=== PATIENT | female | born 1970 | race Caucasian/White ===

== ENCOUNTER 2024-03-19 20:49 | Inpatient (IN) | payer OTHER, SELFPAY ==
[2024-03-19 20:49] VITALS: BP 165/97; PULSE 117; RESP 16; TEMP 36.2; O2SAT 95; BMI 35.9
--- NOTE | 2024-03-19 22:22 | CT_ITS ---
STUDY: CT ABDOMEN AND PELVIS WITH CONTRAST REASON FOR EXAM: Female, 54 years old patient with vomiting, mid-abdominal pain and history of small bowel obstruction. RADIATION DOSAGE (If Supplied By Facility): CTDIvol = ( 17.84 ) mGy, DLP = ( 1245.22 ) mGycm TECHNIQUE: Transaxial images were obtained from the dome of the diaphragm to the symphysis pubis without oral contrast. 100 mL of IV Isovue-370 was administered. Sagittal and coronal images were reconstructed. Individualized dose optimization techniques were used for this CT. COMPARISON: None. FINDINGS: The visualized lung bases are unremarkable. The visualized portions of the heart are within normal limits. There is decreased attenuation of the liver consistent with steatosis. Normal gallbladder and extrahepatic biliary system. Normal spleen. Normal pancreas. Normal bilateral adrenal glands. Normal right kidney. Normal left kidney. Normal visualized stomach. There appears to be dilated proximal small bowel located primarily in the left side of the abdomen with maximum transverse dimension of the abnormal small bowel measuring approximately 3.3 cm. There appears to be some fecalization of small bowel contents in this area consistent with fecal stasis. The small bowel proximal and distal to this are not dilated suggesting closed-loop obstruction possibly secondary to internal hernia or adhesion. The colon is not dilated. There is stool and/or gas scattered throughout the colon with scattered diverticula. The appendix is visualized and appears normal. There is multifocal atherosclerotic calcification of the abdominal aorta and iliac arteries, without a demonstrated aneurysm. Normal inferior vena cava. Normal retroperitoneum. Normal urinary bladder. Normal visualized uterus. Normal abdominal wall. Normal osseous structures. CT/Abdomen/Pelvis W IV Cont ONLY IMPRESSION: Findings are consistent with a proximal small bowel obstruction located primarily within the left side of the abdomen suggesting closed-loop obstruction secondary either to adhesions or internal hernia. Electronically Signed: Grace Mitchell MD at 0:40 EDT ,
--- NOTE | 2024-03-19 22:31 | EDS_ITS ---
HPI HPI - GI History of Present Illness Chief Complaint: Nausea/Vomiting Informant: patient Narrative Narrative: 54-year-old female with abdominal pain and nausea/vomiting. Symptoms started about 2 days ago with upper supraumbilical abdominal pain, moved down to the periumbilical area where it has been, followed by vomiting that has been bilious at times-blackish green according to patient, no blood or coffee-ground emesis. She been having little in the way of bowel movements, her last 1 was small and it was this morning no blood or melena. No diarrhea. She had some subjective fevers and chills earlier but did not check her temperature. No known contacts that have been sick with any of the symptoms. She is concerned that this may be a bowel obstruction some of the symptoms are similar to one that she had in the past. 16 years ago she had colorectal cancer and had a resection with anastomosis. No other abdominal surgeries. [facility] Medical History (Updated 03/20/24 @ 01:[address] Shira Hernandez MD) Obesity Diabetes mellitus, type 2 HLD (hyperlipidemia) Hypertension Colorectal cancer Home Medications ?Medication ?Instructions ?Recorded ?Last Taken ?Type lisinopril 10 mg tablet 10 mg PO DAILY #30 tabs 04/29/17 Unknown Rx atorvastatin 40 mg tablet 40 mg PO QHS cholesterol 03/19/24 Unknown History semaglutide 0.25 mg or 0.5 mg (2 0.5 mg subcut QWEEK 03/19/24 Unknown History mg/3 mL) subcutaneous pen injector (Ozempic) Allergy/AdvReac Type Severity Reaction Status Date / Time oxaliplatin Allergy Anaphylaxis Verified 03/19/24 20:49 Surgical History History of colon resection Social History (Updated 03/20/24 @ 01:[address] Shira Hernandez MD) household members: spouse Smoking Status: Never smoker alcohol intake: never substance use type: does not use ROS ROS ED Constitutional Constitutional ED: Reports chills, fever(s) and subjective Eyes Eyes: Denies change in vision or diplopia ENT ENT ED: Denies rhinorrhea or sore throat Cardiovascular Cardiovascular: Denies chest pain or palpitations Respiratory/Chest Respiratory/Chest: Denies cough or dyspnea Gastrointestinal Gastrointestinal: Reports abdominal pain, nausea and vomiting; Denies diarrhea Genitourinary Genitourinary ED: Denies dysuria or hematuria Musculoskeletal Musculoskeletal: Denies back pain or neck pain Integumentary Denies abscess or rash Neurologic Neurologic: Denies headache(s), paresthesias or weakness Psychiatric Psychiatric: Denies anxiety or suicidal thoughts EXAM Physical Exam Const Vital Signs: 03/19/24 20:49 03/19/24 22:49 03/20/24 00:00 Temperature 97.2 F L Temperature Source Temporal Pulse Rate 117 H 98 90 Respiratory Rate 16 16 18 Blood Pressure 165/97 H 151/89 H 168/77 H Blood Pressure Mean 119 109 107 Pulse Ox 95 92 96 Oxygen Delivery Method Room Air Room Air Room Air Positive well nourished and well developed Constitutional Narrative: Well-appearing General Appearance ED: well developed and NAD HEENT Reports moist mucous membranes normocephalic and atraumatic Eyes PERRL and EOMs intact bilaterally Neck full ROM and supple Resp normal respiratory effort and clear to auscultation bilaterally Cardio regular rate, regular rhythm and no murmurs Rate: tachycardic GI non-distended GI Narrative: Tender epigastric/supraumbilical/periumbilical, mild-moderate, no palpable hernia, good bowel sounds no guarding or rebound no other areas of tenderness. Auscultation: normoactive bowel sounds Palpation: soft Back/Spine no CVA tenderness General Back: other FROM Extremity normal to inspection General Extremety ED: Negative for edema, pulses abnormal or tenderness General Extremity: Negative for edema or pulses abnormal Neuro oriented x3, CN's II-XII intact bilaterally and no sensory deficits noted Sensorium / Orientation: awake and alert Motor Exam: strength 5/5 throughout Psych mental status grossly normal and thought process normal Skin no rashes or lesions noted and no wounds MDM MDM MDM Narrative Medical decision making narrative: Certainly considering small bowel obstruction in addition to large bowel obstruction, in addition to gastroenteritis since she was experiencing subjective fevers. She has a high white blood count, and a CT was obtained. I reviewed the images and the result which I agree with, it is consistent with a proximal small bowel obstruction possible internal hernia versus adhesions. Clinically after IV fluids, Zofran, morphine patient is doing very well with no more vomiting, definitely feeling better, but should be admitted for this. Discussed with surgery Dr. Hendrix who agrees with holding off on NG for right now but advises placing it if the patient continues to vomit, given that this appears to be a closed-loop obstruction and she may end up needing a laparos copy; requests that I speak with hospitalist regarding admission. Lab Data Attestation: I reviewed the patient's lab results. Labs: Laboratory Results - last 24 hr 03/19/24 03/20/24 23:05 00:10 WBC 19.0 H RBC 5.27 Hgb 14.9 Hct 43.9 MCV 83.3 MCH 28.3 MCHC 33.9 RDW Std Deviation 37.2 RDW Coeff of Prema 12.3 Plt Count 376 MPV 10.7 Immature Gran % (Auto) 0.900 Neut % (Auto) 84.6 H Lymph % (Auto) 9.5 L [place] % (Auto) 4.7 Eos % (Auto) 0.0 Baso % (Auto) 0.3 Absolute Neuts (auto) 16.1 H Absolute Lymphs (auto) 1.80 Nucleated RBC % 0 Sodium 136 Potassium 4.1 Chloride 99 Carbon Dioxide 28.0 Anion Gap 9 BUN 16 Creatinine 0.94 Estim Creat Clear Calc 64.02 Est GFR (MDRD) Af Amer 79 Est GFR (MDRD) Non-Af 66 BUN/Creatinine Ratio 17.1 Glucose 276 H Calcium 10.0 Total Bilirubin 0.80 AST 17 ALT 28 Alkaline Phosphatase 85 Total Protein 7.7 Albumin 3.9 Globulin 3.8 Albumin/Globulin Ratio 1.0 Lipase 30 Urine Color Yellow Urine Clarity Clear Urine pH 6.5 Ur Specific Center [place] 1.010 Urine Protein 15 H Urine Glucose (UA) Normal Urine Ketones Negative Urine Occult Blood Negative Urine Nitrite Negative Urine Bilirubin Negative Urine Urobilinogen Normal Ur Leukocyte Esterase 100 H Urine RBC 0 SEEN Urine WBC 0-5 SEEN Ur Squamous Epith Cells 0 SEEN Urine Bacteria 0 SEEN Urine Mucus 0 SEEN Radiography Diagnostic Testing: Clinical Impression(s) from Imaging Studies Abdomen/Pelvis CT 03/19/24 22:22 IMPRESSION: Findings are consistent with a proximal small bowel obstruction located primarily within the left side of the abdomen suggesting closed-loop obstruction secondary either to adhesions or internal hernia. Electronically Signed: Grace Mitchell MD at 0:40 EDT Reading Location ID and State: [facility] / [place] , Service support , Management Discussion w/another healthcare provider: Hospitalist and [employer] (Surgery) Discharge Plan Dx/Rx/DC Orders Clinical Impression: Complete small bowel obstruction Disposition Disposition: Acute Care Hospital [facility]
[2024-03-19 22:49] VITALS: BP 151/89; PULSE 98; RESP 16; O2SAT 92
[2024-03-19] MEDS: Ondansetron 4 MG/2 ML Vial IV (23:01)
[2024-03-19] MEDS: Morphine 4 MG/ML Syringe IV (23:01)
[2024-03-19] MEDS: 0.9% Normal Saline (1000mL) 1,000 ML 999 ML IV (23:03)
[2024-03-19 23:13] LABS: Absolute Neutrophil Count 16.1 X10^3/uL (2.0-7.7); Basophil# 0.05 X10^3/uL; Basophil% 0.3 % (0-1); Hematocrit 43.9 % (37-47); Hemoglobin 14.9 g/dL (12.0-15.0); Lymphocyte % 9.5 % (19-41); Mean Corp Hgb Conc 33.9 g/dL (32-36); Mean Corpuscular Hgb 28.3 pg (27.0-32.0); Mean Corpuscular Volume 83.3 fL (81-99); Mean Platelet Vol. 10.7 fl (6.2-12.0); Monocyte% 4.7 % (0-10); NRBC Flagged by Analyzer 0 % (0-5); Neutrophil # 16.09 X10^3/uL (2.7-7.7); Neutrophil % 84.6 % (47-70); Platelet Count 376 K/mm3 (150-450); RBC Distribution Width CV 12.3 % (11.6-14.6); RBC Distribution Width SD 37.2 fl (35.1-43.9); Red Blood Count 5.27 M/mm3 (4.2-5.4)
[2024-03-19 23:29] LABS: AST(SGOT) 17 U/L (15-37); Alanine Aminotransfer ALT/SGPT 28 U/L (13-56); Albumin, Serum 3.9 g/dL (3.2-5.0); Alkaline Phosphatase 85 U/L (45-117); Anion Gap 9 (5-15); BUN 16 mg/dL (7-18); BUN/Creat Ratio 17.1 RATIO (10-20); Chloride 99 mmol/L (98-107); Creatinine, Serum 0.94 mg/dL (0.55-1.02); EST Glomerular Filtration Rate 66 mL/min (>60); Est Glom Filt Rate - Afr Amer 79 mL/min (>60); Estimated Creatinine Clearance 64.02 ml/min; Globulin 3.8 g/dL (2.2-4.2); Glucose 276 mg/dL (74-106); Lipase 30 U/L (13-75); Potassium 4.1 mmol/L (3.5-5.1); Protein, Total 7.7 g/dL (6.4-8.2); Sodium Level 136 mmol/L (136-145)
--- OUTSIDE RECORDS SUMMARY | 2024-03-19 23:46 | XMS RPT_ITS | CCD ---
Author Organization [facility] Care Team Providers Care Machine Packer Name Role Phone Luis Staely MD Primary Care Provider [phone] LUIS STALEY Primary Care Unavailable CLAIRE, RACHEL Attending Unavailable LUIS STALEY Primary Care Unavailable REBEKA, LUIS Maya Referring Unavailable REBEKA, LUIS Maya Primary Care Unavailable BULOW, RACHEL Referring Unavailable JESUS ORTIZ Attending Unavailable REBEKA, LUIS Maya Primary Care Unavailable BULOW, RACHEL Referring Unavailable REBEKA, LUIS Maya Primary Care Unavailable REBEKA, LUIS Maya Referring Unavailable REBEKA, LUIS Maya Primary Care Unavailable LUIS STALEY Attending Unavailable REBEKA, LUIS Maya Primary Care Unavailable ROLF PATINO Attending Unavailable REBEKA, LUIS Maya Primary Care Unavailable RACHEL ESCALANTE R Attending Unavailable LUIS STALEY Primary Care Unavailable HIGINIO CAMPUZANO Attending Unavailable BRODERICK ANSARI Referring Unavailable REBEKA, LUIS Maya Primary Care Unavailable BULOW, RACHEL Referring Unavailable BULOW, RACHEL Referring Unavailable REBEKA, LUIS Maya Primary Care Unavailable REBEKA, LUIS Maya Primary Care Unavailable BULOW, RACHEL Referring Unavailable REBEKA, LUIS Maya Primary Care Unavailable LUIS STALEY Attending Unavailable REBEKA, LUIS Maya Primary Care Unavailable BULOW, RACHEL Referring Unavailable REBEKA, LUIS Maya Primary Care Unavailable RACHEL ESCALANTE Attending Unavailable LUIS STALEY Primary Care Unavailable REBEKA, LUIS Maya Referring Unavailable REBEKA, LUIS Maya Primary Care Unavailable BULOW, RACHEL Referring Unavailable BRODERICK ANSARI Attending Unavailable REBEKA, LUIS Maya Primary Care Unavailable BULOW, RACHEL Referring Unavailable REBEKA, LUIS Maya Primary Care Unavailable LUIS STALEY Primary Care Unavailable ROLF PATINO Attending Unavailable LUIS STALEY Primary Care Unavailable LUIS STALEY Referring Unavailable Rebeka Luis CHANDLER Primary Care Provider [phone] Allergies Allergy Classification Reported Allergen(s) Allergy Type Date of Onset Reaction(s) Facility oxaliplatin (2 sources) oxaliplatin Drug Allergy 02-22-2008 Anaphylaxis [facility] (20 sources) oxaliplatin; Translations: [OXALIPLATIN] Drug Allergy 02-22-2008 Anaphylaxis [facility] Medications Current Medications Medication Drug Class(es) Dates Sig (Normalized) Sig (Original) acetaminophen 500 mg oral tablet (2 sources) Start: 09-09-2007 End: 12-19-2021 take 1 tablet rectal route once as needed for pain acetaminophen(TYLENO L EXTRA STRENGTH 500 MG TAB) Indications: Malignant neoplasm of rectum (HCC) Take two(2) tablets every six(6) hours as needed for pain. 0 09/09/2007 12/19/2021 Discontinued Comment on above: Take two(2) tablets every six(6) hours as needed for pain. atorvastatin 40 mg oral tablet (20 sources) HMG-CoA Reductase Inhibitor Start: 06-20-2021 End: 01-29-2025 take 1 tablet by mouth once daily at bedtime for hyperlipidemia atorvastatin (LIPITOR) 40 mg tablet Indications: Mixed hyperlipidemia Take 1 tablet by mouth daily at bedtime. For cholesterol. 90 tablet 3 12/13/2022 12/08/2023 Active Comment on above: Take 1 tablet by olu th daily at bedtime. For cholesterol. Blood Glucose Control, Normal soln (20 sources) Start: 03-06-2020 Blood Glucose Control, Normal soln Indications: Diabetes mellitus without complication (HCC) Use as directed 1 Each 1 03/06/2020 Active Comment on above: Use as directed Blood-Glucose Meter (20 sources) Start: 03-06-2020 Blood-Glucose Meter Indications: Diabetes mellitus without complication (HCC) Test One time a day. 1 Each 03/06/2020 Active Start: 03-06-2020 Blood-Glucose Meter Indications: Diabetes mellitus without complication (HCC) Test One time a day. 1 Each 0 03/06/2020 Active Comment on above: Test One time a day. CPAP/BIPAP/OTHER (4 sources) Start: 12-08-2023 End: 04-24-2051 CPAP/BIPAP/OTHER Type .CPAPSettings into a note to see current settings/supplies/DME information. 1 Each 12/08/2023 04/24/2051 Active Start: 12-08-2023 End: 04-24-2051 CPAP/BIPAP/OTHER Type .CPAPS ettings into a note to see current settings/supplies/DME information. 1 Each 0 12/08/2023 04/24/2051 Active lisinopril 20 mg oral tablet (20 sources) Angiotensin Converting Enzyme Inhibitor Start: 06-20-2021 End: 08-02-2024 take 1 tablet by mouth once daily lisinopril (ZESTRIL) 20 mg tablet Indications: Essential hypertension Take 1 tablet by mouth once daily. 90 tablet 1 08/13/2023 02/09/2024 Active Comment on above: Take 1 tablet by olu th once daily. semaglutide (OZEMPIC) 0.25 mg or 0.5 mg (2 mg/3 mL) pen (5 sources) Start: 12-05-2023 End: 12-04-2024 inject 0.5 mg by subcutaneous injection every week semaglutide (OZEMPIC) 0.25 mg or 0.5 mg (2 mg/3 mL) pen Indications: Diabetes mellitus without complication (HCC) Inject 0.5 mg subcutaneously one time a week. 3 mL 11 12/05/2023 12/04/2024 Active Vitamin B Complex (5 sources) vitamin B comple x (B COMPLEX ORAL) Take by mouth once daily. Active vitamin B comple x (B COMPLEX ORAL) Take by mouth once daily. 0 Active Completed/Discontinued Medications Medication Drug Class(es) Dates Sig (Normalized) Sig (Original) Benzocaine (1 source) Standardized Chemical Allergen Start: 11-13-2023 End: 11-13-2023 benzocaine 20% 1 [place] (TOPEX) calcium chloride 0.0014 meq/ml / potassium chloride 0.004 meq/ml / sodium chloride 0.103 meq/ml / sodium lactate 0.028 meq/ml injectable solution (1 source) Start: 11-13-2023 End: 11-13-2023 lactated ringers iv infusion diphenhydrAMINE (1 source) Histamine-1 Receptor Antagonist Start: 11-13-2023 End: 11-13-2023 diphenhydrAMINE 12.5-50 mg injection (BENADRYL) 0.5 ml dulaglutide 3 mg/ml auto-injector (6 sources) GLP-1 Receptor Agonist Start: 12-18-2020 End: 12-19-2022 inject 1 dose by subcutaneous injection every week dulaglutide (TRULICITY) 1.5 mg/0.5 mL pen injector Indications: Diabetes mellitus without complication (HCC) Inject 1.5 mg subcutaneously one time a week. Inject once per week. Discard Pen After, while higher dose of trulicity is unavailable. 2 mL 0 06/17/2022 12/13/2022 Discontinued Comment on above: Inject 1.5 mg subcut aneously one time a week. Inject once per week. Discard Pen After Inject 1.5 mg subcut aneously one time a week. Inject once per week. Discard Pen After, while higher dose of trulicity is unavailable. dulaglutide (TRULICITY) 3 mg/0.5 mL pen injector (4 sources) Start: 12-20-2021 End: 12-13-2022 inject 3 mg by subcutaneous injection every week dulaglutide (TRULICITY) 3 mg/0.5 mL pen injector Inject 3 mg subcutaneously one time a week. 2 mL 12/20/2021 12/13/2022 Discontinued Start: 12-20-2021 End: 12-20-2022 inject 3 mg by subcutaneous injection every week dulaglutide (TRULICITY) 3 mg/0.5 mL pen injector Inject 3 mg subcutaneously one time a week. 2 mL 12/20/2021 12/20/2022 Active Comment on above: Inject 3 mg subcutan eously one time a week. dulaglutide (TRULICITY) 4.5 mg/0.5 mL pen injector (18 sources) Start: End: inject 4.5 mg by subcutaneous injection every week dulaglutide (TRULICITY) 4.5 mg/0.5 mL pen injector Indications: Diabetes mellitus without complication (HCC) Inject 4.5 mg subcutaneously one time a week. 2 mL 12/13/2022 12/05/2023 Discontinued Start: 12-13-2022 End: 12-13-2023 inject 4.5 mg by subcutaneous injection every week dulaglutide (TRULICITY) 4.5 mg/0.5 mL pen injector Indications: Diabetes mellitus without complication (HCC) Inject 4.5 mg subcutaneously one time a week. 2 mL 11 12/13/2022 12/13/2023 Active Comment on above: Inject 4.5 mg subcut aneously one time a week. 1 ml fentaNYL 0.05 mg/ml injection (1 source) Opioid Agonist Start: 11-13-2023 End: 11-13-2023 fentaNYL 50 mcg/mL 25-100 mcg injection (SUBLIMAZE) 5 ml midazolam 1 mg/ml injection (1 source) Benzodiazepine Start: 11-13-2023 End: 11-13-2023 midazolam 1-5 mg injection (VERSED) Problems Active Problems Problem Classification Problem Date Documented Da te Episodic/Chronic Diabetes mellitus without complication (20 sources) Diabetes mellitus without complication; Translations: [Type 2 diabetes mellitus without complications] Onset: 09-06-2013 10-24-2015 Chronic Disorders of lipid metabolism (20 sources) Mixed hyperlipidemia; Translations: [Mixed hyperlipidemia] Onset: 02-28-2006 02-28-2006 Chronic Essential hypertension (20 sources) Essential hypertension; Translations: [Essential (primary) hypertension] Onset: 02-28-2006 08-08-2017 Chronic Nutritional deficiencies (20 sources) Vitamin D deficiency; Translations: [Vitamin D deficiency, unspecified] Onset: 07-09-2010 Resolved: 12-18-2020 09-06-2013 Chronic Other liver diseases (1 source) Alkaline phosphatase raised; Translations: [Abnormal levels of other serum enzymes] 12-02-2023 Episodic Other liver diseases (1 source) Abnormal levels of other serum enzymes; Translations: [Elevated alkaline phosphatase level] Onset: 12-05-2023 Episodic Other nutritional; endocrine; and metabolic disorders (20 sources) Obese class II; Translations: [Obesity, unspecified] Onset: 12-13-2022 12-13-2022 Chronic Other nutritional; endocrine; and metabolic disorders (17 sources) Severe obesity; Translations: [Morbid (severe) obesity due to excess calories] Onset: 11-05-2010 10-02-2023 Chronic Other nutritional; endocrine; and metabolic disorders (1 source) Morbid (severe) obesity due to excess calories; Translations: [Class 2 severe obesity with serious comorbidity and body mass index (BMI) of 35.0 to 35.9 in adult, unspecified obesity type (HCC)] Onset: 11-13-2023 Chronic Other nutritional; endocrine; and metabolic disorders (1 source) Body mass index (BMI) 35.0-35.9, adult; Translations: [Class 2 severe obesity with serious comorbidity and body mass index (BMI) of 35.0 to 35.9 in adult, unspecified obesity type (HCC)] Onset: 11-13-2023 Chronic Other nutritional; endocrine; and metabolic disorders (1 source) Obesity, unspecified; Translations: [Obesity, Class II, BMI 35-39.9] Onset: 12-13-2022 Chronic Residual codes; unclassified (1 source) Obstructive sleep apnea syndrome; Translations: [Obstructive sleep apnea (adult) (pediatric)] 12-08-2023 Chronic Past or Other Problems Problem Classification Problem Date Documented Da te Episodic/Chronic Cancer of colon (20 sources) Malignant tumor of colon; Translations: [Malignant neoplasm of colon, unspecified] Onset: 09-02-2007 Resolved: 12-13-2022 06-20-2021 Chronic Cancer of rectum and anus (20 sources) Malignant tumor of rectum; Translations: [Malignant neoplasm of rectum] Onset: 09-10-2007 Resolved: 12-13-2022 09-10-2007 Chronic Cancer of rectum and anus (20 sources) History of malignant neoplasm of digestive organ; Translations: [Personal history of other malignant neoplasm of rectum, rectosigmoid junction, and anus] Onset: 08-15-2008 Resolved: 12-18-2020 06-28-2014 Episodic Deficiency and other anemia (20 sources) Anemia in neoplastic disease; Translations: [Anemia in neoplastic disease] Onset: 03-28-2008 Resolved: 12-13-2022 03-28-2008 Chronic Esophageal disorders (20 sources) Esophagitis; Translations: [Esophagitis, unspecified] Onset: 09-02-2007 09-02-2007 Episodic Gastritis and duodenitis (20 sources) Acute gastritis; Translations: [Acute gastritis without bleeding] Onset: 09-02-2007 09-02-2007 Episodic Gastrointestinal hemorrhage (17 sources) Hematochezia; Translations: [Melena] Onset: 08-10-2007 Resolved: 12-18-2020 12-18-2020 Episodic Mood disorders (20 sources) Depressive disorder; Translations: [Depression] Onset: 12-21-2010 Resolved: 12-13-2022 12-21-2010 Chronic Other nutritional; endocrine; and metabolic disorders (12 sources) Obesity; Translations: [Obesity, unspecified] Onset: 11-05-2010 Resolved: 12-13-2022 11-05-2010 Chronic Other nutritional; endocrine; and metabolic disorders (17 sources) Metabolic syndrome X; Translations: [Dysmetabolic syndrome] Onset: 10-03-2010 Resolved: 11-03-2013 11-03-2013 Chronic Other screening for suspected conditions (not mental disorders or infectious disease) (6 sources) Patient encounter status; Translations: [Encounter for screening mammogram for malignant neoplasm of breast] Onset: 09-05-2023 Episodic Other skin disorders (17 sources) Sebaceous cyst of skin; Translations: [Sebaceous cyst] Onset: 03-13-2007 Resolved: 12-18-2020 12-18-2020 Episodic Ovarian cyst (20 sources) Cyst of ovary; Translations: [Unspecified ovarian cyst, unspecified side] Onset: 09-29-2008 Resolved: 12-13-2022 09-29-2008 Episodic Secondary malignancies (20 sources) Secondary malignant neoplasm of intrapelvic lymph nodes; Translations: [Secondary and unspecified malignant neoplasm of intrapelvic lymph nodes] Onset: 12-14-2007 Resolved: 12-13-2022 12-14-2007 Chronic Viral infection (20 sources) Herpes simplex; Translations: [Herpesviral infection, unspecified] Onset: 10-03-2010 10-03-2010 Episodic Results Test Name Value Interpretation Reference Range [facility] 01-09-2024 CNCO Letter Text Normal [facility] 01-02-2024 CNCO Letter Text Normal [facility] CNOVon 12-08-2023 CNOV Office Visit ([facility] ) ANGELIQUE WYNNE ([id number]) 1970 F Date Time Provider Department 12/08/23 10:00 AM JESUS ORTIZ During your visit today, we recorded the following information about you: Pulse Blood pressure Weight Height 79/minute 123/79 81.6 kg 1.499 m Jesus Ortiz, MD 12/08/2023 10:05 AM Signed [facility] New Patient Evaluation PATIENT NAME: Angelique Wynne DATE OF SERVICE: December 08, 2023 CONSULTING PROVIDER: Rachel Mcmillan [address] [facility] [id number] REASON FOR CONSULT: Rachel Mcmillan sends the patient for an opinion about Home Sleep Study results. My findings and recommendations will be transmitted electronically via shared medical record to the consulting provider. HPI: Angelique Wynne is a 53 year old female. Sleep-related history: Mrs. Wynne has been snoring for 5 years, but she feels mostly refreshed during the day. She does not wake up frequently during the night, and she gets about 7 hours of sleep per night. SLEEP-WAKE SCHEDULE She is a self-described morning person. Bedtime: 10 PM. She does not have a hard time falling asleep. Wake time: 5 AM, with an alarm. After falling asleep: she wakes up 1 time(s) per night, because of the need to urinate. On weekends, she maintains the same sleep schedule. Average total sleep time (in a 24 hour period): 7 hours. SLEEP-RELATED DETAILS Preferred sleep position: side Breathing disturbances and other behaviors during sleep: snoring. Bruxism: No GERD or aspiration: No Waking up with heart pounding or racing: No Anxiety or rumination: No She does not report having an urge to move the legs in the evening (when resting) that is accompanied or caused by uncomfortable and/or unpleasant sensations in the legs. She has not been told that she has leg kicking during sleep. She denies any history of parasomnias. Daytime sleepiness is not a problem. She does not report sleep paralysis or sleep-related hallucinations or cataplexy. WAKE-RELATED DETAILS She works but is not a shift worker. She does not have difficulty with memory or concentration. She denies falling asleep or dozing off when driving. She does not take naps. She does not drink caffeinated beverages. There has not been a recent change in weight. Patient Questionnaires Sleep Scores 12/01/2023 Sleep Questions Reason for visit: Sleep apnea On average, hours of sleep in 24 hours: 7 Accidents or near accidents due to drowsy drivin 12/01/2023 PROMIS CAT Sleep Disturbance PROMIS Sleep Disturbance T-Score 44 (within normal limits) PROMIS Sleep Disturbance Percentile 73 12/01/2023 PHQ-9 Score 0 09/30/2023 PROMIS Global Health - (T-Scores - the mean of general population = 50. Five points is a clinically meaningful difference.) Physical T-Score 50.8 Mental T-Score 53.3 [place] Sleepiness Scale Sitting and Reading? no chance of dozing (0) Watching TV? no chance of dozing (0) Sitting inactive in a public place (e.g a theater or a meeting) no chance of dozing (0) As a passenger in a car for an hour without a break? no chance of dozing (0) Lying down to rest in the afternoon when circumstances permit? no chance of dozing (0) Sitting and talking to someone? no chance of dozing (0) Sitting quietly after lunch without alcohol? no chance of dozing (0) In a car, while stopped for a few minutes in traffic? no chance of dozing (0) Total Score NORMAL (0) PAST TREATMENTS: None PRIOR SLEEP STUDIES: A Home Sleep Test (HST) performed on 11/06/2023 revealed an AHI of 16.3; supine index of 12.4; and a minimum oxygen saturation of 81%. 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 Other and unspecified hyperlipidemia Personal history of malignant neoplasm of rectum, rectosigmoid junction, and anus PAST SURGICAL HISTORY Procedure Laterality Date COLECTOMY PARTIAL W/ANASTOMOSIS low anterior resection 31ceea anastamosis COLON SURGERY HX COLONOSCOPY FLX DX W/COLLJ SPEC WHEN PFRMD clean anastamosis COLONOSCOPY FLX DX W/COLLJ SPEC WHEN PFRMD 10/23/09, 11/05/11 clean anastamosis - recommend 3 year follow up COLONOSCOPY FLX DX W/COLLJ SPEC WHEN PFRMD 01/03/15 clean anastamosis - recommend 5 year follow up COLONOSCOPY FLX DX W/COLLJ SPEC WHEN PFRMD 01/06/2020 Colonoscopy COLONOSCOPY W/BIOPSY SINGLE/MULTIPLE 09/02/07 EGD TRANSORAL BIOPSY SINGLE/MULTIPLE 09/02/07 EGD TRANSORAL BIOPSY SINGLE/MULTIPLE INSJ TUNNELED CTR VAD W/SUBQ PORT AGE 5 YR/> 11/20/2007 Left Subclavian REMOVED PAST SURGICAL HISTORY OF (more content not included)... Normal [facility] ALKALINE PHOSPHATASE ISOENZY MES (P)on 12-05-2023 ALK PHOS BONE % 45.3 % Normal 10.7-68.3 [facility] Comment on above: Order Comment: Speci men Type: BLOOD SPECIMENOrdering Facility: [facility] Address: [address] [place] [address] Performed By: #### A LKISOP ####[facility] LABIA [id number] [place] [address] [place] ALK PHOS LIVER % 54.7 % Normal 26.0-86.2 [facility] Comment on above: Order Comment: Speci men Type: BLOOD SPECIMENOrdering Facility: [facility] Address: [address] [place] [address] Performed By: #### A LKISOP ####[facility] LABCLIA [id number] [place] [address] [place] BONE FRACTION 39.4 U/L Normal 12.9-52.6 [facility] Comment on above: Order Comment: Speci men Type: BLOOD SPECIMENOrdering Facility: [facility] Address: [address] [place] [address] Performed By: #### A LKISOP ####[facility] LABCLIA [id number] [place] [address] [place] INTESTINE FRACTION 0.0 U/L Normal 0.0-16.3 [facility] Comment on above: Order Comment: Speci men Type: BLOOD SPECIMENOrdering Facility: [facility] Address: [address] [place] [address] Performed By: #### A LKISOP ####[facility] LABCLIA [id number] [place] [address] [place] LIVER FRACTION 47.6 U/L Normal 16.0-69.3 [facility] Comment on above: Order Comment: Speci dar Type: BLOOD SPECIMENOrdering Facility: [facility] Address: [address] [place] [address] Performed By: #### A LKISOP ####[facility] LABIA [id number] [place] [address] [place] Neutrophils/100 WBC (Bld) 0.0 % Normal 0.0-24.2 [facility] Comment on above: Order Comment: Speci men Type: BLOOD SPECIMENOrdering Facility: [facility] Address: [address] [place] [address] Performed By: #### A LKISOP ####[facility] LABCLIA [id number] [place] [address] [place] ALP SerPl-cCncon 12-05-2023 ALP [Catalytic activity/Vol] 87 U/L Normal 34-123 [facility] Comment on above: Order Comment: Speci men Type: BLOOD SPECIMENOrdering Facility: [facility] Address: [address] [place] [address] Performed By: #### [id number] ####[facility] [id number] [place] [address] [place] CNOVon 12-05-2023 [facility] ANGELIQUE WYNNE ([id number]) 1970 F Date Time Provider Department 12/05/23 10:00 AM [facility] During your visit today, we recorded the following information about you: Pulse Blood pressure Weight 81/minute 118/75 83.5 kg Luis Staley MD 12/05/2023 10:28 AM Signed Patient presents with: 6 Month Exam HPI: Patient presents today for office visit for follow up. Diabetes: Taking Trulicity 4.5 mg weekly for her diabetes. Has had some trouble getting it. Not checking glucose at home. HYPERLIPIDEMIA: Patient is taking medications: Yes. Patient is watching diet: Yes. Patient denies myalgias: Yes. Patient denies gi upset: Yes HTN: Patient is compliant with meds Yes Monitors bp at home: Yes. Denies side effects: Yes. Chest pain: No. Dyspnea: No. Edema: No. Palpitations: No. Syncope: No. Headache: No. Dizziness: No. Getting bypass surgery at some point. Latest Ref Rng 12/01/2023 WBC 3.70 - 11.00 k/uL 8.63 RBC 3.90 - 5.20 m/uL 4.86 Hemoglobin 11.5 - 15.5 g/dL 13.6 Hematocrit 36.0 - 46.0 % 42.1 MCV 80.0 - 100.0 fL 86.6 MCH 26.0 - 34.0 pg 28.0 MCHC 30.5 - 36.0 g/dL 32.3 RDW-CV 11.5 - 15.0 % 12.4 Platelet Count 150 - 400 k/uL 273 MPV 9.0 - 12.7 fL 11.6 Neut% % 61.8 Abs Neut (ANC) 1.45 - 7.50 k/uL 5.33 Lymph% % 29.1 Abs Lymph 1.00 - 4.00 k/uL 2.51 Broome% % 5.2 Abs Broome <0.87 k/uL 0.45 Eosin% % 2.9 Abs Eosin <0.46 k/uL 0.25 Baso% % 0.7 Abs Baso <0.11 k/uL 0.06 Immature Gran % % 0.3 IMMATURE GRANS (ABS) <0.10 k/uL 0.03 NRBC /100 WBC 0.0 Absolute nRBC <0.01 k/uL <0.01 DTYPE Auto Protein, Total 6.3 - 8.0 g/dL 6.8 Albumin 3.9 - 4.9 g/dL 4.3 Calcium 8.5 - 10.2 mg/dL 10.2 Bilirubin, Total 0.2 - 1.3 mg/dL 0.3 Alkaline Phosphatase 34 - 123 U/L 146 (H) AST 13 - 35 U/L 25 ALT 7 - 38 U/L 25 Glucose 74 - 99 mg/dL 91 BUN 7 - 21 mg/dL 14 Creatinine 0.58 - 0.96 mg/dL 0.73 Sodium 136 - 144 mmol/L 141 Potassium 3.7 - 5.1 mmol/L 4.2 Chloride 98 - 107 mmol/L 106 CO2 22 - 30 mmol/L 22 Anion Gap 8 - 15 mmol/L 13 eGFR >=60 mL/min/1.73m? 97 Cholesterol, Total <200 mg/dL 111 Triglyceride <150 mg/dL 145 HDL Cholesterol >39 mg/dL 55 Non HDL Cholesterol <130 mg/dL 56 Fasting Time hrs 12 VLDL Cholesterol <30 mg/dL 29 TC:HDL Ratio <5.10 2.02 LDL Cholesterol <100 mg/dL 27 LDL:HDL Ratio <2.54 0.49 Creatinine, Ur Random (UCRR) 20.0 - 300.0 mg/dL 121.4 Albumin, Urine Random mg/L <12.0 Albumin/Creat Ratio <30 mg/g <10 Hemoglobin A1C 4.3 - 5.6 % 5.9 (H) Estimated Average Glucose mg/dL 123 CEA <=2.9 ng/mL 0.6 Legend: (H) High MEDICATIONS: Current Outpatient Medications Medication Sig vitamin B complex (B COMPLEX ORAL) Take by mouth once daily. lisinopril (ZESTRIL) 20 mg tablet Take 1 tablet by mouth once daily. dulaglutide (TRULICITY) 4.5 mg/0.5 mL pen injector Inject 4.5 mg subcutaneously one time a week. atorvastatin (LIPITOR) 40 mg tablet Take 1 tablet by mouth daily at bedtime. For cholesterol. Lancets lancets Use with blood glucose test once daily. Insulin Dep? Yes blood sugar diagnostic test strip Use with blood glucose test once daily, Insulin Dep? No Blood-Glucose Meter Test One time a day. Blood Glucose Control, Normal soln Use as directed No current facility-administered medications for this visit. 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 Other and unspecified hyperlipidemia Personal history of malignant neoplasm of rectum, rectosigmoid junction, and anus PAST SURGICAL HISTORY Procedure Laterality Date COLECTOMY PARTIAL W/ANASTOMOSIS low anterior resection 31ceea anastamosis COLON SURGERY HX COLONOSCOPY FLX DX W/COLLJ SPEC WHEN PFRMD clean anastamosis COLONOSCOPY FLX DX W/COLLJ SPEC WHEN PFRMD 10/23/09, 11/05/11 clean anastamosis - recommend 3 year follow up COLONOSCOPY FLX DX W/COLLJ SPEC WHEN PFRMD 01/03/15 clean anastamosis - recommend 5 year follow up COLONOSCOPY FLX DX W/COLLJ SPEC WHEN PFRMD 01/06/2020 Colonoscopy COLONOSCOPY W/BIOPSY SINGLE/MULTIPLE 09/02/07 EGD TRANSORAL BIOPSY SINGLE/MULTIPLE 09/02/07 EGD TRANSORAL BIOPSY SINGLE/MULTIPLE INSJ TUNNELED CTR VAD W/SUBQ PORT AGE 3 YR/> 11/20/2007 Left Subclavian REMOVED PAST SURGICAL HISTORY OF 2004 needle biopsy of the left breast FAMILY HISTORY Adopted: Yes Problem Relation Age of Onset Diabetes Father Heart Father 62 from mi Hypertension Father Heart Sister cancer--possible heart attack with chemo other (Crohn's Disease) Daughter Soci (more content not included)... [facility] [employer] ANGELIQUE WYNNE ([id number]) 1970 F Date Time Provider Department 12/02/23 LUIS STALEY [facility] During your visit today, we recorded the following information about you: Luis Staley MD 12/02/2023 11:38 AM Signed Labs are all ok. Only thing slightly abnormal is a mildly increased alk phos. A blood enzyme that can occur from a number of sources and may be a benign finding in many people. I would simply repeat it in a few weeks and break it down. Luz Marina Leung MA 12/02/2023 12:38 PM Signed Patient informed and verbalized understanding. Luz Marina Leung MA Allergies As of Date: 12/02/2023 Noted Allergy Reaction OXALIPLATIN 02/22/2008 10 - Anaphylaxis Comments: Went to [facility] ER 02/08/08 Date Reviewed: 11/28/2023 Reviewed by: Rolf Patino RD - Fully Assessed Reason for Visit: Results [95] Primary Visit Diagnosis:Elevated alkaline phosphatase level [R74.8] Order(s):ALK PHOS ISOENZYM BL [SQALKISO] Order #: [id number] FUTURE Prescriptions as of 12/02/2023 - lisinopril (ZESTRIL) 20 mg tablet Take 1 tablet by mouth once daily. - Lancets lancets Use with blood glucose test once daily. Insulin Dep? Yes - blood sugar diagnostic test strip Use with blood glucose test once daily, Insulin Dep? No - dulaglutide (TRULICITY) 4.5 mg/0.5 mL pen injector Inject 4.5 mg subcutaneously one time a week. - atorvastatin (LIPITOR) 40 mg tablet Take 1 tablet by mouth daily at bedtime. For cholesterol. - Blood-Glucose Meter Test One time a day. 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] 03/28/2008 12/13/2022 Personal history of malignant neoplasm of rectu*08/15/2008 12/18/2020 Other and unspecified ovarian cyst [N83.209] 09/29/2008 12/13/2022 Unspecified vitamin D deficiency [E55.9] 07/09/2010 12/18/2020 Dysmetabolic syndrome [E88.810] 10/03/2010 11/03/2013 Herpes simplex [B00.9] 10/03/2010 Class 2 severe obesity with serious comorbidity*11/05/2010 Depression [F32.A] 12/21/2010 12/13/2022 Diabetes mellitus without complication (HCC) [E*09/06/2013 Vitamin D deficiency [E55.9] 09/06/2013 Personal history of rectal cancer [Z85.048] 06/28/2014 Obesity, Class II, BMI 35-39.9 [E66.9] 12/13/2022 Encounter Status:Closed by LUZ MARINA LEUNG on 12/02/23 Normal [facility] ALBUMIN/CREATININE RATIO, UR INEon 12-01-2023 Albumin DL <= 20 mg/L (U) [Mass/Vol] mg/dL Normal [facility] Comment on above: Order Comment: Speci men Type: URINE SPECIMENOrdering Facility: [facility] Address: [address] [place] [address] Performed By: #### U ACR ####[facility] LABCLIA [id number] [place] [address] [place] Albumin/Creatinine (U) [Mass ratio] <10 Normal <30 [facility] Comment on above: Order Comment: Speci men Type: URINE SPECIMENOrdering Facility: [facility] Address: [address] [place] [address] Result Comment: Adul t Male and Female Nephrotic Criteria: <30 mg/g is considered normal to mildly increased 30-300 mg/g is considered moderately increased >300 mg/g is considered severely increased KDIGO. (2013). KDIGO 2012 Clinical Practice Guideline for the Evaluation and Management of Chronic Kidney Disease. Official Journal of the International Society of Nephrology, 3(1), 1-150. Performed By: #### U ACR ####[facility] LABCLIA [id number] [place] [address] [place] Creatinine (U) [Mass/Vol] 121.4 mg/dL Normal 20.0-300.0 [facility] Comment on above: Order Comment: Speci men Type: URINE SPECIMENOrdering Facility: [facility] Address: [address] [place] [address] Performed By: #### U ACR ####[facility] LABIA [id number] [place] [address] [place] CBC W Auto Differential pane l (Bld)on 12-01-2023 Basophils (Bld) [#/Vol] 0.06 10*3/uL Normal <0.11 [facility] Comment on above: Order Comment: Speci men Type: BLOOD SPECIMENOrdering Facility: [facility] Address: [address] [place] [address] Performed By: #### 5 7021-8 ####[facility] LABIA [id number] [place] [address] [place] Basophils/100 WBC (Bld) 0.7 % Normal [facility] Comment on above: Order Comment: Speci men Type: BLOOD SPECIMENOrdering Facility: [facility] Address: [address] [place] [address] Performed By: #### 5 7021-8 ####[facility] LABIA [id number] [place] [address] [place] Differential cell count method Nom (Bld) Auto Normal [facility] Comment on above: Order Comment: Speci men Type: BLOOD SPECIMENOrdering Facility: [facility] Address: [address] [place] [address] Performed By: #### 5 7021-8 ####[facility] LABCLIA [id number] [place] [address] [place] Eosinophils (Bld) [#/Vol] 0.25 10*3/uL Normal <0.46 [facility] Comment on above: Order Comment: Speci men Type: BLOOD SPECIMENOrdering Facility: [facility] Address: [address] [place] [address] Performed By: #### 5 7021-8 ####[facility] LABIA [id number] [place] [address] [place] Eosinophils/100 WBC (Bld) 2.9 % Normal [facility] Comment on above: Order Comment: Speci men Type: BLOOD SPECIMENOrdering Facility: [facility] Address: [address] [place] [address] Performed By: #### 5 7021-8 ####[facility] LABIA [id number] [place] [address] [place] Erythrocyte distribution width (RBC) [Ratio] 12.4 % Normal 11.5-15.0 [facility] Comment on above: Order Comment: Speci men Type: BLOOD SPECIMENOrdering Facility: [facility] Address: [address] [place] [address] Performed By: #### 5 7021-8 ####[facility] LABIA [id number] [place] [address] [place] Hematocrit (Bld) [Volume fraction] 42.1 % Normal 36.0-46.0 [facility] Comment on above: Order Comment: Speci men Type: BLOOD SPECIMENOrdering Facility: [facility] Address: [address] [place] [address] Performed By: #### 5 7021-8 ####[facility] LABIA [id number] [place] [address] [place] Hemoglobin (Bld) [Mass/Vol] 13.6 g/dL Normal 11.5-15.5 [facility] Comment on above: Order Comment: Speci men Type: BLOOD SPECIMENOrdering Facility: [facility] Address: [address] [place] [address] Performed By: #### 5 7021-8 ####[facility] LABCLIA [id number] [place] [address] [place] Immature granulocytes (Bld) [#/Vol] 0.03 10*3/uL Normal <0.10 [facility] Comment on above: Order Comment: Speci men Type: BLOOD SPECIMENOrdering Facility: [facility] Address: [address] [place] [address] Performed By: #### 5 7021-8 ####[facility] LABCLIA [id number] [place] [address] [place] Immature granulocytes/100 WBC (Bld) 0.3 % Normal [facility] Comment on above: Order Comment: Speci men Type: BLOOD SPECIMENOrdering Facility: [facility] Address: [address] [place] [address] Performed By: #### 5 7021-8 ####[facility] LABCLIA [id number] [place] [address] [place] Lymphocytes (Bld) [#/Vol] 2.51 10*3/uL Normal 1.00-4.00 [facility] Comment on above: Order Comment: Speci men Type: BLOOD SPECIMENOrdering Facility: [facility] Address: [address] [place] [address] Performed By: #### 5 7021-8 ####[facility] LABCLIA [id number] [place] [address] [place] Lymphocytes/100 WBC (Bld) 29.1 % Normal [facility] Comment on above: Order Comment: Speci men Type: BLOOD SPECIMENOrdering Facility: [facility] Address: [address] [place] [address] Performed By: #### 5 7021-8 ####[facility] LABCLIA [id number] [place] [address] [place] MCH (RBC) [Entitic mass] 28.0 pg Normal 26.0-34.0 [facility] Comment on above: Order Comment: Speci men Type: BLOOD SPECIMENOrdering Facility: [facility] Address: [address] [place] [address] Performed By: #### 5 7021-8 ####[facility] LABCLIA [id number] [place] [address] [place] MCHC (RBC) [Mass/Vol] 32.3 g/dL Normal 30.5-36.0 [facility] Comment on above: Order Comment: Speci men Type: BLOOD SPECIMENOrdering Facility: [facility] Address: [address] [place] [address] Performed By: #### 5 7021-8 ####[facility] LABIA [id number] [place] [address] [place] MCV (RBC) [Entitic vol] 86.6 fL Normal 80.0-100.0 [facility] Comment on above: Order Comment: Speci men Type: BLOOD SPECIMENOrdering Facility: [facility] Address: [address] [place] [address] Performed By: #### 5 7021-8 ####[facility] LABIA [id number] [place] [address] [place] Monocytes (Bld) [#/Vol] 0.45 10*3/uL Normal <0.87 [facility] Comment on above: Order Comment: Speci men Type: BLOOD SPECIMENOrdering Facility: [facility] Address: [address] [place] [address] Performed By: #### 5 7021-8 ####[facility] LABIA [id number] [place] [address] [place] Monocytes/100 WBC (Bld) 5.2 % Normal [facility] Comment on above: Order Comment: Speci men Type: BLOOD SPECIMENOrdering Facility: [facility] Address: [address] [place] [address] Performed By: #### 5 7021-8 ####[facility] LABCLIA [id number] [place] [address] [place] Neutrophils (Bld) [#/Vol] 5.33 10*3/uL Normal 1.45-7.50 [facility] Comment on above: Order Comment: Speci men Type: BLOOD SPECIMENOrdering Facility: [facility] Address: [address] [place] [address] Performed By: #### 5 7021-8 ####[facility] LABCLIA [id number] [place] [address] [place] Neutrophils/100 WBC (Bld) 61.8 % Normal [facility] Comment on above: Order Comment: Speci men Type: BLOOD SPECIMENOrdering Facility: [facility] Address: [address] [place] [address] Performed By: #### 5 7021-8 ####[facility] LABCLIA [id number] [place] [address] [place] Nucleated RBC (Bld) [#/Vol] 10*3/uL Normal <0.01 [facility] Comment on above: Order Comment: Speci men Type: BLOOD SPECIMENOrdering Facility: [facility] Address: [address] [place] [address] Performed By: #### 5 7021-8 ####[facility] LABCLIA [id number] [place] [address] [place] Nucleated RBC/100 WBC (Bld) [Ratio] 0.0 /100 WBC Normal [facility] Comment on above: Order Comment: Speci men Type: BLOOD SPECIMENOrdering Facility: [facility] Address: [address] [place] [address] Performed By: #### 5 7021-8 ####[facility] LABCLIA [id number] [place] [address] [place] Platelet mean volume (Bld) [Entitic vol] 11.6 fL Normal 9.0-12.7 [facility] Comment on above: Order Comment: Speci men Type: BLOOD SPECIMENOrdering Facility: [facility] Address: [address] [place] [address] Performed By: #### 5 7021-8 ####[facility] LABCLIA [id number] [place] [address] [place] Platelets (Bld) [#/Vol] 273 10*3/uL Normal 150-400 [facility] Comment on above: Order Comment: Speci men Type: BLOOD SPECIMENOrdering Facility: [facility] Address: [address] [place] [address] Performed By: #### 5 7021-8 ####[facility] LABCLIA [id number] [place] [address] [place] RBC (Bld) [#/Vol] 4.86 10*6/uL Normal 3.90-5.20 [facility] Comment on above: Order Comment: Speci men Type: BLOOD SPECIMENOrdering Facility: [facility] Address: [address] [place] [address] Performed By: #### 5 7021-8 ####[facility] LABCLIA [id number] [place] [address] [place] WBC (Bld) [#/Vol] 8.63 10*3/uL Normal 3.70-11.00 [facility] Comment on above: Order Comment: Speci men Type: BLOOD SPECIMENOrdering Facility: [facility] Address: [address] [place] [address] Performed By: #### 5 7021-8 ####[facility] LABCLIA [id number] [place] [id number] [place] CEA SerPl-mCncon 12-01-2023 Carcinoembryonic Ag [Mass/Vol] 0.6 ng/mL Normal <=2.9 [facility] Comment on above: Order Comment: Speci men Type: BLOOD SPECIMENOrdering Facility: [facility] Address: [address] [place] [address] Result Comment: Carc inoembryonic antigen test is used as an aid in monitoring response to treatment or recurrence in patients with established colorectal, breast, lung, prostatic, pancreatic, and ovarian carcinomas. Clinical correlation is required. The Carcinoembryonic antigen test was performed using the [employer] DXI paramagnetic particle chemiluminescent immunoassay method. Results obtained with different assay methods or kits cannot be used interchangeably. Performed By: #### 2 039-6 ####[facility] LABCLIA [id number] [place] [address] [place] Comprehensive metabolic 2000 panelon 12-01-2023 Albumin [Mass/Vol] 4.3 g/dL Normal 3.9-4.9 [facility] Comment on above: Order Comment: Speci men Type: BLOOD SPECIMENOrdering Facility: [facility] Address: [address] [place] [address] Performed By: #### 2 4323-8, 69928-9 ####[facility] LABCLIA [id number] [place] [address] [place] ALP [Catalytic activity/Vol] 146 U/L High 34-123 [facility] Comment on above: Order Comment: Speci men Type: BLOOD SPECIMENOrdering Facility: [facility] Address: [address] [place] [address] Performed By: #### 2 4323-8, 03928-5 ####[facility] LABCLIA [id number] [place] [id number] [place] ALT [Catalytic activity/Vol] 25 U/L Normal 7-38 [facility] Comment on above: Order Comment: Speci men Type: BLOOD SPECIMENOrdering Facility: [facility] Address: [address] [place] [address] Performed By: #### 2 4323-8, 22087-6 ####[facility] LABCLIA [id number] [place] [address] [place] Anion gap [Moles/Vol] 13 mmol/L Normal 8-15 [facility] Comment on above: Order Comment: Speci men Type: BLOOD SPECIMENOrdering Facility: [facility] Address: [address] [place] [address] Performed By: #### 2 4323-8, 43736-4 ####[facility] LABCLIA [id number] [place] [address] [place] AST [Catalytic activity/Vol] 25 U/L Normal 13-35 [facility] Comment on above: Order Comment: Speci men Type: BLOOD SPECIMENOrdering Facility: [facility] Address: [address] [place] [address] Performed By: #### 2 4323-8, 78035-2 ####[facility] LABCLIA [id number] [place] [address] [place] Bilirubin [Mass/Vol] 0.3 mg/dL Normal 0.2-1.3 [facility] Comment on above: Order Comment: Speci men Type: BLOOD SPECIMENOrdering Facility: [facility] Address: [address] [place] [address] Performed By: #### 2 4323-8, 28406-5 ####[facility] LABCLIA [id number] [place] [address] [place] Calcium [Mass/Vol] 10.2 mg/dL Normal 8.5-10.2 [facility] Comment on above: Order Comment: Speci men Type: BLOOD SPECIMENOrdering Facility: [facility] Address: [address] [place] [address] Performed By: #### 2 4323-8, 79778-9 ####[facility] LABCLIA [id number] [place] [address] [place] Chloride [Moles/Vol] 106 mmol/L Normal 98-107 [facility] Comment on above: Order Comment: Speci men Type: BLOOD SPECIMENOrdering Facility: [facility] Address: [address] [place] [address] Performed By: #### 2 4323-8, 43529-9 ####[facility] LABCLIA [id number] [place] [address] [place] CO2 [Moles/Vol] 22 mmol/L Normal 22-30 [facility] Comment on above: Order Comment: Speci men Type: BLOOD SPECIMENOrdering Facility: [facility] Address: [address] [place] [address] Performed By: #### 2 4323-8, 34768-7 ####[facility] LABIA [id number] [place] [address] [place] Creatinine [Mass/Vol] 0.73 mg/dL Normal 0.58-0.96 [facility] Comment on above: Order Comment: Speci men Type: BLOOD SPECIMENOrdering Facility: [facility] Address: [address] [place] [address] Performed By: #### 2 4323-8, 38923-5 ####[facility] LABIA [id number] [address] [place] Creatinine and Glomerular filtration rate.predicted panel (S/P/Bld) 97 mL/min/1.73m??? Normal >=60 [facility] Comment on above: Order Comment: Speci men Type: BLOOD SPECIMENOrdering Facility: [facility] Address: [address] [place] [address] Result Comment: Patricia mated Glomerular Filtration Rate (eGFR) is calculated using the 2020 CKD-EPI creatinine equation. This equation utilizes serum creatinine, sex, and age as parameters. The creatinine assay has traceable calibration to isotope dilution-mass spectrometry. Refer to KDIGO guidelines for clinical interpretation. In patients with unstable renal function, e.g. those with acute kidney injury, the eGFR may not accurately reflect actual GFR. Performed By: #### 2 4323-8, 58914-1 ####[facility] LABCLIA [id number] [place] [address] [place] Glucose [Mass/Vol] 91 mg/dL Normal 74-99 [facility] Comment on above: Order Comment: Speci men Type: BLOOD SPECIMENOrdering Facility: [facility] Address: [address] [place] [address] Result Comment: The [place] Diabetes Association (ADA) provides guidance for cutoff values for fasting glucose and random glucose. The ADA defines fasting as no caloric intake for at least 8 hours. Fasting plasma glucose results between 100 to 125 mg/dL indicate increased risk for diabetes (prediabetes). Fasting plasma glucose results greater than or equal to 126 mg/dL meet the criteria for diagnosis of diabetes. In the absence of unequivocal hyperglycemia, results should be confirmed by repeat testing. In a patient with classic symptoms of hyperglycemia or hyperglycemic crisis, random plasma glucose results greater than or equal to 200 mg/dL meet the criteria for diagnosis of diabetes. Reference: Standards of Medical Care in Diabetes 2016, [place] Diabetes Association. Diabetes Care. 2016.39(Suppl 1). Performed By: #### 2 4323-8, 50188-2 ####[facility] LABIA [id number] [place] [address] [place] Potassium [Moles/Vol] 4.2 mmol/L Normal 3.7-5.1 [facility] Comment on above: Order Comment: Speci men Type: BLOOD SPECIMENOrdering Facility: [facility] Address: [address] [place] [address] Performed By: #### 2 4323-8, 25278-1 ####[facility] LABIA [id number] [place] [address] [place] Protein [Mass/Vol] 6.8 g/dL Normal 6.3-8.0 [facility] Comment on above: Order Comment: Speci men Type: BLOOD SPECIMENOrdering Facility: [facility] Address: [address] [place] [address] Performed By: #### 2 4323-8, 05479-9 ####[facility] LABCLIA [id number] [address] [address] [place] Sodium [Moles/Vol] 141 mmol/L Normal 136-144 [facility] Comment on above: Order Comment: Speci men Type: BLOOD SPECIMENOrdering Facility: [facility] Address: [address] [place] [address] Performed By: #### 2 4323-8, 20129-7 ####[facility] LABIA [id number] [place] [address] [place] Urea nitrogen [Mass/Vol] 14 mg/dL Normal 7-21 [facility] Comment on above: Order Comment: Speci men Type: BLOOD SPECIMENOrdering Facility: [facility] Address: [address] [place] [address] Performed By: #### 2 4323-8, 32843-3 ####[facility] LABIA [id number] [place] [address] [place] HbA1c (Bld)on 12-01-2023 Average glucose Estimated from glycated hemoglobin (Bld) [Mass/Vol] 123 mg/dL Normal [facility] Comment on above: Order Comment: Speci men Type: BLOOD SPECIMENOrdering Facility: [facility] Address: [address] [place] [address] Result Comment: eAG: (Estimated average glucose) is a calculated value from HgbA1c and is player services representative of the average blood glucose level in the last 2-3 month period. Performed By: #### 5 5454-3 ####[facility] [id number] [place] [address] [place] HbA1c (Bld) [Mass fraction] 5.9 % High 4.3-5.6 [facility] Comment on above: Order Comment: Speci men Type: BLOOD SPECIMENOrdering Facility: [facility] Address: [address] [place] [address] Result Comment: [place] Diabetes Association guidelines indicate that patients with HgbA1c in the range 5.7-6.4% are at increased risk for development of diabetes, and intervention by lifestyle modification may be beneficial. HgbA1c greater or equal to 6.5% is considered diagnostic of diabetes. Performed By: #### 5 5454-3 ####[facility] LABCLIA [id number] [place] [address] [place] Lipid 1996 panelon 4 Cholesterol [Mass/Vol] 111 mg/dL Normal <200 [facility] Comment on above: Order Comment: Hectori men Type: BLOOD SPECIMENOrdering Facility: [facility] Address: [address] [place] [address] Result Comment: <200 mg/dL, Desirable 200-239 mg/dL, Borderline high >239 mg/dL, High Performed By: #### 2 4323-8, 35562-4 ####[facility] LABCLIA [id number] [address] [place] Cholesterol in HDL [Mass/Vol] 55 mg/dL Normal >39 [facility] Comment on above: Order Comment: Yolande dodge Type: BLOOD SPECIMENOrdering Facility: [facility] Address: [address] [place] [address] Result Comment: 40-5 9 mg/dL, Acceptable >59 mg/dL, High: Negative risk factor for coronary heart disease <40 mg/dL, Low: Positive risk factor for coronary heart disease Performed By: #### 2 4323-8, 34927-3 ####[facility] LABCLIA [id number] [address] [place] Cholesterol in LDL [Mass/Vol] 27 mg/dL Normal <100 [facility] Comment on above: Order Comment: Yolande dodge Type: BLOOD SPECIMENOrdering Facility: [facility] Address: [address] [place] [address] Result Comment: <100 mg/dL, Optimal 100-129 mg/dL, Near optimal/above optimal 130-159 mg/dL, Borderline high 160-189 mg/dL, High >189 mg/dL, Very high Secondary prevention optimal LDL Cholesterol levels are recommended to be < 70 mg/dL Performed By: #### 2 4323-8, 17886-9 ####[facility] LABCLIA [id number] [place] [address] [place] Cholesterol in LDL/Cholesterol in HDL [Mass ratio] 0.49 {ratio} Normal <2.54 [facility] Comment on above: Order Comment: Speci men Type: BLOOD SPECIMENOrdering Facility: [facility] Address: [address] [place] [address] Result Comment: Refe rence: 1. National Cholesterol Education Program ATP III Guideline At-A-Glance Quick Desk Reference: National Heart, Lung, and Blood Mcleod. National Institutes of Health. 2001: NIH Publication No. 01-3305. 2. An International Atherosclerosis Society position paper: global recommendations for the management of dyslipidemia: executive summary, Atherosclerosis. 2014: 232(2):410-413. Performed By: #### 2 4323-8, 61188-4 ####[facility] LABIA [id number] [place] [address] [place] Cholesterol in VLDL [Mass/Vol] 29 mg/dL Normal <30 [facility] Comment on above: Order Comment: Yolande dodge Type: BLOOD SPECIMENOrdering Facility: [facility] Address: [address] [place] [address] Performed By: #### 2 4323-8, 17270-1 ####[facility] LABIA [id number] [place] [address] [place] Cholesterol non HDL [Mass/Vol] 56 mg/dL Normal <130 [facility] Comment on above: Order Comment: Yolande men Type: BLOOD SPECIMENOrdering Facility: [facility] Address: [address] [place] [address] Result Comment: <130 mg/dL, Optimal 130-159 mg/dL, Near optimal/above optimal 160-189 mg/dL, Borderline high 190-219 mg/dL, High >219 mg/dL, Very high Secondary prevention optimal non HDL Cholesterol levels are recommended to be <100 mg/dL Performed By: #### 2 4323-8, 88840-0 ####[facility] LABCLIA [id number] [place] [address] [place] Cholesterol.total/Cho lesterol in HDL [Mass ratio] 2.02 {ratio} Normal <5.10 [facility] Comment on above: Order Comment: Speci men Type: BLOOD SPECIMENOrdering Facility: [facility] Address: [address] [place] [address] Performed By: #### 2 4323-8, 54955-8 ####[facility] LABCLIA [id number] [address] OF [facility] FASTING TIME 12 hrs Normal [facility] Comment on above: Order Comment: Speci men Type: BLOOD SPECIMENOrdering Facility: [facility] Address: [address] [place] [address] Performed By: #### 2 4323-8, 92064-8 ####[facility] LABCLIA [id number] [place] [address] [place] Triglyceride [Mass/Vol] 145 mg/dL Normal <150 [facility] Comment on above: Order Comment: Speci men Type: BLOOD SPECIMENOrdering Facility: [facility] Address: [address] [place] [address] Result Comment: <150 mg/dL, Normal 150-199 mg/dL, Borderline high 200-499 mg/dL, High >499 mg/dL, Very high Performed By: #### 2 4323-8, 28034-8 ####[facility] LABCLIA [id number] [place] [address] [place] [id number] 11-13-2023 [id number] HNO ID: [id number] Author: NAILA NAVARRO RN Service: ? Author Type: Registered Nurse Type: [id number] Filed: 11/13/2023 09:41 Note Text: The patient received a copy of EGD discharge instructions that contain information for how to contact the physician who performed the procedure and when to seek medical care. Normal [facility] EGD Study observation Ailin beard 11-13-2023 Jelani [facility] Gastrointestinal Endoscopy Patient Name: Angelique Wynne Procedure Date: 11/13/2023 9:13 AM Date of : 1970 Admit Type: Outpatient Age: 53 Gender: Female Note Status: Finalized Procedure: Upper GI endoscopy Indications: Preoperative assessment for bariatric surgery to treat morbid obesity Providers: Higinio Campuzano MD Patient Profile: This is a 53 year old female. Refer to note in patient chart for documentation of history and physical. Referring Physician: Broderick Ansari MD (Referring MD) Medicines: Fentanyl 100 micrograms IV, Midazolam 4 mg IV, Diphenhydramine 50 mg IV, Benzocaine spray Complications: No immediate complications. Estimated blood loss: Minimal. Requesting Provider: Procedure: Pre-Anesthesia Assessment: - Prior to the procedure, a History and Physical was performed, and patient medications and allergies were reviewed. The patient's tolerance of previous anesthesia was also reviewed. The risks and benefits of the procedure and the sedation options and risks were discussed with the patient. All questions were answered, and informed consent was obtained. Prior Anticoagulants: The patient has taken no anticoagulant or antiplatelet agents. ASA Grade Assessment: III - A patient with severe systemic disease. After reviewing the risks and benefits, the patient was deemed in satisfactory condition to undergo the procedure. After obtaining informed consent, the endoscope was passed under direct vision. Throughout the procedure, the patient's blood pressure, pulse, and oxygen saturations were monitored continuously. The Endoscope was introduced through the mouth, and advanced to the second part of duodenum. The upper GI endoscopy was accomplished without difficulty. The patient tolerated the procedure well. Moderate Sedation: The administration of moderate sedation was initiated at 09:21 AM. Moderate (conscious) sedation was personally administered by the endoscopist. The following parameters were monitored: oxygen saturation, heart rate, blood pressure, respiratory rate, EKG, adequacy of pulmonary ventilation, and response to care. Total physician intraservice time was 7 minutes. Findings: The Z-line was variable and was found 34 cm from the incisors. Biopsies were taken with a cold forceps for histology. The entire examined stomach was normal. Biopsies were taken with a cold forceps for Helicobacter pylori testing. The examined duodenum was normal. Biopsies for histology were taken with a cold forceps for evaluation of celiac disease. Impression: - No specimens collected. Recommendation: - Patient has a contact number available for emergencies. The signs and symptoms of potential delayed complications were discussed with the patient. Return to normal activities tomorrow. Written discharge instructions were provided to the patient. - Resume previous diet. - Continue present medications. - Await pathology results. - Repeat upper endoscopy PRN for surveillance. - Return to referring physician at appointment to be scheduled. Procedure Code(s): --- Professional --- 83478, Esophagogastroduodenos copy, flexible, transoral; with biopsy, single or multiple Diagnosis Code(s): --- Professional --- Z01.818, Encounter for other preprocedural examination E66.01, Morbid (severe) obesity due to excess calories CPT copyright 2020 [employer]. All rights reserved. The codes documented in this report are preliminary and upon semiconductor packages leak tester review may be revised to meet current compliance requirements. Attending Participation: I personally performed the entire procedure. Scope In: 9:24:15 AM Scope Out: 9:28:13 AM MD Higinio Bailey MD 11/13/2023 9:34:13 AM This report has been signed electronically by Iván (more content not included)... [employer] Radiology Study observation (narrative) [facility] HISTORY PHYSICALon HISTORY PHYSICAL HNO ID: [id number] Author: HIGINIO CAMPUZANO MD Service: General Surgery Author Type: Physician Type: H&P Filed: 11/13/2023 08:43 Note Text: PATIENT NAME: Angelique Wynne REASON FOR CONSULT: Morbid Obesity REQUESTING PHYSICIAN: Self DATE of SERVICE: 10/20/2023 TIME of SERVICE: 2:10 PM PCP: Luis Staley MD CC: Morbid Obesity HPI: Ms. Wynne is a 53 year old female who is referred for evaluation for Bariatric surgery. Patient does not have any specific complaints today. Anterior proctosigmoidectomy, low colorectal anastomosis. (2007) Patient presents to clinic today for work up for Bariatric surgery. She has been considering surgery for some time as she is set to retire from her job soon. She has been in [facility] for her DM for few years and hopes bariatric surgery will help her get off the Trulicity. Patient has been obese since young adulthood. She has tried multiple diets, OTC medications to with only 10 pound weight loss each time over he span of 6-8 months. Her goal weight is 120 pounds. Currently on a regular diet. Patient's obesity related chronic medical conditions include: Diabetes: Yes Hypertension: Yes Hyperlipedemia:Yes OA:No JANA: No DVT/PE:No Gastroesophageal reflux: Yes EGD: Yes Patient is inclined towards: bypass Patient's goal weight is 120 pounds. 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 Other and unspecified hyperlipidemia Personal history of malignant neoplasm of rectum, rectosigmoid junction, and anus PAST SURGICAL HISTORY: PAST SURGICAL HISTORY PAST SURGICAL HISTORY Procedure Laterality Date COLECTOMY PARTIAL W/ANASTOMOSIS low anterior resection 31ceea anastamosis COLON SURGERY HX COLONOSCOPY FLX DX W/COLLJ SPEC WHEN PFRMD clean anastamosis COLONOSCOPY FLX DX W/COLLJ SPEC WHEN PFRMD 10/23/09, 11/05/11 clean anastamosis - recommend 3 year follow up COLONOSCOPY FLX DX W/COLLJ SPEC WHEN PFRMD 01/03/15 clean anastamosis - recommend 5 year follow up COLONOSCOPY FLX DX W/COLLJ SPEC WHEN PFRMD 01/06/2020 Colonoscopy COLONOSCOPY W/BIOPSY SINGLE/MULTIPLE 09/02/07 EGD TRANSORAL BIOPSY SINGLE/MULTIPLE 09/02/07 EGD TRANSORAL BIOPSY SINGLE/MULTIPLE INSJ TUNNELED CTR VAD W/SUBQ PORT AGE 5 YR/> 11/20/2007 Left Subclavian REMOVED PAST SURGICAL HISTORY OF 2005 needle biopsy of the left breast SOCIAL HISTORY: SOCIAL HISTORY Social History Tobacco Use Smoking status: Never Smokeless tobacco: Never Vaping Use Vaping Use: Never used Substance Use Topics Alcohol use: Yes Comment: Rarely Drug use: No ALLERGIES: ALLERGIES ALLERGIES Allergen Reactions Oxaliplatin Anaphylaxis Went to [facility] ER 02/08/08 FAMILY HISTORY: FAMILY HISTORY FAMILY HISTORY Adopted: Yes Problem Relation Age of Onset Diabetes Father Heart Father 62 from [place] Hypertension Father Heart Sister cancer--possible heart attack with chemo other (Crohn's Disease) Daughter MEDICATIONS: Prior to Admission Medications: CURRENT MEDICATIONS lisinopril (ZESTRIL) 20 mg tablet Take 1 tablet by mouth once daily. Lancets lancets Use with blood glucose test once daily. Insulin Dep? Yes blood sugar diagnostic test strip Use with blood glucose test once daily, Insulin Dep? No dulaglutide (TRULICITY) 4.5 mg/0.5 mL pen injector Inject 4.5 mg subcutaneously one time a week. atorvastatin (LIPITOR) 40 mg tablet Take 1 tablet by mouth daily at bedtime. For cholesterol. Blood-Glucose Meter Test One time a day. Blood Glucose Control, Normal soln Use as directed No current facility-administered medications for this visit. FAMILY HISTORY: FAMILY HISTORY FAMILY HISTORY Adopted: Yes Problem Relation Age of Onset Diabetes Father Heart Father 62 from [place] Hypertension Father Heart Sister cancer--possible heart attack with chemo other (Crohn's Disease) Daughter Review of Systems: PAIN ASSESSMENT: Negative for pain, history of chronic pain, or current treatment for a chronic pain condition. GENERAL: No weight loss, malaise or fevers. RESPIRATORY: Negative for cough, hemoptysis, wheezing, COPD, dyspnea or shortness of breath CARDIOVASCULAR: Negative for chest pain, leg swelling, hypertension, CHF or palpitations The remainder of the review of systems is negative. PHYSICAL EXAMINATION: BP 149/74 Pulse 76 Temp 36.7 ?C (98 ?F) (Temporal) Ht 149.9 cm (4' 11.02 ) Wt 81.6 kg (180 lb) LMP 09/19/2017 SpO2 95% BMI 36.34 kg/m? General appearance: Morbidly obese Skin: Skin color, texture, turgor normal, no suspicious rashes or lesions He (more content not included)... Normal [facility] NURSING PROGon 11-13-2023 NURSING PROG HNO ID: [id number] Author: NAILA NAVARRO, RN Service: ? Author Type: Registered Nurse Type: Nursing Progress Note Filed: 11/13/2023 09:44 Note Text: Pt. arrived to phase 2 resting on left side. SR up x 2, call light in reach. Naila Navarro RN Normal [facility] SURGICAL PATHOLOGYon 024 CASE REPORT Normal [facility] Comment on above: Order Comment: Speci men Type: TISSUE SPECIMEN [facility] Address: [address] [place] [address] Result Comment: Surg ical Pathology Report Case: [id number] Authorizing Provider: Higinio Campuzano MD Collected: 11/13/2023 09:24 AM Ordering Location: Ambulatory Surgery Received: 11/13/2023 03:33 PM Pathologist: Jose Alberto Martinez MD Specimens: A) - Small Bowel, Duodenum, Biopsy B) - Stomach, Antrum, Biopsy, Antral bx for H/H C) - Esophagus, Distal, Biopsy D) - Esophagus, Mid, Biopsy Performed By: #### S #### [facility] LAB CLIA [id number] [address] [place] [address] [place] CLINICAL HISTORY Normal [facility] Comment on above: Order Comment: Speci men Type: TISSUE SPECIMEN [facility] Address: [address] [place] [address] Performed By: #### S #### [facility] LAB CLIA [id number] [address] [place] [address] OF [facility] FINAL DIAGNOSIS Normal [facility] Comment on above: Order Comment: Speci men Type: TISSUE SPECIMEN [facility]: [facility] Address: [address] [place] [address] Result Comment: A. S mall bowel, duodenum, biopsy: - Duodenal mucosa within normal limits. B. Stomach, antrum, biopsy: - Corpus mucosa within normal limits. - No morphologic evidence of Helicobacter. C. Esophagus, distal, biopsy: - Squamocolumnar junctional mucosa (cardia and corpus - type) with mild chronic inflammation. - No intestinal metaplasia identified. D. Esophagus, mid, biopsy: - Squamous mucosa within normal limits. PB/dkm 11/17/2023 Performed By: #### S #### [facility] CLIA [id number] [address] [place] [address] [place] FINAL PERFORMING LAB [facility] Comment on above: Order Comment: Speci men Type: TISSUE SPECIMEN [facility] Facility: [facility] Address: [address] [place] [address] Result Comment: Diag nostic interpretation performed at [facility], [address] [place] [address] CLIA# [id number] [employer] Intern: Robbin Asher M.D. Performed By: #### S #### [facility] CLIA [id number] [address] [place] [address] [place] GROSS DESCRIPTION Normal [facility] Comment on above: Order Comment: Speci men Type: TISSUE SPECIMEN [facility]ing Facility: [facility] Address: [address] [place] [address] Result Comment: A. S mall Bowel, Duodenum, Biopsy Received in formalin is one piece of chacon, soft tissue measuring 0.5 x 0.3 x 0.2 cm. Totally submitted in one cassette. B. Stomach, Antrum, Biopsy Received in formalin is one piece of chacon, soft tissue measuring 0.4 x 0.2 x 0.2 cm. Totally submitted in one cassette. C. Esophagus, Distal, Biopsy Received in formalin are two pieces of chacon-white to brown, soft tissue aggregating to 1.0 x 0.3 x 0.2 cm. Totally submitted in one cassette. D. Esophagus, Mid, Biopsy Received in formalin is one piece of chacon-white, soft tissue measuring 0.2 x 0.2 x 0.2 cm. Totally submitted in one cassette. Gross examination performed at [facility], [address] [place] [address] KK November 13, 2023 10:51 PM Performed By: #### S #### [facility] CLIA [id number] [address] [place] [address] [place] Upper GI endoscopyon 024 Upper GI endoscopy [facility] Gastrointestinal Endoscopy Patient Name: Angelique Quaker Procedure Date: 11/13/2023 9:13 AM Date of : 1970 Admit Type: Outpatient Age: 53 Gender: Female Note Status: Finalized Procedure: Upper GI endoscopy Indications: Preoperative assessment for bariatric surgery to treat morbid obesity Providers: Higinio Campuzano MD Patient Profile: This is a 53 year old female. Refer to note in patient chart for documentation of history and physical. Referring Physician: Broderick Ansari MD (Referring MD) Medicines: Fentanyl 100 micrograms IV, Midazolam 4 mg IV, Diphenhydramine 50 mg IV, Benzocaine spray Complications: No immediate complications. Estimated blood loss: Minimal. Requesting Provider: Procedure: Pre-Anesthesia Assessment: - Prior to the procedure, a History and Physical was performed, and patient medications and allergies were reviewed. The patient's tolerance of previous anesthesia was also reviewed. The risks and benefits of the procedure and the sedation options and risks were discussed with the patient. All questions were answered, and informed consent was obtained. Prior Anticoagulants: The patient has taken no anticoagulant or antiplatelet agents. ASA Grade Assessment: III - A patient with severe systemic disease. After reviewing the risks and benefits, the patient was deemed in satisfactory condition to undergo the procedure. After obtaining informed consent, the endoscope was passed under direct vision. Throughout the procedure, the patient's blood pressure, pulse, and oxygen saturations were monitored continuously. The Endoscope was introduced through the mouth, and advanced to the second part of duodenum. The upper GI endoscopy was accomplished without difficulty. The patient tolerated the procedure well. Moderate Sedation: The administration of moderate sedation was initiated at 09:21 AM. Moderate (conscious) sedation was personally administered by the endoscopist. The following parameters were monitored: oxygen saturation, heart rate, blood pressure, respiratory rate, EKG, adequacy of pulmonary ventilation, and response to care. Total physician intraservice time was 7 minutes. Findings: The Z-line was variable and was found 34 cm from the incisors. Biopsies were taken with a cold forceps for histology. The entire examined stomach was normal. Biopsies were taken with a cold forceps for Helicobacter pylori testing. The examined duodenum was normal. Biopsies for histology were taken with a cold forceps for evaluation of celiac disease. Impression: - No specimens collected. Recommendation: - Patient has a contact number available for emergencies. The signs and symptoms of potential delayed complications were discussed with the patient. Return to normal activities tomorrow. Written discharge instructions were provided to the patient. - Resume previous diet. - Continue present medications. - Await pathology results. - Repeat upper endoscopy PRN for surveillance. - Return to referring physician at appointment to be scheduled. Procedure Code(s): --- Professional --- 72903, Esophagogastroduodenos copy, flexible, transoral; with biopsy, single or multiple Diagnosis Code(s): --- Professional --- Z01.818, Encounter for other preprocedural examination E66.01, Morbid (severe) obesity due to excess calories CPT copyright 2020 [employer]. All rights reserved. The codes documented in this report are preliminary and upon semiconductor packages leak tester review may be revised to meet current compliance requirements. Attending Participation: I personally performed the entire procedure. Scope In: 9:24:15 AM Scope Out: 9:28:13 AM MD Higinio Bailey MD 11/13/2023 9:34:13 AM This report has been signed electronically by Higinio Campuzano MD Number of Addenda: 0 Note Initiated On: 11/13/2023 9:13 AM Estimated Blood Loss: Estimated blood loss was minimal. Estimated blood loss was minimal. Normal [facility] CNOVon 10-21-2023 CNOV Office Visit ([id number] ) ANGELIQUE WYNNE ([id number]) 1970 F Date Time Provider Department 10/21/23 8:30 AM BRODERICK ANSARI [id number] During your visit today, we recorded the following information about you: Temperature Pulse Blood pressure Weight 98 degrees 76/minute 149/74 81.6 kg Height 1.499 m Alanis Avitia RN 10/21/2023 9:[address] Ansari has requested a pre operative upper endoscopy (EGD) for your bariatric surgery. This procedure is to examine your stomach and small intestines. To schedule an Upper Endoscopy (EGD): Call [phone] -Select Option to schedule an appointment -Request to schedule an upper endoscopy -There are multiple [facility] locations to choose from and the manufacturing scheduler will assist with appointment for procedure. What is upper endoscopy? Upper endoscopy is a routine, outpatient procedure in which the inside of the upper digestive system is examined. The procedure is commonly used to help identify the causes of: Abdominal or chest pain Nausea and vomiting Heartburn Bleeding Swallowing disorders Endoscopy can also help identify inflammation, ulcers and tumors. Upper endoscopy is more accurate than x-rays for detecting abnormal growths and for examining the inside of the upper digestive system. The improved accuracy is especially important if you have had [id number]-dgwsn surgery in the past. How is an upper endoscopy done? During the procedure, a physician uses an endoscope (a long, thin, flexible instrument about 1/2 inch in diameter) to examine the inside of the upper digestive system. Abnormalities can be treated through the endoscope. Polyps (usually benign growths) can be identified and removed, and tissue samples (biopsies) can be taken for analysis. Procedures such as stretching narrowed areas, removing swallowed objects or treating bleeding from the upper digestive system can also be performed as part of upper endoscopy. What do I need to do before the procedure? Special conditions Tell your physician if you are , have a lung or heart condition, or if you are allergic to any medications. If you are taking blood-thinning medications -- such as Coumadin? or Plavix? -- these medications may have to be stopped for a period of time before the endoscopy. Please discuss this with your physician prior to the procedure. If you have diabetes and use insulin, you must adjust the dosage of insulin the day of the test. Your primary physician will help you with this adjustment. Bring your diabetes medication with you so you can take it after the procedure. Eating and drinking An endoscopy requires that you have an empty stomach before the procedure. Do not eat any solid food for 8 hours before the procedure. You may drink clear liquids up until 4 hours before the procedure. Clear liquids include clear broth, hard candy, plain Jell-O?, black coffee, black tea, apple juice, jarrett saul, 7UP?, sam, John-Aid?, Gatorade?, Hi-C? and popsicles. Transportation You will need to bring a responsible adult with you to accompany you home after the procedure. You should not drive or operate machinery for at least 8 hours after the procedure. The sedation given during the procedure causes drowsiness, dizziness and impairs your judgment, making it unsafe for you to drive or operate machinery. On the day of the procedure A physician will explain the procedure in detail, including possible complications and side effects. The physician will also answer any questions you may have. What happens during the procedure? The procedure is performed by an experienced endoscopy physician. You are asked to wear a hospital gown and remove your eyeglasses and dentures. A local anesthetic (pain-relieving medication) may be applied at the back of your throat. You are given a pain reliever and a sedative intravenously (in your vein). You will feel relaxed and drowsy. A mouthpiece is placed in your mouth. It does not interfere with your breathing. You will lie on your left side during the procedure. The physician inserts an endoscope into your mouth, through your esophagus (the food pipe leading from your mouth into your stomach) and into your stomach. The endoscope does not interfere with your breathing. The procedure lasts from 15 to 20 minutes. What happens after the procedure? You will stay in a recovery room for about 30 minutes for observation. You may feel a temporary soreness in your throat. Lozenges may help. The physician who performs the endoscopy will send the test results to your primary or referring physician. Your physician will discuss the results with you after the procedure. If the results indicate that prompt medical attention is needed, the necessary arrangements will be made and your referring physician will be notified. (more content not included)... Normal [facility] 25(OH)D3 [facility] 2023 25-hydroxyvitamin D3 [Mass/Vol] 32.9 ng/mL Normal 31.0-80.0 [facility] Comment on above: Order Comment: Speci men Type: BLOOD SPECIMENOrdering Facility: [facility] Address: [address] [place] [address] Result Comment: Clas sification of 25 [place] Vitamin D status: Deficiency/Insufficiency: < or = 30 ng/ml. Sufficiency/Optimal Levels: 31-80 ng/mL Toxicity: > 100 ng/mL. Test performed by chemiluminescent immunoassay. Performed By: #### 1 989-3 ####[facility] LABCLIA [id number] [facility] [place] [address] [place] CBC W Auto Differential pane l (Bld)on 10-17-2023 Basophils (Bld) [#/Vol] 0.07 10*3/uL Normal <0.11 [facility] Comment on above: Order Comment: Speci men Type: BLOOD SPECIMENOrdering Facility: [facility] Address: [address] [place] [address] Performed By: #### 5 7021-8 ####[facility] CENTERLIA [id number] [place] [address] [place] Basophils/100 WBC (Bld) 1.0 % Normal [facility] Comment on above: Order Comment: Speci men Type: BLOOD SPECIMENOrdering Facility: [facility] Address: [address] [place] [address] Performed By: #### 5 7021-8 ####[facility] [id number] [place] [address] [place] Differential cell count method Nom (Bld) Auto Normal [facility] Comment on above: Order Comment: Speci men Type: BLOOD SPECIMENOrdering Facility: [facility] Address: [address] [place] [address] Performed By: #### 5 7021-8 ####[facility]ENTERA [id number] [place] [address] [place] Eosinophils (Bld) [#/Vol] 0.17 10*3/uL Normal <0.46 [facility] Comment on above: Order Comment: Speci men Type: BLOOD SPECIMENOrdering Facility: [facility] Address: [address] [place] [address] Performed By: #### 5 7021-8 ####[facility] CENTERLIA [id number] [place] [address] [place] Eosinophils/100 WBC (Bld) 2.3 % Normal [facility] Comment on above: Order Comment: Speci men Type: BLOOD SPECIMENOrdering Facility: [facility] Address: [address] [place] [address] Performed By: #### 5 7021-8 ####[facility]ILLSNCLIA [id number] [place] [address] [place] Erythrocyte distribution width (RBC) [Ratio] 12.4 % Normal 11.5-15.0 [facility] Comment on above: Order Comment: Speci men Type: BLOOD SPECIMENOrdering Facility: [facility] Address: [address] [place] [address] Performed By: #### 5 7021-8 ####[facility]YRHILLSNCA [id number] [place] [address] [place] Hematocrit (Bld) [Volume fraction] 43.6 % Normal 36.0-46.0 [facility] Comment on above: Order Comment: Speci men Type: BLOOD SPECIMENOrdering Facility: [facility] Address: [address] [place] [address] Performed By: #### 5 7021-8 ####[facility] CENTERLIA [id number] [place] [address] [place] Hemoglobin (Bld) [Mass/Vol] 14.5 g/dL Normal 11.5-15.5 [facility] Comment on above: Order Comment: Speci men Type: BLOOD SPECIMENOrdering Facility: [facility] Address: [address] [place] [address] Performed By: #### 5 7021-8 ####[facility]SNCLIA [id number] [place] [address] [place] Immature granulocytes (Bld) [#/Vol] 10*3/uL Normal <0.10 [facility] Comment on above: Order Comment: Speci men Type: BLOOD SPECIMENOrdering Facility: [facility] Address: [address] [place] [address] Performed By: #### 5 7021-8 ####[facility] JUANRAUL [id number] [place] [address] [place] Immature granulocytes/100 WBC (Bld) 0.3 % Normal [facility] Comment on above: Order Comment: Speci men Type: BLOOD SPECIMENOrdering Facility: [facility] Address: [address] [place] [address] Performed By: #### 5 7021-8 ####[facility]SNCBRIGHAM [facility] [id number] [place] [address] [place] Lymphocytes (Bld) [#/Vol] 2.19 10*3/uL Normal 1.00-4.00 [facility] Comment on above: Order Comment: Speci men Type: BLOOD SPECIMENOrdering Facility: [facility] Address: [address] [place] [address] Performed By: #### 5 7021-8 ####[facility] [id number] [place] [address] [place] Lymphocytes/100 WBC (Bld) 29.9 % Normal [facility] Comment on above: Order Comment: Speci men Type: BLOOD SPECIMENOrdering Facility: [facility] Address: [address] [place] [address] Performed By: #### 5 7021-8 ####[facility]SNCL[facility] [id number] [place] [address] [place] MCH (RBC) [Entitic mass] 28.2 pg Normal 26.0-34.0 [facility] Comment on above: Order Comment: Speci men Type: BLOOD SPECIMENOrdering Facility: [facility] Address: [address] [place] [address] Performed By: #### 5 7021-8 ####[facility]CL[facility] [id number] [place] [address] [place] MCHC (RBC) [Mass/Vol] 33.3 g/dL Normal 30.5-36.0 [facility] Comment on above: Order Comment: Speci men Type: BLOOD SPECIMENOrdering Facility: [facility] Address: [address] [place] [address] Performed By: #### 5 7021-8 ####[facility] [id number] [place] [address] [place] MCV (RBC) [Entitic vol] 84.7 fL Normal 80.0-100.0 [facility] Comment on above: Order Comment: Speci men Type: BLOOD SPECIMENOrdering Facility: [facility] Address: [address] [place] [address] Performed By: #### 5 7021-8 ####[facility] [id number] [place] [address] [place] Monocytes (Bld) [#/Vol] 0.38 10*3/uL Normal <0.87 [facility] Comment on above: Order Comment: Speci men Type: BLOOD SPECIMENOrdering Facility: [facility] Address: [address] [place] [address] Performed By: #### 5 7021-8 ####[facility] [id number] [place] [address] [place] Monocytes/100 WBC (Bld) 5.2 % Normal [facility] Comment on above: Order Comment: Speci men Type: BLOOD SPECIMENOrdering Facility: [facility] Address: [address] [place] [address] Performed By: #### 5 7021-8 ####[facility]SNCLIA [id number] [place] [address] [place] Neutrophils (Bld) [#/Vol] 4.50 10*3/uL Normal 1.45-7.50 [facility] Comment on above: Order Comment: Speci men Type: BLOOD SPECIMENOrdering Facility: [facility] Address: [address] [place] [address] Performed By: #### 5 7021-8 ####[facility] CENTERLIA [id number] [place] [address] [place] Neutrophils/100 WBC (Bld) 61.3 % Normal [facility] Comment on above: Order Comment: Speci men Type: BLOOD SPECIMENOrdering Facility: [facility] Address: [address] [place] [address] Performed By: #### 5 7021-8 ####[facility]SNCBRIGH[facility] [id number] [place] [address] [place] Nucleated RBC (Bld) [#/Vol] 10*3/uL Normal <0.01 [facility] Comment on above: Order Comment: Speci men Type: BLOOD SPECIMENOrdering Facility: [facility] Address: [address] [place] [address] Performed By: #### 5 7021-8 ####[facility] [id number] [place] [address] [place] Nucleated RBC/100 WBC (Bld) [Ratio] 0.0 /100 WBC Normal [facility] Comment on above: Order Comment: Speci men Type: BLOOD SPECIMENOrdering Facility: [facility] Address: [address] [place] [address] Performed By: #### 5 7021-8 ####[facility]ILLSNCLI [id number] [place] [address] [place] Platelet mean volume (Bld) [Entitic vol] 10.3 fL Normal 9.0-12.7 [facility] Comment on above: Order Comment: Speci men Type: BLOOD SPECIMENOrdering Facility: [facility] Address: [address] [place] [address] Performed By: #### 5 7021-8 ####[facility] TRAVISNCJOSEA [id number] [place] [address] [place] Platelets (Bld) [#/Vol] 303 10*3/uL Normal 150-400 [facility] Comment on above: Order Comment: Speci men Type: BLOOD SPECIMENOrdering Facility: [facility] Address: [address] [place] [address] Performed By: #### 5 7021-8 ####[facility] JUANDarianNCLIA [id number] [place] [address] [place] RBC (Bld) [#/Vol] 5.15 10*6/uL Normal 3.90-5.20 [facility] Comment on above: Order Comment: Speci men Type: BLOOD SPECIMENOrdering Facility: [facility] Address: [address] [place] [address] Performed By: #### 5 7021-8 ####[facility] [id number] [place] [address] [place] WBC (Bld) [#/Vol] 7.33 10*3/uL Normal 3.70-11.00 [facility] Comment on above: Order Comment: Speci men Type: BLOOD SPECIMENOrdering Facility: [facility] Address: [address] [place] [address] Performed By: #### 5 7021-8 ####[facility]SNCL[facility] [id number] [place] [address] [place] CNNURSEon 10-17-2023 [facility] Nurse Visit (FAMPWS) ANGELIQUE WYNNE ([id number]) 1970 F Date Time Provider Department 10/17/23 11:30 AM AL NURSE PIPE During your visit today, we recorded the following information about you: Earline Zabala LPN 10/17/2023 11:30 AM Signed Patient presents for EKG per Rachel Mcmillan CNP. Denies any problems at this time. Tolerated procedure well. Earline Zabala LPN Referring Provider: RACHEL MCMILLAN [[id number]] Allergies As of Date: 10/17/2023 Noted Allergy Reaction OXALIPLATIN 02/22/2008 10 - Anaphylaxis Comments: Went to [facility] ER 02/08/08 Date Reviewed: 10/07/2023 Reviewed by: Rachel Escalante PSYD - Fully Assessed Reason for Visit: EKG [793] Visit Diagnosis:Class 2 severe obesity with serious comorbidity and body mass index (BMI) of 35.0 to 35.9 in adult, unspecified obesity type (HCC) [E66.01, Z68.35] Order(s):ECG COMPLETE [ECG01] Order #: [id number] Prescriptions as of 10/17/2023 - lisinopril (ZESTRIL) 20 mg tablet Take 1 tablet by mouth once daily. - Lancets lancets Use with blood glucose test once daily. Insulin Dep? Yes - blood sugar diagnostic test strip Use with blood glucose test once daily, Insulin Dep? No - dulaglutide (TRULICITY) 4.5 mg/0.5 mL pen injector Inject 4.5 mg subcutaneously one time a week. - atorvastatin (LIPITOR) 40 mg tablet Take 1 tablet by mouth daily at bedtime. For cholesterol. - Blood-Glucose Meter Test One time a day. 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] 03/28/2008 12/13/2022 Personal history of malignant neoplasm of rectu*08/15/2008 12/18/2020 Other and unspecified ovarian cyst [N83.209] 09/29/2008 12/13/2022 Unspecified vitamin D deficiency [E55.9] 07/09/2010 12/18/2020 Dysmetabolic syndrome [E88.810] 10/03/2010 11/03/2013 Herpes simplex [B00.9] 10/03/2010 Obesity [E66.9] 11/05/2010 12/13/2022 Depression [F32.A] 12/21/2010 12/13/2022 Diabetes mellitus without complication (HCC) [E*09/06/2013 Vitamin D deficiency [E55.9] 09/06/2013 Personal history of rectal cancer [Z85.048] 06/28/2014 Obesity, Class II, BMI 35-39.9 [E66.9] 12/13/2022 Encounter Status:Closed by EARLINE ZABALA on 10/17/23 Normal [facility] Comprehensive metabolic 2000 panelon 10-17-2023 Albumin [Mass/Vol] 4.4 g/dL Normal 3.9-4.9 [facility] Comment on above: Order Comment: Speci men Type: BLOOD SPECIMEN [facility] Address: [address] [place] [address] Performed By: #### 2 4323-8 #### [facility] CLIA [id number] [address] [place] [address] [place] ALP [Catalytic activity/Vol] 80 U/L Normal 34-123 [facility] Comment on above: Order Comment: Speci men Type: BLOOD SPECIMEN [facility] Address: [address] [place] [address] Performed By: #### 2 4323-8 #### [facility] CLIA [id number] [address] [place] [address] [place] ALT [Catalytic activity/Vol] 18 U/L Normal 7-38 [facility] Comment on above: Order Comment: Speci men Type: BLOOD SPECIMEN [facility] Address: [address] [place] [address] Performed By: #### 2 4323-8 #### [facility] CLIA [id number] [address] [place] [address] [place] Anion gap [Moles/Vol] 4 mmol/L Low 9-18 [facility] Comment on above: Order Comment: Speci men Type: BLOOD SPECIMEN [facility] Address: [address] [place] [address] Performed By: #### 2 4323-8 #### [facility] CLIA [id number] [address] [place] [address] [place] AST [Catalytic activity/Vol] 15 U/L Normal 13-35 [facility] Comment on above: Order Comment: Speci men Type: BLOOD SPECIMEN [facility] Address: [address] [place] [address] Performed By: #### 2 4323-8 #### [facility] CLIA [id number] [address] [place] [address] [place] Bilirubin [Mass/Vol] 0.6 mg/dL Normal 0.2-1.3 [facility] Comment on above: Order Comment: Speci men Type: BLOOD SPECIMEN [facility] Address: [address] [place] [address] Performed By: #### 2 4323-8 #### [facility] CLIA [id number] [address] [place] [address] [place] Calcium [Mass/Vol] 10.1 mg/dL Normal 8.5-10.2 [facility] Comment on above: Order Comment: Speci men Type: BLOOD SPECIMEN [facility] Address: [address] [place] [address] Performed By: #### 2 4323-8 #### [facility] CLIA [id number] [address] [place] [address] [place] Chloride [Moles/Vol] 103 mmol/L Normal 97-105 [facility] Comment on above: Order Comment: Speci men Type: BLOOD SPECIMEN [facility] Address: [address] [place] [address] Performed By: #### 2 4323-8 #### [facility] CLIA [id number] [address] [place] [address] [place] CO2 [Moles/Vol] 32 mmol/L High 22-30 [facility] Comment on above: Order Comment: Speci men Type: BLOOD SPECIMEN [facility] Address: [address] [place] [address] Performed By: #### 2 4323-8 #### [facility] CLIA [id number] [address] [place] [address] [place] Creatinine [Mass/Vol] 0.86 mg/dL Normal 0.58-0.96 [facility] Comment on above: Order Comment: Speci men Type: BLOOD SPECIMEN [facility] Address: [address] [place] [address] Performed By: #### 2 4323-8 #### [facility] CLIA [id number] [address] [place] [address] [place] Creatinine and Glomerular filtration rate.predicted panel (S/P/Bld) 80 mL/min/1.73m??? Normal >=60 [facility] Comment on above: Order Comment: Yolande dodge Type: BLOOD SPECIMEN [facility] Address: [address] [place] [address] Result Comment: Patricia mated Glomerular Filtration Rate (eGFR) is calculated using the 2020 CKD-EPI creatinine equation. This equation utilizes serum creatinine, sex, and age as parameters. The creatinine assay has traceable calibration to isotope dilution-mass spectrometry. Refer to KDIGO guidelines for clinical interpretation. In patients with unstable renal function, e.g. those with acute kidney injury, the eGFR may not accurately reflect actual GFR. Performed By: #### 2 4323-8 #### [facility] [id number] [address] [place] [address] [place] Glucose [Mass/Vol] 152 mg/dL High 74-99 [facility] Comment on above: Order Comment: Yolande dodge Type: BLOOD SPECIMEN [facility] Address: [address] [place] [address] Result Comment: The [place] [employer] (ADA) provides guidance for cutoff values for fasting glucose and random glucose. The ADA defines fasting as no caloric intake for at least 8 hours. Fasting plasma glucose results between 100 to 125 mg/dL indicate increased risk for diabetes (prediabetes). Fasting plasma glucose results greater than or equal to 126 mg/dL meet the criteria for diagnosis of diabetes. In the absence of unequivocal hyperglycemia, results should be confirmed by repeat testing. In a patient with classic symptoms of hyperglycemia or hyperglycemic crisis, random plasma glucose results greater than or equal to 200 mg/dL meet the criteria for diagnosis of diabetes. Reference: Standards of Medical Care in Diabetes 2016, [place] [employer] Association. Diabetes Care. 2016.39(Suppl 1). Performed By: #### 2 4323-8 #### [facility] [id number] [address] [place] [address] [place] Potassium [Moles/Vol] 4.4 mmol/L Normal 3.7-5.1 [facility] Comment on above: Order Comment: Yolande dodge Type: BLOOD SPECIMEN [facility] Address: [address] [place] [address] Performed By: #### 2 4323-8 #### [facility] CLIA [id number] [address] [place] [address] [place] Protein [Mass/Vol] 7.5 g/dL Normal 6.3-8.0 [facility] Comment on above: Order Comment: Speci men Type: BLOOD SPECIMEN [facility] Address: [address] [place] [id number] Performed By: #### 2 4323-8 #### [facility] CLIA [id number] [address] [place] [address] [place] Sodium [Moles/Vol] 139 mmol/L Normal 136-144 [facility] Comment on above: Order Comment: Speci men Type: BLOOD SPECIMEN [facility] Address: [facility] [address] [place] [id number] Performed By: #### 2 4323-8 #### [facility] [id number] [address] [place] [address] [place] Urea nitrogen [Mass/Vol] 13 mg/dL Normal 7-21 [facility] Comment on above: Order Comment: Speci men Type: BLOOD SPECIMEN [facility] Address: [facility] [address] [place] [id number] Performed By: #### 2 4323-8 #### [facility] [id number] [address] [place] [address] [place] WOC74oc 10-17-2023 ECG01 Ventricular Rate : 7 7 BPM Atrial Rate : 77 BPM P-R Interval : 132 ms QRS Duration : 68 ms Q-T Interval : 374 ms QTC Calculation(Bazett) : 423 ms Calculated P Higginson : 17 degrees Calculated R Higginson : 75 degrees Calculated T Higginson : 40 degrees NORMAL SINUS RHYTHM NORMAL ECG Confirmed by MD BONILLA GREGORY () on 10/20/2023 8:30:23 AM NAME : ANGELIQUE WYNNE PID : [id number] : 1970 Gender : Female Race : ORD : Procedure Date : Oct 17 2023 11:40:18 Edit Date : Oct 20 2023 08:30:25 Diagnosis: NORMAL SINUS RHYTHM NORMAL ECG Confirmed by MD BONILLA GREGORY () on 10/20/2023 8:30:23 AM Test Reason : Location : 185 : [facility] Overread By : MD BONILLA GREGORY Edited By : MD BONILLA GREGORY Referred By : RACHEL MCMILLAN Acquired by : EARLINE ZABALA Normal [facility] Ferritin SerPl-mCncon 2023 Ferritin [Mass/Vol] 126.0 ng/mL Normal 14.7-205.1 [facility] Comment on above: Order Comment: Speci men Type: BLOOD SPECIMENOrdering Facility: [facility] Address: [address] [place] [address] Performed By: #### 2 284-8, 2132-9, 2276-4 ####[facility] [id number] [place] [address] [place] Folate SerPl-mCncon 10-17-19 Folate [Mass/Vol] 12.7 ng/mL Normal >4.7 [facility] Comment on above: Order Comment: Yolande dodge Type: BLOOD SPECIMENOrdering Facility: [facility] Address: [address] [place] [address] Performed By: #### 2 284-8, 2132-9, 2276-4 ####[facility] [id number] [place] [address] [place] HbA1c (Bld)on 10-17-2023 Average glucose Estimated from glycated hemoglobin (Bld) [Mass/Vol] 151 mg/dL Normal [facility] Comment on above: Order Comment: Yolande men Type: BLOOD SPECIMENOrdering Facility: [facility] Address: [address] [place] [address] Result Comment: eAG: (Estimated average glucose) is a calculated value from HgbA1c and is player services representative of the average blood glucose level in the last 2-3 month period. Performed By: #### 5 5454-3 ####[facility] LABCLIA [id number] [place] [address] [place] HbA1c (Bld) [Mass fraction] 6.9 % High 4.3-5.6 [facility] Comment on above: Order Comment: Speci men Type: BLOOD SPECIMENOrdering Facility: [facility] Address: [address] [place] [address] Result Comment: Amer ican Diabetes Association guidelines indicate that patients with HgbA1c in the range 5.7-6.4% are at increased risk for development of diabetes, and intervention by lifestyle modification may be beneficial. HgbA1c greater or equal to 6.5% is considered diagnostic of diabetes. Performed By: #### 5 5454-3 ####[facility] LABIA [id number] [place] [address] [place] Iron and Iron binding capaci ty panelon 10-17-2023 Iron [Mass/Vol] 83 ug/dL Normal 41-186 [facility] Comment on above: Order Comment: Speci men Type: BLOOD SPECIMENOrdering Facility: [facility] Address: [address] [place] [address] Performed By: #### 3 016-3, 19290-5, 74846-3 ####[facility] LABCLIA [id number] [address] [place]#### 68198-4 ####[facility] LABCLIA [id number] [place] [address] [place] [facility] [id number] [place] [address] [place] Iron binding capacity [Mass/Vol] 279 ug/dL Normal 232-386 [facility] Comment on above: Order Comment: Speci men Type: BLOOD SPECIMENOrdering Facility: [facility] Address: [address] [place], [place] [address] Performed By: #### 3 016-3, 23773-5, 14028-0 ####[facility] LABCLIA [id number] [place] [address] [place]#### 93211-9 ####[facility] LABCLIA [id number] [place] [id number] [facility] [id number] [place] [address] [place] Iron/TIBC [Molar ratio] 29.7 % Normal 15.0-57.0 [facility] Comment on above: Order Comment: Speci men Type: BLOOD SPECIMENOrdering Facility: [facility] Address: [address] [place] [address] Performed By: #### 3 016-3, 87251-0, ####[facility] LABCLIA [id number] [place] [address] [place]#### 83956-6 ####[facility] LABCLIA [id number] [address] [id number] [place] [address] [place] Lipid 1996 panelon 4 Cholesterol [Mass/Vol] 189 mg/dL Normal <200 [facility] Comment on above: Order Comment: Speci men Type: BLOOD SPECIMENOrdering Facility: [facility] Address: [address] [place] [id number] Result Comment: <200 mg/dL, Desirable 200-239 mg/dL, Borderline high >239 mg/dL, High Performed By: #### 3 016-3, 38683-7, 42271-9 ####[facility] LABCLIA [id number] [place] [address] [place]#### 52869-3 ####[facility] LABCLIA [id number] [address] [id number] [address] [place] Cholesterol in HDL [Mass/Vol] 55 mg/dL Normal >39 [facility] Comment on above: Order Comment: Speci men Type: BLOOD SPECIMENOrdering Facility: [facility] Address: [address] [place] [address] Result Comment: 40-5 9 mg/dL, Acceptable >59 mg/dL, High: Negative risk factor for coronary heart disease <40 mg/dL, Low: Positive risk factor for coronary heart disease Performed By: #### 3 016-3, 92794-1, 73795-0 ####[facility] LABCLIA [id number] [address] [place]#### 89917-9 ####[facility] LABCLIA [id number] [address] [id number] [address] [place] Cholesterol in LDL [Mass/Vol] 115 mg/dL High <100 [facility] Comment on above: Order Comment: Speci men Type: BLOOD SPECIMENOrdering Facility: [facility] Address: [address] [place] [address] Result Comment: <100 mg/dL, Optimal 100-129 mg/dL, Near optimal/above optimal 130-159 mg/dL, Borderline high 160-189 mg/dL, High >189 mg/dL, Very high Secondary prevention optimal LDL Cholesterol levels are recommended to be < 70 mg/dL Performed By: #### 3 016-3, 44922-8, 07885-6 ####[facility] LABCLIA [id number] [address] [place]#### 01528-9 ####[facility] LABCLIA [id number] [address] [id number] [address] STATES [facility] Cholesterol in LDL/Cholesterol in HDL [Mass ratio] 2.09 {ratio} Normal <2.54 [facility] Comment on above: Order Comment: Speci men Type: BLOOD SPECIMENOrdering Facility: [facility] Address: [address] [place] [address] Result Comment: Refklarissa russ: 1. National Cholesterol Education Program ATP III Guideline At-A-Glance Quick Desk Reference: National Heart, Lung, and Blood [facility]od. National Institutes of Health. 2001: NIH Publication No. 01-3305. 2. An International Atherosclerosis Society position paper: global recommendations for the management of dyslipidemia: executive summary, Atherosclerosis. 2014: 232(2):410-413. Performed By: #### 3 016-3, 41850-9, 64984-5 ####[facility] LABCLIA [id number] [place] [address] [place]#### 79695-2 ####[facility] LABCLIA [id number] [address] [id number] [place] [address] [place] Cholesterol in VLDL [Mass/Vol] 19 mg/dL Normal <30 [facility] Comment on above: Order Comment: Speci men Type: BLOOD SPECIMENOrdering Facility: [facility] Address: [address] [place] [address] Performed By: #### 3 016-3, 10548-8, 17390-8 ####[facility] LABCLIA [id number] [place] [address] [place]#### 34079-4 ####[facility] LABCLIA [id number] [address] [id number] [address] [place] Cholesterol non HDL [Mass/Vol] 134 mg/dL High <130 [facility] Comment on above: Order Comment: Speci men Type: BLOOD SPECIMENOrdering Facility: [facility] Address: [address] [place] [address] Result Comment: <130 mg/dL, Optimal 130-159 mg/dL, Near optimal/above optimal 160-189 mg/dL, Borderline high 190-219 mg/dL, High >219 mg/dL, Very high Secondary prevention optimal non HDL Cholesterol levels are recommended to be <100 mg/dL Performed By: #### 3 016-3, 55606-8, 94983-1 ####[facility] LABCLIA [id number] [place] [address] [place]#### 03926-5 ####[facility] LABCLIA [id number] [address] [id number] [place] [address] [place] Cholesterol.total/Cho lesterol in HDL [Mass ratio] 3.44 {ratio} Normal <5.10 [facility] Comment on above: Order Comment: Speci men Type: BLOOD SPECIMENOrdering Facility: [facility] Address: [address] [place] [address] Performed By: #### 3 016-3, 90545-4, 73784-2 ####[facility] LABCLIA [id number] [place] [address] [place]#### 65638-3 ####[facility] LABCLIA [id number] [address] [id number] [place] [address] [place] FASTING TIME 12 hrs Normal [facility] Comment on above: Order Comment: Speci men Type: BLOOD SPECIMENOrdering Facility: [facility] Address: [address] [place] [address] Performed By: #### 3 016-3, 41969-2, 06380-7 ####[facility] LABCLIA [id number] [place] [address] [place]#### 77712-7 ####[facility] LABCLIA [id number] [place] [address] [place] [facility] [id number] [place] [address] [place] Triglyceride [Mass/Vol] 97 mg/dL Normal <150 [facility] Comment on above: Order Comment: Speci men Type: BLOOD SPECIMENOrdering Facility: [facility] Address: [address] [place] [address] Result Comment: <150 mg/dL, Normal 150-199 mg/dL, Borderline high 200-499 mg/dL, High >499 mg/dL, Very high Performed By: #### 3 016-3, 51438-8, 89037-2 ####[facility] LABCLIA [id number] [place] [address] [place]#### 63411-3 ####[facility] LABCLIA [id number] [place] [address] [place] [facility] [id number] [place] [address] [place] NT-proBNP [facility] 10-16 Natriuretic peptide.B prohormone N-Terminal [Mass/Vol] <36 Normal <125 [facility] Comment on above: Order Comment: Speci men Type: BLOOD SPECIMENOrdering Facility: [facility] Address: [address] [place] [address] [place] [address] Performed By: #### 3 016-3, 63942-7, 96500-1 ####[facility] LABCLIA [id number] [address] [place]#### 71504-6 ####[facility] LABCLIA [id number] [address] [id number] [place] [address] [place] TSH SerPl-aCncon 10-17-2023 TSH Qn 1.370 m[IU]/L Normal 0.270-4.200 [facility] Comment on above: Order Comment: Speci men Type: BLOOD SPECIMENOrdering Facility: [facility] Address: [address] [place] [address] Performed By: #### 3 016-3, 75229-1, 68457-1 ####[facility] LABCLIA [id number] [address] [place]#### 64347-2 ####[facility] LABCLIA [id number] [address] [id number] [place] [address] [place] US ABD RIGHT UPPER QUADRANTo n 10-17-2023 US ABD RIGHT UPPER QUADRANT * * *Final Report* * * DATE OF EXAM: Oct 17 2023 10:50AM U 1032 - US ABD RIGHT UPPER QUADRANT / PROCEDURE REASON: multiple diagnoses * * * * Physician Interpretation * * * * EXAMINATION: RIGHT UPPER QUADRANT ULTRASOUND CLINICAL HISTORY: 53 years old Female with Class 2 severe obesity with serious comorbidity and body mass index (BMI) of 35.0 to 35.9 in adult, unspecified obesity type. TECHNIQUE: Sonography of the right upper quadrant was performed. Images were obtained and stored in a permanent archive. MQ: URUQ_2 COMPARISON: CT abdomen pelvis 11/10/1999 and RESULT: Pancreas: Suboptimal visualization. No sonographic abnormality in the visualized portion. Liver: Echotexture: Coarse Echogenicity: Increased Surface contour: Smooth Lesions: None apparent within limitations of the exam. Biliary: No intrahepatic biliary duct dilation. CBD: 0.5 cm at the hilum. Gallbladder: Normal caliber -Contents: No cholelithiasis -Wall: Normal -Other: No pericholecystic fluid. Right Kidney: No hydronephrosis. Ascites: None. IMPRESSION: Hepatic steatosis. [employer]: PSCEdenilson Transcribe Date/Time: Oct 18 2023 6:43P Dictated by : SHAE MAZARIEGOS DO This examination was interpreted and the report reviewed and electronically signed by: SHAE MAZARIEGOS DO on Oct 18 2023 6:45PM EST [id number] Normal [facility] VITAMIN B1 (THIAMINE), WHOLE BLOODon 10-17-2023 Thiamine (Bld) [Moles/Vol] 136.8 nmol/L Normal 84.3-213.3 [facility] Comment on above: Order Comment: Speci men Type: BLOOD SPECIMENOrdering Facility: [facility] Address: [address] [place] [address] Result Comment: This assay measures the concentration of thiamine diphosphate (TDP), the primary active form of vitamin B1. Approximately 90 percent of vitamin B1 present in whole blood is TDP. Thiamine and thiamine monophosphate, which comprise the remaining 10 percent, are not measured. This test was developed and its performance characteristics determined by [facility]'s Gregorio Devlin [facility] Pathology and Laboratory Medicine [facility] (RT-PLMI). It has not been cleared or approved by the FDA. -[facility] is regulated under CLIA as qualified to perform high-complexity testing. This test is used for clinical purposes. It should not be regarded as investigational or for research. Performed By: #### B 1WB ####[facility] LABCLIA [id number] [place] [address] [place] Vit B12 [facility] Cobalamin (Vitamin B12) [Mass/Vol] 257 pg/mL Normal 232-1245 [facility] Comment on above: Order Comment: Speci men Type: BLOOD SPECIMENOrdering Facility: [facility] Address: [address] [facility] [address] [place] [id number] Performed By: #### 2 284-8, 2132-9, 2276-4 ####[facility] LABCLIA [id number] [id number] [id number] [place] XR CHEST 2V FRONTAL/LATon XR CHEST 2V FRONTAL/LAT * * *Final Report* * * DATE OF EXAM: Oct 17 2023 10:46AM [id number] - XR CHEST 2V FRONTAL/LAT / PROCEDURE REASON: multiple diagnoses * * * * Physician Interpretation * * * * EXAMINATION: CHEST RADIOGRAPH (2 VIEW FRONTAL and LATERAL) CLINICAL HISTORY: Class 2 severe obesity with serious comorbidity and body mass index (BMI) of 35.0 to 35.9 in adult, unspecified obesity type (HCC) Class 2 severe obesity with serious comorbidity and body mass index (BMI) of 35.0 to 35.9 in adult, unspecified obesity type (HCC) MQ: XC2_6 EXAM DATE/TIME: 10/17/2023 10:46 AM COMPARISON: Chest x-ray on 09/04/2007 RESULT: Lines, tubes, and devices: None. Lungs and pleura: No consolidation. No lung mass. No pleural effusion. No pneumothorax. Cardiomediastinal silhouette: Normal cardiomediastinal silhouette. Bones and soft tissues: There are mild degenerative changes in the spine. IMPRESSION: No acute radiographic abnormality. [employer]: ROYA Transcribe Date/Time: Oct 17 2023 3:07P Dictated by : AMELIA SR MD This examination was interpreted and the report reviewed and electronically signed by: AMELIA SR MD on Oct 17 2023 3:08PM EST [id number] Normal [facility] XR Chest PA and Lateralon IMPRESSION: No acute radiographic abnormality. [employer]: PSCB Transcribe Date/Time: Oct 17 2023 3:07P Dictated by : AMELIA SR MD This examination was interpreted and the report reviewed and electronically signed by: AMELIA SR MD on Oct 17 2023 3:08PM [facility] DIVISION OF RADIOLOGY * * *Final Report* * * DATE OF EXAM: Oct 17 2023 10:46AM [id number] - XR CHEST 2V FRONTAL/LAT / PROCEDURE REASON: multiple diagnoses * * * * Physician Interpretation * * * * EXAMINATION: CHEST RADIOGRAPH (2 VIEW FRONTAL & LATERAL) CLINICAL HISTORY: Class 2 severe obesity with serious comorbidity and body mass index (BMI) of 35.0 to 35.9 in adult, unspecified obesity type (HCC) Class 2 severe obesity with serious comorbidity and body mass index (BMI) of 35.0 to 35.9 in adult, unspecified obesity type (HCC) MQ: XC2_6 EXAM DATE/TIME: 10/17/2023 10:46 AM COMPARISON: Chest x-ray on 09/04/2007 RESULT: Lines, tubes, and devices: None. Lungs and pleura: No consolidation. No lung mass. No pleural effusion. No pneumothorax. Cardiomediastinal silhouette: Normal cardiomediastinal silhouette. Bones and soft tissues: There are mild degenerative changes in the spine. DIVISION OF RADIOLOGY Provider, [facility] - 10/17/2023 * * *Final Report* * * DATE OF EXAM: Oct 17 2023 10:46AM [id number] - XR CHEST 2V FRONTAL/LAT / PROCEDURE REASON: multiple diagnoses * * * * Physician Interpretation * * * * EXAMINATION: CHEST RADIOGRAPH (2 VIEW FRONTAL & LATERAL) CLINICAL HISTORY: Class 2 severe obesity with serious comorbidity and body mass index (BMI) of 35.0 to 35.9 in adult, unspecified obesity type (HCC) Class 2 severe obesity with serious comorbidity and body mass index (BMI) of 35.0 to 35.9 in adult, unspecified obesity type (HCC) MQ: XC2_6 EXAM DATE/TIME: 10/17/2023 10:46 AM COMPARISON: Chest x-ray on 09/04/2007 RESULT: Lines, tubes, and devices: None. Lungs and pleura: No consolidation. No lung mass. No pleural effusion. No pneumothorax. Cardiomediastinal silhouette: Normal cardiomediastinal silhouette. Bones and soft tissues: There are mild degenerative changes in the spine. IMPRESSION IMPRESSION: No acute radiographic abnormality. [employer]: ROYA Transcribe Date/Time: Oct 17 2023 3:07P Dictated by : AMELIA SR MD This examination was interpreted and the report reviewed and electronically signed by: AMELIA SR MD on Oct 17 2023 3:08PM EST [facility] Radiology Study observation (narrative) [facility] XR Chest PA and LateralOrder ed By: [facility] Provider on 10-17-2023 [facility] CNCOon 09-08-2023 CNCO HNO ID: [id number] Author: COORDINATOR, MAMMOGRAPHY, ? Service: ? Author Type: Physician Type: Letter Filed: 09/08/2023 20:00 Note Text: September 09, 2023 PID: [id number] Angelique Wynne [address] [place] [address] Dear Ms. Wynne, We are pleased to inform you that the results of your recent breast imaging exam on 09/05/2023 are normal. Early detection of cancer is very important. We also understand recommendations regarding breast cancer screening are controversial. Please discuss with your primary care provider which strategy is best for you and whether a mammogram is right for you. Your imaging studies and report will be kept on file at [facility] as part of your permanent medical record and are available for your continuing care. Thank you for allowing us to help in meeting your health care needs. Sincerely, Dr. Patterson Interpreting Radiologist [facility] (Normal over 40) Normal [facility] SCREENINGon 09-05-2023 [facility] SCREENING * * *Final Report* * * DATE OF EXAM: Sep 05 2023 9:33AM [facility] [address] [facility] SCREENING / PROCEDURE REASON: Screening breast examination * * * * Physician Interpretation * * * * RESULT: #[id number] - [facility] SCREENING BILATERAL DIGITAL SCREENING MAMMOGRAM WITH CAD: 09/05/2023 HISTORY: Screening Breast Examination / Screening Mammogram-Patient reports NO symptoms. RESULT: TECHNIQUE: The study was acquired using full field digital technology and interpreted from soft copy. Current study was also evaluated with a Computer Aided Detection (CAD). Comparison is made to exams dated: 06/17/2022 mammogram, 03/06/2020 mammogram - [facility], 11/19/2017 mammogram - [facility], and 11/01/2016 mammogram - [facility]. There are scattered areas of fibroglandular density. There are stable benign lymph nodes in both breasts. No significant masses, calcifications, or other findings are seen in either breast. There has been no significant interval change. IMPRESSION: BENIGN FINDING There is no mammographic evidence of malignancy. A 1 year screening mammogram is recommended. Yesica phillips/arlene:09/08/2023 20:00:39 Group Home Supervisor(s): RT Cliff(R)(M), [facility] letter sent: Normal over 40 Mammogram BI-RADS: 2 Benign finding Multiple national specialty organizations have released breast cancer screening guidelines for women at average risk for developing breast cancer - guidelines that are based on both evidence and opinion, yet differ on when to start and how often to screen for breast cancer. With representation from Breast Imaging, Internal Medicine, Women's Health, Family Medicine, and Medical/Surgical Oncology, the [facility] has carefully reviewed the data and reached the following consensus: 1) All women should engage in shared decision-making with their providers to decide when to start and how often to screen; 2) All women should have the opportunity to start screening mammography at age 40; 3) For women ages 45-55, we recommend annual screening mammograms; 4) For women ages 55 and over, we support both the transition from an annual to a biennial interval if this aligns more with patient's values and preferences, or continuation with annual screening; 5) All women should discuss with their providers when to stop screening mammograms. Evp Marketing: Arlene Transcribe Date/Time: Sep 05 2023 9:25A Dictated by: YESICA PATTERSON MD This examination was interpreted and the report reviewed and electronically signed by: YESICA PATTERSON MD on Sep 08 2023 8:00PM EST [id number] Normal [facility] CNOVon 06-13-2023 CNOV Office Visit (FAMPWS ) ANGELIQUE WYNNE ([id number]) 1970 F Date Time Provider Department 06/13/23 10:20 AM LUIS STALEY During your visit today, we recorded the following information about you: Pulse Blood pressure Weight Height 95/minute 122/70 81.2 kg 1.524 m Luis Staley MD 06/13/2023 5:03 PM Signed Patient presents with: 6 Month Exam HPI: Patient presents today for office visit for follow up. No concerns today. Overall feeling well. HTN: Continues on Lisinopril 20 mg daily Does not monitor BP Denies chest pain and shortness of breath Denies headaches and dizziness Denies palpitations No syncopal episodes Denies edema HLD: Continues on Atorvastatin 40 mg daily No myalgias DM: Doesn't check BS often. Maybe once or twice a month. Continues on Trulicity weekly No unexpected weight loss No bowel issues. We follow cea. Component Latest Ref Rng AND Units 06/06/2023 Hemoglobin A1C 4.3 - 5.6 % 6.8 (H) Estimated Average Glucose mg/dL 148 MEDICATIONS: Current Outpatient Medications Medication Sig lisinopril (ZESTRIL) 20 mg tablet Take 1 tablet by mouth once daily. Lancets lancets Use with blood glucose test once daily. Insulin Dep? Yes blood sugar diagnostic test strip Use with blood glucose test once daily, Insulin Dep? No dulaglutide (TRULICITY) 4.5 mg/0.5 mL pen injector Inject 4.5 mg subcutaneously one time a week. atorvastatin (LIPITOR) 40 mg tablet Take 1 tablet by mouth daily at bedtime. For cholesterol. Blood-Glucose Meter Test One time a day. Blood Glucose Control, Normal soln Use as directed No current facility-administered medications for this visit. 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 Other and unspecified hyperlipidemia Personal history of malignant neoplasm of rectum, rectosigmoid junction, and anus PAST SURGICAL HISTORY Procedure Laterality Date COLECTOMY PARTIAL W/ANASTOMOSIS low anterior resection 31ceea anastamosis COLON SURGERY HX COLONOSCOPY FLX DX W/COLLJ SPEC WHEN PFRMD clean anastamosis COLONOSCOPY FLX DX W/COLLJ SPEC WHEN PFRMD 10/23/09, 11/05/11 clean anastamosis - recommend 3 year follow up COLONOSCOPY FLX DX W/COLLJ SPEC WHEN PFRMD 01/03/15 clean anastamosis - recommend 5 year follow up COLONOSCOPY FLX DX W/COLLJ SPEC WHEN PFRMD 01/06/2020 Colonoscopy COLONOSCOPY W/BIOPSY SINGLE/MULTIPLE 09/02/07 EGD TRANSORAL BIOPSY SINGLE/MULTIPLE 09/02/07 EGD TRANSORAL BIOPSY SINGLE/MULTIPLE INSJ TUNNELED CTR VAD W/SUBQ PORT AGE 5 YR/> 11/20/2007 Left Subclavian REMOVED PAST SURGICAL HISTORY OF 2004 needle biopsy of the left breast FAMILY HISTORY Adopted: Yes Problem Relation Age of Onset Diabetes Father Heart Father 62 from [place] Hypertension Father Heart Sister cancer--possible heart attack with chemo other (Crohn's Disease) Daughter Social History Tobacco Use Smoking status: Never Smokeless tobacco: Never Vaping Use Vaping Use: Never used Substance Use Topics Alcohol use: Yes Comment: Rarely Drug use: No Reviewed current medications, allergies, past medical history, surgical history, family history and social history today. REVIEW OF SYSTEMS All other reviewed and negative other than HPI. HEALTH MAINTENANCE: Reviewed health maintenance issues today and recommended the following in detail. BP Controlled (<130/80) Never done Dilated Retinal Exam-see yearly. Pap Testing due on 11/19/2022 HPV Testing due on 11/19/2022 Influenza Vaccine(1) due on 01/31/2023 Covid-19 Vaccine(2022- season) due on 01/31/2023 Depression Assessment Never done Mammogram Screening due on 06/17/2023 Diabetic Foot Exam due on 06/17/2023 VITALS: BP 122/70 Pulse 95 Ht 152.4 cm (5') Wt 81.2 kg (179 lb) LMP 09/19/2017 SpO2 97% BMI 34.96 kg/m? Last 4 Encounter Wt Readings: Date: Wt: 06/13/2023 81.2 kg (179 lb) 12/13/2022 82.6 kg (182 lb) 06/17/2022 81.5 kg (179 lb 9.6 oz) 12/19/2021 83 kg (183 lb) PHYSICAL EXAMINATION: General appearance: Well appearing, alert, in no acute distress, well-hydrated, well nourished. Skin: Skin color, texture, turgor normal, no suspicious rashes or lesions Head: Normocephalic, no masses, lesions, tenderness or abnormalities Neck: Supple, no adenopathy; thyroid symmetric, normal size, no bruits Lungs: Lungs clear to auscultation. No wheezing, rhonchi, rales Heart: RRR without murmur, gallop, or rubs. No ectopy Abdomen: Normal abdominal exam, Abdomen soft, non-tender. Bowel s (more content not included)... Normal [facility] HbA1c (Bld)on 06-06-2023 Average glucose Estimated from glycated hemoglobin (Bld) [Mass/Vol] 148 mg/dL Normal [facility] Comment on above: Order Comment: Yolande dodge Type: BLOOD SPECIMENOrdering Facility: [facility] Address: [address] [place] [address] Result Comment: eAG: (Estimated average glucose) is a calculated value from HgbA1c and is player services representative of the average blood glucose level in the last 2-3 month period. Performed By: #### 5 5454-3 ####[facility] LABCLIA [id number] [facility] [id number] [place] [address] [place] HbA1c (Bld) [Mass fraction] 6.8 % High 4.3-5.6 [facility] Comment on above: Order Comment: Yolande dodge Type: BLOOD SPECIMENOrdering Facility: [facility] Address: [address] [place] [address] Result Comment: Amer ican Diabetes Association guidelines indicate that patients with HgbA1c in the range 5.7-6.4% are at increased risk for development of diabetes, and intervention by lifestyle modification may be beneficial. HgbA1c greater or equal to 6.5% is considered diagnostic of diabetes. Performed By: #### 5 5454-3 ####[facility] LABCLIA [id number] [place] [address] [place] GUICHO SCREENINGon 06-17-2022 [facility] Vital Signs Date Time Vital Sign Value Performing Clinician Facility 12-08-2023 09:35-0400 Body height 149.9 cm Jesus Ortiz MD Work Phone: [facility] 12-08-2023 09:35-0400 Body mass index (BMI) [Ratio] 36.36 kg/m2 Jesus Ortiz MD Work Phone: [facility] 12-08-2023 09:35-0400 Body weight 81.65 kg Jesus Ortiz MD Work Phone: [facility] 12-08-2023 09:35-0400 Diastolic blood pressure 79 mm[Hg] Jesus Ortiz MD Work Phone: [facility] 12-08-2023 09:35-0400 Heart rate 79 /min Jesus Ortiz MD Work Phone: [facility] 12-08-2023 09:35-0400 SaO2% (BldA) [Mass fraction] 97 % Jesus Ortiz MD Work Phone: [facility] 12-08-2023 09:35-0400 Systolic blood pressure 123 mm[Hg] Jesus Ortiz MD Work Phone: [facility] 12-05-2023 09:58-0400 Body mass index (BMI) [Ratio] 37.14 kg/m2 Luis Staley MD Work Phone: [facility] 12-05-2023 09:58-0400 Body weight 83.46 kg Luis Staley MD Work Phone: [facility] 12-05-2023 09:58-0400 Diastolic blood pressure 75 mm[Hg] Luis Staley MD Work Phone: [facility] 12-05-2023 09:58-0400 Heart rate 81 /min Luis Staley MD Work Phone: [facility] 12-05-2023 09:58-0400 SaO2% (BldA) [Mass fraction] 98 % Luis Staley MD Work Phone: [facility] 12-05-2023 09:58-0400 Systolic blood pressure 118 mm[Hg] Luis Staley MD Work Phone: [facility] 11-28-2023 09:05-0400 Body height 149.[address] Work Phone: [facility] 11-28-2023 09:05-0400 Body mass index (BMI) [Ratio] 36.37 kg/m2 Rolf Patino RD Work Phone: [facility] 11-28-2023 09:05-0400 Body weight 81.[address] Work Phone: [facility] Comment on above: verbal, per patient 11-13-2023 10:05-0400 Diastolic blood pressure 80 mm[Hg] Higinio Campuzano MD Work Phone: [facility] 11-13-2023 10:05-0400 Heart rate 86 /min Higinio Campuzano MD Work Phone: [facility] 11-13-2023 10:05-0400 Respiratory rate 16 /min Higinio Campuzano MD Work Phone: [facility] 11-13-2023 10:05-0400 SaO2% (BldA) [Mass fraction] 97 % Higinio Campuzano MD Work Phone: [facility] 11-13-2023 10:05-0400 Systolic blood pressure 129 mm[Hg] Higinio Campuzano MD Work Phone: [facility] 11-13-2023 08:30-0400 Body temperature 97.11 [degF] Higinio Campuzano MD Work Phone: [facility] 11-06-2023 07:50-0400 Body height 149.[address] Work Phone: [facility] 11-06-2023 07:50-0400 Body mass index (BMI) [Ratio] 36.33 kg/m2 Rolf Patino RD Work Phone: [facility] 11-06-2023 07:50-0400 Body weight 81.65 kg Rolf Carey SHAH Work Phone: [facility] Comment on above: verbal, per patient 10-21-2023 08:27-0400 Body height 149.9 cm Broderick Ansari MD Work Phone: [facility] 10-21-2023 08:27-0400 Body mass index (BMI) [Ratio] 36.34 kg/m2 Broderick Ansari MD Work Phone: [facility] 10-21-2023 08:27-0400 Body temperature 98.01 [degF] Broderick Ansari MD Work Phone: [facility] 10-21-2023 08:27-0400 Body weight 81.65 kg Broderick Ansari MD Work Phone: [facility] 10-21-2023 08:27-0400 Diastolic blood pressure 74 mm[Hg] Broderick Ansari MD Work Phone: [facility] 10-21-2023 08:27-0400 Heart rate 76 /min Broderick Ansari MD Work Phone: [facility] 10-21-2023 08:27-0400 SaO2% (BldA) [Mass fraction] 95 % Broderick Ansari MD Work Phone: [facility] 10-21-2023 08:27-0400 Systolic blood pressure 149 mm[Hg] Broderick Ansari MD Work Phone: [facility] 10-02-2023 08:54-0400 Body height 149.9 cm Rachel Bulow CABLE INSTALLER REPAIRER HELPER.ASTROPHYSICS TEACHER Work Phone: [facility] 10-02-2023 08:54-0400 Body mass index (BMI) [Ratio] 35.95 kg/m2 Rachel Bulow CABLE INSTALLER REPAIRER HELPER.ASTROPHYSICS TEACHER Work Phone: [facility] 10-02-2023 08:54-0400 Body weight 80.74 kg Rachel Bulow CABLE INSTALLER REPAIRER HELPER.ASTROPHYSICS TEACHER Work Phone: [facility] 12-13-2022 10:46-0400 Body height 152.4 cm Luis Staley MD Work Phone: [facility] 12-13-2022 10:46-0400 Body weight 82.56 kg Luis Staley MD Work Phone: [facility] 12-13-2022 10:46-0400 Diastolic blood pressure 76 mm[Hg] Luis Staley MD Work Phone: [facility] 12-13-2022 10:46-0400 Heart rate 84 /min Luis Staley MD Work Phone: [facility] 12-13-2022 10:46-0400 SaO2% (BldA) [Mass fraction] 97 % Luis Staley MD Work Phone: [facility] 12-13-2022 10:46-0400 Systolic blood pressure 130 mm[Hg] Luis Staley MD Work Phone: [facility] 12-19-2021 09:36-0400 Body weight 83.01 kg Luis Staley MD Work Phone: [facility] 12-19-2021 09:36-0400 Diastolic blood pressure 80 mm[Hg] Luis Staley MD Work Phone: [facility] 12-19-2021 09:36-0400 Heart rate 80 /min Luis Staley MD Work Phone: [facility] 12-19-2021 09:36-0400 Respiratory rate 16 /min Luis Staley MD Work Phone: [facility] 12-19-2021 09:36-0400 Systolic blood pressure 118 mm[Hg] Luis Staley MD Work Phone: [facility] Encounters Encounter Date Encounter Type Care Provider Facility Start: 02-04-2024 End: 02-04-2024 Refill Luis Staley MD Work Phone: [facility] Comment on above: Refill Request Start: 01-19-2024 End: 02-04-2024 Admission to same day surgery center Broderick Ansari MD Work Phone: General Surgery Comment on above: Insurance denial Start: 01-19-2024 End: 02-04-2024 ambulatory Broderick Ansari MD Work Phone: General Surgery Start: 01-08-2024 Admission to [facility] Broderick Ansari MD Work Phone: General Surgery Comment on above: Insurance Authorizat ion Start: 01-08-2024 ambulatory Broderick Ansari MD Work Phone: General Surgery Start: 12-08-2023 End: 02-12-2024 ambulatory LUIS Maya REBEKA Facility:[facility] Start: 12-08-2023 End: 12-08-2023 Patient encounter procedure Jesus Ortiz MD Work Phone: Neurology Comment on above: JANA (obstructive sle ep apnea) (Primary Dx); Class 2 severe obesity with serious comorbidity and body mass index (BMI) of 35.0 to 35.9 in adult, unspecified obesity type (HCC) Start: 12-05-2023 End: 12-05-2023 ambulatory LUIS REBEKA Facility:[facility] Start: 12-05-2023 End: 12-05-2023 Patient encounter procedure Luis Staley MD Work Phone: [facility] [place] Comment on above: Mixed hyperlipidemia (Primary Dx); Essential hypertension; Diabetes mellitus without complication (HCC); Class 2 severe obesity with serious comorbidity and body mass index (BMI) of 35.0 to 35.9 in adult, unspecified obesity type (HCC); Personal history of rectal cancer Start: 12-02-2023 Telephone encounter Luis Staley MD Work Phone: [facility] [place] Comment on above: Results Start: 12-01-2023 End: 12-01-2023 ambulatory [facility] Facility:[facility] Start: 11-28-2023 End: 11-28-2023 ambulatory [facility] Facility:[facility] Start: 11-28-2023 End: 11-28-2023 Patient encounter procedure Rolf Patino RD Work Phone: BMI [facility] Comment on above: Obesity, Class II, B AL 35-39.9 (Primary Dx); Dietary counseling and surveillance Start: 11-28-2023 End: 11-28-2023 Telemedicine consultation with patient Rolf Carey SHAH Work Phone: [facility] Start: 11-18-2023 ambulatory Luis Staley MD Work Phone: [facility] Comment on above: Blood work Start: 11-13-2023 End: 11-13-2023 ambulatory LUIS STALEY Facility:[facility] Start: 11-13-2023 End: 11-13-2023 Subsequent hospital visit by physician Higinio Campuzano MD Work Phone: Ambulatory Surgery Comment on above: Class 2 severe obesi ty with serious comorbidity and body mass index (BMI) of 35.0 to 35.9 in adult, unspecified obesity type (HCC) [E66.01, Z68.35] Start: 11-07-2023 End: 11-07-2023 ambulatory LUIS STALEY Facility:[facility] Start: 11-06-2023 End: 11-06-2023 ambulatory LUIS STALEY Facility:[facility] Start: 11-06-2023 End: 11-06-2023 Patient encounter procedure Rolf Patino RD Work Phone: [facility] Comment on above: Diabetes mellitus wi thout complication (HCC) (Primary Dx); Obesity, Class II, BMI 35-39.9; Dietary counseling and surveillance Start: 11-06-2023 End: 11-06-2023 Telemedicine consultation with patient Rolf Yashamir SHAH Work Phone: [facility] Start: 11-05-2023 End: 11-06-2023 ambulatory RACHEL SUSANHEBERT Facility:[facility] Start: 10-24-2023 Admission to [facility] Broderick Ansari MD Work Phone: General Surgery Comment on above: Endoscope medication Start: 10-24-2023 ambulatory Broderick Ansari MD Work Phone: General Surgery Start: 10-21-2023 End: 10-21-2023 ambulatory BRODERICK ANSARI Facility:[facility] Start: 10-21-2023 End: 10-21-2023 Patient encounter procedure Broderick Ansari MD Work Phone: General Surgery Comment on above: Class 2 severe obesi ty with serious comorbidity and body mass index (BMI) of 35.0 to 35.9 in adult, unspecified obesity type (HCC) (Primary Dx) Start: 10-17-2023 End: 10-17-2023 Nursing evaluation of patient and report Mi Nurse Work Phone: [facility] [place] Comment on above: Class 2 severe obesi ty with serious comorbidity and body mass index (BMI) of 35.0 to 35.9 in adult, unspecified obesity type (HCC) Start: 10-17-2023 End: 10-17-2023 ambulatory RACHEL MCMILLAN Facility:[facility] Start: 10-17-2023 End: 10-17-2023 ambulatory [facility] Facility:[facility] Start: 10-17-2023 End: 10-17-2023 Subsequent hospital visit by physician [facility] [place] Mob Work Phone: Radiology Comment on above: Class 2 severe obesi ty with serious comorbidity and body mass index (BMI) of 35.0 to 35.9 in adult, unspecified obesity type (HCC) [E66.01, Z68.35] Start: 10-17-2023 End: 10-17-2023 Subsequent hospital visit by physician [facility] Mob 2 Work Phone: Radiology Comment on above: Class 2 severe obesi ty with serious comorbidity and body mass index (BMI) of 35.0 to 35.9 in adult, unspecified obesity type (HCC) [E66.01, Z68.35] Start: 10-17-2023 End: 10-17-2023 ambulatory [facility] Facility:[facility] Start: 10-15-2023 End: 10-16-2023 ambulatory [facility] Facility:[facility] Start: 10-14-2023 Chart abstracting [facility] Work Phone: Neurology Start: 10-07-2023 End: 10-07-2023 ambulatory [facility] Facility:[facility] Start: 10-02-2023 End: 10-02-2023 Admission to same day surgery center Rachel Mcmillan APRN.ASTROPHYSICS TEACHER Work Phone: General Surgery BMI Comment on above: Class 2 severe obesi ty with serious comorbidity and body mass index (BMI) of 35.0 to 35.9 in adult, unspecified obesity type (HCC) (Primary Dx) Start: 10-02-2023 End: 10-02-2023 ambulatory [facility] Facility:[facility] Start: 10-02-2023 End: 10-02-2023 Telemedicine consultation with patient Rachel Mcmillan APRN.ASTROPHYSICS TEACHER Work Phone: General Surgery BMI Start: 09-08-2023 Documentation procedure Mammog anjali Coordinator [facility] Start: 09-08-2023 Letter encounter Mammography Coordinator [facility] Department Start: 09-05-2023 End: 09-05-2023 ambulatory [facility] Facility:[facility] Start: 09-05-2023 End: 09-05-2023 Subsequent hospital visit by physician Screen Mammo [facility] Comment on above: Screening breast exa mination [Z12.39] Start: 08-13-2023 Refill Oscar argueta PA-C Work Phone: Family Medicine [place] Comment on above: Refill Request Start: 06-13-2023 End: 06-13-2023 ambulatory [facility] Facility:[facility] Start: 06-06-2023 End: 06-06-2023 [facility] Facility:[facility] Start: 02-07-2023 Refill Luis Staley MD Work Phone: Family Medicine [place] Comment on above: Refill Request Start: 12-13-2022 End: 12-13-2022 Patient encounter procedure Luis Staley MD Work Phone: Family Medicine [place] Comment on above: Essential hypertensi on (Primary Dx); Mixed hyperlipidemia; Personal history of rectal cancer; Diabetes mellitus without complication (HCC); Vitamin D deficiency; Obesity, Class II, BMI 35-39.9 Start: 08-08-2022 Refill Luis tSaley MD Work Phone: [facility] [place] Comment on above: Refill Request Start: 06-17-2022 End: 06-17-2022 Subsequent hospital visit by physician Screen Mammo [facility] Comment on above: Encounter for screen ing mammogram for breast cancer [Z12.31] Start: 12-19-2021 ambulatory Luis Staley MD Work Phone: [facility] [place] Comment on above: Trulicty - A1C Start: 12-19-2021 End: 12-19-2021 Patient encounter procedure Luis Staley MD Work Phone: [facility] [place] Comment on above: Essential hypertensi on (Primary Dx); Diabetes mellitus without complication (HCC); Mixed hyperlipidemia; Malignant neoplasm of colon, unspecified part of colon (HCC) Start: 11-28-2021 ambulatory Luis Staley MD Work Phone: Internal Medicine Main [place] Procedures Date Procedure Procedure Detail Performing Clinician Start: 11-13-2023 Esophagogastroduodenoscopy transoral diagnostic Broderick Ansari MD Work Phone: Start: 10-17-2023 Radiologic exam chest 2 views Rachel lira APRN.ASTROPHYSICS TEACHER Work Phone: Start: 06-17-2022 End: 06-17-2022 Mammography Bulk Order Provider Start: 03-06-2020 Mammography Luis Staley MD Work Phone: Start: 01-06-2020 Colonoscopy Luis Staley MD Work Phone: Plan of Treatment Date Care Activity Detail Author Start: 01-05-2025 Colonoscopy COLONOSCOPY [facility] Start: 01-05-2025 COLORECTAL CANCER SCREENING COLORECTAL CANCER SCREENING [facility] Start: 01-05-2025 Screening for malignant neoplasm of colon [facility] Start: 12-07-2024 BP Controlled (<130/80) BP Controlled (<130/80) [facility] Start: 12-04-2024 Annual PCP Team Chronic Disease Visit Annual PCP Team Chronic Disease Visit [facility] Start: 12-04-2024 BP Controlled (<130/80) BP Controlled (<130/80) [facility] Start: 11-30-2024 Hepatitis B screening Urine Albumin:Creatinine Ratio [facility] Start: 11-30-2024 Hepatitis B surface antibody level LDL Cholesterol [facility] Start: 10-16-2024 Hepatitis B surface antibody level LDL Cholesterol [facility] Start: 09-04-2024 Screening for malignant neoplasm of breast Mammogram Screening [facility] Start: 06-13-2024 Annual PCP Team Chronic Disease Visit Annual PCP Team Chronic Disease Visit [facility] Start: 06-13-2024 BP Controlled (<130/80) BP Controlled (<130/80) [facility] Start: 06-13-2024 Diabetic foot examination Diabetic Foot Exam [facility] Start: 06-07-2024 End: 06-07-2024 Patient encounter procedure 06/07/2024 10:00 AM EST Office Visit [facility] [place] [address] [place] [address] Luis Staley MD [address] [place], [place] [id number] 6 month follow up [facility] [place] Comment on above: 6 month follow up Start: 06-02-2024 Hemoglobin A1c measurement HbA1C [facility] Start: 05-10-2024 End: 05-10-2024 ambulatory 05/10/2024 8:00 AM EST [facility] Neurology [address] [place] [address] Do Lr APRN.ASTROPHYSICS TEACHER [address] [place] [address] f/u w/PAP [facility] Neurology Comment on above: f/u w/PAP [facility] Start: 04-18-2024 Hemoglobin A1c measurement HbA1C [facility] Start: 03-16-2024 End: 03-16-2024 ambulatory 03/16/2024 4:00 PM EDT [facility] [address] [place] [address] Do Lr APRN.ASTROPHYSICS TEACHER [address] [place] [address] f/u w/PAP [facility] Neurology Comment on above: f/u w/PAP [facility] Start: 02-15-2024 Subsequent hospital visit by physician 02/15/2024 Hospital Encounter [facility] Operating Room [address] [place] [address] [place] [address] [facility] [address] [place] [address] Obesity, Class II, BMI 35-39.9 [E66.9] [facility] Comment on above: Obesity, Class II, BMI 35-39.9 [E66.9] Start: 02-12-2024 End: 02-12-2024 ambulatory 02/12/2024 3:30 PM EDT [facility] [address] [place] [address] Puja Greene APRN.ASTROPHYSICS TEACHER, PhD [address] [place] [address] sleep study group Per [facility] Comment on above: sleep study group Per [place] Start: 02-01-2024 Influenza vaccination Influenza Vaccine (#1) [facility] c Start: 12-14-2023 ANNUAL PCP TEAM CHRONIC DISEASE VISIT ANNUAL PCP TEAM CHRONIC DISEASE VISIT [facility] Start: 12-14-2023 PNEUMOCOCCAL (1 - PCV) PNEUMOCOCCAL (1 - PCV) [facility] Comment on above: Postponed from 1974 (Declined at t his time) Start: 12-14-2023 Pneumococcal vaccination [facility] Comment on above: Postponed from 1974 (Declined at t his time) Start: 12-14-2023 SHINGRIX VACCINE (1 of 2) SHINGRIX VACCINE (1 of 2) [facility] Comment on above: Postponed from 2018 (Declined at t his time) Start: 12-14-2023 Urine microalbumin profile [facility] Comment on above: Postponed from 1987 (Declined at t his time) Start: 12-08-2023 End: 12-08-2023 Patient encounter procedure 12/08/2023 10:00 AM EDT Office Visit Neurology [address] [place] [address] Jesus Ortiz MD [address] [place] [address] [place] [address] Class 2 severe obesity with serious comorbidity and body mass index (BMI) of 35.... Neurology Comment on above: Class 2 severe obesity with serious lili rbidity and body mass index (BMI) of 35.... Start: 12-07-2023 Hepatitis B screening URINE ALBUMIN:CREATININE RATIO [facility] Start: 12-07-2023 Hepatitis B surface antibody level LDL CHOLESTEROL [facility] Start: 12-05-2023 Hemoglobin A1c measurement HbA1C [facility] Start: 12-05-2023 End: 12-05-2023 Patient encounter procedure 12/05/2023 10:00 AM EDT Office Visit [facility] [place] [address] [place], [place] [id number] Luis Staley MD [address] [place], [place] [id number] 6 mth f/u [facility] [place] Comment on above: 6 mth f/u Start: 12-02-2023 End: 03-02-2024 ALK PHOS ISOENZYM BL ALK PHOS ISOENZYM BL Lab Routine Elevated alkaline phosphatase level Expected: 12/02/2023, Expires: 03/02/2024 [facility] Work Phone: Comment on above: Expected: 12/02/2023, Expires: Start: 11-28-2023 End: 11-28-2023 Patient encounter procedure 11/28/2023 8:00 AM EDT [facility] BMI [facility] [address] [place], [place] [id number] Rolf Patino, RD [address] [place] [address] Red/Ansari/0 Diet/MMO BMI [facility] Comment on above: Red/Ansari/0 Diet/MMO Start: 11-18-2023 End: 02-17-2024 Carcinoembryonic Ag [Mass/volume] in Serum or Plasma CARCINOEMBRYONIC ANTIGEN Lab Routine Personal history of rectal cancer Expected: 11/18/2023, Expires: 02/17/2024 [facility] Work Phone: Comment on above: Expected: 11/18/2023, Expires: Start: 11-13-2023 End: 11-13-2023 Patient encounter procedure Ambulatory Surgery Comment on above: Class 2 severe obesity with serious lili rbidity and body mass index (BMI) of 35.... Start: 11-06-2023 End: 11-06-2023 Patient encounter procedure Endocrinology BMI Comment on above: Red/Ansari/0 Diet/MMO [employer] Start: 10-21-2023 End: 10-21-2023 Patient encounter procedure 10/21/2023 8:30 AM EDT Office Visit General Surgery [address] [place] [address] [place] [address] [place] [address] Red/Ansari/0 Diet/MMO General Surgery Comment on above: Red/Ansari/0 Diet/MMO Start: 10-17-2023 End: 10-17-2023 Nursing evaluation of patient and report 10/17/2023 11:30 AM EDT Nurse Visit Family Medicine [address] [place], [place] [id number] Nurse, Ny [address] [place] [address] E66.01,Z68.35 (ICD-10-CM) - Class 2 severe obesity with serious comorbidity and body mass index (BMI) of 35.0 to 35.9 in adult, unspecified obesity type (HCC) Family Medicine [place] Comment on above: E66.01,Z68.35 (ICD-10-CM) - Class 2 lena re obesity with serious comorbidity and body mass index (BMI) of 35.0 to 35.9 in adult, unspecified obesity type (HCC) Start: 10-17-2023 End: 10-17-2023 Patient encounter procedure Radiology Comment on above: E66.01,Z68.35 (ICD-10-CM) - Class 2 lena re obesity with serious comorbidity and body mass index (BMI) of 35.0 to 35.9 in adult, unspecified obesity type (HCC) Start: 10-17-2023 End: 10-17-2023 ambulatory 10/17/2023 9:15 AM EDT Results Only [place]ani Wuwn [facility] [address] [place] [address] [place]ani Vilas [facility] Start: 10-16-2023 End: 10-16-2023 Patient encounter procedure 10/16/2023 10:00 AM EDT Office Visit Neurology [address] [place] [address] [facility] Neurology Comment on above: [facility] Start: 10-02-2023 End: 01-01-2024 25-hydroxyvitamin D3 [Mass/volume] in Serum or Plasma VITAMIN D 25 HYDROXY Lab Routine Class 2 severe obesity with serious comorbidity and body mass index (BMI) of 35.0 to 35.9 in adult, unspecified obesity type (HCC) Expected: 10/02/2023, Expires: 01/01/2024 [facility] Comment on above: Expected: 10/02/2023, Expires: 4 Start: 10-02-2023 End: 01-01-2024 CBC W Auto Differential panel - Blood COMPLETE BLOOD COUNT AND DIFFERENTIAL Lab Routine Class 2 severe obesity with serious comorbidity and body mass index (BMI) of 35.0 to 35.9 in adult, unspecified obesity type (HCC) Expected: 10/02/2023, Expires: 01/01/2024 [facility] Work Phone: Comment on above: Expected: 10/02/2023, Expires: 4 Start: 10-02-2023 End: 01-01-2024 Cobalamin (Vitamin B12) [Mass/volume] in Serum or Plasma VITAMIN B12 Lab Routine Class 2 severe obesity with serious comorbidity and body mass index (BMI) of 35.0 to 35.9 in adult, unspecified obesity type (HCC) Expected: 10/02/2023, Expires: 01/01/2024 [facility] Comment on above: Expected: 10/02/2023, Expires: 4 Start: 10-02-2023 End: 01-01-2024 Comprehensive metabolic 2000 panel - Serum or Plasma COMPREHENSIVE METABOLIC PANEL Lab Routine Class 2 severe obesity with serious comorbidity and body mass index (BMI) of 35.0 to 35.9 in adult, unspecified obesity type (HCC) Expected: 10/02/2023, Expires: 01/01/2024 [facility] Comment on above: Expected: 10/02/2023, Expires: Start: 10-02-2023 End: 01-01-2024 Ferritin [Mass/volume] in Serum or Plasma FERRITIN Lab Routine Class 2 severe obesity with serious comorbidity and body mass index (BMI) of 35.0 to 35.9 in adult, unspecified obesity type (HCC) Expected: 10/02/2023, Expires: 01/01/2024 [facility] Comment on above: Expected: 10/02/2023, Expires: Start: 10-02-2023 End: 01-01-2024 Folate [Mass/volume] in Serum or Plasma FOLATE, SERUM Lab Routine Class 2 severe obesity with serious comorbidity and body mass index (BMI) of 35.0 to 35.9 in adult, unspecified obesity type (HCC) Expected: 10/02/2023, Expires: 01/01/2024 [facility] Comment on above: Expected: 10/02/2023, Expires: Start: 10-02-2023 End: 01-01-2024 Hemoglobin A1c in Blood HEMOGLOBIN A1C Lab Routine Class 2 severe obesity with serious comorbidity and body mass index (BMI) of 35.0 to 35.9 in adult, unspecified obesity type (HCC) Expected: 10/02/2023, Expires: 01/01/2024 [facility] Comment on above: Expected: 10/02/2023, Expires: Start: 10-02-2023 End: 01-01-2024 Iron and Iron binding capacity panel - Serum or Plasma IRON AND TIBC Lab Routine Class 2 severe obesity with serious comorbidity and body mass index (BMI) of 35.0 to 35.9 in adult, unspecified obesity type (HCC) Expected: 10/02/2023, Expires: 01/01/2024 [facility] Comment on above: Expected: 10/02/2023, Expires: Start: 10-02-2023 End: 01-01-2024 Lipid 1996 panel - Serum or Plasma LIPID PANEL BASIC Lab Routine Class 2 severe obesity with serious comorbidity and body mass index (BMI) of 35.0 to 35.9 in adult, unspecified obesity type (HCC) Expected: 10/02/2023, Expires: 01/01/2024 [facility] Comment on above: Expected: 10/02/2023, Expires: Start: 10-02-2023 End: 01-01-2024 Natriuretic peptide.B prohormone N-Terminal [Mass/volume] in Serum or Plasma NT PRO BNP Lab Routine Class 2 severe obesity with serious comorbidity and body mass index (BMI) of 35.0 to 35.9 in adult, unspecified obesity type (HCC) Expected: 10/02/2023, Expires: 01/01/2024 [facility] Comment on above: Expected: 10/02/2023, Expires: Start: 10-02-2023 End: 01-01-2024 Thyrotropin [Units/volume] in Serum or Plasma THYROID STIMULATING HORMONE Lab Routine Class 2 severe obesity with serious comorbidity and body mass index (BMI) of 35.0 to 35.9 in adult, unspecified obesity type (HCC) Expected: 10/02/2023, Expires: 01/01/2024 [facility] Comment on above: Expected: 10/02/2023, Expires: Start: 10-02-2023 End: 01-01-2024 VITAMIN B1 (THIAMINE), WHOLE BLOOD VITAMIN B1 (THIAMINE), WHOLE BLOOD Lab Routine Class 2 severe obesity with serious comorbidity and body mass index (BMI) of 35.0 to 35.9 in adult, unspecified obesity type (HCC) Expected: 10/02/2023, Expires: 01/01/2024 [facility] Comment on above: Expected: 10/02/2023, Expires: Start: 06-17-2023 3 comp foot exam completed DIABETIC FOOT EXAM [facility] Start: 06-17-2023 ANNUAL PCP TEAM CHRONIC DISEASE VISIT ANNUAL PCP TEAM CHRONIC DISEASE VISIT [facility] Start: 06-17-2023 BP CONTROLLED (<130/80) BP CONTROLLED (<130/80) [facility] Start: 06-17-2023 Mammography [facility] Start: 06-17-2023 Screening for malignant neoplasm of breast Mammogram Screening [facility] Start: 06-15-2023 End: 08-15-2023 Hemoglobin A1c in Blood HGB A1C Lab Routine Diabetes mellitus without complication (HCC) Expected: 06/15/2023, Expires: 08/15/2023 [facility] Work Phone: Comment on above: Expected: 06/15/2023, Expires: 4 Start: 06-08-2023 Hemoglobin A1c/Hemoglobin.total in Blood HBA1C [facility] Start: 01-31-2023 Covid-19 Vaccine () Covid-19 Vaccine () [facility] Start: 01-31-2023 Influenza vaccination [facility] Start: 12-19-2022 ANNUAL PCP TEAM CHRONIC DISEASE VISIT ANNUAL PCP TEAM CHRONIC DISEASE VISIT [facility] Start: 12-19-2022 Hepatitis B screening URINE ALBUMIN:CREATININE RATIO [facility] Start: 12-14-2022 Hepatitis B surface antibody level LDL CHOLESTEROL [facility] Start: 12-08-2022 Hemoglobin A1c/Hemoglobin.total in Blood HBA1C [facility] Start: 11-19-2022 HPV TESTING HPV TESTING [facility] Start: 11-19-2022 PAP TESTING PAP TESTING [facility] Start: 11-19-2022 Screening for malignant neoplasm of cervix [facility] Start: 06-21-2022 End: 08-21-2022 Carcinoembryonic Ag [Mass/volume] in Serum or Plasma CEA BLD Lab Routine Malignant neoplasm of colon, unspecified part of colon (HCC) Expected: 06/21/2022, Expires: 08/21/2022 [facility] Work Phone: Comment on above: Expected: 06/21/2022, Expires: 3 Start: 06-21-2022 End: 08-21-2022 Hemoglobin A1c in Blood HGB A1C Lab Routine Diabetes mellitus without complication (HCC) Expected: 06/21/2022, Expires: 08/21/2022 [facility] Work Phone: Comment on above: Expected: 06/21/2022, Expires: 3 Start: 06-21-2022 Hemoglobin A1c/Hemoglobin.total in Blood HBA1C [facility] Start: 06-20-2022 3 comp foot exam completed DIABETIC FOOT EXAM [facility] Start: 06-20-2022 ANNUAL PCP TEAM CHRONIC DISEASE VISIT ANNUAL PCP TEAM CHRONIC DISEASE VISIT [facility] Start: 06-20-2022 BP CONTROLLED (<130/80) BP CONTROLLED (<130/80) [facility] Start: 06-08-2022 Hepatitis B surface antibody level LDL CHOLESTEROL [facility] Start: 06-02-2022 DEPRESSION ASSESSMENT DEPRESSION ASSESSMENT [facility] Start: 02-21-2022 Glaucoma screening Dilated Retinal Exam [facility] Start: 02-21-2022 Hepatitis C antibody, confirmatory test DILATED RETINAL EXAM [facility] Start: 01-31-2022 Influenza vaccination INFLUENZA (#1) [facility] Start: 12-19-2021 End: 02-18-2022 ALBUMIN/CREAT RATIO RND UR [facility] Work Phone: Comment on above: Expected: 12/19/2021, Expires: 2 Start: 12-19-2021 End: 02-18-2022 CBC W Auto Differential panel - Blood [facility] Work Phone: Comment on above: Expected: 12/19/2021, Expires: 2 Start: 12-19-2021 End: 02-18-2022 Comprehensive metabolic 2000 panel - Serum or Plasma [facility] Work Phone: Comment on above: Expected: 12/19/2021, Expires: 2 Start: 12-19-2021 End: 02-18-2022 Hemoglobin A1c in Blood [facility] Work Phone: Comment on above: Expected: 12/19/2021, Expires: 2 Start: 12-09-2021 Hepatitis B screening URINE ALBUMIN:CREATININE RATIO [facility] Start: 12-06-2021 Hemoglobin A1c/Hemoglobin.total in Blood HBA1C [facility] Start: 09-12-2021 COVID-19 VACCINE (4 - Booster for Moderna series) COVID-19 VACCINE (4 - Booster for Moderna series) [facility] Start: 03-06-2021 Mammography MAMMOGRAM [facility] Start: 2018 SHINGRIX VACCINE (1 of 2) SHINGRIX VACCINE (1 of 2) [facility] Start: 2013 COLOGUARD (FIT-DNA) COLOGUARD (FIT-DNA) [facility] Start: [address] COLONOGRAPHY [facility] Start: 2013 FECAL OCCULT BLOOD FECAL OCCULT BLOOD [facility] Start: 2013 Screening for malignant neoplasm of colon [facility] Start: 2013 SIGMOIDOSCOPY SIGMOIDOSCOPY [facility] Start: 1987 HEPATITIS B (1 of 3 - Risk 3-dose series) HEPATITIS B (1 of 3 - Risk 3-dose series) [facility] Start: 1987 Urine microalbumin profile [facility] Start: 1986 Anxiety Screening Anxiety Screening [facility] Start: 1986 BP CONTROLLED (<130/80) BP CONTROLLED (<130/80) [facility] Start: 1986 Depression Screening Depression Screening [facility] Start: 1986 HEPATITIS C SCREENING HEPATITIS C SCREENING [facility] Start: 1986 HIV SCREENING HIV SCREENING [facility] Start: 1974 PNEUMOCOCCAL (1 - PCV) PNEUMOCOCCAL (1 - PCV) [facility] Start: 1974 Pneumococcal vaccination Pneumococcal Vaccine (1 of 2 - PCV) [facility] Start: 1968 HEPATITIS B (1 of 3 - 3-dose series) HEPATITIS B (1 of 3 - 3-dose series) [facility] End: 10-01-2024 ECG COMPLETE ECG COMPLETE ECG Routine Class 2 severe obesity with serious comorbidity and body mass index (BMI) of 35.0 to 35.9 in adult, unspecified obesity type (HCC) 1 Occurrences starting 10/02/2023 until 10/01/2024 [facility] Comment on above: 1 Occurrences starting 10/02/2023 until 10/01/2024 End: 10-19-2024 EGD DIAGNOSTIC EGD DIAGNOSTIC Endoscopy Routine Class 2 severe obesity with serious comorbidity and body mass index (BMI) of 35.0 to 35.9 in adult, unspecified obesity type (HCC) 1 Occurrences starting 10/21/2023 until 10/19/2024 [facility] Work Phone: Comment on above: 1 Occurrences starting 10/21/2023 until 10/19/2024 End: 10-01-2024 HOME SLEEP APNEA TEST (HSAT) HOME SLEEP APNEA TEST (HSAT) Procedures Routine Class 2 severe obesity with serious comorbidity and body mass index (BMI) of 35.0 to 35.9 in adult, unspecified obesity type (HCC) 1 Occurrences starting 10/02/2023 until 10/01/2024 [facility] Comment on above: 1 Occurrences starting 10/02/2023 until 10/01/2024 Laps gstr rstcv px w /byp myrtle-en-y limb <150 cm LAPAROSCOPIC GASTRIC RESTRICTIVE SURG W/ BYPASS & MYRTLE-EN-Y 150CM OR LESS Obesity, Class II, BMI 35-39.9 FV OR MG Breast Screening GUICHO SCREENIN G Radiology Routine Screening breast examination 09/05/2023 9:33 AM EDT [facility] Work Phone: End: 12-28-2022 Screening mammography bi 2-view breast inc cad GUICHO SCREENING Radiology Routine Encounter for screening mammogram for breast cancer 1 Occurrences starting 11/28/2021 until 12/28/2022 [facility] Work Phone: Comment on above: 1 Occurrences starting 11/28/2021 until 12/28/2022 SURGICAL PATHOLOGY [facility] Work Phone: Comment on above: Release Upon Ordering for 1 Occurrences starting 11/13/2023, 1 completed End: 10-31-2024 US Abdomen RUQ US ABD RIGHT UPPER QUADRANT Radiology Routine Class 2 severe obesity with serious comorbidity and body mass index (BMI) of 35.0 to 35.9 in adult, unspecified obesity type (HCC) 1 Occurrences starting 10/02/2023 until 10/31/2024 [facility] Comment on above: 1 Occurrences starting 10/02/2023 until 10/31/2024 US Abdomen RUQ US ABD RIGHT UPP ER QUADRANT Radiology Routine Class 2 severe obesity with serious comorbidity and body mass index (BMI) of 35.0 to 35.9 in adult, unspecified obesity type (HCC) 10/17/2023 10:50 AM EDT [facility] Work Phone: End: 10-31-2024 XR Chest PA and Lateral XR CHEST 2V FRONTAL/LAT Radiology Routine Class 2 severe obesity with serious comorbidity and body mass index (BMI) of 35.0 to 35.9 in adult, unspecified obesity type (HCC) 1 Occurrences starting 10/02/2023 until 10/31/2024 [facility] Comment on above: 1 Occurrences starting 10/02/2023 until 10/31/2024 [facility] Immunizations Immunization Date Immunization Notes Care Provider Bernard huff 06-13-2023 COVID-19 vaccine, ag e 12+ yr, 2022- season (PFIZER-BIONTECH) LORY Monroy PA-C Work Phone: [facility] 06-13-2023 influenza, injectabl e, quadrivalent, contains preservative LORY Monroy PA-C Work Phone: [facility] 06-13-2023 influenza virus vacc ine, unspecified formulation Luis Staley MD Work Phone: [facility] 06-17-2022 COVID-19 booster vaccine, age 12+ yr, bivalent (PFIZER-BIONTECH) Luis Staley MD Work Phone: [facility] 06-17-2022 influenza, injectabl e, quadrivalent, contains preservative Luis Staley MD Work Phone: [facility] 06-17-2022 influenza virus vacc ine, unspecified formulation Screen Wstr [facility] 09-07-2020 COVID-19 vaccine, fu ll dose (MODERNA) Luis Staley MD Work Phone: [facility] 08-11-2020 COVID-19 vaccine, fu ll dose (MODERNA) Luis Staley MD Work Phone: [facility] Payers Date Payer Category Payer Private Health Insurance [facility] [id number] 2022-Present [phone] [address] [address] [place] [address] PPO [id number] 2022 Unknown [id number] 2021 Unknown MMO [employer] [id number] 2021-Present [phone] [address] [place] [address] PPO [id number] 2018 Unknown MMO MMO [employer] [id number] 2018-Present [phone] [address] [place] [address] PPO [id number] 2018 Unknown MMO MMO [employer] [id number] 2018-Present [phone] [address] [place] [address] PPO [id number] 2018 Unknown [id number] Social History Date Type Detail Facility Start: 06-17-2022 Tobacco smoking stat [facility] Never smoked tobacco [facility] Start: 06-20-2021 End: 10-07-2023 Alcohol intake Current drinker of alcohol (finding) [facility] Start: 06-20-2021 End: 06-11-2022 History SDOH Alcohol Frequency 2 [facility] Start: 06-20-2021 End: 06-11-2022 History SDOH Alcohol Std Drinks 1 [facility] Start: 06-20-2021 End: 06-11-2022 History SDOH Social Connections Phone 5 [facility] Start: 12-04-2019 End: 06-11-2022 History SDOH Social Connections Meetings 3 [facility] Start: 12-03-2019 Education 17 [facility] Start: 1970 Sex Assigned At Female C [facility] Start: 12-09-2021 End: 12-19-2021 Exposure to SARS-CoV-2 (event) Not sure [facility] Start: 06-17-2022 Tobacco use and exposure Smoke less tobacco non-user [facility] Start: 06-11-2022 History SDOH Social Connections Rast[employer] 98 [facility] Start: 06-10-2022 End: 12-13-2022 History of Social function [facility] Start: 06-10-2022 End: 12-13-2022 Social connection and isolation panel [facility] How often do you att end latter-day or advent services? Patient refused [facility] Do you belong to any clubs or organizations such as latter-day groups, unions, fraSchedulize or athletic groups, or school groups? Yes [facility] Are you now , , , , never or living with a partner? [facility] How often to you hav e a drink containing alcohol? Monthly or less [facility] How many standard dr inks containing alcohol do you have on a typical day? 1 or 2 [facility] How often do you hav e 6 or more drinks on 1 occasion? Never [facility] Do you feel stress - tense, restless, nervous, or anxious, or unable to sleep at night because your mind is troubled all the time - these days [OSQ] Only a little [facility] (I/We) worried wheth er (my/our) food would run out before (I/we) got money to buy more. Never true [facility] In the past 12 month s, was there a time when you were not able to pay the mortgage or rent on time? No [facility] Start: 12-03-2019 Gender identity Identifies as female gender (finding) [facility] Start: 12-03-2019 Sexual orientation Heterosexual (alin barriga) [facility] Medical Equipment Procedure Code Equipment Code Equipment Origin al Text Equipment Identifier Dates [id number], [id number] Start: 03-06-2020 End: 12-13-2022 Comment on above: Use with blood gluco se test once daily, Insulin Dep? No Use with blood gluco se test once daily. Insulin Dep? Yes Clinical Notes 10-03-2010 to 02-04-2024 Telephone Encounter - Svetlana Nogueira LPN - 02/04/2024 11:09 AM EDTTelephone Encounter - Svetlana Nogueira LPN - 02/04/2024 11:09 AM AVRILAlanis Morrow Francesco - 01/08/2024 3:59 PM EDTPatient Instructions Note Date & Type Note [facility] 02-04-2024 Telephone encounter Note Prescription Refill Information The patient has been identified by name and date of : Yes Caregiver verified no other encounters exist for this prescription request: Yes Caregiver confirmed with patient/requestor that no other refills are due, in the near future, with this provider at this time: Yes 12/05/23 The last office visit in the department: yes Does the patient have a future office visit with this provider/department: Yes Requested Prescriptions Pending Prescriptions Disp Refills atorvastatin (LIPITOR) 40 mg tablet 90 tablet 3 Sig: Take 1 tablet by mouth daily at bedtime. For cholesterol. lisinopril (ZESTRIL) 20 mg tablet 90 tablet 1 Sig: Take 1 tablet by mouth once daily. Svetlana Nogueira LPN February 04, 2024 11:10 AM [facility] 02-04-2024 Miscellaneous Notes Prescription Refill Information The patient has been identified by name and date of : Yes Caregiver verified no other encounters exist for this prescription request: Yes Caregiver confirmed with patient/requestor that no other refills are due, in the near future, with this provider at this time: Yes 12/05/23 The last office visit in the department: yes Does the patient have a future office visit with this provider/department: Yes Requested Prescriptions Pending Prescriptions Disp Refills atorvastatin (LIPITOR) 40 mg tablet 90 tablet 3 Sig: Take 1 tablet by mouth daily at bedtime. For cholesterol. lisinopril (ZESTRIL) 20 mg tablet 90 tablet 1 Sig: Take 1 tablet by mouth once daily. Svetlana Nogueira LPN February 04, 2024 11:10 AM documented in this encounter [facility] 01-08-2024 Note HNO ID: [id number] Author: ?, ?, ? Service: ? Author Type: ? Type: Progress Notes Filed: 01/08/2024 16:00 Note Text: 02/15/2024 is a pseudo date for insurance approval purposes only. This is not an actual procedure date. Alanis Avitia [facility] 01-08-2024 History of Presen t illness Narrative 02/15/2024 is a pseudo date for insurance approval purposes only. This is not an actual procedure date. Alanis Avitia documented in this encounter [facility] 12-08-2023 Note HNO ID: [id number] Author: JESUS ORTIZ MD Service: ? Author Type: Physician Type: Progress Notes Filed: 12/08/2023 10:05 Note Text: [facility] Sleep Disorders Center New Patient Evaluation PATIENT NAME: Angelique Wynne DATE OF SERVICE: December 08, 2023 CONSULTING PROVIDER: Rachel Mcmillan [address] [facility] [address] REASON FOR CONSULT: Rachel Mcmillan sends the patient for an opinion about Home Sleep Study results. My findings and recommendations will be transmitted electronically via shared medical record to the consulting provider. HPI: Angelique Wynne is a 53 year old female. Sleep-related history: Mrs. Wynne has been snoring for 5 years, but she feels mostly refreshed during the day. She does not wake up frequently during the night, and she gets about 7 hours of sleep per night. SLEEP-WAKE SCHEDULE She is a self-described morning person. Bedtime: 10 PM. She does not have a hard time falling asleep. Wake time: 5 AM, with an alarm. After falling asleep: she wakes up 1 time(s) per night, because of the need to urinate. On weekends, she maintains the same sleep schedule. Average total sleep time (in a 24 hour period): 7 hours. SLEEP-RELATED DETAILS Preferred sleep position: side Breathing disturbances and other behaviors during sleep: snoring. Bruxism: No GERD or aspiration: No Waking up with heart pounding or racing: No Anxiety or rumination: No She does not report having an urge to move the legs in the evening (when resting) that is accompanied or caused by uncomfortable and/or unpleasant sensations in the legs. She has not been told that she has leg kicking during sleep. She denies any history of parasomnias. Daytime sleepiness is not a problem. She does not report sleep paralysis or sleep-related hallucinations or cataplexy. WAKE-RELATED DETAILS She works but is not a shift worker. She does not have difficulty with memory or concentration. She denies falling asleep or dozing off when driving. She does not take naps. She does not drink caffeinated beverages. There has not been a recent change in weight. Patient Questionnaires Sleep Scores 12/01/2023 Sleep Questions Reason for visit: Sleep apnea On average, hours of sleep in 24 hours: 7 Accidents or near accidents due to drowsy drivin 12/01/2023 PROMIS CAT Sleep Disturbance PROMIS Sleep Disturbance T-Score 44 (within normal limits) PROMIS Sleep Disturbance Percentile 73 12/01/2023 PHQ-9 Score 0 09/30/2023 PROMIS Global Health - (T-Scores - the mean of general population = 50. Five points is a clinically meaningful difference.) Physical T-Score 50.8 Mental T-Score 53.3 [place] Sleepiness Scale Sitting and Reading? no chance of dozing (0) Watching TV? no chance of dozing (0) Sitting inactive in a public place (e.g a theater or a meeting) no chance of dozing (0) As a passenger in a car for an hour without a break? no chance of dozing (0) Lying down to rest in the afternoon when circumstances permit? no chance of dozing (0) Sitting and talking to someone? no chance of dozing (0) Sitting quietly after lunch without alcohol? no chance of dozing (0) In a car, while stopped for a few minutes in traffic? no chance of dozing (0) Total Score NORMAL (0) PAST TREATMENTS: None PRIOR SLEEP STUDIES: A Home Sleep Test (HST) performed on 11/06/2023 revealed an AHI of 16.3; supine index of 12.4; and a minimum oxygen saturation of 81%. 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 Other and unspecified hyperlipidemia Personal history of malignant neoplasm of rectum, rectosigmoid junction, and anus PAST SURGICAL HISTORY Procedure Laterality Date COLECTOMY PARTIAL W/ANASTOMOSIS low anterior resection 31ceea anastamosis COLON SURGERY HX COLONOSCOPY FLX DX W/COLLJ SPEC WHEN PFRMD clean anastamosis COLONOSCOPY FLX DX W/COLLJ SPEC WHEN PFRMD 10/23/09, 11/05/11 clean anastamosis - recommend 3 year follow up COLONOSCOPY FLX DX W/COLLJ SPEC WHEN PFRMD 01/03/15 clean anastamosis - recommend 5 year follow up COLONOSCOPY FLX DX W/COLLJ SPEC WHEN PFRMD 01/06/2020 Colonoscopy COLONOSCOPY W/BIOPSY SINGLE/MULTIPLE 09/02/07 EGD TRANSORAL BIOPSY SINGLE/MULTIPLE 09/02/07 EGD TRANSORAL BIOPSY SINGLE/MULTIPLE INSJ TUNNELED CTR VAD W/SUBQ PORT AGE 5 YR/> 11/20/2007 Left Subclavian REMOVED PAST SURGICAL HISTORY OF 2004 needle biopsy of the left breast ACTIVE PROBLEM LIST Mixed Hyperlipidemia Essential Hypertension Esophagitis, Unspecified Acute Gastritis Without Mention of Hemorrhage Herpes Simplex Class 2 Severe Obesity With Serious Comorbidity and Body Mass In (more content not included)... [facility] 12-08-2023 History of Presen t illness Narrative Images from the original note were not included. [facility] New Patient Evaluation PATIENT NAME: Angelique Wynne DATE OF SERVICE: December 08, 2023 CONSULTING PROVIDER: Rachel Mcmillan [id number] [facility] [id number] REASON FOR CONSULT: Rachel Mcmillan sends the patient for an opinion about Home Sleep Study results. My findings and recommendations will be transmitted electronically via shared medical record to the consulting provider. HPI: Angelique Wynne is a 53 year old female. Sleep-related history: Mrs. Wynne has been snoring for 5 years, but she feels mostly refreshed during the day. She does not wake up frequently during the night, and she gets about 7 hours of sleep per night. SLEEP-WAKE SCHEDULE She is a self-described morning person. Bedtime: 10 PM. She does not have a hard time falling asleep. Wake time: 5 AM, with an alarm. After falling asleep: she wakes up 1 time(s) per night, because of the need to urinate. On weekends, she maintains the same sleep schedule. Average total sleep time (in a 24 hour period): 7 hours. SLEEP-RELATED DETAILS Preferred sleep position: side Breathing disturbances and other behaviors during sleep: snoring. Bruxism: No GERD or aspiration: No Waking up with heart pounding or racing: No Anxiety or rumination: No She does not report having an urge to move the legs in the evening (when resting) that is accompanied or caused by uncomfortable and/or unpleasant sensations in the legs. She has not been told that she has leg kicking during sleep. She denies any history of parasomnias. Daytime sleepiness is not a problem. She does not report sleep paralysis or sleep-related hallucinations or cataplexy. WAKE-RELATED DETAILS She works but is not a shift worker. She does not have difficulty with memory or concentration. She denies falling asleep or dozing off when driving. She does not take naps. She does not drink caffeinated beverages. There has not been a recent change in weight. Patient Questionnaires Sleep Scores 12/01/2023 Sleep Questions Reason for visit: Sleep apnea On average, hours of sleep in 24 hours: 7 Accidents or near accidents due to drowsy drivin 12/01/2023 PROMIS CAT Sleep Disturbance PROMIS Sleep Disturbance T-Score 44 (within normal limits) PROMIS Sleep Disturbance Percentile 73 12/01/2023 PHQ-9 Score 0 09/30/2023 PROMIS Global Health - (T-Scores - the mean of general population = 50. Five points is a clinically meaningful difference.) Physical T-Score 50.8 Mental T-Score 53.3 [place] Sleepiness Scale Sitting and Reading? no chance of dozing (0) Watching TV? no chance of dozing (0) Sitting inactive in a public place (e.g a theater or a meeting) no chance of dozing (0) As a passenger in a car for an hour without a break? no chance of dozing (0) Lying down to rest in the afternoon when circumstances permit? no chance of dozing (0) Sitting and talking to someone? no chance of dozing (0) Sitting quietly after lunch without alcohol? no chance of dozing (0) In a car, while stopped for a few minutes in traffic? no chance of dozing (0) Total Score NORMAL (0) PAST TREATMENTS: None PRIOR SLEEP STUDIES: A Home Sleep Test (HST) performed on 11/06/2023 revealed an AHI of 16.3; supine index of 12.4; and a minimum oxygen saturation of 81%. 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 Other and unspecified hyperlipidemia Personal history of malignant neoplasm of rectum, rectosigmoid junction, and anus PAST SURGICAL HISTORY Procedure Laterality Date COLECTOMY PARTIAL W/ANASTOMOSIS low anterior resection 31ceea anastamosis COLON SURGERY HX COLONOSCOPY FLX DX W/COLLJ SPEC WHEN PFRMD clean anastamosis COLONOSCOPY FLX DX W/COLLJ SPEC WHEN PFRMD 10/23/09, 11/05/11 clean anastamosis - recommend 3 year follow up COLONOSCOPY FLX DX W/COLLJ SPEC WHEN PFRMD 01/03/15 clean anastamosis - recommend 5 year follow up COLONOSCOPY FLX DX W/COLLJ SPEC WHEN PFRMD 01/06/2020 Colonoscopy COLONOSCOPY W/BIOPSY SINGLE/MULTIPLE 09/02/07 EGD TRANSORAL BIOPSY SINGLE/MULTIPLE 09/02/07 EGD TRANSORAL BIOPSY SINGLE/MULTIPLE INSJ TUNNELED CTR VAD W/SUBQ PORT AGE 5 YR/> 11/20/2007 Left Subclavian REMOVED PAST SURGICAL HISTORY OF 2004 needle biopsy of the left breast ACTIVE PROBLEM LIST Mixed Hyperlipidemia Essential Hypertension Esophagitis, Unspecified Acute Gastritis Without Mention of Hemorrhage Herpes Simplex Class 2 Severe Obesity With Serious Comorbidity and Body Mass Index (Bmi) of 35.0 to 35.9 in Adult (Hcc) Diabetes Mellitus Without Complication (Hcc) Vitamin D Deficiency Personal History of Rectal Cancer Obesity, Class II, Bmi 35-39.9 Allergies As of Date: 12/08/2023 Allergen Noted Reaction OXALIPLATIN 02/22/2008 Anaphylaxis Fully Assessed 12/08/2023 CURRENT MEDICATIONS: vitamin B complex (B COMPLEX ORAL) Take by mouth once daily. semaglutide (OZEMPIC) 0.25 mg or 0.5 mg (2 mg/3 mL) pen Inject 0.5 mg subcutaneously one time a week. lisinopril (ZESTRIL) 20 mg tablet Take 1 tablet by mouth once daily. Lancets lancets Use with blood glucose test once daily. Insulin Dep? Yes blood sugar diagnostic test strip Use with blood glucose test once daily, Insulin Dep? No atorvastatin (LIPITOR) 40 mg tablet Take 1 tablet by mouth daily at bedtime. For cholesterol. Blood-Glucose Meter Test One time a day. Blood Glucose Control, Normal soln Use as directed Prior Hypersomnia/Narcolepsy Medications (20 years) No data to display Prior RLS Medications (last 20 years) 10/05/2007 07:49 RLS Medications morphine sulfate, 0.9 % sodium chloride INTRAVENOUS, CONTINUOUS, Starting on María 10/01/07 at 2000, Until 10/05/07 at 0749 DOSIN. Basal Rate: 0 mg/hour (Continuous Infusion) 2. Demand Bolus Dose: 1 mg (Patient-Activated Dose) 3. Bolus Interval: 6 minutes/ 10 doses/hour Goal pain score is </= 4 or patient in comfortable Call primary pain service if pain score remains > 4 after 30 minutes or patient is uncomfortable. HOLD DOSE IS RESPIRATORY RATE <12 OR SEDATION SCORE >2 Maintain an IV at KVO -Discontinued No sig morphine sulfate 2-4 mg, INTRAVENOUS, EVERY 6 HOURS NEEDED, Starting on María 10/01/07 at 1950, Until 10/05/07 at 0749, pain May give 2-4 mg every 15 minutes for 3 doses. Sequence may be repeated every 6 hours as needed.- Timing of clinician doses should be counted as 6 hours after the 1st dose was given. Goal pain score </= 4 or patient is comfortable. Call primary service if pain score remains > 5 15 minutes after the 3rd bolus or if the patient is uncomfortable. Hold dose if respiratory rate is < 12 or sedation score > 2 and call PMS - Document pain scores q4h -Discontinued No sig Details Hospital medication Prior Insomnia Medications (last 20 years) 11/13/2023 Insomnia Medications midazolam HCl 1-5 mg, INTRAVENOUS, DIRECTED, Starting on María 11/13/23 at 0930, Until María 11/13/23 at 1329 DOSING DIRECTED BY PHYSICIAN FOR PROCEDURAL SEDATION ONLY Intraprocedure -Rx End Details Hospital medication Review of Systems SOCIAL HISTORY: Social History Tobacco Use Smoking status: Never Smokeless tobacco: Never Vaping Use Vaping Use: Never used Substance Use Topics Alcohol use: Yes Comment: Rarely Drug use: No FAMILY HISTORY: FAMILY HISTORY Adopted: Yes Problem Relation Age of Onset Diabetes Father Heart Father 62 from [place] Hypertension Father Heart Sister cancer--possible heart attack with chemo other (Crohn's Disease) Daughter There is no family history of sleep disorders. PHYSICAL EXAMINATION: General appearance: NAD Mental status: awake and alert Constitutional: Well groomed Skin: Dry and intact Neuro: Speech fluent OROPHARYNX: normal O/P opening, normal hard palate, long soft palate, normal tongue, 1+ tonsils, thin uvula, Bite normal IMPRESSION/PLAN: Obstructive Sleep Apnea - Will start Auto CPAP 5-18 cmH2O with a comfortable mask . - I will have a prescription sent to a [employer]) company - [employer] [phone] who will be calling you in the next 1-2 weeks or so. Please call them directly or us if you do not hear from them in this time frame. - You should be eligible for new supplies approximately every 3-6 months, depending on your insurance coverage. - If your mask doesn't fit well, call the [employer] company before 30 days are up to get a new mask without an additional charge. - Insurance requires regular usage and periodic office follow ups for PAP therapy, to continue to cover supplies. - Follow up in 3 months in the office. Recommend scheduling this appointment now to ensure the best time for you. Jesus Ortiz MD I spent a total of 54 minutes on the date of the service, which included preparing to see the patient, [id number] patient care, completing clinical documentation, performing a medically appropriate examination, counseling and educating the patient/family/caregiver, ordering medications, tests, or procedures, communicating results to the patient/family/caregiver, and care coordination (not separately reported). Jesus Ortiz MD documented in this encounter [facility] 12-05-2023 Note HNO ID: [id number] Author: LUIS STALEY MD Service: ? Author Type: Physician Type: Progress Notes Filed: 12/05/2023 10:28 Note Text: Patient presents with: 6 Month Exam HPI: Patient presents today for office visit for follow up. Diabetes: Taking Trulicity 4.5 mg weekly for her diabetes. Has had some trouble getting it. Not checking glucose at home. HYPERLIPIDEMIA: Patient is taking medications: Yes. Patient is watching diet: Yes. Patient denies myalgias: Yes. Patient denies gi upset: Yes HTN: Patient is compliant with meds Yes Monitors bp at home: Yes. Denies side effects: Yes. Chest pain: No. Dyspnea: No. Edema: No. Palpitations: No. Syncope: No. Headache: No. Dizziness: No. Getting bypass surgery at some point. Latest Ref Rn 12/01/2023 WBC 3.70 - 11.00 k/uL 8.63 RBC 3.90 - 5.20 m/uL 4.86 Hemoglobin 11.5 - 15.5 g/dL 13.6 Hematocrit 36.0 - 46.0 % 42.1 MCV 80.0 - 100.0 fL 86.6 MCH 26.0 - 34.0 pg 28.0 MCHC 30.5 - 36.0 g/dL 32.3 RDW-CV 11.5 - 15.0 % 12.4 Platelet Count 150 - 400 k/uL 273 MPV 9.0 - 12.7 fL 11.6 Neut% % 61.8 Abs Neut (ANC) 1.45 - 7.50 k/uL 5.33 Lymph% % 29.1 Abs Lymph 1.00 - 4.00 k/uL 2.51 Broome% % 5.2 Abs Broome <0.87 k/uL 0.45 Eosin% % 2.9 Abs Eosin <0.46 k/uL 0.25 Baso% % 0.7 Abs Baso <0.11 k/uL 0.06 Immature Gran % % 0.3 IMMATURE GRANS (ABS) <0.10 k/uL 0.03 NRBC /100 WBC 0.0 Absolute nRBC <0.01 k/uL <0.01 DTYPE Auto Protein, Total 6.3 - 8.0 g/dL 6.8 Albumin 3.9 - 4.9 g/dL 4.3 Calcium 8.5 - 10.2 mg/dL 10.2 Bilirubin, Total 0.2 - 1.3 mg/dL 0.3 Alkaline Phosphatase 34 - 123 U/L 146 (H) AST 13 - 35 U/L 25 ALT 7 - 38 U/L 25 Glucose 74 - 99 mg/dL 91 BUN 7 - 21 mg/dL 14 Creatinine 0.58 - 0.96 mg/dL 0.73 Sodium 136 - 144 mmol/L 141 Potassium 3.7 - 5.1 mmol/L 4.2 Chloride 98 - 107 mmol/L 106 CO2 22 - 30 mmol/L 22 Anion Gap 8 - 15 mmol/L 13 eGFR >=60 mL/min/1.73m? 97 Cholesterol, Total <200 mg/dL 111 Triglyceride <150 mg/dL 145 HDL Cholesterol >39 mg/dL 55 Non HDL Cholesterol <130 mg/dL 56 Fasting Time hrs 12 VLDL Cholesterol <30 mg/dL 29 TC:HDL Ratio <5.10 2.02 LDL Cholesterol <100 mg/dL 27 LDL:HDL Ratio <2.54 0.49 Creatinine, Ur Random (UCRR) 20.0 - 300.0 mg/dL 121.4 Albumin, Urine Random mg/L <12.0 Albumin/Creat Ratio <30 mg/g <10 Hemoglobin A1C 4.3 - 5.6 % 5.9 (H) Estimated Average Glucose mg/dL 123 CEA <=2.9 ng/mL 0.6 Legend: (H) High MEDICATIONS: Current Outpatient Medications Medication Sig vitamin B complex (B COMPLEX ORAL) Take by mouth once daily. lisinopril (ZESTRIL) 20 mg tablet Take 1 tablet by mouth once daily. dulaglutide (TRULICITY) 4.5 mg/0.5 mL pen injector Inject 4.5 mg subcutaneously one time a week. atorvastatin (LIPITOR) 40 mg tablet Take 1 tablet by mouth daily at bedtime. For cholesterol. Lancets lancets Use with blood glucose test once daily. Insulin Dep? Yes blood sugar diagnostic test strip Use with blood glucose test once daily, Insulin Dep? No Blood-Glucose Meter Test One time a day. Blood Glucose Control, Normal soln Use as directed No current facility-administered medications for this visit. 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 Other and unspecified hyperlipidemia Personal history of malignant neoplasm of rectum, rectosigmoid junction, and anus PAST SURGICAL HISTORY Procedure Laterality Date COLECTOMY PARTIAL W/ANASTOMOSIS 5/1/8 low anterior resection 31ceea anastamosis COLON SURGERY HX COLONOSCOPY FLX DX W/COLLJ SPEC WHEN PFRMD clean anastamosis COLONOSCOPY FLX DX W/COLLJ SPEC WHEN PFRMD 10/23/09, 11/05/11 clean anastamosis - recommend 3 year follow up COLONOSCOPY FLX DX W/COLLJ SPEC WHEN PFRMD 01/03/15 clean anastamosis - recommend 5 year follow up COLONOSCOPY FLX DX W/COLLJ SPEC WHEN PFRMD 01/06/2020 Colonoscopy COLONOSCOPY W/BIOPSY SINGLE/MULTIPLE 09/02/07 EGD TRANSORAL BIOPSY SINGLE/MULTIPLE 09/02/07 EGD TRANSORAL BIOPSY SINGLE/MULTIPLE INSJ TUNNELED CTR VAD W/SUBQ PORT AGE 5 YR/> 11/20/2007 Left Subclavian REMOVED PAST SURGICAL HISTORY OF 2004 needle biopsy of the left breast FAMILY HISTORY Adopted: Yes Problem Relation Age of Onset Diabetes Father Heart Father 62 [place] Hypertension Father Heart Sister cancer--possible heart attack with chemo other (Crohn's Disease) Daughter Social History Tobacco Use Smoking status: Never Smokeless tobacco: Never Vaping Use Vaping Use: Never used Substance Use Topics Alcohol use: Yes Comment: Rarely Drug use: No Reviewed current medications, allergies, past medical history, (more content not included)... [facility] 12-05-2023 History of Presen t illness Narrative Patient presents with: 6 Month Exam HPI: Patient presents today for office visit for follow up. Diabetes: Taking Trulicity 4.5 mg weekly for her diabetes. Has had some trouble getting it. Not checking glucose at home. HYPERLIPIDEMIA: Patient is taking medications: Yes. Patient is watching diet: Yes. Patient denies myalgias: Yes. Patient denies gi upset: Yes HTN: Patient is compliant with meds Yes Monitors bp at home: Yes. Denies side effects: Yes. Chest pain: No. Dyspnea: No. Edema: No. Palpitations: No. Syncope: No. Headache: No. Dizziness: No. Getting bypass surgery at some point. Latest Ref Rng 12/01/2023 WBC 3.70 - 11.00 k/uL 8.63 RBC 3.90 - 5.20 m/uL 4.86 Hemoglobin 11.5 - 15.5 g/dL 13.6 Hematocrit 36.0 - 46.0 % 42.1 MCV 80.0 - 100.0 fL 86.6 MCH 26.0 - 34.0 pg 28.0 MCHC 30.5 - 36.0 g/dL 32.3 RDW-CV 11.5 - 15.0 % 12.4 Platelet Count 150 - 400 k/uL 273 MPV 9.0 - 12.7 fL 11.6 Neut% % 61.8 Abs Neut (ANC) 1.45 - 7.50 k/uL 5.33 Lymph% % 29.1 Abs Lymph 1.00 - 4.00 k/uL 2.51 Broome% % 5.2 Abs [place] <0.87 k/uL 0.45 Eosin% % 2.9 Abs Eosin <0.46 k/uL 0.25 Baso% % 0.7 Abs Baso <0.11 k/uL 0.06 Immature Gran % % 0.3 IMMATURE GRANS (ABS) <0.10 k/uL 0.03 NRBC /100 WBC 0.0 Absolute nRBC <0.01 k/uL <0.01 DTYPE Auto Protein, Total 6.3 - 8.0 g/dL 6.8 Albumin 3.9 - 4.9 g/dL 4.3 Calcium 8.5 - 10.2 mg/dL 10.2 Bilirubin, Total 0.2 - 1.3 mg/dL 0.3 Alkaline Phosphatase 34 - 123 U/L 146 (H) AST 13 - 35 U/L 25 ALT 7 - 38 U/L 25 Glucose 74 - 99 mg/dL 91 BUN 7 - 21 mg/dL 14 Creatinine 0.58 - 0.96 mg/dL 0.73 Sodium 136 - 144 mmol/L 141 Potassium 3.7 - 5.1 mmol/L 4.2 Chloride 98 - 107 mmol/L 106 CO2 22 - 30 mmol/L 22 Anion Gap 8 - 15 mmol/L 13 eGFR >=60 mL/min/1.73m 97 Cholesterol, Total <200 mg/dL 111 Triglyceride <150 mg/dL 145 HDL Cholesterol >39 mg/dL 55 Non HDL Cholesterol <130 mg/dL 56 Fasting Time hrs 12 VLDL Cholesterol <30 mg/dL 29 TC:HDL Ratio <5.10 2.02 LDL Cholesterol <100 mg/dL 27 LDL:HDL Ratio <2.54 0.49 Creatinine, Ur Random (UCRR) 20.0 - 300.0 mg/dL 121.4 Albumin, Urine Random mg/L <12.0 Albumin/Creat Ratio <30 mg/g <10 Hemoglobin A1C 4.3 - 5.6 % 5.9 (H) Estimated Average Glucose mg/dL 123 CEA <=2.9 ng/mL 0.6 Legend: (H) High MEDICATIONS: Current Outpatient Medications Medication Sig vitamin B complex (B COMPLEX ORAL) Take by mouth once daily. lisinopril (ZESTRIL) 20 mg tablet Take 1 tablet by mouth once daily. dulaglutide (TRULICITY) 4.5 mg/0.5 mL pen injector Inject 4.5 mg subcutaneously one time a week. atorvastatin (LIPITOR) 40 mg tablet Take 1 tablet by mouth daily at bedtime. For cholesterol. Lancets lancets Use with blood glucose test once daily. Insulin Dep? Yes blood sugar diagnostic test strip Use with blood glucose test once daily, Insulin Dep? No Blood-Glucose Meter Test One time a day. Blood Glucose Control, Normal soln Use as directed No current facility-administered medications for this visit. 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 Other and unspecified hyperlipidemia Personal history of malignant neoplasm of rectum, rectosigmoid junction, and anus PAST SURGICAL HISTORY Procedure Laterality Date COLECTOMY PARTIAL W/ANASTOMOSIS low anterior resection 31ceea anastamosis COLON SURGERY HX COLONOSCOPY FLX DX W/COLLJ SPEC WHEN PFRMD clean anastamosis COLONOSCOPY FLX DX W/COLLJ SPEC WHEN PFRMD 10/23/09, 11/05/11 clean anastamosis - recommend 3 year follow up COLONOSCOPY FLX DX W/COLLJ SPEC WHEN PFRMD 01/03/15 clean anastamosis - recommend 5 year follow up COLONOSCOPY FLX DX W/COLLJ SPEC WHEN PFRMD 01/06/2020 Colonoscopy COLONOSCOPY W/BIOPSY SINGLE/MULTIPLE 09/02/07 EGD TRANSORAL BIOPSY SINGLE/MULTIPLE 09/02/07 EGD TRANSORAL BIOPSY SINGLE/MULTIPLE INSJ TUNNELED CTR VAD W/SUBQ PORT AGE 5 YR/> 11/20/2007 Left Subclavian REMOVED PAST SURGICAL HISTORY OF 2004 needle biopsy of the left breast FAMILY HISTORY Adopted: Yes Problem Relation Age of Onset Diabetes Father Heart Father 62 [place] Hypertension Father Heart Sister cancer--possible heart attack with chemo other (Crohn's Disease) Daughter Social History Tobacco Use Smoking status: Never Smokeless tobacco: Never Vaping Use Vaping Use: Never used Substance Use Topics Alcohol use: Yes Comment: Rarely Drug use: No Reviewed current medications, allergies, past medical history, surgical history, family history and social history today. REVIEW OF SYSTEMS No gi or gu issues. All other reviewed and negative other than HPI. HEALTH MAINTENANCE: Reviewed health maintenance issues today and recommended the following in detail. BP Controlled (<130/80) Never done Dilated Retinal Exam -get eyes checked regularly Cervical Cancer Screening-reminded. VITALS: BP 118/75 Pulse 81 Wt 83.5 kg (184 lb) LMP 09/19/2017 SpO2 98% BMI 37.14 kg/m Last 4 Encounter Wt Readings: Date: Wt: 11/28/2023 81.7 kg (180 lb 3.2 oz) 11/06/2023 81.6 kg (180 lb) 10/21/2023 81.6 kg (180 lb) 10/02/2023 80.7 kg (178 lb) PHYSICAL EXAMINATION: General appearance: Well appearing, alert, in no acute distress, well-hydrated, well nourished. Skin: Skin color, texture, turgor normal, no suspicious rashes or lesions Head: Normocephalic, no masses, lesions, tenderness or abnormalities Lungs: Lungs clear to auscultation. No wheezing, rhonchi, rales Heart: RRR without murmur, gallop, or rubs. No ectopy Abdomen: Normal abdominal exam, Abdomen soft, non-tender. Bowel sounds normal. No masses, organomegaly Extremities: No deformities, edema, skin discoloration, clubbing or cyanosis. Good capillary refill. Musculoskeletal: No joint swelling, deformity, or tenderness ASSESSMENT/PLAN: 1. Mixed hyperlipidemia - ICD9: 272.2, ICD10: E78.2 (primary diagnosis) - Controlled - Continue current medications 2. Essential hypertension - ICD9: 401.9, ICD10: I10 - Controlled - Continue current medications 3. Diabetes mellitus without complication (HCC) - ICD9: 250.00, ICD10: E11.9 -chanbe forms. - SEMAGLUTIDE 0.25 MG OR 0.5 MG (2 MG/3 ML) SUBCUTANEOUS PEN INJECTOR 4. Class 2 severe obesity with serious comorbidity and body mass index (BMI) of 35.0 to 35.9 in adult, unspecified obesity type (HCC) - ICD9: 278.01, V85.35, ICD10: E66.01, Z68.35 - getting bypass. Luis Staley MD documented in this encounter [facility] 12-02-2023 Telephone encounter Note Patient informed and verbalized understanding. Luz Marina Leung MA [facility] 12-02-2023 Miscellaneous Notes Patient informed and verbalized understanding. Luz Marina Leung MA Labs are all ok. Only thing slightly abnormal is a mildly increased alk phos. A blood enzyme that can occur from a number of sources and may be a benign finding in many people. I would simply repeat it in a few weeks and break it down. documented in this encounter [facility] 12-02-2023 Telephone encounter Note Labs are all ok. Only thing slightly abnormal is a mildly increased alk phos. A blood enzyme that can occur from a number of sources and may be a benign finding in many people. I would simply repeat it in a few weeks and break it down. [facility] 11-28-[address] - 11/28/2023 9:13 AM EDT Please call [phone], option 5. Leave a message for the navigation team when you are finished with all clearances (nutrition, psychology, medical, surgeon) 1.Starting ~3 weeks after surgery take daily bariatric vitamins Some examples of vitamins/mineral companies: - Bariatric Fusion: 4 Complete Multivitamin chewables per day OR 1 Multivitamin capsule and 2802-6366 mg calcium citrate per day OR 2 Multivitamin soft chews per day + 3 calcium citrate soft chews + 1 iron soft chew per day www.[email or web address] - Procare Health: 1 Bariatric Multivitamin w/ iron (capsule or chewable) and 0092-0862 mg calcium citrate per day www.[email or web address].CoreTrace - Bariatric Choice: 1 Once Daily Bariatric Multivitamin capsule and 0698-8144 mg calcium citrate per day OR 4 All-in-One Bariatric Multivitamin chewables per day www.bariatricchoHow do you roll?.CoreTrace - Bariatric Advantage: 1 Ultra Solo multivitamin w/ iron (chewable or capsule) OR 2 chewable Advanced Multi EA w/ iron and 5225-5713 mg calcium citrate per day OR 2 Multi Chewy Bites and 3982-7346 mg calcium citrate and 45-60 mg iron per day www.bariatricadluciernaage.CoreTrace - Bariatric Pal: 1 Multivitamin One (chewable or capsule) and 6587-2467 mg calcium citrate per day OR 4 All-in-One Multivitamin chewables per day www.Wellfountbariatricpal.CoreTrace/colle ctions/bariatric-vitamins - Barilife: 1 Just One Bariatric Multivitamin w/ iron (chewable or capsule) and 8583-5527 mg calcium citrate per day www.Avante Logixx.CoreTrace - Barimelts: 2 Multivitamin w/ iron tablets and 8878-0821 mg calcium citrate per day www.Maui Fun CompanymelReDoc Software.CoreTrace 2. Protein goal: 68 grams protein/day 3. Fluid goal: 64oz per day water. (no calories, no caffeine, no carbonation, no alcohol) 4. Exercise goal: 150-250 minutes combination cardio/strength training/week 5. Practice mindful eating habits-take small portions, eat slowly, chew thoroughly 6. Start the full liquid diet (2) weeks prior to surgery using the approved protein shakes listed below, continue a minimum of 64 oz water per day during this time. No solid food. May have sugar free popsicle and sugar free jello -During the 2 week liquid diet before surgery include a daily Super B-Complex vitamin -Liquid diet protein shake options: 4.5 bottles Slim Fast Advanced Nutrition OR 5.5 packets Light Start Sealevel Breakfast Essentials mixed with 1% or skim milk OR 5 Atkins Protein Shakes (15 gm protein version) OR 4.5 bottles Glucose Controlled Boost OR 4.5 bottles OWYN (20 gm protein version) 7. Advance diet as tolerated after surgery. Use the Your Guide to Surgery for guidance and meal plans Nutrition Monitoring & Evaluation: 1-2 # weight loss per week prior to surgery Criteria: Weight check Need for Follow up: 2 weeks pre-op documented in this encounter [facility] 11-28-2023 History of Presen t illness Narrative AMBULATORY PATIENT EDUCATION NOTE- Shared Virtual Nutrition Group I have communicated my name and active licensure. The patient's identity and physical location were verified at the time of this visit. Either the patient or their legal player services representative has been informed of the risks and benefits of -- and alternatives to -- treatment through a remote evaluation and consents to proceed with the evaluation remotely. Patient reports weight (as measured by home scale) of 180 pounds. TOPIC: LIFE STYLE CHANGES: Pre-op weight loss surgery (RYGB): Diet and Exercise PAIN: Is the patient having any pain that is interfering with oral / enteral intake? No: 0 on a scale of 0 to 10 PROGRESS: Nutrition Intervention (date of last encounter 11/06/23): 1. Read Nutritional Guidelines Section of Your Guide to Surgery by next session [email or web address] la=en 2. Do not skip meals. 3. Use protein shake 1x per day to replace any skipped meals or for breakfast -Start to try the approved pre-op protein shake options: Slim Fast Advanced Nutrition OR Light Start Sealevel Breakfast Essentials mixed with 1% or skim milk OR Atkins Protein Shakes (15 gm protein version) OR Glucose Controlled Boost OR OWYN (180 ana, 20 gm protein version) 4. Use the Healthy Plate Method of portion control for lunch and dinner 4 oz lean meat (fish, chicken, pork tenderloin, turkey, seafood, eggs/cheese) 1/2 plate non starchy vegetables (salad, greens, cabbage, spinach, brussels sprouts, broccoli, carrots, celery, peppers, green beans, cauliflower) 1 cup starch/starchy vegetables (corn, peas, beans, winter squash, sweet potato, brown rice, whole grain pasta, whole grain bread products, quinoa) 5. Physical activity: Aim for 20-30 min exercise most days, can start in smaller segments such as 10 min 3 x per day. Add weight resistance exercise 3 days per week. Aim to be less sedentary during the day, aim for activity every hour. Limit TV to 2 hours per day 6. Drink 64 ounces per day water. Fluids should follow these guidelines: No carbonation, no caffeine, no calories, no alcohol. 7. Start to research the post-op vitamins: Some examples of vitamins/mineral companies: - Bariatric Fusion: 4 Complete Multivitamin chewables per day OR 1 Multivitamin capsule and 6627-8916 mg calcium citrate per day OR 2 Multivitamin soft chews per day + 3 calcium citrate soft chews + 1 iron soft chew per day www.bariatricfusion.CoreTrace - Procare Health: 1 Bariatric Multivitamin w/ iron (capsule or chewable) and 7671-8980 mg calcium citrate per day www.BrandBacker.CoreTrace - Bariatric Choice: 1 Once Daily Bariatric Multivitamin capsule and 9742-9614 mg calcium citrate per day OR 4 All-in-One Bariatric Multivitamin chewables per day www.[email or web address] - Bariatric Advantage: 1 Ultra Solo multivitamin w/ iron (chewable or capsule) OR 2 chewable Advanced Multi EA w/ iron and 3100-2435 mg calcium citrate per day OR 2 Multi Chewy Bites and 8222-7938 mg calcium citrate and 45-60 mg iron per day www.bariatricadvantage.com - Bariatric Pal: 1 Multivitamin One (chewable or capsule) and 5983-4395 mg calcium citrate per day OR 4 All-in-One Multivitamin chewables per day www.Polar.bariatricpal.CoreTrace/colle ctions/bariatric-vitamins - Barilife: 1 Just One Bariatric Multivitamin w/ iron (chewable or capsule) and 0256-3798 mg calcium citrate per day www.Avante Logixx.CoreTrace - Barimelts: 2 Multivitamin w/ iron tablets and 8609-9005 mg calcium citrate per day www.TheCommentor.CoreTrace Pre-op goal weight: maintain current weight Protein needs: 68 gm per day CHANGES IN TREATMENT: Patient met goal(s): Yes Actions to implement interventions: Breakfast - protein shake (OWYN or Fairlife) Snack - fruit Lunch - salad OR wrap Snack - fruit Dinner - protein with potato and vegetables Snack - none Fluids - water (48 oz), coffee (1 cup), occasional tea, Hint Water Exercise - walking 20-30 minutes most days Diagnosis: has not changed. Anthropometrics: Resting Metabolic Rate: 1320 Body mass index is 36.37 kg/m . Malnutrition Screening Significant unintentional weight loss? No Eating less than 75% of usual intake for more than 2 weeks? No Nutritional status: Educational materials provided: none this visit READINESS TO LEARN Cognitive ability: Alert and oriented Motivation to learn: Interested Family support: Unable to assess - Family not present Instruction provided to: Patient Patient learns best by: Multiple Methods Factors affecting learning: None Physical limitations affecting learning: None Likelihood of Adherence: High Patient participated in preop bariatric surgery shared nutrition appointment. Patient participated actively in group. Since last assessment Patient reports weight stability. Diet recall reveals consistent meal pattern with no missed meals. Meals are generally balanced and protein-dense. Appropriate snack choices. Utilizing protein shake as meal replacement routinely. Fluids are increasing to meet needs and patient reports actively reducing caffeine intake. Physical activity remains consistent and meets recommendations. Most recent labs reviewed, Creatinine WNL. After session today, patient able to verbalize protein/fluid/exercise goals, recommendations for vitamin/minerals, use of protein shakes for meal replacement and for 2 week full liquid diet phase. Also able to demonstrate post op diet advancement/portion control using food models. Anticipate post op compliance. The patient meets NIH guidelines for weight loss surgery and has been thoroughly evaluated and educated on good dietary practices. Patient is capable of following these guidelines pre-and post-surgically. From nutrition standpoint, the patient is cleared for weight loss surgery. If the patient desires, she may continue to follow-up with the dietitian on a monthly basis until all surgical requirements are met. Nutrition Diagnosis: Overweight/obesity, related to, food/nutrition - related knowledge deficit, as evidenced by BMI above normative standard for age and gender. Nutrition Intervention: Modify type and amount of intake at meals and snacks Please call [phone], option 5. Leave a message for the navigation team when you are finished with all clearances (nutrition, psychology, medical, surgeon) 1.Starting ~3 weeks after surgery take daily bariatric vitamins Some examples of vitamins/mineral companies: - Bariatric Fusion: 4 Complete Multivitamin chewables per day OR 1 Multivitamin capsule and 6402-3956 mg calcium citrate per day OR 2 Multivitamin soft chews per day + 3 calcium citrate soft chews + 1 iron soft chew per day www.bariatricfusion.com - Procare Health: 1 Bariatric Multivitamin w/ iron (capsule or chewable) and 2918-8968 mg calcium citrate per day www.Phoenix Books - Bariatric Choice: 1 Once Daily Bariatric Multivitamin capsule and 4565-2663 mg calcium citrate per day OR 4 All-in-One Bariatric Multivitamin chewables per day www.bariatricHooked.CoreTrace - Bariatric Advantage: 1 Ultra Solo multivitamin w/ iron (chewable or capsule) OR 2 chewable Advanced Multi EA w/ iron and 8326-0904 mg calcium citrate per day OR 2 Multi Chewy Bites and 1630-2419 mg calcium citrate and 45-60 mg iron per day www.bariatricadVMware.CoreTrace - Bariatric Pal: 1 Multivitamin One (chewable or capsule) and 0505-4703 mg calcium citrate per day OR 4 All-in-One Multivitamin chewables per day www.Wellfountbariatricpal.CoreTrace/colle ctions/bariatric-vitamins - Barilife: 1 Just One Bariatric Multivitamin w/ iron (chewable or capsule) and 6228-0287 mg calcium citrate per day www.Avante Logixx.CoreTrace - Barimelts: 2 Multivitamin w/ iron tablets and 8642-9262 mg calcium citrate per day www.Maui Fun CompanymelReDoc Software.CoreTrace 2. Protein goal: 68 grams protein/day 3. Fluid goal: 64oz per day water. (no calories, no caffeine, no carbonation, no alcohol) 4. Exercise goal: 150-250 minutes combination cardio/strength training/week 5. Practice mindful eating habits-take small portions, eat slowly, chew thoroughly 6. Start the full liquid diet (2) weeks prior to surgery using the approved protein shakes listed below, continue a minimum of 64 oz water per day during this time. No solid food. May have sugar free popsicle and sugar free jello -During the 2 week liquid diet before surgery include a daily Super B-Complex vitamin -Liquid diet protein shake options: 4.5 bottles Slim Fast Advanced Nutrition OR 5.5 packets Light Start Sealevel Breakfast Essentials mixed with 1% or skim milk OR 5 Atkins Protein Shakes (15 gm protein version) OR 4.5 bottles Glucose Controlled Boost OR 4.5 bottles OWYN (20 gm protein version) 7. Advance diet as tolerated after surgery. Use the Your Guide to Surgery for guidance and meal plans Nutrition Monitoring & Evaluation: 1-2 # weight loss per week prior to surgery Criteria: Weight check Need for Follow up: 2 weeks pre-op Group Appointment Start Time: 8:00 AM Group Appointment End Time: 8:52 AM Signed by: Rolf Patino RD documented in this encounter [facility] 11-28-2023 Note HNO ID: [id number] Author: ROLF PATINO RD Service: ? Author Type: Registered Dietitian Type: Progress Notes Filed: 11/28/2023 09:13 Note Text: AMBULATORY PATIENT EDUCATION NOTE- Shared Virtual Nutrition Group I have communicated my name and active licensure. The patient's identity and physical location were verified at the time of this visit. Either the patient or their legal player services representative has been informed of the risks and benefits of -- and alternatives to -- treatment through a remote evaluation and consents to proceed with the evaluation remotely. Patient reports weight (as measured by home scale) of 180 pounds. TOPIC: LIFE STYLE CHANGES: Pre-op weight loss surgery (RYGB): Diet and Exercise PAIN: Is the patient having any pain that is interfering with oral / enteral intake? No: 0 on a scale of 0 to 10 PROGRESS: Nutrition Intervention (date of last encounter 11/06/23): 1. Read Nutritional Guidelines Section of Your Guide to Surgery by next session [email or web address] 2. Do not skip meals. 3. Use protein shake 1x per day to replace any skipped meals or for breakfast -Start to try the approved pre-op protein shake options: Slim Fast Advanced Nutrition OR Light Start Sealevel Breakfast Essentials mixed with 1% or skim milk OR Atkins Protein Shakes (15 gm protein version) OR Glucose Controlled Boost OR OWYN (180 ana, 20 gm protein version) 4. Use the Healthy Plate Method of portion control for lunch and dinner 4 oz lean meat (fish, chicken, pork tenderloin, turkey, seafood, eggs/cheese) 1/2 plate non starchy vegetables (salad, greens, cabbage, spinach, brussels sprouts, broccoli, carrots, celery, peppers, green beans, cauliflower) 1 cup starch/starchy vegetables (corn, peas, beans, winter squash, sweet potato, brown rice, whole grain pasta, whole grain bread products, quinoa) 5. Physical activity: Aim for 20-30 min exercise most days, can start in smaller segments such as 10 min 3 x per day. Add weight resistance exercise 3 days per week. Aim to be less sedentary during the day, aim for activity every hour. Limit TV to 2 hours per day 6. Drink 64 ounces per day water. Fluids should follow these guidelines: No carbonation, no caffeine, no calories, no alcohol. 7. Start to research the post-op vitamins: Some examples of vitamins/mineral companies: - Bariatric Fusion: 4 Complete Multivitamin chewables per day OR 1 Multivitamin capsule and 1039-3481 mg calcium citrate per day OR 2 Multivitamin soft chews per day + 3 calcium citrate soft chews + 1 iron soft chew per day www.bariatricfusion.com - Procare Health: 1 Bariatric Multivitamin w/ iron (capsule or chewable) and 8969-9139 mg calcium citrate per day www.Plum (Former[employer] Ube)areNHC Beauty Enterprises.CoreTrace - Bariatric Choice: 1 Once Daily Bariatric Multivitamin capsule and 2386-7022 mg calcium citrate per day OR 4 All-in-One Bariatric Multivitamin chewables per day www.bariatricchoice.CoreTrace - Bariatric Advantage: 1 Ultra Solo multivitamin w/ iron (chewable or capsule) OR 2 chewable Advanced Multi EA w/ iron and 9153-4859 mg calcium citrate per day OR 2 Multi Chewy Bites and 2370-3111 mg calcium citrate and 45-60 mg iron per day www.bariatricadvantage.CoreTrace - Bariatric Pal: 1 Multivitamin One (chewable or capsule) and 4083-7605 mg calcium citrate per day OR 4 All-in-One Multivitamin chewables per day www.Wellfountbariatricpal.CoreTrace/colle ctions/bariatric-vitamins - Barilife: 1 Just One Bariatric Multivitamin w/ iron (chewable or capsule) and 9125-7430 mg calcium citrate per day www.Whisbi - Barimelts: 2 Multivitamin w/ iron tablets and 6083-0295 mg calcium citrate per day www.barimelts.CoreTrace Pre-op goal weight: maintain current weight Protein needs: 68 gm per day CHANGES IN TREATMENT: Patient met goal(s): Yes Actions to implement interventions: Breakfast - protein shake (OWYN or Fairlife) Snack - fruit Lunch - salad OR wrap Snack - fruit Dinner - protein with potato and vegetables Snack - none Fluids - water (48 oz), coffee (1 cup), occasional tea, Hint Water Exercise - walking 20-30 minutes most days Diagnosis: has not changed. Anthropometrics: Resting Metabolic Rate: 1320 Body mass index is 36.37 kg/m?. Malnutrition Screening Significant unintentional weight loss? No Eating less than 75% of usual intake for more than 2 weeks? No Nutritional status: Educational materials provided: none this visit READINESS TO LEARN Cognitive ability: Alert and oriented Motivation to learn: Interested Family support: Unable to assess - Family not present Instruction provided to: Patient Patient learns best by: Multiple Methods Factors affecting learning: None Physical limitations affecting learning: None Likelihood of Adherence: High Patient participated in preop bariatric surgery shared nutrition appointment. Patient participate (more content not included)... [facility] 11-18-2023 Telephone encounter Note ordered [facility] 11-18-2023 Miscellaneous Notes ordered Please review pt message. Appears that all labs have been completed other than a CEA BLD test. Please advise if needing any other labs. Alyssia Godinez MA documented in this encounter [facility] 11-18-2023 Telephone encounter Note Please review pt message. Appears that all labs have been completed other than a CEA BLD test. Please advise if needing any other labs. Alyssia Godinez MA [facility] 11-13-2023 Nurse Note Pt. arrived to phase 2 resting on left side. SR up x 2, call light in reach. Naila Navarro RN [facility] 11-13-2023 Nurse Note Pt. arrived to phase 2 resting on left side. SR up x 2, call light in reach. Naila Navarro RN documented in this encounter [facility] 11-13-2023 Note Formatting of this n ote might be different from the original. The patient received a copy of EGD discharge instructions that contain information for how to contact the physician who performed the procedure and when to seek medical care. [facility] 11-13-2023 Miscellaneous Notes The patient received a copy of EGD discharge instructions that contain information for how to contact the physician who performed the procedure and when to seek medical care. documented in this encounter [facility] 11-13-2023 History and physical note PATIENT NAME: Angelique Wynne REASON FOR CONSULT: Morbid Obesity REQUESTING PHYSICIAN: Self DATE of SERVICE: 10/20/2023 TIME of SERVICE: 2:10 PM PCP: Luis Staley MD CC: Morbid Obesity HPI: Ms. Wynne is a 53 year old female who is referred for evaluation for Bariatric surgery. Patient does not have any specific complaints today. Anterior proctosigmoidectomy, low colorectal anastomosis. (2007) Patient presents to clinic today for work up for Bariatric surgery. She has been considering surgery for some time as she is set to retire from her job soon. She has been in [facility] for her DM for few years and hopes bariatric surgery will help her get off the Trulicity. Patient has been obese since young adulthood. She has tried multiple diets, OTC medications to with only 10 pound weight loss each time over he span of 6-8 months. Her goal weight is 120 pounds. Currently on a regular diet. Patient's obesity related chronic medical conditions include: Diabetes: Yes Hypertension: Yes Hyperlipedemia:Yes OA:No JANA: No DVT/PE:No Gastroesophageal reflux: Yes EGD: Yes Patient is inclined towards: bypass Patient's goal weight is 120 pounds. 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 Other and unspecified hyperlipidemia Personal history of malignant neoplasm of rectum, rectosigmoid junction, and anus PAST SURGICAL HISTORY: PAST SURGICAL HISTORY PAST SURGICAL HISTORY Procedure Laterality Date COLECTOMY PARTIAL W/ANASTOMOSIS low anterior resection 31ceea anastamosis COLON SURGERY HX COLONOSCOPY FLX DX W/COLLJ SPEC WHEN PFRMD clean anastamosis COLONOSCOPY FLX DX W/COLLJ SPEC WHEN PFRMD 10/23/09, 11/05/11 clean anastamosis - recommend 3 year follow up COLONOSCOPY FLX DX W/COLLJ SPEC WHEN PFRMD 01/03/15 clean anastamosis - recommend 5 year follow up COLONOSCOPY FLX DX W/COLLJ SPEC WHEN PFRMD 01/06/2020 Colonoscopy COLONOSCOPY W/BIOPSY SINGLE/MULTIPLE 09/02/07 EGD TRANSORAL BIOPSY SINGLE/MULTIPLE 09/02/07 EGD TRANSORAL BIOPSY SINGLE/MULTIPLE INSJ TUNNELED CTR VAD W/SUBQ PORT AGE 5 YR/> 11/20/2007 Left Subclavian REMOVED PAST SURGICAL HISTORY OF 2005 needle biopsy of the left breast SOCIAL HISTORY: SOCIAL HISTORY Social History Tobacco Use Smoking status: Never Smokeless tobacco: Never Vaping Use Vaping Use: Never used Substance Use Topics Alcohol use: Yes Comment: Rarely Drug use: No ALLERGIES: ALLERGIES ALLERGIES Allergen Reactions Oxaliplatin Anaphylaxis Went to [facility] ER 02/08/08 FAMILY HISTORY: FAMILY HISTORY FAMILY HISTORY Adopted: Yes Problem Relation Age of Onset Diabetes Father Heart Father 62 from [place] Hypertension Father Heart Sister cancer--possible heart attack with chemo other (Crohn's Disease) Daughter MEDICATIONS: Prior to Admission Medications: CURRENT MEDICATIONS lisinopril (ZESTRIL) 20 mg tablet Take 1 tablet by mouth once daily. Lancets lancets Use with blood glucose test once daily. Insulin Dep? Yes blood sugar diagnostic test strip Use with blood glucose test once daily, Insulin Dep? No dulaglutide (TRULICITY) 4.5 mg/0.5 mL pen injector Inject 4.5 mg subcutaneously one time a week. atorvastatin (LIPITOR) 40 mg tablet Take 1 tablet by mouth daily at bedtime. For cholesterol. Blood-Glucose Meter Test One time a day. Blood Glucose Control, Normal soln Use as directed No current facility-administered medications for this visit. FAMILY HISTORY: FAMILY HISTORY FAMILY HISTORY Adopted: Yes Problem Relation Age of Onset Diabetes Father Heart Father 62 [place] Hypertension Father Heart Sister cancer--possible heart attack with chemo other (Crohn's Disease) Daughter Review of Systems: PAIN ASSESSMENT: Negative for pain, history of chronic pain, or current treatment for a chronic pain condition. GENERAL: No weight loss, malaise or fevers. RESPIRATORY: Negative for cough, hemoptysis, wheezing, COPD, dyspnea or shortness of breath CARDIOVASCULAR: Negative for chest pain, leg swelling, hypertension, CHF or palpitations The remainder of the review of systems is negative. PHYSICAL EXAMINATION: BP 149/74 Pulse 76 Temp 36.7 C (98 F) (Temporal) Ht 149.9 cm (4' 11.02 ) Wt 81.6 kg (180 lb) LMP 09/19/2017 SpO2 95% BMI 36.34 kg/m General appearance: Morbidly obese Skin: Skin color, texture, turgor normal, no suspicious rashes or lesions Head: Normocephalic, no masses, lesions, tenderness or abnormalities Eyes: Anicteric sclera. Pupils are equally round and reactive to light. Extraocular movements are intact. Ears: External ears normal, canals clear Nose/Sinuses: Nares normal, septum midline, mucosa normal, no drainage or sinus tenderness Oropharynx: Lips, mucosa, and tongue normal, teeth and gums normal, oropharynx normal Neck: Supple, no adenopathy; thyroid symmetric, normal size, no bruits Back: Normal exam Lungs: Lungs clear to auscultation. No wheezing, rhonchi, rales. Heart: RRR without murmur, gallop, or rubs. No ectopy Abdomen: Normal abdominal exam, Abdomen soft, non-tender. Bowel sounds normal. No masses, organomegaly. Large midline laparotomy scar from 2008 Extremities: No deformities, edema, skin discoloration, clubbing or cyanosis. Good capillary refill. Musculoskeletal: No joint swelling, deformity, or tenderness Peripheral pulses: Normal Neuro: Gait normal. Reflexes normal and symmetric. Sensation grossly intact. IMPRESSION Morbid Obesity PLAN: Patient is a very pleasant 53 year old with morbid obesity, patient of Luis Staley MD with a Body mass index is 36.34 kg/m ., PMHX of HTN, DM (Trulicity, HbA1C 6.9 10/17/2023), HLD, minimal GERD, s/p Exploratory Laparotomy, LAR for rectal CA in 2007. Patient is here today seeking information regarding weight loss in order to stop trulicity. Her other most significant history is a history of an open low anterior resection for rectal cancer. She is currently in remission and has been for many years. On examination she has a midline laparotomy that extends approximately 6 cm above the umbilicus. I have discussed in detail patients options including sleeve gastrectomy and Myrtle-en-Y gastric bypass. Based on patient's BMI and medical co morbidities patient would be a candidate for either sleeve gastrectomy as she has very minimal GERD symptoms and is not on any medications or Myrtle-en-Y gastric bypass. We have discussed these options in great detail we are currently bleeding tumors laparoscopic possible open Myrtle-en-Y gastric bypass as she prefers to have an operation with best long-term outcomes even if it needs to be done in an open fashion. On examination a lot of her epigastrium was of the midline incision. Patient meets NIH criteria for surgery. I have discussed with patient regarding peoperative goal weight prior to liquid fast: Per manual arts therapist Surgically Cleared with completion of the below: 1) Pre op EGD needed: Yes 2) Consults- No Patient will continue through the program and will come back to me prior to planned surgery for discussion regarding options and pre op teaching. I spent approximately 45 minutes with the patient with most of the time spent in counseling. I have reviewed with this patient probably and potential medical and surgical complications of bariatric surgery, nutritional changes, post-operative recovery, and the potential for excess skin and other cosmetic sequelae following surgery and subsequent weight loss. Risks of nicotine before and after bariatric surgery were also discussed with patient. This office note will be sent to the referring provider via electronic medical record and US mail. Broderick Ansari MD UPDATED HISTORY AND PHYSICAL EXAMINATION SERVICE DATE: 11/13/2023 SERVICE TIME: 8:43 AM PHYSICAL EXAM MUST BE COMPLETED ON ADMISSION The History and Physical (completed in the past 30 days) has been reviewed and the patient has been examined. The contents accurately reflect the patient's condition with the following additions or revisions since the H&P was completed. Examination indicates no changes. This H&P can be found in the attached. SIGNATURE: Higinio Campuzano III, MD PATIENT NAME: Angelique Wynne DATE: November 13, 2023 TIME: 8:43 AM [facility] 11-13-2023 History and physical note PATIENT NAME: Angelique Wynne REASON FOR CONSULT: Morbid Obesity REQUESTING PHYSICIAN: Self DATE of SERVICE: 10/20/2023 TIME of SERVICE: 2:10 PM PCP: Luis Staley MD CC: Morbid Obesity HPI: Ms. Wynne is a 53 year old female who is referred for evaluation for Bariatric surgery. Patient does not have any specific complaints today. Anterior proctosigmoidectomy, low colorectal anastomosis. (2007) Patient presents to clinic today for work up for Bariatric surgery. She has been considering surgery for some time as she is set to retire from her job soon. She has been in Trulicity for her DM for few years and hopes bariatric surgery will help her get off the Trulicity. Patient has been obese since young adulthood. She has tried multiple diets, OTC medications to with only 10 pound weight loss each time over he span of 6-8 months. Her goal weight is 120 pounds. Currently on a regular diet. Patient's obesity related chronic medical conditions include: Diabetes: Yes Hypertension: Yes Hyperlipedemia:Yes OA:No JANA: No DVT/PE:No Gastroesophageal reflux: Yes EGD: Yes Patient is inclined towards: bypass Patient's goal weight is 120 pounds. 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 Other and unspecified hyperlipidemia Personal history of malignant neoplasm of rectum, rectosigmoid junction, and anus PAST SURGICAL HISTORY: PAST SURGICAL HISTORY PAST SURGICAL HISTORY Procedure Laterality Date COLECTOMY PARTIAL W/ANASTOMOSIS low anterior resection 31ceea anastamosis COLON SURGERY HX COLONOSCOPY FLX DX W/COLLJ SPEC WHEN PFRMD clean anastamosis COLONOSCOPY FLX DX W/COLLJ SPEC WHEN PFRMD 10/23/09, 11/05/11 clean anastamosis - recommend 3 year follow up COLONOSCOPY FLX DX W/COLLJ SPEC WHEN PFRMD 01/03/15 clean anastamosis - recommend 5 year follow up COLONOSCOPY FLX DX W/COLLJ SPEC WHEN PFRMD 01/06/2020 Colonoscopy COLONOSCOPY W/BIOPSY SINGLE/MULTIPLE 09/02/07 EGD TRANSORAL BIOPSY SINGLE/MULTIPLE 09/02/07 EGD TRANSORAL BIOPSY SINGLE/MULTIPLE INSJ TUNNELED CTR VAD W/SUBQ PORT AGE 5 YR/> 11/20/2007 Left Subclavian REMOVED PAST SURGICAL HISTORY OF 2005 needle biopsy of the left breast SOCIAL HISTORY: SOCIAL HISTORY Social History Tobacco Use Smoking status: Never Smokeless tobacco: Never Vaping Use Vaping Use: Never used Substance Use Topics Alcohol use: Yes Comment: Rarely Drug use: No ALLERGIES: ALLERGIES ALLERGIES Allergen Reactions Oxaliplatin Anaphylaxis Went to [facility] ER 02/08/08 FAMILY HISTORY: FAMILY HISTORY FAMILY HISTORY Adopted: Yes Problem Relation Age of Onset Diabetes Father Heart Father 62 from [place] Hypertension Father Heart Sister cancer--possible heart attack with chemo other (Crohn's Disease) Daughter MEDICATIONS: Prior to Admission Medications: CURRENT MEDICATIONS lisinopril (ZESTRIL) 20 mg tablet Take 1 tablet by mouth once daily. Lancets lancets Use with blood glucose test once daily. Insulin Dep? Yes blood sugar diagnostic test strip Use with blood glucose test once daily, Insulin Dep? No dulaglutide (TRULICITY) 4.5 mg/0.5 mL pen injector Inject 4.5 mg subcutaneously one time a week. atorvastatin (LIPITOR) 40 mg tablet Take 1 tablet by mouth daily at bedtime. For cholesterol. Blood-Glucose Meter Test One time a day. Blood Glucose Control, Normal soln Use as directed No current facility-administered medications for this visit. FAMILY HISTORY: FAMILY HISTORY FAMILY HISTORY Adopted: Yes Problem Relation Age of Onset Diabetes Father Heart Father 62 [place] Hypertension Father Heart Sister cancer--possible heart attack with chemo other (Crohn's Disease) Daughter Review of Systems: PAIN ASSESSMENT: Negative for pain, history of chronic pain, or current treatment for a chronic pain condition. GENERAL: No weight loss, malaise or fevers. RESPIRATORY: Negative for cough, hemoptysis, wheezing, COPD, dyspnea or shortness of breath CARDIOVASCULAR: Negative for chest pain, leg swelling, hypertension, CHF or palpitations The remainder of the review of systems is negative. PHYSICAL EXAMINATION: BP 149/74 Pulse 76 Temp 36.7 C (98 F) (Temporal) Ht 149.9 cm (4' 11.02 ) Wt 81.6 kg (180 lb) LMP 09/19/2017 SpO2 95% BMI 36.34 kg/m General appearance: Morbidly obese Skin: Skin color, texture, turgor normal, no suspicious rashes or lesions Head: Normocephalic, no masses, lesions, tenderness or abnormalities Eyes: Anicteric sclera. Pupils are equally round and reactive to light. Extraocular movements are intact. Ears: External ears normal, canals clear Nose/Sinuses: Nares normal, septum midline, mucosa normal, no drainage or sinus tenderness Oropharynx: Lips, mucosa, and tongue normal, teeth and gums normal, oropharynx normal Neck: Supple, no adenopathy; thyroid symmetric, normal size, no bruits Back: Normal exam Lungs: Lungs clear to auscultation. No wheezing, rhonchi, rales. Heart: RRR without murmur, gallop, or rubs. No ectopy Abdomen: Normal abdominal exam, Abdomen soft, non-tender. Bowel sounds normal. No masses, organomegaly. Large midline laparotomy scar from 2008 Extremities: No deformities, edema, skin discoloration, clubbing or cyanosis. Good capillary refill. Musculoskeletal: No joint swelling, deformity, or tenderness Peripheral pulses: Normal Neuro: Gait normal. Reflexes normal and symmetric. Sensation grossly intact. IMPRESSION Morbid Obesity PLAN: Patient is a very pleasant 53 year old with morbid obesity, patient of Luis Staley MD with a Body mass index is 36.34 kg/m ., PMHX of HTN, DM (Trulicity, HbA1C 6.9 10/17/2023), HLD, minimal GERD, s/p Exploratory Laparotomy, LAR for rectal CA in 2007. Patient is here today seeking information regarding weight loss in order to stop trulicity. Her other most significant history is a history of an open low anterior resection for rectal cancer. She is currently in remission and has been for many years. On examination she has a midline laparotomy that extends approximately 6 cm above the umbilicus. I have discussed in detail patients options including sleeve gastrectomy and Myrtle-en-Y gastric bypass. Based on patient's BMI and medical co morbidities patient would be a candidate for either sleeve gastrectomy as she has very minimal GERD symptoms and is not on any medications or Myrtle-en-Y gastric bypass. We have discussed these options in great detail we are currently bleeding tumors laparoscopic possible open Myrtle-en-Y gastric bypass as she prefers to have an operation with best long-term outcomes even if it needs to be done in an open fashion. On examination a lot of her epigastrium was of the midline incision. Patient meets NIH criteria for surgery. I have discussed with patient regarding peoperative goal weight prior to liquid fast: Per manual arts therapist Surgically Cleared with completion of the below: 1) Pre op EGD needed: Yes 2) Consults- No Patient will continue through the program and will come back to me prior to planned surgery for discussion regarding options and pre op teaching. I spent approximately 45 minutes with the patient with most of the time spent in counseling. I have reviewed with this patient probably and potential medical and surgical complications of bariatric surgery, nutritional changes, post-operative recovery, and the potential for excess skin and other cosmetic sequelae following surgery and subsequent weight loss. Risks of nicotine before and after bariatric surgery were also discussed with patient. This office note will be sent to the referring provider via electronic medical record and US mail. Broderick Ansari MD UPDATED HISTORY AND PHYSICAL EXAMINATION SERVICE DATE: 11/13/2023 SERVICE TIME: 8:43 AM PHYSICAL EXAM MUST BE COMPLETED ON ADMISSION The History and Physical (completed in the past 30 days) has been reviewed and the patient has been examined. The contents accurately reflect the patient's condition with the following additions or revisions since the H&P was completed. Examination indicates no changes. This H&P can be found in the attached. SIGNATURE: Higinio Campuzano III, MD PATIENT NAME: Angelique Wynne DATE: November 13, 2023 TIME: 8:43 AM documented in this encounter [facility] 11-10-2023 Note HNO ID: [id number] Author: ?, ?, ? Service: ? Author Type: ? Type: Progress Notes Filed: 11/10/2023 12:39 Note Text: Sleep Study Check-In Documentation Date: November 10, 2023 Name: Angelique Bansalple Comments: HST was returned in working order without all sleep questionnaires Patient was contacted and sleep questionnaires were completed telephonically Betsy Diez [facility] 11-10-2023 History of Presen t illness Narrative Sleep Study Check-In Documentation Date: November 10, 2023 Name: Angelique Bansalple Comments: HST was returned in working order without all sleep questionnaires Patient was contacted and sleep questionnaires were completed telephonically Betsy Diez Nomad # [id number] , date shipped out 11-05-23 [employer] only Tracking mailout: [id number] Tracking return: [phone] Rescheduled 11/05. Sleep Study Check-In Documentation Date: October 21, 2023 Name: Angelique Wynne Comments: HST was returned in work order. Study failed due to the belts,Pt sent a MC to leonardo. Romi Clark Nomad# [id number] +gps Date shipped out 10/14 SENT [employer] - [employer] RETURN Tracking Mailout: [id number] Tracking Return: [phone] [id number] October 14, 2023 Standing PSG Orders signed in the last 90 days None Future PSG Orders signed in the last 90 days Ordered Auth. provider HOME SLEEP APNEA TEST (HSAT) [[id number]] 10/02/23 Rachel Mcmillan APRN.ASTROPHYSICS TEACHER Assoc. diagnoses: Class 2 severe obesity with serious comorbidity and body mass index (BMI) of 35.0 to 35.9 in adult, unspecified obesity type (HCC) [E66.01, Z68.35] Q: Indications: A: Obstructive sleep apnea Q: STOP-BANG conditions - Select All That Apply: A: BMI > 35 kg/m2 A2: AGE > 50 A3: high blood PRESSURE A4: SNORING that is loud or disruptive Q: Current use of supplemental oxygen during sleep period?: A: No CONSULT TO SLEEP MEDICINE - ADULT [[id number]] 10/02/23 Rachel Mcmillan, CABLE INSTALLER REPAIRER HELPER.ASTROPHYSICS TEACHER Assoc. diagnoses: Class 2 severe obesity with serious comorbidity and body mass index (BMI) of 35.0 to 35.9 in adult, unspecified obesity type (HCC) [E66.01, Z68.35] Q: Does consulting provider have [facility] Epic access?: A: Yes All Prior Sleep Studies (past 365 days) 10/02/2023 Sleep Studies HOME SLEEP APNEA TEST (HSAT) HOME SLEEP APNEA TEST (HSAT) Order Status: Ordered, Future Expires: 10/01/24 CONSULT TO SLEEP MEDICINE - ADULT CONSULT TO SLEEP MEDICINE - ADULT Order Status: Ordered, Future BMI Readings from Last 2 Encounters: 10/02/23 : 35.95 kg/m 06/13/23 : 34.96 kg/m PAST MEDICAL HISTORY Diagnosis Date Acute gastritis without mention of hemorrhage Diabetes mellitus (HCC) Esophagitis, unspecified Essential hypertension, benign Hyperlipidemia Hypertension Malignant neoplasm of colon, unspecified site 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 Indications for study: JANA suspected without comorbid medical or sleep disorders Sleep study to be performed: Home Sleep Apnea Test (HSAT) Special instructions: None-follow laboratory protocol Katiana Howard - Sleep Medicine Staff Note: I have read the above protocol, edited as needed, and agree to the plan. Vero Segundo III, PhD 8:05 PM, 10/14/2023 October 14, 2023 An order has been received for Home Sleep Apnea Test (HSAT) from Rachel Gracia, LESLIE.ASTROPHYSICS TEACHER , lucien Pyle. [facility] Staff. Visit prep complete. Comments :No The sleep study is scheduled for 10/18. Insurance: Payor: MMO / Plan: MMO SUPERMED PPO / Product Type: PPO / Payer/Plan Subscr Sex Relation Sub. Ins. ID Effective Group Num 1. MMO - MMO SUP* ANGELIQUE WYNNE 1970 Female Self [id number] 11/30/18 [id number] [address] Anali Polanco documented in this encounter [facility] 11-07-2023 Note HNO ID: [id number] Author: RACHEL ESCALANTE PSYD Service: ? Author Type: Psychologist Type: Progress Notes Filed: 11/07/2023 12:38 Note Text: [facility] Bariatric Behavioral Services Progress Note Patient Name: Angelique Wynne 11/07/2023 Cost Center: [facility] Billing codes: Rory BMI Surgical Pathway Visit type: Psychology Visit CPT Code: 08390 Brief Emotional/Behavioral Assessment with scoring/documentation [id number] Virtual Psychotherapy 38-52 minutes 11:00AM to 11:40AM The following visit was completed virtually and informed consent obtained via Instant API (see consent dated 09/30/23); the behavioral health care insurance benefits, fees for service, emergency procedures, and the limits of confidentiality that may pertain with any given case were discussed with the patient at initial evaluation. I have communicated my name and active licensure at initial evaluation. The patient's identity and physical location were verified at the time of this visit. Either the patient or their legal player services representative has been informed of the risks and benefits of -- and alternatives to -- treatment through a remote evaluation/session and consents to proceed remotely. Upon completion of risk/benefit analysis, the patient's presenting problem and apparent condition are considered appropriate for virtual format. The patient does appear to have sufficient knowledge and skills in the use of relevant technology to benefit from virtual format. Platform: Zoom for Healthcare Address of Patient During Time of Virtual Visit: Pt car parked at [address] [address] Emergency Contact: Chuck Wynne (Spouse) at [phone] Of note, Pt briefly lost connection to virtual visit when her phone overheated. Visit resumed once she reconnected. Collateral Parties Present: None Session #: 2 Subjective: The patient has been working on the following steps to prepare for surgery: 1). Elected RYGB 2). Initial visits with Surgery and Nutrition 3). Reading through surgery handbook 4). Talking to supports who have had MBS Patient follows up with this designer writer today to discuss emotional preparation for surgery. Since initial evaluation, Pt has met with her surgeon and Nutrition. She has elected to pursue RYGB with aim of better control over DM2. She demonstrated appropriate understanding of surgery, behavioral changes and risk. Discussed dumping syndrome in more detail and she asked appropriate questions about its management. She has a friend who underwent MBS 2 months ago and has been speaking with them about post-operative challenges. She is more open to taking several weeks off from work post-op after speaking with her surgeon. Mood was reported as unchanged at this visit; she continues to deny clinically significant psychiatric distress. Reviewed emotional preparation for surgery and developing lifelong lifestyle habits to promote weight outcomes. Patient has not yet started eating and drinking and recognizes that this will be a challenge. Briefly discussed strategies to facilitate this behavioral change. She is currently working on increasing hydration, exercise and protein following recommendations from RD on 11/06/23. Briefly discussed monitoring progress post-op: she is hoping take pictures, record measurements. Desired NSV are reports as reduction in medication. Patient continues to deny any disordered eating behaviors, with exception infrequent grazing (trying to limit by keeping snacks out of the house). In discussion of historical behaviors, Pt identified life stressors as prompting unhealthy exercise habits in her 20's (had lost her job, just graduated). Recognizes now that efforts to control weight through exercise reflected a coping strategy. Feels she has a better toolbox now including listening to music, taking quiet time to herself, and walking outside alone. Also has changed expectations for her body/physical activity within the context of her age. Acknowledged former all or nothing thinking tendencies specific to exercise. Reports greater cognitive flexibility such that she modifies exercise goals to meet her physical needs. Red flags indicative of relapse were identified as return of rigid thinking patterns (e.g. I have to exercise even though I'm feeling sick). She was open to contacting BMI Psychology in the event of any changes in mood or disordered eating/exercise post-op. Patient reported that she drank 1 beer since last visit with this designer writer (her first drink in 6 months) and demonstrated appropriate understanding of post-op risks. She continues to deny recent tobacco or illicit drug use. Interventions: 1). Review of behavioral progress 2). Education on RYGB risks and behavioral changes 3). Relapse prevention 4). Discussion of monitoring progress post-op and long-term weight manag (more content not included)... [facility] 11-06-2023 Instructions Rolf Patino, PABLO - 11/06/2023 8:23 AM EDT 1. Read Nutritional Guidelines Section of Your Guide to Surgery by next session [email or web address] [email or web address] 2. Do not skip meals. 3. Use protein shake 1x per day to replace any skipped meals or for breakfast -Start to try the approved pre-op protein shake options: Slim Fast Advanced Nutrition OR Light Start [place] Breakfast Essentials mixed with 1% or skim milk OR Atkins Protein Shakes (15 gm protein version) OR Glucose Controlled Boost OR OWYN (180 ana, 20 gm protein version) 4. Use the Healthy Plate Method of portion control for lunch and dinner 4 oz lean meat (fish, chicken, pork tenderloin, turkey, seafood, eggs/cheese) 1/2 plate non starchy vegetables (salad, greens, cabbage, spinach, brussels sprouts, broccoli, carrots, celery, peppers, green beans, cauliflower) 1 cup starch/starchy vegetables (corn, peas, beans, winter squash, sweet potato, brown rice, whole grain pasta, whole grain bread products, quinoa) 5. Physical activity: Aim for 20-30 min exercise most days, can start in smaller segments such as 10 min 3 x per day. Add weight resistance exercise 3 days per week. Aim to be less sedentary during the day, aim for activity every hour. Limit TV to 2 hours per day 6. Drink 64 ounces per day water. Fluids should follow these guidelines: No carbonation, no caffeine, no calories, no alcohol. 7. Start to research the post-op vitamins: Some examples of vitamins/mineral companies: - Bariatric Fusion: 4 Complete Multivitamin chewables per day OR 1 Multivitamin capsule and 7768-1291 mg calcium citrate per day OR 2 Multivitamin soft chews per day + 3 calcium citrate soft chews + 1 iron soft chew per day [email or web address] - Skimbl Health: 1 Bariatric Multivitamin w/ iron (capsule or chewable) and 5423-9179 mg calcium citrate per day www.[employer] Books - Bariatric Choice: 1 Once Daily Bariatric Multivitamin capsule and 2917-7090 mg calcium citrate per day OR 4 All-in-One Bariatric Multivitamin chewables per day [email or web address] - Bariatric Advantage: 1 Ultra Solo multivitamin w/ iron (chewable or capsule) OR 2 chewable Advanced Multi EA w/ iron and 0797-1424 mg calcium citrate per day OR 2 Multi Chewy Bites and 5293-0897 mg calcium citrate and 45-60 mg iron per day [email or web address] - Bariatric Pal: 1 Multivitamin One (chewable or capsule) and 3831-9611 mg calcium citrate per day OR 4 All-in-One Multivitamin chewables per day [email or web address] [email or web address]/[email or web address]-vitamins - Barilife: 1 Just One Bariatric Multivitamin w/ iron (chewable or capsule) and 0202-3216 mg calcium citrate per day www.[email or web address] - Barimelts: 2 Multivitamin w/ iron tablets and 0343-4939 mg calcium citrate per day [email or web address] Pre-op goal weight: maintain current weight Protein needs: 68 gm per day Nutrition Monitoring & Evaluation: 1-2 pounds weight loss per week Need for Follow up: 3-4 weeks, [phone] documented in this encounter [facility] 11-06-2023 Note HNO ID: [id number] Author: ROLF PATINO RD Service: ? Author Type: Registered Dietitian Type: Progress Notes Filed: 11/06/2023 08:26 Note Text: [facility] Nutrition Therapy: Virtual Consult - Initial Assessment I have communicated my name and active licensure. The patient?s identity and physical location were verified at the time of this visit. Either the patient or their legal player services representative has been informed of the risks and benefits of -- and alternatives to -- treatment through a remote evaluation and consents to proceed with the evaluation remotely. Nutrition Diagnosis: Overweight/obesity, related to, food/nutrition - related knowledge deficit, as evidenced by BMI above normative standard for age and gender. RECOMMENDED MALNUTRITION DIAGNOSIS: NO MALNUTRITION IDENTIFIED NUTRITION CARE PLAN Nutrition Intervention 11/06/2023: Modify type and amount of food and beverage 1. Read Nutritional Guidelines Section of Your Guide to Surgery by next session [email or web address] 2. Do not skip meals. 3. Use protein shake 1x per day to replace any skipped meals or for breakfast -Start to try the approved pre-op protein shake options: Slim Fast Advanced Nutrition OR Light Start Sealevel Breakfast Essentials mixed with 1% or skim milk OR Atkins Protein Shakes (15 gm protein version) OR Glucose Controlled Boost OR OWYN (180 ana, 20 gm protein version) 4. Use the Healthy Plate Method of portion control for lunch and dinner 4 oz lean meat (fish, chicken, pork tenderloin, turkey, seafood, eggs/cheese) 1/2 plate non starchy vegetables (salad, greens, cabbage, spinach, brussels sprouts, broccoli, carrots, celery, peppers, green beans, cauliflower) 1 cup starch/starchy vegetables (corn, peas, beans, winter squash, sweet potato, brown rice, whole grain pasta, whole grain bread products, quinoa) 5. Physical activity: Aim for 20-30 min exercise most days, can start in smaller segments such as 10 min 3 x per day. Add weight resistance exercise 3 days per week. Aim to be less sedentary during the day, aim for activity every hour. Limit TV to 2 hours per day 6. Drink 64 ounces per day water. Fluids should follow these guidelines: No carbonation, no caffeine, no calories, no alcohol. 7. Start to research the post-op vitamins: Some examples of vitamins/mineral companies: - Bariatric Fusion: 4 Complete Multivitamin chewables per day OR 1 Multivitamin capsule and 3629-6600 mg calcium citrate per day OR 2 Multivitamin soft chews per day + 3 calcium citrate soft chews + 1 iron soft chew per day [email or web address] - Procare Health: 1 Bariatric Multivitamin w/ iron (capsule or chewable) and 4929-7077 mg calcium citrate per day www.Plum [employer].CoreTrace - Bariatric Choice: 1 Once Daily Bariatric Multivitamin capsule and 5988-2855 mg calcium citrate per day OR 4 All-in-One Bariatric Multivitamin chewables per day [email or web address].CoreTrace - Bariatric Advantage: 1 Ultra Solo multivitamin w/ iron (chewable or capsule) OR 2 chewable Advanced Multi EA w/ iron and 3781-0700 mg calcium citrate per day OR 2 Multi Chewy Bites and 9532-8126 mg calcium citrate and 45-60 mg iron per day [email or web address] - Bariatric Pal: 1 Multivitamin One (chewable or capsule) and 7106-4611 mg calcium citrate per day OR 4 All-in-One Multivitamin chewables per day www.[employer]olar.[employer].CoreTrace/colle ctions/bariatric-vitamins - Barilife: 1 Just One Bariatric Multivitamin w/ iron (chewable or capsule) and 7497-3182 mg calcium citrate per day www.[email or web address].CoreTrace - Barimelts: 2 Multivitamin w/ iron tablets and 9176-8189 mg calcium citrate per day www.[email or web address].CoreTrace Pre-op goal weight: maintain current weight Protein needs: 68 gm per day Nutrition Monitoring AND Evaluation: 1-2 pounds weight loss per week Need for Follow up: 3-4 weeks, [phone] Patient presents for initial MNT consult in preparation for bariatric surgery. Patient is interested in RYGB with Dr. Ansari. Height and weight discussed today. Presents with class II obesity, Body mass index is 36.33 kg/m?.. Significant medical comorbidities include Hyperlipidemia, DM, and HTN. Most recent HgbA1c is 6.9%. Patient has reasonable weight loss expectations, anticipating weight loss of 55 pounds following surgery(30%TWL), indicating a desired weight of 125 pounds. Patient has good understanding of weight loss surgery and nutritional implications following surgery. Previous diet attempts include WW, Slim Fast, AOM therapy, Noom, and self-directed low carb diets. Weight history significant for weight cycling. Greatest barrier to weight loss in the past has been consistency. Diet recall indicates consistent meal pattern with no missed meals. Some inconsistent and insufficient protein intake. Fluids not meeting recommendations due to SSBs a (more content not included)... [facility] 11-06-2023 History of Presen t illness Narrative [facility] Nutrition Therapy: Virtual Consult - Initial Assessment I have communicated my name and active licensure. The patient s identity and physical location were verified at the time of this visit. Either the patient or their legal player services representative has been informed of the risks and benefits of -- and alternatives to -- treatment through a remote evaluation and consents to proceed with the evaluation remotely. Nutrition Diagnosis: Overweight/obesity, related to, food/nutrition - related knowledge deficit, as evidenced by BMI above normative standard for age and gender. RECOMMENDED MALNUTRITION DIAGNOSIS: NO MALNUTRITION IDENTIFIED NUTRITION CARE PLAN Nutrition Intervention 11/06/2023: Modify type and amount of food and beverage 1. Read Nutritional Guidelines Section of Your Guide to Surgery by next session [email or web address] la=en 2. Do not skip meals. 3. Use protein shake 1x per day to replace any skipped meals or for breakfast -Start to try the approved pre-op protein shake options: Slim Fast Advanced Nutrition OR Light Start Sealevel Breakfast Essentials mixed with 1% or skim milk OR Atkins Protein Shakes (15 gm protein version) OR Glucose Controlled Boost OR OWYN (180 ana, 20 gm protein version) 4. Use the Healthy Plate Method of portion control for lunch and dinner 4 oz lean meat (fish, chicken, pork tenderloin, turkey, seafood, eggs/cheese) 1/2 plate non starchy vegetables (salad, greens, cabbage, spinach, brussels sprouts, broccoli, carrots, celery, peppers, green beans, cauliflower) 1 cup starch/starchy vegetables (corn, peas, beans, winter squash, sweet potato, brown rice, whole grain pasta, whole grain bread products, quinoa) 5. Physical activity: Aim for 20-30 min exercise most days, can start in smaller segments such as 10 min 3 x per day. Add weight resistance exercise 3 days per week. Aim to be less sedentary during the day, aim for activity every hour. Limit TV to 2 hours per day 6. Drink 64 ounces per day water. Fluids should follow these guidelines: No carbonation, no caffeine, no calories, no alcohol. 7. Start to research the post-op vitamins: Some examples of vitamins/mineral companies: - Bariatric Fusion: 4 Complete Multivitamin chewables per day OR 1 Multivitamin capsule and 7240-2225 mg calcium citrate per day OR 2 Multivitamin soft chews per day + 3 calcium citrate soft chews + 1 iron soft chew per day www.bariatricfusion.com - Procare Health: 1 Bariatric Multivitamin w/ iron (capsule or chewable) and 7321-7698 mg calcium citrate per day www.[email or web address].CoreTrace - Bariatric Choice: 1 Once Daily Bariatric Multivitamin capsule and 5541-4690 mg calcium citrate per day OR 4 All-in-One Bariatric Multivitamin chewables per day www.bariatricchoHow do you roll?.CoreTrace - Bariatric Advantage: 1 Ultra Solo multivitamin w/ iron (chewable or capsule) OR 2 chewable Advanced Multi EA w/ iron and 9956-5747 mg calcium citrate per day OR 2 Multi Chewy Bites and 8296-2924 mg calcium citrate and 45-60 mg iron per day www.bariatricadVMware.CoreTrace - Bariatric Pal: 1 Multivitamin One (chewable or capsule) and 7924-8641 mg calcium citrate per day OR 4 All-in-One Multivitamin chewables per day www.OncoGenex/colle ctions/bariatric-vitamins - Barilife: 1 Just One Bariatric Multivitamin w/ iron (chewable or capsule) and 7783-5064 mg calcium citrate per day www.[employer].CoreTrace - Barimelts: 2 Multivitamin w/ iron tablets and 1744-9858 mg calcium citrate per day www.barimelts.CoreTrace Pre-op goal weight: maintain current weight Protein needs: 68 gm per day Nutrition Monitoring & Evaluation: 1-2 pounds weight loss per week Need for Follow up: 3-4 weeks, [phone] Patient presents for initial MNT consult in preparation for bariatric surgery. Patient is interested in RYGB with Dr. Ansari. Height and weight discussed today. Presents with class II obesity, Body mass index is 36.33 kg/m .. Significant medical comorbidities include Hyperlipidemia, DM, and HTN. Most recent HgbA1c is 6.9%. Patient has reasonable weight loss expectations, anticipating weight loss of 55 pounds following surgery(30%TWL), indicating a desired weight of 125 pounds. Patient has good understanding of weight loss surgery and nutritional implications following surgery. Previous diet attempts include WW, Slim Fast, AOM therapy, Noom, and self-directed low carb diets. Weight history significant for weight cycling. Greatest barrier to weight loss in the past has been consistency. Diet recall indicates consistent meal pattern with no missed meals. Some inconsistent and insufficient protein intake. Fluids not meeting recommendations due to SSBs and insufficient daily water intake. Physical activity is consistent, although suspect low in intensity and duration. Hertel body weight: 124 lbs. Excess body weight: 56 lbs.(Based on initial 180# with Dr. Ansari) Goal weight pre-op: 175 lbs. Protein needs estimated: 68 gm (1.2 g protein/kg IBW) Patient meets the National Institutes of Health guidelines for weight loss surgery and has MMO Insurance therefore is required to complete 0 months of Nutrition Intervention for clearance for surgery. Today is visit 1 of 0. Patient does meet National Institutes Health guidelines for weight loss surgery, however needs to demonstrate consistent effort in making dietary changes before being cleared for surgery. It is anticipated that the patient will need at least 1-2 nutritional follow-up visits prior to clearance for surgery. 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 RMR can't be calculated - Weight unrecorded in last 120 days. Malnutrition Screening Significant unintentional weight loss? No Eating less than 75% of usual intake for more than 2 weeks? No Potential Signs of Inflammation: no identifiable sources Education Materials Provided: BMI Nutrition Guidelines:Guide to Surgery READINESS TO LEARN Cognitive ability: Alert and oriented Motivation to learn: Interested Family support: Unable to assess - Family not present Instruction provided to: Patient Patient learns best by: Multiple Methods Factors affecting learning: None Physical limitations affecting learning: None Referred by: Elan URIARTE Billing Type: Initial Assess/15 min 2 units SIGNATURE: Rolf Patino RD PATIENT NAME: Angelique Wynne DATE: 11/06/2023 TIME: 7:50 AM PAGER: N/A documented in this encounter [facility] 11-05-2023 Note HNO ID: [id number] Author: ?, ?, ? Service: ? Author Type: ? Type: Progress Notes Filed: 11/10/2023 12:39 Note Text: Nomad # [id number] , date shipped out 11-05-23 [employer] only Tracking mailout: [id number] Tracking return: [id number] [facility] 10-21-2023 Note HNO ID: [id number] Author: ?, ?, ? Service: ? Author Type: ? Type: Progress Notes Filed: 11/10/2023 12:39 Note Text: Rescheduled 11/05. [facility] 10-21-2023 Note HNO ID: [id number] Author: ?, ?, ? Service: ? Author Type: ? Type: Progress Notes Filed: 11/10/2023 12:39 Note Text: Sleep Study Check-In Documentation Date: October 21, 2023 Name: Angelique Wynne Comments: HST was returned in work order. 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 Romi Clark [facility] 10-21-2023 History of Presen t illness Narrative Assessment NEW BARIATRIC PATIENT PATIENT NAME: Angelique Wynne REASON FOR CONSULT: Morbid Obesity REQUESTING PHYSICIAN: Jewel DATE of SERVICE: 10/20/2023 TIME of SERVICE: 2:10 PM PCP: Luis Staley MD CC: Morbid Obesity HPI: Ms. Wynne is a 53 year old female who is referred for evaluation for Bariatric surgery. Patient does not have any specific complaints today. Anterior proctosigmoidectomy, low colorectal anastomosis. (2007) Patient presents to clinic today for work up for Bariatric surgery. She has been considering surgery for some time as she is set to retire from her job soon. She has been in [facility] for few years and hopes bariatric surgery will help her get off the Trulicity. Patient has been obese since young adulthood. She has tried multiple diets, OTC medications to with only 10 pound weight loss each time over he span of 6-8 months. Her goal weight is 120 pounds. Currently on a regular diet. Patient's obesity related chronic medical conditions include: Diabetes: Yes Hypertension: Yes Hyperlipedemia:Yes OA:No JANA: No DVT/PE:No Gastroesophageal reflux: Yes EGD: Yes Patient is inclined towards: bypass Patient's goal weight is 120 pounds. 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 Other and unspecified hyperlipidemia Personal history of malignant neoplasm of rectum, rectosigmoid junction, and anus PAST SURGICAL HISTORY: PAST SURGICAL HISTORY Procedure Laterality Date COLECTOMY PARTIAL W/ANASTOMOSIS low anterior resection 31ceea anastamosis COLON SURGERY HX COLONOSCOPY FLX DX W/COLLJ SPEC WHEN PFRMD clean anastamosis COLONOSCOPY FLX DX W/COLLJ SPEC WHEN PFRMD 10/23/09, 11/05/11 clean anastamosis - recommend 3 year follow up COLONOSCOPY FLX DX W/COLLJ SPEC WHEN PFRMD 01/03/15 clean anastamosis - recommend 5 year follow up COLONOSCOPY FLX DX W/COLLJ SPEC WHEN PFRMD 01/06/2020 Colonoscopy COLONOSCOPY W/BIOPSY SINGLE/MULTIPLE 09/02/07 EGD TRANSORAL BIOPSY SINGLE/MULTIPLE 09/02/07 EGD TRANSORAL BIOPSY SINGLE/MULTIPLE INSJ TUNNELED CTR VAD W/SUBQ PORT AGE 5 YR/> 11/20/2007 Left Subclavian REMOVED PAST SURGICAL HISTORY OF 2004 needle biopsy of the left breast SOCIAL HISTORY: Social History Tobacco Use Smoking status: Never Smokeless tobacco: Never Vaping Use Vaping Use: Never used Substance Use Topics Alcohol use: Yes Comment: Rarely Drug use: No ALLERGIES: ALLERGIES Allergen Reactions Oxaliplatin Anaphylaxis Went to [facility] ER 02/08/08 FAMILY HISTORY: FAMILY HISTORY Adopted: Yes Problem Relation Age of Onset Diabetes Father Heart Father 62 [place] Hypertension Father Heart Sister cancer--possible heart attack with chemo other (Crohn's Disease) Daughter MEDICATIONS: Prior to Admission Medications: lisinopril (ZESTRIL) 20 mg tablet Take 1 tablet by mouth once daily. Lancets lancets Use with blood glucose test once daily. Insulin Dep? Yes blood sugar diagnostic test strip Use with blood glucose test once daily, Insulin Dep? No dulaglutide (TRULICITY) 4.5 mg/0.5 mL pen injector Inject 4.5 mg subcutaneously one time a week. atorvastatin (LIPITOR) 40 mg tablet Take 1 tablet by mouth daily at bedtime. For cholesterol. Blood-Glucose Meter Test One time a day. Blood Glucose Control, Normal soln Use as directed No current facility-administered medications for this visit. FAMILY HISTORY: FAMILY HISTORY Adopted: Yes Problem Relation Age of Onset Diabetes Father Heart Father 62 [place] Hypertension Father Heart Sister cancer--possible heart attack with chemo other (Crohn's Disease) Daughter Review of Systems: PAIN ASSESSMENT: Negative for pain, history of chronic pain, or current treatment for a chronic pain condition. GENERAL: No weight loss, malaise or fevers. RESPIRATORY: Negative for cough, hemoptysis, wheezing, COPD, dyspnea or shortness of breath CARDIOVASCULAR: Negative for chest pain, leg swelling, hypertension, CHF or palpitations The remainder of the review of systems is negative. PHYSICAL EXAMINATION: BP 149/74 Pulse 76 Temp 36.7 C (98 F) (Temporal) Ht 149.9 cm (4' 11.02 ) Wt 81.6 kg (180 lb) LMP 09/19/2017 SpO2 95% BMI 36.34 kg/m General appearance: Morbidly obese Skin: Skin color, texture, turgor normal, no suspicious rashes or lesions Head: Normocephalic, no masses, lesions, tenderness or abnormalities Eyes: Anicteric sclera. Pupils are equally round and reactive to light. Extraocular movements are intact. Ears: External ears normal, canals clear Nose/Sinuses: Nares normal, septum midline, mucosa normal, no drainage or sinus tenderness Oropharynx: Lips, mucosa, and tongue normal, teeth and gums normal, oropharynx normal Neck: Supple, no adenopathy; thyroid symmetric, normal size, no bruits Back: Normal exam Lungs: Lungs clear to auscultation. No wheezing, rhonchi, rales. Heart: RRR without murmur, gallop, or rubs. No ectopy Abdomen: Normal abdominal exam, Abdomen soft, non-tender. Bowel sounds normal. No masses, organomegaly. Large midline laparotomy scar from 2008 Extremities: No deformities, edema, skin discoloration, clubbing or cyanosis. Good capillary refill. Musculoskeletal: No joint swelling, deformity, or tenderness Peripheral pulses: Normal Neuro: Gait normal. Reflexes normal and symmetric. Sensation grossly intact. IMPRESSION Morbid Obesity PLAN: Patient is a very pleasant 53 year old with morbid obesity, patient of Luis Staley MD with a Body mass index is 36.34 kg/m ., PMHX of HTN, DM (Trulicity, HbA1C 6.9 10/17/2023), HLD, minimal GERD, s/p Exploratory Laparotomy, LAR for rectal CA in 2007. Patient is here today seeking information regarding weight loss in order to stop trulicity. Her other most significant history is a history of an open low anterior resection for rectal cancer. She is currently in remission and has been for many years. On examination she has a midline laparotomy that extends approximately 6 cm above the umbilicus. I have discussed in detail patients options including sleeve gastrectomy and Myrtle-en-Y gastric bypass. Based on patient's BMI and medical co morbidities patient would be a candidate for either sleeve gastrectomy as she has very minimal GERD symptoms and is not on any medications or Myrtle-en-Y gastric bypass. We have discussed these options in great detail we are currently bleeding tumors laparoscopic possible open Myrtle-en-Y gastric bypass as she prefers to have an operation with best long-term outcomes even if it needs to be done in an open fashion. On examination a lot of her epigastrium was of the midline incision. Patient meets NIH criteria for surgery. I have discussed with patient regarding peoperative goal weight prior to liquid fast: Per manual arts therapist Surgically Cleared with completion of the below: 1) Pre op EGD needed: Yes 2) Consults- No Patient will continue through the program and will come back to me prior to planned surgery for discussion regarding options and pre op teaching. I spent approximately 45 minutes with the patient with most of the time spent in counseling. I have reviewed with this patient probably and potential medical and surgical complications of bariatric surgery, nutritional changes, post-operative recovery, and the potential for excess skin and other cosmetic sequelae following surgery and subsequent weight loss. Risks of nicotine before and after bariatric surgery were also discussed with patient. This office note will be sent to the referring provider via electronic medical record and US mail. Broderick Ansari MD documented in this encounter [facility] 10-21-2023 Note HNO ID: [id number] Author: BRODERICK ANSARI MD Service: ? Author Type: Physician Type: Progress Notes Filed: 10/21/2023 10:04 Note Text: Assessment NEW BARIATRIC PATIENT PATIENT NAME: Angelique Wynne REASON FOR CONSULT: Morbid Obesity REQUESTING PHYSICIAN: Self DATE of SERVICE: 10/20/2023 TIME of SERVICE: 2:10 PM PCP: Luis Staley MD CC: Morbid Obesity HPI: Ms. Wynne is a 53 year old female who is referred for evaluation for Bariatric surgery. Patient does not have any specific complaints today. Anterior proctosigmoidectomy, low colorectal anastomosis. (2007) Patient presents to clinic today for work up for Bariatric surgery. She has been considering surgery for some time as she is set to retire from her job soon. [facility] for few years and hopes bariatric surgery will help her get off the [employer]. Patient has been obese since young adulthood. She has tried multiple diets, OTC medications to with only 10 pound weight loss each time over he span of 6-8 months. Her goal weight is 120 pounds. Currently on a regular diet. Patient's obesity related chronic medical conditions include: Diabetes: Yes Hypertension: Yes Hyperlipedemia:Yes OA:No JNAA: No DVT/PE:No Gastroesophageal reflux: Yes EGD: Yes Patient is inclined towards: bypass Patient's goal weight is 120 pounds. 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 Other and unspecified hyperlipidemia Personal history of malignant neoplasm of rectum, rectosigmoid junction, and anus PAST SURGICAL HISTORY: PAST SURGICAL HISTORY Procedure Laterality Date COLECTOMY PARTIAL W/ANASTOMOSIS low anterior resection 31ceea anastamosis COLON SURGERY HX COLONOSCOPY FLX DX W/COLLJ SPEC WHEN PFRMD clean anastamosis COLONOSCOPY FLX DX W/COLLJ SPEC WHEN PFRMD 10/23/09, 11/05/11 clean anastamosis - recommend 3 year follow up COLONOSCOPY FLX DX W/COLLJ SPEC WHEN PFRMD 01/03/15 clean anastamosis - recommend 5 year follow up COLONOSCOPY FLX DX W/COLLJ SPEC WHEN PFRMD 01/06/2020 Colonoscopy COLONOSCOPY W/BIOPSY SINGLE/MULTIPLE 09/02/07 EGD TRANSORAL BIOPSY SINGLE/MULTIPLE 09/02/07 EGD TRANSORAL BIOPSY SINGLE/MULTIPLE INSJ TUNNELED CTR VAD W/SUBQ PORT AGE 5 YR/> 11/20/2007 Left Subclavian REMOVED PAST SURGICAL HISTORY OF 2004 needle biopsy of the left breast SOCIAL HISTORY: Social History Tobacco Use Smoking status: Never Smokeless tobacco: Never Vaping Use Vaping Use: Never used Substance Use Topics Alcohol use: Yes Comment: Rarely Drug use: No ALLERGIES: ALLERGIES Allergen Reactions Oxaliplatin Anaphylaxis Went to [facility] ER 02/08/08 FAMILY HISTORY: FAMILY HISTORY Adopted: Yes Problem Relation Age of Onset Diabetes Father Heart Father 62 [place] Hypertension Father Heart Sister cancer--possible heart attack with chemo other (Crohn's Disease) Daughter MEDICATIONS: Prior to Admission Medications: lisinopril (ZESTRIL) 20 mg tablet Take 1 tablet by mouth once daily. Lancets lancets Use with blood glucose test once daily. Insulin Dep? Yes blood sugar diagnostic test strip Use with blood glucose test once daily, Insulin Dep? No dulaglutide (TRULICITY) 4.5 mg/0.5 mL pen injector Inject 4.5 mg subcutaneously one time a week. atorvastatin (LIPITOR) 40 mg tablet Take 1 tablet by mouth daily at bedtime. For cholesterol. Blood-Glucose Meter Test One time a day. Blood Glucose Control, Normal soln Use as directed No current facility-administered medications for this visit. FAMILY HISTORY: FAMILY HISTORY Adopted: Yes Problem Relation Age of Onset Diabetes Father Heart Father 62 [place] Hypertension Father Heart Sister cancer--possible heart attack with chemo other (Crohn's Disease) Daughter Review of Systems: PAIN ASSESSMENT: Negative for pain, history of chronic pain, or current treatment for a chronic pain condition. GENERAL: No weight loss, malaise or fevers. RESPIRATORY: Negative for cough, hemoptysis, wheezing, COPD, dyspnea or shortness of breath CARDIOVASCULAR: Negative for chest pain, leg swelling, hypertension, CHF or palpitations The remainder of the review of systems is negative. PHYSICAL EXAMINATION: BP 149/74 Pulse 76 Temp 36.7 ?C (98 ?F) (Temporal) Ht 149.9 cm (4' 11.02 ) Wt 81.6 kg (180 lb) LMP 09/19/2017 SpO2 95% BMI 36.34 kg/m? General appearance: Morbidly obese Skin: Skin color, texture, turgor normal, no suspicious rashes or lesions Head: Normocephalic, no masses, lesions, tenderness or abnormalities Eyes: Anicteric sclera. Pupils (more content not included)... [facility] 10-21-2023 Nurse Note What is the reason for your visit today? New BMI Who is your referring physician? Program Are you having poor oral intake? NO Have you had unintentional weight loss of 15 lbs/7 Kg in the last 3-6 months? NO Bowels: vary Wound: Temperature: No Drains: No [facility] 10-21-2023 Nurse Note What is the reason for your visit today? New BMI Who is your referring physician? Program Are you having poor oral intake? NO Have you had unintentional weight loss of 15 lbs/7 Kg in the last 3-6 months? NO Bowels: vary Wound: Temperature: No Drains: No documented in this encounter [facility] 10-20-2023 Instructions Alanis Avitia RN - 10/20/2023 2:[address] Ansari has requested a pre operative upper endoscopy (EGD) for your bariatric surgery. This procedure is to examine your stomach and small intestines. To schedule an Upper Endoscopy (EGD): Call [phone] -Select Option to schedule an appointment -Request to schedule an upper endoscopy -There are multiple [facility] locations to choose from and the manufacturing scheduler will assist with appointment for procedure. What is upper endoscopy? Upper endoscopy is a routine, outpatient procedure in which the inside of the upper digestive system is examined. The procedure is commonly used to help identify the causes of: Abdominal or chest pain Nausea and vomiting Heartburn Bleeding Swallowing disorders Endoscopy can also help identify inflammation, ulcers and tumors. Upper endoscopy is more accurate than x-rays for detecting abnormal growths and for examining the inside of the upper digestive system. The improved accuracy is especially important if you have had lbott-nlydecoaa-wiocn surgery in the past. How is an upper endoscopy done? During the procedure, a physician uses an endoscope (a long, thin, flexible instrument about 1/2 inch in diameter) to examine the inside of the upper digestive system. Abnormalities can be treated through the endoscope. Polyps (usually benign growths) can be identified and removed, and tissue samples (biopsies) can be taken for analysis. Procedures such as stretching narrowed areas, removing swallowed objects or treating bleeding from the upper digestive system can also be performed as part of upper endoscopy. What do I need to do before the procedure? Special conditions Tell your physician if you are , have a lung or heart condition, or if you are allergic to any medications. If you are taking blood-thinning medications -- such as Coumadin or Plavix -- these medications may have to be stopped for a period of time before the endoscopy. Please discuss this with your physician prior to the procedure. If you have diabetes and use insulin, you must adjust the dosage of insulin the day of the test. Your primary physician will help you with this adjustment. Bring your diabetes medication with you so you can take it after the procedure. Eating and drinking An endoscopy requires that you have an empty stomach before the procedure. Do not eat any solid food for 8 hours before the procedure. You may drink clear liquids up until 4 hours before the procedure. Clear liquids include clear broth, hard candy, plain Jell-O , black coffee, black tea, apple juice, jarrett saul, 7UP , sam, John-Aid , Gatorade , Hi-C and popsicles. Transportation You will need to bring a responsible adult with you to accompany you home after the procedure. You should not drive or operate machinery for at least 8 hours after the procedure. The sedation given during the procedure causes drowsiness, dizziness and impairs your judgment, making it unsafe for you to drive or operate machinery. On the day of the procedure A physician will explain the procedure in detail, including possible complications and side effects. The physician will also answer any questions you may have. What happens during the procedure? The procedure is performed by an experienced endoscopy physician. You are asked to wear a hospital gown and remove your eyeglasses and dentures. A local anesthetic (pain-relieving medication) may be applied at the back of your throat. You are given a pain reliever and a sedative intravenously (in your vein). You will feel relaxed and drowsy. A mouthpiece is placed in your mouth. It does not interfere with your breathing. You will lie on your left side during the procedure. The physician inserts an endoscope into your mouth, through your esophagus (the food pipe leading from your mouth into your stomach) and into your stomach. The endoscope does not interfere with your breathing. The procedure lasts from 15 to 20 minutes. What happens after the procedure? You will stay in a recovery room for about 30 minutes for observation. You may feel a temporary soreness in your throat. Lozenges may help. The physician who performs the endoscopy will send the test results to your primary or referring physician. Your physician will discuss the results with you after the procedure. If the results indicate that prompt medical attention is needed, the necessary arrangements will be made and your referring physician will be notified. A responsible adult must accompany you home. Do not drive or operate machinery for at least 8 hours after the procedure. Alanis Gray RN documented in this encounter [facility] 10-17-2023 Note HNO ID: [id number] Author: EARLINE ZABALA LPN Service: ? Author Type: LICENSED NURSE Type: Progress Notes Filed: 10/17/2023 11:30 Note Text: Patient presents for EKG per Rachel Mcmillan CNP. Denies any problems at this time. Tolerated procedure well. Earline Zabala LPN [facility] 10-17-2023 History of Presen t illness Narrative Patient presents for EKG per Rachel Mcmillan CNP. Denies any problems at this time. Tolerated procedure well. Earline Zabala LPN documented in this encounter [facility] 10-17-2023 History of Presen t illness Narrative Radiology Service Progress Note PATIENT NAME: Angelique Wynne DATE OF SERVICE: October 17, 2023 TIME: 10:37 AM PATIENT IDENTITY VERIFICATION COMPLETED USING TWO (2) IDENTIFIERS: Name and Date of confirmed by patient verbally. FALL SCREENING: Has the patient had 2 falls in the last year or 1 fall with injury or currently using an Ambulatory Assistive Device (Walker, Cane, Wheelchair, Crutches, etc.)? No PATIENT GENDER DATA: Female. status: : No status: NO. PATIENT RELEVANT IMPLANT DATA REVIEWED: Yes PATIENT PRESENTS WITH AN IMPLANTABLE OR ATTACHED SUPERVISOR OF INSTRUCTION: No RADIOLOGY DEPARTMENT: General X-ray: Exam(s) Completed: Chest X-Ray PERIPHERAL IV DATA: Not applicable SIGNED BY: RT Jose(Mallika) October 17, 2023 10:37 AM documented in this encounter [facility] 10-17-2023 Note HNO ID: [id number] Author: CHIDI CONNER RT(Mallika) Service: ? Author Type: Wharf Hand Type: Progress Notes Filed: 10/17/2023 10:45 Note Text: Radiology Service Progress Note PATIENT NAME: Angelique Wynne DATE OF SERVICE: October 17, 2023 TIME: 10:37 AM PATIENT IDENTITY VERIFICATION COMPLETED USING TWO (2) IDENTIFIERS: Name and Date of confirmed by patient verbally. FALL SCREENING: Has the patient had 2 falls in the last year or 1 fall with injury or currently using an Ambulatory Assistive Device (Walker, Cane, Wheelchair, Crutches, etc.)? No PATIENT GENDER DATA: Female. status: : No status: NO. PATIENT RELEVANT IMPLANT DATA REVIEWED: Yes PATIENT PRESENTS WITH AN IMPLANTABLE OR ATTACHED SUPERVISOR OF INSTRUCTION: No RADIOLOGY DEPARTMENT: General X-ray: Exam(s) Completed: Chest X-Ray PERIPHERAL IV DATA: Not applicable SIGNED BY: RT Jose(R) October 17, 2023 10:37 AM [facility] 10-17-2023 History of Presen t illness Narrative Radiology Service Progress Note PATIENT NAME: Angelique Wynne DATE OF SERVICE: October 17, 2023 TIME: 2:55 PM PATIENT IDENTITY VERIFICATION COMPLETED USING TWO (2) IDENTIFIERS: Name and Date of confirmed by patient verbally. FALL SCREENING: Has the patient had 2 falls in the last year or 1 fall with injury or currently using an Ambulatory Assistive Device (Walker, Cane, Wheelchair, Crutches, etc.)? No PATIENT GENDER DATA: Female. status: : No status: NO. PATIENT RELEVANT IMPLANT DATA REVIEWED: Not Applicable PATIENT PRESENTS WITH AN IMPLANTABLE OR ATTACHED SUPERVISOR OF INSTRUCTION: No RADIOLOGY DEPARTMENT: Ultrasound PERIPHERAL IV DATA: Not applicable SIGNED BY: Joseline Jaquez RDMS RVT October 17, 2023 2:55 PM documented in this encounter [facility] 10-17-2023 Note HNO ID: [id number] Author: JOSELINE JAQUEZ RDMS Service: ? Author Type: Inside Barrel Lathe Operator Type: Progress Notes Filed: 10/17/2023 14:55 Note Text: Radiology Service Progress Note PATIENT NAME: Angelique Wynne DATE OF SERVICE: October 17, 2023 TIME: 2:55 PM PATIENT IDENTITY VERIFICATION COMPLETED USING TWO (2) IDENTIFIERS: Name and Date of confirmed by patient verbally. FALL SCREENING: Has the patient had 2 falls in the last year or 1 fall with injury or currently using an Ambulatory Assistive Device (Walker, Cane, Wheelchair, Crutches, etc.)? No PATIENT GENDER DATA: Female. status: : No status: NO. PATIENT RELEVANT IMPLANT DATA REVIEWED: Not Applicable PATIENT PRESENTS WITH AN IMPLANTABLE OR ATTACHED SUPERVISOR OF INSTRUCTION: No RADIOLOGY DEPARTMENT: Ultrasound PERIPHERAL IV DATA: Not applicable SIGNED BY: Joseline Jaquez RDMS RVT October 17, 2023 2:55 PM [facility] 10-15-2023 Note HNO ID: [id number] Author: ?, ?, ? Service: ? Author Type: ? Type: Progress Notes Filed: 11/10/2023 12:39 Note Text: Nomad# [id number] +gps Date shipped out 10/14 [employer] - [employer] Tracking Mailout: [id number] Tracking Return: [id number] [facility] 10-14-2023 Note HNO ID: [id number] Author: VERO SEGUNDO III, PhD Service: ? Author Type: Physician Type: Progress Notes Filed: 11/10/2023 12:39 Note Text: October 14, 2023 Standing PSG Orders signed in the last 90 days None Future PSG Orders signed in the last 90 days Ordered Auth. provider HOME SLEEP APNEA TEST (HSAT) [[id number]] 10/02/23 Rachel Mcmillan APRN.ASTROPHYSICS TEACHER Assoc. diagnoses: Class 2 severe obesity with serious comorbidity and body mass index (BMI) of 35.0 to 35.9 in adult, unspecified obesity type (HCC) [E66.01, Z68.35] Q: Indications: A: Obstructive sleep apnea Q: STOP-BANG conditions - Select All That Apply: A: BMI > 35 kg/m2 A2: AGE > 50 A3: high blood PRESSURE A4: SNORING that is loud or disruptive Q: Current use of supplemental oxygen during sleep period?: A: No CONSULT TO SLEEP MEDICINE - ADULT [[id number]] 10/02/23 Rachel Mcmillan APRN.ASTROPHYSICS TEACHER Assoc. diagnoses: Class 2 severe obesity with serious comorbidity and body mass index (BMI) of 35.0 to 35.9 in adult, unspecified obesity type (HCC) [E66.01, Z68.35] Q: Does consulting provider have [facility] access?: A: Yes All Prior Sleep Studies (past 365 days) 10/02/2023 Sleep Studies HOME SLEEP APNEA TEST (HSAT) HOME SLEEP APNEA TEST (HSAT) Order Status: Ordered, Future Expires: 10/01/24 CONSULT TO SLEEP MEDICINE - ADULT CONSULT TO SLEEP MEDICINE - ADULT Order Status: Ordered, Future BMI Readings from Last 2 Encounters: 10/02/23 : 35.95 kg/m? 06/13/23 : 34.96 kg/m? 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 Indications for study: JANA suspected without comorbid medical or sleep disorders Sleep study to be performed: Home Sleep Apnea Test (HSAT) Special instructions: None-follow laboratory protocol Katiana Hodgsonalan [facility] - Sleep Medicine Staff Note: I have read the above protocol, edited as needed, and agree to the plan. Vero Segundo III, PhD 8:05 PM, 10/14/2023 [facility] 10-14-2023 Note HNO ID: [id number] Author: ?, ?, ? Service: ? Author Type: ? Type: Progress Notes Filed: 11/10/2023 12:39 Note Text: October 14, 2023 An order has been received for Home Sleep Apnea Test (HSAT) from Rachel Gracia APRN.lucien LANDEROS. [facility] Staff. Visit prep complete. Comments :No The sleep study is scheduled for 10/18. Insurance: Payor: MMO / Plan: MMO SUPERMED PPO / Product Type: PPO / Payer/Plan Subscr Sex Relation Sub. Ins. ID Effective Group Num 1. MMO - MMO SUP* ANGELIQUE WYNNE 1970 Female Self [id number] 11/30/18 [id number] [address] Anali Polanco [facility] 10-06-2023 Note HNO ID: [id number] Author: RACHEL ESCAALNTE PSYD Service: ? Author Type: Psychologist Type: Progress Notes Filed: 10/08/2023 08:53 Note Text: [facility] EVALUATION DATE OF SERVICE: 10/07/2023 TIME OF SERVICE: 8:30AM to 9:36AM COST CENTER: [facility] CPT CODE: - 63423 Brief Emotional/Behavioral Assessment with scoring/documentation [id number] Virtual Psych Diagnostic Eval BILLING CODE: JAMAL ELIZALDE MAIN Fink BMI Surgical Pathway Visit type: Psychology Visit SESSION #: 1 The patient signed the Informed Consent for Psychological Evaluation AND Care Form via Instant API (see consent dated 09/30/23), and the [facility] health care insurance benefits, fees for service, emergency procedures, and the limits of confidentiality that may pertain with any given case were discussed with the patient. The patient was given a copy of the consent form via Instant API. I have communicated my name and active licensure. The patient's identity and physical location were verified at the time of this visit. Either the patient or their legal player services representative has been informed of the risks and benefits of -- and alternatives to -- treatment through a remote evaluation and consents to proceed with the evaluation remotely. This evaluation is NOT intended for forensic, disability or child custody purposes. Upon completion of risk/benefit analysis, the patient's presenting problem and apparent condition are considered appropriate for virtual format. The patient does appear to have sufficient knowledge and skills in the use of relevant technology to benefit from virtual format. Platform: Zoom for Healthcare Address of Patient During Time of Virtual Visit: Pt work at [address] [place] [address] Emergency Contact: Chuck Wynne (Spouse) at [phone] IDENTIFYING INFORMATION Ms. Angelique Wynne is a 53 year old female. She was referred by Dr. Ansari. Ms. Wynne is seeking unsure surgery (leaning towards gastric bypass) for Class II obesity. COLLATERAL PARTIES PRESENT: none. MOTIVATION FOR SURGERY / UNDERSTANDING OF PROCEDURE / EXPECTATIONS: Ms. Wynne notes she is motivated for surgery by reducing medications and improving quality of life (prior to penitentiary). The patient has a fair to good understanding of the surgery, risks, and benefits. She has talked with other people who have undergone the procedure (several friends, coworker). Specific areas of understanding that should be addressed include nutrition after surgery and risks associated with surgery. The patient has not attended a weight loss surgery support group but is watching patients on [employer]. The patient initially denied any specific weight loss goal in favor of improved health and reducing medications. She later voiced hopes to lose 53 lbs. following surgery over 12 months. Other expectations include maintaining activity and decreased pain. Educated patient regarding expected weight loss after surgical procedure and timeline of weight loss/surgery recovery. CAPACITY TO CONSENT: Ms. Wynne evidences the following concerns regarding capacity to consent: none noted. MEDICAL PROBLEMS ACTIVE PROBLEM LIST Mixed Hyperlipidemia Essential Hypertension Esophagitis, Unspecified Acute Gastritis Without Mention of Hemorrhage Herpes Simplex Diabetes Mellitus Without Complication (Hcc) Vitamin D Deficiency Personal History of Rectal Cancer Obesity, Class II, Bmi 35-39.9 Past surgeries? Yes PAST SURGICAL HISTORY Procedure Laterality Date COLECTOMY PARTIAL W/ANASTOMOSIS low anterior resection 31ceea anastamosis COLON SURGERY HX COLONOSCOPY FLX DX W/COLLJ SPEC WHEN PFRMD clean anastamosis COLONOSCOPY FLX DX W/COLLJ SPEC WHEN PFRMD 10/23/09, 11/05/11 clean anastamosis - recommend 3 year follow up COLONOSCOPY FLX DX W/COLLJ SPEC WHEN PFRMD 01/03/15 clean anastamosis - recommend 5 year follow up COLONOSCOPY FLX DX W/COLLJ SPEC WHEN PFRMD 01/06/2020 Colonoscopy COLONOSCOPY W/BIOPSY SINGLE/MULTIPLE 09/02/07 EGD TRANSORAL BIOPSY SINGLE/MULTIPLE 09/02/07 EGD TRANSORAL BIOPSY SINGLE/MULTIPLE INSJ TUNNELED CTR VAD W/SUBQ PORT AGE 5 YR/> 11/20/2007 Left Subclavian REMOVED PAST SURGICAL HISTORY OF 2004 needle biopsy of the left breast History of psychological complications post-surgery? No MEDICATIONS Current Outpatient Medications Medication Sig lisinopril (ZESTRIL) 20 mg tablet Take 1 tablet by mouth once daily. Lancets lancets Use with blood glucose test once daily. Insulin Dep? Yes blood sugar diagnostic test strip Use with blood glucose test once daily, Insulin Dep? No dulaglutide (TRULICITY) 4.5 mg/0.5 mL pen injector Inject 4.5 mg subcutaneously one time a week. atorvastatin (LIPITOR) 40 mg tablet Take 1 tablet by mouth daily at bedtime. For cholesterol. Blood-Glucose Meter Test One time a day. Blood Glucose Control, Normal soln (more content not included)... [facility] 10-02-2023 History of Presen t illness Narrative BMI Obesity Medicine Initial Bariatric Surgery Consult Virtual visit Virtual Visit (Audio/Visual) I have discussed the nature of this visit with the patient which will occur via [facility] (Phone, Virtual Visit) and she agrees to proceed with this interaction . I have communicated my name and active licensure. The patient's identity and physical location were verified at the time of this visit. Either the patient or their legal player services representative has been informed of the risks and benefits of -- and alternatives to -- treatment through a remote evaluation and consents to proceed with the evaluation remotely. BMI Surgical Pathway Visit type: Obesity Medicine Visit Patient Summary:: Angelique Wynne is a 53 year old female who presents on October 02, 2023 for medical assessment of obesity. The patient is interested in laparoscopic gastric bypass myrtle-en-y and has decided to have the procedure with Broderick Ansari MD Weight History: She reports a family history of obesity and early onset weight gain. She states her weight gain is related to the following factors, including reduced physical activity and consumption of unhealthy foods. Weight Graph: (please see graph scanned in chart) Weight Gain Promoting Medications: NO Diet: B: Banana, coffee (2 cups) L: Sandwhich, apple or salad D: Protein, carb, vegetable Snacks: nuts, fruit Beverages: sweet iced tea, water, coffee Characterization of diet:Unstructured, increased consumption of sugar sweetened beverages, and skip meals. History of eating disorders: denies Previous Obesity Treatments: Self directed exercise and dieting Commercial dieting Weight Watchers Slim Fast shakes Previous AOM Rx: Trulicity, plenity Exercise: Regular exercise: 3x/week walks at work (on lunch and breaks) Barriers to regular exercise? None Stress test: no Functional Status: Do heavy work around the house, such as scrubbing floors, lifting or moving heavy furniture (8.00 METs) Patient denies any chest pain or undue shortness of breath with the above physical activity. 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 Lancets lancets Use with blood glucose test once daily. Insulin Dep? Yes blood sugar diagnostic test strip Use with blood glucose test once daily, Insulin Dep? No dulaglutide (TRULICITY) 4.5 mg/0.5 mL pen injector Inject 4.5 mg subcutaneously one time a week. atorvastatin (LIPITOR) 40 mg tablet Take 1 tablet by mouth daily at bedtime. For cholesterol. Blood-Glucose Meter Test One time a day. Blood Glucose Control, Normal soln Use as directed No current facility-administered medications on file prior to visit. ALLERGIES Allergen Reactions Oxaliplatin Anaphylaxis Went to [facility] ER 02/08/08 PAST SURGICAL HISTORY Procedure Laterality Date COLECTOMY PARTIAL W/ANASTOMOSIS low anterior resection 31ceea anastamosis COLON SURGERY HX COLONOSCOPY FLX DX W/COLLJ SPEC WHEN PFRMD clean anastamosis COLONOSCOPY FLX DX W/COLLJ SPEC WHEN PFRMD 10/23/09, 11/05/11 clean anastamosis - recommend 3 year follow up COLONOSCOPY FLX DX W/COLLJ SPEC WHEN PFRMD 01/03/15 clean anastamosis - recommend 5 year follow up COLONOSCOPY FLX DX W/COLLJ SPEC WHEN PFRMD 01/06/2020 Colonoscopy COLONOSCOPY W/BIOPSY SINGLE/MULTIPLE 09/02/07 EGD TRANSORAL BIOPSY SINGLE/MULTIPLE 09/02/07 EGD TRANSORAL BIOPSY SINGLE/MULTIPLE INSJ TUNNELED CTR VAD W/SUBQ PORT AGE 5 YR/> 11/20/2007 Left Subclavian REMOVED PAST SURGICAL HISTORY OF 2004 needle biopsy of the left breast Any problems with anesthesia with the above surgeries: No Patient Active Problem List Obesity, Class II, BMI 35-39.9 Personal history of rectal cancer Diabetes mellitus without complication (HCC) Vitamin D deficiency Herpes simplex Esophagitis, unspecified Acute gastritis without mention of hemorrhage Mixed hyperlipidemia Essential hypertension Resolved Hospital Problems No resolved problems to display. FAMILY HISTORY Adopted: Yes Problem Relation Age of Onset Diabetes Father Heart Father 62 [place] Hypertension Father Heart Sister cancer--possible heart attack with chemo other (Crohn's Disease) Daughter Social History Tobacco Use Smoking status: Never Smokeless tobacco: Never Vaping Use Vaping Use: Never used Substance Use Topics Alcohol use: Yes Comment: Rarely Drug use: No Review Of Systems Skin: negative Respiratory: No history of cough, hemoptysis, asthma, recent chest infection, wheezing Cardiovascular: +HTN-Rx Gastrointestinal: +GERD, hx Rectal CA (s/p- Low anterior resection) Genitourinary: No burning with urination, blood in urine or incontinence. Hematology/Lymphology Negative for prolonged bleeding, bruising easily or swollen nodes Musculoskeletal: no history of gout, NSAID use, or use of a mobility device Psychiatric: negative Endocrine: +[id number] Neuro: No history of headaches, syncope, paralysis, seizures or tremors Physical Exam:(VIRTUAL) Ht 149.9 cm (4' 11 ) Wt 80.7 kg (178 lb) LMP 09/19/2017 BMI 35.95 kg/m BMI = Body mass index is 35.95 kg/m . GENERAL: NAD Impression Angelique Wynne is a 53 year old female with Class II obesity who presented today for medical evaluation as Angelique Wynne prepares for bariatric surgery. She has the following metabolic complications of obesity type 2 diabetes mellitus and hypertension and other medical conditions as noted above. She is a candidate for bariatric and metabolic surgery. she will be evaluated by our multidisciplinary team in preparation for surgery. : Recommend that she should not become for 18-24 months after surgery due to increased risks of micronutrient deficiency. I counseled her on the perioperative use of estrogen therapy, instructing her not to take oral estrogen (eg OCPs) one month before and one month after surgery due to increased VTE risk. We reviewed alternate forms of contraception and encouraged the patient to speak with her physician/provider to formulate a perioperative plan. If she is considering a Myrtle-en Y gastric bypass, I counseled her that oral methods of control may not be as effective after surgery and that they should consider alternate contraception to reduce the risk of . May proceed with bariatric surgery if the baseline ECG normal. No further noninvasive cardiac testing needed as the patient has no intermediate clinical risk factors, (IDDM, renal failure, CHF, CAD, and CVA) and has a normal functional capacity. Plan Based on the severity and resistance of the obesity to more conservative weight loss approaches, I believe a surgical intervention is the best and most appropriate intervention. -The patient has a 0 month insurance requirement prior to surgery. -Reviewed BMI Nutritional Tips for Bariatric Surgery pamphlet -Encouraged the patient to improve physical activity. We discussed the benefits of both cardiovascular and strength exercises. -Discussed the importance of taking post-operative vitamins and reviewed vitamin levels ordered today. Patient understands that any variations of B vitamins or Vitamin D will be corrected pre-operatively. -Labs ordered today: See Epic -CXR, EKG, RUQ US Order placed today -HSAT ordered today/ Consult to sleep medicine I spent a total of 55 minutes on the date of the service which included preparing to see the patient, [id number] patient care, completing clinical documentation, obtaining and/or reviewing separately obtained history, performing a medically appropriate examination, counseling and educating the patient/family/caregiver, ordering medications, tests, or procedures, and independently interpreting results (not separately reported). Rachel Mcmillan APRN.CNP documented in this encounter [facility] 10-02-2023 Note HNO ID: [id number] Author: RACHEL MCMILLAN APRN.CNP Service: ? Author Type: Nurse Practitioner Type: Progress Notes Filed: 10/02/2023 09:09 Note Text: BMI Obesity Medicine Initial Bariatric Surgery Consult Virtual visit Virtual Visit (Audio/Visual) I have discussed the nature of this visit with the patient which will occur via [facility] (Phone, Virtual Visit) and she agrees to proceed with this interaction . I have communicated my name and active licensure. The patient's identity and physical location were verified at the time of this visit. Either the patient or their legal player services representative has been informed of the risks and benefits of -- and alternatives to -- treatment through a remote evaluation and consents to proceed with the evaluation remotely. BMI Surgical Pathway Visit type: Obesity Medicine Visit Patient Summary:: Angelique Wynne is a 53 year old female who presents on October 02, 2023 for medical assessment of obesity. The patient is interested in laparoscopic gastric bypass myrtle-en-y and has decided to have the procedure with Broderick Ansari MD Weight History: She reports a family history of obesity and early onset weight gain. She states her weight gain is related to the following factors, including reduced physical activity and consumption of unhealthy foods. Weight Graph: (please see graph scanned in chart) Weight Gain Promoting Medications: NO Diet: B: Banana, coffee (2 cups) L: Sandwhich, apple or salad D: Protein, carb, vegetable Snacks: nuts, fruit Beverages: sweet iced tea, water, coffee Characterization of diet:Unstructured, increased consumption of sugar sweetened beverages, and skip meals. History of eating disorders: denies Previous Obesity Treatments: Self directed exercise and dieting Respectance dieting Weight Watchers Slim Fast shakes Previous AOM Rx: Trulicnell, plenity Exercise: Regular exercise: 3x/week walks at work (on lunch and breaks) Barriers to regular exercise? None Stress test: no Functional Status: Do heavy work around the house, such as scrubbing floors, lifting or moving heavy furniture (8.00 METs) Patient denies any chest pain or undue shortness of breath with the above physical activity. 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 Lancets lancets Use with blood glucose test once daily. Insulin Dep? Yes blood sugar diagnostic test strip Use with blood glucose test once daily, Insulin Dep? No dulaglutide (TRULICITY) 4.5 mg/0.5 mL pen injector Inject 4.5 mg subcutaneously one time a week. atorvastatin (LIPITOR) 40 mg tablet Take 1 tablet by mouth daily at bedtime. For cholesterol. Blood-Glucose Meter Test One time a day. Blood Glucose Control, Normal soln Use as directed No current facility-administered medications on file prior to visit. ALLERGIES Allergen Reactions Oxaliplatin Anaphylaxis Went to [facility] ER 02/08/08 PAST SURGICAL HISTORY Procedure Laterality Date COLECTOMY PARTIAL W/ANASTOMOSIS low anterior resection 31ceea anastamosis COLON SURGERY HX COLONOSCOPY FLX DX W/COLLJ SPEC WHEN PFRMD clean anastamosis COLONOSCOPY FLX DX W/COLLJ SPEC WHEN PFRMD 10/23/09, 11/05/11 clean anastamosis - recommend 3 year follow up COLONOSCOPY FLX DX W/COLLJ SPEC WHEN PFRMD 01/03/15 clean anastamosis - recommend 5 year follow up COLONOSCOPY FLX DX W/COLLJ SPEC WHEN PFRMD 01/06/2020 Colonoscopy COLONOSCOPY W/BIOPSY SINGLE/MULTIPLE 09/02/07 EGD TRANSORAL BIOPSY SINGLE/MULTIPLE 09/02/07 EGD TRANSORAL BIOPSY SINGLE/MULTIPLE INSJ TUNNELED CTR VAD W/SUBQ PORT AGE 5 YR/> 11/20/2007 Left Subclavian REMOVED PAST SURGICAL HISTORY OF 2004 needle biopsy of the left breast Any problems with anesthesia with the above surgeries: No Patient Active Problem List Obesity, Class II, BMI 35-39.9 Personal history of rectal cancer Diabetes mellitus without complication (HCC) Vitamin D deficiency Herpes simplex Esophagitis, unspecified Acute gastritis without mention of hemorrhage Mixed hyperlipidemia Essential hypertension Resolved Hospital Problems No resolved problems to display. FAMILY HISTORY Adopted: Yes Problem Relation Age of Onset Diabetes Father Heart Father dec (more content not included)... [facility] 09-08-2023 Miscellaneous Notes September 09, 2023 PID: [id number] Angelique Wynne [address] [place] [address] Dear Ms. Wynne, We are pleased to inform you that the results of your recent breast imaging exam on 09/05/2023 are normal. Early detection of cancer is very important. We also understand recommendations regarding breast cancer screening are controversial. Please discuss with your primary care provider which strategy is best for you and whether a mammogram is right for you. Your imaging studies and report will be kept on file at [facility] as part of your permanent medical record and are available for your continuing care. Thank you for allowing us to help in meeting your health care needs. Sincerely, Dr. Patterson Interpreting Radiologist [facility] (Normal over 40) documented in this encounter [facility] 09-05-2023 History of Presen t illness Narrative Radiology Service Progress Note PATIENT NAME: Angelique Wynne DATE OF SERVICE: September 05, 2023 TIME: 9:32 AM PATIENT IDENTITY VERIFICATION COMPLETED USING TWO (2) IDENTIFIERS: Name and Date of confirmed by patient verbally. FALL SCREENING: Has the patient had 2 falls in the last year or 1 fall with injury or currently using an Ambulatory Assistive Device (Walker, Cane, Wheelchair, Crutches, etc.)? No PATIENT GENDER DATA: Female. status: : No status: NO. PATIENT RELEVANT IMPLANT DATA REVIEWED: Yes PATIENT PRESENTS WITH AN IMPLANTABLE OR ATTACHED SUPERVISOR OF INSTRUCTION: No RADIOLOGY DEPARTMENT: Mammography PERIPHERAL IV DATA: Not applicable SIGNED BY: RT Jazmin(R) September 05, 2023 9:32 AM documented in this encounter [facility] 09-05-2023 Note HNO ID: [id number] Author: PUJA ARCHULETA RT(Mallika) Service: Radiology Author Type: Wharf Hand Type: Progress Notes Filed: 09/05/2023 09:32 Note Text: Radiology Service Progress Note PATIENT NAME: Angelique Wynne DATE OF SERVICE: September 05, 2023 TIME: 9:32 AM PATIENT IDENTITY VERIFICATION COMPLETED USING TWO (2) IDENTIFIERS: Name and Date of confirmed by patient verbally. FALL SCREENING: Has the patient had 2 falls in the last year or 1 fall with injury or currently using an Ambulatory Assistive Device (Walker, Cane, Wheelchair, Crutches, etc.)? No PATIENT GENDER DATA: Female. status: : No status: NO. PATIENT RELEVANT IMPLANT DATA REVIEWED: Yes PATIENT PRESENTS WITH AN IMPLANTABLE OR ATTACHED SUPERVISOR OF INSTRUCTION: No RADIOLOGY DEPARTMENT: Mammography PERIPHERAL IV DATA: Not applicable SIGNED BY: RT Jazmin(R) September 05, 2023 9:32 AM [facility] 08-13-2023 Miscellaneous Notes Patient has been identified by name and date of : Yes Requested Prescriptions Pending Prescriptions Disp Refills lisinopril (ZESTRIL) 20 mg tablet 90 tablet 1 Sig: Take 1 tablet by mouth once daily. RX INSTRUCTIONS: Patient aware RX will be sent to pharmacy. No need to notify patient. PARUL 06/13/23 Scheduled 12/05/23 Taty Walker LPN documented in this encounter [facility] 06-13-2023 Note HNO ID: [id number] Author: LUIS STALEY MD Service: ? Author Type: Physician Type: Progress Notes Filed: 06/13/2023 17:03 Note Text: Patient presents with: 6 Month Exam HPI: Patient presents today for office visit for follow up. No concerns today. Overall feeling well. HTN: Continues on Lisinopril 20 mg daily Does not monitor BP Denies chest pain and shortness of breath Denies headaches and dizziness Denies palpitations No syncopal episodes Denies edema HLD: Continues on Atorvastatin 40 mg daily No myalgias DM: Doesn't check BS often. Maybe once or twice a month. Continues on Trulicity weekly No unexpected weight loss No bowel issues. We follow th cea. Component Latest Ref Rng AND Units 06/06/2023 Hemoglobin A1C 4.3 - 5.6 % 6.8 (H) Estimated Average Glucose mg/dL 148 MEDICATIONS: Current Outpatient Medications Medication Sig lisinopril (ZESTRIL) 20 mg tablet Take 1 tablet by mouth once daily. Lancets lancets Use with blood glucose test once daily. Insulin Dep? Yes blood sugar diagnostic test strip Use with blood glucose test once daily, Insulin Dep? No dulaglutide (TRULICITY) 4.5 mg/0.5 mL pen injector Inject 4.5 mg subcutaneously one time a week. atorvastatin (LIPITOR) 40 mg tablet Take 1 tablet by mouth daily at bedtime. For cholesterol. Blood-Glucose Meter Test One time a day. Blood Glucose Control, Normal soln Use as directed No current facility-administered medications for this visit. 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 Other and unspecified hyperlipidemia Personal history of malignant neoplasm of rectum, rectosigmoid junction, and anus PAST SURGICAL HISTORY Procedure Laterality Date COLECTOMY PARTIAL W/ANASTOMOSIS low anterior resection 31ceea anastamosis COLON SURGERY HX COLONOSCOPY FLX DX W/COLLJ SPEC WHEN PFRMD clean anastamosis COLONOSCOPY FLX DX W/COLLJ SPEC WHEN PFRMD 10/23/09, 11/05/11 clean anastamosis - recommend 3 year follow up COLONOSCOPY FLX DX W/COLLJ SPEC WHEN PFRMD 01/03/15 clean anastamosis - recommend 5 year follow up COLONOSCOPY FLX DX W/COLLJ SPEC WHEN PFRMD 01/06/2020 Colonoscopy COLONOSCOPY W/BIOPSY SINGLE/MULTIPLE 09/02/07 EGD TRANSORAL BIOPSY SINGLE/MULTIPLE 09/02/07 EGD TRANSORAL BIOPSY SINGLE/MULTIPLE INSJ TUNNELED CTR VAD W/SUBQ PORT AGE 5 YR/> 11/20/2007 Left Subclavian REMOVED PAST SURGICAL HISTORY OF 2004 needle biopsy of the left breast FAMILY HISTORY Adopted: Yes Problem Relation Age of Onset Diabetes Father Heart Father 62 from [place] Hypertension Father Heart Sister cancer--possible heart attack with chemo other (Crohn's Disease) Daughter Social History Tobacco Use Smoking status: Never Smokeless tobacco: Never Vaping Use Vaping Use: Never used Substance Use Topics Alcohol use: Yes Comment: Rarely Drug use: No Reviewed current medications, allergies, past medical history, surgical history, family history and social history today. REVIEW OF SYSTEMS All other reviewed and negative other than HPI. HEALTH MAINTENANCE: Reviewed health maintenance issues today and recommended the following in detail. BP Controlled (<130/80) Never done Dilated Retinal Exam-see yearly. Pap Testing due on 11/19/2022 HPV Testing due on 11/19/2022 Influenza Vaccine(1) due on 01/31/2023 Covid-19 Vaccine(2022- season) due on 01/31/2023 Depression Assessment Never done Mammogram Screening due on 06/17/2023 Diabetic Foot Exam due on 06/17/2023 VITALS: BP 122/70 Pulse 95 Ht 152.4 cm (5') Wt 81.2 kg (179 lb) LMP 09/19/2017 SpO2 97% BMI 34.96 kg/m? Last 4 Encounter Wt Readings: Date: Wt: 06/13/2023 81.2 kg (179 lb) 12/13/2022 82.6 kg (182 lb) 06/17/2022 81.5 kg (179 lb 9.6 oz) 12/19/2021 83 kg (183 lb) PHYSICAL EXAMINATION: General appearance: Well appearing, alert, in no acute distress, well-hydrated, well nourished. Skin: Skin color, texture, turgor normal, no suspicious rashes or lesions Head: Normocephalic, no masses, lesions, tenderness or abnormalities Neck: Supple, no adenopathy; thyroid symmetric, normal size, no bruits Lungs: Lungs clear to auscultation. No wheezing, rhonchi, rales Heart: RRR without murmur, gallop, or rubs. No ectopy Abdomen: Normal abdominal exam, Abdomen soft, non-tender. Bowel sounds normal. No masses, organomegaly Extremities: No deformities, edema, skin discoloration, clubbing or cyanosis. Good capillary refill. Musculoskeletal: No joint swelling, deformity, or tenderness Feet:Shoes and socks removed, No deformities, ulcers, callu (more content not included)... [facility] 02-07-2023 Miscellaneous Notes Last office visit: 12/13/22 F/u scheduled: 06/13/23 Merle Fuentes Ma documented in this encounter [facility] 12-13-2022 History of Presen t illness Narrative Patient presents with: 6 Month Exam HPI: Patient presents today for office visit for follow up. HTN: Patient is compliant with meds Yes Denies side effects: Yes. Chest pain: No. Dyspnea: No. Edema: No. Palpitations: No. DM: Reports overall feeling well. Medication side effects: Yes. Home sugar check frequency/results: not recently. Checks maybe once a month. Avg 140 when checked Unexpected weight loss: No. Polyuria, polydipsia: No. HYPERLIPIDEMIA: Patient is taking medications: Yes. Patient denies myalgias: Yes. Patient denies gi upset: Yes ONC:no longer seeing oncology. They have recommended we simply do CEA. No changes in bowels. Component Latest Ref Rng & Units 12/06/2022 WBC 3.70 - 11.00 k/uL 10.16 RBC 3.90 - 5.20 m/uL 5.10 Hemoglobin 11.5 - 15.5 g/dL 14.5 Hematocrit 36.0 - 46.0 % 45.1 MCV 80.0 - 100.0 fL 88.4 MCH 26.0 - 34.0 pg 28.4 MCHC 30.5 - 36.0 g/dL 32.2 RDW-CV 11.5 - 15.0 % 12.4 Platelet Count 150 - 400 k/uL 315 MPV 9.0 - 12.7 fL 11.6 Neut% % 64.3 Abs Neut (ANC) 1.45 - 7.50 k/uL 6.54 Lymph% % 27.0 Abs Lymph 1.00 - 4.00 k/uL 2.74 Broome% % 5.5 Abs Broome <0.87 k/uL 0.56 Eosin% % 1.8 Abs Eosin <0.46 k/uL 0.18 Baso% % 0.8 Abs Baso <0.11 k/uL 0.08 Immature Gran % % 0.6 IMMATURE GRANS (ABS) <0.10 k/uL 0.06 NRBC /100 WBC 0.0 Absolute nRBC <0.01 k/uL <0.01 DTYPE Auto Protein, Total 6.3 - 8.0 g/dL 7.0 Albumin 3.9 - 4.9 g/dL 4.4 Calcium 8.5 - 10.2 mg/dL 9.7 Bilirubin, Total 0.2 - 1.3 mg/dL 0.6 Alkaline Phosphatase 34 - 123 U/L 74 AST 13 - 35 U/L 20 ALT 7 - 38 U/L 23 Glucose 74 - 99 mg/dL 113 (H) BUN 7 - 21 mg/dL 11 Creatinine 0.58 - 0.96 mg/dL 0.79 Sodium 136 - 144 mmol/L 141 Potassium 3.7 - 5.1 mmol/L 4.7 Chloride 97 - 105 mmol/L 101 CO2 22 - 30 mmol/L 27 Anion Gap 9 - 18 mmol/L 13 eGFR >=60 mL/min/1.73m 89 Cholesterol, Total <200 mg/dL 171 Triglyceride <150 mg/dL 116 HDL Cholesterol >39 mg/dL 51 Non HDL Cholesterol <130 mg/dL 120 Fasting Time hrs 14 VLDL Cholesterol <30 mg/dL 23 TC:HDL Ratio <5.10 3.35 LDL Cholesterol <100 mg/dL 97 LDL:HDL Ratio <2.54 1.90 Creatinine, Ur Random (UCRR) 20.0 - 300.0 mg/dL 180.9 Albumin, Urine Random mg/L <12.0 Albumin/Creat Ratio <30 mg/g <7 Hemoglobin A1C 4.3 - 5.6 % 6.8 (H) Estimated Average Glucose mg/dL 148 CEA <=2.9 ng/mL 0.5 MEDICATIONS: Current Outpatient Medications Medication Sig lisinopril (ZESTRIL) 20 mg tablet Take 1 tablet by mouth once daily. atorvastatin (LIPITOR) 40 mg tablet Take 1 tablet by mouth daily at bedtime. For cholesterol. dulaglutide (TRULICITY) 3 mg/0.5 mL pen injector Inject 3 mg subcutaneously one time a week. Blood-Glucose Meter Test One time a day. Blood Glucose Control, Normal soln Use as directed blood sugar diagnostic test strip Use with blood glucose test once daily, Insulin Dep? No Lancets lancets Use with blood glucose test once daily. Insulin Dep? Yes dulaglutide (TRULICITY) 1.5 mg/0.5 mL pen injector Inject 1.5 mg subcutaneously one time a week. Inject once per week. Discard Pen After, while higher dose of trulicity is unavailable. No current facility-administered medications for this visit. 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 Other and unspecified hyperlipidemia Personal history of malignant neoplasm of rectum, rectosigmoid junction, and anus PAST SURGICAL HISTORY Procedure Laterality Date COLECTOMY PARTIAL W/ANASTOMOSIS low anterior resection 31ceea anastamosis COLON SURGERY HX COLONOSCOPY FLX DX W/COLLJ SPEC WHEN PFRMD clean anastamosis COLONOSCOPY FLX DX W/COLLJ SPEC WHEN PFRMD 10/23/09, 11/05/11 clean anastamosis - recommend 3 year follow up COLONOSCOPY FLX DX W/COLLJ SPEC WHEN PFRMD 01/03/15 clean anastamosis - recommend 5 year follow up COLONOSCOPY FLX DX W/COLLJ SPEC WHEN PFRMD 01/06/2020 Colonoscopy COLONOSCOPY W/BIOPSY SINGLE/MULTIPLE 09/02/07 EGD TRANSORAL BIOPSY SINGLE/MULTIPLE 09/02/07 EGD TRANSORAL BIOPSY SINGLE/MULTIPLE INSJ TUNNELED CTR VAD W/SUBQ PORT AGE 5 YR/> 11/20/2007 Left Subclavian REMOVED PAST SURGICAL HISTORY OF 2004 needle biopsy of the left breast FAMILY HISTORY Adopted: Yes Problem Relation Age of Onset Diabetes Father Heart Father 62 from [place] Hypertension Father Heart Sister cancer--possible heart attack with chemo other (Crohn's Disease) Daughter Social History Tobacco Use Smoking status: Never Smokeless tobacco: Never Vaping Use Vaping Use: Never used Substance Use Topics Alcohol use: Yes Comment: Rarely Drug use: No Reviewed current medications, allergies, past medical history, surgical history, family history and social history today. REVIEW OF SYSTEMS All other reviewed and negative other than HPI. HEALTH MAINTENANCE: Reviewed health maintenance issues today and recommended the following in detail. HEPATITIS B(1 of 3 - 3-dose series) Never done PNEUMOCOCCAL(1 - PCV) Never done DTAP,TDAP,TD(1 - Tdap) Never done SHINGRIX VACCINE(1 of 2) Never done DILATED RETINAL EXAM -does annually PAP TESTING due on 11/19/2022 HPV TESTING due on 11/19/2022 VITALS: BP 130/76 Pulse 84 Ht 152.4 cm (5') Wt 82.6 kg (182 lb) LMP 09/19/2017 SpO2 97% BMI 35.54 kg/m Last 4 Encounter Wt Readings: Date: Wt: 06/17/2022 81.5 kg (179 lb 9.6 oz) 12/19/2021 83 kg (183 lb) 06/20/2021 81.2 kg (179 lb) 12/19/2020 81.2 kg (179 lb) PHYSICAL EXAMINATION: General appearance: Well appearing, alert, in no acute distress, well-hydrated, well nourished. Skin: Skin color, texture, turgor normal, no suspicious rashes or lesions Head: Normocephalic, no masses, lesions, tenderness or abnormalities Eyes: Anicteric sclera. Pupils are equally round and reactive to light. Extraocular movements are intact. Lungs: Lungs clear to auscultation. No wheezing, rhonchi, rales Heart: RRR without murmur, gallop, or rubs. No ectopy Abdomen: Normal abdominal exam, Abdomen soft, non-tender. Bowel sounds normal. No masses, organomegaly Extremities: No deformities, edema, skin discoloration, clubbing or cyanosis. Good capillary refill. Peripheral pulses: Normal Neuro: Negative. ASSESSMENT/PLAN: 1. Essential hypertension - ICD9: 401.9, ICD10: I10 (primary diagnosis) - Controlled - Continue current medications 2. Mixed hyperlipidemia - ICD9: 272.2, ICD10: E78.2 - Controlled - Continue current medications 3. Personal history of rectal cancer - ICD9: V10.06, ICD10: Z85.048 -stablel. 4. Diabetes mellitus without complication (HCC) - ICD9: 250.00, ICD10: E11.9 - Controlled - Continue current medications - DULAGLUTIDE 4.5 MG/0.5 ML SUBCUTANEOUS PEN INJECTOR-increase dose. Follow a1c in six months. 5. Vitamin D deficiency - ICD9: 268.9, ICD10: E55.9 - stable. 6. Obesity, Class II, BMI 35-39.9 - ICD9: 278.00, ICD10: E66.9 Luis Staley MD documented in this encounter [facility] 08-08-2022 Miscellaneous Notes Patient has been identified by name and date of : Yes Requested Prescriptions Pending Prescriptions Disp Refills lisinopril (ZESTRIL) 20 mg tablet 90 tablet 1 Sig: Take 1 tablet by mouth once daily. PARUL 06/17/22 RX INSTRUCTIONS: Patient aware RX will be sent to pharmacy. No need to notify patient. Carola Green Ma documented in this encounter [facility] 06-17-2022 History of Presen t illness Narrative Radiology Service Progress Note PATIENT NAME: Angleique Wynne DATE OF SERVICE: June 17, 2022 TIME: 9:27 AM PATIENT IDENTITY VERIFICATION COMPLETED USING TWO (2) IDENTIFIERS: Name and Date of confirmed by patient verbally. FALL SCREENING: Has the patient had 2 falls in the last year or 1 fall with injury or currently using an Ambulatory Assistive Device (Walker, Cane, Wheelchair, Crutches, etc.)? No PATIENT GENDER DATA: Female. status: : No status: NO. PATIENT RELEVANT IMPLANT DATA REVIEWED: Not Applicable RADIOLOGY DEPARTMENT: Mammography PERIPHERAL IV DATA: Not applicable SIGNED BY: RT Janine(R) June 17, 2022 9:27 AM documented in this encounter [facility] 12-19-2021 History of Presen t illness Narrative No chief complaint on file. HPI: Patient presents today for office visit for follow up. HTN: Patient is compliant with meds Yes Denies side effects: Yes. Chest pain: No. Dyspnea: No. Edema: No. Palpitations: No. DM: Reports overall feeling well. Medication side effects: Yes. Home sugar check frequency/results:not recently. Were good when checkd. Unexpected weight loss: No. Polyuria, polydipsia: No. HYPERLIPIDEMIA: Patient is taking medications: Yes. Patient denies myalgias: Yes. Patient denies gi upset: Yes ONC:no longer seeing oncology. They have recommended we simply do CEA. No changes in bowels. MEDICATIONS: Current Outpatient Medications Medication Sig atorvastatin (LIPITOR) 40 mg tablet Take 1 tablet by mouth daily at bedtime. For cholesterol. lisinopril (ZESTRIL, PRINIVIL) 20 mg tablet Take 1 tablet by mouth once daily. dulaglutide (TRULICITY) 1.5 mg/0.5 mL pen injector Inject 1.5 mg subcutaneously one time a week. Inject once per week. Discard Pen After Blood-Glucose Meter Test One time a day. Blood Glucose Control, Normal soln Use as directed blood sugar diagnostic test strip Use with blood glucose test once daily, Insulin Dep? No Lancets lancets Use with blood glucose test once daily. Insulin Dep? Yes acetaminophen(TYLENOL EXTRA STRENGTH 500 MG TAB) Take two(2) tablets every six(6) hours as needed for pain. No current facility-administered medications for this visit. 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 Other and unspecified hyperlipidemia Personal history of malignant neoplasm of rectum, rectosigmoid junction, and anus PAST SURGICAL HISTORY Procedure Laterality Date COLECTOMY PARTIAL W/ANASTOMOSIS low anterior resection 31ceea anastamosis COLON SURGERY HX COLONOSCOPY FLX DX W/COLLJ SPEC WHEN PFRMD clean anastamosis COLONOSCOPY FLX DX W/COLLJ SPEC WHEN PFRMD 10/23/09, 11/05/11 clean anastamosis - recommend 3 year follow up COLONOSCOPY FLX DX W/COLLJ SPEC WHEN PFRMD 01/03/15 clean anastamosis - recommend 5 year follow up COLONOSCOPY FLX DX W/COLLJ SPEC WHEN PFRMD 01/06/2020 Colonoscopy COLONOSCOPY W/BIOPSY SINGLE/MULTIPLE 09/02/07 EGD TRANSORAL BIOPSY SINGLE/MULTIPLE 09/02/07 EGD TRANSORAL BIOPSY SINGLE/MULTIPLE INSJ TUNNELED CTR VAD W/SUBQ PORT AGE 3 YR/> 11/20/2007 Left Subclavian REMOVED PAST SURGICAL HISTORY OF 2004 needle biopsy of the left breast FAMILY HISTORY Adopted: Yes Problem Relation Age of Onset Diabetes Father Heart Father 62 from mi Hypertension Father Heart Sister cancer--possible heart attack with chemo other (Crohn's Disease) Daughter Social History Tobacco Use Smoking status: Never Smoker Smokeless tobacco: Never Used Vaping Use Vaping Use: Never used Substance Use Topics Alcohol use: Yes Comment: Rarely Drug use: No Reviewed current medications, allergies, past medical history, surgical history, family history and social history today. REVIEW OF SYSTEMS All other reviewed and negative other than HPI. HEALTH MAINTENANCE: Reviewed health maintenance issues today and recommended the following in detail. PNEUMOCOCCAL(1 - PCV) Never done DTAP,TDAP,TD(1 - Tdap) Never done SHINGRIX VACCINE(1 of 2) Never done MAMMOGRAM -order is in. COVID-19 VACCINE(4 - Booster for Moderna series) due on 09/12/2021 HBA1C due on 12/06/2021 URINE ALBUMIN:CREATININE RATIO due on 12/09/2021 VITALS: BP 118/80 (BP Site: Left Arm, BP Position: Sitting, BP Cuff Size: Regular Adult) Pulse 80 Resp 16 Wt 83 kg (183 lb) LMP 09/19/2017 BMI 35.74 kg/m Last 4 Encounter Wt Readings: Date: Wt: 06/20/2021 81.2 kg (179 lb) 12/19/2020 81.2 kg (179 lb) 12/18/2020 81.6 kg (180 lb) 06/19/2020 79.4 kg (175 lb) PHYSICAL EXAMINATION: General appearance: Well appearing, alert, in no acute distress, well-hydrated, well nourished. Skin: Skin color, texture, turgor normal, no suspicious rashes or lesions Head: Normocephalic, no masses, lesions, tenderness or abnormalities Neck: Supple, no adenopath Lungs: Lungs clear to auscultation. No wheezing, rhonchi, rales Heart: RRR without murmur, gallop, or rubs. No ectopy Abdomen: Normal abdominal exam, Abdomen soft, non-tender. Bowel sounds normal. No masses, organomegaly Extremities: No deformities, edema, skin discoloration, clubbing or cyanosis. Good capillary refill. Musculoskeletal: No joint swelling, deformity, or tenderness ASSESSMENT/PLAN: 1. Essential hypertension - ICD9: 401.9, ICD10: I10 (primary diagnosis) - good control - Continue current medication(s) - Goal of BP <130/80 2. Diabetes mellitus without complication (HCC) - ICD9: 250.00, ICD10: E11.9 Controlled. - Continue current medications - TRULICITY 1.5 MG/0.5 ML SUBCUTANEOUS PEN INJECTOR - CBC + DIFF - COMP METABOLIC PANEL - HGB A1C - ALBUMIN/CREAT RATIO RND UR - HGB A1C - HGB A1C 3. Mixed hyperlipidemia - ICD9: 272.2, ICD10: E78.2 - good control - Continue current medication. 4. Malignant neoplasm of colon, unspecified part of colon (HCC) - ICD9: 153.9, ICD10: C18.9 - CEA BLD Luis Staley RTO in six months and prn. 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 Vail has released her from oncology. Check cea periodically Blood in stool 08/10/2007 12/18/2020 Sebaceous cyst 03/13/2007 12/18/2020 documented as of this encounter (statuses as of 12/13/2022) [facility] History of Past illness Narrative* Problem Noted Date Diagnosed Date Resolved Date Depression 12/21/2010 12/13/2022 Obesity 11/05/2010 12/13/2022 Dysmetabolic syndrome 10/03/20102013 Unspecified vitamin D deficiency 07/09/2010 12/18/2020 Other and unspecified ovarian cyst 09/29/2008 12/13/2022 Personal history of malignan t neoplasm of rectum, rectosigmoid junction, and anus 08/15/2008 12/18/2020 Anemia in neoplastic disease 03/28/2008 12/13/2022 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 Vail has released her from oncology. Check cea periodically Blood in stool 08/10/2007 12/18/2020 Sebaceous cyst 03/13/2007 12/18/2020 documented as of this encounter (statuses as of 02/08/2023) [facility] History of Past illness Narrative* Problem Noted Date Diagnosed Date Resolved Date Depression 12/21/2010 12/13/2022 Obesity 11/05/2010 12/13/2022 Dysmetabolic syndrome 10/03/20102013 Unspecified vitamin D deficiency 07/09/2010 12/18/2020 Other and unspecified ovarian cyst 09/29/2008 12/13/2022 Personal history of malignan t neoplasm of rectum, rectosigmoid junction, and anus 08/15/2008 12/18/2020 Anemia in neoplastic disease 03/28/2008 12/13/2022 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 Vail has released her from oncology. Check cea periodically Blood in stool 08/10/2007 12/18/2020 Sebaceous cyst 03/13/2007 12/18/2020 documented as of this encounter (statuses as of 04/06/2023) [facility] History of Past illness Narrative* Problem Noted Date Diagnosed Date Resolved Date Depression 12/21/2010 12/13/2022 Obesity 11/05/2010 12/13/2022 Dysmetabolic syndrome 10/03/20102013 Unspecified vitamin D deficiency 07/09/2010 12/18/2020 Other and unspecified ovarian cyst 09/29/2008 12/13/2022 Personal history of malignan t neoplasm of rectum, rectosigmoid junction, and anus 08/15/2008 12/18/2020 Anemia in neoplastic disease 03/28/2008 12/13/2022 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 Vail has released her from oncology. Check cea periodically Blood in stool 08/10/2007 12/18/2020 Sebaceous cyst 03/13/2007 12/18/2020 documented as of this encounter (statuses as of 08/13/2023) [facility] History of Past illness Narrative* Problem Noted Date Diagnosed Date Resolved Date Depression 12/21/2010 12/13/2022 Obesity 11/05/2010 12/13/2022 Dysmetabolic syndrome 10/03/20102013 Unspecified vitamin D deficiency 07/09/2010 12/18/2020 Other and unspecified ovarian cyst 09/29/2008 12/13/2022 Personal history of malignan t neoplasm of rectum, rectosigmoid junction, and anus 08/15/2008 12/18/2020 Anemia in neoplastic disease 03/28/2008 12/13/2022 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 Vail has released her from oncology. Check cea periodically Blood in stool 08/10/2007 12/18/2020 Sebaceous cyst 03/13/2007 12/18/2020 documented as of this encounter (statuses as of 09/06/2023) [facility] History of Past illness Narrative* Problem Noted Date Diagnosed Date Resolved Date Depression 12/21/2010 12/13/2022 Obesity 11/05/2010 12/13/2022 Dysmetabolic syndrome 10/03/20102013 Unspecified vitamin D deficiency 07/09/2010 12/18/2020 Other and unspecified ovarian cyst 09/29/2008 12/13/2022 Personal history of malignan t neoplasm of rectum, rectosigmoid junction, and anus 08/15/2008 12/18/2020 Anemia in neoplastic disease 03/28/2008 12/13/2022 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 Vail has released her from oncology. Check cea periodically Blood in stool 08/10/2007 12/18/2020 Sebaceous cyst 03/13/2007 12/18/2020 documented as of this encounter (statuses as of 09/10/2023) [facility] History of Past illness Narrative* Problem Noted Date Resolved Date Dysmetabolic syndrome 10/03/2010 11/03/2013 Unspecified vitamin D deficiency 07/09/2010 12/18/2020 Personal history of malignan t neoplasm of rectum, rectosigmoid junction, and anus 08/15/2008 12/18/2020 Blood in stool 08/10/2007 12/18/2020 Sebaceous cyst 03/13/2007 12/18/2020 documented as of this encounter (statuses as of 12/03/2021) [facility] History of Past illness Narrative* Problem Noted Date Resolved Date Dysmetabolic syndrome 10/03/2010 11/03/2013 Unspecified vitamin D deficiency 07/09/2010 12/18/2020 Personal history of malignan t neoplasm of rectum, rectosigmoid junction, and anus 08/15/2008 12/18/2020 Blood in stool 08/10/2007 12/18/2020 Sebaceous cyst 03/13/2007 12/18/2020 documented as of this encounter (statuses as of 12/19/2021) [facility] History of Past illness Narrative* Problem Noted Date Resolved Date Dysmetabolic syndrome 10/03/2010 11/03/2013 Unspecified vitamin D deficiency 07/09/2010 12/18/2020 Personal history of malignan t neoplasm of rectum, rectosigmoid junction, and anus 08/15/2008 12/18/2020 Blood in stool 08/10/2007 12/18/2020 Sebaceous cyst 03/13/2007 12/18/2020 documented as of this encounter (statuses as of 12/20/2021) [facility] History of Past illness Narrative* Problem Noted Date Resolved Date Dysmetabolic syndrome 10/03/2010 11/03/2013 Unspecified vitamin D deficiency 07/09/2010 12/18/2020 Personal history of malignan t neoplasm of rectum, rectosigmoid junction, and anus 08/15/2008 12/18/2020 Blood in stool 08/10/2007 12/18/2020 Sebaceous cyst 03/13/2007 12/18/2020 documented as of this encounter (statuses as of 08/08/2022) [facility] note* Diagnosis Encounter for screening mammogram for breast cancer documented in this encounter [facility] note* Diagnosis Essential hypertension- Primary Unspecified essential hypertension Diabetes mellitus without complication (HCC) Type II or unspecified type diabetes mellitus without mention of complication, not stated as uncontrolled Mixed hyperlipidemia Malignant neoplasm of colon, unspecified part of colon (HCC) documented in this encounter [facility] note* Diagnosis Diabetes mellitus without complication (HCC) Type II or unspecified type diabetes mellitus without mention of complication, not stated as uncontrolled documented in this encounter [facility] note* Diagnosis Essential hypertension Unspecified essential hypertension documented in this encounter [facility] note* Diagnosis Essential hypertension- Primary Unspecified essential hypertension Mixed hyperlipidemia Personal history of rectal cancer Personal history of malignant neoplasm of rectum, rectosigmoid junction, and anus Diabetes mellitus without complication (HCC) Type II or unspecified type diabetes mellitus without mention of complication, not stated as uncontrolled Vitamin D deficiency Unspecified vitamin D deficiency Obesity, Class II, BMI 35-39.9 Obesity, unspecified documented in this encounter [facility] note* Diagnosis Essential hypertension Unspecified essential hypertension documented in this encounter [facility] note* Diagnosis Encounter for screening mammogram for breast cancer documented in this encounter [facility] note* Diagnosis Essential hypertension Unspecified essential hypertension documented in this encounter [facility] note* Diagnosis Screening breast examination Breast screening, unspecified documented in this encounter [facility] note* Diagnosis Class 2 severe obesity with serious comorbidity and body mass index (BMI) of 35.0 to 35.9 in adult, unspecified obesity type (HCC)- Primary documented in this encounter [facility] note* Diagnosis Class 2 severe obesity with serious comorbidity and body mass index (BMI) of 35.0 to 35.9 in adult, unspecified obesity type (HCC) documented in this encounter [facility] note* Diagnosis Class 2 severe obesity with serious comorbidity and body mass index (BMI) of 35.0 to 35.9 in adult, unspecified obesity type (HCC) documented in this encounter [facility] note* Diagnosis Class 2 severe obesity with serious comorbidity and body mass index (BMI) of 35.0 to 35.9 in adult, unspecified obesity type (HCC) documented in this encounter [facility] note* Diagnosis Class 2 severe obesity with serious comorbidity and body mass index (BMI) of 35.0 to 35.9 in adult, unspecified obesity type (HCC)- Primary documented in this encounter [facility] note* Diagnosis Diabetes mellitus without complication (HCC)- Primary Type II or unspecified type diabetes mellitus without mention of complication, not stated as uncontrolled Obesity, Class II, BMI 35-39.9 Obesity, unspecified Dietary counseling and surveillance Dietary surveillance and counseling documented in this encounter [facility] note* Diagnosis Obesity, Class II, BMI 35-39.9- Primary Obesity, unspecified Class 2 severe obesity with serious comorbidity and body mass index (BMI) of 35.0 to 35.9 in adult, unspecified obesity type (HCC) documented in this encounter [facility] note* Diagnosis Personal history of rectal cancer- Primary Personal history of malignant neoplasm of rectum, rectosigmoid junction, and anus documented in this encounter [facility] note* Diagnosis Obesity, Class II, BMI 35-39.9- Primary Obesity, unspecified Dietary counseling and surveillance Dietary surveillance and counseling documented in this encounter [facility] note* Diagnosis Elevated alkaline phosphatase level- Primary Other nonspecific abnormal serum enzyme levels documented in this encounter [facility] note* Diagnosis Mixed hyperlipidemia- Primary Essential hypertension Unspecified essential hypertension Diabetes mellitus without complication (HCC) Type II or unspecified type diabetes mellitus without mention of complication, not stated as uncontrolled Class 2 severe obesity with serious comorbidity and body mass index (BMI) of 35.0 to 35.9 in adult, unspecified obesity type (HCC) Personal history of rectal cancer Personal history of malignant neoplasm of rectum, rectosigmoid junction, and anus documented in this encounter [facility] note* Diagnosis JANA (obstructive sleep apnea)- Primary Obstructive sleep apnea (adult) (pediatric) Class 2 severe obesity with serious comorbidity and body mass index (BMI) of 35.0 to 35.9 in adult, unspecified obesity type (HCC) [facility] Diagnosis Obesity, Class II, BMI 35-39.9- Primary Obesity, unspecified documented in this encounter [facility] note* Diagnosis Mixed hyperlipidemia Essential hypertension Unspecified essential hypertension documented in this encounter [facility] for referral (narrative)* Diagnostic Procedure Only (Routine) - Pending Review Specialty Diagnoses / Procedures Referred By Lilliam man Referred To Contact [facility] Diagnoses Encounter for screening mammogram for breast cancer Procedures GUICHO SCREENING SCREENING MAMMOGRAPHY BI 2-VIEW BREAST INC Luis Saenz MD [address] [place] [address] [facility] [address] [address] Referral ID Status Reason Start Date Expiration Date Visits Requested Visits Authorized [id number] Pending Review Auto-Generat ed Referral 11/28/2021 12/28/2022 1 1 [facility] for referral (narrative)* Diagnostic Procedure Only (Routine) - Closed Specialty Diagnoses / Procedures Referred By Lilliam man Referred To Contact [facility] Diagnoses Encounter for screening mammogram for breast cancer Procedures GUICHO SCREENING SCREENING MAMMOGRAPHY BI 2-VIEW BREAST INC Luis Saenz MD [address] [place] [address] [facility] [address] [address] Referral ID Status Reason Start Date Expiration Date V isits Requested Visits Authorized [id number] Closed Auto-Generate d Referral 11/28/2021 12/28/2022 1 1 [facility] for referral (narrative)* Outpatient Procedure (Routine) - Authorized Specialty Diagnoses / Procedures Referred By Lilliam man Referred To Contact [facility] Diagnoses Class 2 severe obesity with serious comorbidity and body mass index (BMI) of 35.0 to 35.9 in adult, unspecified obesity type (HCC) Procedures EGD DIAGNOSTIC ESOPHAGOGASTRODUODENOSC OPY TRANSORAL DIAGNOSTIC Ansari, [place] [address] [address] [address] [facility] [address] [place] [address] Referral ID Status Reason Start Date Expiration Date Visits Requested Visits Authorized [id number] Authorized Auto-Generat ed Referral 10/21/2023 10/19/2024 1 1 T [facility] for referral (narrative)* Outpatient Procedure (Routine) - Closed Specialty Diagnoses / Procedures [facility] To [facility] Diagnoses Class 2 severe obesity with serious comorbidity and body mass index (BMI) of 35.0 to 35.9 in adult, unspecified obesity type (HCC) Procedures EGD DIAGNOSTIC ESOPHAGOGASTRODUODENOSC OPY TR[place] [address] [facility] Klarissa [address] [address] [facility] [address] [place] [address] Referral ID Status Reason Start Date Expiration Date V isits Requested Visits Authorized [id number] Closed Auto-Generate d Referral 10/21/2023 10/19/2024 1 1 T [facility] for visit Narrative* Diagnostic Procedure Only (Routine) - Closed Specialty Diagnoses / Procedures Referred By Contac t Referred To Contact [facility] Diagnoses Encounter for screening mammogram for breast cancer Procedures GUICHO SCREENING SCREENING MAMMOGRAPHY BI 2-VIEW BREAST INC CAD Luis Staley MD [address] [place] [address] [facility] [address] [place] [address] Referral ID Status Reason Start Date Expiration Date V isits Requested Visits Authorized [id number] Closed Auto-Generate d Referral 11/28/2021 12/28/2022 1 1 [facility] for visit Narrative* Diagnostic Procedure Only (Routine) - Closed Specialty Diagnoses / Procedures [facility] Referred To Contact [facility] Diagnoses Screening breast examination Procedures GUICHO SCREENING SCREENING MAMMOGRAPHY BI 2-VIEW BREAST INC CAD Luis Staley MD [address] [place] [address] [facility] [address] [place] [address] Referral ID Status Reason Start Date Expiration Date V isits Requested Visits Authorized [id number] Closed Auto-Generate d Referral 06/13/2023 07/12/2024 1 1 [facility] Outpatient Procedure (Routine) - Closed Specialty Diagnoses / Procedures [facility] To [facility] Diagnoses Class 2 severe obesity with serious comorbidity and body mass index (BMI) of 35.0 to 35.9 in adult, unspecified obesity type (HCC) Procedures EGD DIAGNOSTIC ESOPHAGOGASTRODUODENOSC OPY TRANSORAL [place] [address] [address] [place] [address] [facility] [address] [place] [address] Referral ID Status Reason Start Date Expiration Date V isits Requested Visits Authorized [id number] Closed Auto-Generate d Referral 10/21/2023 10/19/2024 1 1 [facility] Advance Directives Documents on File Type Date Recorded 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 Advance Directive(s) Advance Directive(s) 01/06/2020 6:46 AM Advance Directive(s) 12/28/2019 2:58 PM Documents on File Type Date Recorded 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 anation Advance Directive(s) Advance Directive(s) 01/06/2020 6:46 AM Advance Directive(s) 12/28/2019 2:58 PM Reason for Referral Specialty Diagnoses / Procedures Referred By Contac t Referred To Contact Diagnoses Class 2 severe obesity with serious comorbidity and body mass index (BMI) of 35.0 to 35.9 in adult, unspecified obesity type (HCC) Procedures CONSULT TO SLEEP MEDICINE - ADULT OFFICE/OUTPATIENT [facility] HIGH MDM 60 MINUTES Rachel Mcmillan APRN.ASTROPHYSICS TEACHER [address] [place] [address] Referral ID Status Reason Start Date Expiration Date Visits Requested Visits Authorized [id number] Authorized PCP Requested Referral 10/02/2023 12/31/2023 1 1 Specialty Diagnoses / Procedures Referred By Contac t Referred To Contact [facility] Diagnoses Class 2 severe obesity with serious comorbidity and body mass index (BMI) of 35.0 to 35.9 in adult, unspecified obesity type (HCC) Procedures HOME SLEEP APNEA TEST (HSAT) SLEEP STD AIRFLOW HRT RATE&O2 SAT EFFORT UNATT Rachel Mcmillan, CABLE INSTALLER REPAIRER HELPER.ASTROPHYSICS TEACHER [id number] [place] [address] Referral ID Status Reason Start Date Expiration Date Visits Requested Visits Authorized [id number] Authorized Auto-Generat ed Referral 10/02/2023 10/01/2024 1 1 Specialty Diagnoses / Procedures Referred By Contac t Referred To Contact US IMAGING Diagnoses Class 2 severe obesity with serious comorbidity and body mass index (BMI) of 35.0 to 35.9 in adult, unspecified obesity type (HCC) Procedures US ABD RIGHT UPPER QUADRANT US ABDOMINAL REAL TIME W/IMAGE LIMITED Rachel Mcmillan, CABLE INSTALLER REPAIRER HELPER.ASTROPHYSICS TEACHER [address] [id number] [facility] [place] [address] Referral ID Status Reason Start Date Expiration Date Visits Requested Visits Authorized [id number] Authorized Auto-Generat ed Referral 10/02/2023 10/31/2024 1 1 Specialty Diagnoses / Procedures Referred By Contac t [facility]erred [facility] Diagnoses Class 2 severe obesity with serious comorbidity and body mass index (BMI) of 35.0 to 35.9 in adult, unspecified obesity type (HCC) Procedures ECG COMPLETE ECG ROUTINE ECG W/LEAST 12 LDS W/I&R Rachel Mcmillan, CABLE INSTALLER REPAIRER HELPER.ASTROPHYSICS TEACHER [address] [id number] [facility] [place] [address] Referral ID Status Reason Start Date Expiration Date Visits Requested Visits Authorized [id number] Authorized Auto-Generat ed Referral 10/02/2023 10/01/2024 1 1 Summary Purpose Family History No Family History Records Found Additional Source Comments Source Comments (unrecognize d section and content) In the event this informatio n is protected by the Federal Confidentiality of Alcohol and Drug Abuse Patient Records regulations: The Federal rules restrict any use of the information to criminally investigate or prosecute any alcohol or drug abuse patient.[facility] CenterIn the event this information is protected by the Federal Confidentiality of Alcohol and Drug Abuse Patient Records regulations: The Federal rules restrict any use of the information to criminally investigate or prosecute any alcohol or drug abuse patient.[facility] CenterIn the event this information is protected by the Federal Confidentiality of Alcohol and Drug Abuse Patient Records regulations: The Federal rules restrict any use of the information to criminally investigate or prosecute any alcohol or drug abuse patient.[facility] CenterIn the event this information is protected by the Federal Confidentiality of Alcohol and Drug Abuse Patient Records regulations: The Federal rules restrict any use of the information to criminally investigate or prosecute any alcohol or drug abuse patient.[facility] CenterIn the event this information is protected by the Federal Confidentiality of Alcohol and Drug Abuse Patient Records regulations: The Federal rules restrict any use of the information to criminally investigate or prosecute any alcohol or drug abuse patient.[facility] CenterIn the event this information is protected by the Federal Confidentiality of Alcohol and Drug Abuse Patient Records regulations: The Federal rules restrict any use of the information to criminally investigate or prosecute any alcohol or drug abuse patient.[facility] CenterIn the event this information is protected by the Federal Confidentiality of Alcohol and Drug Abuse Patient Records regulations: The Federal rules restrict any use of the information to criminally investigate or prosecute any alcohol or drug abuse patient.[facility] CenterIn the event this information is protected by the Federal Confidentiality of Alcohol and Drug Abuse Patient Records regulations: The Federal rules restrict any use of the information to criminally investigate or prosecute any alcohol or drug abuse patient.[facility] CenterIn the event this information is protected by the Federal Confidentiality of Alcohol and Drug Abuse Patient Records regulations: The Federal rules restrict any use of the information to criminally investigate or prosecute any alcohol or drug abuse patient.[facility] CenterIn the event this information is protected by the Federal Confidentiality of Alcohol and Drug Abuse Patient Records regulations: The Federal rules restrict any use of the information to criminally investigate or prosecute any alcohol or drug abuse patient.[facility] CenterIn the event this information is protected by the Federal Confidentiality of Alcohol and Drug Abuse Patient Records regulations: The Federal rules restrict any use of the information to criminally investigate or prosecute any alcohol or drug abuse patient.[facility] CenterIn the event this information is protected by the Federal Confidentiality of Alcohol and Drug Abuse Patient Records regulations: The Federal rules restrict any use of the information to criminally investigate or prosecute any alcohol or drug abuse patient.[facility] CenterIn the event this information is protected by the Federal Confidentiality of Alcohol and Drug Abuse Patient Records regulations: The Federal rules restrict any use of the information to criminally investigate or prosecute any alcohol or drug abuse patient.[facility] CenterIn the event this information is protected by the Federal Confidentiality of Alcohol and Drug Abuse Patient Records regulations: The Federal rules restrict any use of the information to criminally investigate or prosecute any alcohol or drug abuse patient.[facility] CenterIn the event this information is protected by the Federal Confidentiality of Alcohol and Drug Abuse Patient Records regulations: The Federal rules restrict any use of the information to criminally investigate or prosecute any alcohol or drug abuse patient.[facility] CenterIn the event this information is protected by the Federal Confidentiality of Alcohol and Drug Abuse Patient Records regulations: The Federal rules restrict any use of the information to criminally investigate or prosecute any alcohol or drug abuse patient.[facility] CenterIn the event this information is protected by the Federal Confidentiality of Alcohol and Drug Abuse Patient Records regulations: The Federal rules restrict any use of the information to criminally investigate or prosecute any alcohol or drug abuse patient.[facility] CenterIn the event this information is protected by the Federal Confidentiality of Alcohol and Drug Abuse Patient Records regulations: The Federal rules restrict any use of the information to criminally investigate or prosecute any alcohol or drug abuse patient.[facility] CenterIn the event this information is protected by the Federal Confidentiality of Alcohol and Drug Abuse Patient Records regulations: The Federal rules restrict any use of the information to criminally investigate or prosecute any alcohol or drug abuse patient.[facility] CenterIn the event this information is protected by the Federal Confidentiality of Alcohol and Drug Abuse Patient Records regulations: The Federal rules restrict any use of the information to criminally investigate or prosecute any alcohol or drug abuse patient.[facility] CenterIn the event this information is protected by the Federal Confidentiality of Alcohol and Drug Abuse Patient Records regulations: The Federal rules restrict any use of the information to criminally investigate or prosecute any alcohol or drug abuse patient.[facility] CenterIn the event this information is protected by the Federal Confidentiality of Alcohol and Drug Abuse Patient Records regulations: The Federal rules restrict any use of the information to criminally investigate or prosecute any alcohol or drug abuse patient.[facility] CenterIn the event this information is protected by the Federal Confidentiality of Alcohol and Drug Abuse Patient Records regulations: The Federal rules restrict any use of the information to criminally investigate or prosecute any alcohol or drug abuse patient.[facility] CenterIn the event this information is protected by the Federal Confidentiality of Alcohol and Drug Abuse Patient Records regulations: The Federal rules restrict any use of the information to criminally investigate or prosecute any alcohol or drug abuse patient.[facility] CenterIn the event this information is protected by the Federal Confidentiality of Alcohol and Drug Abuse Patient Records regulations: The Federal rules restrict any use of the information to criminally investigate or prosecute any alcohol or drug abuse patient.[facility] CenterIn the event this information is protected by the Federal Confidentiality of Alcohol and Drug Abuse Patient Records regulations: The Federal rules restrict any use of the information to criminally investigate or prosecute any alcohol or drug abuse patient.[facility] CenterIn the event this information is protected by the Federal Confidentiality of Alcohol and Drug Abuse Patient Records regulations: The Federal rules restrict any use of the information to criminally investigate or prosecute any alcohol or drug abuse patient.[facility] Care Teams (unrecognized sec tion and content) Machine Packer Relationship Specialty Start Date End Date Luis Staley MD [address] [place], [place] [address] PCP - General Family Practice 08/27/13 Machine Packer Relationship Specialty Start Date End Date Luis Staley MD [address] [place] [address] PCP - General Family Practice 08/27/13 Machine Packer Relationship Specialty Start Date End Date Luis Staley MD [address] [place] [address] PCP - General Family Practice 08/27/13 Machine Packer Relationship Specialty Start Date End Date Luis Staley MD [address] [place] [address] PCP - General Family Medicine 08/27/13 Machine Packer Relationship Specialty Start Date End Date Luis Staley MD [address] [place] [address] PCP - General Family Medicine 08/27/13 Machine Packer Relationship Specialty Start Date End Date Luis Staley MD [address] [place] [address] PCP - General Family Medicine 08/27/13 Machine Packer Relationship Specialty Start Date End Date Luis Staley MD [address] [place] [address] PCP - General Family Medicine 08/27/13 Machine Packer Relationship Specialty Start Date End Date Luis Staley MD [address] [place], [place] [address] PCP - General Family Medicine 08/27/13 Machine Packer Relationship Specialty Start Date End Date Luis Staley MD [address] [place] [address] PCP - General Family Medicine 08/27/13 Machine Packer Relationship Specialty Start Date End Date Luis Staley MD [address] [place] [address] PCP - General Family Medicine 08/27/13 Machine Packer Relationship Specialty Start Date End Date Luis Staley MD [address] [place] [address] PCP - General Family Medicine 08/27/13 Machine Packer Relationship Specialty Start Date End Date Luis Staley MD [address] [place] [address] PCP - General Family Medicine 08/27/13 Machine Packer Relationship Specialty Start Date End Date Luis Staley MD [address] [place] [address] PCP - General Family Medicine 08/27/13 Machine Packer Relationship Specialty Start Date End Date Luis Staley MD [address] [place] [address] PCP - General Family Medicine 08/27/13 Machine Packer Relationship Specialty Start Date End Date Luis Staley MD [address] [place], [place] [address] PCP - General Family Medicine 08/27/13 Machine Packer Relationship Specialty Start Date End Date Luis Staley MD [address] [place] [address] PCP - General Family Medicine 08/27/13 Machine Packer Relationship Specialty Start Date End Date Luis Staley MD [address] [place], [place] [id number] PCP - General Family Medicine 08/27/13 Machine Packer Relationship Specialty Start Date End Date Luis Staley MD [address] [place], [place] [address] PCP - General Family Medicine 08/27/13 Machine Packer Relationship Specialty Start Date End Date Luis Staley MD [address] [place], [place] [address] PCP - General Family Medicine 08/27/13 Machine Packer Relationship Specialty Start Date End Date Luis Staley MD [address] [place], [place] [address] PCP - General Family Medicine 08/27/13 Reason for Visit (unrecogniz ed section and content) Reason Comments F/U 6 Month Reason Onset Date Comments Refill Request 08/08/2022 Reason Comments 6 Month Exam Reason Onset Date Comments Refill Request 02/07/2023 Reason Onset Date Comments Refill Request 08/13/2023 Reason Comments Obesity Weight Loss Surgery Reason Comments EKG Specialty Diagnoses / Procedures Referred By Contac t Referred To Contact [facility] Diagnoses Class 2 severe obesity with serious comorbidity and body mass index (BMI) of 35.0 to 35.9 in adult, unspecified obesity type (HCC) Procedures ECG COMPLETE ECG ROUTINE ECG W/LEAST 12 LDS W/I&R Rachel Mcmillan, LESLIE.ASTROPHYSICS TEACHER [address] [place] [address] [facility] [address] [place] [address] Referral ID Status Reason Start Date Expiration Date V isits Requested Visits Authorized [id number] Closed Auto-Generate d Referral 10/02/2023 10/01/2024 1 1 Reason Comments Radiology US Specialty Diagnoses / Procedures Referred By Contac t Referred To Contact [facility] Diagnoses Class 2 severe obesity with serious comorbidity and body mass index (BMI) of 35.0 to 35.9 in adult, unspecified obesity type (HCC) Procedures US ABD RIGHT UPPER QUADRANT US ABDOMINAL REAL TIME W/IMAGE LIMITED Rachel Mcmillan, CABLE INSTALLER REPAIRER HELPER.ASTROPHYSICS TEACHER [address] [phone] [facility] [place] [address] Referral ID Status Reason Start Date Expiration Date V isits Requested Visits Authorized [id number] Closed Auto-Generate d Referral 10/02/2023 10/31/2024 1 1 Reason Comments Consult New BMI Reason Comments Assessment Patient Education Reason Comments Reassessment Patient Education Reason Comments Results Reason Comments New Patient Patient here to disc uss HST results from 11/06/23. Patient needs medical clearance. Specialty Diagnoses / Procedures Referred By Contac t Referred To Contact Diagnoses Class 2 severe obesity with serious comorbidity and body mass index (BMI) of 35.0 to 35.9 in adult, unspecified obesity type (HCC) Procedures CONSULT TO SLEEP MEDICINE - ADULT OFFICE/OUTPATIENT NEW HIGH MDM 60 MINUTES Rachel Mcmillan, CABLE INSTALLER REPAIRER HELPER.ASTROPHYSICS TEACHER [address] [phone] Referral ID Status Reason Start Date Expiration Date V isits Requested Visits Authorized [id number] Closed PCP Requested Referral 10/02/2023 12/31/2023 1 1 Reason Comments Insurance Authorization Reason Onset Date Comments Refill Request 02/04/2024 INFORMATION SOURCE (unrecogn ized section and content) DATE CREATED AUTHOR 02/14/2024 [facility] FOR RECORDS PERTAINING TO PATIENTS WHO ARE OR HAVE BEEN ENROLLED IN A CHEMICAL DEPENDENCY/SUBSTANCEABUSE PROGRAM, SOME INFORMATION MAY BE OMITTED. This clinical summary was aggregated from multiple sources. Caution should be exercised in using it in the provision of clinical care. This summary normalizes information from multiple sources, and as a consequence, information in this document may materially change the coding, format and clinical context of patient data. In addition, data may be omitted in some cases. CLINICAL DECISIONS SHOULD BE BASED ON THE PRIMARY CLINICAL RECORDS. [employer] provides no warranty or guarantee of the accuracy or completeness of information in this document.
[2024-03-20] VITALS (18 sets, daily range): BP systolic 103–168; BP diastolic 51–84; PULSE 76–98; RESP 14–18; TEMP 36.2–37.1; O2SAT 93–98; BMI 35.9; BMI 39.3
[2024-03-20 00:19] LABS: Bacteria 0 SEEN /hpf (None Seen); Mucous, Urine 0 SEEN /hpf (<or=2+); Red Blood Cells-Urine 0 SEEN /hpf (0-5); Squamous Epithelial Cells - UA 0 SEEN /hpf (5-10)
[2024-03-20 00:23] LABS: Color, Urine Yellow (Yellow); Glucose, Dipstick Normal (Normal); Ketone-Dipstick Negative (Negative); Leukocyte Esterase-Dipstick 100 /ul (Negative); Nitrite-Dipstick Negative (Negative); Occult Blood-Urine Negative /ul (Negative); Protein-Dipstick 15 mg/dl (Negative); Urine Bilirubin Dipstick Negative (Negative); Urine Clarity Clear (Clear); Urine Urobilinogen Normal (Normal); Urine pH 6.5 (5.0 - 8.0)
[2024-03-20 00:37] LABS: White Blood Cells 0-5 SEEN /hpf (0-5)
--- NOTE | 2024-03-20 01:25 | PCM.HP.STD ---
HPI - General General Date of Admission: 03/20/24 Date of Service: 03/20/24 Chief Complaint: Abdominal pain, N/V, decreased BM. HPI Narrative The patient is a 54 y/o F w/ PMHx: Obesity, HTN, HLD, Diabetes mellitus type II, Hx Colon CA s/p partial colectomy who presents to the [facility] ED on 03/20/2024 with history of abdominal pain as well as nausea and emesis with symptoms initially starting 2 days prior to ED presentation initially with upper supraumbilical abdominal discomfort eventually moving to the periumbilical area where it has remained with ongoing nausea and emesis with bilious at times occasionally green-black but no blood or coffee-ground emesis with last bowel movement noted to be very small and minimal on morning of day prior to presentation with no recent diarrhea with subjective fevers and chills earlier although she did not check her temperature with no recent ill contacts however she does report previous history of bowel obstruction and notes this is very similar with history of colorectal cancer approximately 16 years prior with resection and anastomosis at that time with no other intra-abdominal surgeries reported. In the ED patient initially reports her pain 4-10 in severity with significant improvement of pain following ED pain regimen intervention. Workup in the ED included CBC with WBC 19, hemoglobin 14.9, platelet 376 with left shift, CMP with glucose 276 otherwise unremarkable, urinalysis with no obvious evidence of UTI, CT abdomen pelvis with a proximal small bowel obstruction located primarily within the left side of the abdomen very suggestive of a closed-loop obstruction secondary either adhesions or an internal hernia. In the ED patient administered 1 L normal saline, morphine 4 mg IV x 1 as well as Zofran 4 mg IV x 1. ED physician discussed complete obstruction with surgery who recommended deferral of NGT given her N/V was resolved currently and surgery requested medicine to admit. [facility] Medical History Obesity Diabetes mellitus, type 2 HLD (hyperlipidemia) Hypertension Colorectal cancer Home Medications ?Medication ?Instructions ?Recorded ?Last Taken ?Type lisinopril 10 mg tablet 10 mg PO DAILY #30 tabs 04/29/17 Unknown Rx atorvastatin 40 mg tablet 40 mg PO QHS cholesterol 03/19/24 Unknown History semaglutide 0.25 mg or 0.5 mg (2 0.5 mg subcut QWEEK 03/19/24 Unknown History mg/3 mL) subcutaneous pen injector (Ozempic) Allergy/AdvReac Type Severity Reaction Status Date / Time oxaliplatin Allergy Anaphylaxis Verified 03/19/24 20:49 Family History (Updated 03/20/24 @ 01:[address] Shira Hernandez MD) Father Diabetes Hypertension ETOH abuse adopted (Patient does not know her maternal family history and only a small portion of her paternal family history.) Surgical History History of colon resection Social History household members: spouse Smoking Status: Never smoker alcohol intake: never substance use type: does not use ROS ROS Narrative Admission Review of Systems: CONSTITUTIONAL: No weight loss, +subjective fever, chills, + weakness or fatigue. HEENT: Eyes: No visual loss, blurred vision, double vision or yellow sclerae. Ears, Nose, Throat: No hearing loss, sneezing, congestion, runny nose or sore throat. SKIN: No rash or itching, lesions, wounds. CARDIOVASCULAR: No chest pain, chest pressure or chest discomfort, palpitations, edema, orthopnea, syncopal events. RESPIRATORY: No shortness of breath, cough or sputum, wheezing, hemoptysis. GASTROINTESTINAL: + anorexia, nausea, vomiting, abdominal pain, decreased stool output. No diarrhea, melena, BRBPR. GENITOURINARY: No dysuria, frequency, urgency or retention. NEUROLOGICAL: No headache, dizziness, syncope, paralysis, ataxia, numbness or tingling in the extremities, focal weakness, change in bowel or bladder control, seizure. MUSCULOSKELETAL: + muscle, back pain, joint pain or stiffness. HEMATOLOGIC: No anemia, bleeding or bruising. LYMPHATICS: No enlarged nodes. No history of splenectomy. PSYCHIATRIC: No history of depression or anxiety. ENDOCRINOLOGIC: No reports of sweating, cold or heat intolerance. No polyuria or polydipsia. ALLERGIES: + History of anaphylaxis. Vital Signs Vital Signs Vital Signs: 03/19/24 20:49 03/19/24 22:49 03/20/24 00:00 Temperature 97.2 F L Temperature Source Temporal Pulse Rate 117 H 98 90 Respiratory Rate 16 16 18 Blood Pressure 165/97 H 151/89 H 168/77 H Blood Pressure Mean 119 109 107 Pulse Ox 95 92 96 Oxygen Delivery Method Room Air Room Air Room Air Weight Weight: 184 lb Body Mass Index (BMI) 35.9 Physical Exam Narrative Physical Examination: General: Awake, alert, oriented x 3 and cooperative, laying in the ED bed, fatigued, notes pain currently resolved. Skin: Normal color, normal turgor, no icterus, no cyanosis. HEENT: AT/NC, EOMI, PERRLA, mildly dry MM, no carotid bruits or JVD noted. Lungs: Mildly diminished, greater bases, appropriate effort, no rales, ronchi or wheezing. Heart: Regular rate and rhythm; no gallop, rub audible. Abdomen: Soft, discomfort specifically at the superior portion midline within the old abdominal scar from previous abdominal surgery, absent bowel sounds, no obvious distention, no HSM. Extremities: No cyanosis, clubbing, or edema. Neurological: Patient awake, alert, oriented as noted, cognitive function intact; pupils equally reactive to light and accommodation, cranial nerves gross normal, moving all 4 extremities, no focal deficits, strength moderately globally decreased Psychiatric: Affect appears fatigued otherwise normal, no acute evidence of depressive or anxiety feelings. Results Lab / Micro Data 03/19/24 23:05 03/19/24 23:05 Labs: Laboratory Results - last 24 hr 03/19/24 23:05: WBC 19.0 H, RBC 5.27, Hgb 14.9, Hct 43.9, MCV 83.3, MCH 28.3, MCHC 33.9, RDW Std Deviation 37.2, RDW Coeff of Prema 12.3, Plt Count 376, MPV 10.7, Immature Gran % (Auto) 0.900, Neut % (Auto) 84.6 H, Lymph % (Auto) 9.5 L, Coos % (Auto) 4.7, Eos % (Auto) 0.0, Baso % (Auto) 0.3, Absolute Neuts (auto) 16.1 H, Absolute Lymphs (auto) 1.80, Nucleated RBC % 0, Sodium 136, Potassium 4.1, Chloride 99, Carbon Dioxide 28.0, Anion Gap 9, BUN 16, Creatinine 0.94, Estim Creat Clear Calc 64.02, Est GFR (MDRD) Af Amer 79, Est GFR (MDRD) Non-Af 66, BUN/Creatinine Ratio 17.1, Glucose 276 H, Calcium 10.0, Total Bilirubin 0.80, AST 17, ALT 28, Alkaline Phosphatase 85, Total Protein 7.7, Albumin 3.9, Globulin 3.8, Albumin/Globulin Ratio 1.0, Lipase 30 03/20/24 00:10: Urine Color Yellow, Urine Clarity Clear, Urine pH 6.5, Ur Specific [place] 1.010, Urine Protein 15 H, Urine Glucose (UA) Normal, Urine Ketones Negative, Urine Occult Blood Negative, Urine Nitrite Negative, Urine Bilirubin Negative, Urine Urobilinogen Normal, Ur Leukocyte Esterase 100 H, Urine RBC 0 SEEN, Urine WBC 0-5 SEEN, Ur Squamous Epith Cells 0 SEEN, Urine Bacteria 0 SEEN, Urine Mucus 0 SEEN Imaging Radiology Impression Abdomen/Pelvis CT 03/19/24 22:22 IMPRESSION: Findings are consistent with a proximal small bowel obstruction located primarily within the left side of the abdomen suggesting closed-loop obstruction secondary either to adhesions or internal hernia. Electronically Signed: Grace Mitchell MD at 0:40 EDT Reading Location ID and State: [address] [place] [address] , Service support , Assessment & Plan Assessment/Plan (1) Complete small bowel obstruction: PLAN: Plan The patient is a 54 y/o F w/ PMHx: Obesity, HTN, HLD, Diabetes mellitus type II, Hx Colon CA s/p partial colectomy who presents to the [facility] ED on 03/20/2024 with history of abdominal pain as well as nausea and emesis with symptoms initially starting 2 days prior to ED presentation initially with upper supraumbilical abdominal discomfort eventually moving to the periumbilical area where it has remained with ongoing nausea and emesis with bilious at times occasionally green-black but no blood or coffee-ground emesis with last bowel movement noted to be very small and minimal on morning of day prior to presentation with no recent diarrhea with subjective fevers and chills earlier although she did not check her temperature with no recent ill contacts however she does report previous history of bowel obstruction and notes this is very similar with history of colorectal cancer approximately 16 years prior with resection and anastomosis at that time with no other intra-abdominal surgeries reported. #1. Abdominal pain, nausea, emesis w/ SBO possibly secondary to adhesions versus potential internal hernia with concurrent leukocytosis of uncertain etiology, potentially related with dehydration given her nausea and emesis bouts but cannot rule out intra-abdominal infection concurrently associated with this obstruction given there is some concern of intra closed-loop obstruction: Will admit to [facility], maintain on IVFs, NGT will be deferred per Surgery request, strict I&Os, IV pain/anti-emetics PRN, serial KUB as needed to monitor bowel function, PPI IV, will hold on NGT per surgery request specifically, given CT findings certainly some concern for possible intra-abdominal etiology for her leukocytosis thus will place on IV Zosyn however if there is any more stool we will obtain C. difficile and enteric to be cautious and will obtain procalcitonin. General surgery consulted and following although given findings would expect patient to require operative intervention. #2. Hypertension: Will hold oral hypertensive medication given presentation and as noted #1, will have as needed IV hydralazine in the interim. #3. Hyperlipidemia: We will hold patient home statin therapy given #1. #4. Diabetes mellitus type II: Holding patient Ozempic, will obtain hemoglobin A1c, will maintain n.p.o. status given #1, maintain on accu checks w/ ISS. #5. History of colon cancer: Status post partial colectomy, noted to have occurred approximately 16 years prior with immediately following resection anastomosis, potentially part of the etiology for #1, as of this point had been considered in remission. #6. Obesity: Weight loss and lifestyle changes encouraged. #7. DVT prophylaxis: Lovenox. #8. CODE status: Patient does not have healthcare power of title attorney or living will in place but notes her and her daughter would be her medical decision makers if necessary. Discussed CODE status at length including difference between FULL code, DNR-CCA and DNR-CC status. Following discussions about the differences in these status, requested Full Code status. Charges/Coding Visit Charges Inpatient E&M: 92238 Init Hosp L3
[2024-03-20] MEDS: Morphine 4 MG/ML Syringe IV (01:29)
[2024-03-20] MEDS: Ondansetron 4 MG/2 ML Vial IV ×3 (01:29→20:29)
--- OUTSIDE RECORDS SUMMARY | 2024-03-20 01:45 | XMS RPT_ITS | CCD ---
Author Organization [facility] Care Team Providers Care Patient Access Director Name Role Phone Luis Staley MD Primary Care Provider LUIS STALEY Primary Care Unavailable CLAIRE, RACHEL [...] Unavailable BULOW, RACHEL Referring Unavailable REBEKA, LUIS aMya Primary Care Unavailable LUIS STALEY Attending Unavailable [...] Unavailable Rebeka Luis CHANDLER Primary Care Provider Allergies Allergy Classification Reported Allergen(s) Allergy Type Date of Onset Reaction(s) Facility oxaliplatin (2 sources) oxaliplatin Drug Allergy 02-22-[address] [facility] (20 sources) oxaliplatin; Translations: [OXALIPLATIN] Drug Allergy 02-22-[address] [facility] Medications Current Medications Medication Drug Class(es) Dates [...] Start: 11-13-2023 End: 11-13-2023 benzocaine 20% 1 [place] (TOPEX) calcium chloride 0.0014 meq/ml / potassium [...] Results Test Name Value Interpretation Reference Range [facility] 01-09-2024 CNCO Letter Text Normal [facility] 01-02-2024 CNCO Letter Text Normal [facility] CNOVon 12-08-2023 CNOV Office Visit (NESLBO ) ANGELIQUE WYNNE ([id number]) 1970 F Date Time Provider Department 12/08/23 10:00 AM JESUS ORTIZ During your visit today, we recorded the following information about you: Pulse Blood pressure Weight Height 79/minute 123/79 81.6 kg 1.499 m Jesus Ortiz, MD 12/08/2023 10:05 AM Signed [facility] New Patient Evaluation PATIENT NAME: Angelique Wynne DATE OF SERVICE: December 08, 2023 CONSULTING PROVIDER: Rachel Mcmillan [address] [facility] [id number] REASON FOR CONSULT: Rachel Mcmillan sends the [...] difference.) Physical T-Score 50.8 Mental T-Score 53.3 [place] Sleepiness Scale Sitting and Reading? no chance [...] HISTORY OF (more content not included)... Normal [facility] ALKALINE PHOSPHATASE ISOENZY MES (P)on 12-05-2023 ALK PHOS BONE % 45.3 % Normal 10.7-68.3 [facility] Comment on above: Order Comment: Speci men Type: BLOOD SPECIMENOrdering Facility: [facility] Address: [address] [place] [address] Performed By: #### A LKISOP ####[facility] LABIA [id number] [place] [address] [place] ALK PHOS LIVER % 54.7 % Normal 26.0-86.2 [facility] Comment on above: Order Comment: Speci men Type: BLOOD SPECIMENOrdering Facility: [facility] Address: [address] [place] [address] Performed By: #### A LKISOP ####[facility] LABCLIA [id number] [place] [address] [place] BONE FRACTION 39.4 U/L Normal 12.9-52.6 [facility] Comment on above: Order Comment: Speci men Type: BLOOD SPECIMENOrdering Facility: [facility] Address: [address] [place] [address] Performed By: #### A LKISOP ####[facility] LABCLIA [id number] [place] [address] [place] INTESTINE FRACTION 0.0 U/L Normal 0.0-16.3 [facility] Comment on above: Order Comment: Speci men Type: BLOOD SPECIMENOrdering Facility: [facility] Address: [address] [place] [address] Performed By: #### A LKISOP ####[facility] LABCLIA [id number] [place] [address] [place] LIVER FRACTION 47.6 U/L Normal 16.0-69.3 [facility] Comment on above: Order Comment: Speci dar Type: BLOOD SPECIMENOrdering Facility: [facility] Address: [address] [place] [address] Performed By: #### A LKISOP ####[facility] LABIA [id number] [place] [address] [place] Neutrophils/100 WBC (Bld) 0.0 % Normal 0.0-24.2 [facility] Comment on above: Order Comment: Speci men Type: BLOOD SPECIMENOrdering Facility: [facility] Address: [address] [place] [address] Performed By: #### A LKISOP ####[facility] LABCLIA [id number] [place] [address] [place] ALP SerPl-cCncon 12-05-2023 ALP [Catalytic activity/Vol] 87 U/L Normal 34-123 [facility] Comment on above: Order Comment: Speci men Type: BLOOD SPECIMENOrdering Facility: [facility] Address: [address] [place] [address] Performed By: #### 6 768-6 ####[facility] [id number] [place] [address] [place] CNOVon 12-05-2023 [facility] ANGELIQUE WYNNE ([id number]) 1970 F Date Time Provider Department 12/05/23 10:00 AM LUIS STALEY [facility] During your visit today, we recorded the [...] Abs Lymph 1.00 - 4.00 k/uL 2.51 Webb% % 5.2 Abs Webb <0.87 k/uL 0.45 Eosin% % 2.9 Abs [...] ALLERGIES Allergen Reactions Oxaliplatin Anaphylaxis Went to [facility] ER 02/08/08 PAST MEDICAL HISTORY Diagnosis Date [...] Daughter Soci (more content not included)... [facility] ANGELIQUE WYNNE ([id number]) 1970 F Date Time Provider Department 12/02/23 LUIS STALEY [facility] During your visit today, we [...] 02/22/2008 10 - Anaphylaxis Comments: Went to [facility] ER 02/08/08 Date Reviewed: 11/28/2023 Reviewed by: Rolf Patino RD - Fully Assessed Reason for Visit: Results [95] Primary Visit Diagnosis:Elevated alkaline phosphatase level [R74.8] Order(s):ALK PHOS ISOENZYM BL [SQALKISO] Order #: [id number] FUTURE Prescriptions as of 12/02/2023 - lisinopril [...] by LUZ MARINA LEUNG on 12/02/23 Normal [facility] ALBUMIN/CREATININE RATIO, UR INEon 12-01-2023 Albumin DL <= 20 mg/L (U) [Mass/Vol] mg/dL Normal [facility] Comment on above: Order Comment: Speci men Type: URINE SPECIMENOrdering Facility: [facility] Address: [address] [place] [address] Performed By: #### U ACR ####[facility] LABCLIA [id number] [place] [address] [place] Albumin/Creatinine (U) [Mass ratio] <10 Normal <30 [facility] Comment on above: Order Comment: Speci men Type: URINE SPECIMENOrdering Facility: [facility] Address: [address] [place] [address] Result Comment: Adul t Male and Female Nephrotic Criteria: <30 mg/g is considered normal to mildly increased 30-300 mg/g is considered moderately increased >300 mg/g is considered severely increased KDIGO. (2013). KDIGO 2012 Clinical Practice Guideline for the Evaluation and Management of Chronic Kidney Disease. Official Journal of the International Society of Nephrology, 3(1), 1-150. Performed By: #### U ACR ####[facility] LABCLIA [id number] [place] [address] [place] Creatinine (U) [Mass/Vol] 121.4 mg/dL Normal 20.0-300.0 [facility] Comment on above: Order Comment: Speci men Type: URINE SPECIMENOrdering Facility: [facility] Address: [address] [place] [address] Performed By: #### U ACR ####[facility] LABIA [id number] [place] [address] [place] CBC W Auto Differential pane l (Bld)on 12-01-2023 Basophils (Bld) [#/Vol] 0.06 10*3/uL Normal <0.11 [facility] Comment on above: Order Comment: Speci men Type: BLOOD SPECIMENOrdering Facility: [facility] Address: [address] [place] [address] Performed By: #### 5 7021-8 ####[facility] LABIA [id number] [place] [address] [place] Basophils/100 WBC (Bld) 0.7 % Normal [facility] Comment on above: Order Comment: Speci men Type: BLOOD SPECIMENOrdering Facility: [facility] Address: [address] [place] [address] Performed By: #### 5 7021-8 ####[facility] LABIA [id number] [place] [address] [place] Differential cell count method Nom (Bld) Auto Normal [facility] Comment on above: Order Comment: Speci men Type: BLOOD SPECIMENOrdering Facility: [facility] Address: [address] [place] [address] Performed By: #### 5 7021-8 ####[facility] LABCLIA [id number] [place] [address] [place] Eosinophils (Bld) [#/Vol] 0.25 10*3/uL Normal <0.46 [facility] Comment on above: Order Comment: Speci men Type: BLOOD SPECIMENOrdering Facility: [facility] Address: [address] [place] [address] Performed By: #### 5 7021-8 ####[facility] LABIA [id number] [place] [address] [place] Eosinophils/100 WBC (Bld) 2.9 % Normal [facility] Comment on above: Order Comment: Speci men Type: BLOOD SPECIMENOrdering Facility: [facility] Address: [address] [place] [address] Performed By: #### 5 7021-8 ####[facility] LABIA [id number] [place] [address] [place] Erythrocyte distribution width (RBC) [Ratio] 12.4 % Normal 11.5-15.0 [facility] Comment on above: Order Comment: Speci men Type: BLOOD SPECIMENOrdering Facility: [facility] Address: [address] [place] [address] Performed By: #### 5 7021-8 ####[facility] LABIA [id number] [place] [address] [place] Hematocrit (Bld) [Volume fraction] 42.1 % Normal 36.0-46.0 [facility] Comment on above: Order Comment: Speci men Type: BLOOD SPECIMENOrdering Facility: [facility] Address: [address] [place] [address] Performed By: #### 5 7021-8 ####[facility] LABIA [id number] [place] [address] [place] Hemoglobin (Bld) [Mass/Vol] 13.6 g/dL Normal 11.5-15.5 [facility] Comment on above: Order Comment: Speci men Type: BLOOD SPECIMENOrdering Facility: [facility] Address: [address] [place] [address] Performed By: #### 5 7021-8 ####[facility] LABCLIA [id number] [place] [address] [place] Immature granulocytes (Bld) [#/Vol] 0.03 10*3/uL Normal <0.10 [facility] Comment on above: Order Comment: Speci men Type: BLOOD SPECIMENOrdering Facility: [facility] Address: [address] [place] [address] Performed By: #### 5 7021-8 ####[facility] LABCLIA [id number] [place] [address] [place] Immature granulocytes/100 WBC (Bld) 0.3 % Normal [facility] Comment on above: Order Comment: Speci men Type: BLOOD SPECIMENOrdering Facility: [facility] Address: [address] [place] [address] Performed By: #### 5 7021-8 ####[facility] LABCLIA [id number] [place] [address] [place] Lymphocytes (Bld) [#/Vol] 2.51 10*3/uL Normal 1.00-4.00 [facility] Comment on above: Order Comment: Speci men Type: BLOOD SPECIMENOrdering Facility: [facility] Address: [address] [place] [address] Performed By: #### 5 7021-8 ####[facility] LABCLIA [id number] [place] [address] [place] Lymphocytes/100 WBC (Bld) 29.1 % Normal [facility] Comment on above: Order Comment: Speci men Type: BLOOD SPECIMENOrdering Facility: [facility] Address: [address] [place] [address] Performed By: #### 5 7021-8 ####[facility] LABCLIA [id number] [place] [address] [place] MCH (RBC) [Entitic mass] 28.0 pg Normal 26.0-34.0 [facility] Comment on above: Order Comment: Speci men Type: BLOOD SPECIMENOrdering Facility: [facility] Address: [address] [place] [address] Performed By: #### 5 7021-8 ####[facility] LABCLIA [id number] [place] [address] [place] MCHC (RBC) [Mass/Vol] 32.3 g/dL Normal 30.5-36.0 [facility] Comment on above: Order Comment: Speci men Type: BLOOD SPECIMENOrdering Facility: [facility] Address: [address] [place] [address] Performed By: #### 5 7021-8 ####[facility] LABIA [id number] [place] [address] [place] MCV (RBC) [Entitic vol] 86.6 fL Normal 80.0-100.0 [facility] Comment on above: Order Comment: Speci men Type: BLOOD SPECIMENOrdering Facility: [facility] Address: [address] [place] [address] Performed By: #### 5 7021-8 ####[facility] LABIA [id number] [place] [address] [place] Monocytes (Bld) [#/Vol] 0.45 10*3/uL Normal <0.87 [facility] Comment on above: Order Comment: Speci men Type: BLOOD SPECIMENOrdering Facility: [facility] Address: [address] [place] [address] Performed By: #### 5 7021-8 ####[facility] LABIA [id number] [place] [address] [place] Monocytes/100 WBC (Bld) 5.2 % Normal [facility] Comment on above: Order Comment: Speci men Type: BLOOD SPECIMENOrdering Facility: [facility] Address: [address] [place] [address] Performed By: #### 5 7021-8 ####[facility] LABCLIA [id number] [place] [address] [place] Neutrophils (Bld) [#/Vol] 5.33 10*3/uL Normal 1.45-7.50 [facility] Comment on above: Order Comment: Speci men Type: BLOOD SPECIMENOrdering Facility: [facility] Address: [address] [place] [address] Performed By: #### 5 7021-8 ####[facility] LABCLIA [id number] [place] [address] [place] Neutrophils/100 WBC (Bld) 61.8 % Normal [facility] Comment on above: Order Comment: Speci men Type: BLOOD SPECIMENOrdering Facility: [facility] Address: [address] [place] [address] Performed By: #### 5 7021-8 ####[facility] LABCLIA [id number] [place] [address] [place] Nucleated RBC (Bld) [#/Vol] 10*3/uL Normal <0.01 [facility] Comment on above: Order Comment: Speci men Type: BLOOD SPECIMENOrdering Facility: [facility] Address: [address] [place] [address] Performed By: #### 5 7021-8 ####[facility] LABCLIA [id number] [place] [address] [place] Nucleated RBC/100 WBC (Bld) [Ratio] 0.0 /100 WBC Normal [facility] Comment on above: Order Comment: Speci men Type: BLOOD SPECIMENOrdering Facility: [facility] Address: [address] [place] [address] Performed By: #### 5 7021-8 ####[facility] LABCLIA [id number] [place] [address] [place] Platelet mean volume (Bld) [Entitic vol] 11.6 fL Normal 9.0-12.7 [facility] Comment on above: Order Comment: Speci men Type: BLOOD SPECIMENOrdering Facility: [facility] Address: [address] [place] [address] Performed By: #### 5 7021-8 ####[facility] LABCLIA [id number] [place] [address] [place] Platelets (Bld) [#/Vol] 273 10*3/uL Normal 150-400 [facility] Comment on above: Order Comment: Speci men Type: BLOOD SPECIMENOrdering Facility: [facility] Address: [address] [place] [address] Performed By: #### 5 7021-8 ####[facility] LABCLIA [id number] [place] [address] [place] RBC (Bld) [#/Vol] 4.86 10*6/uL Normal 3.90-5.20 [facility] Comment on above: Order Comment: Speci men Type: BLOOD SPECIMENOrdering Facility: [facility] Address: [address] [place] [address] Performed By: #### 5 7021-8 ####[facility] LABCLIA [id number] [place] [address] [place] WBC (Bld) [#/Vol] 8.63 10*3/uL Normal 3.70-11.00 [facility] Comment on above: Order Comment: Speci men Type: BLOOD SPECIMENOrdering Facility: [facility] Address: [address] [place] [address] Performed By: #### 5 7021-8 ####[facility] LABCLIA [id number] [place] [id number] [place] CEA SerPl-mCncon 12-01-2023 Carcinoembryonic Ag [Mass/Vol] 0.6 ng/mL Normal <=2.9 [facility] Comment on above: Order Comment: Speci men Type: BLOOD SPECIMENOrdering Facility: [facility] Address: [address] [place] [address] Result Comment: Carc inoembryonic antigen test is used as an aid in monitoring response to treatment or recurrence in patients with established colorectal, breast, lung, prostatic, pancreatic, and ovarian carcinomas. Clinical correlation is required. The Carcinoembryonic antigen test was performed using the [employer] DXI paramagnetic particle chemiluminescent immunoassay method. Results obtained with different assay methods or kits cannot be used interchangeably. Performed By: #### 2 039-6 ####[facility] LABCLIA [id number] [place] [address] [place] Comprehensive metabolic 2000 panelon 12-01-2023 Albumin [Mass/Vol] 4.3 g/dL Normal 3.9-4.9 [facility] Comment on above: Order Comment: Speci men Type: BLOOD SPECIMENOrdering Facility: [facility] Address: [address] [place] [address] Performed By: #### 2 4323-8, 43294-0 ####[facility] LABCLIA [id number] [place] [address] [place] ALP [Catalytic activity/Vol] 146 U/L High 34-123 [facility] Comment on above: Order Comment: Speci men Type: BLOOD SPECIMENOrdering Facility: [facility] Address: [address] [place] [address] Performed By: #### 2 4323-8, 75339-1 ####[facility] LABCLIA [id number] [place] [id number] [place] ALT [Catalytic activity/Vol] 25 U/L Normal 7-38 [facility] Comment on above: Order Comment: Speci men Type: BLOOD SPECIMENOrdering Facility: [facility] Address: [address] [place] [address] Performed By: #### 2 4323-8, 62640-5 ####[facility] LABCLIA [id number] [place] [address] [place] Anion gap [Moles/Vol] 13 mmol/L Normal 8-15 [facility] Comment on above: Order Comment: Speci men Type: BLOOD SPECIMENOrdering Facility: [facility] Address: [address] [place] [address] Performed By: #### 2 4323-8, 28288-0 ####[facility] LABCLIA [id number] [place] [address] [place] AST [Catalytic activity/Vol] 25 U/L Normal 13-35 [facility] Comment on above: Order Comment: Speci men Type: BLOOD SPECIMENOrdering Facility: [facility] Address: [address] [place] [address] Performed By: #### 2 4323-8, 29578-8 ####[facility] LABCLIA [id number] [place] [address] [place] Bilirubin [Mass/Vol] 0.3 mg/dL Normal 0.2-1.3 [facility] Comment on above: Order Comment: Speci men Type: BLOOD SPECIMENOrdering Facility: [facility] Address: [address] [place] [address] Performed By: #### 2 4323-8, 11920-1 ####[facility] LABCLIA [id number] [place] [address] [place] Calcium [Mass/Vol] 10.2 mg/dL Normal 8.5-10.2 [facility] Comment on above: Order Comment: Speci men Type: BLOOD SPECIMENOrdering Facility: [facility] Address: [address] [place] [address] Performed By: #### 2 4323-8, 19025-0 ####[facility] LABCLIA [id number] [place] [address] [place] Chloride [Moles/Vol] 106 mmol/L Normal 98-107 [facility] Comment on above: Order Comment: Speci men Type: BLOOD SPECIMENOrdering Facility: [facility] Address: [address] [place] [address] Performed By: #### 2 4323-8, 88764-5 ####[facility] LABCLIA [id number] [place] [address] [place] CO2 [Moles/Vol] 22 mmol/L Normal 22-30 [facility] Comment on above: Order Comment: Speci men Type: BLOOD SPECIMENOrdering Facility: [facility] Address: [address] [place] [address] Performed By: #### 2 4323-8, 02599-2 ####[facility] LABIA [id number] [place] [address] [place] Creatinine [Mass/Vol] 0.73 mg/dL Normal 0.58-0.96 [facility] Comment on above: Order Comment: Speci men Type: BLOOD SPECIMENOrdering Facility: [facility] Address: [address] [place] [address] Performed By: #### 2 4323-8, 90295-9 ####[facility] LABIA [id number] [address] [place] Creatinine and Glomerular filtration rate.predicted panel (S/P/Bld) 97 mL/min/1.73m??? Normal >=60 [facility] Comment on above: Order Comment: Speci men Type: BLOOD SPECIMENOrdering Facility: [facility] Address: [address] [place] [address] Result Comment: Patricia mated Glomerular Filtration Rate [...] actual GFR. Performed By: #### 2 4323-8, 01559-5 ####[facility] LABCLIA [id number] [place] [address] [place] Glucose [Mass/Vol] 91 mg/dL Normal 74-99 [facility] Comment on above: Order Comment: Speci men Type: BLOOD SPECIMENOrdering Facility: [facility] Address: [address] [place] [address] Result Comment: The [place] Diabetes Association (ADA) provides guidance for cutoff [...] Standards of Medical Care in Diabetes 2016, [place] Diabetes Association. Diabetes Care. 2016.39(Suppl 1). Performed By: #### 2 4323-8, 24041-2 ####[facility] [id number] [place] [address] [place] Potassium [Moles/Vol] 4.2 mmol/L Normal 3.7-5.1 [facility] Comment on above: Order Comment: Speci men Type: BLOOD SPECIMENOrdering Facility: [facility] Address: [address] [place] [address] Performed By: #### 2 4323-8, 43820-2 ####[facility] [id number] [place] [address] [place] Protein [Mass/Vol] 6.8 g/dL Normal 6.3-8.0 [facility] Comment on above: Order Comment: Speci men Type: BLOOD SPECIMENOrdering Facility: [facility] Address: [address] [place] [address] Performed By: #### 2 4323-8, 61068-5 ####[facility] LABCLIA [id number] [address] [address] [place] Sodium [Moles/Vol] 141 mmol/L Normal 136-144 [facility] Comment on above: Order Comment: Speci men Type: BLOOD SPECIMENOrdering Facility: [facility] Address: [address] [place] [address] Performed By: #### 2 4323-8, 10544-1 ####[facility] [id number] [place] [address] [place] Urea nitrogen [Mass/Vol] 14 mg/dL Normal 7-21 [facility] Comment on above: Order Comment: Speci men Type: BLOOD SPECIMENOrdering Facility: [facility] Address: [address] [place] [address] Performed By: #### 2 4323-8, 49241-6 ####[facility] LABIA [id number] [place] [address] [place] HbA1c (Bld)on 12-01-2023 Average glucose Estimated from glycated hemoglobin (Bld) [Mass/Vol] 123 mg/dL Normal [facility] Comment on above: Order Comment: Speci men Type: BLOOD SPECIMENOrdering Facility: [facility] Address: [address] [place] [address] Result Comment: eAG: (Estimated average glucose) is a calculated value from HgbA1c and is termite control service representative of the average blood glucose level in the last 2-3 month period. Performed By: #### 5 5454-3 ####[facility] [id number] [place] [address] [place] HbA1c (Bld) [Mass fraction] 5.9 % High 4.3-5.6 [facility] Comment on above: Order Comment: Speci men Type: BLOOD SPECIMENOrdering Facility: [facility] Address: [address] [place] [address] Result Comment: Amer ican Diabetes Association guidelines indicate that patients with HgbA1c in the range 5.7-6.4% are at increased risk for development of diabetes, and intervention by lifestyle modification may be beneficial. HgbA1c greater or equal to 6.5% is considered diagnostic of diabetes. Performed By: #### 5 5454-3 ####[facility] LABCLIA [id number] [place] [address] [place] Lipid 1996 panelon 4 Cholesterol [Mass/Vol] 111 mg/dL Normal <200 [facility] Comment on above: Order Comment: Hectori men Type: BLOOD SPECIMENOrdering Facility: [facility] Address: [address] [place] [address] Result Comment: <200 mg/dL, Desirable 200-239 mg/dL, Borderline high >239 mg/dL, High Performed By: #### 2 4323-8, 26455-5 ####[facility] LABCLIA [id number] [address] [place] Cholesterol in HDL [Mass/Vol] 55 mg/dL Normal >39 [facility] Comment on above: Order Comment: Yolande dodge Type: BLOOD SPECIMENOrdering Facility: [facility] Address: [address] [place] [address] Result Comment: 40-5 9 mg/dL, Acceptable >59 mg/dL, High: Negative risk factor for coronary heart disease <40 mg/dL, Low: Positive risk factor for coronary heart disease Performed By: #### 2 4323-8, 17545-5 ####[facility] LABCLIA [id number] [address] [place] Cholesterol in LDL [Mass/Vol] 27 mg/dL Normal <100 [facility] Comment on above: Order Comment: Yolande dodge Type: BLOOD SPECIMENOrdering Facility: [facility] Address: [address] [place] [address] Result Comment: <100 mg/dL, Optimal 100-129 mg/dL, Near optimal/above optimal 130-159 mg/dL, Borderline high 160-189 mg/dL, High >189 mg/dL, Very high Secondary prevention optimal LDL Cholesterol levels are recommended to be < 70 mg/dL Performed By: #### 2 4323-8, 75463-8 ####[facility] LABCLIA [id number] [place] [address] [place] Cholesterol in LDL/Cholesterol in HDL [Mass ratio] 0.49 {ratio} Normal <2.54 [facility] Comment on above: Order Comment: Speci men Type: BLOOD SPECIMENOrdering Facility: [facility] Address: [address] [place] [address] Result Comment: Refe rence: 1. National Cholesterol Education Program ATP III Guideline At-A-Glance Quick Desk Reference: National Heart, Lung, and Blood [place]. National Institutes of Health. 2001: NIH Publication No. 01-3305. 2. An International Atherosclerosis Society position paper: global recommendations for the management of dyslipidemia: executive summary, Atherosclerosis. 2014: 232(2):410-413. Performed By: #### 2 4323-8, 47714-7 ####[facility]IA [id number] [place] [address] [place] Cholesterol in VLDL [Mass/Vol] 29 mg/dL Normal <30 [facility] Comment on above: Order Comment: Yolande dodge Type: BLOOD SPECIMENOrdering Facility: [facility] Address: [address] [place] [address] Performed By: #### 2 4323-8, 99302-0 ####[facility]IA [id number] [place] [address] [place] Cholesterol non HDL [Mass/Vol] 56 mg/dL Normal <130 [facility] Comment on above: Order Comment: Yolande men Type: BLOOD SPECIMENOrdering Facility: [facility] Address: [address] [place] [address] Result Comment: <130 mg/dL, Optimal 130-159 mg/dL, Near optimal/above optimal 160-189 mg/dL, Borderline high 190-219 mg/dL, High >219 mg/dL, Very high Secondary prevention optimal non HDL Cholesterol levels are recommended to be <100 mg/dL Performed By: #### 2 4323-8, 40289-4 ####[facility] LABCLIA [id number] [place] [address] [place] Cholesterol.total/Cho lesterol in HDL [Mass ratio] 2.02 {ratio} Normal <5.10 [facility] Comment on above: Order Comment: Speci men Type: BLOOD SPECIMENOrdering Facility: [facility] Address: [address] [place] [address] Performed By: #### 2 4323-8, 33553-0 ####[facility] LABCLIA [id number] [address] OF [facility] FASTING TIME 12 hrs Normal [facility] Comment on above: Order Comment: Speci men Type: BLOOD SPECIMENOrdering Facility: [facility] Address: [address] [place] [address] Performed By: #### 2 4323-8, 47276-3 ####[facility] LABCLIA [id number] [place] [address] [place] Triglyceride [Mass/Vol] 145 mg/dL Normal <150 [facility] Comment on above: Order Comment: Speci men Type: BLOOD SPECIMENOrdering Facility: [facility] Address: [address] [place] [address] Result Comment: <150 mg/dL, Normal 150-199 mg/dL, Borderline high 200-499 mg/dL, High >499 mg/dL, Very high Performed By: #### 2 4323-8, 60641-6 ####[facility] LABCLIA [id number] [place] [address] [place] 1884777pv 11-13-2023 [id number] HNO ID: [id number] Author: NAILA NAVARRO RN Service: ? Author Type: Registered Nurse Type: [id number] Filed: 11/13/2023 09:41 Note Text: The patient received a copy of EGD discharge instructions that contain information for how to contact the physician who performed the procedure and when to seek medical care. Normal [facility] EGD Study observation Ailin beard 11-13-2023 Jelani [facility] Gastrointestinal Endoscopy Patient Name: Angelique Wynne Procedure [...] be scheduled. Procedure Code(s): --- Professional --- 73667, Esophagogastroduodenos copy, flexible, transoral; with biopsy, single or multiple Diagnosis Code(s): --- Professional --- Z01.818, Encounter for other preprocedural examination E66.01, Morbid (severe) obesity due to excess calories CPT copyright 2020 [employer]. All rights reserved. The codes documented in this report are preliminary and upon curatorial assistant review may be revised to meet current compliance requirements. Attending Participation: I personally performed the entire procedure. Scope In: 9:24:15 AM Scope Out: 9:28:13 AM MD Higinio Bailey MD 11/13/2023 9:34:13 AM This report has been signed electronically by Iván (more content not included)... PROVATION [facility] Radiology Study observation (narrative) [facility] HISTORY PHYSICALon HISTORY PHYSICAL HNO ID: [id number] Author: HIGINIO CAMPUZANO MD Service: General Surgery [...] her job soon. She has [facility] for few years and [...] ALLERGIES Allergen Reactions Oxaliplatin Anaphylaxis Went to [facility] ER 02/08/08 FAMILY HISTORY: FAMILY HISTORY FAMILY [...] lesions He (more content not included)... Normal [facility] NURSING PROGon 11-13-2023 NURSING PROG HNO ID: [id number] Author: NAILA NAVARRO, RN Service: ? Author Type: Registered Nurse Type: Nursing Progress Note Filed: 11/13/2023 09:44 Note Text: Pt. arrived to phase 2 resting on left side. SR up x 2, call light in reach. Naila Navarro RN Normal [facility] SURGICAL PATHOLOGYon 024 CASE REPORT Normal [facility] Comment on above: Order Comment: Speci men Type: TISSUE SPECIMEN Ordering Facility: [facility] Address: [address] [place] [address] Result Comment: Surg ical Pathology Report Case: [id number] Authorizing Provider: Higinio Campuzano MD Collected: 11/13/2023 09:24 AM Ordering Location: Ambulatory Surgery Received: 11/13/2023 03:33 PM Pathologist: Jose Alberto Martinez MD Specimens: A) - Small Bowel, Duodenum, Biopsy B) - Stomach, Antrum, Biopsy, Antral bx for H/H C) - Esophagus, Distal, Biopsy D) - Esophagus, Mid, Biopsy Performed By: #### S #### [facility] CLIA [id number] [address] [place] [address] [place] CLINICAL HISTORY Normal [facility] Comment on above: Order Comment: Speci men Type: TISSUE SPECIMEN Ordering Facility: [facility] Address: [address] [place] [address] Performed By: #### S #### [facility] CLIA [id number] [address] [place] [address] OF [facility] FINAL DIAGNOSIS Normal [facility] Comment on above: Order Comment: Speci men Type: TISSUE SPECIMEN Ordering Facility: [facility] Address: [address] [place] [address] Result Comment: A. S mall bowel, duodenum, [...] PB/dkm 11/17/2023 Performed By: #### S #### [facility] CLIA [id number] [address] [place] [address] [place] FINAL PERFORMING LAB [facility] Comment on above: Order Comment: Speci men Type: TISSUE SPECIMEN Ordering Facility: [facility] Address: [address] [place] [address] Result Comment: Diag nostic interpretation performed at [facility], [address] [place] [address] CLIA# [id number] Registered Nurse Obstetrics: Robbin Asher M.D. Performed By: #### S #### [facility] CLIA [id number] [address] [place] [address] [place] GROSS DESCRIPTION Normal [facility] Comment on above: Order Comment: Speci men Type: TISSUE SPECIMEN Ordering Facility: [facility] Address: [address] [place] [address] Result Comment: A. S mall Bowel, Duodenum, [...] in one cassette. Gross examination performed at [facility], [address] [place] [address] KK November 13, 2023 10:51 PM Performed By: #### S #### [facility] CLIA [id number] [address] [place] [address] [place] Upper GI endoscopyon 024 Upper GI endoscopy [facility] Gastrointestinal Endoscopy Patient Name: Angelique Taoist Procedure Date: 11/13/2023 9:13 AM Date of [...] be scheduled. Procedure Code(s): --- Professional --- 86078, Esophagogastroduodenos copy, flexible, transoral; with biopsy, single or multiple Diagnosis Code(s): --- Professional --- Z01.818, Encounter for other preprocedural examination E66.01, Morbid (severe) obesity due to excess calories CPT copyright 2020 [employer]. All rights reserved. The codes documented in this report are preliminary and upon curatorial assistant review may be revised to meet current [...] minimal. Estimated blood loss was minimal. Normal [facility] CNOVon 10-21-2023 CNOV Office Visit ([id number] ) ANGELIQUE WYNNE ([id number]) 1970 F Date Time Provider Department 10/21/23 8:30 AM BRODERICK ANSARI [id number] During your visit today, we recorded the following information about you: Temperature Pulse Blood pressure Weight 98 degrees 76/minute 149/74 81.6 kg Height 1.499 m Alanis Avitia RN 10/21/2023 9:[address] Ansari has requested a pre operative upper endoscopy (EGD) for your bariatric surgery. This procedure is to examine your stomach and small intestines. To schedule an Upper Endoscopy (EGD): Call [phone] -Select Option to schedule an appointment -Request to schedule an upper endoscopy -There are multiple [facility] locations to choose from and the rodding anode worker will assist with appointment for procedure. What [...] is especially important if you have had pfypd-lqctzwfjn-oltxa surgery in the past. How is an [...] be notified. (more content not included)... Normal [facility] 25(OH)D3 [facility] 2023 25-hydroxyvitamin D3 [Mass/Vol] 32.9 ng/mL Normal 31.0-80.0 [facility] Comment on above: Order Comment: Speci men Type: BLOOD SPECIMENOrdering Facility: [facility] Address: [address] [place] [address] Result Comment: Clas sification of 25 [place] Vitamin D status: Deficiency/Insufficiency: < or = 30 ng/ml. Sufficiency/Optimal Levels: 31-80 ng/mL Toxicity: > 100 ng/mL. Test performed by chemiluminescent immunoassay. Performed By: #### 1 989-3 ####[facility] LABCLIA [id number] [facility] [place] [address] [place] CBC W Auto Differential pane l (Bld)on 10-17-2023 Basophils (Bld) [#/Vol] 0.07 10*3/uL Normal <0.11 [facility] Comment on above: Order Comment: Speci men Type: BLOOD SPECIMENOrdering Facility: [facility] Address: [address] [place] [address] Performed By: #### 5 7021-8 ####[facility] [id number] [place] [address] [place] Basophils/100 WBC (Bld) 1.0 % Normal [facility] Comment on above: Order Comment: Speci men Type: BLOOD SPECIMENOrdering Facility: [facility] Address: [address] [place] [address] Performed By: #### 5 7021-8 ####[facility] [id number] [place] [address] [place] Differential cell count method Nom (Bld) Auto Normal [facility] Comment on above: Order Comment: Speci men Type: BLOOD SPECIMENOrdering Facility: [facility] Address: [address] [place] [address] Performed By: #### 5 7021-8 ####[facility] [id number] [place] [address] [place] Eosinophils (Bld) [#/Vol] 0.17 10*3/uL Normal <0.46 [facility] Comment on above: Order Comment: Speci men Type: BLOOD SPECIMENOrdering Facility: [facility] Address: [address] [place] [address] Performed By: #### 5 7021-8 ####[facility] [id number] [place] [address] [place] Eosinophils/100 WBC (Bld) 2.3 % Normal [facility] Comment on above: Order Comment: Speci men Type: BLOOD SPECIMENOrdering Facility: [facility] Address: [address] [place] [address] Performed By: #### 5 7021-8 ####[facility] [id number] [place] [address] [place] Erythrocyte distribution width (RBC) [Ratio] 12.4 % Normal 11.5-15.0 [facility] Comment on above: Order Comment: Speci men Type: BLOOD SPECIMENOrdering Facility: [facility] Address: [address] [place] [address] Performed By: #### 5 7021-8 ####[facility] [id number] [place] [address] [place] Hematocrit (Bld) [Volume fraction] 43.6 % Normal 36.0-46.0 [facility] Comment on above: Order Comment: Speci men Type: BLOOD SPECIMENOrdering Facility: [facility] Address: [address] [place] [address] Performed By: #### 5 7021-8 ####[facility] [id number] [place] [address] [place] Hemoglobin (Bld) [Mass/Vol] 14.5 g/dL Normal 11.5-15.5 [facility] Comment on above: Order Comment: Speci men Type: BLOOD SPECIMENOrdering Facility: [facility] Address: [address] [place] [address] Performed By: #### 5 7021-8 ####[facility] [id number] [place] [address] [place] Immature granulocytes (Bld) [#/Vol] 10*3/uL Normal <0.10 [facility] Comment on above: Order Comment: Speci men Type: BLOOD SPECIMENOrdering Facility: [facility] Address: [address] [place] [address] Performed By: #### 5 7021-8 ####[facility] JUANRAUL [id number] [place] [address] [place] Immature granulocytes/100 WBC (Bld) 0.3 % Normal [facility] Comment on above: Order Comment: Speci men Type: BLOOD SPECIMENOrdering Facility: [facility] Address: [address] [place] [address] Performed By: #### 5 7021-8 ####[facility] [id number] [place] [address] [place] Lymphocytes (Bld) [#/Vol] 2.19 10*3/uL Normal 1.00-4.00 [facility] Comment on above: Order Comment: Speci men Type: BLOOD SPECIMENOrdering Facility: [facility] Address: [address] [place] [address] Performed By: #### 5 7021-8 ####[facility] [id number] [place] [address] [place] Lymphocytes/100 WBC (Bld) 29.9 % Normal [facility] Comment on above: Order Comment: Speci men Type: BLOOD SPECIMENOrdering Facility: [facility] Address: [address] [place] [address] Performed By: #### 5 7021-8 ####[facility] [id number] [place] [address] [place] MCH (RBC) [Entitic mass] 28.2 pg Normal 26.0-34.0 [facility] Comment on above: Order Comment: Speci men Type: BLOOD SPECIMENOrdering Facility: [facility] Address: [address] [place] [address] Performed By: #### 5 7021-8 ####[facility] [id number] [place] [address] [place] MCHC (RBC) [Mass/Vol] 33.3 g/dL Normal 30.5-36.0 [facility] Comment on above: Order Comment: Speci men Type: BLOOD SPECIMENOrdering Facility: [facility] Address: [address] [place] [address] Performed By: #### 5 7021-8 ####[facility] [id number] [place] [address] [place] MCV (RBC) [Entitic vol] 84.7 fL Normal 80.0-100.0 [facility] Comment on above: Order Comment: Speci men Type: BLOOD SPECIMENOrdering Facility: [facility] Address: [address] [place] [address] Performed By: #### 5 7021-8 ####[facility] [id number] [place] [address] [place] Monocytes (Bld) [#/Vol] 0.38 10*3/uL Normal <0.87 [facility] Comment on above: Order Comment: Speci men Type: BLOOD SPECIMENOrdering Facility: [facility] Address: [address] [place] [address] Performed By: #### 5 7021-8 ####[facility] [id number] [place] [address] [place] Monocytes/100 WBC (Bld) 5.2 % Normal [facility] Comment on above: Order Comment: Speci men Type: BLOOD SPECIMENOrdering Facility: [facility] Address: [address] [place] [address] Performed By: #### 5 7021-8 ####[facility] [id number] [place] [address] [place] Neutrophils (Bld) [#/Vol] 4.50 10*3/uL Normal 1.45-7.50 [facility] Comment on above: Order Comment: Speci men Type: BLOOD SPECIMENOrdering Facility: [facility] Address: [address] [place] [address] Performed By: #### 5 7021-8 ####[facility] [id number] [place] [address] [place] Neutrophils/100 WBC (Bld) 61.3 % Normal [facility] Comment on above: Order Comment: Speci men Type: BLOOD SPECIMENOrdering Facility: [facility] Address: [address] [place] [address] Performed By: #### 5 7021-8 ####[facility] [id number] [place] [address] [place] Nucleated RBC (Bld) [#/Vol] 10*3/uL Normal <0.01 [facility] Comment on above: Order Comment: Speci men Type: BLOOD SPECIMENOrdering Facility: [facility] Address: [address] [place] [address] Performed By: #### 5 7021-8 ####[facility] [id number] [place] [address] [place] Nucleated RBC/100 WBC (Bld) [Ratio] 0.0 /100 WBC Normal [facility] Comment on above: Order Comment: Speci men Type: BLOOD SPECIMENOrdering Facility: [facility] Address: [address] [place] [address] Performed By: #### 5 7021-8 ####[facility] [id number] [place] [address] [place] Platelet mean volume (Bld) [Entitic vol] 10.3 fL Normal 9.0-12.7 [facility] Comment on above: Order Comment: Speci men Type: BLOOD SPECIMENOrdering Facility: [facility] Address: [address] [place] [address] Performed By: #### 5 7021-8 ####[facility] TRAVISNCJOSEA [id number] [place] [address] [place] Platelets (Bld) [#/Vol] 303 10*3/uL Normal 150-400 [facility] Comment on above: Order Comment: Speci men Type: BLOOD SPECIMENOrdering Facility: [facility] Address: [address] [place] [address] Performed By: #### 5 7021-8 ####[facility] JUANDarianNCLIA [id number] [place] [address] [place] RBC (Bld) [#/Vol] 5.15 10*6/uL Normal 3.90-5.20 [facility] Comment on above: Order Comment: Speci men Type: BLOOD SPECIMENOrdering Facility: [facility] Address: [address] [place] [address] Performed By: #### 5 7021-8 ####[facility] [id number] [place] [address] [place] WBC (Bld) [#/Vol] 7.33 10*3/uL Normal 3.70-11.00 [facility] Comment on above: Order Comment: Speci men Type: BLOOD SPECIMENOrdering Facility: [facility] Address: [address] [place] [address] Performed By: #### 5 7021-8 ####[facility] [id number] [place] [address] [place] CNNURSEon 10-17-2023 [facility] Nurse Visit (FAMPWS) ANGELIQUE WYNNE ([id number]) 1970 F Date Time Provider Department 10/17/23 11:30 AM [place] NURSE PIPE During your visit today, we recorded the following information about you: Earline Zabala LPN 10/17/2023 11:30 AM Signed Patient presents for EKG per Rachel Mcmillan CNP. Denies any problems at this time. Tolerated procedure well. Earline Zabala LPN Referring Provider: RACHEL MCMILLAN [[id number]] Allergies As of Date: 10/17/2023 Noted Allergy Reaction OXALIPLATIN 02/22/2008 10 - Anaphylaxis Comments: Went to [facility] ER 02/08/08 Date Reviewed: 10/07/2023 Reviewed by: Rachel Escalante PSYD - Fully Assessed Reason for Visit: EKG [793] Visit Diagnosis:Class 2 severe obesity with serious comorbidity and body mass index (BMI) of 35.0 to 35.9 in adult, unspecified obesity type (HCC) [E66.01, Z68.35] Order(s):ECG COMPLETE [ECG01] Order #: [id number] Prescriptions as of 10/17/2023 - lisinopril (ZESTRIL) [...] Status:Closed by EARLINE ZABALA on 10/17/23 Normal [facility] Comprehensive metabolic 2000 panelon 10-17-2023 Albumin [Mass/Vol] 4.4 g/dL Normal 3.9-4.9 [facility] [place] Comment on above: Order Comment: Speci men Type: BLOOD SPECIMEN Ordering Facility: [facility] Address: [address] [place] [address] Performed By: #### 2 4323-8 #### [facility] CLIA [id number] [address] [place] [address] [place] ALP [Catalytic activity/Vol] 80 U/L Normal 34-123 [facility] Comment on above: Order Comment: Speci men Type: BLOOD SPECIMEN Ordering Facility: [facility] Address: [address] [place] [address] Performed By: #### 2 4323-8 #### [facility] CLIA [id number] [address] [place] [address] [place] ALT [Catalytic activity/Vol] 18 U/L Normal 7-38 [facility] Comment on above: Order Comment: Speci men Type: BLOOD SPECIMEN Ordering Facility: [facility] Address: [address] [place] [address] Performed By: #### 2 4323-8 #### [facility] CLIA [id number] [address] [place] [address] [place] Anion gap [Moles/Vol] 4 mmol/L Low 9-18 [facility] Comment on above: Order Comment: Speci men Type: BLOOD SPECIMEN Ordering Facility: [facility] Address: [address] [place] [address] Performed By: #### 2 4323-8 #### [facility] CLIA [id number] [address] [place] [address] [place] AST [Catalytic activity/Vol] 15 U/L Normal 13-35 [facility] Comment on above: Order Comment: Speci men Type: BLOOD SPECIMEN Ordering Facility: [facility] Address: [address] [place] [address] Performed By: #### 2 4323-8 #### [facility] CLIA [id number] [address] [place] [address] [place] Bilirubin [Mass/Vol] 0.6 mg/dL Normal 0.2-1.3 [facility] Comment on above: Order Comment: Speci men Type: BLOOD SPECIMEN Ordering Facility: [facility] Address: [address] [place] [address] Performed By: #### 2 4323-8 #### [facility] CLIA [id number] [address] [place] [address] [place] Calcium [Mass/Vol] 10.1 mg/dL Normal 8.5-10.2 [facility] [place] Comment on above: Order Comment: Speci men Type: BLOOD SPECIMEN Ordering Facility: [facility] Address: [address] [place] [address] Performed By: #### 2 4323-8 #### [facility] CLIA [id number] [address] [place] [address] [place] Chloride [Moles/Vol] 103 mmol/L Normal 97-105 [facility] Comment on above: Order Comment: Speci men Type: BLOOD SPECIMEN Ordering Facility: [facility] Address: [address] [place] [address] Performed By: #### 2 4323-8 #### [facility] CLIA [id number] [address] [place] [address] [place] CO2 [Moles/Vol] 32 mmol/L High 22-30 [facility] Comment on above: Order Comment: Speci men Type: BLOOD SPECIMEN Ordering Facility: [facility] Address: [address] [place] [address] Performed By: #### 2 4323-8 #### [facility] CLIA [id number] [address] [place] [address] [place] Creatinine [Mass/Vol] 0.86 mg/dL Normal 0.58-0.96 [facility] Comment on above: Order Comment: Speci men Type: BLOOD SPECIMEN Ordering Facility: [facility] Address: [address] [place] [address] Performed By: #### 2 4323-8 #### [facility] CLIA [id number] [address] [place] [address] [place] Creatinine and Glomerular filtration rate.predicted panel (S/P/Bld) 80 mL/min/1.73m??? Normal >=60 [facility] Comment on above: Order Comment: Yolande dodge Type: BLOOD SPECIMEN Ordering Facility: [facility] Address: [address] [place] [address] Result Comment: Patricia mated Glomerular Filtration Rate [...] GFR. Performed By: #### 2 4323-8 #### [facility] [id number] [address] [place] [address] [place] Glucose [Mass/Vol] 152 mg/dL High 74-99 [facility] [place] Comment on above: Order Comment: Yolande dodge Type: BLOOD SPECIMEN Ordering Facility: [facility] Address: [address] [place] [address] Result Comment: The [place] Diabetes Association (ADA) provides guidance for cutoff [...] Standards of Medical Care in Diabetes 2016, Spanish Diabetes Association. Diabetes Care. 2016.39(Suppl 1). Performed By: #### 2 4323-8 #### [facility] [id number] [address] [place] [address] [place] Potassium [Moles/Vol] 4.4 mmol/L Normal 3.7-5.1 [facility] Comment on above: Order Comment: Yolande dodge Type: BLOOD SPECIMEN Ordering Facility: [facility] Address: [address] [place] [address] Performed By: #### 2 4323-8 #### [facility] CLIA [id number] [address] [place] [address] [place] Protein [Mass/Vol] 7.5 g/dL Normal 6.3-8.0 [facility] [place] Comment on above: Order Comment: Speci men Type: BLOOD SPECIMEN Ordering Facility: [facility] Address: [address] [id number] Performed By: #### 2 4323-8 #### [facility] CLIA [id number] [address] [place] [address] [place] Sodium [Moles/Vol] 139 mmol/L Normal 136-144 [facility] [place] Comment on above: Order Comment: Speci men Type: BLOOD SPECIMEN Ordering Facility: [facility] Address: [facility] [place] [id number] Performed By: #### 2 4323-8 #### [facility] [id number] [address] [place] [address] [place] Urea nitrogen [Mass/Vol] 13 mg/dL Normal 7-21 [facility] Comment on above: Order Comment: Speci men Type: BLOOD SPECIMEN Ordering Facility: [facility] Address: [facility] [place] [id number] Performed By: #### 2 4323-8 #### [facility] [id number] [address] [place] [address] [place] [id number] 10-17-2023 ECG01 Ventricular Rate : 7 7 BPM Atrial Rate : 77 BPM P-R Interval : 132 ms QRS Duration : 68 ms Q-T Interval : 374 ms QTC Calculation(Bazett) : 423 ms Calculated P [place] : 17 degrees Calculated R [place] : 75 degrees Calculated T [place] : 40 degrees NORMAL SINUS RHYTHM NORMAL ECG Confirmed by MD BONILLA GREGORY () on 10/20/2023 8:30:23 AM NAME : ANGELIQUE WYNNE PID : [id number] : 1970 Gender : Female Race : ORD : Procedure Date : Oct 17 2023 11:40:18 Edit Date : Oct 20 2023 08:30:25 Diagnosis: NORMAL SINUS RHYTHM NORMAL ECG Confirmed by MD BONILLA GREGORY () on 10/20/2023 8:30:23 AM Test Reason : Location : 185 : [facility] Overread By : MD BONILLA GREGORY Edited By : MD BONILLA GREGORY Referred By : RACHEL MCMILLAN Acquired by : EARLINE ZABALA Normal [facility] Ferritin SerPl-mCncon 2023 Ferritin [Mass/Vol] 126.0 ng/mL Normal 14.7-205.1 [facility] Comment on above: Order Comment: Speci men Type: BLOOD SPECIMENOrdering Facility: [facility] Address: [address] [place] [address] Performed By: #### 2 284-8, 2132-9, 2276-4 ####[facility] [id number] [place] [address] [place] Folate SerPl-mCncon 10-17-19 Folate [Mass/Vol] 12.7 ng/mL Normal >4.7 [facility] Comment on above: Order Comment: Yolande dodge Type: BLOOD SPECIMENOrdering Facility: [facility] Address: [address] [place] [address] Performed By: #### 2 284-8, 2132-9, 2276-4 ####[facility] [id number] [place] [address] [place] HbA1c (Bld)on 10-17-2023 Average glucose Estimated from glycated hemoglobin (Bld) [Mass/Vol] 151 mg/dL Normal [facility] Comment on above: Order Comment: Yolande men Type: BLOOD SPECIMENOrdering Facility: [facility] Address: [address] [place] [address] Result Comment: eAG: (Estimated average glucose) is a calculated value from HgbA1c and is termite control service representative of the average blood glucose level in the last 2-3 month period. Performed By: #### 5 5454-3 ####[facility] LABCLIA [id number] [place] [address] [place] HbA1c (Bld) [Mass fraction] 6.9 % High 4.3-5.6 [facility] Comment on above: Order Comment: Speci men Type: BLOOD SPECIMENOrdering Facility: [facility] Address: [address] [place] [address] Result Comment: Amer ican Diabetes Association guidelines indicate that patients with HgbA1c in the range 5.7-6.4% are at increased risk for development of diabetes, and intervention by lifestyle modification may be beneficial. HgbA1c greater or equal to 6.5% is considered diagnostic of diabetes. Performed By: #### 5 5454-3 ####[facility] LABIA [id number] [place] [address] [place] Iron and Iron binding capaci ty panelon 10-17-2023 Iron [Mass/Vol] 83 ug/dL Normal 41-186 [facility] Comment on above: Order Comment: Speci men Type: BLOOD SPECIMENOrdering Facility: [facility] Address: [address] [place] [address] Performed By: #### 3 016-3, 81171-8, 72011-8 ####[facility] LABCLIA [id number] [address] [place]#### 39939-0 ####[facility] LABCLIA [id number] [place] [address] [place] [facility] [id number] [place] [address] [place] Iron binding capacity [Mass/Vol] 279 ug/dL Normal 232-386 [facility] Comment on above: Order Comment: Speci men Type: BLOOD SPECIMENOrdering Facility: [facility] Address: [address] [place], [place] [address] Performed By: #### 3 016-3, 25167-9, 51634-0 ####[facility] LABCLIA [id number] [place] [address] [place]#### 25814-0 ####[facility] LABCLIA [id number] [place] [id number] [facility] [id number] [place] [address] [place] Iron/TIBC [Molar ratio] 29.7 % Normal 15.0-57.0 [facility] Comment on above: Order Comment: Speci men Type: BLOOD SPECIMENOrdering Facility: [facility] Address: [address] [place] [address] Performed By: #### 3 016-3, 00200-9, ####[facility] LABCLIA [id number] [place] [address] [place]#### 07878-4 ####[facility] LABCLIA [id number] [address] [id number] [place] [address] [place] Lipid 1996 panelon 4 Cholesterol [Mass/Vol] 189 mg/dL Normal <200 [facility] Comment on above: Order Comment: Speci men Type: BLOOD SPECIMENOrdering Facility: [facility] Address: [address] [place] [id number] Result Comment: <200 mg/dL, Desirable 200-239 mg/dL, Borderline high >239 mg/dL, High Performed By: #### 3 016-3, 95676-1, 16935-3 ####[facility] LABCLIA [id number] [place] [address] [place]#### 09989-3 ####[facility] LABCL[facility] [id number] [address] [id number] [address] [place] Cholesterol in HDL [Mass/Vol] 55 mg/dL Normal >39 [facility] Comment on above: Order Comment: Speci men Type: BLOOD SPECIMENOrdering Facility: [facility] Address: [address] [place] [address] Result Comment: 40-5 9 mg/dL, Acceptable >59 mg/dL, High: Negative risk factor for coronary heart disease <40 mg/dL, Low: Positive risk factor for coronary heart disease Performed By: #### 3 016-3, 47512-9, 31386-7 ####[facility] LABCLIA [id number] [address] [place]#### 98512-9 ####[facility] LABCLIA [id number] [address] [id number] [address] [place] Cholesterol in LDL [Mass/Vol] 115 mg/dL High <100 [facility] Comment on above: Order Comment: Speci men Type: BLOOD SPECIMENOrdering Facility: [facility] Address: [address] [place] [address] Result Comment: <100 mg/dL, Optimal 100-129 mg/dL, Near optimal/above optimal 130-159 mg/dL, Borderline high 160-189 mg/dL, High >189 mg/dL, Very high Secondary prevention optimal LDL Cholesterol levels are recommended to be < 70 mg/dL Performed By: #### 3 016-3, 80831-3, 73347-4 ####[facility] LABCLIA [id number] [address] [place]#### 50569-3 ####[facility] LABCLIA [id number] [address] [id number] [address] STATES [facility] Cholesterol in LDL/Cholesterol in HDL [Mass ratio] 2.09 {ratio} Normal <2.54 [facility] Comment on above: Order Comment: Speci men Type: BLOOD SPECIMENOrdering Facility: [facility] Address: [address] [place] [address] Result Comment: Refklarissa russ: 1. National Cholesterol Education Program ATP III Guideline At-A-Glance Quick Desk Reference: National Heart, Lung, and Blood [place]. National Institutes of Health. 2001: NIH Publication No. 01-3305. 2. An International Atherosclerosis Society position paper: global recommendations for the management of dyslipidemia: executive summary, Atherosclerosis. 2014: 232(2):410-413. Performed By: #### 3 016-3, 55799-0, 77393-2 ####[facility] LABCLIA [id number] [place] [address] [place]#### 85652-5 ####[facility]CL[facility] [id number] [address] [id number] [place] [address] [place] Cholesterol in VLDL [Mass/Vol] 19 mg/dL Normal <30 [facility] Comment on above: Order Comment: Speci men Type: BLOOD SPECIMENOrdering Facility: [facility] Address: [address] [place] [address] Performed By: #### 3 016-3, 26787-4, 31566-5 ####[facility] LABCLIA [id number] [place] [address] [place]#### 08896-9 ####[facility] LABCLIA [id number] [address] [id number] [address] [place] Cholesterol non HDL [Mass/Vol] 134 mg/dL High <130 [facility] Comment on above: Order Comment: Speci men Type: BLOOD SPECIMENOrdering Facility: [facility] Address: [address] [place] [address] Result Comment: <130 mg/dL, Optimal 130-159 mg/dL, Near optimal/above optimal 160-189 mg/dL, Borderline high 190-219 mg/dL, High >219 mg/dL, Very high Secondary prevention optimal non HDL Cholesterol levels are recommended to be <100 mg/dL Performed By: #### 3 016-3, 95157-0, 11693-0 ####[facility] LABCLIA [id number] [place] [address] [place]#### 26171-1 ####[facility] LABCLIA [id number] [address] [id number] [place] [address] [place] Cholesterol.total/Cho lesterol in HDL [Mass ratio] 3.44 {ratio} Normal <5.10 [facility] Comment on above: Order Comment: Speci men Type: BLOOD SPECIMENOrdering Facility: [facility] Address: [address] [place] [address] Performed By: #### 3 016-3, 93598-9, 87643-4 ####[facility] LABCLIA [id number] [place] [address] [place]#### 27968-6 ####[facility] LABCLIA [id number] [address] [id number] [place] [address] [place] FASTING TIME 12 hrs Normal [facility] Comment on above: Order Comment: Speci men Type: BLOOD SPECIMENOrdering Facility: [facility] Address: [address] [place] [address] Performed By: #### 3 016-3, 69091-8, 89934-2 ####[facility] LABCLIA [id number] [place] [address] [place]#### 33232-8 ####[facility] LABCLIA [id number] [place] [address] [place] [facility] [id number] [place] [address] [place] Triglyceride [Mass/Vol] 97 mg/dL Normal <150 [facility] Comment on above: Order Comment: Speci men Type: BLOOD SPECIMENOrdering Facility: [facility] Address: [address] [place] [address] Result Comment: <150 mg/dL, Normal 150-199 mg/dL, Borderline high 200-499 mg/dL, High >499 mg/dL, Very high Performed By: #### 3 016-3, 82743-0, 44316-0 ####[facility] LABCLIA [id number] [place] [address] [place]#### 92818-0 ####[facility] LABCLIA [id number] [place] [address] [place] [facility] [id number] [place] [address] [place] NT-proBNP [facility] 10-16 Natriuretic peptide.B prohormone N-Terminal [Mass/Vol] <36 Normal <125 [facility] Comment on above: Order Comment: Speci men Type: BLOOD SPECIMENOrdering Facility: [facility] Address: [address] [place] [address] [place] [address] Performed By: #### 3 016-3, 58716-3, 13857-7 ####[facility] LABCLIA [id number] [address] [place]#### 32433-4 ####[facility] LABCLIA [id number] [address] [id number] [place] [address] [place] TSH SerPl-aCncon 10-17-2023 TSH Qn 1.370 m[IU]/L Normal 0.270-4.200 [facility] Comment on above: Order Comment: Speci men Type: BLOOD SPECIMENOrdering Facility: [facility] Address: [address] [place] [address] Performed By: #### 3 016-3, 09627-6, 74547-6 ####[facility] LABCLIA [id number] [address] [place]#### 97043-9 ####[facility] LABCLIA [id number] [address] [id number] [place] [address] [place] US ABD [...] No hydronephrosis. Ascites: None. IMPRESSION: Hepatic steatosis. Flame Hardener: PSCEdenilson Transcribe Date/Time: Oct 18 2023 6:43P Dictated by : SHAE MAZARIEGOS DO This examination was interpreted and the report reviewed and electronically signed by: SHAE MAZARIEGOS DO on Oct 18 2023 6:45PM EST [id number] Normal [facility] VITAMIN B1 (THIAMINE), WHOLE BLOODon 10-17-2023 Thiamine (Bld) [Moles/Vol] 136.8 nmol/L Normal 84.3-213.3 [facility] Comment on above: Order Comment: Speci men Type: BLOOD SPECIMENOrdering Facility: [facility] Address: [address] [place] [address] Result Comment: This assay measures the concentration of thiamine diphosphate (TDP), the primary active form of vitamin B1. Approximately 90 percent of vitamin B1 present in whole blood is TDP. Thiamine and thiamine monophosphate, which comprise the remaining 10 percent, are not measured. This test was developed and its performance characteristics determined by [facility]'s [facility] Pathology and Laboratory Medicine [place] (RT-PLMI). It has not been cleared or approved by the FDA. -[facility] is regulated under CLIA as qualified to perform high-complexity testing. This test is used for clinical purposes. It should not be regarded as investigational or for research. Performed By: #### B 1WB ####[facility] LABCLIA [id number] [place] [address] [place] Vit B12 [facility] Cobalamin (Vitamin B12) [Mass/Vol] 257 pg/mL Normal 232-1245 [facility] Comment on above: Order Comment: Speci men Type: BLOOD SPECIMENOrdering Facility: [facility] Address: [address] [facility] [place] [id number] Performed By: #### 2 284-8, 2132-9, 2276-4 ####[facility] LABCLIA [id number] [facility] [id number] [place] [id number] [place] XR CHEST [...] the spine. IMPRESSION: No acute radiographic abnormality. Flame Hardener: ROYA Transcribe Date/Time: Oct 17 2023 3:07P Dictated by : AMELIA SR MD This examination was interpreted and the report reviewed and electronically signed by: AMELIA SR MD on Oct 17 2023 3:08PM EST [id number] Normal [facility] XR Chest PA and Lateralon IMPRESSION: No acute radiographic abnormality. Flame Hardener: PSCB Transcribe Date/Time: Oct 17 2023 3:07P Dictated by : AMELIA SR MD This examination was interpreted and the report reviewed and electronically signed by: AMELIA SR MD on Oct 17 2023 3:08PM [facility] DIV[facility] OF RADIOLOGY * * *Final [...] spine. IMPRESSION IMPRESSION: No acute radiographic abnormality. Flame Hardener: ROYA Transcribe Date/Time: Oct 17 2023 3:07P Dictated by : AMELIA SR MD This examination was interpreted and the report reviewed and electronically signed by: AMELIA SR MD on Oct 17 2023 3:08PM EST [facility] Radiology Study observation (narrative) [facility] XR Chest PA and LateralOrder ed By: Ccf Provider on 10-17-[address] [facility] CNCOon 09-08-2023 [facility] HNO ID: [id number] Author: COORDINATOR, MAMMOGRAPHY, ? Service: ? Author Type: Physician Type: Letter Filed: 09/08/2023 20:00 Note Text: September 09, 2023 PID: [id number] Angelique Wynne [address] [place] [address] Dear Ms. Wynne, We are pleased to [...] report will be kept on file at [facility] as part of your permanent medical record and are available for your continuing care. Thank you for allowing us to help in meeting your health care needs. Sincerely, Dr. Patterson Interpreting Radiologist [facility] (Normal over 40) Normal [facility] SCREENINGon 09-05-2023 [facility] SCREENING * * *Final Report* * * DATE OF EXAM: Sep 05 2023 9:33AM [facility] [address] [facility] SCREENING / PROCEDURE REASON: Screening breast examination * * * * Physician Interpretation * * * * RESULT: #[id number] - [facility] SCREENING BILATERAL DIGITAL SCREENING MAMMOGRAM WITH CAD: 09/05/2023 HISTORY: Screening Breast Examination / Screening Mammogram-Patient reports NO symptoms. RESULT: TECHNIQUE: The study was acquired using full field digital technology and interpreted from soft copy. Current study was also evaluated with a Computer Aided Detection (CAD). Comparison is made to exams dated: 06/17/2022 mammogram, 03/06/2020 mammogram - [facility], 11/19/2017 mammogram - [facility], and 11/01/2016 mammogram - [facility]. There are scattered areas of fibroglandular density. There are stable benign lymph nodes in both breasts. No significant masses, calcifications, or other findings are seen in either breast. There has been no significant interval change. IMPRESSION: BENIGN FINDING There is no mammographic evidence of malignancy. A 1 year screening mammogram is recommended. Yesica phillips/arlene:09/08/2023 20:00:39 Book Cutter(s): RT Cliff(R)(M), [facility] letter sent: Normal over 40 Mammogram BI-RADS: [...] Health, Family Medicine, and Medical/Surgical Oncology, the [facility] has carefully reviewed the data and reached [...] their providers when to stop screening mammograms. Flame Hardener: Arlene Transcribe Date/Time: Sep 05 2023 9:25A Dictated by: YESICA PATTERSON MD This examination was interpreted and the report reviewed and electronically signed by: YESICA PATTERSON MD on Sep 08 2023 8:00PM EST [id number] Normal [facility] CNOVon 06-13-2023 CNOV Office Visit (FAMPWS ) ANGELIQUE WYNNE ([id number]) 1970 F Date Time Provider Department 06/13/23 [...] ALLERGIES Allergen Reactions Oxaliplatin Anaphylaxis Went to [facility] ER 02/08/08 PAST MEDICAL HISTORY Diagnosis Date [...] Bowel s (more content not included)... Normal [facility] HbA1c (Bld)on 06-06-2023 Average glucose Estimated from glycated hemoglobin (Bld) [Mass/Vol] 148 mg/dL Normal [facility] Comment on above: Order Comment: Yolande dodge Type: BLOOD SPECIMENOrdering Facility: [facility] Address: [address] [place] [address] Result Comment: eAG: (Estimated average glucose) is a calculated value from HgbA1c and is termite control service representative of the average blood glucose level in the last 2-3 month period. Performed By: #### 5 5454-3 ####[facility] LABCLIA [id number] [facility] [id number] [place] [address] [place] HbA1c (Bld) [Mass fraction] 6.8 % High 4.3-5.6 [facility] Comment on above: Order Comment: Yolande dodge Type: BLOOD SPECIMENOrdering Facility: [facility] Address: [address] [place] [address] Result Comment: Amer [place] Diabetes Association guidelines indicate that patients with HgbA1c in the range 5.7-6.4% are at increased risk for development of diabetes, and intervention by lifestyle modification may be beneficial. HgbA1c greater or equal to 6.5% is considered diagnostic of diabetes. Performed By: #### 5 5454-3 ####[facility] LABCLIA [id number] [place] [address] [place] GUICHO SCREENINGon 06-17-[address] [facility] Vital Signs Date Time Vital Sign Value Performing Clinician Facility 12-08-2023 09:35-0400 Body height 149.9 cm Jesus Ortiz MD Work Phone: [facility] 12-08-2023 09:35-0400 Body mass index (BMI) [Ratio] 36.36 kg/m2 Jesus Ortiz MD Work Phone: [facility] 12-08-2023 09:35-0400 Body weight 81.65 kg Jesus Ortiz MD Work Phone: [facility] 12-08-2023 09:35-0400 Diastolic blood pressure 79 mm[Hg] Jesus Ortiz MD Work Phone: [facility] 12-08-2023 09:35-0400 Heart rate 79 /min Jesus Ortiz MD Work Phone: [facility] 12-08-2023 09:35-0400 SaO2% (BldA) [Mass fraction] 97 % Jesus Ortiz MD Work Phone: [facility] 12-08-2023 09:35-0400 Systolic blood pressure 123 mm[Hg] Jesus Ortiz MD Work Phone: [facility] 12-05-2023 09:58-0400 Body mass index (BMI) [Ratio] 37.14 kg/m2 Luis Staley MD Work Phone: [facility] 12-05-2023 09:58-0400 Body weight 83.46 kg Luis Staley MD Work Phone: [facility] 12-05-2023 09:58-0400 Diastolic blood pressure 75 mm[Hg] Luis Staley MD Work Phone: [facility] 12-05-2023 09:58-0400 Heart rate 81 /min Luis Staley MD Work Phone: [facility] 12-05-2023 09:58-0400 SaO2% (BldA) [Mass fraction] 98 % Luis Staley MD Work Phone: [facility] 12-05-2023 09:58-0400 Systolic blood pressure 118 mm[Hg] Luis Staley MD Work Phone: [facility] 11-28-2023 09:05-0400 Body height 149.[address] Work Phone: [facility] 11-28-2023 09:05-0400 Body mass index (BMI) [Ratio] 36.37 kg/m2 Rolf Patino RD Work Phone: [facility] 11-28-2023 09:05-0400 Body weight 81.[address] Work Phone: [facility] Comment on above: verbal, per patient 11-13-2023 10:05-0400 Diastolic blood pressure 80 mm[Hg] Higinio Campuzano MD Work Phone: [facility] 11-13-2023 10:05-0400 Heart rate 86 /min Higinio Campuzano MD Work Phone: [facility] 11-13-2023 10:05-0400 Respiratory rate 16 /min Higinio Campuzano MD Work Phone: [facility] 11-13-2023 10:05-0400 SaO2% (BldA) [Mass fraction] 97 % Higinio Campuzano MD Work Phone: [facility] 11-13-2023 10:05-0400 Systolic blood pressure 129 mm[Hg] Higinio Campuzano MD Work Phone: [facility] 11-13-2023 08:30-0400 Body temperature 97.11 [degF] Higinio Campuzano MD Work Phone: [facility] 11-06-2023 07:50-0400 Body height 149.[address] Work Phone: [facility] 11-06-2023 07:50-0400 Body mass index (BMI) [Ratio] 36.33 kg/m2 Rolf Patino RD Work Phone: [facility] 11-06-2023 07:50-0400 Body weight 81.65 kg Rolf Carey SHAH Work Phone: [facility] Comment on above: verbal, per patient 10-21-2023 08:27-0400 Body height 149.9 cm Broderick Ansari MD Work Phone: [facility] 10-21-2023 08:27-0400 Body mass index (BMI) [Ratio] 36.34 kg/m2 Broderick Ansari MD Work Phone: [facility] 10-21-2023 08:27-0400 Body temperature 98.01 [degF] Broderick Asnari MD Work Phone: [facility] 10-21-2023 08:27-0400 Body weight 81.65 kg Broderick Ansari MD Work Phone: [facility] 10-21-2023 08:27-0400 Diastolic blood pressure 74 mm[Hg] Broderick Ansari MD Work Phone: [facility] 10-21-2023 08:27-0400 Heart rate 76 /min Broderick Ansari MD Work Phone: [facility] 10-21-2023 08:27-0400 SaO2% (BldA) [Mass fraction] 95 % Broderick Ansari MD Work Phone: [facility] 10-21-2023 08:27-0400 Systolic blood pressure 149 mm[Hg] Broderick Ansari MD Work Phone: [facility] 10-02-2023 08:54-0400 Body height 149.9 cm Rachel Bulow RECOVERY ROOM RN.HIM ANALYST Work Phone: [facility] 10-02-2023 08:54-0400 Body mass index (BMI) [Ratio] 35.95 kg/m2 Rachel Bulow RECOVERY ROOM RN.HIM ANALYST Work Phone: [facility] 10-02-2023 08:54-0400 Body weight 80.74 kg Rachel Bulow RECOVERY ROOM RN.HIM ANALYST Work Phone: [facility] 12-13-2022 10:46-0400 Body height 152.4 cm Luis Staley MD Work Phone: [facility] 12-13-2022 10:46-0400 Body weight 82.56 kg Luis Staley MD Work Phone: [facility] 12-13-2022 10:46-0400 Diastolic blood pressure 76 mm[Hg] Luis Staley MD Work Phone: [facility] 12-13-2022 10:46-0400 Heart rate 84 /min Luis Staley MD Work Phone: [facility] 12-13-2022 10:46-0400 SaO2% (BldA) [Mass fraction] 97 % Luis Staley MD Work Phone: [facility] 12-13-2022 10:46-0400 Systolic blood pressure 130 mm[Hg] Luis Staley MD Work Phone: [facility] 12-19-2021 09:36-0400 Body weight 83.01 kg Luis Staley MD Work Phone: [facility] 12-19-2021 09:36-0400 Diastolic blood pressure 80 mm[Hg] Luis Staley MD Work Phone: [facility] 12-19-2021 09:36-0400 Heart rate 80 /min Luis Staley MD Work Phone: [facility] 12-19-2021 09:36-0400 Respiratory rate 16 /min Luis Staley MD Work Phone: [facility] 12-19-2021 09:36-0400 Systolic blood pressure 118 mm[Hg] Luis Staley MD Work Phone: [facility] Encounters Encounter Date Encounter Type Care Provider Facility Start: 02-04-2024 End: 02-04-2024 Refill Luis Staley MD Work Phone: [facility] Comment on above: Refill Request Start: 01-19-2024 End: 02-04-2024 Admission to same day surgery center Broderick Ansari MD Work Phone: General Surgery Comment on above: Insurance denial Start: 01-19-2024 End: 02-04-2024 ambulatory Broderick Ansari MD Work Phone: General Surgery Start: 01-08-2024 Admission to [facility] Broderick Ansari MD Work Phone: General Surgery Comment on above: Insurance Authorizat ion Start: 01-08-2024 ambulatory Broderick Ansari MD Work Phone: General Surgery Start: 12-08-2023 End: 02-12-2024 ambulatory LUIS Maya REBEKA Facility:[facility] Start: 12-08-2023 End: 12-08-2023 Patient encounter procedure Jesus Ortiz MD Work Phone: Neurology Comment on above: JNAA (obstructive sle ep apnea) (Primary Dx); Class 2 severe obesity with serious comorbidity and body mass index (BMI) of 35.0 to 35.9 in adult, unspecified obesity type (HCC) Start: 12-05-2023 End: 12-05-2023 ambulatory LUIS REBEKA Facility:[facility] Start: 12-05-2023 End: 12-05-2023 Patient encounter procedure Luis Staley MD Work Phone: [facility] [place] Comment on above: Mixed hyperlipidemia (Primary Dx); Essential hypertension; Diabetes mellitus without complication (HCC); Class 2 severe obesity with serious comorbidity and body mass index (BMI) of 35.0 to 35.9 in adult, unspecified obesity type (HCC); Personal history of rectal cancer Start: 12-02-2023 Telephone encounter Luis Staley MD Work Phone: [facility] [place] Comment on above: Results Start: 12-01-2023 End: 12-01-2023 ambulatory [facility] Facility:[facility] Start: 11-28-2023 End: 11-28-2023 ambulatory [facility] Facility:[facility] Start: 11-28-2023 End: 11-28-2023 Patient encounter procedure Rolf Patino RD Work Phone: [facility] Comment on above: Obesity, Class II, B MN 35-39.9 (Primary Dx); Dietary counseling and surveillance Start: 11-28-2023 End: 11-28-2023 Telemedicine consultation with patient Rolf Carey SHAH Work Phone: [facility] Start: 11-18-2023 ambulatory Luis Staley MD Work Phone: [facility] Comment on above: Blood work Start: 11-13-2023 End: 11-13-2023 ambulatory LUIS STALEY Facility:[facility] Start: 11-13-2023 End: 11-13-2023 Subsequent hospital visit by physician Higinio Campuzano MD Work Phone: Ambulatory Surgery Comment on above: Class 2 severe obesi ty with serious comorbidity and body mass index (BMI) of 35.0 to 35.9 in adult, unspecified obesity type (HCC) [E66.01, Z68.35] Start: 11-07-2023 End: 11-07-2023 ambulatory LUIS STALEY Facility:[facility] Start: 11-06-2023 End: 11-06-2023 ambulatory LUIS STALEY Facility:[facility] Start: 11-06-2023 End: 11-06-2023 Patient encounter procedure Rolf Patino RD Work Phone: [facility] Comment on above: Diabetes mellitus wi thout complication (HCC) (Primary Dx); Obesity, Class II, BMI 35-39.9; Dietary counseling and surveillance Start: 11-06-2023 End: 11-06-2023 Telemedicine consultation with patient Rolf Yashamir SHAH Work Phone: [facility] Start: 11-05-2023 End: 11-06-2023 ambulatory RACHEL SUSANHEBERT Facility:[facility] Start: 10-24-2023 Admission to [facility] Broderick Ansari MD Work Phone: General Surgery Comment on above: Endoscope medication Start: 10-24-2023 ambulatory Broderick Ansari MD Work Phone: General Surgery Start: 10-21-2023 End: 10-21-2023 ambulatory BRODERICK ANSARI Facility:[facility] Start: 10-21-2023 End: 10-21-2023 Patient encounter procedure Broderick Ansari MD Work Phone: General Surgery Comment on above: Class 2 severe obesi ty with serious comorbidity and body mass index (BMI) of 35.0 to 35.9 in adult, unspecified obesity type (HCC) (Primary Dx) Start: 10-17-2023 End: 10-17-2023 Nursing evaluation of patient and report Mi Nurse Work Phone: [facility] [place] Comment on above: Class 2 severe obesi ty with serious comorbidity and body mass index (BMI) of 35.0 to 35.9 in adult, unspecified obesity type (HCC) Start: 10-17-2023 End: 10-17-2023 ambulatory RACHEL MCMILLAN Facility:[facility] Start: 10-17-2023 End: 10-17-2023 ambulatory [facility] Facility:[facility] Start: 10-17-2023 End: 10-17-2023 Subsequent hospital visit by physician [facility] [place] Mob Work Phone: Radiology Comment on above: Class 2 severe obesi ty with serious comorbidity and body mass index (BMI) of 35.0 to 35.9 in adult, unspecified obesity type (HCC) [E66.01, Z68.35] Start: 10-17-2023 End: 10-17-2023 Subsequent hospital visit by physician [facility] 2 Work Phone: Radiology Comment on above: Class 2 severe obesi ty with serious comorbidity and body mass index (BMI) of 35.0 to 35.9 in adult, unspecified obesity type (HCC) [E66.01, Z68.35] Start: 10-17-2023 End: 10-17-2023 ambulatory [facility] Facility:[facility] Start: 10-15-2023 End: 10-16-2023 ambulatory [facility] Facility:[facility] Start: 10-14-2023 Chart abstracting [facility] Work Phone: Neurology Start: 10-07-2023 End: 10-07-2023 ambulatory [facility] Facility:[facility] Start: 10-02-2023 End: 10-02-2023 Admission to same day surgery center Rachel Mcmillan APRN.HIM ANALYST Work Phone: General Surgery BMI Comment on above: Class 2 severe obesi ty with serious comorbidity and body mass index (BMI) of 35.0 to 35.9 in adult, unspecified obesity type (HCC) (Primary Dx) Start: 10-02-2023 End: 10-02-2023 ambulatory [facility] Facility:[facility] Start: 10-02-2023 End: 10-02-2023 Telemedicine consultation with patient Rachel Mcmillan APRN.HIM ANALYST Work Phone: General Surgery BMI Start: 09-08-2023 Documentation procedure Mammog anjali Coordinator [facility] Start: 09-08-2023 Letter encounter Mammography Coordinator [facility] Department Start: 09-05-2023 End: 09-05-2023 ambulatory [facility] Facility:[facility] Start: 09-05-2023 End: 09-05-2023 Subsequent hospital visit by physician Screen Mammo [facility] Comment on above: Screening breast exa mination [Z12.39] Start: 08-13-2023 Refill Oscar argueta PA-C Work Phone: Family Medicine [place] Comment on above: Refill Request Start: 06-13-2023 End: 06-13-2023 ambulatory [facility] Facility:[facility] Start: 06-06-2023 End: 06-06-2023 [facility] Facility:[facility] Start: 02-07-2023 Refill Luis Staley MD Work Phone: [facility] [place] Comment on above: Refill Request Start: 12-13-2022 End: 12-13-2022 Patient encounter procedure Luis Staley MD Work Phone: [facility] [place] Comment on above: Essential hypertensi on (Primary Dx); Mixed hyperlipidemia; Personal history of rectal cancer; Diabetes mellitus without complication (HCC); Vitamin D deficiency; Obesity, Class II, BMI 35-39.9 Start: 08-08-2022 Refill Luis Staley MD Work Phone: [facility] [place] Comment on above: Refill Request Start: 06-17-2022 End: 06-17-2022 Subsequent hospital visit by physician Screen Mammo [facility] Comment on above: Encounter for screen ing mammogram for breast cancer [Z12.31] Start: 12-19-2021 ambulatory Luis Staley MD Work Phone: [facility] [place] Comment on above: Trulicty - A1C Start: 12-19-2021 End: 12-19-2021 Patient encounter procedure Luis Staley MD Work Phone: [facility] [place] Comment on above: Essential hypertensi on (Primary Dx); Diabetes mellitus without complication (HCC); Mixed hyperlipidemia; Malignant neoplasm of colon, unspecified part of colon (HCC) Start: 11-28-2021 ambulatory Luis Staley MD Work Phone: Internal Medicine [facility] [place] Procedures Date Procedure Procedure Detail Performing Clinician Start: 11-13-2023 Esophagogastroduodenoscopy transoral diagnostic Broderick Ansari MD Work Phone: Start: 10-17-2023 Radiologic exam chest 2 views Rachel lira APRN.HIM ANALYST Work Phone: Start: 06-17-2022 End: 06-17-2022 Mammography Bulk Order Provider Start: 03-06-2020 Mammography Luis Staley MD Work Phone: Start: 01-06-2020 Colonoscopy Luis Staley MD Work Phone: Plan of Treatment Date Care Activity Detail Author Start: 01-05-2025 Colonoscopy COLONOSCOPY [facility] Start: 01-05-2025 COLORECTAL CANCER SCREENING COLORECTAL CANCER SCREENING [facility] Start: 01-05-2025 Screening for malignant neoplasm of colon [facility] Start: 12-07-2024 BP Controlled (<130/80) BP Controlled (<130/80) [facility] Start: 12-04-2024 Annual PCP Team Chronic Disease Visit Annual PCP Team Chronic Disease Visit [facility] Start: 12-04-2024 BP Controlled (<130/80) BP Controlled (<130/80) [facility] Start: 11-30-2024 Hepatitis B screening Urine Albumin:Creatinine Ratio [facility] Start: 11-30-2024 Hepatitis B surface antibody level LDL Cholesterol [facility] Start: 10-16-2024 Hepatitis B surface antibody level LDL Cholesterol [facility] Start: 09-04-2024 Screening for malignant neoplasm of breast Mammogram Screening [facility] Start: 06-13-2024 Annual PCP Team Chronic Disease Visit Annual PCP Team Chronic Disease Visit [facility] Start: 06-13-2024 BP Controlled (<130/80) BP Controlled (<130/80) [facility]ic Start: 06-13-2024 Diabetic foot examination Diabetic Foot Exam [facility] Start: 06-07-2024 End: 06-07-2024 Patient encounter procedure 06/07/2024 10:00 AM EST Office Visit [facility] [place] [address] [place] [id number] Luis Staley MD [address] [place], [place] [id number] 6 month follow up [facility] [place] Comment on above: 6 month follow up Start: 06-02-2024 Hemoglobin A1c measurement HbA1C [facility] Start: 05-10-2024 End: 05-10-2024 ambulatory 05/10/2024 8:00 AM EST [facility] [address] [place] [address] Do Lr APRN.HIM ANALYST [address] [place] [address] f/u w/PAP [facility] Neurology Comment on above: f/u w/PAP [facility] Start: 04-18-2024 Hemoglobin A1c measurement HbA1C [facility] Start: 03-16-2024 End: 03-16-2024 ambulatory 03/16/2024 4:00 PM EDT [facility] [address] [place] [address] Do Lr APRN.HIM ANALYST [address] [place] [address] f/u w/PAP [facility] Neurology Comment on above: f/u w/PAP [facility] Start: 02-15-2024 Subsequent hospital visit by physician 02/15/2024 Hospital Encounter [facility] Operating Room [address] [place] [address] [place] [address] [address] [facility] [address] [place] [address] Obesity, Class II, BMI 35-39.9 [E66.9] [facility] Operating Room Comment on above: Obesity, Class II, BMI 35-39.9 [E66.9] Start: 02-12-2024 End: 02-12-2024 ambulatory 02/12/2024 3:30 PM EDT [facility] [address] [place] [address] Puja Greene APRN.HIM ANALYST, PhD [address] [place] [address] sleep study group Per [facility] Comment on above: sleep study group Per [place] Start: 02-01-2024 Influenza vaccination Influenza Vaccine (#1) [facility] c Start: 12-14-2023 ANNUAL PCP TEAM CHRONIC DISEASE VISIT ANNUAL PCP TEAM CHRONIC DISEASE VISIT [facility] Start: 12-14-2023 PNEUMOCOCCAL (1 - PCV) PNEUMOCOCCAL (1 - PCV) [facility] Comment on above: Postponed from 1974 (Declined at t his time) Start: 12-14-2023 Pneumococcal vaccination [facility] Comment on above: Postponed from 1974 (Declined at t his time) Start: 12-14-2023 SHINGRIX VACCINE (1 of 2) SHINGRIX VACCINE (1 of 2) [facility] Comment on above: Postponed from 2018 (Declined at t his time) Start: 12-14-2023 Urine microalbumin profile [facility] Comment on above: Postponed from 1987 (Declined at t his time) Start: 12-08-2023 End: 12-08-2023 Patient encounter procedure 12/08/2023 10:00 AM EDT Office Visit Neurology [address] [place] [address] Jesus Ortiz MD [address] [place] [address] [place] [address] Class 2 severe obesity with serious comorbidity and body mass index (BMI) of 35.... Neurology Comment on above: Class 2 severe obesity with serious lili rbidity and body mass index (BMI) of 35.... Start: 12-07-2023 Hepatitis B screening URINE ALBUMIN:CREATININE RATIO [facility] Start: 12-07-2023 Hepatitis B surface antibody level LDL CHOLESTEROL [facility] Start: 12-05-2023 Hemoglobin A1c measurement HbA1C [facility] Start: 12-05-2023 End: 12-05-2023 Patient encounter procedure 12/05/2023 10:00 AM EDT Office Visit [facility] [place] [address] [place], [place] [phone] Luis Staley MD [address] [place], [place] [phone] 6 mth f/u [facility] [place] Comment on above: 6 mth f/u Start: 12-02-2023 End: 03-02-2024 ALK PHOS ISOENZYM BL ALK PHOS ISOENZYM BL Lab Routine Elevated alkaline phosphatase level Expected: 12/02/2023, Expires: 03/02/2024 [facility] Work Phone: Comment on above: Expected: 12/02/2023, Expires: Start: 11-28-2023 End: 11-28-2023 Patient encounter procedure 11/28/2023 8:00 AM EDT [facility] [address] [place], [place] [id number] Rolf Patino, RD [address] [place] [address] Red/Ansari/0 Diet/MMO [facility] Comment on above: Red/Ansari/0 Diet/MMO Start: 11-18-2023 End: 02-17-2024 Carcinoembryonic Ag [Mass/volume] in Serum or Plasma CARCINOEMBRYONIC ANTIGEN Lab Routine Personal history of rectal cancer Expected: 11/18/2023, Expires: 02/17/2024 [facility] Work Phone: Comment on above: Expected: 11/18/2023, [...] 8:30 AM EDT Office Visit General Surgery [address] [place] [address] [place] [address] [place] [address] Red/Ansari/0 Diet/MMO General Surgery Comment on above: Red/Ansari/0 Diet/MMO Start: 10-17-2023 End: 10-17-2023 Nursing evaluation of patient and report 10/17/2023 11:30 AM EDT Nurse Visit Family Medicine [place] [address] [place], [place] [phone] Nurse, [place] [address] [place] [address] E66.01,Z68.35 (ICD-10-CM) - Class 2 [...] 9:15 AM EDT Results Only [place] [facility] [address] [place] [address] [place] [facility] Start: 10-16-2023 End: 10-16-2023 Patient encounter procedure 10/16/2023 10:00 AM EDT Office Visit Neurology [address] [place] [address] [facility] Comment on above: [facility] Start: 10-02-2023 End: 01-01-2024 25-hydroxyvitamin D3 [Mass/volume] in Serum or Plasma VITAMIN D 25 HYDROXY Lab Routine Class 2 severe obesity with serious comorbidity and body mass index (BMI) of 35.0 to 35.9 in adult, unspecified obesity type (HCC) Expected: 10/02/2023, Expires: 01/01/[address] [facility] Comment on above: Expected: 10/02/2023, Expires: 4 Start: 10-02-2023 End: 01-01-2024 CBC W Auto Differential panel - Blood COMPLETE BLOOD COUNT AND DIFFERENTIAL Lab Routine Class 2 severe obesity with serious comorbidity and body mass index (BMI) of 35.0 to 35.9 in adult, unspecified obesity type (HCC) Expected: 10/02/2023, Expires: 01/01/2024 [facility] Work Phone: Comment on above: Expected: 10/02/2023, Expires: 4 Start: 10-02-2023 End: 01-01-2024 Cobalamin (Vitamin B12) [Mass/volume] in Serum or Plasma VITAMIN B12 Lab Routine Class 2 severe obesity with serious comorbidity and body mass index (BMI) of 35.0 to 35.9 in adult, unspecified obesity type (HCC) Expected: 10/02/2023, Expires: 01/01/[address] [facility] Comment on above: Expected: 10/02/2023, Expires: 4 Start: 10-02-2023 End: 01-01-2024 Comprehensive metabolic 2000 panel - Serum or Plasma COMPREHENSIVE METABOLIC PANEL Lab Routine Class 2 severe obesity with serious comorbidity and body mass index (BMI) of 35.0 to 35.9 in adult, unspecified obesity type (HCC) Expected: 10/02/2023, Expires: 01/01/[address] [facility] Comment on above: Expected: 10/02/2023, Expires: Start: 10-02-2023 End: 01-01-2024 Ferritin [Mass/volume] in Serum or Plasma FERRITIN Lab Routine Class 2 severe obesity with serious comorbidity and body mass index (BMI) of 35.0 to 35.9 in adult, unspecified obesity type (HCC) Expected: 10/02/2023, Expires: 01/01/[address] [facility] Comment on above: Expected: 10/02/2023, Expires: Start: 10-02-2023 End: 01-01-2024 Folate [Mass/volume] in Serum or Plasma FOLATE, SERUM Lab Routine Class 2 severe obesity with serious comorbidity and body mass index (BMI) of 35.0 to 35.9 in adult, unspecified obesity type (HCC) Expected: 10/02/2023, Expires: 01/01/[address] [facility] Comment on above: Expected: 10/02/2023, Expires: Start: 10-02-2023 End: 01-01-2024 Hemoglobin A1c in Blood HEMOGLOBIN A1C Lab Routine Class 2 severe obesity with serious comorbidity and body mass index (BMI) of 35.0 to 35.9 in adult, unspecified obesity type (HCC) Expected: 10/02/2023, Expires: 01/01/[address] [facility] Comment on above: Expected: 10/02/2023, Expires: Start: 10-02-2023 End: 01-01-2024 Iron and Iron binding capacity panel - Serum or Plasma IRON AND TIBC Lab Routine Class 2 severe obesity with serious comorbidity and body mass index (BMI) of 35.0 to 35.9 in adult, unspecified obesity type (HCC) Expected: 10/02/2023, Expires: 01/01/[address] [facility] Comment on above: Expected: 10/02/2023, Expires: Start: 10-02-2023 End: 01-01-2024 Lipid 1996 panel - Serum or Plasma LIPID PANEL BASIC Lab Routine Class 2 severe obesity with serious comorbidity and body mass index (BMI) of 35.0 to 35.9 in adult, unspecified obesity type (HCC) Expected: 10/02/2023, Expires: 01/01/[address] [facility] Comment on above: Expected: 10/02/2023, Expires: Start: 10-02-2023 End: 01-01-2024 Natriuretic peptide.B prohormone N-Terminal [Mass/volume] in Serum or Plasma NT PRO BNP Lab Routine Class 2 severe obesity with serious comorbidity and body mass index (BMI) of 35.0 to 35.9 in adult, unspecified obesity type (HCC) Expected: 10/02/2023, Expires: 01/01/[address] [facility] Comment on above: Expected: 10/02/2023, Expires: Start: 10-02-2023 End: 01-01-2024 Thyrotropin [Units/volume] in Serum or Plasma THYROID STIMULATING HORMONE Lab Routine Class 2 severe obesity with serious comorbidity and body mass index (BMI) of 35.0 to 35.9 in adult, unspecified obesity type (HCC) Expected: 10/02/2023, Expires: 01/01/[address] [facility] Comment on above: Expected: 10/02/2023, Expires: Start: 10-02-2023 End: 01-01-2024 VITAMIN B1 (THIAMINE), WHOLE BLOOD VITAMIN B1 (THIAMINE), WHOLE BLOOD Lab Routine Class 2 severe obesity with serious comorbidity and body mass index (BMI) of 35.0 to 35.9 in adult, unspecified obesity type (HCC) Expected: 10/02/2023, Expires: 01/01/[address] [facility] Comment on above: Expected: 10/02/2023, Expires: Start: 06-17-2023 3 comp foot exam completed DIABETIC FOOT EXAM [facility] Start: 06-17-2023 ANNUAL PCP TEAM CHRONIC DISEASE VISIT ANNUAL PCP TEAM CHRONIC DISEASE VISIT [facility] Start: 06-17-2023 BP CONTROLLED (<130/80) BP CONTROLLED (<130/80) [facility] Start: 06-17-[address] [facility] Start: 06-17-2023 Screening for malignant neoplasm of breast Mammogram Screening [facility] Start: 06-15-2023 End: 08-15-2023 Hemoglobin A1c in Blood HGB A1C Lab Routine Diabetes mellitus without complication (HCC) Expected: 06/15/2023, Expires: 08/15/2023 [facility] Work Phone: Comment on above: Expected: 06/15/2023, Expires: 4 Start: 06-08-2023 Hemoglobin A1c/Hemoglobin.total in Blood HBA1C [facility] Start: 01-31-2023 Covid-19 Vaccine () Covid-19 Vaccine () [facility] Start: 01-31-2023 Influenza vaccination [facility] Start: 12-19-2022 ANNUAL PCP TEAM CHRONIC DISEASE VISIT ANNUAL PCP TEAM CHRONIC DISEASE VISIT [facility] Start: 12-19-2022 Hepatitis B screening URINE ALBUMIN:CREATININE RATIO [facility] Start: 12-14-2022 Hepatitis B surface antibody level LDL CHOLESTEROL [facility] Start: 12-08-2022 Hemoglobin A1c/Hemoglobin.total in Blood HBA1C [facility] Start: 11-19-2022 HPV TESTING HPV TESTING [facility] Start: 11-19-2022 PAP TESTING PAP TESTING [facility] Start: 11-19-2022 Screening for malignant neoplasm of cervix [facility] Start: 06-21-2022 End: 08-21-2022 Carcinoembryonic Ag [Mass/volume] in Serum or Plasma CEA BLD Lab Routine Malignant neoplasm of colon, unspecified part of colon (HCC) Expected: 06/21/2022, Expires: 08/21/2022 [facility] Work Phone: Comment on above: Expected: 06/21/2022, Expires: 3 Start: 06-21-2022 End: 08-21-2022 Hemoglobin A1c in Blood HGB A1C Lab Routine Diabetes mellitus without complication (HCC) Expected: 06/21/2022, Expires: 08/21/2022 [facility] Work Phone: Comment on above: Expected: 06/21/2022, Expires: 3 Start: 06-21-2022 Hemoglobin A1c/Hemoglobin.total in Blood HBA1C [facility] Start: 06-20-2022 3 comp foot exam completed DIABETIC FOOT EXAM [facility] Start: 06-20-2022 ANNUAL PCP TEAM CHRONIC DISEASE VISIT ANNUAL PCP TEAM CHRONIC DISEASE VISIT [facility] Start: 06-20-2022 BP CONTROLLED (<130/80) BP CONTROLLED (<130/80) [facility] Start: 06-08-2022 Hepatitis B surface antibody level LDL CHOLESTEROL [facility] Start: 06-02-2022 DEPRESSION ASSESSMENT DEPRESSION ASSESSMENT [facility] Start: 02-21-2022 Glaucoma screening Dilated Retinal Exam [facility] Start: 02-21-2022 Hepatitis C antibody, confirmatory test DILATED RETINAL EXAM [facility] Start: 01-31-2022 Influenza vaccination INFLUENZA (#1) [facility] Start: 12-19-2021 End: 02-18-2022 ALBUMIN/CREAT RATIO RND UR [facility] Work Phone: Comment on above: Expected: 12/19/2021, Expires: 2 Start: 12-19-2021 End: 02-18-2022 CBC W Auto Differential panel - Blood [facility] Work Phone: Comment on above: Expected: 12/19/2021, Expires: 2 Start: 12-19-2021 End: 02-18-2022 Comprehensive metabolic 2000 panel - Serum or Plasma [facility] Work Phone: Comment on above: Expected: 12/19/2021, Expires: 2 Start: 12-19-2021 End: 02-18-2022 Hemoglobin A1c in Blood [facility] Work Phone: Comment on above: Expected: 12/19/2021, Expires: 2 Start: 12-09-2021 Hepatitis B screening URINE ALBUMIN:CREATININE RATIO [facility] Start: 12-06-2021 Hemoglobin A1c/Hemoglobin.total in Blood HBA1C [facility] Start: 09-12-2021 COVID-19 VACCINE (4 - Booster for Moderna series) COVID-19 VACCINE (4 - Booster for Moderna series) [facility] Start: 03-06-2021 Mammography MAMMOGRAM [facility] Start: 2018 SHINGRIX VACCINE (1 of 2) SHINGRIX VACCINE (1 of 2) [facility] Start: 2013 COLOGUARD (FIT-DNA) COLOGUARD (FIT-DNA) [facility] Start: [address] COLONOGRAPHY [facility] Start: 2013 FECAL OCCULT BLOOD FECAL OCCULT BLOOD [facility] Start: 2013 Screening for malignant neoplasm of colon [facility] Start: 2013 SIGMOIDOSCOPY SIGMOIDOSCOPY [facility] Start: 1987 HEPATITIS B (1 of 3 - Risk 3-dose series) HEPATITIS B (1 of 3 - Risk 3-dose series) [facility] Start: 1987 Urine microalbumin profile [facility] Start: 1986 Anxiety Screening Anxiety Screening [facility] Start: 1986 BP CONTROLLED (<130/80) BP CONTROLLED (<130/80) [facility] Start: 1986 Depression Screening Depression Screening [facility] Start: 1986 HEPATITIS C SCREENING HEPATITIS C SCREENING [facility] Start: 1986 HIV SCREENING HIV SCREENING [facility] Start: 1974 PNEUMOCOCCAL (1 - PCV) PNEUMOCOCCAL (1 - PCV) [facility] Start: 1974 Pneumococcal vaccination Pneumococcal Vaccine (1 of 2 - PCV) [facility] Start: 1968 HEPATITIS B (1 of 3 - 3-dose series) HEPATITIS B (1 of 3 - 3-dose series) [facility] End: 10-01-2024 ECG COMPLETE ECG COMPLETE ECG Routine Class 2 severe obesity with serious comorbidity and body mass index (BMI) of 35.0 to 35.9 in adult, unspecified obesity type (HCC) 1 Occurrences starting 10/02/2023 until 10/01/[address] [facility] Comment on above: 1 Occurrences starting 10/02/2023 until 10/01/2024 End: 10-19-2024 EGD DIAGNOSTIC EGD DIAGNOSTIC Endoscopy Routine Class 2 severe obesity with serious comorbidity and body mass index (BMI) of 35.0 to 35.9 in adult, unspecified obesity type (HCC) 1 Occurrences starting 10/21/2023 until 10/19/2024 [facility] Work Phone: Comment on above: 1 Occurrences starting 10/21/2023 until 10/19/2024 End: 10-01-2024 HOME SLEEP APNEA TEST (HSAT) HOME SLEEP APNEA TEST (HSAT) Procedures Routine Class 2 severe obesity with serious comorbidity and body mass index (BMI) of 35.0 to 35.9 in adult, unspecified obesity type (HCC) 1 Occurrences starting 10/02/2023 until 10/01/[address] [facility] Comment on above: 1 Occurrences starting 10/02/2023 until 10/01/2024 Laps gstr rstcv px w /byp myrtle-en-y limb <150 cm LAPAROSCOPIC GASTRIC RESTRICTIVE SURG W/ BYPASS & MYRTLE-EN-Y 150CM OR LESS Obesity, Class II, BMI 35-39.9 FV OR MG Breast Screening GUICHO SCREENIN G Radiology Routine Screening breast examination 09/05/2023 9:33 AM EDT [facility] Work Phone: End: 12-28-2022 Screening mammography bi 2-view breast inc cad GUICHO SCREENING Radiology Routine Encounter for screening mammogram for breast cancer 1 Occurrences starting 11/28/2021 until 12/28/2022 [facility] Work Phone: Comment on above: 1 Occurrences starting 11/28/2021 until 12/28/2022 SURGICAL PATHOLOGY [facility] Work Phone: Comment on above: Release Upon Ordering for 1 Occurrences starting 11/13/2023, 1 completed End: 10-31-2024 US Abdomen RUQ US ABD RIGHT UPPER QUADRANT Radiology Routine Class 2 severe obesity with serious comorbidity and body mass index (BMI) of 35.0 to 35.9 in adult, unspecified obesity type (HCC) 1 Occurrences starting 10/02/2023 until 10/31/[address] [facility] Comment on above: 1 Occurrences starting 10/02/2023 until 10/31/2024 US Abdomen RUQ US ABD RIGHT UPP ER QUADRANT Radiology Routine Class 2 severe obesity with serious comorbidity and body mass index (BMI) of 35.0 to 35.9 in adult, unspecified obesity type (HCC) 10/17/2023 10:50 AM EDT [facility] Work Phone: End: 10-31-2024 XR Chest PA and Lateral XR CHEST 2V FRONTAL/LAT Radiology Routine Class 2 severe obesity with serious comorbidity and body mass index (BMI) of 35.0 to 35.9 in adult, unspecified obesity type (HCC) 1 Occurrences starting 10/02/2023 until 10/31/[address] [facility] Comment on above: 1 Occurrences starting 10/02/2023 until 10/31/2024 [facility] Immunizations Immunization Date Immunization Notes Care Provider Bernard huff 06-13-2023 COVID-19 vaccine, ag e 12+ yr, 2022- season (PFIZER-BIONTECH) LORY Monroy PA-C Work Phone: [facility] 06-13-2023 influenza, injectabl e, quadrivalent, contains preservative LORY Monroy PA-C Work Phone: [facility] 06-13-2023 influenza virus vacc ine, unspecified formulation Luis Staley MD Work Phone: [facility] 06-17-2022 COVID-19 booster vaccine, age 12+ yr, bivalent (PFIZER-BIONTECH) Luis Staley MD Work Phone: [facility] 06-17-2022 influenza, injectabl e, quadrivalent, contains preservative Luis Staley MD Work Phone: [facility] 06-17-2022 influenza virus vacc ine, unspecified formulation Screen Wstr [facility] 09-07-2020 COVID-19 vaccine, fu ll dose (MODERNA) Luis Staley MD Work Phone: [facility] 08-11-2020 COVID-19 vaccine, fu ll dose (MODERNA) Luis Staley MD Work Phone: [facility] Payers Date Payer Category Payer Private Health Insurance [facility] [id number] 2022-Present [phone] [address] [address] [place] [address] PPO [id number] 2022 Unknown [id number] 2021 Unknown MMO [employer] [id number] 2021-Present [phone] [address] [place] [address] PPO [id number] 2018 Unknown MMO MMO [employer] [id number] 2018-Present [phone] [address] [place] [address] PPO [id number] 2018 Unknown MMO [employer] P[employer] [id number] 2018-Present [phone] [address] [place] [address] PPO [id number] 2018 Unknown [id number] Social History Date Type Detail Facility Start: 06-17-2022 Tobacco smoking stat [facility] Never smoked tobacco [facility] Start: 06-20-2021 End: 10-07-2023 Alcohol intake Current drinker of alcohol (finding) [facility] Start: 06-20-2021 End: 06-11-2022 History SDOH Alcohol Frequency [address] [facility] Start: 06-20-2021 End: 06-11-2022 History SDOH Alcohol Std Drinks [address] [facility] Start: 06-20-2021 End: 06-11-2022 History SDOH Social Connections Phone [address] [facility] Start: 12-04-2019 End: 06-11-2022 History SDOH Social Connections Meetings [address] [facility] Start: 12-03-2019 Education [address] [facility] Start: 1970 Sex Assigned At Female C [facility] Start: 12-09-2021 End: 12-19-2021 Exposure to SARS-CoV-2 (event) Not sure [facility] Start: 06-17-2022 Tobacco use and exposure Smoke less tobacco non-user [facility] Start: 06-11-2022 History SDOH Social Connections [employer] [address] [facility] Start: 06-10-2022 End: 12-13-2022 History of Social function [facility] Start: 06-10-2022 End: 12-13-2022 Social connection and isolation panel [facility] How often do you att end episcopal or sabianism services? Patient refused [facility] Do you belong to any clubs or organizations such as episcopal groups, unions, [employer]Jingle Punks Music or athletic groups, or school groups? Yes [facility] Are you now , , , , never or living with a partner? [facility] How often to you hav e a drink containing alcohol? Monthly or less [facility] How many standard dr inks containing alcohol do you have on a typical day? 1 or [address] [facility] How often do you hav e 6 or more drinks on 1 occasion? Never [facility] Do you feel stress - tense, restless, nervous, or anxious, or unable to sleep at night because your mind is troubled all the time - these days [OSQ] Only a little [facility] (I/We) worried wheth er (my/our) food would run out before (I/we) got money to buy more. Never true [facility] In the past 12 month s, was there a time when you were not able to pay the mortgage or rent on time? No [facility] Start: 12-03-2019 Gender identity Identifies as female gender (finding) [facility] Start: 12-03-2019 Sexual orientation Heterosexual (alin barriga) [facility] Medical Equipment Procedure Code Equipment Code Equipment Origin al Text Equipment Identifier Dates [id number], [id number] Start: 03-06-2020 End: 12-13-2022 Comment on above: [...] EDTPatient Instructions Note Date & Type Note [facility] 02-04-2024 Telephone encounter Note Prescription Refill Information [...] Nogueira LPN February 04, 2024 11:[address] [facility] 02-04-2024 Miscellaneous Notes Prescription Refill Information The [...] 2024 11:10 AM documented in this encounter [facility] 01-08-2024 Note HNO ID: [id number] Author: ?, ?, ? Service: ? Author Type: ? Type: Progress Notes Filed: 01/08/2024 16:00 Note Text: 02/15/2024 is a pseudo date for insurance approval purposes only. This is not an actual procedure date. Alanis Avitia [facility] 01-08-2024 History of Presen t illness Narrative 02/15/2024 is a pseudo date for insurance approval purposes only. This is not an actual procedure date. Alanis Avitia documented in this encounter [facility] 12-08-2023 Note HNO ID: [id number] Author: JESUS ORTIZ MD Service: ? Author Type: Physician Type: Progress Notes Filed: 12/08/2023 10:05 Note Text: [facility] New Patient Evaluation PATIENT NAME: Angelique Wynne DATE OF SERVICE: December 08, 2023 CONSULTING PROVIDER: Rachel Mcmillan [id number] [id number] REASON FOR CONSULT: Rachel Mcmillan sends the [...] difference.) Physical T-Score 50.8 Mental T-Score 53.3 [place] Sleepiness Scale Sitting and Reading? no chance [...] Body Mass In (more content not included)... [facility] 12-08-2023 History of Presen t illness Narrative Images from the original note were not included. [facility] New Patient Evaluation PATIENT NAME: Angelique Wynne DATE OF SERVICE: December 08, 2023 CONSULTING PROVIDER: Rachel Mcmillan [id number] [id number] REASON FOR CONSULT: Rachel Mcmillan sends the [...] difference.) Physical T-Score 50.8 Mental T-Score 53.3 [place] Sleepiness Scale Sitting and Reading? no chance [...] will have a prescription sent to a [employer] medical equipment) company - [employer] [phone] who will be calling you in the next 1-2 weeks or so. Please call them directly or us if you do not hear from them in this time frame. - You should be eligible for new supplies approximately every 3-6 months, depending on your insurance coverage. - If your mask doesn't fit well, call the [employer] company before 30 days are up to [...] which included preparing to see the patient, [id number] patient care, completing clinical documentation, performing a medically appropriate examination, counseling and educating the patient/family/caregiver, ordering medications, tests, or procedures, communicating results to the patient/family/caregiver, and care coordination (not separately reported). Jesus Ortiz MD documented in this encounter [facility] 12-05-2023 Note HNO ID: [id number] Author: LUIS STALEY MD Service: ? Author [...] Abs Lymph 1.00 - 4.00 k/uL 2.51 Webb% % 5.2 Abs Webb <0.87 k/uL 0.45 Eosin% % 2.9 Abs [...] ALLERGIES Allergen Reactions Oxaliplatin Anaphylaxis Went to [facility] ER 02/08/08 PAST MEDICAL HISTORY Diagnosis Date [...] past medical history, (more content not included)... [facility] 12-05-2023 History of Presen t illness [...] Abs Lymph 1.00 - 4.00 k/uL 2.51 Webb% % 5.2 Abs Webb <0.87 k/uL 0.45 Eosin% % 2.9 Abs [...] ALLERGIES Allergen Reactions Oxaliplatin Anaphylaxis Went to [facility] ER 02/08/08 PAST MEDICAL HISTORY Diagnosis Date [...] Luis Staley MD documented in this encounter [facility] 12-02-2023 Telephone encounter Note Patient informed and verbalized understanding. Luz Marina Leung MA [facility] 12-02-2023 Miscellaneous Notes Patient informed and verbalized understanding. Luz Marina Leung MA Labs are all ok. Only thing slightly abnormal is a mildly increased alk phos. A blood enzyme that can occur from a number of sources and may be a benign finding in many people. I would simply repeat it in a few weeks and break it down. documented in this encounter [facility] 12-02-2023 Telephone encounter Note Labs are all ok. Only thing slightly abnormal is a mildly increased alk phos. A blood enzyme that can occur from a number of sources and may be a benign finding in many people. I would simply repeat it in a few weeks and break it down. [facility] 11-28-[address] - 11/28/2023 9:13 AM EDT Please call [phone], option 5. Leave a message for the navigation team when you are finished with all clearances (nutrition, psychology, medical, surgeon) 1.Starting ~3 weeks after surgery take daily bariatric vitamins Some examples of vitamins/mineral companies: - Bariatric Fusion: 4 Complete Multivitamin chewables per day OR 1 Multivitamin capsule and 2982-3878 mg calcium citrate per day OR 2 Multivitamin soft chews per day + 3 calcium citrate soft chews + 1 iron soft chew per day [email or web address] - [employer]: 1 Bariatric Multivitamin w/ iron (capsule or chewable) and 6578-0364 mg calcium citrate per day [email or web address] Media - Bariatric Choice: 1 Once Daily Bariatric Multivitamin capsule and 7354-7184 mg calcium citrate per day OR 4 All-in-One Bariatric Multivitamin chewables per day [email or web address] Media - Bariatric Advantage: 1 Ultra Solo multivitamin w/ iron (chewable or capsule) OR 2 chewable Advanced Multi EA w/ iron and 0915-1038 mg calcium citrate per day OR 2 Multi Chewy Bites and 6656-4294 mg calcium citrate and 45-60 mg iron per day [email or web address] Media - Bariatric Pal: 1 Multivitamin One (chewable or capsule) and 3687-0968 mg calcium citrate per day OR 4 All-in-One Multivitamin chewables per day [email or web address] Media/colle ctions/bariatric-vitamins - Barilife: 1 Just One Bariatric Multivitamin w/ iron (chewable or capsule) and 0837-7589 mg calcium citrate per day [email or web address] Media - Barimelts: 2 Multivitamin w/ iron tablets and 8512-1610 mg calcium citrate per day [email or web address] Media 2. Protein goal: 68 grams protein/day 3. [...] Advanced Nutrition OR 5.5 packets Light Start Mccamey Breakfast Essentials mixed with 1% or skim [...] 2 weeks pre-op documented in this encounter [facility] 11-28-2023 History of Presen t illness Narrative AMBULATORY PATIENT EDUCATION NOTE- Shared Virtual Nutrition Group I have communicated my name and active licensure. The patient's identity and physical location were verified at the time of this visit. Either the patient or their legal termite control service representative has been informed of the risks [...] Your Guide to Surgery by next session [email or web address]? la=en 2. Do not skip meals. 3. Use protein shake 1x per day to replace any skipped meals or for breakfast -Start to try the approved pre-op protein shake options: Slim Fast Advanced Nutrition OR Light Start Mccamey Breakfast Essentials mixed with 1% or skim [...] per day OR 1 Multivitamin capsule and 6065-6288 mg calcium citrate per day OR 2 Multivitamin soft chews per day + 3 calcium citrate soft chews + 1 iron soft chew per day www.bariatricfusion.ELDR Media - Procare Health: 1 Bariatric Multivitamin w/ iron (capsule or chewable) and 0501-6536 mg calcium citrate per day www.Click Contact.ELDR Media - Bariatric Choice: 1 Once Daily Bariatric Multivitamin capsule and 5553-8529 mg calcium citrate per day OR 4 All-in-One Bariatric Multivitamin chewables per day www.bariatricchoice.com - Bariatric Advantage: 1 Ultra Solo multivitamin w/ iron (chewable or capsule) OR 2 chewable Advanced Multi EA w/ iron and 3326-5813 mg calcium citrate per day OR 2 Multi Chewy Bites and 8132-7693 mg calcium citrate and 45-60 mg iron per day www.bariatricadvantage.com - Bariatric Pal: 1 Multivitamin One (chewable or capsule) and 4265-9722 mg calcium citrate per day OR 4 All-in-One Multivitamin chewables per day www.Fresh Nation.bariatricpal.ELDR Media/colle ctions/bariatric-vitamins - Barilife: 1 Just One Bariatric Multivitamin w/ iron (chewable or capsule) and 4292-0539 mg calcium citrate per day www.marinanow.ELDR Media - Barimelts: 2 Multivitamin w/ iron tablets and 8928-0409 mg calcium citrate per day www.Adaptly.ELDR Media Pre-op goal weight: maintain current weight Protein [...] intake at meals and snacks Please call [phone], option 5. Leave a message for the navigation team when you are finished with all clearances (nutrition, psychology, medical, surgeon) 1.Starting ~3 weeks after surgery take daily bariatric vitamins Some examples of vitamins/mineral companies: - Bariatric Fusion: 4 Complete Multivitamin chewables per day OR 1 Multivitamin capsule and 4897-7099 mg calcium citrate per day OR 2 Multivitamin soft chews per day + 3 calcium citrate soft chews + 1 iron soft chew per day www.bariatricfusion.com - Procare Health: 1 Bariatric Multivitamin w/ iron (capsule or chewable) and 1744-3228 mg calcium citrate per day www.MarketVibe - Bariatric Choice: 1 Once Daily Bariatric Multivitamin capsule and 2522-5889 mg calcium citrate per day OR 4 All-in-One Bariatric Multivitamin chewables per day www.bariatricSendia.ELDR Media - Bariatric Advantage: 1 Ultra Solo multivitamin w/ iron (chewable or capsule) OR 2 chewable Advanced Multi EA w/ iron and 9727-1937 mg calcium citrate per day OR 2 Multi Chewy Bites and 7924-5307 mg calcium citrate and 45-60 mg iron per day www.bariatricadHospitalists Now.ELDR Media - Bariatric Pal: 1 Multivitamin One (chewable or capsule) and 7200-0025 mg calcium citrate per day OR 4 All-in-One Multivitamin chewables per day www.Sevenpopbariatricpal.ELDR Media/colle ctions/bariatric-vitamins - Barilife: 1 Just One Bariatric Multivitamin w/ iron (chewable or capsule) and 6228-0468 mg calcium citrate per day www.marinanow.ELDR Media - Barimelts: 2 Multivitamin w/ iron tablets and 6462-2798 mg calcium citrate per day www.Medingo Medical SolutionsmelMygistics.ELDR Media 2. Protein goal: 68 grams protein/day 3. [...] Advanced Nutrition OR 5.5 packets Light Start Mccamey Breakfast Essentials mixed with 1% or skim [...] Rolf Patino RD documented in this encounter [facility] 11-28-2023 Note HNO ID: [id number] Author: ROLF PATINO RD Service: ? Author Type: Registered Dietitian Type: Progress Notes Filed: 11/28/2023 09:13 Note Text: AMBULATORY PATIENT EDUCATION NOTE- Shared Virtual Nutrition Group I have communicated my name and active licensure. The patient's identity and physical location were verified at the time of this visit. Either the patient or their legal termite control service representative has been informed of the risks [...] Your Guide to Surgery by next session [email or web address]?la=en 2. Do not skip meals. 3. Use protein shake 1x per day to replace any skipped meals or for breakfast -Start to try the approved pre-op protein shake options: Slim Fast Advanced Nutrition OR Light Start Mccamey Breakfast Essentials mixed with 1% or skim [...] per day OR 1 Multivitamin capsule and 8420-0136 mg calcium citrate per day OR 2 Multivitamin soft chews per day + 3 calcium citrate soft chews + 1 iron soft chew per day www.bariatricfusion.com - Procare Health: 1 Bariatric Multivitamin w/ iron (capsule or chewable) and 2896-0267 mg calcium citrate per day www.SupremexareRewalk Robotics.ELDR Media - Bariatric Choice: 1 Once Daily Bariatric Multivitamin capsule and 9701-2943 mg calcium citrate per day OR 4 All-in-One Bariatric Multivitamin chewables per day www.bariatricchoice.ELDR Media - Bariatric Advantage: 1 Ultra Solo multivitamin w/ iron (chewable or capsule) OR 2 chewable Advanced Multi EA w/ iron and 2409-8330 mg calcium citrate per day OR 2 Multi Chewy Bites and 0755-2333 mg calcium citrate and 45-60 mg iron per day www.bariatricadvantage.ELDR Media - Bariatric Pal: 1 Multivitamin One (chewable or capsule) and 7330-1280 mg calcium citrate per day OR 4 All-in-One Multivitamin chewables per day www.Sevenpopbariatricpal.ELDR Media/colle ctions/bariatric-vitamins - Barilife: 1 Just One Bariatric Multivitamin w/ iron (chewable or capsule) and 9177-2507 mg calcium citrate per day www.Busy Street - Barimelts: 2 Multivitamin w/ iron tablets and 3603-3717 mg calcium citrate per day www.barimelts.ELDR Media Pre-op goal weight: maintain current weight Protein [...] appointment. Patient participate (more content not included)... [facility] 11-18-2023 Telephone encounter Note ordered [facility] 11-18-2023 Miscellaneous Notes ordered Please review pt message. Appears that all labs have been completed other than a CEA BLD test. Please advise if needing any other labs. Alyssia Godinez MA documented in this encounter [facility] 11-18-2023 Telephone encounter Note Please review pt message. Appears that all labs have been completed other than a CEA BLD test. Please advise if needing any other labs. Alyssia Godinez MA [facility] 11-13-2023 Nurse Note Pt. arrived to phase 2 resting on left side. SR up x 2, call light in reach. Naila Navarro RN [facility] 11-13-2023 Nurse Note Pt. arrived to phase 2 resting on left side. SR up x 2, call light in reach. Naila Navarro RN documented in this encounter [facility] 11-13-2023 Note Formatting of this n ote might be different from the original. The patient received a copy of EGD discharge instructions that contain information for how to contact the physician who performed the procedure and when to seek medical care. [facility] 11-13-2023 Miscellaneous Notes The patient received a copy of EGD discharge instructions that contain information for how to contact the physician who performed the procedure and when to seek medical care. documented in this encounter [facility] 11-13-2023 History and physical note PATIENT NAME: [...] her job soon. She has been in [facility] for her DM for few years and [...] ALLERGIES Allergen Reactions Oxaliplatin Anaphylaxis Went to [facility] ER 02/08/08 FAMILY HISTORY: FAMILY HISTORY FAMILY [...] goal weight prior to liquid fast: Per pipeline engineer Surgically Cleared with completion of the below: [...] DATE: November 13, 2023 TIME: 8:[address] [facility] 11-13-2023 History and physical note PATIENT NAME: [...] ALLERGIES Allergen Reactions Oxaliplatin Anaphylaxis Went to [facility] ER 02/08/08 FAMILY HISTORY: FAMILY HISTORY FAMILY [...] goal weight prior to liquid fast: Per pipeline engineer Surgically Cleared with completion of the below: [...] TIME: 8:43 AM documented in this encounter [facility] 11-10-2023 Note HNO ID: [id number] Author: ?, ?, ? Service: ? Author Type: ? Type: Progress Notes Filed: 11/10/2023 12:39 Note Text: Sleep Study Check-In Documentation Date: November 10, 2023 Name: Angelique Bansalple Comments: HST was returned in working order without all sleep questionnaires Patient was contacted and sleep questionnaires were completed telephonically Betsy Diez [facility] 11-10-2023 History of Presen t illness Narrative Sleep Study Check-In Documentation Date: November 10, 2023 Name: Angelique Bansalple Comments: HST was returned in working order without all sleep questionnaires Patient was contacted and sleep questionnaires were completed telephonically Betsy Diez Nomad # [id number] , date shipped out 11-05-23 Fed Ex only Tracking mailout: [id number] Tracking return: [phone] Rescheduled 11/05. Sleep Study Check-In Documentation Date: October 21, 2023 Name: Angelique Wynne Comments: HST was returned in work order. Study failed due to the belts,Pt sent a MC to leonardo. Romi Clark Nomad# [id number] +gps Date shipped out 10/14 SENT [employer]EX - [employer] RETURN Tracking Mailout: [id number] Tracking Return: [id number] October 14, 2023 Standing PSG Orders signed in the last 90 days None Future PSG Orders signed in the last 90 days Ordered Auth. provider HOME SLEEP APNEA TEST (HSAT) [[id number]] 10/02/23 Rachel Mcmillan APRN.HIM ANALYST Assoc. diagnoses: Class 2 severe obesity with [...] No CONSULT TO SLEEP MEDICINE - ADULT [[id number]] 10/02/23 Rachel Mcmillan, RECOVERY ROOM RN.HIM ANALYST Assoc. diagnoses: Class 2 severe obesity with [...] Sleep Apnea Test (HSAT) from Rachel Gracia, LESLIE.HIM ANALYST , lucien Pyle. [facility] Staff. Visit prep complete. Comments :No The sleep study is scheduled for 10/18. Insurance: Payor: MMO / Plan: MMO SUPERMED PPO / Product Type: PPO / Payer/Plan Subscr Sex Relation Sub. Ins. ID Effective Group Num 1. MMO - MMO SUP* ANGELIQUE WYNNE 1970 Female Self [id number] 11/30/18 [id number] [address] Anali Polanco documented in this encounter [facility] 11-07-2023 Note HNO ID: [id number] Author: RACHEL ESCALANTE PSYD Service: ? Author Type: Psychologist Type: Progress Notes Filed: 11/07/2023 12:38 Note Text: [facility] Bariatric Behavioral Services Progress Note Patient Name: Angelique Wynne 11/07/2023 Cost Center: [facility] Billing codes: Rory BMI Surgical Pathway Visit type: Psychology Visit CPT Code: 65674 Brief Emotional/Behavioral Assessment with scoring/documentation [id number] Virtual Psychotherapy 38-52 minutes 11:00AM to 11:40AM The following visit was completed virtually and informed consent obtained via IMN (see consent dated 09/30/23); the behavioral health [...] visit. Either the patient or their legal termite control service representative has been informed of the risks [...] of Virtual Visit: Pt car parked at [address] [address] Emergency Contact: Chuck Wynne (Spouse) at [phone] Of note, Pt briefly lost connection to [...] had MBS Patient follows up with this policy writer typist today to discuss emotional preparation for surgery. [...] 1 beer since last visit with this policy writer typist (her first drink in 6 months) and demonstrated appropriate understanding of post-op risks. She continues to deny recent tobacco or illicit drug use. Interventions: 1). Review of behavioral progress 2). Education on RYGB risks and behavioral changes 3). Relapse prevention 4). Discussion of monitoring progress post-op and long-term weight manag (more content not included)... [facility] 11-06-2023 Instructions Rolf Patino, PABLO - 11/06/2023 8:23 AM EDT 1. Read Nutritional Guidelines Section of Your Guide to Surgery by next session [email or web address] /[email or web address]? la=en 2. Do not skip meals. 3. Use protein shake 1x per day to replace any skipped meals or for breakfast -Start to try the approved pre-op protein shake options: Slim Fast Advanced Nutrition OR Light Start Mccamey Breakfast Essentials mixed with 1% or skim [...] per day OR 1 Multivitamin capsule and 1686-6680 mg calcium citrate per day OR 2 Multivitamin soft chews per day + 3 calcium citrate soft chews + 1 iron soft chew per day www.bariatricfusion.com - Tallyfy Health: 1 Bariatric Multivitamin w/ iron (capsule or chewable) and 8894-0985 mg calcium citrate per day www.MarketVibe - Bariatric Choice: 1 Once Daily Bariatric Multivitamin capsule and 2867-7511 mg calcium citrate per day OR 4 All-in-One Bariatric Multivitamin chewables per day www.bariatricchoice.com - Bariatric Advantage: 1 Ultra Solo multivitamin w/ iron (chewable or capsule) OR 2 chewable Advanced Multi EA w/ iron and 6076-0151 mg calcium citrate per day OR 2 Multi Chewy Bites and 2318-1497 mg calcium citrate and 45-60 mg iron per day www.bariatricadOmegaGenesisage.com - Bariatric Pal: 1 Multivitamin One (chewable or capsule) and 8781-2133 mg calcium citrate per day OR 4 All-in-One Multivitamin chewables per day www.Sevenpopbariatricpal.ELDR Media/colle ctions/bariatric-vitamins - Barilife: 1 Just One Bariatric Multivitamin w/ iron (chewable or capsule) and 5969-0335 mg calcium citrate per day www.[address] - Barimelts: 2 Multivitamin w/ iron tablets and 0889-3423 mg calcium citrate per day www.barimelts.ELDR Media Pre-op goal weight: maintain current weight Protein needs: 68 gm per day Nutrition Monitoring & Evaluation: 1-2 pounds weight loss per week Need for Follow up: 3-4 weeks, [phone] documented in this encounter [facility] 11-06-2023 Note HNO ID: [id number] Author: ROLF PATINO RD Service: ? Author Type: Registered Dietitian Type: Progress Notes Filed: 11/06/2023 08:26 Note Text: The [facility] Nutrition Therapy: Virtual Consult - Initial Assessment I have communicated my name and active licensure. The patient?s identity and physical location were verified at the time of this visit. Either the patient or their legal termite control service representative has been informed of the risks [...] Your Guide to Surgery by next session [email or web address] /[email or web address]?la=en 2. Do not skip meals. 3. Use protein shake 1x per day to replace any skipped meals or for breakfast -Start to try the approved pre-op protein shake options: Slim Fast Advanced Nutrition OR Light Start Mccamey Breakfast Essentials mixed with 1% or skim [...] per day OR 1 Multivitamin capsule and 6572-3505 mg calcium citrate per day OR 2 Multivitamin soft chews per day + 3 calcium citrate soft chews + 1 iron soft chew per day www.bariatricfusion.com - Procare Health: 1 Bariatric Multivitamin w/ iron (capsule or chewable) and 7614-7255 mg calcium citrate per day www.SupremexareRewalk Robotics.ELDR Media - Bariatric Choice: 1 Once Daily Bariatric Multivitamin capsule and 0159-1530 mg calcium citrate per day OR 4 All-in-One Bariatric Multivitamin chewables per day www.bariatricchoice.ELDR Media - Bariatric Advantage: 1 Ultra Solo multivitamin w/ iron (chewable or capsule) OR 2 chewable Advanced Multi EA w/ iron and 9723-3765 mg calcium citrate per day OR 2 Multi Chewy Bites and 1401-8642 mg calcium citrate and 45-60 mg iron per day www.bariatricadvantage.com - Bariatric Pal: 1 Multivitamin One (chewable or capsule) and 6936-4728 mg calcium citrate per day OR 4 All-in-One Multivitamin chewables per day www.Fresh Nation.Gamma 2 Robotics.ELDR Media/colle ctions/bariatric-vitamins - Barilife: 1 Just One Bariatric Multivitamin w/ iron (chewable or capsule) and 7504-8813 mg calcium citrate per day www.bariOSIX.ELDR Media - Barimelts: 2 Multivitamin w/ iron tablets and 8272-0918 mg calcium citrate per day www.barimelts.ELDR Media Pre-op goal weight: maintain current weight Protein needs: 68 gm per day Nutrition Monitoring AND Evaluation: 1-2 pounds weight loss per week Need for Follow up: 3-4 weeks, [phone] Patient presents for initial MNT consult in [...] to SSBs a (more content not included)... [facility] 11-06-2023 History of Presen t illness Narrative [facility] Nutrition Therapy: Virtual Consult - Initial Assessment I have communicated my name and active licensure. The patient s identity and physical location were verified at the time of this visit. Either the patient or their legal termite control service representative has been informed of the risks [...] Your Guide to Surgery by next session https://[email or web address] /[email or web address]? la=en 2. Do not skip meals. 3. Use protein shake 1x per day to replace any skipped meals or for breakfast -Start to try the approved pre-op protein shake options: Slim Fast Advanced Nutrition OR Light Start Mccamey Breakfast Essentials mixed with 1% or skim [...] per day OR 1 Multivitamin capsule and 8269-9998 mg calcium citrate per day OR 2 Multivitamin soft chews per day + 3 calcium citrate soft chews + 1 iron soft chew per day www.bariatricfusion.com - Procare Health: 1 Bariatric Multivitamin w/ iron (capsule or chewable) and 7762-7255 mg calcium citrate per day www.Click Contact.ELDR Media - Bariatric Choice: 1 Once Daily Bariatric Multivitamin capsule and 5354-6837 mg calcium citrate per day OR 4 All-in-One Bariatric Multivitamin chewables per day www.bariatricchoTealet.ELDR Media - Bariatric Advantage: 1 Ultra Solo multivitamin w/ iron (chewable or capsule) OR 2 chewable Advanced Multi EA w/ iron and 0888-7488 mg calcium citrate per day OR 2 Multi Chewy Bites and 8277-3864 mg calcium citrate and 45-60 mg iron per day www.bariatricadHospitalists Now.ELDR Media - Bariatric Pal: 1 Multivitamin One (chewable or capsule) and 2507-0113 mg calcium citrate per day OR 4 All-in-One Multivitamin chewables per day www.Epoxy/colle ctions/bariatric-vitamins - Barilife: 1 Just One Bariatric Multivitamin w/ iron (chewable or capsule) and 6663-4484 mg calcium citrate per day www.marinanow.ELDR Media - Barimelts: 2 Multivitamin w/ iron tablets and 0025-7617 mg calcium citrate per day www.barimelts.ELDR Media Pre-op goal weight: maintain current weight Protein needs: 68 gm per day Nutrition Monitoring & Evaluation: 1-2 pounds weight loss per week Need for Follow up: 3-4 weeks, [phone] Patient presents for initial MNT consult in [...] although suspect low in intensity and duration. [place] body weight: 124 lbs. Excess body weight: [...] AM PAGER: N/A documented in this encounter [facility] 11-05-2023 Note HNO ID: [id number] Author: ?, ?, ? Service: ? Author Type: ? Type: Progress Notes Filed: 11/10/2023 12:39 Note Text: Nomad # [id number] , date shipped out 11-05-23 Fed Ex only Tracking mailout: [id number] Tracking return: [id number] [facility] 10-21-2023 Note HNO ID: [id number] Author: ?, ?, ? Service: ? Author Type: ? Type: Progress Notes Filed: 11/10/2023 12:39 Note Text: Rescheduled 11/05. [facility] 10-21-2023 Note HNO ID: [id number] Author: ?, ?, ? Service: ? Author Type: ? Type: Progress Notes Filed: 11/10/2023 12:39 Note Text: Sleep Study Check-In Documentation Date: October 21, 2023 Name: Angelique Wynne Comments: HST was returned in work order. 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 Romi Clark [facility] 10-21-2023 History of Presen t illness [...] her job soon. She has been in [facility] for her DM for few years and [...] ALLERGIES Allergen Reactions Oxaliplatin Anaphylaxis Went to [facility] ER 02/08/08 FAMILY HISTORY: FAMILY HISTORY Adopted: [...] goal weight prior to liquid fast: Per pipeline engineer Surgically Cleared with completion of the below: [...] Broderick Ansari MD documented in this encounter [facility] 10-21-2023 Note HNO ID: [id number] Author: BRODERICK ANSARI MD Service: ? Author [...] her job soon. She has been in [facility] her DM for few years and hopes bariatric surgery will help her get off the [facility]. Patient has been obese since young adulthood. [...] ALLERGIES Allergen Reactions Oxaliplatin Anaphylaxis Went to [facility] ER 02/08/08 FAMILY HISTORY: FAMILY HISTORY Adopted: [...] Anicteric sclera. Pupils (more content not included)... [facility] 10-21-2023 Nurse Note What is the reason for your visit today? New BMI Who is your referring physician? Program Are you having poor oral intake? NO Have you had unintentional weight loss of 15 lbs/7 Kg in the last 3-6 months? NO Bowels: vary Wound: Temperature: No Drains: No [facility] 10-21-2023 Nurse Note What is the reason for your visit today? New BMI Who is your referring physician? Program Are you having poor oral intake? NO Have you had unintentional weight loss of 15 lbs/7 Kg in the last 3-6 months? NO Bowels: vary Wound: Temperature: No Drains: No documented in this encounter [facility] 10-20-2023 Instructions Alanis Avitia RN - 10/20/2023 2:[address] Ansari has requested a pre operative upper endoscopy (EGD) for your bariatric surgery. This procedure is to examine your stomach and small intestines. To schedule an Upper Endoscopy (EGD): Call [phone] -Select Option to schedule an appointment -Request to schedule an upper endoscopy -There are multiple [facility] locations to choose from and the rodding anode worker will assist with appointment for procedure. What [...] is especially important if you have had hjtmc-oollbpaex-vbldn surgery in the past. How is an [...] Alanis Gray RN documented in this encounter [facility] 10-17-2023 Note HNO ID: [id number] Author: EARLINE ZABALA LPN Service: ? Author Type: LICENSED NURSE Type: Progress Notes Filed: 10/17/2023 11:30 Note Text: Patient presents for EKG per Rachel Mcmillan CNP. Denies any problems at this time. Tolerated procedure well. Earline Zabala LPN [facility] 10-17-2023 History of Presen t illness Narrative Patient presents for EKG per Rachel Mcmillan CNP. Denies any problems at this time. Tolerated procedure well. Earline Zabala LPN documented in this encounter [facility] 10-17-2023 History of Presen t illness [...] PATIENT PRESENTS WITH AN IMPLANTABLE OR ATTACHED POWER GENERATION TECHNICIAN: No RADIOLOGY DEPARTMENT: General X-ray: Exam(s) Completed: Chest X-Ray PERIPHERAL IV DATA: Not applicable SIGNED BY: RT Jose(Mallika) October 17, 2023 10:37 AM documented in this encounter [facility] 10-17-2023 Note HNO ID: [id number] Author: CHIDI CONNER RT(Mallika) Service: ? Author Type: Rope Walker Type: Progress Notes Filed: 10/17/2023 10:45 Note [...] PATIENT PRESENTS WITH AN IMPLANTABLE OR ATTACHED POWER GENERATION TECHNICIAN: No RADIOLOGY DEPARTMENT: General X-ray: Exam(s) Completed: Chest X-Ray PERIPHERAL IV DATA: Not applicable SIGNED BY: RT Jose(R) October 17, 2023 10:37 AM [facility] 10-17-2023 History of Presen t illness [...] PATIENT PRESENTS WITH AN IMPLANTABLE OR ATTACHED POWER GENERATION TECHNICIAN: No RADIOLOGY DEPARTMENT: Ultrasound PERIPHERAL IV DATA: Not applicable SIGNED BY: Joseline Jaquez RDMS RVT October 17, 2023 2:55 PM documented in this encounter [facility] 10-17-2023 Note HNO ID: [id number] Author: JOSELINE JAQUEZ RDMS Service: ? Author Type: Sole Skiver Type: Progress Notes Filed: 10/17/2023 14:55 Note [...] PATIENT PRESENTS WITH AN IMPLANTABLE OR ATTACHED POWER GENERATION TECHNICIAN: No RADIOLOGY DEPARTMENT: Ultrasound PERIPHERAL IV DATA: Not applicable SIGNED BY: Joseline Jaquez RDMS RVT October 17, 2023 2:55 PM [facility] 10-15-2023 Note HNO ID: [id number] Author: ?, ?, ? Service: ? Author Type: ? Type: Progress Notes Filed: 11/10/2023 12:39 Note Text: Nomad# [id number] +gps Date shipped out 10/14 SENT EXPRESS FEDEX - [employer] EXPRESS RETURN Tracking Mailout: [id number] Tracking Return: [id number] [facility] 10-14-2023 Note HNO ID: [id number] Author: VERO SEGUNDO III, PhD Service: ? Author Type: Physician Type: Progress Notes Filed: 11/10/2023 12:39 Note Text: October 14, 2023 Standing PSG Orders signed in the last 90 days None Future PSG Orders signed in the last 90 days Ordered Auth. provider HOME SLEEP APNEA TEST (HSAT) [[id number]] 10/02/23 Rachel Mcmillan APRN.HIM ANALYST Assoc. diagnoses: Class 2 severe obesity with [...] No CONSULT TO SLEEP MEDICINE - ADULT [[id number]] 10/02/23 Rachel Mcmillan APRN.HIM ANALYST Assoc. diagnoses: Class 2 severe obesity with serious comorbidity and body mass index (BMI) of 35.0 to 35.9 in adult, unspecified obesity type (HCC) [E66.01, Z68.35] Q: Does consulting provider have [facility] [employer] access?: A: Yes All Prior Sleep Studies [...] Special instructions: None-follow laboratory protocol Katiana Hodgsonalan [facility] Staff Note: I have read the above protocol, edited as needed, and agree to the plan. Vero Segundo III, PhD 8:05 PM, 10/14/2023 [facility] 10-14-2023 Note HNO ID: [id number] Author: ?, ?, ? Service: ? Author Type: ? Type: Progress Notes Filed: 11/10/2023 12:39 Note Text: October 14, 2023 An order has been received for Home Sleep Apnea Test (HSAT) from Rachel Gracia APRN.lucien LANDEROS. [facility] Staff. Visit prep complete. Comments :No The sleep study is scheduled for 10/18. Insurance: Payor: MMO / Plan: MMO SUPERMED PPO / Product Type: PPO / Payer/Plan Subscr Sex Relation Sub. Ins. ID Effective Group Num 1. MMO - MMO SUP* ANGELIQUE WYNNE 1970 Female Self [id number] 11/30/18 [id number] [address] Anali Polanco [facility] 10-06-2023 Note HNO ID: [id number] Author: RACHEL ESCALANTE PSYD Service: ? Author Type: Psychologist Type: Progress Notes Filed: 10/08/2023 08:53 Note Text: [facility] EVALUATION DATE OF SERVICE: 10/07/2023 TIME OF SERVICE: 8:30AM to 9:36AM COST CENTER: [facility] CPT CODE: - 47748 Brief Emotional/Behavioral Assessment with scoring/documentation [id number] Virtual Psych Diagnostic Eval BILLING CODE: JAMAL ELIZALDE MAIN Fink BMI Surgical Pathway Visit type: Psychology Visit SESSION #: 1 The patient signed the Informed Consent for Psychological Evaluation AND Care Form via IMN (see consent dated 09/30/23), and the [facility] health care insurance benefits, fees for service, emergency procedures, and the limits of confidentiality that may pertain with any given case were discussed with the patient. The patient was given a copy of the consent form via IMN. I have communicated my name and active licensure. The patient's identity and physical location were verified at the time of this visit. Either the patient or their legal termite control service representative has been informed of the risks [...] Time of Virtual Visit: Pt work at [address] [place] [address] Emergency Contact: Chuck Wynne (Spouse) at [phone] IDENTIFYING INFORMATION Ms. Angelique Wynne is a 53 year old female. She was referred by Dr. Ansari. Ms. Wynne is seeking unsure surgery (leaning towards gastric bypass) for Class II obesity. COLLATERAL PARTIES PRESENT: none. MOTIVATION FOR SURGERY / UNDERSTANDING OF PROCEDURE / EXPECTATIONS: Ms. Wynne notes she is motivated for surgery by reducing medications and improving quality of life (prior to care home). The patient has a fair to good understanding of the surgery, risks, and benefits. She has talked with other people who have undergone the procedure (several friends, coworker). Specific areas of understanding that should be addressed include nutrition after surgery and risks associated with surgery. The patient has not attended a weight loss surgery support group but is watching patients on [employer]. The patient initially denied any specific weight [...] Control, Normal soln (more content not included)... [facility] 10-02-2023 History of Presen t illness [...] visit. Either the patient or their legal termite control service representative has been informed of the risks [...] NO ; CPAP NO Quality:poor, Few awakenings Custodial Worker Work? NO STOP BANG Criteria: Snoring Hypertension [...] ALLERGIES Allergen Reactions Oxaliplatin Anaphylaxis Went to [facility] ER 02/08/08 PAST SURGICAL HISTORY Procedure Laterality [...] of a mobility device Psychiatric: negative Endocrine: +[id number] Neuro: No history of headaches, syncope, paralysis, [...] which included preparing to see the patient, [id number] patient care, completing clinical documentation, obtaining and/or reviewing separately obtained history, performing a medically appropriate examination, counseling and educating the patient/family/caregiver, ordering medications, tests, or procedures, and independently interpreting results (not separately reported). Rachel Mcmillan APRN.CNP documented in this encounter [facility] 10-02-2023 Note HNO ID: [id number] Author: RACHEL MCMILLAN APRN.CNP Service: ? Author [...] visit. Either the patient or their legal termite control service representative has been informed of the risks [...] Obesity Treatments: Self directed exercise and dieting Bottle dieting Weight Watchers Slim Fast shakes Previous [...] NO ; CPAP NO Quality:poor, Few awakenings Custodial Worker Work? NO STOP BANG Criteria: Snoring Hypertension [...] ALLERGIES Allergen Reactions Oxaliplatin Anaphylaxis Went to [facility] ER 02/08/08 PAST SURGICAL HISTORY Procedure Laterality [...] Heart Father dec (more content not included)... [facility] 09-08-2023 Miscellaneous Notes September 09, 2023 PID: [id number] Angelique Wynne [address] [place] [address] Dear Ms. Wynne, We are pleased to [...] report will be kept on file at [facility] as part of your permanent medical record and are available for your continuing care. Thank you for allowing us to help in meeting your health care needs. Sincerely, Dr. Patterson Interpreting Radiologist [facility] (Normal over 40) documented in this encounter [facility] 09-05-2023 History of Presen t illness Narrative [...] PATIENT PRESENTS WITH AN IMPLANTABLE OR ATTACHED POWER GENERATION TECHNICIAN: No RADIOLOGY DEPARTMENT: Mammography PERIPHERAL IV DATA: Not applicable SIGNED BY: RT Jazmin(R) September 05, 2023 9:32 AM documented in this encounter [facility] 09-05-2023 Note HNO ID: [id number] Author: PUJA ARCHULETA RT(Mallika) Service: Radiology Author Type: Rope Walker Type: Progress Notes Filed: 09/05/2023 09:32 Note [...] PATIENT PRESENTS WITH AN IMPLANTABLE OR ATTACHED POWER GENERATION TECHNICIAN: No RADIOLOGY DEPARTMENT: Mammography PERIPHERAL IV DATA: Not applicable SIGNED BY: RT Jazmin(R) September 05, 2023 9:32 AM [facility] 08-13-2023 Miscellaneous Notes Patient has been identified by name and date of : Yes Requested Prescriptions Pending Prescriptions Disp Refills lisinopril (ZESTRIL) 20 mg tablet 90 tablet 1 Sig: Take 1 tablet by mouth once daily. RX INSTRUCTIONS: Patient aware RX will be sent to pharmacy. No need to notify patient. PARUL 06/13/23 Scheduled 12/05/23 Taty Walker LPN documented in this encounter [facility] 06-13-2023 Note HNO ID: [id number] Author: LUIS STALEY MD Service: ? Author [...] ALLERGIES Allergen Reactions Oxaliplatin Anaphylaxis Went to [facility] ER 02/08/08 PAST MEDICAL HISTORY Diagnosis Date [...] deformities, ulcers, callu (more content not included)... [facility] 02-07-2023 Miscellaneous Notes Last office visit: 12/13/22 F/u scheduled: 06/13/23 Merle Fuentes Ma documented in this encounter [facility] 12-13-2022 History of Presen t illness Narrative [...] Abs Lymph 1.00 - 4.00 k/uL 2.74 Webb% % 5.5 Abs Webb <0.87 k/uL 0.56 Eosin% % 1.8 Abs [...] ALLERGIES Allergen Reactions Oxaliplatin Anaphylaxis Went to [facility] ER 02/08/08 PAST MEDICAL HISTORY Diagnosis Date [...] Luis Staley MD documented in this encounter [facility] 08-08-2022 Miscellaneous Notes Patient has been identified by name and date of : Yes Requested Prescriptions Pending Prescriptions Disp Refills lisinopril (ZESTRIL) 20 mg tablet 90 tablet 1 Sig: Take 1 tablet by mouth once daily. PARUL 06/17/22 RX INSTRUCTIONS: Patient aware RX will be sent to pharmacy. No need to notify patient. Carola Green Ma documented in this encounter [facility] 06-17-2022 History of Presen t illness Narrative Radiology Service Progress Note PATIENT NAME: Angelique Wynne DATE OF SERVICE: June 17, 2022 [...] 2022 9:27 AM documented in this encounter [facility] 12-19-2021 History of Presen t illness Narrative [...] ALLERGIES Allergen Reactions Oxaliplatin Anaphylaxis Went to [facility] ER 02/08/08 PAST MEDICAL HISTORY Diagnosis Date [...] months and prn. documented in this encounter [facility] 12-21-2010 History of Past i llness Narrative [...] of this encounter (statuses as of 12/13/2022) [facility] History of Past illness Narrative* Problem Noted [...] of this encounter (statuses as of 02/08/2023) [facility] History of Past illness Narrative* Problem Noted [...] of this encounter (statuses as of 04/06/2023) [facility] History of Past illness Narrative* Problem Noted [...] of this encounter (statuses as of 08/13/2023) [facility] History of Past illness Narrative* Problem Noted [...] of this encounter (statuses as of 09/06/2023) [facility] History of Past illness Narrative* Problem Noted [...] of this encounter (statuses as of 09/10/2023) [facility] History of Past illness Narrative* Problem Noted Date Resolved Date Dysmetabolic syndrome 10/03/2010 11/03/2013 Unspecified vitamin D deficiency 07/09/2010 12/18/2020 Personal history of malignan t neoplasm of rectum, rectosigmoid junction, and anus 08/15/2008 12/18/2020 Blood in stool 08/10/2007 12/18/2020 Sebaceous cyst 03/13/2007 12/18/2020 documented as of this encounter (statuses as of 12/03/2021) [facility] History of Past illness Narrative* Problem Noted Date Resolved Date Dysmetabolic syndrome 10/03/2010 11/03/2013 Unspecified vitamin D deficiency 07/09/2010 12/18/2020 Personal history of malignan t neoplasm of rectum, rectosigmoid junction, and anus 08/15/2008 12/18/2020 Blood in stool 08/10/2007 12/18/2020 Sebaceous cyst 03/13/2007 12/18/2020 documented as of this encounter (statuses as of 12/19/2021) [facility] History of Past illness Narrative* Problem Noted Date Resolved Date Dysmetabolic syndrome 10/03/2010 11/03/2013 Unspecified vitamin D deficiency 07/09/2010 12/18/2020 Personal history of malignan t neoplasm of rectum, rectosigmoid junction, and anus 08/15/2008 12/18/2020 Blood in stool 08/10/2007 12/18/2020 Sebaceous cyst 03/13/2007 12/18/2020 documented as of this encounter (statuses as of 12/20/2021) [facility] History of Past illness Narrative* Problem Noted Date Resolved Date Dysmetabolic syndrome 10/03/2010 11/03/2013 Unspecified vitamin D deficiency 07/09/2010 12/18/2020 Personal history of malignan t neoplasm of rectum, rectosigmoid junction, and anus 08/15/2008 12/18/2020 Blood in stool 08/10/2007 12/18/2020 Sebaceous cyst 03/13/2007 12/18/2020 documented as of this encounter (statuses as of 08/08/2022) [facility] note* Diagnosis Encounter for screening mammogram for breast cancer documented in this encounter [facility] note* Diagnosis Essential hypertension- Primary Unspecified essential hypertension Diabetes mellitus without complication (HCC) Type II or unspecified type diabetes mellitus without mention of complication, not stated as uncontrolled Mixed hyperlipidemia Malignant neoplasm of colon, unspecified part of colon (HCC) documented in this encounter [facility] note* Diagnosis Diabetes mellitus without complication (HCC) Type II or unspecified type diabetes mellitus without mention of complication, not stated as uncontrolled documented in this encounter [facility] note* Diagnosis Essential hypertension Unspecified essential hypertension documented in this encounter [facility] note* Diagnosis Essential hypertension- Primary Unspecified essential [...] 35-39.9 Obesity, unspecified documented in this encounter [facility] note* Diagnosis Essential hypertension Unspecified essential hypertension documented in this encounter [facility] note* Diagnosis Encounter for screening mammogram for breast cancer documented in this encounter [facility] note* Diagnosis Essential hypertension Unspecified essential hypertension documented in this encounter [facility] note* Diagnosis Screening breast examination Breast screening, unspecified documented in this encounter [facility] note* Diagnosis Class 2 severe obesity with serious comorbidity and body mass index (BMI) of 35.0 to 35.9 in adult, unspecified obesity type (HCC)- Primary documented in this encounter [facility] note* Diagnosis Class 2 severe obesity with serious comorbidity and body mass index (BMI) of 35.0 to 35.9 in adult, unspecified obesity type (HCC) documented in this encounter [facility] note* Diagnosis Class 2 severe obesity with serious comorbidity and body mass index (BMI) of 35.0 to 35.9 in adult, unspecified obesity type (HCC) documented in this encounter [facility] note* Diagnosis Class 2 severe obesity with serious comorbidity and body mass index (BMI) of 35.0 to 35.9 in adult, unspecified obesity type (HCC) documented in this encounter [facility] note* Diagnosis Class 2 severe obesity with serious comorbidity and body mass index (BMI) of 35.0 to 35.9 in adult, unspecified obesity type (HCC)- Primary documented in this encounter [facility] note* Diagnosis Diabetes mellitus without complication (HCC)- Primary Type II or unspecified type diabetes mellitus without mention of complication, not stated as uncontrolled Obesity, Class II, BMI 35-39.9 Obesity, unspecified Dietary counseling and surveillance Dietary surveillance and counseling documented in this encounter [facility] note* Diagnosis Obesity, Class II, BMI 35-39.9- Primary Obesity, unspecified Class 2 severe obesity with serious comorbidity and body mass index (BMI) of 35.0 to 35.9 in adult, unspecified obesity type (HCC) documented in this encounter [facility] note* Diagnosis Personal history of rectal cancer- Primary Personal history of malignant neoplasm of rectum, rectosigmoid junction, and anus documented in this encounter [facility] note* Diagnosis Obesity, Class II, BMI 35-39.9- Primary Obesity, unspecified Dietary counseling and surveillance Dietary surveillance and counseling documented in this encounter [facility] note* Diagnosis Elevated alkaline phosphatase level- Primary Other nonspecific abnormal serum enzyme levels documented in this encounter [facility] note* Diagnosis Mixed hyperlipidemia- Primary Essential hypertension [...] junction, and anus documented in this encounter [facility] note* Diagnosis JANA (obstructive sleep apnea)- Primary Obstructive sleep apnea (adult) (pediatric) Class 2 severe obesity with serious comorbidity and body mass index (BMI) of 35.0 to 35.9 in adult, unspecified obesity type (HCC) [facility] [place] [facility] Diagnosis Obesity, Class II, BMI 35-39.9- Primary Obesity, unspecified documented in this encounter [facility] note* Diagnosis Mixed hyperlipidemia Essential hypertension Unspecified essential hypertension documented in this encounter [facility] for referral (narrative)* Diagnostic Procedure Only (Routine) - Pending Review Specialty Diagnoses / Procedures Referred By Lilliam man Referred To Contact [facility] Diagnoses Encounter for screening mammogram for breast cancer Procedures GUICHO SCREENING SCREENING MAMMOGRAPHY BI 2-VIEW BREAST INC Luis Saenz MD [address] [place] [address] [facility] [place] [address] Referral ID Status Reason Start Date Expiration Date Visits Requested Visits Authorized [id number] Pending Review Auto-Generat ed Referral 11/28/2021 12/28/2022 1 1 [facility] for referral (narrative)* Diagnostic Procedure Only (Routine) - Closed Specialty Diagnoses / Procedures Referred By Lilliam man Referred To Contact [facility] Diagnoses Encounter for screening mammogram for breast cancer Procedures GUICHO SCREENING SCREENING MAMMOGRAPHY BI 2-VIEW BREAST INC Luis Saenz MD [address] [place] [address] [facility] [address] [place] [address] Referral ID Status Reason Start Date Expiration Date V isits Requested Visits Authorized [id number] Closed Auto-Generate d Referral 11/28/2021 12/28/2022 1 1 [facility] for referral (narrative)* Outpatient Procedure (Routine) - Authorized Specialty Diagnoses / Procedures Referred By Lilliam man Referred To Contact [facility] Diagnoses Class 2 severe obesity with serious comorbidity and body mass index (BMI) of 35.0 to 35.9 in adult, unspecified obesity type (HCC) Procedures EGD DIAGNOSTIC ESOPHAGOGASTRODUODENOSC OPY TRANSORAL DIAGNOSTIC Ansari, [place] [address] [address] [address] [facility] [place] [address] [place] [address] Referral ID Status Reason Start Date Expiration Date Visits Requested Visits Authorized [id number] Authorized Auto-Generat ed Referral 10/21/2023 10/19/2024 1 1 T [facility] for referral (narrative)* Outpatient Procedure (Routine) - Closed Specialty Diagnoses / Procedures [facility] Diagnoses Class 2 severe obesity with serious comorbidity and body mass index (BMI) of 35.0 to 35.9 in adult, unspecified obesity type (HCC) Procedures EGD DIAGNOSTIC ESOPHAGOGASTRODUODENOSC OPY TRANS[place] [address] [facility] Klarissa [address] [address] [facility] [place] [address] [place] [address] Referral ID Status Reason Start Date Expiration Date V isits Requested Visits Authorized [id number] Closed Auto-Generate d Referral 10/21/2023 10/19/2024 1 1 T [facility] for visit Narrative* Diagnostic Procedure Only (Routine) - Closed Specialty Diagnoses / Procedures Referred By Contac t Referred To Contact [facility] Diagnoses Encounter for screening mammogram for breast cancer Procedures GUICHO SCREENING SCREENING MAMMOGRAPHY BI 2-VIEW BREAST INC CAD Luis Staley MD [address] [place] [address] [facility] [address] [place] [address] Referral ID Status Reason Start Date Expiration Date V isits Requested Visits Authorized [id number] Closed Auto-Generate d Referral 11/28/2021 12/28/2022 1 1 [facility] for visit Narrative* Diagnostic Procedure Only (Routine) - Closed Specialty Diagnoses / Procedures [facility] Ref[facility] To Contact [facility] Diagnoses Screening breast examination Procedures GUICHO SCREENING SCREENING MAMMOGRAPHY BI 2-VIEW BREAST INC CAD Luis Staley MD [address] [place] [address] [facility] [address] [place] [address] Referral ID Status Reason Start Date Expiration Date V isits Requested Visits Authorized [id number] Closed Auto-Generate d Referral 06/13/2023 07/12/2024 [address] [facility] Outpatient Procedure (Routine) - Closed Specialty Diagnoses / Procedures [facility] Diagnoses Class 2 severe obesity with serious comorbidity and body mass index (BMI) of 35.0 to 35.9 in adult, unspecified obesity type (HCC) Procedures EGD DIAGNOSTIC ESOPHAGOGASTRODUODENOSC OPY TRANS[place] [address] [address] [place] [address] [facility] [place] [address] [place] [address] Referral ID Status Reason Start Date Expiration Date V isits Requested Visits Authorized [id number] Closed Auto-Generate d Referral 10/21/2023 10/19/2024 [address] [facility] Advance Directives Documents on File Type Date Recorded Patient Blasting Entryman Expl anation Advance Directive(s) Advance Directive(s) 01/06/2020 6:46 AM Advance Directive(s) 12/28/2019 2:58 PM Documents on File Type Date Recorded Patient Blasting Entryman Expl anation Advance Directive(s) Advance Directive(s) 01/06/2020 6:46 AM Advance Directive(s) 12/28/2019 2:58 PM Reason for Referral Specialty Diagnoses / Procedures Referred By Contac t Referred To Contact Diagnoses Class 2 severe obesity with serious comorbidity and body mass index (BMI) of 35.0 to 35.9 in adult, unspecified obesity type (HCC) Procedures CONSULT TO SLEEP MEDICINE - ADULT OFFICE/OUTPATIENT [facility] HIGH MDM 60 MINUTES Rachel Mcmillan APRN.HIM ANALYST [address] [place] [address] Referral ID Status Reason Start Date Expiration Date Visits Requested Visits Authorized [id number] Authorized PCP Requested Referral 10/02/2023 12/31/2023 1 1 Specialty Diagnoses / Procedures Referred By Contac t Referred To Contact [facility] Diagnoses Class 2 severe obesity with serious comorbidity and body mass index (BMI) of 35.0 to 35.9 in adult, unspecified obesity type (HCC) Procedures HOME SLEEP APNEA TEST (HSAT) SLEEP STD AIRFLOW HRT RATE&O2 SAT EFFORT UNATT Rachel Mcmillan, RECOVERY ROOM RN.HIM ANALYST [id number] [place] [address] Referral ID Status Reason Start Date Expiration Date Visits Requested Visits Authorized [id number] Authorized Auto-Generat ed Referral 10/02/2023 10/01/2024 1 1 Specialty Diagnoses / Procedures Referred By Contac t Referred To Contact [facility] Diagnoses Class 2 severe obesity with serious comorbidity and body mass index (BMI) of 35.0 to 35.9 in adult, unspecified obesity type (HCC) Procedures US ABD RIGHT UPPER QUADRANT US ABDOMINAL REAL TIME W/IMAGE LIMITED Rachel Mcmillan, RECOVERY ROOM RN.HIM ANALYST [address] [phone] [facility] [place] [address] Referral ID Status Reason Start Date Expiration Date Visits Requested Visits Authorized [id number] Authorized Auto-Generat ed Referral 10/02/2023 10/31/2024 1 1 Specialty Diagnoses / Procedures Referred By Contac t Referred To [facility] Diagnoses Class 2 severe obesity with serious comorbidity and body mass index (BMI) of 35.0 to 35.9 in adult, unspecified obesity type (HCC) Procedures ECG COMPLETE ECG ROUTINE ECG W/LEAST 12 LDS W/I&R Rachel Mcmillan, RECOVERY ROOM RN.HIM ANALYST [address] [id number] [facility] [place] [address] Referral ID Status Reason Start Date Expiration Date Visits Requested Visits Authorized [id number] Authorized Auto-Generat ed Referral 10/02/2023 10/01/2024 1 [...] or prosecute any alcohol or drug abuse patient.[facility] HospitalIn the event this information is protected by the Federal Confidentiality of Alcohol and Drug Abuse Patient Records regulations: The Federal rules restrict any use of the information to criminally investigate or prosecute any alcohol or drug abuse patient.[facility] HospitalIn the event this information is protected by the Federal Confidentiality of Alcohol and Drug Abuse Patient Records regulations: The Federal rules restrict any use of the information to criminally investigate or prosecute any alcohol or drug abuse patient.[facility] HospitalIn the event this information is protected by the Federal Confidentiality of Alcohol and Drug Abuse Patient Records regulations: The Federal rules restrict any use of the information to criminally investigate or prosecute any alcohol or drug abuse patient.[facility] HospitalIn the event this information is protected by the Federal Confidentiality of Alcohol and Drug Abuse Patient Records regulations: The Federal rules restrict any use of the information to criminally investigate or prosecute any alcohol or drug abuse patient.[facility] HospitalIn the event this information is protected by the Federal Confidentiality of Alcohol and Drug Abuse Patient Records regulations: The Federal rules restrict any use of the information to criminally investigate or prosecute any alcohol or drug abuse patient.[facility] HospitalIn the event this information is protected by the Federal Confidentiality of Alcohol and Drug Abuse Patient Records regulations: The Federal rules restrict any use of the information to criminally investigate or prosecute any alcohol or drug abuse patient.[facility] HospitalIn the event this information is protected by the Federal Confidentiality of Alcohol and Drug Abuse Patient Records regulations: The Federal rules restrict any use of the information to criminally investigate or prosecute any alcohol or drug abuse patient.[facility] HospitalIn the event this information is protected by the Federal Confidentiality of Alcohol and Drug Abuse Patient Records regulations: The Federal rules restrict any use of the information to criminally investigate or prosecute any alcohol or drug abuse patient.[facility] HospitalIn the event this information is protected by the Federal Confidentiality of Alcohol and Drug Abuse Patient Records regulations: The Federal rules restrict any use of the information to criminally investigate or prosecute any alcohol or drug abuse patient.[facility] HospitalIn the event this information is protected by the Federal Confidentiality of Alcohol and Drug Abuse Patient Records regulations: The Federal rules restrict any use of the information to criminally investigate or prosecute any alcohol or drug abuse patient.[facility] HospitalIn the event this information is protected by the Federal Confidentiality of Alcohol and Drug Abuse Patient Records regulations: The Federal rules restrict any use of the information to criminally investigate or prosecute any alcohol or drug abuse patient.[facility] HospitalIn the event this information is protected by the Federal Confidentiality of Alcohol and Drug Abuse Patient Records regulations: The Federal rules restrict any use of the information to criminally investigate or prosecute any alcohol or drug abuse patient.[facility] HospitalIn the event this information is protected by the Federal Confidentiality of Alcohol and Drug Abuse Patient Records regulations: The Federal rules restrict any use of the information to criminally investigate or prosecute any alcohol or drug abuse patient.[facility] HospitalIn the event this information is protected by the Federal Confidentiality of Alcohol and Drug Abuse Patient Records regulations: The Federal rules restrict any use of the information to criminally investigate or prosecute any alcohol or drug abuse patient.[facility] HospitalIn the event this information is protected by the Federal Confidentiality of Alcohol and Drug Abuse Patient Records regulations: The Federal rules restrict any use of the information to criminally investigate or prosecute any alcohol or drug abuse patient.[facility] HospitalIn the event this information is protected by the Federal Confidentiality of Alcohol and Drug Abuse Patient Records regulations: The Federal rules restrict any use of the information to criminally investigate or prosecute any alcohol or drug abuse patient.[facility] HospitalIn the event this information is protected by the Federal Confidentiality of Alcohol and Drug Abuse Patient Records regulations: The Federal rules restrict any use of the information to criminally investigate or prosecute any alcohol or drug abuse patient.[facility] HospitalIn the event this information is protected by the Federal Confidentiality of Alcohol and Drug Abuse Patient Records regulations: The Federal rules restrict any use of the information to criminally investigate or prosecute any alcohol or drug abuse patient.[facility] HospitalIn the event this information is protected by the Federal Confidentiality of Alcohol and Drug Abuse Patient Records regulations: The Federal rules restrict any use of the information to criminally investigate or prosecute any alcohol or drug abuse patient.[facility] HospitalIn the event this information is protected by the Federal Confidentiality of Alcohol and Drug Abuse Patient Records regulations: The Federal rules restrict any use of the information to criminally investigate or prosecute any alcohol or drug abuse patient.[facility] HospitalIn the event this information is protected by the Federal Confidentiality of Alcohol and Drug Abuse Patient Records regulations: The Federal rules restrict any use of the information to criminally investigate or prosecute any alcohol or drug abuse patient.[facility] HospitalIn the event this information is protected by the Federal Confidentiality of Alcohol and Drug Abuse Patient Records regulations: The Federal rules restrict any use of the information to criminally investigate or prosecute any alcohol or drug abuse patient.[facility] HospitalIn the event this information is protected by the Federal Confidentiality of Alcohol and Drug Abuse Patient Records regulations: The Federal rules restrict any use of the information to criminally investigate or prosecute any alcohol or drug abuse patient.[facility] HospitalIn the event this information is protected by the Federal Confidentiality of Alcohol and Drug Abuse Patient Records regulations: The Federal rules restrict any use of the information to criminally investigate or prosecute any alcohol or drug abuse patient.[facility] HospitalIn the event this information is protected by the Federal Confidentiality of Alcohol and Drug Abuse Patient Records regulations: The Federal rules restrict any use of the information to criminally investigate or prosecute any alcohol or drug abuse patient.[facility] HospitalIn the event this information is protected by the Federal Confidentiality of Alcohol and Drug Abuse Patient Records regulations: The Federal rules restrict any use of the information to criminally investigate or prosecute any alcohol or drug abuse patient.[facility] Care Teams (unrecognized sec tion and content) Patient Access Director Relationship Specialty Start Date End Date Luis Staley MD [address], [place] [address] PCP - General Family Practice 08/27/13 Patient Access Director Relationship Specialty Start Date End Date Luis Staley MD [address] [place] [address] PCP - General Family Practice 08/27/13 Patient Access Director Relationship Specialty Start Date End Date Luis Staley MD [address] [place] [address] PCP - General Family Practice 08/27/13 Patient Access Director Relationship Specialty Start Date End Date Luis Staley MD [address] [place] [address] PCP - General Family Medicine 08/27/13 Patient Access Director Relationship Specialty Start Date End Date Luis Staley MD [address] [place] [address] PCP - General Family Medicine 08/27/13 Patient Access Director Relationship Specialty Start Date End Date Luis Staley MD [address] [place] [address] PCP - General Family Medicine 08/27/13 Patient Access Director Relationship Specialty Start Date End Date Luis Staley MD [address] [place] [address] PCP - General Family Medicine 08/27/13 Patient Access Director Relationship Specialty Start Date End Date Luis Staley MD [address], [place] [address]20[address] PCP - General Family Medicine 08/27/13 Patient Access Director Relationship Specialty Start Date End Date Luis Staley MD [address] [place] [address] PCP - General Family Medicine 08/27/13 Patient Access Director Relationship Specialty Start Date End Date Luis Staley MD [address] [place] [address] PCP - General Family Medicine 08/27/13 Patient Access Director Relationship Specialty Start Date End Date Luis Staley MD [address] [place] [address] PCP - General Family Medicine 08/27/13 Patient Access Director Relationship Specialty Start Date End Date Luis Staley MD [address] [place] [address] PCP - General Family Medicine 08/27/13 Patient Access Director Relationship Specialty Start Date End Date Luis Staley MD [address] [place] [address] PCP - General Family Medicine 08/27/13 Patient Access Director Relationship Specialty Start Date End Date Luis Staley MD [address] [place] [address] PCP - General Family Medicine 08/27/13 Patient Access Director Relationship Specialty Start Date End Date Luis Staley MD [address], [place] [address] PCP - General Family Medicine 08/27/13 Patient Access Director Relationship Specialty Start Date End Date Luis Staley MD [address] [place] [address] PCP - General Family Medicine 08/27/13 Patient Access Director Relationship Specialty Start Date End Date Luis Staley MD [address], [place] [address] PCP - General Family Medicine 08/27/13 Patient Access Director Relationship Specialty Start Date End Date Luis Staley MD [address], [place] [address] PCP - General Family Medicine 08/27/13 Patient Access Director Relationship Specialty Start Date End Date Luis Staley MD [address], [place] [address] PCP - General Family Medicine 08/27/13 Patient Access Director Relationship Specialty Start Date End Date Luis Staley MD [address], [place] [address] PCP - General Family Medicine 08/27/13 Reason [...] ECG W/LEAST 12 LDS W/I&R Rachel Mcmillan, LESLIE.HIM ANALYST [address] [place] [address] [facility] [place] [address] [place] [address] Referral ID Status Reason Start Date Expiration Date V isits Requested Visits Authorized [id number] Closed Auto-Generate d Referral 10/02/2023 10/01/2024 1 1 Reason Comments Radiology US Specialty Diagnoses / Procedures Referred By Contac t Referred To Contact [facility] Diagnoses Class 2 severe obesity with serious comorbidity and body mass index (BMI) of 35.0 to 35.9 in adult, unspecified obesity type (HCC) Procedures US ABD RIGHT UPPER QUADRANT US ABDOMINAL REAL TIME W/IMAGE LIMITED Rachel Mcmillan, RECOVERY ROOM RN.HIM ANALYST [address] [phone] [facility] [place] [address] Referral ID Status Reason Start Date Expiration Date V isits Requested Visits Authorized [id number] Closed Auto-Generate d Referral 10/02/2023 10/31/2024 1 [...] NEW HIGH MDM 60 MINUTES Rachel Mcmillan, RECOVERY ROOM RN.HIM ANALYST [address] [place] [phone] Referral ID Status Reason Start Date Expiration Date V isits Requested Visits Authorized [id number] Closed PCP Requested Referral 10/02/2023 12/31/2023 1 1 Reason Comments Insurance Authorization Reason Onset Date Comments Refill Request 02/04/2024 INFORMATION SOURCE (unrecogn ized section and content) DATE CREATED AUTHOR 02/14/2024 [facility] FOR RECORDS PERTAINING TO PATIENTS WHO [...] BE BASED ON THE PRIMARY CLINICAL RECORDS. [facility] provides no warranty or guarantee of the accuracy or completeness of information in this document.
[2024-03-20 02:03] LABS: Procalcitonin 0.06 ng/mL (0.00-0.09)
[2024-03-20] MEDS: Pantoprazole Sodium 40 MG in 0.9% Normal Saline (100mL MB+) 100 ML 330 MG IV ×3 (03:17→20:29)
[2024-03-20] MEDS: 0.9% Normal Saline (1000mL) 1,000 ML 100 ML IV (03:17)
[2024-03-20] MEDS: Piperacil/Tazobactam 3.375 GM in 0.9% Normal Saline (50mL MB+) 50 ML IV (03:23)
[2024-03-20 03:41] LABS: Bedside Glucose 204 mg/dL (74-106)
[2024-03-20] MEDS: Morphine 2 MG/ML Syringe 4 MG IV ×3 (05:49→20:28)
--- NOTE | 2024-03-20 06:54 | CON.PCM.SX_ITS ---
Assessment & Plan Assessment/Plan (1) Small bowel obstruction: PLAN: Plan Patient still having pain this morning as well as nausea. With CT findings discussed with patient would recommend surgery to take a look and see if there is an adhesion causing the partial small bowel obstructions patient states she is having some flatus. Discussed with patient would plan for a diagnostic laparoscopy, possible laparotomy, possible bowel resection discussed risk include not limited to bleeding, infection, need for further surgery, injury to another organ, hernia and anesthesia. Patient no further questions this time. Connie Hendrix M.D. Pager: [phone] [facility] [address] [place] [address], Outpatient Pavilion, [address] [place] [address] Office: [phone] HPI Consult Data Date of Consult: 03/20/24 HPI Narrative HPI Narrative: GEOFFREY TERRAZAS, is a 54 F who presents to the ER due to abdominal pain nausea and vomiting. Patient does have a history of rectal cancer 16 years ago underwent resection midline incision. Patient's last colonoscopy was 2 years ago negative per patient. Patient CT abdomen pelvis does show an area possible adhesion versus closed-loop with dilated bowel in the left abdomen with nondilated bowel prior and after. Patient no further vomiting overnight did require morphine due to abdominal pain. Patient states she is having flatus this morning. Patient denies any history of previous bowel obstruction. Patient's been having pain for 2 days with nausea and vomiting. Patient states last bowel movement was on Friday. Patient initially came in with white blood count of 19 currently is 12.8 patient is on Zosyn IV. [facility] Medical History Obesity Diabetes mellitus, type 2 HLD (hyperlipidemia) Hypertension Colorectal cancer Home Medications ?Medication ?Instructions ?Recorded ?Last Taken ?Type lisinopril 10 mg tablet 10 mg PO DAILY #30 tabs 04/29/17 03/18/24 Rx atorvastatin 40 mg tablet 40 mg PO QHS cholesterol 03/19/24 03/18/24 History semaglutide 0.25 mg or 0.5 mg (2 0.5 mg subcut QWEEK weight loss 03/19/24 03/15/24 History mg/3 mL) subcutaneous pen injector (Ozempic) Allergy/AdvReac Type Severity Reaction Status Date / Time oxaliplatin Allergy Anaphylaxis Verified 03/19/24 20:49 Family History (Updated 03/20/24 @ 01:[address] Shira Hernandez MD) Father Diabetes Hypertension ETOH abuse Family History adopted Surgical History History of colon resection Social History household members: spouse Smoking Status: Never smoker alcohol intake: never substance use type: does not use Physical Exam Const alert, oriented x3 and no apparent distress HEENT normocephalic and head/scalp atraumatic Resp normal respiratory effort Cardio regular rate GI soft to palpation; Negative for non-distended GI Narrative: Tender in the left abdomen, no peritoneal signs, midline incision well-healed Palpation: Negative for guarding Extremity no clubbing, cyanosis or edema Skin no rashes or lesions noted Neuro CN's II-XII intact bilaterally Psych mental status grossly normal Lab / Micro Data 03/20/24 07:05 03/19/24 23:05 Labs: Laboratory Results - last 24 hr 03/19/24 23:05: WBC 19.0 H, RBC 5.27, Hgb 14.9, Hct 43.9, MCV 83.3, MCH 28.3, MCHC 33.9, RDW Std Deviation 37.2, RDW Coeff of Prema 12.3, Plt Count 376, MPV 10.7, Immature Gran % (Auto) 0.900, Neut % (Auto) 84.6 H, Lymph % (Auto) 9.5 L, Ralls % (Auto) 4.7, Eos % (Auto) 0.0, Baso % (Auto) 0.3, Absolute Neuts (auto) 16.1 H, Absolute Lymphs (auto) 1.80, Nucleated RBC % 0, Sodium 136, Potassium 4.1, Chloride 99, Carbon Dioxide 28.0, Anion Gap 9, BUN 16, Creatinine 0.94, Estim Creat Clear Calc 64.02, Est GFR (MDRD) Af Amer 79, Est GFR (MDRD) Non-Af 66, BUN/Creatinine Ratio 17.1, Glucose 276 H, Calcium 10.0, Total Bilirubin 0.80, AST 17, ALT 28, Alkaline Phosphatase 85, Total Protein 7.7, Albumin 3.9, Globulin 3.8, Albumin/Globulin Ratio 1.0, Lipase 30 03/20/24 00:10: Urine Color Yellow, Urine Clarity Clear, Urine pH 6.5, Ur Specific [place] 1.010, Urine Protein 15 H, Urine Glucose (UA) Normal, Urine Ketones Negative, Urine Occult Blood Negative, Urine Nitrite Negative, Urine Bilirubin Negative, Urine Urobilinogen Normal, Ur Leukocyte Esterase 100 H, Urine RBC 0 SEEN, Urine WBC 0-5 SEEN, Ur Squamous Epith Cells 0 SEEN, Urine Bacteria 0 SEEN, Urine Mucus 0 SEEN 03/20/24 01:33: Procalcitonin 0.06 03/20/24 03:22: POC Glucose 204 H Imaging Radiology Impression Abdomen/Pelvis CT 03/19/24 22:22 IMPRESSION: Findings are consistent with a proximal small bowel obstruction located primarily within the left side of the abdomen suggesting closed-loop obstruction secondary either to adhesions or internal hernia. Electronically Signed: Grace Mitchell MD at 0:40 EDT Reading Location ID and State: [address] [place] [address] , Service support ,
--- NOTE | 2024-03-20 07:00 | RAD_ITS ---
HISTORY: Bowel obstruction. TECHNIQUE: XR Abdomen 1 View. COMPARISON: CT prior day. FINDINGS: BOWEL GAS PATTERN: Mildly dilated small bowel in the left lower quadrant. Scattered stool and air in the colon down to the level of the rectum. FREE AIR: Not assessed on supine view. CALCIFICATIONS: Vascular calcifications observed. BONES: Unremarkable. SOFT TISSUES: Residual contrast in the bladder. RAD/Abdomen Single View (Portable) IMPRESSION: Mildly dilated small bowel in the left abdomen, compatible with the history of bowel obstruction. Electronically Signed: Naila Foley MD at 9:24 EDT ,
[2024-03-20 07:22] LABS: Absolute Neutrophil Count 8.9 X10^3/uL (2.0-7.7); Basophil# 0.05 X10^3/uL; Basophil% 0.4 % (0-1); Eosinophil# 0.06 X10^3/uL; Eosinophils% 0.5 % (0-5); Hematocrit 37.8 % (37-47); Hemoglobin 12.5 g/dL (12.0-15.0); Lymphocyte % 23.5 % (19-41); Mean Corp Hgb Conc 33.1 g/dL (32-36); Mean Corpuscular Hgb 28.2 pg (27.0-32.0); Mean Corpuscular Volume 85.3 fL (81-99); Mean Platelet Vol. 10.4 fl (6.2-12.0); Monocyte# 0.74 X10^3/uL; Monocyte% 5.8 % (0-10); NRBC Flagged by Analyzer 0 % (0-5); Neutrophil # 8.88 X10^3/uL (2.7-7.7); Neutrophil % 69.4 % (47-70); Platelet Count 295 K/mm3 (150-450); RBC Distribution Width CV 12.4 % (11.6-14.6); RBC Distribution Width SD 38.5 fl (35.1-43.9); Red Blood Count 4.43 M/mm3 (4.2-5.4); White Blood Count 12.8 K/mm3 (4.4-11.0)
[2024-03-20 07:45] LABS: AST(SGOT) 11 U/L (15-37); Alanine Aminotransfer ALT/SGPT 23 U/L (13-56); Albumin, Serum 3.2 g/dL (3.2-5.0); Alkaline Phosphatase 64 U/L (45-117); Anion Gap 4 (5-15); BUN 15 mg/dL (7-18); BUN/Creat Ratio 16.1 RATIO (10-20); Calcium,Total 8.8 mg/dL (8.5-10.1); Chloride 107 mmol/L (98-107); Creatinine, Serum 0.93 mg/dL (0.55-1.02); EST Glomerular Filtration Rate 66 mL/min (>60); Est Glom Filt Rate - Afr Amer 80 mL/min (>60); Estimated Creatinine Clearance 64.64 ml/min; Globulin 3.1 g/dL (2.2-4.2); Glucose 181 mg/dL (74-106); Potassium 4.1 mmol/L (3.5-5.1); Protein, Total 6.3 g/dL (6.4-8.2); Sodium Level 139 mmol/L (136-145)
--- NOTE | 2024-03-20 08:26 | PRE.ANES_ITS ---
ASA Classification* ASA Classification ASA Classification: 3 and E Assessment & Plan Anesthesia* Anesthesia Assessment Anesthesia Assessment: Discussed sedation and/or anesthesia options, risks, benefits, and alternatives with patient/parents/legal guardian/POA. Questions invited. The patient/parents/legal guardian/POA seems to understand and agrees to proceed with anesthesia plan. Reviewed the physical assessment, medical history, allergy history and patient home medications list prior to surgery/procedure/anesthetic and documented any changes. Performed airway and anesthesia risk assessments. Anesthesia Type Anesthesia Type: General (see written pre anesthesia record for full assessment) Anesthesia Focused Assessment* Temperature: 98.2 F Pulse Rate: 88 Blood Pressure: 154/72 Respiratory Rate: 18 Pulse Ox: 96 Airway Assessment Mouth opens: >3 cm Mallampati Score: II Focused Labs Anesthesia Preop lab: CBC WBC 12.8 K/mm3 (4.4-11.0) H 03/20/24 07:05 RBC 4.43 M/mm3 (4.2-5.4) 03/20/24 07:05 Hgb 12.5 g/dL (12.0-15.0) 03/20/24 07:05 Hct 37.8 % (37-47) 03/20/24 07:05 Plt Count 295 K/mm3 (150-450) 03/20/24 07:05 CHEMISTRY Potassium 4.1 mmol/L (3.5-5.1) 03/20/24 07:05 Sodium 139 mmol/L (136-145) 03/20/24 07:05 BUN 15 mg/dL (7-18) 03/20/24 07:05 Creatinine 0.93 mg/dL (0.55-1.02) 03/20/24 07:05 Glucose 181 mg/dL (74-106) H 03/20/24 07:05 POC Glucose 204 mg/dL (74-106) H 03/20/24 03:22 COAG Pre-Assessment Diagnosis/Proposed Procedure Planned Operative Procedure(s): exp lap Anesthesia History 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 When Was Last Pacemaker Check QUESTION #4 FULL TEXT: You/Your Family Experience fever (hyperthermia) with Anesthesia Last Oral Intake Last Oral intake: Last Oral Intake NPO since Meds taken in AM with sips of water? Meds patient instructed to take am of surgery PONV PONV - needle board repairer: PONV - needle board repairer Female HX of Motion Sickness HX of N/V After Surgery Non-Smoker Duration of Surgery greater than 60 minutes Number of Risk Factors PONV Score Height & Weight Height & Weight: Anesthesia: Height & Weight Height 5 ft 03/20/24 02:06 Weight: 83.3 kg 03/20/24 02:06 Body Mass Index (BMI) 35.9 03/20/24 02:06 Respiratory Assessment Respiratory Assessment - needle board repairer: Respiratory Tract Infection Hx - needle board repairer Hx Respiratory Tract Infection STOP Sleep Apnea STOP Sleep Apnea - needle board repairer: STOP Sleep Apnea - needle board repairer Hx Hypertension Yes 03/20/24 02:09 Hx Sleep Apnea Yes 03/20/24 02:09 CPAP Yes 03/20/24 02:09 BIPAP No 03/20/24 02:09 Do you snore loudly (louder than talking or can be heard Do you often feel tired/ fatigued/ sleepy during daytime? Has anyone observed you stop breathing during sleep? STOP Results Positive 03/20/24 02:09 QUESTION #5 FULL TEXT : Do you snore loudly (louder than talking or can be heard through closed doors)? Tobacco Use History Tobacco Use History - needle board repairer: Tobacco Use History - needle board repairer Tobacco Use Smoking Status Never smoker 03/20/24 02:09 Hx Tobacco Use No 03/20/24 02:09 Years Smoking Packs Smoked per Day Smoking Cessation Date was within the last 15 years Hx Smoking Cessation Date Hx Smoking Cessation Counseling Hematologic Medial History Hematologic Hx - needle board repairer: Hematologic Medical Hx - dough scaler and mixer Hx of Blood Transfusion No 03/20/24 02:09 Hx of Transfusion in last 3 No 03/20/24 02:09 Months Date of Last Transfusion (if within last 3 months) Ever experience any problems No 03/20/24 02:09 with transfusion(s)? Specify any problems Hx of Preganancy in last 3 No 03/20/24 02:09 Months Nurse Filling Out Transfusion EYOUNG 03/20/24 02:09 & Questions: Date: 03/20/24 03/20/24 02:09 Time: 02:10 03/20/24 02:09 Patient unable to answer at this time (ie. confused, unrespo /Reproduction History /Reproductive History - needle board repairer: /Reproductive Hx- needle board repairer Hx Now Gestational Age (in weeks): EDC: Hx Hx Para Hx Section SAB Active Medications Active Medications: Current Medications Generic Name Dose Route Start Last Admin Trade Name Freq PRN Reason Stop Dose Admin Acetaminophen 650 mg 03/20/24 02:01 Acetaminophen 650 Mg Suppository RC Q4H PRN PRN Fever, pain 1-10 Albuterol Sulfate 2.5 mg 03/20/24 02:01 Albuterol 2.5 Mg/3 Ml Vial.Neb. INHALATION Q2H PRN PRN Dyspnea, wheezing Enoxaparin Sodium 40 mg 03/20/24 10:00 03/20/24 07:51 Enoxaparin 40 Mg/0.4 Ml Syringe SC Not Given DAILY MELVIN Glucagon 1 mg 03/20/24 02:01 Glucagon 1 Mg/Ml Syringe IM X1 PRN HYPOGLYCEMIA Protocol Hydralazine HCl 10 mg 03/20/24 02:01 Hydralazine 20 Mg/Ml Vial IV Q4H PRN PRN SBP > 160 Protocol Sodium Chloride 1,000 mls @ 100 mls/hr 03/20/24 02:01 03/20/24 03:17 IV 03/20/24 12:00 100 mls/hr .Q10H MELVIN Administration Protocol Dextrose 250 mls @ 0 mls/hr 03/20/24 02:01 Dextrose 10%-Water IV .Q0M PRN HYPOGLYCEMIA Protocol As Directed Piperacillin Sod/Tazobactam 50 mls @ 12.5 mls/hr 03/20/24 02:30 03/20/24 07:25 Sod 3.375 gm/ Sodium Chloride IV Infused Q8 MELVIN Infusion Pantoprazole Sodium 40 mg/ 110 mls @ 330 mls/hr 03/20/24 02:01 03/20/24 04:27 Sodium Chloride IV Infused Q12 MELVIN Infusion Sodium Chloride 500 mls @ 15 mls/hr 03/20/24 02:11 IV .[id number] PRN Saline Flush Sodium Chloride 500 mls @ 15 mls/hr 03/20/24 02:11 IV .[id number] PRN Additional IVPB Infusion Influenza Virus Vaccine 45 mcg 03/20/24 10:00 Flu Vacc (6mos Up)/Pf 45 Mcg/0.5 Ml Syringe IM 03/20/24 10:01 .ONCE ONE Insulin Human Lispro 0 unit 03/20/24 02:01 03/20/24 03:23 Insulin Lispro 100 Unit/Ml Insuln.Pen SC Not Given Q6H MELVIN Protocol Morphine Sulfate 4 mg 03/20/24 02:01 03/20/24 05:49 Morphine 2 Mg/Ml Syringe IV 4 mg Q3H PRN PRN Administration Pain Score 4-10 Ondansetron HCl 4 mg 03/20/24 02:01 03/20/24 05:49 Ondansetron 4 Mg/2 Ml Vial IV 4 mg Q8H PRN PRN Administration NAUSEA/VOMITING Prochlorperazine Edisylate 5 mg 03/20/24 02:01 Prochlorperazine 10 Mg/2 Ml Vial IV Q4H PRN PRN Breakthrough nausea/vomiting Sodium Chloride 10 - 40 ml 03/20/24 02:11 0.9% Saline Lock 10 Ml Syringe IV UD PRN SALINE FLUSH PFSH Medical History Obesity Diabetes mellitus, type 2 HLD (hyperlipidemia) Hypertension Colorectal cancer Home Medications ?Medication ?Instructions ?Recorded ?Last Taken ?Type lisinopril 10 mg tablet 10 mg PO DAILY #30 tabs 04/29/17 03/18/24 Rx atorvastatin 40 mg tablet 40 mg PO QHS cholesterol 03/19/24 03/18/24 History semaglutide 0.25 mg or 0.5 mg (2 0.5 mg subcut QWEEK weight loss 03/19/24 03/15/24 History mg/3 mL) subcutaneous pen injector (Ozempic) Allergy/AdvReac Type Severity Reaction Status Date / Time oxaliplatin Allergy Anaphylaxis Verified 03/19/24 20:49 Family History Father Diabetes Hypertension ETOH abuse Family History adopted Surgical History History of colon resection Social History household members: spouse Smoking Status: Never smoker alcohol intake: never substance use type: does not use Review of Systems (Anesthesia) ROS Narrative System reviewed and no additional complaints, except as documented.
--- NOTE | 2024-03-20 10:10 | CASEMGMT ---
RN CM into room for assessment, pt is off of the floor at this time. RN CM to check back for assessment.
--- NOTE | 2024-03-20 10:48 | OP.PCM_ITS ---
Report of Operation Date of Procedure: 03/20/24 Pre-Operative Diagnosis: Small bowel obstruction Post-Operative Diagnosis: Small bowel obstruction due to adhesions Surgery/Procedure Performed:: Laparoscopic extensive lysis of adhesion release of small bowel obstruction Surgeon: Connie Hendrix Type of Anesthesia: General/Supplemental Anesthesiologist: Willi Gordon Special Medications: Zosyn IV on the floor continuous Specimen's removed: None Estimated Blood Loss (mL): 10 cc Description of Procedure: Indications: this is a 54 year-old female who developed abdominal pain/nausea/vomiting and on workup was found to have small bowel obstruction likely due to adhesions due to previous surgery for rectal cancer 16 years ago. Description procedure: The patient was placed on operating table in supine position. A timeout was completed verifying correct patient, procedure, site, position and special equipment prior to beginning procedure. General Anesthesia was induced. The abdomen was prepped and draped in usual sterile fashion. An incision was made in the natural skin line in the epigastrium. The fascia was elevated and incised. The peritoneum was elevated and incised. Entry into the peritoneum was confirmed visually and no bowel was noted in the vicinity of the incision. Cowart trocar was placed. The abdomen was insufflated with carbon dioxide to a pressure of 12-15 mmHg. Patient tolerated insufflation well. The laparoscope was then inserted and abdomen inspected. No injuries from initial trocar placement were noted. Additional trochars were then inserted in the following locations 2 5 mm trochars left lateral abdomen. The abdomen was inspected and found to have adhesions to the midline as well as extensive small bowel adhesions in the left upper quadrant. The table is placed in reverse Trendelenburg position with the left side up. Midline adhesions were carefully taken down using scissors as well as Enseal to allow for additional 5 mm port placement in the inferior midline. The small bowel in the left upper quadrant was noted to have multiple areas of adhesions. Adhesions were able to be carefully lysed with laparoscopic scissors at the 2 areas of transition. Extensive lysis of adhesions for greater than an hour and a half was completed. The entirety of the small bowel was not ran due to multiple adhesions and risk of injury to additional bowel. 2 areas of transition appeared to be free allowing the bowel to fill distally/proximally. Secondary trochars removed under direct vision. No bleeding was noted the trocar sites. The laparoscope was withdrawn and epigastric trocar removed. The abdomen was allowed to collapse. The fascia of the 12 mm trocar was closed with a [id number] 0 Vicryl suture. The skin was closed with sutures of 4-0 Monocryl and Steri-Strips. LEAD RELAY TESTER assisted with closure. The patient was extubated. The patient tolerated procedure well and was taken to the postanesthesia care unit in stable condition. Complications none
[2024-03-20] MEDS: Bupivacaine Mpf 0.5% 30 ML VIAL (10:50)
--- NOTE | 2024-03-20 11:13 | PCM.POST.ANE ---
Anesthesia: Postop Eval I Current Vital Signs Temperature: 97.4 F Pulse Rate: 97 Blood Pressure: 131/56 Respiratory Rate: 16 Pulse Ox: 98 Assessment Airway patent: Yes Spontaneous unlabored respirations: Yes nausea: No Vomiting: No Anesthesia Complication: No Fluid Hydration Crystalloid volume administer (ml): 1,400 Total IV fluid infused: 1,400 Progress Note Anesthesia document: Postop Eval 1 completed: No
--- NOTE | 2024-03-20 11:15 | PCM.POSTANE2 ---
Anesthesia Postop Eval I Sum Postop Eval Completion status Anesthesia document: Postop Eval 1 completed: No Anesthesia Postop Eval I Summary Anesthesia Postop Eval I Summary: Anesthesia Postop Eval I: Assessment Summary Airway patent Yes 03/20/24 11:14 Spontaneous unlabored Yes 03/20/24 11:14 respirations Mental status nausea No 03/20/24 11:14 Vomiting No 03/20/24 11:14 Anesthesia Postop Eval I: Fluid Summary Crystalloid volume administer 1,400 03/20/24 11:14 (ml) Colloids volume administered ( ml) Blood Product volume administered (ml) Total IV fluid infused 1,400 03/20/24 11:14 Anesthesia Postop Eval I: Summary Notes Anesthesia Complication No 03/20/24 11:14 Anesthesia Complication Comment: Post-operative progress note Anesthesia: Postop Eval II Evaluation Mental status: Awake Pain Level: 0 nausea: No Vomiting: No
[2024-03-20 12:43] LABS: Bedside Glucose 268 mg/dL (74-106)
[2024-03-20] MEDS: Insulin Lispro 100 UNIT/ML INSULN.PEN SC (12:56)
[2024-03-20 13:10] LABS: Bedside Glucose 257 mg/dL (74-106)
--- NOTE | 2024-03-20 15:15 | CASEMGMT ---
CARIDAD GREEN Assessment: Face to Face with pt for initial transition planning/care coordination assessment. CARIDAD GREEN introduced self and role at [facility], pt voices understanding and consents to assessment. Pt is A&O x4 and answers all questions appropriately at this time. Pt lying in bed in no distress. Care providers, pharmacy, and demographics verified/updated. Admitting Dx: bowel obstruction Strata Score: NA PCP:Andreina Specialists:Denies Preferred Pharmacy:[facility] Insurance: MMO Prescription Benefit: yes LNOK: Gregorio Wynne, ; Piper Wynne, dtr Living Arrangements: Pt lives with , dtr and 2 sons in a two story home with [facility]. Pt reports she is I in ADLs and denies concerns at home. Transportation: Pt drives self and denies concerns with transportation. DME:CPAP, BGM with sufficient supply of strips and lancets HHC/SNF: Denies hx of Pt states no concerns with going home at time of dc. Pt had surgery today. She denies any homegoing needs. Pt states no further concerns/needs. CM to follow. Advised pt to ask CM if any further question/concerns/needs arise, voices understanding. Pt Goal: Home Plan: Home Bruno MCLEAN CM
--- NOTE | 2024-03-20 16:35 | PCM.HOSP.N ---
Hospitalist Note Patient was seen and examined today, she went to surgery and adhesions were found, she underwent a laparoscopic extensive lysis of adhesions with release of small bowel obstruction. Patient denies any medical issues although she is taking atorvastatin and lisinopril as an outpatient.
[2024-03-20] MEDS: 0.9% Saline Lock 10 ML Syringe IV (20:29)
[2024-03-20 20:44] LABS: Bedside Glucose 140 mg/dL (74-106)
[2024-03-21] VITALS (7 sets, daily range): BP systolic 124–142; BP diastolic 59–70; PULSE 84–97; RESP 14–16; TEMP 36.2–36.8; O2SAT 94–96; BMI 38.0
[2024-03-21] MEDS: Morphine 2 MG/ML Syringe 4 MG IV (01:16)
[2024-03-21 01:30] LABS: Bedside Glucose 137 mg/dL (74-106)
[2024-03-21 08:40] LABS: Bedside Glucose 169 mg/dL (74-106)
[2024-03-21] MEDS: Insulin Lispro 100 UNIT/ML INSULN.PEN SC ×3 (08:57→20:26)
[2024-03-21 09:22] LABS: Absolute Lymphocyte Count 1.77 X10^3/uL (0.83-4.51); Basophil# 0.05 X10^3/uL; Basophil% 0.4 % (0-1); Eosinophil# 0.12 X10^3/uL; Hematocrit 40.3 % (37-47); Hemoglobin 12.8 g/dL (12.0-15.0); Lymphocyte # 1.77 X10^3/ul (0.83-4.51); Lymphocyte % 15.2 % (19-41); Mean Corp Hgb Conc 31.8 g/dL (32-36); Mean Corpuscular Hgb 28.1 pg (27.0-32.0); Mean Corpuscular Volume 88.6 fL (81-99); Mean Platelet Vol. 10.4 fl (6.2-12.0); Monocyte# 0.65 X10^3/uL; Monocyte% 5.6 % (0-10); NRBC Flagged by Analyzer 0 % (0-5); Neutrophil # 8.97 X10^3/uL (2.7-7.7); Neutrophil % 77.2 % (47-70); Platelet Count 263 K/mm3 (150-450); RBC Distribution Width CV 12.5 % (11.6-14.6); RBC Distribution Width SD 40.9 fl (35.1-43.9); Red Blood Count 4.55 M/mm3 (4.2-5.4); White Blood Count 11.6 K/mm3 (4.4-11.0)
--- NOTE | 2024-03-21 09:41 | PCM.PN.SRG ---
Subjective Subjective Patient denies any nausea since late last night, still having flatus, states pain is more incisional. Objective Data Objective Data Vital Signs: Vital Signs Temp Pulse Resp BP Pulse Ox O2 Del Method O2 Flow Rate 97.8 F 94 14 137/69 H 94 Room Air 2 03/21/24 04:46 03/21/24 04:46 03/21/24 04:46 03/21/24 04:46 03/21/24 07:21 03/21/24 07:21 03/20/24 12:37 Oxygen Flow Rate (L/min) 2 Oxygen Delivery Method Room Air Weight: 195 lb 1.745 oz Body Mass Index (BMI) 38.0 Intake & Output: Intake and Output for Last 24 Hours 03/19/24 03/20/24 03/21/24 23:59 23:59 23:59 Intake Total 2380 / 2380 Balance 2380 / 2380 Lab / Micro Data 03/21/24 09:10 03/21/24 09:10 Labs: Laboratory Results - last 24 hr 03/20/24 12:18: POC Glucose 268 H 03/20/24 12:46: POC Glucose 257 H 03/20/24 20:19: POC Glucose 140 H 03/21/24 01:11: POC Glucose 137 H 03/21/24 07:50: POC Glucose 169 H 03/21/24 09:10: WBC 11.6 H, RBC 4.55, Hgb 12.8, Hct 40.3, MCV 88.6, MCH 28.1, MCHC 31.8 L, RDW Std Deviation 40.9, RDW Coeff of Prema 12.5, Plt Count 263, MPV 10.4, Immature Gran % (Auto) 0.600, Neut % (Auto) 77.2 H, Lymph % (Auto) 15.2 L, [place] % (Auto) 5.6, Eos % (Auto) 1.0, Baso % (Auto) 0.4, Absolute Neuts (auto) 9.0 H, Absolute Lymphs (auto) 1.77, Nucleated RBC % 0 Physical Exam Const oriented x3 and no apparent distress Resp normal respiratory effort Cardio regular rate GI GI Narrative: Abdomen: Soft, nondistended, tender near incision's dressed clean dry and intact, no peritoneal signs Assessment & Plan Assessment/Plan (1) S/P laparoscopy with lysis of adhesions: (2) Small bowel obstruction: PLAN: Plan Postop day 1 laparoscopic lysis of adhesions and release of small bowel obstruction. Will start patient on clears as nausea has improved. Possible discharge tomorrow if continues to do well and diet is able to be advanced. White blood count 11.7 down from 12.6 we will continue to monitor Continue pain control Continue ambulation Connie Hendrix M.D. Pager: [phone] [facility] [address] [place] [address], [address] [place] [address] Office: [phone]
[2024-03-21 09:56] LABS: Anion Gap 6 (5-15); BUN 13 mg/dL (7-18); BUN/Creat Ratio 15.2 RATIO (10-20); Calcium,Total 8.7 mg/dL (8.5-10.1); Chloride 106 mmol/L (98-107); Creatinine, Serum 0.86 mg/dL (0.55-1.02); EST Glomerular Filtration Rate 73 mL/min (>60); Est Glom Filt Rate - Afr Amer 88 mL/min (>60); Glucose 174 mg/dL (74-106); Potassium 3.6 mmol/L (3.5-5.1); Sodium Level 139 mmol/L (136-145)
[2024-03-21] MEDS: Pantoprazole Sodium 40 MG in 0.9% Normal Saline (100mL MB+) 100 ML 330 MG IV (10:31)
[2024-03-21] MEDS: 0.9% Saline Lock 10 ML Syringe IV (10:31)
[2024-03-21] MEDS: Enoxaparin 40 MG/0.4 ML Syringe SC (10:32)
[2024-03-21] MEDS: FLU VACC 2024-25(6MOS UP)/PF 45 MCG/0.5 ML SYRINGE IM (10:38)
--- NOTE | 2024-03-21 13:00 | PN.HOSP_ITS ---
Reason for Visit Reason for Visit: Diagnoses Complete intestinal obstruction, unspecified as to cause (03/20/24) Unspecified intestinal obstruction, unspecified as to partial versus complete obstruction (03/20/24) Other specified postprocedural states (03/20/24) Subjective Subjective Patient was seen and examined today, she states she is passing gas. Patient is currently on a clear liquid diet Objective Data Objective Data Vital Signs: Vital Signs Temp Pulse Resp BP Pulse Ox O2 Del Method O2 Flow Rate 98.2 F 91 16 134/70 H 96 Room Air 2 03/21/24 08:48 03/21/24 08:48 03/21/24 08:48 03/21/24 08:48 03/21/24 08:48 03/21/24 08:48 03/20/24 12:37 Oxygen Flow Rate (L/min) 2 Oxygen Delivery Method Room Air Weight: 88.5 kg Body Mass Index (BMI) 38.0 Intake & Output: Intake and Output for Last 24 Hours 03/19/24 03/20/24 03/21/24 23:59 23:59 23:59 Intake Total 2380 / 2380 110 / 110 Balance 2380 / 2380 110 / 110 Lab / Micro Data 03/21/24 09:10 03/21/24 09:10 Labs: Laboratory Results - last 24 hr 03/20/24 12:46: POC Glucose 257 H 03/20/24 20:19: POC Glucose 140 H 03/21/24 01:11: POC Glucose 137 H 03/21/24 07:50: POC Glucose 169 H 03/21/24 09:10: WBC 11.6 H, RBC 4.55, Hgb 12.8, Hct 40.3, MCV 88.6, MCH 28.1, M CHC 31.8 L, RDW Std Deviation 40.9, RDW Coeff of Prema 12.5, Plt Count 263, MPV 10.4, Immature Gran % (Auto) 0.600, Neut % (Auto) 77.2 H, Lymph % (Auto) 15.2 L, [place] % (Auto) 5.6, Eos % (Auto) 1.0, Baso % (Auto) 0.4, Absolute Neuts (auto) 9.0 H, Absolute Lymphs (auto) 1.77, Nucleated RBC % 0, Sodium 139, Potassium 3.6, Chloride 106, Carbon Dioxide 28.0, Anion Gap 6, BUN 13, Creatinine 0.86, Estim Creat Clear Calc 72.30, Est GFR (MDRD) Af Amer 88, Est GFR (MDRD) Non-Af 73, BUN/Creatinine Ratio 15.2, Glucose 174 H, Calcium 8.7 Physical Exam Const alert, oriented x3, no apparent distress and healthy appearing General Appearance: cooperative, well kempt and well developed Orientation / Consciousness: awake, oriented to person, oriented to place and oriented to time HEENT normocephalic, head/scalp atraumatic and moist oral mucous membranes Eyes PERRL, EOMs intact bilaterally and conjunctivae normal Neck supple, no JVD, thyroid normal and no carotid bruits General: trachea midline Resp normal respiratory effort, no retractions, no use of accessory muscles and clear to auscultation bilaterally Auscultation: Negative for rales, rhonchi or wheezes Cardio regular rate, regular rhythm, S1 normal heart sound, S2 normal heart sound, no murmurs, no rub and no gallops GI normal to inspection, nondistended, normoactive bowel sounds, soft to palpation and non-distended Extremity no clubbing, cyanosis or edema Skin no rashes or lesions noted General Skin Exam: no breakdown Neuro oriented x3, CN's II-XII intact bilaterally, moves all extremities, no focal motor deficits and no sensory deficits noted Sensorium / Orientation: awake, alert, oriented to person, oriented to place and oriented to time Speech: speech normal Psych affect normal Assessment & Plan Assessment/Plan (1) S/P laparoscopy with lysis of adhesions: PLAN: Plan 1. Small bowel obstruction-postop day #1 lysis of adhesions-patient's diet was advanced, general surgery participating in her care #2 type 2 diabetes-continue monitoring blood sugar, sliding scale insulin will be given as needed #3 essential hypertension-patient will be receiving hydralazine as needed for blood pressure, she can be placed back on lisinopril today. #4 hyperlipidemia-patient's atorvastatin is being held at this time, I do not believe she needs to be on it during this admission Total clinical time spent by myself addressing the patient's medical issues, reviewing all of her data, and collaborating with patient's care team: 35 minutes Charges/Coding Visit Charges Inpatient E&M: 54187 Subs Hosp L2
[2024-03-21] MEDS: Lisinopril 10 MG Tablet PO (14:22)
[2024-03-21] MEDS: Acetaminophen 325 MG Tablet 650 MG PO ×2 (14:22→20:20)
[2024-03-21 14:54] LABS: Bedside Glucose 276 mg/dL (74-106)
[2024-03-22 01:06] LABS: Bedside Glucose 178 mg/dL (74-106)
[2024-03-22 03:15] VITALS: BP 133/67; PULSE 91; RESP 16; TEMP 36.9; O2SAT 94
[2024-03-22 04:46] VITALS: BMI 38.2
--- NOTE | 2024-03-22 06:36 | PCM.PN.SRG ---
Subjective Subjective Patient tolerated clears, still having flatus, no bowel movement. Incisional pain controlled pain meds Objective Data Objective Data Vital Signs: Vital Signs Temp Pulse Resp BP Pulse Ox O2 Del Method O2 Flow Rate 98.5 F 91 16 133/67 H 94 Room Air 2 03/22/24 03:15 03/22/24 03:15 03/22/24 03:15 03/22/24 03:15 03/22/24 03:15 03/22/24 03:15 03/20/24 12:37 Oxygen Flow Rate (L/min) 2 Oxygen Delivery Method Room Air Weight: 195 lb 12.328 oz Body Mass Index (BMI) 38.2 Intake & Output: Intake and Output for Last 24 Hours 03/20/24 03/21/24 03/22/24 23:59 23:59 23:59 Intake Total 2380 / 2380 570 / 570 Balance 2380 / 2380 570 / 570 Lab / Micro Data 03/21/24 09:10 03/21/24 09:10 Labs: Laboratory Results - last 24 hr 03/21/24 07:50: POC Glucose 169 H 03/21/24 09:10: WBC 11.6 H, RBC 4.55, Hgb 12.8, Hct 40.3, MCV 88.6, MCH 28.1, MCHC 31.8 L, RDW Std Deviation 40.9, RDW Coeff of Prema 12.5, Plt Count 263, MPV 10.4, Immature Gran % (Auto) 0.600, Neut % (Auto) 77.2 H, Lymph % (Auto) 15.2 L, [place] % (Auto) 5.6, Eos % (Auto) 1.0, Baso % (Auto) 0.4, Absolute Neuts (auto) 9.0 H, Absolute Lymphs (auto) 1.77, Nucleated RBC % 0, Sodium 139, Potassium 3.6, Chloride 106, Carbon Dioxide 28.0, Anion Gap 6, BUN 13, Creatinine 0.86, Estim Creat Clear Calc 72.30, Est GFR (MDRD) Af Amer 88, Est GFR (MDRD) Non-Af 73, BUN/Creatinine Ratio 15.2, Glucose 174 H, Calcium 8.7 03/21/24 14:15: POC Glucose 276 H 03/21/24 20:26: POC Glucose 178 H Physical Exam Const oriented x3 and no apparent distress Resp normal respiratory effort Cardio regular rate GI GI Narrative: Abdomen: Soft, nondistended, tender near incision's dressed clean dry and intact, no peritoneal signs Assessment & Plan Assessment/Plan (1) S/P laparoscopy with lysis of adhesions: (2) Small bowel obstruction: PLAN: Plan Postop day 2 laparoscopic lysis of adhesions and release of small bowel obstruction. Will advance to transitional diet. Patient still having flatus tolerated clears. Patient continues to do well okay to DC home today. Labs pending Continue pain control Continue ambulation Connie Hendrix M.D. Pager: [phone] [facility] [address] [place] [address], [facility], [address] [place] [address] Office: [phone]
[2024-03-22] MEDS: Insulin Lispro 100 UNIT/ML INSULN.PEN SC ×2 (06:45→11:44)
[2024-03-22 06:50] VITALS: O2SAT 97
[2024-03-22 06:59] LABS: Absolute Lymphocyte Count 1.74 X10^3/uL (0.83-4.51); Absolute Neutrophil Count 4.3 X10^3/uL (2.0-7.7); Basophil# 0.04 X10^3/uL; Basophil% 0.6 % (0-1); Eosinophil# 0.22 X10^3/uL; Eosinophils% 3.3 % (0-5); Hematocrit 36.8 % (37-47); Hemoglobin 11.8 g/dL (12.0-15.0); Lymphocyte # 1.74 X10^3/ul (0.83-4.51); Lymphocyte % 25.8 % (19-41); Mean Corp Hgb Conc 32.1 g/dL (32-36); Mean Corpuscular Hgb 28.2 pg (27.0-32.0); Mean Corpuscular Volume 87.8 fL (81-99); Mean Platelet Vol. 10.9 fl (6.2-12.0); Monocyte# 0.41 X10^3/uL; Monocyte% 6.1 % (0-10); NRBC Flagged by Analyzer 0 % (0-5); Neutrophil # 4.29 X10^3/uL (2.7-7.7); Neutrophil % 63.6 % (47-70); Platelet Count 240 K/mm3 (150-450); RBC Distribution Width CV 12.3 % (11.6-14.6); RBC Distribution Width SD 39.2 fl (35.1-43.9); Red Blood Count 4.19 M/mm3 (4.2-5.4); White Blood Count 6.7 K/mm3 (4.4-11.0)
--- NOTE | 2024-03-22 07:03 | DCINST_ITS ---
Discharge Instructions Diet Discharge Diet: - (Transitional/low residual-remove peels x 1 week) Activity Discharge Activity: May Not Drive (while taking narcotic pain medications.) May shower in (days): 1 Lifting Restrictions: no lifting >20 lbs x 2 wks, no strenuous exercise for 4 wks Dressing / Incision Call your doctor if your incision/area has: Continuous Slow Oozing, Sudden Increased Bleeding, Increased Pain/ Swelling, Increased Redness, Foul Smelling Discharge and Swelling at the incision site Call your doctor if you observe: Fever of 101 or Higher Remove Dressing in: 2 days Cleanse incision/area with: Soap & Water Additional Dressing/Incision Instructions:: Steri-Strips will fall off in 7 to 10 days, if they do not fall off okay to remove after 10 days. Follow Up Care Please Follow Up With: Connie Hendrix MD When: Call the office for a follow-up appointment 2 weeks; after 5 PM and on the weekends call [phone] with any concerns. Test Results: Test results from this visit will be discussed in further detail at your follow- up appointment, if applicable. Discharge Plan Admission Admit Date/Time: 03/20/24 01:18 Attending Provider: Merle Moore Primary Care Provider: Luis Hdz Consulting Providers: Connie Hendrix; Shira Hernandez; Curt Melara Discharge Orders/Prescriptions Prescriptions: New oxycodone 5 mg capsule 5 mg PO Q6H PRN (Reason: pain) 3 Days Qty: 10 0RF No Action lisinopril 10 MG tablet 10 mg PO DAILY Qty: 30 1RF atorvastatin 40 mg tablet 40 mg PO QHS Ozempic 0.25 mg or 0.5 mg (2 mg/3 mL) pen injector 0.5 mg subcut QWEEK Rx Instructions: Friday Referrals / Follow Up: Luis Hdz MD [Primary Care Provider] -
[2024-03-22 07:05] LABS: Bedside Glucose 177 mg/dL (74-106)
[2024-03-22 09:39] VITALS: BP 147/79; PULSE 90; RESP 17; TEMP 36.8; O2SAT 93
[2024-03-22] MEDS: Lisinopril 10 MG Tablet PO (09:43)
[2024-03-22] MEDS: Enoxaparin 40 MG/0.4 ML Syringe SC (09:43)
[2024-03-22] MEDS: Pantoprazole Sodium 40 MG Tablet PO (10:39)
[2024-03-22 12:04] LABS: Bedside Glucose 207 mg/dL (74-106)
--- NOTE | 2024-03-22 13:53 | DS.PCM_ITS ---
Providers Date of Admission: 03/20/24 Date of Discharge: 03/22/24 Primary Care Physician: Dr. Luis Hdz MD Consultations 03/20/24 02:01 Consult: General Surgery Routine Consulting Provider: Connie Hendrix Reason for Consult: Bowel obstruction EMERGENT Consult: No MD Notified: Yes Date Notified: 03/20/24 Time Notified: : Method of Notification: ED Physician Initiated Reason For Visit: BOWEL OBSTRUCTION Diagnosis Discharge Diagnosis (1) S/P laparoscopy with lysis of adhesions: Status: Acute Code(s): Z98.890 - Other specified postprocedural states (2) Small bowel obstruction: Status: Acute Code(s): K56.609 - Unspecified intestinal obstruction, unspecified as to partial versus complete obstruction Medications at Discharge Home Medications lisinopril 10 mg tablet 10 mg PO DAILY #30 tabs 04/29/17 atorvastatin 40 mg tablet 40 mg PO QHS cholesterol 03/19/24 semaglutide 0.25 mg or 0.5 mg (2 mg/3 mL) subcutaneous pen injector (Ozempic) 0.5 mg subcut QWEEK weight loss 03/19/24 oxycodone 5 mg capsule 5 mg PO Q6H PRN pain 3 days #10 caps 03/22/24 Hospital Course Operations - (Laparoscopic extensive lysis of adhesion release of small bowel obstruction) Procedures - (CT abdomen pelvis/KUB) Summary of Care Provided Minutes Spent on Discharge: 38 Hospital Course: Patient is a 54-year-old female who presents emergency department was commenced on 03/20/2024 with a chief complaint abdominal pain, nausea, vomiting, and decreased bowel movements. Symptoms started about 2 days prior to presentation the emergency department and initially consisted of supraumbilical abdominal discomfort and eventually moved to the periumbilical area where it remained. She had ongoing nausea and emesis with bilious vomitus. Denied any coffee- ground emesis. Last bowel movement was a day on presentation however appeared to be very small. She does have a history of bowel obstruction with open abdominal surgery for colorectal cancer about 16 years ago. Vital signs on presentation were overtly unremarkable. CBC showed an elevated white count at 19.0. Hemoglobin was stable at 14.9. Glucose was elevated at 276 and patient is a known diabetic. Her UA was unremarkable. CMP was otherwise unremarkable. CT of the abdomen pelvis showed proximal small bowel obstruction located within the left side of the abdomen suggestive of the closed-loop obstruction secondary to adhesions or internal hernia. She is given IV fluids antiemetics and pain medication the emergency department and the case was discussed with general surgery. Symptoms persisted through the night and patient was taken the OR for diagnostic laparoscopy with extensive ERITREAN and release of small bowel obstruction. This was done on 03/20/2024. Postoperatively she has slowly improved. Patient had flatus postoperatively and clear liquid diet was started on 03/21/2024. She tolerated this diet well and she was advance to transitional diet on 03/22/2024 of which she tolerated well and was only having periumbilical pain. She had no worsening abdominal pain and has good bowel sounds at the time of discharge. Given her improvement in bowel function she was discharged home in stable condition on 03/22/2024. She was given as needed pain medication by general surgery and she needs to follow-up with Dr. Hendrix in 2 weeks MS that she follow-up with her primary care physician within the next month as able. Discharge diagnoses: Small bowel obstruction status post laparoscopic lysis of adhesions and release of small bowel Leukocytosis-resolved DM-2 Essential hypertension Hyperlipidemia Obesity History of colorectal cancer Physical Exam Const alert, oriented x3, no apparent distress, no limitations, healthy appearing and well nourished; Negative for average body habitus Constitutional Narrative: Middle-aged, white female, sitting up in a chair at the bedside, family at bedside, patient appears well, nontoxic appearing General Appearance: cooperative, comfortable, well kempt and well developed Orientation / Consciousness: awake, oriented to person, oriented to place and oriented to time Exam Limitations: no limitations Nutritional Appearance: obese HEENT normocephalic, head/scalp atraumatic, hearing grossly normal bilaterally and moist oral mucous membranes HEENT Narrative: Mallampati 2, no thrush, dentition is good Eyes PERRL, EOMs intact bilaterally and conjunctivae normal Eyes Narrative: No scleral icterus Neck no lymphadenopathy and supple Neck Narrative: Trachea midline, no thyroid enlargement Resp normal respiratory effort, no retractions, no use of accessory muscles and clear to auscultation bilaterally Auscultation: Negative for rales, rhonchi or wheezes Cardio regular rate, regular rhythm, S1 normal heart sound, S2 normal heart sound, no murmurs, no rub, no gallops and no clicks GI normal to inspection, nondistended, normoactive bowel sounds and soft to palpation GI Narrative: Minimal tenderness diffusely, bowel sounds are excellent, incisions are clean dry and intact with postoperative Steri-Strips in place Extremity no clubbing, cyanosis or edema Extremity Narrative: Pedal and radial pulses are 2+ Skin no rashes or lesions noted, skin turgor normal and no jaundice Skin Narrative: Postoperative wounds as above Neuro oriented x3, moves all extremities and no focal motor deficits Speech: speech normal Psych affect normal Psych Narrative: Very pleasant, anxious to go home, appropriate Weight / BMI Weight Weight: 88.8 kg Body Mass Index (BMI) 38.2 ABG / Lab / Microbiology Data 03/22/24 06:00 03/21/24 09:10 Laboratory: Laboratory Results - last 24 hr 03/21/24 14:15: POC Glucose 276 H 03/21/24 20:26: POC Glucose 178 H 03/22/24 06:00: WBC 6.7, RBC 4.19 L, Hgb 11.8 L, Hct 36.8 L, MCV 87.8, MCH 28.2, MCHC 32.1, RDW Std Deviation 39.2, RDW Coeff of Prema 12.3, Plt Count 240, MPV 10.9, Immature Gran % (Auto) 0.600, Neut % (Auto) 63.6, Lymph % (Auto) 25.8, [place] % (Auto) 6.1, Eos % (Auto) 3.3, Baso % (Auto) 0.6, Absolute Neuts (auto) 4.3, Absolute Lymphs (auto) 1.74, Nucleated RBC % 0 03/22/24 06:44: POC Glucose 177 H 03/22/24 11:42: POC Glucose 207 H D/C Instructions Discharge Diet: - (Transitional/low residual-remove peels x 1 week) Discharge Activity: Return to Normal Activity Return to work on: 03/24/24 May shower in (days): 1 Call your doctor if your incision/area has: Continuous Slow Oozing, Sudden Increased Bleeding, Increased Pain/ Swelling, Increased Redness, Foul Smelling Discharge and Swelling at the incision site Call your doctor if you observe: Fever of 101 or Higher Cleanse incision/area with: Soap & Water Additional Dressing/Incision Instructions: Steri-Strips will fall off in 7 to 10 days, if they do not fall off okay to remove after 10 days. Please Follow Up With: Connie Hendrix MD When: Call the office for a follow-up appointment 2 weeks; after 5 PM and on the weekends call [phone] with any concerns. Meaningful Use Info Meaningful Use Meaningful Use Diagnoses (Choose all that apply): None applicable Ischemic Stroke Statin Dosing Therapy Reference: STATIN DOSE THERAPY REFERENCE: * Patients > 75 years receive moderate or high dose statin therapy. * Patients 75 years or YOUNGER should receive HIGH intensity statin dose unless contraindicated. You will be required to document reason for non-treatment if statin daily dose does not meet guidelines. HIGH DOSE STATIN THERAPY DAILY Atorvastatin > than or = to 40 mg Rosuvastatin > than or = to 20 mg Amlodipine + Atorvastatin > than or = to 2.5/40 mg Ezetimibe + Simvastatin 10/80 mg Simvastatin 80mg Discharge Plan Admission Admit Date/Time: 03/20/24 01:18 Primary Reason for Your Visit: Abdominal pain/nausea vomiting Attending Provider: Merle Moore Primary Care Provider: Luis Hdz Consulting Providers: Connie Hendrix; Shira Hernandez; Curt Melara Discharge Orders/Prescriptions Prescriptions: New oxycodone 5 mg capsule 5 mg PO Q6H PRN (Reason: pain) 3 Days Qty: 10 0RF Continued lisinopril 10 MG tablet 10 mg PO DAILY Qty: 30 1RF atorvastatin 40 mg tablet 40 mg PO QHS Ozempic 0.25 mg or 0.5 mg (2 mg/3 mL) pen injector 0.5 mg subcut QWEEK Rx Instructions: Friday Referrals / Follow Up: Connie Hendrix MD [Med Staff - Active Staff] - Within 2 Weeks Luis Hdz MD [Primary Care Provider] - Within 1 Month Disposition Disposition (needs filled in before D/C Order can be placed): Home, Self Care Charges/Coding Visit Charges Inpatient E&M: 88827 Disch Hosp >30min
--- NOTE | 2024-03-22 14:06 | CASEMGMT ---
Patient has order for discharge. RN CM in to discuss needs at discharge. Patient denies needs or help at discharge. Patient had no further questions or concerns.
--- NOTE | 2024-03-22 14:39 | PHA.DC_ITS ---
Pharmacy [place] Med Reconciliation Pharmacy Service has performed discharge medication reconciliation for this patient. Attempted to executive assistant to general counsel, patient said she will not be picking up medication so does not need to know about it. Did leave handout in case patient decides to pharmacy picking technician. Medications reviewed. The patient's discharge medication list was reviewed for discrepancies and discrepancies were resolved. Medications at Discharge Home Medications lisinopril 10 mg tablet 10 mg PO DAILY #30 tabs 04/29/17 atorvastatin 40 mg tablet 40 mg PO QHS cholesterol 03/19/24 semaglutide 0.25 mg or 0.5 mg (2 mg/3 mL) subcutaneous pen injector (Ozempic) 0.5 mg subcut QWEEK weight loss 03/19/24 oxycodone 5 mg capsule 5 mg PO Q6H PRN pain 3 days #10 caps 03/22/24
--- NOTE | 2024-03-22 16:08 | CHAPLAIN ---
Type of Pastoral Visit _x__ Initial Visit ___ Follow-up Visit ___ On-call Visit ___ General Patient Visit ___ Spiritual Assessment ___ Family Conference ___ Bereavement ___ Rapid Response ___ Code Blue ___ Other (describe below) Pastoral Care Referral From _x__ Patient ___ Family ___ Nurse ___ Physician ___ Process Equipment Operator ___ Outer Diameter Grinder ___ Other (describe below) Sacrament/Intervention ___ Active listening ___ Anointing ___ Temple ___ Bereavement ___ Communion ___ Ludivina exploration ___ ___ Life review ___ Prayer ___ Reconciliation ___ Sacrament of Sick _x__ Supportive presence ___ Wedding ___ Other (describe below) Pastoral Comments patient is dressed and ready for discharge; offer of support and patient indicates that she is doing well and just glad to be going home
== END 2024-03-22 14:36 | disposition home or self-care (01) | DRG 337 ==
LOC: ED 03-20 01:24 → PCU 03-20 01:42
PROVIDERS: Internal Medicine; Surgery; Admitting Provider Family Medicine; Emergency Provider Emergency Medicine; PCP Family Medicine; Visit Provider Internal Medicine
PROC: 0DN84ZZ Release Small Intestine, Percutaneous Endoscopic Approach (ICD-10-PCS; CPT 49000; principal; 2024-03-20 08:30)
DX: K56.52 Intestinal adhesions [bands] with complete obstruction (principal); E66.9 Obesity, unspecified; D72.829 Elevated white blood cell count, unspecified; E11.9 Type 2 diabetes mellitus without complications; I10 Essential (primary) hypertension; E78.5 Hyperlipidemia, unspecified; Z68.35 Body mass index [BMI] 35.0-35.9, adult; Z79.85 Long-term (current) use of injectable non-insulin antidiabetic drugs; Z85.038 Personal history of other malignant neoplasm of large intestine; Z85.048 Personal history of other malignant neoplasm of rectum, rectosigmoid junction, and anus
CPT/HCPCS: 36415; 74018; 74177; 80048; 80053; 81001; 82962; 83690; 84145; 85025; 90656; 93005; 94668; 99284; J7030; J7040; Q9967; A4216; C1760; J2405

== ENCOUNTER 2024-03-29 21:06 | Emergency (ER) | payer OTHER, SELFPAY ==
[2024-03-29 21:07] VITALS: BP 153/80; PULSE 81; RESP 16; TEMP 36.5; O2SAT 98; BMI 36.3
--- NOTE | 2024-03-29 22:22 | EX.ED.DYSGE1 ---
HPI History of Present Illness Chief Complaint: Abd Pain PFSH PFSH Medical History (Updated 03/30/24 @ 00:02 by Background Daemon) Complete small bowel obstruction Obesity Diabetes mellitus, type 2 HLD (hyperlipidemia) Hypertension Colorectal cancer Home Medications ?Medication ?Instructions ?Recorded ?Last Taken ?Type lisinopril 10 mg tablet 10 mg PO DAILY #30 tabs 04/29/17 03/18/24 Rx atorvastatin 40 mg tablet 40 mg PO QHS cholesterol 03/19/24 03/18/24 History semaglutide 0.25 mg or 0.5 mg (2 0.5 mg subcut QWEEK weight loss 03/19/24 03/15/24 History mg/3 mL) subcutaneous pen injector (Ozempic) oxycodone 5 mg capsule 5 mg PO Q6H PRN pain 3 days #10 03/22/24 Unknown Rx caps Allergy/AdvReac Type Severity Reaction Status Date / Time oxaliplatin Allergy Anaphylaxis Verified 03/29/24 21:09 Family History Father Diabetes Hypertension ETOH abuse Family History adopted Surgical History (Updated 03/30/24 @ 00:02 by Background Daemon) S/P laparoscopy with lysis of adhesions History of colon resection Social History household members: spouse Smoking Status: Never smoker alcohol intake: never substance use type: does not use EXAM Physical Exam Const Vital Signs: 03/29/24 21:07 03/29/24 23:07 03/30/24 02:38 Temperature 97.7 F L Temperature Source Oral Pulse Rate 81 71 70 Respiratory Rate 16 16 16 Blood Pressure 153/80 H 146/77 H 126/65 H Blood Pressure Mean 104 100 85 Pulse Ox 98 98 96 Oxygen Delivery Method Room Air Room Air MDM MDM MDM Narrative Medical decision making narrative: HISTORY OF PRESENT ILLNESS: 54-year female presents abdominal pain after recent surgery. Notes nausea and diarrhea. No fever. No urinary complaints REVIEW OF SYSTEMS: Pertinent positives: Abdominal pain, nausea and diarrhea Pertinent negatives: Fever, chest pain, vomit PHYSICAL EXAM: Nursing triage notes reviewed, Vital signs reviewed Constitutional: please see mdm HENT: MMM Eyes: Pupils equal round and reactive to light, Extraocular muscles intact Neck: No stridor, no JVD, full neck ROM Lungs: Clear to auscultation, No wheezing or rales. No increased work of breathing, no conversational dyspnea, no accessory muscle use, no nasal flaring. No respiratory distress noted Heart: Regular rate and rhythm, No murmurs, No rubs and No gallops, 2+ distal pulses (radial, femoral, posterior tibial) in all extremities Abdomen: Soft, t diffuse tenderness, slight distention but no rigidity, rebound or guarding, no obvious peritoneal signs, no palpable pulsatile abdominal masses, no auscultated abdominal bruit : No CVAT Extremities: No edema Neuro: No focal neurological deficits, cranial nerves II through XII intact, 5/5 strength in all extremities. Intact sensation to light touch in all extremities, 2+ reflexes bilateral patella tendons. Normal gait. No ataxia. Skin: No rash or lesions noted MEDICAL DECISION MAKING: Chief Complaint: Abdominal pain External records reviewed: Underwent surgery on 03/20/2024 for bowel obstruction Factors affecting care: n bowel obstruction, hypertension, hyperlipidemia Social determinants of health: none History obtained from others: Consults: General Surgery (Dr. Hendrix)?discussed patient's recent surgery discussed recommendation for obtaining a CT scan with IV and p.o. contrast MDM Narrative: Patient was initially hemodynamically stable, afebrile and nontoxic-appearing. Exam with slight distention but no peritoneal signs I considered the following differential diagnosis: Obstruction, perforation, pancreatitis ALL IMAGES (IF OBTAINED) HAVE BEEN PERSONALLY REVIEWED AND INTERPRETED BY MYSELF. CT scan of the abdomen and pelvis with IV and p.o. contrast shows no evidence obvious obstruction CBC with no leukocytosis, no anemia thrombocytopenia BMP with renal insufficiency suggestive of dehydration otherwise no signs of metabolic acidosis, endorgan hypoperfusion, LFTs show no evidence of hepatobiliary pathology. Lipase is wnl indicating no pancreatic inflammation. No urinary complaints means no urinalysis indicate Repeat abdominal exam was benign. Patient felt better. Will discharge with Zofran. Discussed with surgeon Dr. Hendrix who agreed the patient is appropriate discharge further recommendations. No acute s surgical recommendations. The patient and/or family, caregivers express understanding. The patient and/or family, caregivers agrees with the plan. Shared decision making: I will have a discussion with the patient and or visitors regarding risk/benefits of further testing or admission. They will be made aware of of the risk/benefits inherent in this decision they will be given the opportunity to voice understanding. Total critical care time today provided was at least 0 []minutes. This excludes separately billable procedures. Critical care time (if documented) is secondary to the patient having high probability of clinically significant/life threatening deterioration in the patient's condition which required my urgent intervention. Impression: 1. Abdominal pain 2. Postop pain 3. History of small bowel obstruction Dispo: Discharge home This note was generated with [employer] dictation software. It may contain incorrect words, spelling, and punctuation that were not noted in review of the chart prior to signing. Lab Data Labs: Laboratory Results - last 24 hr 03/29/24 22:34 WBC 10.3 RBC 4.84 Hgb 13.6 Hct 41.8 MCV 86.4 MCH 28.1 MCHC 32.5 RDW Std Deviation 38.9 RDW Coeff of Prema 12.4 Plt Count 355 MPV 11.7 Sodium 138 Potassium 4.2 Chloride 101 Carbon Dioxide 31.0 Anion Gap 6 BUN 16 Creatinine 1.38 H Estim Creat Clear Calc 43.89 Est GFR (MDRD) Af Amer 51 L Est GFR (MDRD) Non-Af 42 L BUN/Creatinine Ratio 11.6 Glucose 312 H Calcium 9.0 Total Bilirubin 0.30 AST 16 ALT 43 Alkaline Phosphatase 87 Total Protein 7.2 Albumin 3.5 Globulin 3.7 Albumin/Globulin Ratio 0.9 Lipase 62 Radiography Diagnostic Testing: Clinical Impression(s) from Imaging Studies Abdomen/Pelvis CT 03/29/24 22:23 IMPRESSION: New ventral midline subcutaneous induration. No significant well-formed fluid collection. Previous small bowel obstruction appears resolved. Electronically Signed: Buck Cee MD at 1:22 EDT , Discharge Plan Triage Chief Complaint: Abd Pain ED Provider: Dontrell Dixon Dx/Rx/DC Orders Prescriptions: No Action lisinopril 10 MG tablet 10 mg PO DAILY Qty: 30 1RF atorvastatin 40 mg tablet 40 mg PO QHS Ozempic 0.25 mg or 0.5 mg (2 mg/3 mL) pen injector 0.5 mg subcut QWEEK Rx Instructions: [place] oxycodone 5 mg capsule 5 mg PO Q6H PRN (Reason: pain) 3 Days Qty: 10 0RF Primary Care Provider: Luis Hdz Referrals: Luis Hdz MD [Primary Care Provider] - Print Language: Bangladeshi
--- NOTE | 2024-03-29 22:23 | CT_ITS ---
STUDY: CT ABDOMEN AND PELVIS WITH CONTRAST REASON FOR EXAM: Female, 54 years old. Abdominal pain, rule out small bowel obstruction -- IV PO Contrast RADIATION DOSAGE (If Supplied By Facility): CTDIvol = ( 20.06 ) mGy, DLP = ( 1211.73 ) mGycm TECHNIQUE: Transaxial images were obtained from the dome of the diaphragm to the symphysis pubis without oral contrast. Oral and amp; IV Gastrografin and amp; 100mL Isovue-370 was administered. Sagittal and coronal images were reconstructed. Individualized dose optimization techniques were used for this CT. The protocol utilizes one or more of the following dose reduction techniques: automated exposure control, adjustment of mA and/or kV according to patient size,and/or use of iterative reconstruction technique. COMPARISON: March 19, 2024 CT abdomen and pelvis FINDINGS: The visualized lung bases are unremarkable. The visualized portions of the heart are within normal limits. Normal liver. Normal gallbladder and extrahepatic biliary system. Normal spleen. Normal pancreas. Normal bilateral adrenal glands. Normal right kidney. Normal left kidney. Normal visualized stomach. Oral contrast noted in the proximal small bowel. It appears less distended. Rectosigmoid anastomotic sutures again noted. The appendix is visualized and appears normal. Calcified plaque along the aorta and its branches. Normal inferior vena cava. Normal retroperitoneum. Normal urinary bladder. Uterus normal. New small ill-defined midline subcutaneous ventral induration. Normal osseous structures. CT/Abdomen/Pelvis WITH Contrast IMPRESSION: New ventral midline subcutaneous induration. No significant well-formed fluid collection. Previous small bowel obstruction appears resolved. Electronically Signed: Buck Cee MD at 1:22 EDT ,
[2024-03-29] MEDS: Morphine 4 MG/ML Syringe IV (22:31)
[2024-03-29] MEDS: Ondansetron 4 MG/2 ML Vial IV (22:31)
[2024-03-29 23:01] LABS: ALB/GLOB Ratio 0.9 RATIO (0.9-2.4); AST(SGOT) 16 U/L (15-37); Alanine Aminotransfer ALT/SGPT 43 U/L (13-56); Albumin, Serum 3.5 g/dL (3.2-5.0); Alkaline Phosphatase 87 U/L (45-117); Anion Gap 6 (5-15); BUN 16 mg/dL (7-18); BUN/Creat Ratio 11.6 RATIO (10-20); Chloride 101 mmol/L (98-107); Creatinine, Serum 1.38 mg/dL (0.55-1.02); EST Glomerular Filtration Rate 42 mL/min (>60); Est Glom Filt Rate - Afr Amer 51 mL/min (>60); Estimated Creatinine Clearance 43.89 ml/min; Globulin 3.7 g/dL (2.2-4.2); Glucose 312 mg/dL (74-106); Lipase 62 U/L (13-75); Potassium 4.2 mmol/L (3.5-5.1); Protein, Total 7.2 g/dL (6.4-8.2); Sodium Level 138 mmol/L (136-145)
[2024-03-29 23:07] VITALS: BP 146/77; PULSE 71; RESP 16; O2SAT 98
[2024-03-30 01:11] LABS: Hematocrit 41.8 % (37-47); Hemoglobin 13.6 g/dL (12.0-15.0); Mean Corp Hgb Conc 32.5 g/dL (32-36); Mean Corpuscular Hgb 28.1 pg (27.0-32.0); Mean Corpuscular Volume 86.4 fL (81-99); Mean Platelet Vol. 11.7 fl (6.2-12.0); Platelet Count 355 K/mm3 (150-450); RBC Distribution Width CV 12.4 % (11.6-14.6); RBC Distribution Width SD 38.9 fl (35.1-43.9); Red Blood Count 4.84 M/mm3 (4.2-5.4); White Blood Count 10.3 K/mm3 (4.4-11.0)
[2024-03-30 02:38] VITALS: BP 126/65; PULSE 70; RESP 16; O2SAT 96
[2024-03-30 02:50] VITALS: BP 126/65; PULSE 70; RESP 16; TEMP 36.7; O2SAT 96
== END 2024-03-30 02:51 | disposition home or self-care (01) ==
PROVIDERS: Emergency Provider Emergency Medicine; PCP Family Medicine; Visit Provider Emergency Medicine
DX: G89.18 Other acute postprocedural pain (principal); E11.9 Type 2 diabetes mellitus without complications; E78.5 Hyperlipidemia, unspecified; I10 Essential (primary) hypertension; R10.9 Unspecified abdominal pain; Z85.038 Personal history of other malignant neoplasm of large intestine; Z79.899 Other long term (current) drug therapy; Z79.85 Long-term (current) use of injectable non-insulin antidiabetic drugs
CPT/HCPCS: 74177; 80048; 80053; 83690; 85027; 96374; 96375; 99283; Q9967; A4216; J2405

== ENCOUNTER 2024-11-22 19:19 | Inpatient (IN) | payer BC, SELFPAY ==
[2024-11-22 19:20] VITALS: BP 201/86; PULSE 76; RESP 24; TEMP 36.1; O2SAT 100; BMI 30.9
--- NOTE | 2024-11-22 19:30 | RAD_ITS ---
PROCEDURE: ABDOMEN SINGLE VIEW (PORTABLE) 11/22/2024 REASON FOR EXAM: ABD PAIN, H/O BLOCKAGE TECHNIQUE: Frontal views of the abdomen COMPARISON: CT abdomen and pelvis on 03/30/2024, abdominal radiograph on 03/20/2024 FINDINGS: Bowel gas: Moderate constipation identified with fecal material distributed throughout the colon. No evidence of bowel obstruction. Calcifications: No suspicious calcifications. Bones: There are degenerative changes of the spine. RAD/Abdomen Single View (Portable) IMPRESSION: No radiographic evidence of bowel obstruction. Reading Location: [id number]
[2024-11-22 20:20] VITALS: BP 188/86; PULSE 75; RESP 12; O2SAT 96
[2024-11-22 20:44] LABS: Absolute Lymphocyte Count 1.94 X10^3/uL (0.83-4.51); Absolute Neutrophil Count 9.1 X10^3/uL (2.0-7.7); Basophil# 0.05 X10^3/uL; Basophil% 0.4 % (0-1); Eosinophil# 0.15 X10^3/uL; Eosinophils% 1.3 % (0-5); Hematocrit 40.1 % (37-47); Hemoglobin 13.5 g/dL (12.0-15.0); Lymphocyte # 1.94 X10^3/ul (0.83-4.51); Lymphocyte % 16.3 % (19-41); Mean Corp Hgb Conc 33.7 g/dL (32-36); Mean Corpuscular Hgb 28.5 pg (27.0-32.0); Mean Corpuscular Volume 84.6 fL (81-99); Mean Platelet Vol. 10.7 fl (6.2-12.0); Monocyte# 0.64 X10^3/uL; Monocyte% 5.4 % (0-10); NRBC Flagged by Analyzer 0 % (0-5); Neutrophil # 9.05 X10^3/uL (2.7-7.7); Platelet Count 292 K/mm3 (150-450); RBC Distribution Width CV 12.1 % (11.6-14.6); RBC Distribution Width SD 37.2 fl (35.1-43.9); Red Blood Count 4.74 M/mm3 (4.2-5.4); White Blood Count 11.9 K/mm3 (4.4-11.0)
[2024-11-22 21:00] VITALS: BP 198/87; PULSE 83; RESP 12; O2SAT 96
--- NOTE | 2024-11-22 21:02 | CT_ITS ---
PROCEDURE: ABDOMEN/PELVIS W IV CONT ONLY 11/22/2024 REASON FOR EXAM: ABDOMINAL PAIN TECHNIQUE: ABDOMEN/PELVIS W IV CONT ONLY Coronal and Sagittal reconstruction series were provided. CONTRAST: 87 mL Isovue 370 One or more dose reduction techniques were used (e.g., Automated exposure control, adjustment of the mA and/or kV according to patient size, use of iterative reconstruction technique. RADIATION DOSE SUMMARY: CTDlvol: 22.4 mGy DLP: 1192 mGycm COMPARISON: CT abdomen and pelvis on 03/30/2020 FINDINGS: Lung bases: Unremarkable Liver: Diffuse fatty infiltration. Gallbladder: Unremarkable Spleen: Normal size. Pancreas: Normal size without evidence of mass surrounding inflammation or ductal dilation. Adrenals: Unremarkable Kidneys: No hydronephrosis or stone. Bladder: Unremarkable Reproductive Organs: Unremarkable Bowel: There are dilated loops of small bowel in the left upper abdomen containing fecalized contents, with normal caliber small bowel distal to this with wall thickening. Trace fluid in the left upper quadrant of the abdomen. Colon and appendix are unremarkable. Lymph nodes: No significant lymphadenopathy. Vasculature: Diffuse atherosclerotic calcifications are noted. Bones: Left L5 pars defect. CT/Abdomen/Pelvis W IV Cont ONLY IMPRESSION: 1. There is wall thickening involving a segment of small bowel, which may be t he result of infectious or inflammatory bowel disease, with neoplasm also possible. Dilated small bowel proximal to this, in the left upper quadrant of the abdomen, could be the result of a developing obstruction. Consider Surgical consultation. 2. Hepatic steatosis. Reading Location: [id number]
--- NOTE | 2024-11-22 21:03 | ED.VIS.GI ---
HPI HPI - GI History of Present Illness Chief Complaint: Abd Pain Narrative Narrative: 54-year-old female past medical history of colorectal carcinoma with colon resection, previous bowel obstruction last year, surgery performed by Dr. Hendrix to get her unobstructed, presents with abdominal pain that began 4 to 5 hours ago. Its associated with nausea and vomiting. She has had decreased flatulence. Last normal bowel movement was this morning prior to this onset of her pain. She denies any hematemesis, no exacerbating or alleviating factors. She states this feels similar to her previous bowel obstruction. PFSH PFSH Medical History Complete small bowel obstruction Obesity Diabetes mellitus, type 2 HLD (hyperlipidemia) Hypertension Colorectal cancer Home Medications ?Medication ?Instructions ?Recorded ?Last Taken ?Type lisinopril 10 mg tablet 10 mg PO DAILY #30 tabs 04/29/17 03/18/24 Rx atorvastatin 40 mg tablet 40 mg PO QHS cholesterol 03/19/24 03/18/24 History dulaglutide 4.5 mg/0.5 mL 4.5 mg subcut QWEEK 11/22/24 Unknown History subcutaneous pen injector (Trulicity) Allergy/AdvReac Type Severity Reaction Status Date / Time oxaliplatin Allergy Anaphylaxis Verified 11/22/24 19:20 Family History Father Diabetes Hypertension ETOH abuse Surgical History S/P laparoscopy with lysis of adhesions History of colon resection Social History household members: spouse Smoking Status: Never smoker alcohol intake: never substance use type: does not use ROS ROS ED ROS Narrative Review of systems positive for nausea and vomiting, no fevers or chills, positive periumbilical abdominal pain. Decreased flatulence. No exacerbating or alleviating factors. EXAM Physical Exam Narrative Exam Narrative: Afebrile. Vital signs noted. Nontoxic-appearing. Cardiovascular examination reveals a regular rate and rhythm. Lungs are clear to auscultation bilaterally. Abdomen is soft with diffuse tenderness to palpation in the periumbilical area. Decreased bowel sounds. No guarding or rebound. Neurological examination nonfocal, nonlateralizing. Const Vital Signs: 11/22/24 19:20 11/22/24 20:20 11/22/24 21:00 Temperature 97 F L Temperature Source Oral Pulse Rate 76 75 83 Respiratory Rate 24 H 12 12 Blood Pressure 201/86 H 188/86 H 198/87 H Blood Pressure Mean 124 120 124 Pulse Ox 100 96 96 Oxygen Delivery Method Room Air Room Air 11/22/24 23:00 11/22/24 23:29 Temperature 98.2 F Temperature Source Pulse Rate 85 89 Respiratory Rate 14 18 Blood Pressure 177/90 H 158/74 H Blood Pressure Mean 119 102 Pulse Ox 94 97 Oxygen Delivery Method Room Air MDM MDM MDM Narrative Medical decision making narrative: Differential diagnosis includes but not limited to partial small bowel obstruction versus complete bowel obstruction versus constipation versus nonspecific abdominal pain versus gastroenteritis versus diverticulitis. History and physical does not necessarily support gastroenteritis or diverticulitis. Protocol workup entered by RN. I reviewed her initial laboratory work and she has slight elevation of her white count of 11.9 with hemoglobin normal at 13.5, hematocrit 40.1, platelet count 292. I reviewed and interpreted the x-rays of her abdomen/KUB and there is a large amount of fecal material but no evidence of an obstructive pattern. Patient administered morphine and ondansetron. I do feel CT imaging is indicated given her history of complete bowel obstruction listed as a problem. Additionally she has had laparoscopy with lysis of adhesions. I reviewed her remaining laboratory work and she has a normal sodium of 138 with potassium normal at 4.1, BUN of 9 and creatinine 0.90, glucose elevated 223 but normal anion gap of 14. ALT slightly elevated at 38 which I think is nonspecific, lipase normal at 28. I doubt pancreatitis. On review of the radiology report of the CT of the abdomen and pelvis, in the left upper quadrant there is thickening of a portion of the small bowel which could be the result of infectious or inflammatory bowel, or neoplasm. There is dilated proximal small bowel in the left upper quadrant according to radiology could be developing obstruction, so radiology suggest surgical consultation. I discussed the patient with Dr. Guerrero with general surgery. He requested that medicine admit the patient. Last time she did not require nasogastric tube and is currently declining it. Patient to be discussed with Dr. Allen. Patient is in stable condition. Of note, patient signed out to oncoming physician to ensure disposition. History & Record Review Discussion w/independent historian: Patient Lab Data Attestation: I reviewed the patient's lab results. Labs: Laboratory Results - last 24 hr 11/22/24 20:14 WBC 11.9 H RBC 4.74 Hgb 13.5 Hct 40.1 MCV 84.6 MCH 28.5 MCHC 33.7 RDW Std Deviation 37.2 RDW Coeff of Prema 12.1 Plt Count 292 MPV 10.7 Immature Gran % (Auto) 0.600 Neut % (Auto) 76.0 H Lymph % (Auto) 16.3 L [place] % (Auto) 5.4 Eos % (Auto) 1.3 Baso % (Auto) 0.4 Absolute Neuts (auto) 9.1 H Absolute Lymphs (auto) 1.94 Nucleated RBC % 0 Sodium 138 Potassium 4.1 Chloride 98 Carbon Dioxide 25.6 Anion Gap 14 BUN 9 Creatinine 0.90 Estim Creat Clear Calc 74.87 Est GFR (MDRD) Non-Af 75 BUN/Creatinine Ratio 10.1 Glucose 223 H Calcium 9.7 Total Bilirubin 0.57 AST 29 ALT 38 H Alkaline Phosphatase 87 Total Protein 7.2 Albumin 4.2 Globulin 3.0 Albumin/Globulin Ratio 1.4 Lipase 28 Radiography Diagnostic Testing: Clinical Impression(s) from Imaging Studies KUB X-Ray 11/22/24 19:30 IMPRESSION: No radiographic evidence of bowel obstruction. Reading Location: [facility] Abdomen/Pelvis CT 11/22/24 21:02 IMPRESSION: 1. There is wall thickening involving a segment of small bowel, which may be the result of infectious or inflammatory bowel disease, with neoplasm also possible. Dilated small bowel proximal to this, in the left upper quadrant of the abdomen, could be the result of a developing obstruction. Consider Surgical consultation. 2. Hepatic steatosis. Reading Location: [facility] Management Discussion w/another healthcare provider: Hospitalist and Rehab Consultant (Dr. Guerrero, General Surgery) Discharge Plan Dx/Rx/DC Orders Clinical Impression: Abdominal pain, Nausea and vomiting, Partial small bowel obstruction Disposition Disposition: Acute Care Hospital [facility] Discharge Date/Time: 11/23/24 02:51
[2024-11-22 21:10] LABS: ALB/GLOB Ratio 1.4 RATIO (0.9-2.4); AST(SGOT) 29 U/L (<=31); Alanine Aminotransfer ALT/SGPT 38 U/L (<=34); Albumin, Serum 4.2 g/dL (3.5-5.0); Alkaline Phosphatase 87 U/L (35-104); Anion Gap 14 (5-15); BUN 9 mg/dL (4-19); BUN/Creat Ratio 10.1 RATIO (10-20); Calcium,Total 9.7 mg/dL (7.6-11.0); Carbon Dioxide 25.6 mmol/L (21.0-32.0); Chloride 98 mmol/L (98-108); EST Glomerular Filtration Rate 75 (>60); Estimated Creatinine Clearance 74.87 ml/min (50-250); Glucose 223 mg/dL (70-99); Lipase 28 U/L (13-75); Potassium 4.1 mmol/L (3.3-5.1); Protein, Total 7.2 g/dL (5.9-8.4); Sodium Level 138 mmol/L (133-145); Total Bilirubin 0.57 mg/dL (0.00-1.30)
[2024-11-22] MEDS: Morphine 4 MG/ML Syringe IV ×2 (21:11→23:03)
[2024-11-22] MEDS: Ondansetron 4 MG/2 ML Vial IV (21:11)
[2024-11-22 23:00] VITALS: BP 177/90; PULSE 85; RESP 14; O2SAT 94
[2024-11-22] MEDS: hydrALAZINE 20 MG/ML Vial 10 MG IV (23:28)
[2024-11-22 23:29] VITALS: BP 158/74; PULSE 89; RESP 18; TEMP 36.8; O2SAT 97
[2024-11-23] VITALS (15 sets, daily range): BP systolic 125–171; BP diastolic 65–85; PULSE 79–97; RESP 6–18; TEMP 36.5–37.2; O2SAT 85–98; BMI 30.7
--- NOTE | 2024-11-23 00:10 | PCM.HP.STD ---
HPI - General General Date of Admission: 11/23/24 Date of Service: 11/23/24 Chief Complaint: Abdominal Pain with Nausea and Vomiting. HPI Narrative GEOFFREY WYNNE, is a 54 F with a past medical history of essential hypertension; on lisinopril, hyperlipidemia; on atorvastatin, obesity; with BMI of 31 this admission on dulaglutide, history of colorectal cancer; s/p resection, history of bowel obstruction; s/p diagnostic laparoscopy with extensive [facility] LUCIAN and release of SBO done by Dr. Hendrix (2023) who presents to [facility] ER complaining of abdominal pain with nausea and vomiting. Ms. Wynne reports her symptoms began approximately 5 hours prior to admission with the abrupt-onset of gradually worsening periumbilical abdominal pain that was cramping and [id number] and very similar to her previous small bowel obstruction so she decided to come in for further evaluation and treatment. She admits to associated nausea and vomiting with bilious emesis and decreased flatulence with the last normal BM earlier this morning. She states nothing makes the pain better or worse. She denies associated fever, chills, diarrhea, blood in stools, blood in vomitus, chest pain, palpitations, heart racing, SOB or rash. In the ER she was noted to have CT evidence of wall thickening involving a segment of the small bowel which may be the result of infectious or inflammatory bowel disease, with neoplasm also possible along with dilated bowel proximal to this in the LUQ which could be the result of obstruction with surgical consultation recommended in addition to hepatic steatosis complicated by highly elevated blood pressure of 201/86 mmHg present on admission consistent with Hypertensive Urgency and she was then admitted to the general medical floor for ongoing care for a stay that is expected to extend beyond 2 midnights. [facility] Medical History (Updated 11/23/24 @ 02:[address] Rai Casas, DO) Complete small bowel obstruction Obesity Diabetes mellitus, type 2 HLD (hyperlipidemia) Hypertension Colorectal cancer Home Medications ?Medication ?Instructions ?Recorded ?Last Taken ?Type lisinopril 10 mg tablet 10 mg PO DAILY #30 tabs 04/29/17 03/18/24 Rx atorvastatin 40 mg tablet 40 mg PO QHS cholesterol 03/19/24 03/18/24 History dulaglutide 4.5 mg/0.5 mL 4.5 mg subcut QWEEK 06/23/25 Unknown History subcutaneous pen injector (Trulicity) Allergy/AdvReac Type Severity Reaction Status Date / Time oxaliplatin Allergy Anaphylaxis Verified 11/22/24 19:20 Family History Father Diabetes Hypertension ETOH abuse Surgical History (Updated 11/23/24 @ 00:[address] Rai Casas DO) S/P laparoscopy with lysis of adhesions History of colon resection Social History household members: spouse Smoking Status: Never smoker alcohol intake: never substance use type: does not use ROS ROS Narrative Review of Systems: Constitutional: Patient denies fever or chills. Eyes: Patient denies changes in vision or discharge from eyes. ENT: Patient denies runny nose, sore throat or ear pain. Resp: Patient denies SOB or cough. CV: Patient denies chest pain, palpitations, heart racing or LE edema. GI: Patient admits to abdominal pain with nausea and vomiting with decreased flatulence as per HPI. : Patient denies dysuria or hematuria. MSK: Patient denies arthralgias or myalgias. Skin: Patient denies rash, abscess, wounds or jaundice. Psych: Patient denies symptoms of uncontrolled depression or anxiety. Neuro: Patient denies headache, paresthesias or focal neurologic deficits. Allergy: Patient denies lip swelling, tongue swelling or urticaria. Hematology: Patient denies easy bleeding or easy bruisability. Endocrinology: Patient denies polyuria, polydipsia, polyphagia or heat/cold intolerance. 14 point ROS otherwise negative except for positives noted above in HPI. Vital Signs Vital Signs Vital Signs: 11/22/24 19:20 11/22/24 20:20 11/22/24 21:00 Temperature 97 F L Temperature Source Oral Pulse Rate 76 75 83 Respiratory Rate 24 H 12 12 Blood Pressure 201/86 H 188/86 H 198/87 H Blood Pressure Mean 124 120 124 Pulse Ox 100 96 96 Oxygen Delivery Method Room Air Room Air 11/22/24 23:00 11/22/24 23:29 Temperature 98.2 F Temperature Source Pulse Rate 85 89 Respiratory Rate 14 18 Blood Pressure 177/90 H 158/74 H Blood Pressure Mean 119 102 Pulse Ox 94 97 Oxygen Delivery Method Room Air Weight Weight: 186 lb Body Mass Index (BMI) 30.9 Physical Exam Const alert and oriented x3 Constitutional Narrative: Mild distress noted. General Appearance: cooperative HEENT normocephalic, head/scalp atraumatic and hearing grossly normal bilaterally HEENT Narrative: Mucous membranes dry. Eyes PERRL and EOMs intact bilaterally Neck no lymphadenopathy and supple Resp normal respiratory effort, no retractions, no use of accessory muscles and clear to auscultation bilaterally Cardio regular rate and regular rhythm GI GI Narrative: Patient TTP over the periumbilical area with hypoactive bowel sounds. No guarding or rebound. Auscultation: hypoactive bowel sounds Extremity normal to inspection, full ROM and no clubbing, cyanosis or edema Skin Skin Narrative: Patient has no evidence of rash, abscess, wounds or jaundice. Neuro oriented x3, CN's II-XII intact bilaterally, moves all extremities and no focal motor deficits Sensorium / Orientation: awake, alert, oriented to person, oriented to place and oriented to time Speech: speech normal Psych affect normal Results Medical Records Data Attestation: I reviewed the patient's medical records Lab / Micro Data Attestation: I reviewed the patient's lab results. 11/22/24 20:14 11/22/24 20:14 Labs: Laboratory Results - last 24 hr 11/22/24 20:14: WBC 11.9 H, RBC 4.74, Hgb 13.5, Hct 40.1, MCV 84.6, MCH 28.5, MCHC 33.7, RDW Std Deviation 37.2, RDW Coeff of Prema 12.1, Plt Count 292, MPV 10.7, Immature Gran % (Auto) 0.600, Neut % (Auto) 76.0 H, Lymph % (Auto) 16.3 L, [place] % (Auto) 5.4, Eos % (Auto) 1.3, Baso % (Auto) 0.4, Absolute Neuts (auto) 9.1 H, Absolute Lymphs (auto) 1.94, Nucleated RBC % 0, Sodium 138, Potassium 4.1, Chloride 98, Carbon Dioxide 25.6, Anion Gap 14, BUN 9, Creatinine 0.90, Estim Creat Clear Calc 74.87, Est GFR (MDRD) Non-Af 75, BUN/Creatinine Ratio 10.1, Glucose 223 H, Calcium 9.7, Total Bilirubin 0.57, AST 29, ALT 38 H, Alkaline Phosphatase 87, Total Protein 7.2, Albumin 4.2, Globulin 3.0, Albumin/Globulin Ratio 1.4, Lipase 28 Imaging Radiology Impression KUB X-Ray 11/22/24 19:30 IMPRESSION: No radiographic evidence of bowel obstruction. Reading Location: [facility] Abdomen/Pelvis CT 11/22/24 21:02 IMPRESSION: 1. There is wall thickening involving a segment of small bowel, which may be the result of infectious or inflammatory bowel disease, with neoplasm also possible. Dilated small bowel proximal to this, in the left upper quadrant of the abdomen, could be the result of a developing obstruction. Consider Surgical consultation. 2. Hepatic steatosis. Reading Location: [facility] Assessment & Plan Assessment/Plan (1) Partial small bowel obstruction: (2) Nausea and vomiting: QUALIFIERS: Vomiting type: bilious vomiting Qualified Code(s): R11.14 - Bilious vomiting (3) Abdominal pain: QUALIFIERS: Abdominal location: periumbilical Qualified Code(s): R10.33 - Periumbilical pain (4) Hypertensive urgency: (5) S/P laparoscopy with lysis of adhesions: (6) History of colon resection: (7) Obesity (BMI 30.0-34.9): (8) Hepatic steatosis: PLAN: Plan 1. CT evidence of wall thickening involving a segment of the small bowel which may be the result of infectious or inflammatory bowel disease, with neoplasm also possible along with dilated bowel proximal to this in the LUQ which could be the result of obstruction with surgical consultation recommended with Nausea, Vomiting, Bilious Emesis and Abdominal Pain - Admit to general medical floor. Patient refused NGT placement in ER. Keep strict NPO and volume resuscitate. Check lactic acid. Give pantoprazole 40 mg IV daily. Give ketorolac IV prn for [id number] (level 1-5/10) pain or fever. Give morphine IV prn for severe (level 6-10/10) pain. Give ondansetron IV prn for nausea and vomiting. Give promethazine IM prn for breakthrough nausea. Recheck KUB in AM to follow trend. Finally, we will consult general surgeon on-call to see this patient on-rounds in the AM for further recommendations with help appreciated in advance. 2. Highly elevated blood pressure of 201/86 mmHg present on admission consistent with Hypertensive Urgency due to #1 - Give hydralazine IV prn for systolic blood pressure > 160 mmHg. 3. History of bowel obstruction; s/p diagnostic laparoscopy with extensive ST LUCIAN and release of SBO done by Dr. Hendrix (2023) complicating #1 & #2 - Noted. 4. History of colorectal cancer; s/p resection - Noted. 5. Obesity; with BMI of 31 this admission on dulaglutide with hepatic steatosis noted on CT this admission adding to the burden of disease outlined from #1 - #4 - Weight loss will be recommended. Check TSH. This complicates her case and may hamper recovery. 6. Hyperlipidemia; on atorvastatin - Resume statin when patient cleared for oral intake. 7. DVT/GI prophylaxis - SCD's only with possible impending surgery. Give pantoprazole 40 mg IV daily as noted in #1. Total time: Approximately (but not less than) 75 minutes. Charges/Coding Visit Charges Inpatient E&M: 01540 Init Hosp L3
--- OUTSIDE RECORDS SUMMARY | 2024-11-23 01:00 | XMS RPT_ITS | CCD ---
Author Organization [facility] Care Team Providers Care Pinmaker Name Role Phone Luis Staley MD Primary Care Provider Shivam Bowers Attending Unavailable RebekaLuis Primary Care Unavailable RobinsonShivam faith Referring Unavailable Ruma, Connie Attending Unavailable [facility] Luis Primary Care Unavailable RebekaLuis Referring Unavailable White, Shira L Referring Unavailable Shivam Bowers Attending Unavailable [place] Primary Care Unavailable Robotham, Connie Attending Unavailable Robotham, Connie Consulting Unavailable White, Shira L Admitting Unavailable [facility] Luis Primary Care Unavailable Merle Moore Referring Unavailable White, Shira L Consulting Unavailable Tereletsky, Curt Consulting Unavailable Kareemeletsaarti, Curt Attending Unavailable [place] Luis Primary Care Unavailable Dontrell Dixon Attending Unavailable Robotham, Connie Consulting Unavailable White, Shira L Admitting Unavailable [facility] Primary Care Unavailable Merle Moore Attending Unavailable White, Shira L Consulting Unavailable Tereletsky, Curt Consulting Unavailable Lobito Mooreyn Attending Unavailable Oscar Merle Consulting Unavailable White, Shira L Attending Unavailable Luis Staley MD Primary Care Provider Haagen BLEACH CHLORINATOR.VEGETABLE WORKER, Stephanie Unavailable Suppan BLEACH CHLORINATOR.VEGETABLE WORKER, Linda A Unavailable [phone] Suppan BLEACH CHLORINATOR.TIGRE, Linda A Unavailable [phone] LUIS STALEY Primary Care Unavailable RACHEL ESCALANTE Attending Unavailable LUIS STALEY Primary Care Unavailable HIGINIO CAMPUZANO Attending Unavailable BRODERICK ANSARI Referring Unavailable LUIS STALEY Primary Care Unavailable ROLF PATINO Attending Unavailable LUIS STALEY Primary Care Unavailable ELAN, BRODERICK Attending Unavailable ELAN, TOMS Referring Unavailable LUIS STALEY Primary Care Unavailable REBEKA, LUIS Maya Referring Unavailable RACHEL YANCEY Referring Unavailable REBEKA, LUIS Maya Primary Care Unavailable REBEKA, LUIS Maya Attending Unavailable REBEKA, LUIS Maya Primary Care Unavailable RACHEL YANCEY Referring Unavailable REBEKA, LUIS Maya Primary Care Unavailable REBEKA, LUIS J Primary Care Unavailable ROLF PATINO Attending Unavailable REBEKA, LUIS Maya Primary Care Unavailable RACHEL YANCEY Attending Unavailable REBEKA, LUIS Maya Primary Care Unavailable RACHEL ESCALANTE Attending Unavailable REBEKA, LUIS Maya Primary Care Unavailable RACHEL YANCEY Referring Unavailable RACHEL YANCEY Referring Unavailable REBEKA, LUIS Maya Primary Care Unavailable REBEKA, LUIS Maya Primary Care Unavailable ANDRA RUSSELL Referring Unavailable REBEKA, LUIS Maya Primary Care Unavailable BRODERICK ANSARI Referring Unavailable RACHEL YANCEY Referring Unavailable REBEKA, LUIS Maya Primary Care Unavailable REBEKA, LUIS Maya Primary Care Unavailable ROLF PATINO Attending Unavailable BRODERICK ANSARI Referring Unavailable RACHEL YANCEY Referring Unavailable REBEKA, LUIS Maya Primary Care Unavailable RACHEL YANCEY Referring Unavailable REBEKA, LUIS Maya Primary Care Unavailable REBEKA, LUIS Maya Attending Unavailable REBEKA, LUIS Maya Primary Care Unavailable LINDA MENJIVAR Attending Unavailable REBEKA, LUIS Maya Primary Care Unavailable LINDA MENJIVAR Attending Unavailable REBEKA, LUIS Maya Primary Care Unavailable DO MCCLAIN Attending Unavailable REBEKA, LUIS Maya Primary Care Unavailable REBEKA, LUIS Maya Referring Unavailable REBEKA, LUIS Maya Primary Care Unavailable REBEKA, LUIS Maya Primary Care Unavailable JESUS ORTIZ Attending Unavailable RACHEL YANCEY Referring Unavailable REBEKA, LUIS Maya Primary Care Unavailable BRODERICK ANSARI Attending Unavailable REBEKA, LUIS Maya Referring Unavailable REBEKA, LUIS Maya Primary Care Unavailable REBEKA, LUIS Maya Referring Unavailable REBEKA, LUIS Maya Primary Care Unavailable Allergies Allergy Classification Reported Allergen(s) Allergy Type Date of Onset Reaction(s) Facility oxaliplatin (2 sources) oxaliplatin Drug Allergy 02-22-2008 Anaphylaxis [facility] (20 sources) oxaliplatin; Translations: [OXALIPLATIN] Drug Allergy 02-22-2008 Anaphylaxis [facility] (1 source) oxaliplatin Drug Allergy 04-06-2024 [facility] (7 sources) metFORMIN; Translations: [METFORMIN] Drug Allergy 06-09-2024 Diarrhea [facility] Medications Current Medications Medication Drug Class(es) Dates [...] at bedtime. For cholesterol. 90 tablet 3 02/04/2024 01/29/2025 Active Comment on above: Take 1 tablet by olu th daily at bedtime. For cholesterol. Blood Glucose Control, Normal soln (20 sources) Start: 03-06-2020 End: 06-09-2024 Blood Glucose Control, Normal soln Indications: Diabetes mellitus without complication (HCC) Use as directed 1 Each 1 03/06/2020 06/09/2024 Discontinued (Other) Start: 03-06-2020 Blood Glucose Control, Normal soln Indications: Diabetes mellitus without complication (HCC) Use as directed 1 Each 1 03/06/2020 Active Comment on above: Use as directed Blood-Glucose Meter (20 sources) Start: 03-06-2020 End: 06-09-2024 Blood-Glucose Meter Indications: Diabetes mellitus without complication (HCC) Test One time a day. 1 Each 03/06/2020 06/09/2024 Discontinued (Other) Start: 03-06-2020 Blood-Glucose Meter Indications: Diabetes mellitus without complication (HCC) Test One time a day. 1 Each 03/06/2020 Active Start: 03-06-2020 Blood-Glucose Meter Indications: Diabetes mellitus without complication (HCC) Test One time a day. 1 Each 0 03/06/2020 Active Comment on above: Test One time a day. CPAP/BIPAP/OTHER (20 sources) Start: 05-10-2024 End: 09-25-2051 CPAP/BIPAP/OTHER Type .CPAPSettings into a note to see current settings/supplies/DME information. 1 Each 05/10/2024 09/25/2051 Active Start: 12-08-2023 End: 04-24-2051 CPAP/BIPAP/OTHER Type .CPAPS ettings into a note to see current settings/supplies/DME information. 1 Each 12/08/2023 04/24/2051 Active Start: 12-08-2023 End: 04-24-2051 CPAP/BIPAP/OTHER Type .CPAPS ettings into a note to see current settings/supplies/DME information. 1 Each 0 12/08/2023 04/24/2051 Active 0.5 ml dulaglutide 3 mg/ml auto-injector (13 sources) GLP-1 Receptor Agonist Start: 07-13-2024 End: 07-13-2025 inject 1.5 mg by subcutaneous injection every week dulaglutide (TRULICITY) 1.5 mg/0.5 mL pen injector Indications: Diabetes mellitus without complication (HCC) Inject 1.5 mg subcutaneously one time a week. 6 mL 3 07/13/2024 08/10/2024 Discontinued (Clinical Decision) Start: 06-09-2024 End: 06-28-2025 inject 0.75 mg by subcutaneous injection every week dulaglutide (TRULICITY) 0.75 mg/0.5 mL pen injector Indications: Diabetes mellitus without complication (HCC) Inject 0.75 mg subcutaneously one time a week. 6 mL 3 06/28/2024 07/13/2024 Discontinued Start: 12-18-2020 End: 12-19-2022 inject 1 dose [...] dulaglutide (TRULICITY) 3 mg/0.5 mL pen injector (1 source) Start: End: inject 3 mg by subcutaneous injection every week dulaglutide (TRULICITY) 3 mg/0.5 mL pen injector Indications: Diabetes mellitus without complication (HCC) Inject 3 mg subcutaneously one time a week. 2 mL 08/10/2024 09/09/2024 Active dulaglutide (TRULICITY) 4.5 mg/0.5 mL pen injector (19 sources) Start: End: inject 4.5 mg by subcutaneous injection every week dulaglutide (TRULICITY) 4.5 mg/0.5 mL pen injector Indications: Diabetes mellitus without complication (HCC) Inject 4.5 mg subcutaneously one time a week. 2 mL 5 09/17/2024 03/16/2025 Active Start: 12-13-2022 End: 12-05-2023 inject 4.5 mg by subcutaneous injection every [...] one time a week. 2 mL 12/13/2022 12/13/2023 Active Comment on above: Inject 4.5 mg subcut aneously one time a week. lisinopril 20 mg oral tablet (20 sources) Angiotensin Converting Enzyme Inhibitor Start: 022 End: take 1 tablet by mouth once daily lisinopril (ZESTRIL) 20 mg tablet Indications: Essential hypertension Take 1 tablet by mouth once daily. 90 tablet 1 02/04/2024 Active Comment on above: Take 1 tablet by olu th once daily. semaglutide (OZEMPIC) 0.25 mg or 0.5 mg (2 mg/3 mL) pen (15 sources) Start: End: 01-08-2 025 inject 0.5 mg by subcutaneous injection every week semaglutide (OZEMPIC) 0.25 mg or 0.5 mg (2 mg/3 mL) pen Indications: Diabetes mellitus without complication (HCC) Inject 0.5 mg subcutaneously one time a week. 3 mL 12/05/2023 06/09/2024 Discontinued (Other) Start: 12-05-2023 End: 12-04-2024 inject 0.5 mg by subcutaneous injection every week semaglutide (OZEMPIC) 0.25 mg or 0.5 mg (2 mg/3 mL) pen Indications: Diabetes mellitus without complication (HCC) Inject 0.5 mg subcutaneously one time a week. 3 mL 12/05/2023 12/04/2024 Active Vitamin B Complex (19 sources) End: 08-10-2024 vitamin B complex (B COMPLEX ORAL) Take by mouth once daily. 08/10/2024 Discontinued (Discontinued by Patient) vitamin B comple x (B COMPLEX ORAL) Take by mouth once daily. Active vitamin B comple x (B COMPLEX ORAL) Take by mouth once daily. 0 Active Completed/Discontinued Medications Medication Drug Class(es) Dates Sig (Normalized) Sig (Original) Benzocaine (1 source) Standardized Chemical Allergen Start: 11-13-2023 End: 11-13-2023 benzocaine 20% 1 [place] (TOPEX) calcium chloride 0.0014 meq/ml / potassium chloride 0.004 meq/ml / sodium chloride 0.103 meq/ml / sodium lactate 0.028 meq/ml injectable solution (1 source) Start: 11-13-2023 End: 11-13-2023 lactated ringers iv infusion diphenhydrAMINE (1 source) Histamine-1 Receptor Antagonist Start: 11-13-2023 End: 11-13-2023 diphenhydrAMINE 12.5-50 mg injection (BENADRYL) dulaglutide (TRULICITY) 3 mg/0.5 mL pen injector [...] mg subcutan eously one time a week. 1 ml fentaNYL 0.05 mg/ml injection (1 source) Opioid Agonist Start: 11-13-2023 End: 11-13-2023 fentaNYL 50 mcg/mL 25-100 mcg injection (SUBLIMAZE) 5 ml midazolam 1 mg/ml injection (1 source) Benzodiazepine Start: 11-13-2023 End: 11-13-2023 midazolam 1-5 mg injection (VERSED) Problems Active Problems Problem Classification Problem Date Documented Date Episodic/Chronic Abdominal pain (1 source) Unspecified abdominal pain; Translations: [Unspecified abdominal pain] Onset: 04-15-2024 Episodic Diabetes mellitus without complication (20 sources) Diabetes mellitus without complication; Translations: [Type 2 diabetes mellitus without complications] Onset: 09-06-2013 Resolved: 06-09-2024 10-24-2015 Chronic Disorders of lipid metabolism (20 sources) Mixed hyperlipidemia; Translations: [Mixed hyperlipidemia] Onset: 02-28-2006 02-28-2006 Chronic Essential hypertension (20 sources) Essential hypertension; Translations: [Essential (primary) hypertension] Onset: 02-28-2006 08-08-2017 Chronic Intestinal obstruction without hernia (2 sources) Complete intestinal obstruction, unspecified as to cause; Translations: [Unspecified intestinal obstruction, unspecified as to partial versus complete obstruction] Onset: 03-30-2024 Episodic Nutritional deficiencies (20 sources) Vitamin D deficiency; Translations: [Vitamin D deficiency, unspecified] Onset: 07-09-2010 Resolved: 12-18-2020 09-06-2013 Chronic Other liver diseases (1 source) Alkaline phosphatase raised; Translations: [Abnormal levels of other serum enzymes] 12-02-2023 Episodic Other nervous system disorders (2 sources) Other acute postprocedural pain; Translations: [Other acute postprocedural pain] Onset: 03-22-2024 Episodic Other nutritional; endocrine; and metabolic disorders (20 sources) Obese class II; Translations: [Obesity, unspecified] Onset: 12-13-2022 12-13-2022 Chronic Other nutritional; endocrine; and metabolic disorders (2 sources) Morbid (severe) obesity due to excess calories; Translations: [Morbid obesity (HCC)] Onset: 11-13-2023 Chronic Other nutritional; endocrine; and metabolic disorders (1 source) Body mass index (BMI) 35.0-35.9, adult; Translations: [Class 2 severe obesity with serious comorbidity and body mass index (BMI) of 35.0 to 35.9 in adult, unspecified obesity type (HCC)] Onset: 11-13-2023 Chronic Other nutritional; endocrine; and metabolic disorders (1 source) Obesity, unspecified; Translations: [Obesity, Class II, BMI 35-39.9] Onset: 12-13-2022 Chronic Other screening for suspected conditions (not mental disorders or infectious disease) (7 sources) Patient encounter status; Translations: [Encounter for screening mammogram for malignant neoplasm of breast] Episodic Residual codes; unclassified (2 sources) Obstructive sleep apnea syndrome; Translations: [Obstructive sleep apnea (adult) (pediatric)] 12-08-2023 Chronic Residual codes; unclassified (1 source) Obstructive sleep apnea (adult) (pediatric); Translations: [JANA (obstructive sleep apnea)] Onset: 05-10-2024 Chronic Residual codes; unclassified (1 source) Other specified postprocedural states; Translations: [Other specified postprocedural states] Onset: 03-30-2024 Episodic Unclassified (2 sources) 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 [employer] Onset: 04-27-2024 04-27-2024 Past or Other Problems Problem Classification Problem [...] bleeding] Onset: 09-02-2007 09-02-2007 Episodic Gastrointestinal hemorrhage (20 sources) Hematochezia; Translations: [Melena] Onset: 08-10-2007 Resolved: 12-18-2020 12-18-2020 Episodic Mood disorders (20 sources) Depressive disorder; Translations: [Depression] Onset: 12-21-2010 Resolved: 12-13-2022 12-21-2010 Chronic Other liver diseases (1 source) Abnormal levels of other serum enzymes; Translations: [Elevated alkaline phosphatase level] Onset: 12-05-2023 Episodic Other nutritional; endocrine; and metabolic disorders (12 sources) Obesity; Translations: [Obesity, unspecified] Onset: 11-05-2010 Resolved: 12-13-2022 11-05-2010 Chronic Other nutritional; endocrine; and metabolic disorders (20 sources) Severe obesity; Translations: [Morbid (severe) obesity due to excess calories] Onset: 11-05-2010 Resolved: 06-09-2024 10-02-2023 Chronic Other nutritional; endocrine; and metabolic disorders (20 sources) Metabolic syndrome X; Translations: [Dysmetabolic syndrome] Onset: 10-03-2010 Resolved: 11-03-2013 11-03-2013 Chronic Other skin disorders (20 sources) Sebaceous cyst of skin; Translations: [Sebaceous [...] Results Test Name Value Interpretation Reference Range Facility HbA1c (Bld)on 09-10-2024 Average glucose Estimated from glycated hemoglobin (Bld) [Mass/Vol] 203 mg/dL Normal [facility] Comment on above: Order Comment: Yolande dodge Type: BLOOD SPECIMENOrdering Facility: [facility] Address: [address] [place] [address] Result Comment: eAG: (Estimated average glucose) is a calculated value from HgbA1c and is sales account representative of the average blood glucose level in the last 2-3 month period. Performed By: #### 5 [id number] ####[facility] [id number] [place] [address] [place] [facility] HbA1c (Bld) [Mass fraction] 8.7 % High 4.3-5.6 [facility] Comment on above: Order Comment: Yolande dodge Type: BLOOD SPECIMENOrdering Facility: [facility] Address: [address] [place] [address] Result Comment: [place] Diabetes Association guidelines indicate that patients with HgbA1c in the range 5.7-6.4% are at increased risk for development of diabetes, and intervention by lifestyle modification may be beneficial. HgbA1c greater or equal to 6.5% is considered diagnostic of diabetes. Performed By: #### 5 [id number] ####[facility] [id number] [address] [facility] CNOVon 07-13-2024 CNOV Office Visit (FAMPWS ) ANGELIQUE WYNNE ([id number]) 1970 F Date Time Provider Department 07/13/24 1:20 PM LINDA MENJIVAR During your visit today, we recorded the following information about you: Pulse Blood pressure Weight 75/minute 132/80 83 kg Linda Menjivar APRN.CNP 07/13/2024 1:26 PM Signed This is a 54 year old female who presents today with: Patient presents with: Medication Follow-up HISTORY OF PRESENT ILLNESS: Angelique Wynne is a 54 year old female. Patient presents with: Medication Follow-up No problems with Trulicity. BSS 162- 235 No nausea or vomiting No diarrhea. Was on Trulicity before and did fine. 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 Other and unspecified hyperlipidemia Personal history of malignant neoplasm of rectum, rectosigmoid junction, and anus PAST SURGICAL HISTORY Procedure Laterality Date COLECTOMY PARTIAL W/ANASTOMOSIS 10/01/2007 low anterior resection 31ceea anastamosis COLON SURGERY HX COLONOSCOPY FLX DX W/COLLJ SPEC WHEN PFRMD 10/03/2008 clean anastamosis COLONOSCOPY FLX DX W/COLLJ SPEC WHEN PFRMD 10/23/09, 11/05/11 clean anastamosis - recommend 3 year follow up COLONOSCOPY FLX DX W/COLLJ SPEC WHEN PFRMD 01/03/2015 clean anastamosis - recommend 5 year follow up COLONOSCOPY FLX DX W/COLLJ SPEC WHEN PFRMD 01/06/2020 Colonoscopy COLONOSCOPY W/BIOPSY SINGLE/MULTIPLE 09/02/2007 EGD TRANSORAL BIOPSY SINGLE/MULTIPLE 09/02/2007 EGD TRANSORAL BIOPSY SINGLE/MULTIPLE 10/03/2008 INSJ TUNNELED CTR VAD W/SUBQ PORT AGE 5 YR/> 11/20/2007 Left Subclavian REMOVED PAST SURGICAL HISTORY OF 2004 needle biopsy of the left breast PAST SURGICAL HISTORY OF lysis of adhesions due to SBO ALLERGIES Oxaliplatin and Metformin MEDICATIONS Current Outpatient Medications Medication Sig dulaglutide (TRULICITY) 0.75 mg/0.5 mL pen injector Inject 0.75 mg subcutaneously one time a week. blood sugar diagnostic test strip Use with blood glucose test once daily, Insulin Dep? No Lancets Use with blood glucose test once daily. Insulin Dep? Yes CPAP/BIPAP/OTHER Type .CPAPSettings into a note to see current settings/supplies/DME information. atorvastatin (LIPITOR) 40 mg tablet Take 1 tablet by mouth daily at bedtime. For cholesterol. lisinopril (ZESTRIL) 20 mg tablet Take 1 tablet by mouth once daily. CPAP/BIPAP/OTHER Type .CPAPSettings into a note to see current settings/supplies/DME information. vitamin B complex (B COMPLEX ORAL) Take by mouth once daily. No current facility-administered medications for this visit. FAMILY HISTORY Adopted: Yes Problem Relation Age of Onset Diabetes Father Heart Father 62 from [place] Hypertension Father Heart Sister cancer--possible heart attack with chemo other (Crohn's Disease) Daughter Social History Tobacco Use Smoking status: Never Smokeless tobacco: Never Vaping Use Vaping status: Never Used Substance Use Topics Alcohol use: Yes Comment: Rarely Drug use: No EXAM: BP 132/80 Pulse 75 Wt 83 kg (183 lb) LMP 09/19/2017 BMI 36.96 kg/m? PHYSICAL EXAM: Physical Exam Vitals reviewed. Constitutional: Appearance: Normal appearance. Cardiovascular: Rate and Rhythm: Normal rate and regular rhythm. Pulses: Normal pulses. Heart sounds: Normal heart sounds. Pulmonary: Effort: Pulmonary effort is normal. Breath sounds: Normal breath sounds. Musculoskeletal: General: Normal range of motion. Comments: Moves all ext. And walks w/o assistive device Neurological: Mental Status: She is alert and oriented to person, place, and time. LABS: ASSESSMENT/PLAN: 1. Diabetes mellitus without complication (HCC) - ICD9: 250.00, ICD10: E11.9 - Controlled - Continue current medications - DULAGLUTIDE 1.5 MG/0.5 ML SUBCUTANEOUS PEN INJECTOR Discussed treatment plan and patient voices understanding. Patient's questions answered appropriately. Medications and potential side effects were discussed and patient voices understanding. Return to the office as scheduled or as needed for worsening/no improvement. ROSA Mccartney Jacqueline A, APRN.CNP 07/13/2024 1:26 PM Addendum 1) Increase Trulicity 1.5 mg weekly 2) Follow up in 1 month Allergies As of Date: 07/13/2024 Noted Allergy Reaction OXALIPLATIN 02/22/2008 10 - Anaphylaxis Comments: Went to [facility] ER 02/08/08 METFORMIN 06/09/2024 6 - Diarrhea Comments: Severe diarrhea. Date Reviewed: 07/13/2024 Reviewed by: Michelle Cunha MA - Fully Assessed Reason for Visit: Medication Follow-up [270] Visit Diagno (more content not included)... Normal [facility] CNPNon 06-10[facility]2024 [facility] ANGELIQUE WYNNE ([id number]) 1970 F Date Time Provider Department 06/10/24 DO MCCLAIN [facility] During your visit today, we recorded the following information about you: Yojana Dodge LPN 06/10/2024 9:29 AM Signed Allergies As of Date: 06/10/2024 Noted Allergy Reaction OXALIPLATIN 02/22/2008 10 - Anaphylaxis Comments: Went to [facility] ER 02/08/08 METFORMIN 06/09/2024 6 - Diarrhea Comments: Severe diarrhea. Date Reviewed: 06/09/2024 Reviewed by: Luz Marina Leung MA - Fully Assessed Reason for Visit: Sleep PAP [Other] Cmt: Compliance report Prescriptions as of 06/10/2024 - blood sugar diagnostic test strip Use with blood glucose test once daily, Insulin Dep? No - Lancets Use with blood glucose test once daily. Insulin Dep? Yes - dulaglutide (TRULICITY) 0.75 mg/0.5 mL pen injector Inject 0.75 mg subcutaneously one time a week. - CPAP/BIPAP/OTHER Type .CPAPSettings into a note to see current settings/supplies/DME information. - atorvastatin (LIPITOR) 40 mg tablet Take 1 tablet by mouth daily at bedtime. For cholesterol. - lisinopril (ZESTRIL) 20 mg tablet Take 1 tablet by mouth once daily. - CPAP/BIPAP/OTHER Type .CPAPSettings into a note to see current settings/supplies/DME information. - vitamin B complex (B COMPLEX ORAL) Take by mouth once daily. Problem List As Of Date 06/10/2024 Noted Resolved MIXED HYPERLIPIDEMIA [E78.2] 02/28/2006 Essential [...] Class 2 severe obesity with serious comorbidity*11/05/2010 06/09/2024 Depression [F32.A] 12/21/2010 12/13/2022 Diabetes mellitus without complication (HCC) [E*09/06/2013 06/09/2024 Vitamin D deficiency [E55.9] 09/06/2013 Personal history of rectal cancer [Z85.048] 06/28/2014 Obesity, Class II, BMI 35-39.9 [E66.812] 12/13/2022 Encounter Status:Closed by YOJANA DODGE on 06/10/24 [facility] CNOVon 06-09-2024 CNOV Office Visit (FAMPWS ) ANGELIQUE WYNNE ([id number]) 1970 F Date Time Provider Department 06/09/24 9:00 AM LUIS STALEY During your visit today, we recorded the following information about you: Pulse Blood pressure Weight Height 85/minute 138/74 83.9 kg 1.499 m Luis Staley MD 06/09/2024 9:38 AM Signed Patient presents with: 6 Month Exam HPI: Patient presents today for office visit for routine 6 month follow up. DM: Has not been testing her sugars at home. Has been off Ozempic for about 3 months. A1c up at 9.6 Was to have gastric bypass surgery in mar/apr. Ended up having emergent bowel obstruction surgery. Gastric bypass postponed to 05/19/24. Opted out of surgery at that time. Watches diet. Sugars are much higher. She liked trulicity much better. Cannot tolerated metformin. Wants to retry. Does not have strips and lancets. HLD: No myalgias Watches diet. HTN: Monitors BP occ Denies chest pain and shortness of breath Denies headaches and dizziness Denies palpitations and syncope Denies edema JANA: Using CPAP nightly. No snoring. Sleeping well through the night when she wears CPAP. Feels rested when waking. No daytime fatigue. Benefiting from use and should continue therapy. Latest Ref Rng 06/01/2024 Hemoglobin A1C 4.3 - 5.6 % 9.6 (H) Estimated Average Glucose mg/dL 229 CEA <=2.9 ng/mL 0.6 CEA has been stable for years. Will follow. Was in the hospital in the fall for sbo. Was to follow up after but never did. Underwent lysis of adhesions by Dr García at [facility] MEDICATIONS: Current Outpatient Medications Medication Sig CPAP/BIPAP/OTHER Type .CPAPSettings into a note to see current settings/supplies/DME information. atorvastatin (LIPITOR) 40 mg tablet Take 1 tablet by mouth daily at bedtime. For cholesterol. lisinopril (ZESTRIL) 20 mg tablet Take 1 tablet by mouth once daily. CPAP/BIPAP/OTHER Type .CPAPSettings into a note to see current settings/supplies/DME information. vitamin B complex (B COMPLEX ORAL) Take by mouth once daily. semaglutide (OZEMPIC) 0.25 mg or 0.5 mg (2 mg/3 mL) pen Inject 0.5 mg subcutaneously one time a week. (Patient not taking: Reported on 04/20/2024) Lancets lancets Use with blood glucose test once daily. Insulin Dep? Yes (Patient not taking: Reported on 04/20/2024) blood sugar diagnostic test strip Use with blood glucose test once daily, Insulin Dep? No (Patient not taking: Reported on 04/20/2024) Blood-Glucose Meter Test One time a day. (Patient not taking: Reported on 04/20/2024) Blood Glucose Control, Normal soln Use as directed (Patient not taking: Reported on 04/20/2024) No current facility-administered medications for this visit. ALLERGIES: ALLERGIES Allergen Reactions Oxaliplatin Anaphylaxis Went to [facility] ER 02/08/08 PAST MEDICAL HISTORY [...] Never Smokeless tobacco: Never Vaping Use Vaping status: Never Used Substance Use Topics Alcohol use: Yes Comment: Rarely Drug use: No Reviewed current medications, allergies, past medical history, surgical history, family history and social history today. REVIEW OF SYSTEMS No current gi issues. All other reviewed and negative other than HPI. HEALTH MAINTENANCE: Reviewed health maintenance issues today and recommended the following in detail. BP Controlled (<130/80) Never done DTaP,Tdap,Td Vaccine(1 - Tdap) Never done (more content not included)... Normal [facility] 06-01-2024 Carcinoembryonic Ag [Mass/Vol] 0.6 ng/mL Normal <=2.9 [facility] Comment on above: Order Comment: Speci men Type: BLOOD SPECIMENOrdering Facility: [facility] Address: [address] [place] [address] Result Comment: Carc inoembryonic antigen test is used as an aid in monitoring response to treatment or recurrence in patients with established colorectal, breast, lung, prostatic, pancreatic, and ovarian carcinomas. Clinical correlation is required. The Carcinoembryonic antigen test was performed using the Juan Pablo [employer] DXI paramagnetic particle chemiluminescent immunoassay method. Results obtained with different assay methods or kits cannot be used interchangeably. Performed By: #### 2 039-6 ####[facility] LABCLIA [id number] [address] [place] Jasmyne 06-01-2024 [facility] ANGELIQUE WYNNE ([id number]) 1970 F Date Time Provider Department 06[facility]01[facility] During your visit today, we recorded the following information about you: Carola Malagon MA 06/01/2024 8:09 AM Signed Patient at lab now, has 6 month appt next week Does she need anything completed? Luis Staley MD 06/01/2024 8:15 AM Signed placed Allergies As of Date: 06/01/2024 Noted Allergy Reaction OXALIPLATIN 02/22/2008 10 - Anaphylaxis Comments: Went to [facility] ER 02/08/08 Date Reviewed: 05/10/2024 Reviewed by: Do Mcclain APRN.VEGETABLE WORKER - Fully Assessed Reason for Visit: Orders [681] Primary Visit Diagnosis:Essential hypertension [I10] Other Visit Diagnoses:Personal history of rectal cancer [Z85.048] Diabetes mellitus without complication (HCC) [E11.9] Order(s):HEMOGLOBIN A1C [QEVMS2G] Order #: [id number] FUTURE CARCINOEMBRYONIC ANTIGEN [SQCEA] Order #: [id number] FUTURE Prescriptions as of 06/01/2024 - CPAP/BIPAP/OTHER Type .CPAPSettings into a note to see current settings/supplies/DME information. - atorvastatin (LIPITOR) 40 mg tablet Take 1 tablet by mouth daily at bedtime. For cholesterol. - lisinopril (ZESTRIL) 20 mg tablet Take 1 tablet by mouth once daily. - CPAP/BIPAP/OTHER Type .CPAPSettings into a note to see current settings/supplies/DME information. - vitamin B complex (B COMPLEX ORAL) Take by mouth once daily. - semaglutide (OZEMPIC) 0.25 mg or 0.5 mg (2 mg/3 mL) pen Inject 0.5 mg subcutaneously one time a week. - Lancets lancets Use with blood glucose test once daily. Insulin Dep? Yes - blood sugar diagnostic test strip Use with blood glucose test once daily, Insulin Dep? No - Blood-Glucose Meter Test One time a day. - Blood Glucose Control, Normal soln Use as directed Problem List As Of Date 06/01/2024 Noted Resolved MIXED HYPERLIPIDEMIA [E78.2] 02/28/2006 Essential [...] [Z85.048] 06/28/2014 Obesity, Class II, BMI 35-39.9 [E66.812] 12/13/2022 Encounter Status:Closed by CAROLA MALAGON on 06/01/24 Normal [facility] HbA1c (Bld)on 06-01-2024 Average glucose Estimated from glycated hemoglobin (Bld) [Mass/Vol] 229 mg/dL Normal [facility] Comment on above: Order Comment: Speci men Type: BLOOD SPECIMENOrdering Facility: [facility] Address: [address] [place] [address] Result Comment: eAG: (Estimated average glucose) is a calculated value from HgbA1c and is sales account representative of the average blood glucose level in the last 2-3 month period. Performed By: #### 5 5454-3 ####[facility] LABCLIA [id number] [address] [id number], [place] [address] [place] HbA1c (Bld) [Mass fraction] 9.6 % High 4.3-5.6 [facility] Comment on above: Order Comment: Speci men Type: BLOOD SPECIMENOrdering Facility: [facility] Address: [address] [place] [address] Result Comment: [place] Diabetes Association guidelines indicate that patients with HgbA1c in the range 5.7-6.4% are at increased risk for development of diabetes, and intervention by lifestyle modification may be beneficial. HgbA1c greater or equal to 6.5% is considered diagnostic of diabetes. Performed By: #### 5 5454-3 ####[facility] LABCLIA [id number] [place] [address] [place] CBC W Auto Differential pane l (Bld)on 04-24-2024 Basophils (Bld) [#/Vol] 0.07 10*3/uL Normal <0.11 [facility] Comment on above: Order Comment: Speci men Type: BLOOD SPECIMENOrdering Facility: [facility] Address: [address] [place] [address] Performed By: #### 5 7021-8 ####[facility] LABCLIA [id number] [place] [address] [place] Basophils/100 WBC (Bld) 1.0 % Normal [facility] Comment on above: Order Comment: Speci men Type: BLOOD SPECIMENOrdering Facility: [facility] Address: [address] [place] [address] Performed By: #### 5 7021-8 ####[facility] LABCLIA [id number] [place] [address] [place] Differential cell count method Nom (Bld) Auto Normal [facility] Comment on above: Order Comment: Hectori men Type: BLOOD SPECIMENOrdering Facility: [facility] Address: [address] [place] [address] Performed By: #### 5 7021-8 ####[facility] LABCLIA [id number] [place] [address] [place] Eosinophils (Bld) [#/Vol] 0.18 10*3/uL Normal <0.46 [facility] Comment on above: Order Comment: Speci men Type: BLOOD SPECIMENOrdering Facility: [facility] Address: [address] [place] [address] Performed By: #### 5 7021-8 ####[facility] LABCLIA [id number] [place] [address] [place] Eosinophils/100 WBC (Bld) 2.5 % Normal [facility] Comment on above: Order Comment: Speci men Type: BLOOD SPECIMENOrdering Facility: [facility] Address: [address] [place] [address] Performed By: #### 5 7021-8 ####[facility] LABIA [id number] [place] [address] [place] Erythrocyte distribution width (RBC) [Ratio] 12.2 % Normal 11.5-15.0 [facility] Comment on above: Order Comment: Speci men Type: BLOOD SPECIMENOrdering Facility: [facility] Address: [address] [place] [address] Performed By: #### 5 7021-8 ####[facility] LABIA [id number] [place] [address] [place] Hematocrit (Bld) [Volume fraction] 42.7 % Normal 36.0-46.0 [facility] Comment on above: Order Comment: Speci men Type: BLOOD SPECIMENOrdering Facility: [facility] Address: [address] [place] [address] Performed By: #### 5 7021-8 ####[facility] LABCLIA [id number] [place] [address] [place] Hemoglobin (Bld) [Mass/Vol] 14.1 g/dL Normal 11.5-15.5 [facility] Comment on above: Order Comment: Speci men Type: BLOOD SPECIMENOrdering Facility: [facility] Address: [address] [place] [address] Performed By: #### 5 7021-8 ####[facility] LABCLIA [id number] [place] [address] [place] Immature granulocytes (Bld) [#/Vol] 0.03 10*3/uL Normal <0.10 [facility] Comment on above: Order Comment: Speci men Type: BLOOD SPECIMENOrdering Facility: [facility] Address: [address] [place] [address] Performed By: #### 5 7021-8 ####[facility] LABCLIA [id number] [place] [address] [place] Immature granulocytes/100 WBC (Bld) 0.4 % Normal [facility] Comment on above: Order Comment: Speci men Type: BLOOD SPECIMENOrdering Facility: [facility] Address: [address] [place] [address] Performed By: #### 5 7021-8 ####[facility] LABCLIA [id number] [place] [address] [place] Lymphocytes (Bld) [#/Vol] 2.17 10*3/uL Normal 1.00-4.00 [facility] Comment on above: Order Comment: Speci men Type: BLOOD SPECIMENOrdering Facility: [facility] Address: [address] [place] [address] Performed By: #### 5 7021-8 ####[facility] LABCLIA [id number] [place] [address] [place] Lymphocytes/100 WBC (Bld) 29.9 % Normal [facility] Comment on above: Order Comment: Speci men Type: BLOOD SPECIMENOrdering Facility: [facility] Address: [address] [place] [address] Performed By: #### 5 7021-8 ####[facility] LABIA [id number] [place] [address] [place] MCH (RBC) [Entitic mass] 28.4 pg Normal 26.0-34.0 [facility] Comment on above: Order Comment: Speci men Type: BLOOD SPECIMENOrdering Facility: [facility] Address: [address] [place] [address] Performed By: #### 5 7021-8 ####[facility] LABIA [id number] [place] [address] [place] MCHC (RBC) [Mass/Vol] 33.0 g/dL Normal 30.5-36.0 [facility] Comment on above: Order Comment: Speci men Type: BLOOD SPECIMENOrdering Facility: [facility] Address: [address] [place] [address] Performed By: #### 5 7021-8 ####[facility] [id number] [place] [address] [place] MCV (RBC) [Entitic vol] 86.1 fL Normal 80.0-100.0 [facility] Comment on above: Order Comment: Speci men Type: BLOOD SPECIMENOrdering Facility: [facility] Address: [address] [place] [address] Performed By: #### 5 7021-8 ####[facility] [id number] [place] [address] [place] Monocytes (Bld) [#/Vol] 0.46 10*3/uL Normal <0.87 [facility] Comment on above: Order Comment: Speci men Type: BLOOD SPECIMENOrdering Facility: [facility] Address: [address] [place] [address] Performed By: #### 5 7021-8 ####[facility] LABIA [id number] [place] [address] [place] Monocytes/100 WBC (Bld) 6.3 % Normal [facility] Comment on above: Order Comment: Speci men Type: BLOOD SPECIMENOrdering Facility: [facility] Address: [address] [place] [address] Performed By: #### 5 7021-8 ####[facility] LABCLIA [id number] [place] [address] [place] Neutrophils (Bld) [#/Vol] 4.35 10*3/uL Normal 1.45-7.50 [facility] Comment on above: Order Comment: Speci men Type: BLOOD SPECIMENOrdering Facility: [facility] Address: [address] [place] [address] Performed By: #### 5 7021-8 ####[facility] LABCLIA [id number] [place] [address] [place] Neutrophils/100 WBC (Bld) 59.9 % Normal [facility] Comment on above: Order Comment: Speci men Type: BLOOD SPECIMENOrdering Facility: [facility] Address: [address] [place] [address] Performed By: #### 5 7021-8 ####[facility] LABCLIA [id number] [place] [address] [place] Nucleated RBC (Bld) [#/Vol] 10*3/uL Normal <0.01 [facility] Comment on above: Order Comment: Speci men Type: BLOOD SPECIMENOrdering Facility: [facility] Address: [address] [place] [address] Performed By: #### 5 7021-8 ####[facility] LABCLIA [id number] [place] [address] [place] Nucleated RBC/100 WBC (Bld) [Ratio] 0.0 /100 WBC Normal [facility] Comment on above: Order Comment: Speci men Type: BLOOD SPECIMENOrdering Facility: [facility] Address: [address] [place] [address] Performed By: #### 5 7021-8 ####[facility] LABCLIA [id number] [address] [address] [place] Platelet mean volume (Bld) [Entitic vol] 11.5 fL Normal 9.0-12.7 [facility] Comment on above: Order Comment: Speci men Type: BLOOD SPECIMENOrdering Facility: [facility] Address: [address] [place] [address] Performed By: #### 5 7021-8 ####[facility] LABIA [id number] [place] [address] [place] Platelets (Bld) [#/Vol] 259 10*3/uL Normal 150-400 [facility] Comment on above: Order Comment: Speci men Type: BLOOD SPECIMENOrdering Facility: [facility] Address: [address] [place] [address] Performed By: #### 5 7021-8 ####[facility] LABIA [id number] [place] [address] [place] RBC (Bld) [#/Vol] 4.96 10*6/uL Normal 3.90-5.20 [facility] Comment on above: Order Comment: Speci men Type: BLOOD SPECIMENOrdering Facility: [facility] Address: [address] [place] [address] Performed By: #### 5 7021-8 ####[facility] LABIA [id number] [place] [address] [place] WBC (Bld) [#/Vol] 7.26 10*3/uL Normal 3.70-11.00 [facility] Comment on above: Order Comment: Speci men Type: BLOOD SPECIMENOrdering Facility: [facility] Address: [address] [place] [address] Performed By: #### 5 7021-8 ####[facility] LABIA [id number] [place] [address] [place] Comprehensive metabolic 2000 panelon 04-24-2024 Albumin [Mass/Vol] 4.1 g/dL Normal 3.9-4.9 [facility] Comment on above: Order Comment: Speci men Type: BLOOD SPECIMENOrdering Facility: [facility] Address: [address] [place] [address] Performed By: #### 2 4323-8 ####[facility] LABCLIA [id number] [place] [address] [place] ALP [Catalytic activity/Vol] 82 U/L Normal 34-123 [facility] Comment on above: Order Comment: Speci men Type: BLOOD SPECIMENOrdering Facility: [facility] Address: [address] [place] [address] Performed By: #### 2 4323-8 ####[facility] LABCLIA [id number] [place] [address] [place] ALT [Catalytic activity/Vol] 33 U/L Normal 7-38 [facility] Comment on above: Order Comment: Speci men Type: BLOOD SPECIMENOrdering Facility: [facility] Address: [address] [place] [address] Performed By: #### 2 4323-8 ####[facility] LABCLIA [id number] [place] [address] [place] Anion gap [Moles/Vol] 12 mmol/L Normal 8-15 [facility] Comment on above: Order Comment: Speci men Type: BLOOD SPECIMENOrdering Facility: [facility] Address: [address] [place] [address] Performed By: #### 2 4323-8 ####[facility] LABCLIA [id number] [place] [address] [place] AST [Catalytic activity/Vol] 26 U/L Normal 13-35 [facility] Comment on above: Order Comment: Speci men Type: BLOOD SPECIMENOrdering Facility: [facility] Address: [address] [place] [address] Performed By: #### 2 4323-8 ####[facility] LABCLIA [id number] [place] [address] [place] Bilirubin [Mass/Vol] 0.4 mg/dL Normal 0.2-1.3 [facility] Comment on above: Order Comment: Speci men Type: BLOOD SPECIMENOrdering Facility: [facility] Address: [address] [place] [address] Performed By: #### 2 4323-8 ####[facility] LABCLIA [id number] [place] [address] [place] Calcium [Mass/Vol] 9.6 mg/dL Normal 8.5-10.2 [facility] Comment on above: Order Comment: Speci men Type: BLOOD SPECIMENOrdering Facility: [facility] Address: [address] [place] [address] Performed By: #### 2 4323-8 ####[facility] LABCLIA [id number] [place] [address] [place] Chloride [Moles/Vol] 103 mmol/L Normal 98-107 [facility] Comment on above: Order Comment: Speci men Type: BLOOD SPECIMENOrdering Facility: [facility] Address: [address] [place] [address] Performed By: #### 2 4323-8 ####[facility] LABCLIA [id number] [place] [address] [place] CO2 [Moles/Vol] 24 mmol/L Normal 22-30 [facility] Comment on above: Order Comment: Speci men Type: BLOOD SPECIMENOrdering Facility: [facility] Address: [address] [place] [address] Performed By: #### 2 4323-8 ####[facility] LABCLIA [id number] [place] [address] [place] Creatinine [Mass/Vol] 0.76 mg/dL Normal 0.58-0.96 [facility] Comment on above: Order Comment: Yolande dodge Type: BLOOD SPECIMENOrdering Facility: [facility] Address: [address] [place] [address] Performed By: #### 2 4323-8 ####[facility] LABCLIA [id number] [place] [address] [place] Creatinine and Glomerular filtration rate.predicted panel (S/P/Bld) 92 mL/min/1.73m??? Normal >=60 [facility] Comment on above: Order Comment: Yolande dodge Type: BLOOD SPECIMENOrdering Facility: [facility] Address: [address] [place] [address] Result Comment: Patricia mated Glomerular Filtration Rate [...] actual GFR. Performed By: #### 2 4323-8 ####[facility] LABCLIA [id number] [place] [address] [place] Glucose [Mass/Vol] 236 mg/dL High 74-99 [facility] Comment on above: Order Comment: Yolande dodge Type: BLOOD SPECIMENOrdering Facility: [facility] Address: [address] [place] [address] Result Comment: The [place] Diabetes Association (ADA) provides guidance for cutoff [...] Standards of Medical Care in Diabetes 2016, [place] Diabetes Association. Diabetes Care. 2016.39(Suppl 1). Performed By: #### 2 4323-8 ####[facility] LABCLIA [id number] [place] [address] [place] Potassium [Moles/Vol] 4.3 mmol/L Normal 3.7-5.1 [facility] Comment on above: Order Comment: Speci men Type: BLOOD SPECIMENOrdering Facility: [facility] Address: [address] [place] [address] Performed By: #### 2 4323-8 ####[facility] LABCLIA [id number] [place] [address] [place] Protein [Mass/Vol] 7.2 g/dL Normal 6.3-8.0 [facility] Comment on above: Order Comment: Speci men Type: BLOOD SPECIMENOrdering Facility: [facility] Address: [address] [place] [address] Performed By: #### 2 4323-8 ####[facility] LABCLIA [id number] [place] [address] [place] Sodium [Moles/Vol] 139 mmol/L Normal 136-144 [facility] Comment on above: Order Comment: Speci men Type: BLOOD SPECIMENOrdering Facility: [facility] Address: [address] [place] [address] Performed By: #### 2 4323-8 ####[facility] LABCLIA [id number] [place] [id number] [place] Urea nitrogen [Mass/Vol] 12 mg/dL Normal 7-21 [facility] Comment on above: Order Comment: Speci men Type: BLOOD SPECIMENOrdering Facility: [facility] Address: [address] [place], [place] [address] Performed By: #### 2 4323-8 ####[facility] LABCLIA [id number] MAXIMO HINOJOSAQUEEN OF THE VALLEY HOSPITALChani [id number] [address] [place] CNCOon 04-22-2024 CNCO Letter Text Normal [facility] CNPNon 04-21-2024 CNPN Telephone ([facility]) RICCIANGELIQUE Silvia ([id number]) 1970 F Date Time Provider Department 04/21/24 BRODERICK ANSARI [facility] During your visit today, we recorded the following information about you: Allergies As of Date: 04/21/2024 Noted Allergy Reaction OXALIPLATIN 02/22/2008 10 - Anaphylaxis Comments: Went to [facility] ER 02/08/08 Date Reviewed: 04/20/2024 Reviewed by: Leonor Maldonado MA - Fully Assessed 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 - atorvastatin (LIPITOR) 40 mg tablet Take 1 tablet by mouth daily at bedtime. For cholesterol. - lisinopril (ZESTRIL) 20 mg tablet Take 1 tablet by mouth once daily. - CPAP/BIPAP/OTHER Type .CPAPSettings into a note to see current settings/supplies/DME information. - vitamin B complex (B COMPLEX ORAL) Take by mouth once daily. - semaglutide (OZEMPIC) 0.25 mg or 0.5 mg (2 mg/3 mL) pen Inject 0.5 mg subcutaneously one time a week. - Lancets lancets Use with blood glucose test once daily. Insulin Dep? Yes - blood sugar diagnostic test strip Use with blood glucose test once daily, Insulin Dep? No - Blood-Glucose Meter Test One time a day. - Blood Glucose Control, Normal soln Use as directed Problem List As Of Date 04/21/2024 Noted Resolved MIXED HYPERLIPIDEMIA [E78.2] 02/28/2006 Essential [...] [Z85.048] 06/28/2014 Obesity, Class II, BMI 35-39.9 [E66.812] 12/13/2022 Encounter Status:Closed by YAW ALAS on 05/11/24 [facility] 04-20-2024 CNOV Office Visit ([id number] ) ANGELIQUE WYNNE ([id number]) 1970 F Date Time Provider Department 04/20/24 2:00 PM BRODERICK ANSARI [id number] During your visit today, we recorded the following information about you: Temperature Pulse Blood pressure Weight 97.5 degrees 90/minute 134/79 84 kg Height 1.499 m RembrandtLeonor carrasquillo [place] 04/20/2024 1:53 PM Signed What is the reason for your visit today? BMI discuss feasibility for LRYGB 03/20/24 s/p extensive crescencio Who is your referring physician? Are you having poor oral intake? NO Have you had unintentional weight loss of 15 lbs/7 Kg in the last 3-6 months? NO Bowels: regular Wound: Temperature: No Drains: No Broderick Ansari MD 04/20/2024 2:54 PM Signed Assessment ESTABLISHED PATIENT INTERVAL HPI: Angelique Wynne is a 54 year old female who was initially seen on 10/21/2023 in the office for evaluation for Bariatric surgery. She has a history of Anterior proctosigmoidectomy, low colorectal anastomosis (2007). Dr Ansari discussed in detail the surgical options including sleeve gastrectomy and Myrtle-en-Y gastric bypass. The patient was a candidate for a gastric bypass and the risks and benefits of the surgery were discussed. Since then, the patient was admitted after she went to the ED in March for small bowel obstruction and underwent a diagnostic laparoscopy with lysis of adhesions. She was discharged home and recovered well, however, she had another painful episode shortly after with negative imaging in the ED. She is here today to discuss the feasibility of the scheduled RYGB given her last surgery for SBO. She has no active concerns. No longer on blood thinners. Denies any abdominal surgeries other than the proctosigmoidectomy. PAST MEDICAL HISTORY Diagnosis Date Acute gastritis [...] COLONOSCOPY FLX DX W/COLLJ SPEC WHEN PFRMD 5/4/9 clean anastamosis COLONOSCOPY FLX DX W/COLLJ SPEC [...] 2004 needle biopsy of the left breast 03/20/2024 Operative Report PHYSICAL EXAMINATION: BP 134/79 Pulse 90 Temp 36.4 ?C (97.5 ?F) (Temporal) Ht 149.9 cm (4' 11.02) Wt 84 kg (185 lb 3 oz) LMP 09/19/2017 SpO2 96% BMI 37.38 kg/m? General Appearance: Well appearing, alert, in no acute distress, well-hydrated, well nourished.. Skin: Skin color, texture, turgor normal, no suspicious rashes or lesions. Abdomen: Normal abdominal exam, Abdomen soft, non-tender. Bowel sounds normal. No masses, organomegaly. IMPRESSION: Morbid obesity PLAN: Patient recently underwent a diagnostic lap and extensive lysis of adhesions. I have discussed this with her general surgeon who noted significant adhesions of the small intestine. Adhesions were cleared to the point of bowel obstruction but she still has a lot of adhesions. I have discussed this with Tana. We have decided to proceed sleeve. If she does need conversion to open, we will perform an open gastric bypass. She does not have any premorbid acid reflux and is not on any medications for the same. Proceed with a sleeve gastrectomy, possible open gastric bypass Risk-benefit and alternatives of surgery discussed I spent a total of 20 minutes on the date of the service which included preparing to see the patient, [id number] patient care, completing clinical documentation, obtaining and/or reviewing separately obtained history, performing a medically appropriate examination, counseling and educating the patient/family/caregiv er, ordering medications, tests, or procedures, communicating with other HCPs (not separately reported), independently interpreting results (not separately reported), communicating results to the patient/family/caregiv er, and care coordination (not separately reported). Broderick Ansari MD Referring Provider: BRODERICK ANSARI [[id number]] Allergies As of Date: 04/20/2024 Noted Allergy Reaction (more content not included)... Normal [facility] Surgery Visit Reporton 04-06 Surgery Visit Report [facility] [address] [place] [address] OFFICE VISIT Date of Service: 04/06/24 MR#: [id number] Acct: [id number] Name: ANGELIQUE WYNNE Rep #: [id number] : 1970 Provider: Dr. Connie espinoza MD Age/Sex: 54/F Location: [facility] Status: Signed Intake Vital Signs 03/20/24 16:58 03/29/24 21:07 04/06/24 13:10 Height 5 ft 5 ft Weight: 188 lb Intake Visit Reasons: Small bowel obstruction DOS 03/20 Chief Complaint: small bowel obstruction DOS 03/20 Is patient in pain?: No Allergies oxaliplatin Allergy (Verified 04/06/24 13:10) Anaphylaxis Medications ???Medication ???Instructions ???Recorded ???Confirmed ???Type lisinopril 10 mg tablet 10 mg PO DAILY #30 tabs 04/29/17 03/20/24 Rx atorvastatin 40 mg tablet 40 mg PO QHS cholesterol 03/19/24 03/20/24 History semaglutide 0.25 mg or 0.5 mg (2 0.5 mg subcut QWEEK weight loss 03/19/24 03/20/24 History mg/3 mL) subcutaneous pen injector (Ozempic) Subjective Details: 54-year-old female presents status post laparoscopic lysis of adhesions due to small bowel obstruction. Patient did have a time postoperatively that she had increased left-sided abdominal pain did go to the ER had a CT of the abdomen pelvis which did not show any signs of obstruction. Patient states she has been doing well tolerating diet and having bowel function. Objective Details: Abdomen: Soft, nondistended, nontender, incisions healing well clean dry and intact Coding Level of Care Code Global Post Op Diagnoses S/P laparoscopy with lysis of adhesions Z98.890 [facility] Medical History (Updated 03/30/24 @ 00:02 by Background Joyce) Complete small bowel obstruction Obesity Diabetes mellitus, type 2 HLD (hyperlipidemia) Hypertension Colorectal cancer Surgical History (Updated 04/07/24 @ 11:[address] Connie Hendrix MD) S/P laparoscopy with lysis of adhesions History of colon resection Family History Father Diabetes Hypertension ETOH abuse Family History adopted Social History household members: spouse Smoking Status: Never smoker alcohol intake: never substance use type: does not use Assessment and Plan (No Qualifiers) Assessment and Plan (1) S/P laparoscopy with lysis of adhesions: Status: Acute Plan Patient is doing well tolerating diet having bowel function. Patient incisions healing well. Follow-up as needed. Patient is agreeable plan. Patient is currently being evaluated for possible gastric bypass. Connie Hendrix M.D. Pager: [phone] [facility] [address] [place] [address], [address] [place] [address] Office: [phone] 04/07/24 8174 Date Connie Hendrix MD Cosigner Signature: Date (if applicable) CC: Dr. Luis Staley MD Normal [facility] CBC-Complete Blood Cnt No Di ffon 03-30-2024 Erythrocyte distribution width (RBC) [Ratio] 12.4 % Normal 11.6-14.6 [facility] Comment on above: Performed By: #### L 100.0100, L500.4050, L501.2450 #### [facility] [address] [place], [address] Hematocrit (Bld) [Volume fraction] 41.8 % Normal 37-47 [facility] Comment on above: Performed By: #### L 100.0100, L500.4050, L501.2450 #### [facility] [address] [place], [address] Hemoglobin (Bld) [Mass/Vol] 13.6 g/dL Normal 12.0-15.0 [facility] Comment on above: Performed By: #### L 100.0100, L500.4050, L501.2450 #### [facility] [address] [place], [address] MCH (RBC) [Entitic mass] 28.1 pg Normal 27.0-32.0 [facility] Comment on above: Performed By: #### L 100.0100, L500.4050, L501.2450 #### [facility] [address] [place], [address] MCHC (RBC) [Mass/Vol] 32.5 g/dL Normal 32-36 [facility] Comment on above: Performed By: #### L 100.0100, L500.4050, L501.2450 #### [facility] [address] [place], [address] MCV (RBC) [Entitic vol] 86.4 fL Normal 81-99 [facility] Comment on above: Performed By: #### L 100.0100, L500.4050, L501.2450 #### [facility] [address] [place], [address] Platelet mean volume (Bld) [Entitic vol] 11.7 fL Normal 6.2-12.0 [facility] Comment on above: Performed By: #### L 100.0100, L500.4050, L501.2450 #### [facility] [address] [place], [address] Platelets (Bld) [#/Vol] 355 10*3/uL Normal 150-450 [facility] Comment on above: Performed By: #### L 100.0100, L500.4050, L501.2450 #### [facility] [address] [place], [address] RBC (Bld) [#/Vol] 4.84 10*6/uL Normal 4.2-5.4 [facility] Comment on above: Performed By: #### L 100.0100, L500.4050, L501.2450 #### [facility] [address] [place], [address] RDW SD 38.9 fl Normal 35.1-43.9 [facility] Comment on above: Performed By: #### L 100.0100, L500.4050, L501.2450 #### [facility] [address] [place], [address] WBC (Bld) [#/Vol] 10.3 10*3/uL Normal 4.4-11.0 [facility] Comment on above: Performed By: #### L 100.0100, L500.4050, L501.2450 #### [facility] [address] [place], [address] Abdomen/Pelvis WITH Contrast on 03-29-2024 Abdomen/Pelvis WITH Contrast [facility] Imaging Services [address] [place] [address] Abdomen/Pelvis WITH Contrast MR#: [id number] Acct: [id number] Name: ANGELIQUE WYNNE Rep #: [id number] : 1970 F 54 From: Buck Lui PCP: Dr. Luis Staley MD Status: [facility] ER Study: Abdomen/Pelvis WITH Contrast Date of Exam: Exam# [id number] Ordering Dr: Dontrell Dixon DO [id number] STUDY: CT ABDOMEN AND PELVIS WITH CONTRAST REASON FOR EXAM: Female, 54 years old. Abdominal pain, rule out small bowel obstruction -- IV PO Contrast RADIATION DOSAGE (If Supplied By Facility): CTDIvol = ( 20.06 ) mGy, DLP = ( 1211.73 ) mGycm TECHNIQUE: Transaxial images were obtained from the dome of the diaphragm to the symphysis pubis without oral contrast. Oral and amp; IV Gastrografin and amp; 100mL Isovue-370 was administered. Sagittal and coronal images were reconstructed. Individualized dose optimization techniques were used for this CT. The protocol utilizes one or more of the following dose reduction techniques: automated exposure control, adjustment of mA and/or kV according to patient size,and/or use of iterative reconstruction technique. COMPARISON: March 19, 2024 CT abdomen and pelvis FINDINGS: The visualized lung bases are unremarkable. The visualized portions of the heart are within normal limits. Normal liver. Normal gallbladder and extrahepatic biliary system. Normal spleen. Normal pancreas. Normal bilateral adrenal glands. Normal right kidney. Normal left kidney. Normal visualized stomach. Oral contrast noted in the proximal small bowel. It appears less distended. Rectosigmoid anastomotic sutures again noted. The appendix is visualized and appears normal. Calcified plaque along the aorta and its branches. Normal inferior vena cava. Normal retroperitoneum. Normal urinary bladder. Uterus normal. New small ill-defined midline subcutaneous ventral induration. Normal osseous structures. CT/Abdomen/Pelvis WITH Contrast IMPRESSION: New ventral midline subcutaneous induration. No significant well-formed fluid collection. Previous small bowel obstruction appears resolved. Electronically Signed: Buck Cee MD at 1:22 EDT Reading Location ID and State: [address] [place] [address] Tel , Service support , CC: Dr. Dontrell Dixon DO; Dr. Luis Staley MD Advertising Operations Coordinator: Signed Normal [facility] Basic Metabolic Profile (BMP )on 03-29-2024 BUN/CRE 11.6 RATIO Normal 10-20 [facility] Comment on above: Performed By: #### L 501.080 #### [facility] [address] [place], [address] CA,Total 9.0 mg/dL Normal 8.5-10.1 [facility] Comment on above: Performed By: #### L 501.080 #### [facility] [address] [place], [address] Chloride [Moles/Vol] 101 mmol/L Normal 98-107 [facility] Comment on above: Performed By: #### L 501.080 #### [facility] [address] [place], [address] CO2 [Moles/Vol] 31.0 mmol/L Normal 21.0-32.0 [facility] Comment on above: Performed By: #### L 501.080 #### [facility] [address] [place], [address] Creatinine [Mass/Vol] 1.38 mg/dL High 0.55-1.02 [facility] Comment on above: Result Comment: The validity of the calculated GFR GFRAA in patients over 70 years has not been determined. Clinical correlation is essential. Performed By: #### L 501.080 #### [facility] [address] [place], [address] ECRCL 43.89 ml/min Normal [facility] Comment on above: Performed By: #### L 501.080 #### [facility] [address] [place], [address] EST GFR - AA 51 mL/min Low >60 [facility] Comment on above: Result Comment: Afri can [place] GFR Calc Performed By: #### L 501.080 #### [facility] [address] [place], [address] GAP 6 Normal 5-15 [facility] Comment on above: Performed By: #### L 501.080 #### [facility] [address] [place], [address] GFR/1.73 sq M.predicted among non-blacks MDRD (S/P/Bld) [Vol rate/Area] 42 mL/min/{1.73_m2} Low >60 [facility] Comment on above: Result Comment: Non- GFR Calc Performed By: #### L 501.080 #### [facility] [address] [place], [address] Glucose [Mass/Vol] 312 mg/dL High 74-106 [facility] Comment on above: Result Comment: Gluc ose result greater than or equal to 200 mg/dL suggests DIABETES MELLITUS per A.D.A. criteria. Performed By: #### L 501.080 #### [facility] [address] [place], [address] Potassium [Moles/Vol] 4.2 mmol/L Normal 3.5-5.1 [facility] Comment on above: Performed By: #### L 501.080 #### [facility] [address] [place], [address] Sodium [Moles/Vol] 138 mmol/L Normal 136-145 [facility] Comment on above: Performed By: #### L 501.080 #### [facility] [address] [place], [address] Urea nitrogen [Mass/Vol] 16 mg/dL Normal 7-18 [facility] Comment on above: Performed By: #### L 501.080 #### [facility] [address] [place], [address] Comprehensive Metabolic Prof ilon 03-29-2024 Albumin [Mass/Vol] 3.5 g/dL Normal 3.2-5.0 [facility] Comment on above: Performed By: #### L 501.080 #### [facility] [address] [place], [address] Albumin/Globulin [Mass ratio] 0.9 {ratio} Normal 0.9-2.4 [facility] Comment on above: Performed By: #### L 501.080 #### [facility] [address] [place], [address] ALK P 87 U/L Normal 45-117 [facility] Comment on above: Performed By: #### L 501.080 #### [facility] [address] [place], [address] ALT [Catalytic activity/Vol] 43 U/L Normal 13-56 [facility] Comment on above: Performed By: #### L 501.080 #### [facility] [address] [place], [address] AST [Catalytic activity/Vol] 16 U/L Normal 15-37 [facility] Comment on above: Performed By: #### L 501.080 #### [facility] [address] [place], [address] Bilirubin [Mass/Vol] 0.30 mg/dL Normal 0.20-1.00 [facility] Comment on above: Result Comment: For patients on eltrombopag therapy, use of Dimension Mccleary TBIL is not recommended. Performed By: #### L 501.080 #### [facility] [address] [place], [address] Globulin (S) [Mass/Vol] 3.7 g/dL Normal 2.2-4.2 [facility] Comment on above: Performed By: #### L 501.080 #### [facility] [address] [place], [address] T PROT 7.2 g/dL Normal 6.4-8.2 [facility] Comment on above: Performed By: #### L 501.080 #### [facility] [address] [place], [address] Emergency Department Summary on 03-29-2024 Emergency Department Summary [facility] Medical Records Department [address] [place] [address] Emergency Department Summary 03/29/24 MR#: [id number] Acct: [id number] Name: ANGELIQUE WYNNE Rep #: [id number] : 1970 54 From: Dontrell Dixon DO PCP: Dr. Luis Staley MD Status:REG ER Location: ED HPI History of Present Illness Chief Complaint: Abd Pain PFSH PFSH Medical History (Updated 03/30/24 @ 00:02 by Background Joyce) Complete small bowel obstruction Obesity Diabetes mellitus, type 2 HLD (hyperlipidemia) Hypertension Colorectal cancer Home Medications ???Medication ???Instructions ???Recorded ???Last Taken ???Type lisinopril 10 mg tablet 10 mg PO DAILY #30 tabs 04/29/17 03/18/24 Rx atorvastatin 40 mg tablet 40 mg PO QHS cholesterol 03/19/24 03/18/24 History semaglutide 0.25 mg or 0.5 mg (2 0.5 mg subcut QWEEK weight loss 03/19/24 03/15/24 History mg/3 mL) subcutaneous pen injector (Ozempic) oxycodone 5 mg capsule 5 mg PO Q6H PRN pain 3 days #10 03/22/24 Unknown Rx caps Allergy/AdvReac Type Severity Reaction Status Date / Time oxaliplatin Allergy Anaphylaxis Verified 03/29/24 21:09 Family History Father Diabetes Hypertension ETOH abuse Family History adopted Surgical History (Updated 03/30/24 @ 00:02 by Background Joyce) S/P laparoscopy with lysis of adhesions History of colon resection Social History household members: spouse Smoking Status: Never smoker alcohol intake: never substance use type: does not use EXAM Physical Exam Const Vital Signs: 03/29/24 21:07 03/29/24 23:07 03/30/24 02:38 Temperature 97.7 F L Temperature Source Oral Pulse Rate 81 71 70 Respiratory Rate 16 16 16 Blood Pressure 153/80 H 146/77 H 126/65 H Blood Pressure Mean 104 100 85 Pulse Ox 98 98 96 Oxygen Delivery Method Room Air Room Air [facility] Narrative Medical decision making narrative: HISTORY OF PRESENT ILLNESS: 54-year female presents abdominal pain after recent surgery. Notes nausea and diarrhea. No fever. No urinary complaints REVIEW OF SYSTEMS: Pertinent positives: Abdominal pain, nausea and diarrhea Pertinent negatives: Fever, chest pain, vomit PHYSICAL EXAM: Nursing triage notes reviewed, Vital signs reviewed Constitutional: please see mdm HENT: MMM Eyes: Pupils equal round and reactive to light, Extraocular muscles intact Neck: No stridor, no JVD, full neck ROM Lungs: Clear to auscultation, No wheezing or rales. No increased work of breathing, no conversational dyspnea, no accessory muscle use, no nasal flaring. No respiratory distress noted Heart: Regular rate and rhythm, No murmurs, No rubs and No gallops, 2+ distal pulses (radial, femoral, posterior tibial) in all extremities Abdomen: Soft, t diffuse tenderness, slight distention but no rigidity, rebound or guarding, no obvious peritoneal signs, no palpable pulsatile abdominal masses, no auscultated abdominal bruit : No CVAT Extremities: No edema Neuro: No focal neurological deficits, cranial nerves II through XII intact, 5/5 strength in all extremities. Intact sensation to light touch in all extremities, 2+ reflexes bilateral patella tendons. Normal gait. No ataxia. Skin: No rash or lesions noted MEDICAL DECISION MAKING: Chief Complaint: Abdominal pain External records reviewed: Underwent surgery on 03/20/2024 for bowel obstruction Factors affecting care: n bowel obstruction, hypertension, hyperlipidemia Social determinants of health: none History obtained from others: Consults: General Surgery (Dr. Hendrix)???discussed patient's recent surgery discussed recommendation for obtaining a CT scan with IV and p.o. contrast [facility] Narrative: Patient was initially hemodynamically stable, afebrile and nontoxic-appearing. Exam with slight distention but no peritoneal signs I considered the following differential diagnosis: Obstruction, perforation, pancreatitis ALL IMAGES (IF OBTAINED) HAVE BEEN PERSONALLY REVIEWED AND INTERPRETED BY MYSELF. CT scan of the abdomen and pelvis with IV and p.o. contrast shows no evidence obvious obstruction CBC with no leukocytosis, no anemia thrombocytopenia BMP with renal insufficiency suggestive of dehydration otherwise no signs of metabolic acidosis, endorgan hypoperfusion, LFTs show no evidence of hepatobiliary pathology. Lipase is wnl indicating no pancreatic inflammation. No urinary complaints means no urinalysis indicate Repeat abdominal exam was benign. Patient felt better. Will discharge with Zofran. Discussed with surgeon Dr. Hendrix who agreed the patient is appropriate discharge further recommendations. No acute s surgical denice (more content not included)... Normal [facility] Lipaseon 03-29-2024 Lipase [Catalytic activity/Vol] 62 U/L Normal 13-75 [facility] Comment on above: Result Comment: [place] oleary note: LIPASE revised reference range effective 22. New Lipase methodology. Expected to produce lower values than the previous assay method. NEW Reference Range: 13 - 75 U/L Performed By: #### L 501.080 #### [facility] [address] [place], [address] Bedside Glucoseon 03-22-2024 FINGERSTICK GLU 207 mg/dL High 74-106 [facility] Comment on above: Result Comment: MARCEL GEMENT OF PATIENT CARE PER NURSING PROTOCOL Performed By: #### L 100.0100, L500.4050, L501.2450 #### [facility] [address] [place], [address] FINGERSTICK GLU 177 mg/dL High 74-106 [facility] Comment on above: Result Comment: MARCEL GEMENT OF PATIENT CARE PER NURSING PROTOCOL Performed By: #### L 501.080 #### [facility] [address] [place], [address] FINGERSTICK GLU 178 mg/dL High 74-106 [facility] Comment on above: Result Comment: MARCEL GEMENT OF PATIENT CARE PER NURSING PROTOCOL Performed By: #### L 501.080 #### [facility] [address] [place], [address] CBC W/Diff, Automatedon 10-2 Absolute Lymph 1.74 X10 3/uL Normal 0.83-4.51 [facility] Comment on above: Performed By: #### L 100.0100, L500.4050, L501.2450 #### [facility] [address] [place], [address] Absolute Neut 4.3 X10 3/uL Normal 2.0-7.7 [facility] Comment on above: Performed By: #### L 100.0100, L500.4050, L501.2450 #### [facility] [address] [place], [address] Basophils/100 WBC (Bld) 0.6 % Normal 0-1 [facility] Comment on above: Performed By: #### L 100.0100, L500.4050, L501.2450 #### [facility] [address] [place], [address] Eosinophils/100 WBC (Bld) 3.3 % Normal 0-5 [facility] Comment on above: Performed By: #### L 100.0100, L500.4050, L501.2450 #### [facility] [address] [place], [address] Erythrocyte distribution width (RBC) [Ratio] 12.3 % Normal 11.6-14.6 [facility] Comment on above: Performed By: #### L 100.0100, L500.4050, L501.2450 #### [facility] [address] [place], [address] Hematocrit (Bld) [Volume fraction] 36.8 % Low 37-47 [facility] Comment on above: Performed By: #### L 100.0100, L500.4050, L501.2450 #### [facility] [address] [place], [address] Hemoglobin (Bld) [Mass/Vol] 11.8 g/dL Low 12.0-15.0 [facility] Comment on above: Performed By: #### L 100.0100, L500.4050, L501.2450 #### [facility] [address] [place], [address] IG% 0.600 Normal 0.0-0.9 [facility] Comment on above: Result Comment: IG% - Immature Granulocytes (promyelocytes, myelocytes and metamyelocytes) > 1% indicates that a LEFT SHIFT is Present. Performed By: #### L 100.0100, L500.4050, L501.2450 #### [facility] [address] [place], [address] Lymphocytes/100 WBC (Bld) 25.8 % Normal 19-41 [facility] Comment on above: Performed By: #### L 100.0100, L500.4050, L501.2450 #### [facility] [address] [place], [address] MCH (RBC) [Entitic mass] 28.2 pg Normal 27.0-32.0 [facility] Comment on above: Performed By: #### L 100.0100, L500.4050, L501.2450 #### [facility] [address] [place], [address] MCHC (RBC) [Mass/Vol] 32.1 g/dL Normal 32-36 [facility] Comment on above: Performed By: #### L 100.0100, L500.4050, L501.2450 #### [facility] [address] [place], [address] MCV (RBC) [Entitic vol] 87.8 fL Normal 81-99 [facility] Comment on above: Performed By: #### L 100.0100, L500.4050, L501.2450 #### [facility] [facility] [address] [place], [address] Monocytes/100 WBC (Bld) 6.1 % Normal 0-10 [facility] Comment on above: Performed By: #### L 100.0100, L500.4050, L501.2450 #### [facility] [address] [place], [address] Neutrophils/100 WBC (Bld) 63.6 % Normal 47-70 [facility] Comment on above: Performed By: #### L 100.0100, L500.4050, L501.2450 #### [facility] [address] [place], [address] Nucleated RBC (Bld) [#/Vol] 0 10*3/uL Normal 0-5 [facility] Comment on above: Performed By: #### L 100.0100, L500.4050, L501.2450 #### [facility] [address] [place], [address] Platelet mean volume (Bld) [Entitic vol] 10.9 fL Normal 6.2-12.0 [facility] Comment on above: Performed By: #### L 100.0100, L500.4050, L501.2450 #### [facility] [address] [place], [address] Platelets (Bld) [#/Vol] 240 10*3/uL Normal 150-450 [facility] Comment on above: Performed By: #### L 100.0100, L500.4050, L501.2450 #### [facility] [address] [place], [address] RBC (Bld) [#/Vol] 4.19 10*6/uL Low 4.2-5.4 [facility] Comment on above: Performed By: #### L 100.0100, L500.4050, L501.2450 #### [facility] [address] [place], [address] RDW SD 39.2 fl Normal 35.1-43.9 [facility] Comment on above: Performed By: #### L 100.0100, L500.4050, L501.2450 #### [facility] [address] [place], [address] WBC (Bld) [#/Vol] 6.7 10*3/uL Normal 4.4-11.0 [facility] Comment on above: Performed By: #### L 100.0100, L500.4050, L501.2450 #### [facility] [address] [place], [address] Discharge Instructionon 03-03 Discharge Instruction [facility] Medical Records Department [address] [place] [address] Instructions for Home/Discharge Instructions 03/22/24 0703 MR#: [id number] Acct: [id number] Name: ANGELIQUE WYNNE Rep #: [id number] : 1970 54 From: Connie Hendrix MD PCP: Dr. Luis Staley MD Status:ADM IN Discharge Instructions Diet Discharge Diet: - (Transitional/low residual-remove peels x 1 week) Activity Discharge Activity: May Not Drive (while taking narcotic pain medications.) May shower in (days): 1 Lifting Restrictions: no lifting >20 lbs x 2 wks, no strenuous exercise for 4 wks Dressing / Incision Call your doctor if your incision/area has: Continuous Slow Oozing, Sudden Increased Bleeding, Increased Pain/ Swelling, Increased Redness, Foul Smelling Discharge and Swelling at the incision site Call your doctor if you observe: Fever of 101 or Higher Remove Dressing in: 2 days Cleanse incision/area with: Soap Water Additional Dressing/Incision Instructions:: Steri-Strips will fall off in 7 to 10 days, if they do not fall off okay to remove after 10 days. Follow Up Care Please Follow Up With: Connie Hendrix MD When: Call the office for a follow-up appointment 2 weeks; after 5 PM and on the weekends call [phone] with any concerns. Test Results: Test results from this visit will be discussed in further detail at your follow-up appointment, if applicable. Discharge Plan Admission Admit Date/Time: 03/20/24 01:18 Attending Provider: Merle Moore Primary Care Provider: Luis Staley Consulting Providers: Connie Hendrix; Shira Hernandez; Curt Melara Discharge Orders/Prescriptions Prescriptions: New oxycodone 5 mg capsule 5 mg PO Q6H PRN (Reason: pain) 3 Days Qty: 10 0RF No Action lisinopril 10 MG tablet 10 mg PO DAILY Qty: 30 1RF atorvastatin 40 mg tablet 40 mg PO QHS Ozempic 0.25 mg or 0.5 mg (2 mg/3 mL) pen injector 0.5 mg subcut QWEEK Rx Instructions: Friday Referrals / Follow Up: Luis Staley MD [Primary Care Provider] - 03/22/24 0705 Connie Hendrix MD CC: Dr. Shira Hernandez MD; Dr. Curt Melara DO; Dr. Connie Hendrix MD; Dr. Luis Staley MD Signed Normal [facility] Basic Metabolic Profile (BMP )on 03-21-2024 BUN/CRE 15.2 RATIO Normal 03-21 [facility] Comment on above: Performed By: #### L 501.080 #### [facility] [address] [place], [place], [id number] [place],Total 8.7 mg/dL Normal 8.5-10.1 [facility] Comment on above: Performed By: #### L 501.080 #### [facility] [address] [place], [address] Chloride [Moles/Vol] 106 mmol/L Normal 98-107 [facility] Comment on above: Performed By: #### L 501.080 #### [facility] [address] [place], [address] CO2 [Moles/Vol] 28.0 mmol/L Normal 21.0-32.0 [facility] Comment on above: Performed By: #### L 501.080 #### [facility] [address] [place], [address] Creatinine [Mass/Vol] 0.86 mg/dL Normal 0.55-1.02 [facility] Comment on above: Result Comment: The validity of the calculated GFR GFRAA in patients over 70 years has not been determined. Clinical correlation is essential. Performed By: #### L 501.080 #### [facility] [address] [place], [address] ECRCL 72.30 ml/min Normal [facility] Comment on above: Performed By: #### L 501.080 #### [facility] [address] [place], [address] EST GFR - AA 88 mL/min Normal >60 [facility] Comment on above: Result Comment: Afri can [place] GFR Calc Performed By: #### L 501.080 #### [facility] [address] [place], [address] GAP 6 Normal 5-15 [facility] Comment on above: Performed By: #### L 501.080 #### [facility] [address] [place], [address] GFR/1.73 sq M.predicted among non-blacks MDRD (S/P/Bld) [Vol rate/Area] 73 mL/min/{1.73_m2} Normal >60 [facility] Comment on above: Result Comment: Non- GFR Calc Performed By: #### L 501.080 #### [facility] [address] [place], [address] Glucose [Mass/Vol] 174 mg/dL High 74-106 [facility] Comment on above: Result Comment: Fast ing Glucose result greater than or equal to 126 mg/dL suggests DIABETES MELLITUS per A.D.A. criteria. Performed By: #### L 501.080 #### [facility] [address] [place], [address] Potassium [Moles/Vol] 3.6 mmol/L Normal 3.5-5.1 [facility] Comment on above: Performed By: #### L 501.080 #### [facility] [address] [place], [address] Sodium [Moles/Vol] 139 mmol/L Normal 136-145 [facility] Comment on above: Performed By: #### L 501.080 #### [facility] [address] [place], [address] Urea nitrogen [Mass/Vol] 13 mg/dL Normal 7-18 [facility] Comment on above: Performed By: #### L 501.080 #### [facility] [address] [place], [address] Bedside Glucoseon 03-21-2024 FINGERSTICK GLU 276 mg/dL [address] [facility] Comment on above: Result Comment: MARCEL GEMENT OF PATIENT CARE PER NURSING PROTOCOL Performed By: #### L 501.080 #### [facility] [address] [place], [address] FINGERSTICK GLU 169 mg/dL [address] Comment on above: Result Comment: MARCEL GEMENT OF PATIENT CARE PER NURSING PROTOCOL Performed By: #### L 501.080 #### [facility] [address] [place], [address] FINGERSTICK GLU 137 mg/dL High -106 [facility] Comment on above: Result Comment: MARCEL GEMENT OF PATIENT CARE PER NURSING PROTOCOL Performed By: #### L 501.080 #### [facility] [address] [place], [address] CBC W/Diff, Automatedon 10-2 0-2024 Absolute Lymph 1.77 X10 3/uL Normal 0.83-4.51 [facility] Comment on above: Performed By: #### L 100.0100 #### [facility] [address] [place], [address] Absolute Neut 9.0 X10 3/uL High 2.0-7.7 [facility] Comment on above: Performed By: #### L 100.0100 #### [facility] [address] [place], [address] Basophils/100 WBC (Bld) 0.4 % Normal 0-1 [facility] Comment on above: Performed By: #### L 100.0100 #### [facility] [address] [place], [address] Eosinophils/100 WBC (Bld) 1.0 % Normal 0-5 [facility] Comment on above: Performed By: #### L 100.0100 #### [facility] [address] [place], [address] Erythrocyte distribution width (RBC) [Ratio] 12.5 % Normal 11.6-14.6 [facility] Comment on above: Performed By: #### L 100.0100 #### [facility] [address] [place], [address] Hematocrit (Bld) [Volume fraction] 40.3 % Normal 37-47 [facility] Comment on above: Performed By: #### L 100.0100 #### [facility] [address] [place], [address] Hemoglobin (Bld) [Mass/Vol] 12.8 g/dL Normal 12.0-15.0 [facility] Comment on above: Performed By: #### L 100.0100 #### [facility] [address] [place], [address] IG% 0.600 Normal 0.0-0.9 [facility] Comment on above: Result Comment: IG% - Immature Granulocytes (promyelocytes, myelocytes and metamyelocytes) > 1% indicates that a LEFT SHIFT is Present. Performed By: #### L 100.0100 #### [facility] [address] [place], [address] Lymphocytes/100 WBC (Bld) 15.2 % Low 19-41 [facility] Comment on above: Performed By: #### L 100.0100 #### [facility] [address] [place], [address] MCH (RBC) [Entitic mass] 28.1 pg Normal 27.0-32.0 [facility] Comment on above: Performed By: #### L 100.0100 #### [facility] [address] [place], [address] MCHC (RBC) [Mass/Vol] 31.8 g/dL Low 32-36 [facility] Comment on above: Performed By: #### L 100.0100 #### [facility] [address] [place], [address] MCV (RBC) [Entitic vol] 88.6 fL Normal 81-99 [facility] Comment on above: Performed By: #### L 100.0100 #### [facility] [address] [place], [address] Monocytes/100 WBC (Bld) 5.6 % Normal 0-10 [facility] Comment on above: Performed By: #### L 100.0100 #### [facility] [address] [place], [address] Neutrophils/100 WBC (Bld) 77.2 % High 47-70 [facility] Comment on above: Performed By: #### L 100.0100 #### [facility] [address] [place], [address] Nucleated RBC (Bld) [#/Vol] 0 10*3/uL Normal 0-5 [facility] Comment on above: Performed By: #### L 100.0100 #### [facility] [address] [place], [address] Platelet mean volume (Bld) [Entitic vol] 10.4 fL Normal 6.2-12.0 [facility] Comment on above: Performed By: #### L 100.0100 #### [facility] [address] [place], [address] Platelets (Bld) [#/Vol] 263 10*3/uL Normal 150-450 [facility] Comment on above: Performed By: #### L 100.0100 #### [facility] [address] [place], [address] RBC (Bld) [#/Vol] 4.55 10*6/uL Normal 4.2-5.4 [facility] Comment on above: Performed By: #### L 100.0100 #### [facility] [address] [place], [address] RDW SD 40.9 fl Normal 35.1-43.9 [facility] Comment on above: Performed By: #### L 100.0100 #### [facility] [address] [place], [address] WBC (Bld) [#/Vol] 11.6 10*3/uL High 4.4-11.0 [facility] Comment on above: Performed By: #### L 100.0100 #### [facility] [address] [place], [address] Abdomen Single View (Portabl e)on 03-20-2024 Abdomen Single View (Portable) [facility] Imaging Services [address] [place] [address] Abdomen Single View (Portable) MR#: [id number] Acct: [id number] Name: ANGELIQUE WYNNE Rep #: [id number] : 1970 F 54 From: Naila das MD PCP: Dr. Luis Staley MD Status: ADM IN Study: Abdomen Single View (Portable) Date of Exam: Exam# [id number] Ordering Dr: Shira Hernandez [place] [id number] HISTORY: Bowel obstruction. TECHNIQUE: XR Abdomen 1 View. COMPARISON: CT prior day. FINDINGS: BOWEL GAS PATTERN: Mildly dilated small bowel in the left lower quadrant. Scattered stool and air in the colon down to the level of the rectum. FREE AIR: Not assessed on supine view. CALCIFICATIONS: Vascular calcifications observed. BONES: Unremarkable. SOFT TISSUES: Residual contrast in the bladder. RAD/Abdomen Single View (Portable) IMPRESSION: Mildly dilated small bowel in the left abdomen, compatible with the history of bowel obstruction. Electronically Signed: Naila Foley MD at 9:24 EDT , CC: Dr. Shira Hernandez MD; Dr. Luis Staley MD Advertising Operations Coordinator: Signed Normal [facility] Bedside Glucoseon 03-20-2024 FINGERSTICK GLU 140 mg/dL High 74-106 [facility] Comment on above: Result Comment: MARCEL GEMENT OF PATIENT CARE PER NURSING PROTOCOL Performed By: #### L 501.080 #### [facility] [address] [place], [address] FINGERSTICK GLU 257 mg/dL High 74-106 [facility] Comment on above: Result Comment: MARCEL GEMENT OF PATIENT CARE PER NURSING PROTOCOL Performed By: #### L 501.080 #### [facility] [address] [place], [address] FINGERSTICK GLU 268 mg/dL High 74-106 [facility] Comment on above: Result Comment: MARCEL TERRELLENT OF PATIENT CARE PER NURSING PROTOCOL Performed By: #### L 501.080 #### [facility] [address] [place], [address] FINGERSTICK GLU 204 mg/dL High 74-106 [facility] Comment on above: Result Comment: MARCEL TERRELLENT OF PATIENT CARE PER NURSING PROTOCOL Performed By: #### L 100.0100, L500.4050, L501.2450 #### [facility] [address] [place], [address] CBC W/Diff, Automatedon 10- Absolute Lymph 3.00 X10 3/uL Normal 0.83-4.51 [facility] Comment on above: Performed By: #### L 100.0100 #### [facility] [address] [place], [address] Absolute Neut 8.9 X10 3/uL High 2.0-7.7 [facility] Comment on above: Performed By: #### L 100.0100 #### [facility] [address] [place], [address] Basophils/100 WBC (Bld) 0.4 % Normal 0-1 [facility] Comment on above: Performed By: #### L 100.0100 #### [facility] [address] [place], [address] Eosinophils/100 WBC (Bld) 0.5 % Normal 0-5 [facility] Comment on above: Performed By: #### L 100.0100 #### [facility] [address] [place], [address] Erythrocyte distribution width (RBC) [Ratio] 12.4 % Normal 11.6-14.6 [facility] Comment on above: Performed By: #### L 100.0100 #### [facility] [address] [place], [address] Hematocrit (Bld) [Volume fraction] 37.8 % Normal 37-47 [facility] Comment on above: Performed By: #### L 100.0100 #### [facility] [address] [place], [address] Hemoglobin (Bld) [Mass/Vol] 12.5 g/dL Normal 12.0-15.0 [facility] Comment on above: Performed By: #### L 100.0100 #### [facility] [address] [place], [address] IG% 0.400 Normal 0.0-0.9 [facility] Comment on above: Result Comment: IG% - Immature Granulocytes (promyelocytes, myelocytes and metamyelocytes) > 1% indicates that a LEFT SHIFT is Present. Performed By: #### L 100.0100 #### [facility] [address] [place], [address] Lymphocytes/100 WBC (Bld) 23.5 % Normal 19-41 [facility] Comment on above: Performed By: #### L 100.0100 #### [facility] [address] [place], [address] MCH (RBC) [Entitic mass] 28.2 pg Normal 27.0-32.0 [facility] Comment on above: Performed By: #### L 100.0100 #### [facility] [address] [place], [address] MCHC (RBC) [Mass/Vol] 33.1 g/dL Normal 32-36 [facility] Comment on above: Performed By: #### L 100.0100 #### [facility] [address] [place], [address] MCV (RBC) [Entitic vol] 85.3 fL Normal 81-99 [facility] Comment on above: Performed By: #### L 100.0100 #### [facility] [address] [place], [address] Monocytes/100 WBC (Bld) 5.8 % Normal 0-10 [facility] Comment on above: Performed By: #### L 100.0100 #### [facility] [address] [place], [address] Neutrophils/100 WBC (Bld) 69.4 % Normal 47-70 [facility] Comment on above: Performed By: #### L 100.0100 #### [facility] [address] [place], [address] Nucleated RBC (Bld) [#/Vol] 0 10*3/uL Normal 0-5 [facility] Comment on above: Performed By: #### L 100.0100 #### [facility] [address] [place], [address] Platelet mean volume (Bld) [Entitic vol] 10.4 fL Normal 6.2-12.0 [facility] Comment on above: Performed By: #### L 100.0100 #### [facility] [address] [place], [address] Platelets (Bld) [#/Vol] 295 10*3/uL Normal 150-450 [facility] Comment on above: Performed By: #### L 100.0100 #### [facility] [address] [place], [address] RBC (Bld) [#/Vol] 4.43 10*6/uL Normal 4.2-5.4 [facility] Comment on above: Performed By: #### L 100.0100 #### [facility] [address] [place], [address] RDW SD 38.5 fl Normal 35.1-43.9 [facility] Comment on above: Performed By: #### L 100.0100 #### [facility] [address] [place], [address] WBC (Bld) [#/Vol] 12.8 10*3/uL High 4.4-11.0 [facility] Comment on above: Performed By: #### L 100.0100 #### [facility] [address] [place], [address] Comprehensive Metabolic Prof ilon 03-20-2024 Albumin [Mass/Vol] 3.2 g/dL Normal 3.2-5.0 [facility] Comment on above: Performed By: #### L 100.0100, L500.4050, L501.2450 #### [facility] [address] [place], [address] Albumin/Globulin [Mass ratio] 1.0 {ratio} Normal 0.9-2.4 [facility] Comment on above: Performed By: #### L 100.0100, L500.4050, L501.2450 #### [facility] [address] [place], [address] ALK P 64 U/L Normal 45-117 [facility] Comment on above: Performed By: #### L 100.0100, L500.4050, L501.2450 #### [facility] [address] [place], [address] ALT [Catalytic activity/Vol] 23 U/L Normal 13-56 [facility] Comment on above: Performed By: #### L 100.0100, L500.4050, L501.2450 #### [facility] [address] [place], [address] AST [Catalytic activity/Vol] 11 U/L Low 15-37 [facility] Comment on above: Performed By: #### L 100.0100, L500.4050, L501.2450 #### [facility] [address] [place], [address] Bilirubin [Mass/Vol] 0.60 mg/dL Normal 0.20-1.00 [facility] Comment on above: Result Comment: For patients on eltrombopag therapy, use of Dimension Mccleary TBIL is not recommended. Performed By: #### L 100.0100, L500.4050, L501.2450 #### [facility] [address] [place], [address] BUN/CRE 16.1 RATIO Normal 10-20 [facility] Comment on above: Performed By: #### L 100.0100, L500.4050, L501.2450 #### [facility] [address] [place], [address] CA,Total 8.8 mg/dL Normal 8.5-10.1 [facility] Comment on above: Performed By: #### L 100.0100, L500.4050, L501.2450 #### [facility] [address] [place], [address] Chloride [Moles/Vol] 107 mmol/L Normal 98-107 [facility] Comment on above: Performed By: #### L 100.0100, L500.4050, L501.2450 #### [facility] [address] [place], [address] CO2 [Moles/Vol] 28.0 mmol/L Normal 21.0-32.0 [facility] Comment on above: Performed By: #### L 100.0100, L500.4050, L501.2450 #### [facility] [address] [place], [address] Creatinine [Mass/Vol] 0.93 mg/dL Normal 0.55-1.02 [facility] Comment on above: Result Comment: The validity of the calculated GFR GFRAA in patients over 70 years has not been determined. Clinical correlation is essential. Performed By: #### L 100.0100, L500.4050, L501.2450 #### [facility] [address] [place], [address] ECRCL 64.64 ml/min Normal [facility] Comment on above: Performed By: #### L 100.0100, L500.4050, L501.2450 #### [facility] [address] [place], [address] EST GFR - AA 80 mL/min Normal >60 [facility] Comment on above: Result Comment: Afri can [place] GFR Calc Performed By: #### L 100.0100, L500.4050, L501.2450 #### [facility] [address] [place], [address] GAP 4 Low 5-15 [facility] Comment on above: Performed By: #### L 100.0100, L500.4050, L501.2450 #### [facility] [address] [place], [address] GFR/1.73 sq M.predicted among non-blacks MDRD (S/P/Bld) [Vol rate/Area] 66 mL/min/{1.73_m2} Normal >60 [facility] Comment on above: Result Comment: Non- GFR Calc Performed By: #### L 100.0100, L500.4050, L501.2450 #### [facility] [address] [place], [address] Globulin (S) [Mass/Vol] 3.1 g/dL Normal 2.2-4.2 [facility] Comment on above: Performed By: #### L 100.0100, L500.4050, L501.2450 #### [facility] [address] [place], [address] Glucose [Mass/Vol] 181 mg/dL High 74-106 [facility] Comment on above: Result Comment: Fast ing Glucose result greater than or equal to 126 mg/dL suggests DIABETES MELLITUS per A.D.A. criteria. Performed By: #### L 100.0100, L500.4050, L501.2450 #### [facility] [address] [place], [address] Potassium [Moles/Vol] 4.1 mmol/L Normal 3.5-5.1 [facility] Comment on above: Performed By: #### L 100.0100, L500.4050, L501.2450 #### [facility] [address] [place], [address] Sodium [Moles/Vol] 139 mmol/L Normal 136-145 [facility] Comment on above: Performed By: #### L 100.0100, L500.4050, L501.2450 #### [facility] [address] [place], [address] T PROT 6.3 g/dL Low 6.4-8.2 [facility] Comment on above: Performed By: #### L 100.0100, L500.4050, L501.2450 #### [facility] [address] [place], [address] Urea nitrogen [Mass/Vol] 15 mg/dL Normal 7-18 [facility] Comment on above: Performed By: #### L 100.0100, L500.4050, L501.2450 #### [facility] [address] [place], [address] Consultation - Surgicalon Consultation - Surgical [facility] Medical Records Department [address] [place] [address] Consultation - Surgical 03/20/24 0654 MR#: [id number] Acct: [id number] Name: ANGELIQUE WYNNE Rep #: [id number] : 1970 54 From: Connie Hendrix MD PCP: Dr. Luis Staley MD Status:ADM IN Location: [address] Assessment Plan Assessment/Plan (1) Small bowel obstruction: PLAN: Plan Patient still having pain this morning as well as nausea. With CT findings discussed with patient would recommend surgery to take a look and see if there is an adhesion causing the partial small bowel obstructions patient states she is having some flatus. Discussed with patient would plan for a diagnostic laparoscopy, possible laparotomy, possible bowel resection discussed risk include not limited to bleeding, infection, need for further surgery, injury to another organ, hernia and anesthesia. Patient no further questions this time. Connie Hendrix M.D. Pager: [phone] [facility] [address] [place] [address], [address] [place] [address] Office: [phone] HPI Consult Data Date of Consult: 03/20/24 HPI Narrative HPI Narrative: ANGELIQUE WYNNE, is a 54 F who presents to the ER due to abdominal pain nausea and vomiting. Patient does have a history of rectal cancer 16 years ago underwent resection midline incision. Patient's last colonoscopy was 2 years ago negative per patient. Patient CT abdomen pelvis does show an area possible adhesion versus closed-loop with dilated bowel in the left abdomen with nondilated bowel prior and after. Patient no further vomiting overnight did require morphine due to abdominal pain. Patient states she is having flatus this morning. Patient denies any history of previous bowel obstruction. Patient's been having pain for 2 days with nausea and vomiting. Patient states last bowel movement was on Friday. Patient initially came in with white blood count of 19 currently is 12.8 patient is on Zosyn IV. [facility] Medical History Obesity Diabetes mellitus, type 2 HLD (hyperlipidemia) Hypertension Colorectal cancer Home Medications ???Medication ???Instructions ???Recorded ???Last Taken ???Type lisinopril 10 mg tablet 10 mg PO DAILY #30 tabs 04/29/17 03/18/24 Rx atorvastatin 40 mg tablet 40 mg PO QHS cholesterol 03/19/24 03/18/24 History semaglutide 0.25 mg or 0.5 mg (2 0.5 mg subcut QWEEK weight loss 03/19/24 03/15/24 History mg/3 mL) subcutaneous pen injector (Ozempic) Allergy/AdvReac Type Severity Reaction Status Date / Time oxaliplatin Allergy Anaphylaxis Verified 03/19/24 20:49 Family History (Updated 03/20/24 @ 01:[address] Shira Hernandez MD) Father Diabetes Hypertension ETOH abuse Family History adopted Surgical History History of colon resection Social History household members: spouse Smoking Status: Never smoker alcohol intake: never substance use type: does not use Physical Exam Const alert, oriented x3 and no apparent distress HEENT normocephalic and head/scalp atraumatic Resp normal respiratory effort Cardio regular rate GI soft to palpation; Negative for non-distended GI Narrative: Tender in the left abdomen, no peritoneal signs, midline incision well-healed Palpation: Negative for guarding Extremity no clubbing, cyanosis or edema Skin no rashes or lesions noted Neuro CN's II-XII intact bilaterally Psych mental status grossly normal Lab / Micro Data 03/20/24 07:05 03/19/24 23:05 Labs: Laboratory Results - last 24 hr 03/19/24 23:05: WBC 19.0 H, RBC 5.27, Hgb 14.9, Hct 43.9, MCV 83.3, MCH 28.3, MCHC 33.9, RDW Std Deviation 37.2, RDW Coeff of Prema 12.3, Plt Count 376, MPV 10.7, Immature Gran % (Auto) 0.900, Neut % (Auto) 84.6 H, Lymph % (Auto) 9.5 L, [place] % (Auto) 4.7, Eos % (Auto) 0.0, Baso % (Auto) 0.3, A bsolute Neuts (auto) 16.1 H, Absolute Lymphs (auto) 1.80, Nucleated RBC % 0, Sodium 136, Potassium 4.1, Chloride 99, Carbon Dioxide 28.0, Anion Gap 9, BUN 16, Creatinine 0.94, Estim Creat Clear Calc 64.02, Est GFR (MDRD) Af Amer 79, Est GFR (MDRD) Non-Af 66, BUN/Creatinine Ratio 17.1, Glucose 276 H , Calcium 10.0, Total Bilirubin 0.80, AST 17, ALT 28, Alkaline Phosphatase 85, Total Protein 7.7, Albumin 3.9, Globulin 3.8, Albumin/Globulin Ratio 1.0, Lipase 30 03/20/24 00:10: Urine Color Yellow, Urine Clarity Clear, Urine pH 6.5, Ur Specific [place] 1.010, U rine Protein 15 H, Urine Glucose (UA) Normal, Urine Ketones Negative, Urine Occult Blood Negative, Urine Nitrite Negative, Urine Bilirubin Negative, Urine Urobilinogen Normal, Ur Leukocyte Esterase 100 H, Urine RBC 0 S (more content not included)... [facility] H AND P Exam - [facility] 03-20-2024 H&P Exam - Hospitalist [facility] Medical Records Department [address] [place] [address] H P Exam - Hospitalist 03/20/24 0125 MR#: [id number] Acct: [id number] Name: ANGELIQUE WYNNE Rep #: [id number] : 1970 54 From: Shira Hernandez MD PCP: Dr. Luis Staley MD Status:ADM IN Location: [place] [address] HPI - General General Date of Admission: 03/20/24 Date of Service: 03/20/24 Chief Complaint: Abdominal pain, N/V, decreased BM. HPI Narrative The patient is a 54 y/o F w/ PMHx: Obesity, HTN, HLD, Diabetes mellitus type II, Hx Colon CA s/p partial colectomy who presents to the [facility] ED on 03/20/2024 with history of abdominal pain as well as nausea and emesis with symptoms initially starting 2 days prior to ED presentation initially with upper supraumbilical abdominal discomfort eventually moving to the periumbilical area where it has remained with ongoing nausea and emesis with bilious at times occasionally green-black but no blood or coffee-ground emesis with last bowel movement noted to be very small and minimal on morning of day prior to presentation with no recent diarrhea with subjective fevers and chills earlier although she did not check her temperature with no recent ill contacts however she does report previous history of bowel obstruction and notes this is very similar with history of colorectal cancer approximately 16 years prior with resection and anastomosis at that time with no other intra- abdominal surgeries reported. In the ED patient initially reports her pain 4-10 in severity with significant improvement of pain following ED pain regimen intervention. Workup in the ED included CBC with WBC 19, hemoglobin 14.9, platelet 376 with left shift, CMP with glucose 276 otherwise unremarkable, urinalysis with no obvious evidence of UTI, CT abdomen pelvis with a proximal small bowel obstruction located primarily within the left side of the abdomen very suggestive of a closed- loop obstruction secondary either adhesions or an internal hernia. In the ED patient administered 1 L normal saline, morphine 4 mg IV x 1 as well as Zofran 4 mg IV x 1. ED physician discussed complete obstruction with surgery who recommended deferral of NGT given her N/V was resolved currently and surgery requested medicine to admit. [facility] Medical History Obesity Diabetes mellitus, type 2 HLD (hyperlipidemia) Hypertension Colorectal cancer Home Medications ???Medication ???Instructions ???Recorded ???Last Taken ???Type lisinopril 10 mg tablet 10 mg PO DAILY #30 tabs 04/29/17 Unknown Rx atorvastatin 40 mg tablet 40 mg PO QHS cholesterol 03/19/24 Unknown History semaglutide 0.25 mg or 0.5 mg (2 0.5 mg subcut QWEEK 03/19/24 Unknown History mg/3 mL) subcutaneous pen injector (Ozempic) Allergy/AdvReac Type Severity Reaction Status Date / Time oxaliplatin Allergy Anaphylaxis Verified 03/19/24 20:49 Family History (Updated 03/20/24 @ 01:[address] Shira Hernandez MD) Father Diabetes Hypertension ETOH abuse adopted (Patient does not know her maternal family history and only a small portion of her paternal family history.) Surgical History History of colon resection Social History household members: spouse Smoking Status: Never smoker alcohol intake: never substance use type: does not use ROS ROS Narrative Admission Review of Systems: CONSTITUTIONAL: No weight loss, +subjective fever, chills, + weakness or fatigue. HEENT: Eyes: No visual loss, blurred vision, double vision or yellow sclerae. Ears, Nose, Throat: No hearing loss, sneezing, congestion, runny nose or sore throat. SKIN: No rash or itching, lesions, wounds. CARDIOVASCULAR: No chest pain, chest pressure or chest discomfort, palpitations, edema, orthopnea, syncopal events. RESPIRATORY: No shortness of breath, cough or sputum, wheezing, hemoptysis. GASTROINTESTINAL: + anorexia, nausea, vomiting, abdominal pain, decreased stool output. No diarrhea, melena, BRBPR. GENITOURINARY: No dysuria, frequency, urgency or retention. NEUROLOGICAL: No headache, dizziness, syncope, paralysis, ataxia, numbness or tingling in the extremities, focal weakness, change in bowel or bladder control, seizure. MUSCULOSKELETAL: + muscle, back pain, joint pain or stiffness. HEMATOLOGIC: No anemia, bleeding or bruising. LYMPHATICS: No enlarged nodes. No history of splenectomy. PSYCHIATRIC: No history of depression or anxiety. ENDOCRINOLOGIC: No reports of sweating, cold or heat intolerance. No polyuria or polydipsia. ALLERGIES: + History of anaphylaxis. Vital Signs Vital Signs Vital Signs: 03/19/24 20:49 03/19/24 22:49 03/20/24 00:00 Temperature 97.2 F L Tempera (more content not included)... [facility] MR/POSTOP.ANEon 03-20-2024 MR/POSTOP.[facility] Medical Records Department [address] [place] [address] Anesthesia Postop Eval I 03/20/24 1113 MR#: [id number] Acct: [id number] Name: ANGELIQUE WYNNE Rep #: [id number] : 1970 54 From: Willi Gordon MD PCP: Dr. Luis Staley MD Status:ADM IN Y Race: C Location: [place] [address] Anesthesia: Postop Eval I Current Vital Signs Temperature: 97.4 F Pulse Rate: 97 Blood Pressure: 131/56 Respiratory Rate: 16 Pulse Ox: 98 Assessment Airway patent: Yes Spontaneous unlabored respirations: Yes nausea: No Vomiting: No Anesthesia Complication: No Fluid Hydration Crystalloid volume administer (ml): 1,400 Total IV fluid infused: 1,400 Progress Note Anesthesia document: Postop Eval 1 completed: No 03/20/241114 Date [facility]: Date CC: Signed [facility] MR/[id number] 03-20-2024 MR/POSTOPAN2 [facility] Medical Records Department [address] [place] [address] Anesthesia Postop Eval II 03/20/241114 MR#: [id number] Acct: [id number] Name: ANGELIQUE WYNNE Rep #: [id number] : 1970 54 From: Willi Gordon MD PCP: Dr. Luis Staley MD Status:ADM IN Y Race: C Location: [place] [address] Anesthesia Postop Eval I Sum Postop Eval Completion status Anesthesia document: Postop Eval 1 completed: No Anesthesia Postop Eval I Summary Anesthesia Postop Eval I Summary: Anesthesia Postop Eval I: Assessment Summary Airway patent Yes 03/20/24 11:14 Spontaneous unlabored Yes 03/20/24 11:14 respirations Mental status nausea No 03/20/24 11:14 Vomiting No 03/20/24 11:14 Anesthesia Postop Eval I: Fluid Summary Crystalloid volume administer 1,400 03/20/24 11:14 (ml) Colloids volume administered ( ml) Blood Product volume administered (ml) Total IV fluid infused 1,400 03/20/24 11:14 Anesthesia Postop Eval I: Summary Notes Anesthesia Complication No 03/20/24 11:14 Anesthesia Complication Comment: Post-operative progress note Anesthesia: Postop Eval II Evaluation Mental status: Awake Pain Level: 0 nausea: No Vomiting: No 10/19/24 1115 Date Willi Gordon MD Cosigner Signature: Date CC: Signed [facility] Operative Reporton 4 Operative Report [facility] Medical Records Department [address] [place] [address] Operative Report 03/20/24 1048 MR#: [id number] Acct: [id number] Name: ANGELIQUE WYNNE Rep #: [id number] : 1970 54 From: Connie Hendrix MD PCP: Dr. Luis Staley MD Status:ADM IN Location: [place] [id number] Report of Operation Date of Procedure: 03/20/24 Pre-Operative Diagnosis: Small bowel obstruction Post-Operative Diagnosis: Small bowel obstruction due to adhesions Surgery/Procedure Performed:: Laparoscopic extensive lysis of adhesion release of small bowel obstruction Surgeon: Connie Hendrix Type of Anesthesia: General/Supplemental Anesthesiologist: Willi Gordon Special Medications: Zosyn IV on the floor continuous Specimen's removed: None Estimated Blood Loss (mL): 10 cc Description of Procedure: Indications: this is a 54 year-old female who developed abdominal pain/nausea/vomiting and on workup was found to have small bowel obstruction likely due to adhesions due to previous surgery for rectal cancer 16 years ago. Description procedure: The patient was placed on operating table in supine position. A timeout was completed verifying correct patient, procedure, site, position and special equipment prior to beginning procedure. General Anesthesia was induced. The abdomen was prepped and draped in usual sterile fashion. An incision was made in the natural skin line in the epigastrium. The fascia was elevated and incised. The peritoneum was elevated and incised. Entry into the peritoneum was confirmed visually and no bowel was noted in the vicinity of the incision. Cowart trocar was placed. The abdomen was insufflated with carbon dioxide to a pressure of 12-15 mmHg. Patient tolerated insufflation well. The laparoscope was then inserted and abdomen inspected. No injuries from initial trocar placement were noted. Additional trochars were then inserted in the following locations 2 5 mm trochars left lateral abdomen. The abdomen was inspected and found to have adhesions to the midline as well as extensive small bowel adhesions in the left upper quadrant. The table is placed in reverse Trendelenburg position with the left side up. Midline adhesions were carefully taken down using scissors as well as Enseal to allow for additional 5 mm port placement in the inferior midline. The small bowel in the left upper quadrant was noted to have multiple areas of adhesions. Adhesions were able to be carefully lysed with laparoscopic scissors at the 2 areas of transition. Extensive lysis of adhesions for greater than an hour and a half was completed. The entirety of the small bowel was not ran due to multiple adhesions and risk of injury to additional bowel. 2 areas of transition appeared to be free allowing the bowel to fill distally/proximally. Secondary trochars removed under direct vision. No bleeding was noted the trocar sites. The laparoscope was withdrawn and epigastric trocar removed. The abdomen was allowed to collapse. The fascia of the 12 mm trocar was closed with a [id number] 0 Vicryl suture. The skin was closed with sutures of 4-0 Monocryl and Steri-Strips. UNEMPLOYMENT SPECIALIST assisted with closure. The patient was extubated. The patient tolerated procedure well and was taken to the postanesthesia care unit in stable condition. Complications none 03/21/24 5899 Cosigner Signature (if applicable): CC: Dr. Shira Hernandez MD; Dr. Connie Hendrix MD; Dr. Luis Stalye MD Signed Normal [facility] Procalcitoninon 03-20-2024 Procalcitonin 0.06 ng/mL Normal 0.00-0.09 [facility] Comment on above: Result Comment: A procalcitonin (PCT) level above 2.0 ng/mL on the first day of ICU admission is associated with a high risk for progression to severe sepsis and/or septic shock. A PCT level below 0.5 ng/mL on the first day of ICU admission is associated with a low risk for progression to severe and/or septic shock. Note: Concentrations <0.5 ng/mL do not exclude an infection on account of localized infections (without systemic signs) which can be associated with such low concentrations, or a systemic infection in its initial stages (<6 hours). Furthermore, increased procalcitonin can occur without infection. PCT concentrations between 0.5 and 2.0 ng/mL should be interpreted taking into account the patient's history. It is recommended to retest PCT within 6-24 hours if any concentrations <2 ng/mL are obtained. Performed By: #### L 100.0100, L500.4050, L501.2450 #### [facility] [address] [place], [address] Urinalysis, Completeon 03-20 WBC 0-5 SEEN Normal 0-5 [facility] Comment on above: Order Comment: JEWELL CTOR TO SPECIFY Performed By: #### L 100.0100, L500.4050, L501.2450 #### [facility] [address] [place], [address] BACTERIA 0 SEEN Normal None Seen [facility] Comment on above: Order Comment: JEWELL CTOR TO SPECIFY Performed By: #### L 100.0100, L500.4050, L501.2450 #### [facility] [address] [place], [address] EPI,SQUAMOUS 0 SEEN Normal 5-10 [facility] Comment on above: Order Comment: COLLE CTOR TO SPECIFY Performed By: #### L 100.0100, L500.4050, L501.2450 #### [facility] [address] [place], [address] Mucus Ql (Urine sed) 0 SEEN Normal [facility] Comment on above: Order Comment: COLLE CTOR TO SPECIFY Performed By: #### L 100.0100, L500.4050, L501.2450 #### [facility] [address] [place], [address] RBC 0 SEEN Normal 0-5 [facility] Comment on above: Order Comment: COLLE CTOR TO SPECIFY Performed By: #### L 100.0100, L500.4050, L501.2450 #### [facility] [address] [place], [address] Abdomen/Pelvis W IV Cont ONL Yon 03-19-2024 Abdomen/Pelvis W IV Cont ONLY [facility] Imaging Services [address] [place] [address] Abdomen/Pelvis W IV Cont ONLY MR#: [id number] Acct: [id number] Name: ANGELIQUE WYNNE Rep #: [id number] : 1970 F 54 From: Grace Mitchell MD PCP: Dr. Luis Staley MD Status: [facility] ER Study: Abdomen/Pelvis W IV Cont ONLY Date of Exam: Exam# [id number] Ordering Dr: Melvin Milan MD [id number] STUDY: CT ABDOMEN AND PELVIS WITH CONTRAST REASON FOR EXAM: Female, 54 years old patient with vomiting, mid-abdominal pain and history of small bowel obstruction. RADIATION DOSAGE (If Supplied By Facility): CTDIvol = ( 17.84 ) mGy, DLP = ( 1245.22 ) mGycm TECHNIQUE: Transaxial images were obtained from the dome of the diaphragm to the symphysis pubis without oral contrast. 100 mL of IV Isovue-370 was administered. Sagittal and coronal images were reconstructed. Individualized dose optimization techniques were used for this CT. COMPARISON: None. FINDINGS: The visualized lung bases are unremarkable. The visualized portions of the heart are within normal limits. There is decreased attenuation of the liver consistent with steatosis. Normal gallbladder and extrahepatic biliary system. Normal spleen. Normal pancreas. Normal bilateral adrenal glands. Normal right kidney. Normal left kidney. Normal visualized stomach. There appears to be dilated proximal small bowel located primarily in the left side of the abdomen with maximum transverse dimension of the abnormal small bowel measuring approximately 3.3 cm. There appears to be some fecalization of small bowel contents in this area consistent with fecal stasis. The small bowel proximal and distal to this are not dilated suggesting closed-loop obstruction possibly secondary to internal hernia or adhesion. The colon is not dilated. There is stool and/or gas scattered throughout the colon with scattered diverticula. The appendix is visualized and appears normal. There is multifocal atherosclerotic calcification of the abdominal aorta and iliac arteries, without a demonstrated aneurysm. Normal inferior vena cava. Normal retroperitoneum. Normal urinary bladder. Normal visualized uterus. Normal abdominal wall. Normal osseous structures. CT/Abdomen/Pelvis W IV Cont ONLY IMPRESSION: Findings are consistent with a proximal small bowel obstruction located primarily within the left side of the abdomen suggesting closed-loop obstruction secondary either to adhesions or internal hernia. Electronically Signed: Grace Mitchell MD at 0:40 EDT Reading Location ID and State: [address] [place] [address] , Service support , CC: Dr. Melvin Milan MD; Dr. Luis Staley MD Advertising Operations Coordinator: Signed Normal [facility] CBC W/Diff, Automatedon 03-02 Absolute Lymph 1.80 X10 3/uL Normal 0.83-4.51 [facility] Comment on above: Performed By: #### L 100.0100, L500.4050, L501.2450 #### [facility] [address] [place], [address] Absolute Neut 16.1 X10 3/uL High 2.0-7.7 [facility] Comment on above: Performed By: #### L 100.0100, L500.4050, L501.2450 #### [facility] [address] [place], [address] Basophils/100 WBC (Bld) 0.3 % Normal 0-1 [facility] Comment on above: Performed By: #### L 100.0100, L500.4050, L501.2450 #### [facility] [address] [place], [address] Eosinophils/100 WBC (Bld) 0.0 % Normal 0-5 [facility] Comment on above: Performed By: #### L 100.0100, L500.4050, L501.2450 #### [facility] [address] [place], [address] Erythrocyte distribution width (RBC) [Ratio] 12.3 % Normal 11.6-14.6 [facility] Comment on above: Performed By: #### L 100.0100, L500.4050, L501.2450 #### [facility] [address] [place], [address] Hematocrit (Bld) [Volume fraction] 43.9 % Normal 37-47 [facility] Comment on above: Performed By: #### L 100.0100, L500.4050, L501.2450 #### [facility] [address] [place], [address] Hemoglobin (Bld) [Mass/Vol] 14.9 g/dL Normal 12.0-15.0 [facility] Comment on above: Performed By: #### L 100.0100, L500.4050, L501.2450 #### [facility] [address] [place], [address] IG% 0.900 Normal 0.0-0.9 [facility] Comment on above: Result Comment: IG% - Immature Granulocytes (promyelocytes, myelocytes and metamyelocytes) > 1% indicates that a LEFT SHIFT is Present. Performed By: #### L 100.0100, L500.4050, L501.2450 #### [facility] [address] [place], [address] Lymphocytes/100 WBC (Bld) 9.5 % Low 19-41 [facility] Comment on above: Performed By: #### L 100.0100, L500.4050, L501.2450 #### [facility] [address] [place], [address] MCH (RBC) [Entitic mass] 28.3 pg Normal 27.0-32.0 [facility] Comment on above: Performed By: #### L 100.0100, L500.4050, L501.2450 #### [facility] [address] [place], [address] MCHC (RBC) [Mass/Vol] 33.9 g/dL Normal 32-36 [facility] Comment on above: Performed By: #### L 100.0100, L500.4050, L501.2450 #### [facility] [address] [place], [address] MCV (RBC) [Entitic vol] 83.3 fL Normal 81-99 [facility] Comment on above: Performed By: #### L 100.0100, L500.4050, L501.2450 #### [facility] [address] [place], [address] Monocytes/100 WBC (Bld) 4.7 % Normal 0-10 [facility] Comment on above: Performed By: #### L 100.0100, L500.4050, L501.2450 #### [facility] [address] [place], [address] Neutrophils/100 WBC (Bld) 84.6 % High 47-70 [facility] Comment on above: Performed By: #### L 100.0100, L500.4050, L501.2450 #### [facility] [address] [place], [address] Nucleated RBC (Bld) [#/Vol] 0 10*3/uL Normal 0-5 [facility] Comment on above: Performed By: #### L 100.0100, L500.4050, L501.2450 #### [facility] [address] [place], [address] Platelet mean volume (Bld) [Entitic vol] 10.7 fL Normal 6.2-12.0 [facility] Comment on above: Performed By: #### L 100.0100, L500.4050, L501.2450 #### [facility] [address] [place], [address] Platelets (Bld) [#/Vol] 376 10*3/uL Normal 150-450 [facility] Comment on above: Performed By: #### L 100.0100, L500.4050, L501.2450 #### [facility] [address] [place], [address] RBC (Bld) [#/Vol] 5.27 10*6/uL Normal 4.2-5.4 [facility] Comment on above: Performed By: #### L 100.0100, L500.4050, L501.2450 #### [facility] [address] [place], [address] RDW SD 37.2 fl Normal 35.1-43.9 [facility] Comment on above: Performed By: #### L 100.0100, L500.4050, L501.2450 #### [facility] [address] [place], [address] WBC (Bld) [#/Vol] 19.0 10*3/uL High 4.4-11.0 [facility] Comment on above: Performed By: #### L 100.0100, L500.4050, L501.2450 #### [facility] [address] [place], [address] Comprehensive Metabolic Prof ilon 03-19-2024 Albumin [Mass/Vol] 3.9 g/dL Normal 3.2-5.0 [facility] Comment on above: Performed By: #### L 100.0100, L500.4050, L501.2450 #### [facility] [address] [place], [address] Albumin/Globulin [Mass ratio] 1.0 {ratio} Normal 0.9-2.4 [facility] Comment on above: Performed By: #### L 100.0100, L500.4050, L501.2450 #### [facility] [address] [place], [address] ALK P 85 U/L Normal 45-117 [facility] Comment on above: Performed By: #### L 100.0100, L500.4050, L501.2450 #### [facility] [address] [place], [address] ALT [Catalytic activity/Vol] 28 U/L Normal 13-56 [facility] Comment on above: Performed By: #### L 100.0100, L500.4050, L501.2450 #### [facility] [address] [place], [address] AST [Catalytic activity/Vol] 17 U/L Normal 15-37 [facility] Comment on above: Performed By: #### L 100.0100, L500.4050, L501.2450 #### [facility] [address] [place], [address] Bilirubin [Mass/Vol] 0.80 mg/dL Normal 0.20-1.00 [facility] Comment on above: Result Comment: For patients on eltrombopag therapy, use of Dimension Mccleary TBIL is not recommended. Performed By: #### L 100.0100, L500.4050, L501.2450 #### [facility] [address] [place], [address] BUN/CRE 17.1 RATIO Normal 10-20 [facility] Comment on above: Performed By: #### L 100.0100, L500.4050, L501.2450 #### [facility] [address] [place], [address] CA,Total 10.0 mg/dL Normal 8.5-10.1 [facility] Comment on above: Performed By: #### L 100.0100, L500.4050, L501.2450 #### [facility] [address] [place], [address] Chloride [Moles/Vol] 99 mmol/L Normal 98-107 [facility] Comment on above: Performed By: #### L 100.0100, L500.4050, L501.2450 #### [facility] [address] [place], [address] CO2 [Moles/Vol] 28.0 mmol/L Normal 21.0-32.0 [facility] Comment on above: Performed By: #### L 100.0100, L500.4050, L501.2450 #### [facility] [address] [place], [address] Creatinine [Mass/Vol] 0.94 mg/dL Normal 0.55-1.02 [facility] Comment on above: Result Comment: The validity of the calculated GFR GFRAA in patients over 70 years has not been determined. Clinical correlation is essential. Performed By: #### L 100.0100, L500.4050, L501.2450 #### [facility] [address] [place], [address] ECRCL 64.02 ml/min Normal [facility] Comment on above: Performed By: #### L 100.0100, L500.4050, L501.2450 #### [facility] [address] [place], [address] EST GFR - AA 79 mL/min Normal >60 [facility] Comment on above: Result Comment: Afri can [place] GFR Calc Performed By: #### L 100.0100, L500.4050, L501.2450 #### [facility] [address] [place], [address] GAP 9 Normal 5-15 [facility] Comment on above: Performed By: #### L 100.0100, L500.4050, L501.2450 #### [facility] [address] [place], [address] GFR/1.73 sq M.predicted among non-blacks MDRD (S/P/Bld) [Vol rate/Area] 66 mL/min/{1.73_m2} Normal >60 [facility] Comment on above: Result Comment: Non- GFR Calc Performed By: #### L 100.0100, L500.4050, L501.2450 #### [facility] [address] [place], [address] Globulin (S) [Mass/Vol] 3.8 g/dL Normal 2.2-4.2 [facility] Comment on above: Performed By: #### L 100.0100, L500.4050, L501.2450 #### [facility] [address] [place], [address] Glucose [Mass/Vol] 276 mg/dL High 74-106 [facility] Comment on above: Result Comment: Gluc ose result greater than or equal to 200 mg/dL suggests DIABETES MELLITUS per A.D.A. criteria. Performed By: #### L 100.0100, L500.4050, L501.2450 #### [facility] [address] [place], [address] Potassium [Moles/Vol] 4.1 mmol/L Normal 3.5-5.1 [facility] Comment on above: Performed By: #### L 100.0100, L500.4050, L501.2450 #### [facility] [address] [place], [address] Sodium [Moles/Vol] 136 mmol/L Normal 136-145 [facility] Comment on above: Performed By: #### L 100.0100, L500.4050, L501.2450 #### [facility] [address] [place], [address] T PROT 7.7 g/dL Normal 6.4-8.2 [facility] Comment on above: Performed By: #### L 100.0100, L500.4050, L501.2450 #### [facility] [address] [place], [address] Urea nitrogen [Mass/Vol] 16 mg/dL Normal 7-18 [facility] Comment on above: Performed By: #### L 100.0100, L500.4050, L501.2450 #### [facility] [address] [place], [address] Emergency Department Summary on 03-19-2024 Emergency Department Summary [facility] Medical Records Department [address] [place] [address] Emergency Department Summary 03/19/24 MR#: [id number] Acct: [id number] Name: ANGELIQUE WYNNE Rep #: [id number] : 1970 54 From: Melvin Milan MD PCP: Dr. Luis Staley MD Status:REG ER Location: ED HPI HPI - GI History of Present Illness Chief Complaint: Nausea/Vomiting Informant: patient Narrative Narrative: 54-year-old female with abdominal pain and nausea/vomiting. Symptoms started about 2 days ago with upper supraumbilical abdominal pain, moved down to the periumbilical area where it has been, followed by vomiting that has been bilious at times-blackish green according to patient, no blood or coffee-ground emesis. She been having little in the way of bowel movements, her last 1 was small and it was this morning no blood or melena. No diarrhea. She had some subjective fevers and chills earlier but did not check her temperature. No known contacts that have been sick with any of the symptoms. She is concerned that this may be a bowel obstruction some of the symptoms are similar to one that she had in the past. 16 years ago she had colorectal cancer and had a resection with anastomosis. No other abdominal surgeries. [facility] Medical History (Updated 03/20/24 @ 01:[address] Shira Hernandez MD) Obesity Diabetes mellitus, type 2 HLD (hyperlipidemia) Hypertension Colorectal cancer Home Medications ???Medication ???Instructions ???Recorded ???Last Taken ???Type lisinopril 10 mg tablet 10 mg PO DAILY #30 tabs 04/29/17 Unknown Rx atorvastatin 40 mg tablet 40 mg PO QHS cholesterol 03/19/24 Unknown History semaglutide 0.25 mg or 0.5 mg (2 0.5 mg subcut QWEEK 03/19/24 Unknown History mg/3 mL) subcutaneous pen injector (Ozempic) Allergy/AdvReac Type Severity Reaction Status Date / Time oxaliplatin Allergy Anaphylaxis Verified 03/19/24 20:49 Surgical History History of colon resection Social History (Updated 03/20/24 @ 01:[address] Shira Hernandez MD) household members: spouse Smoking Status: Never smoker alcohol intake: never substance use type: does not use ROS ROS ED Constitutional Constitutional ED: Reports chills, fever(s) and subjective Eyes Eyes: Denies change in vision or diplopia ENT ENT ED: Denies rhinorrhea or sore throat Cardiovascular Cardiovascular: Denies chest pain or palpitations Respiratory/Chest Respiratory/Chest: Denies cough or dyspnea Gastrointestinal Gastrointestinal: Reports abdominal pain, nausea and vomiting; Denies diarrhea Genitourinary Genitourinary ED: Denies dysuria or hematuria Musculoskeletal Musculoskeletal: Denies back pain or neck pain Integumentary Denies abscess or rash Neurologic Neurologic: Denies headache(s), paresthesias or weakness Psychiatric Psychiatric: Denies anxiety or suicidal thoughts EXAM Physical Exam Const Vital Signs: 03/19/24 20:49 03/19/24 22:49 03/20/24 00:00 Temperature 97.2 F L Temperature Source Temporal Pulse Rate 117 H 98 90 Respiratory Rate 16 16 18 Blood Pressure 165/97 H 151/89 H 168/77 H Blood Pressure Mean 119 109 107 Pulse Ox 95 92 96 Oxygen Delivery Method Room Air Room Air Room Air Positive well nourished and well developed Constitutional Narrative: Well-appearing General Appearance ED: well developed and NAD HEENT Reports moist mucous membranes normocephalic and atraumatic Eyes PERRL and EOMs intact bilaterally Neck full ROM and supple Resp normal respiratory effort and clear to auscultation bilaterally Cardio regular rate, regular rhythm and no murmurs Rate: tachycardic GI non-distended GI Narrative: Tender epigastric/supraumbili ana/periumbilical, mild-moderate, no palpable hernia, good bowel sounds no guarding or rebound no other areas of tenderness. Auscultation: normoactive bowel sounds Palpation: soft Back/Spine no CVA tenderness General Back: other FROM Extremity normal to inspection General Extremety ED: Negative for edema, pulses abnormal or tenderness General Extremity: Negative for edema or pulses abnormal Neuro oriented x3, CN's II-XII intact bilaterally and no sensory deficits noted Sensorium / Orientation: awake and alert Motor Exam: strength 5/5 throughout Psych mental status grossly normal and thought process normal Skin no rashes or lesions noted and no wounds MDM MDM MDM Narrative Medical decision making narrative: Certainly considering small bowel obstruction in addition to large bowel obstruction, in addition to gastroenteritis since she was experiencing subjective fevers. She has a high white blood count, and a CT was obtained. I reviewed the images and the result which I agree with, it is con (more content not included)... Normal [facility] Lipaseon 03-19-2024 Lipase [Catalytic activity/Vol] 30 U/L Normal 13-75 [facility] Comment on above: Result Comment: [place] oleary note: LIPASE revised reference range effective 22. New Lipase methodology. Expected to produce lower values than the previous assay method. NEW Reference Range: 13 - 75 U/L Performed By: #### L 100.0100, L500.4050, L501.2450 #### [facility] [address] [place], [address] [facility] 03-17-2024 [facility] Telephone ([id number]) ANGELIQUE WYNNE ([id number]) 1970 F Date Time Provider Department 03/17/24 BRODERICK ANSARI [id number] During your visit today, we recorded the following information about you: Rosario Delatorre 03/17/2024 10:50 AM Signed Patient calling to schedule bariatric surgery. She received the approval and was told to call if not given surgery date within certain time frame. # [phone] Keon Anderson 03/17/2024 11:24 AM Signed Phoned patient to discuss scheduling surgery. Patient states she has received insurance approval from her insurance company and from the [employer]. Advised patient that Dr. Ansari's nurse will be back in the office on Friday at which point I will let her know that she is ready for scheduling. Patient very pleasant and understands the plan to be scheduled next week. Keon Anderson ELECTRONIC DEVELOPMENT TECHNICIAN Boat Tender for Dr. García/ Covering for Dr. Ansari Allergies As of Date: 03/17/2024 Noted Allergy Reaction OXALIPLATIN 02/22/2008 10 - Anaphylaxis Comments: Went to [facility] ER 02/08/08 Date Reviewed: 12/08/2023 Reviewed by: Petra Adams MA - Fully Assessed Reason for Visit: Schedule Surgery [1330] Prescriptions as of 04/08/2024 - atorvastatin (LIPITOR) 40 mg tablet Take 1 tablet by mouth daily at bedtime. For cholesterol. - lisinopril (ZESTRIL) 20 mg tablet Take 1 tablet by mouth once daily. - CPAP/BIPAP/OTHER Type .CPAPSettings into a note to see current settings/supplies/DME information. - vitamin B complex (B COMPLEX ORAL) Take by mouth once daily. - semaglutide (OZEMPIC) 0.25 mg or 0.5 mg (2 mg/3 mL) pen Inject 0.5 mg subcutaneously one time a week. - Lancets lancets Use with blood glucose test once daily. Insulin Dep? Yes - blood sugar diagnostic test strip Use with blood glucose test once daily, Insulin Dep? No - Blood-Glucose Meter Test One time a day. - Blood Glucose Control, Normal soln Use as directed Problem List As Of Date 03/17/2024 Noted Resolved MIXED HYPERLIPIDEMIA [E78.2] 02/28/2006 Essential [...] [Z85.048] 06/28/2014 Obesity, Class II, BMI 35-39.9 [E66.812] 12/13/2022 Encounter Status:Closed by YAW ALAS on 04/08/24 [facility] CNCOon 01-09-2024 CNCO Letter Text Normal [facility] CNCOon 01-02-2024 CNCO Letter Text Normal [facility] CNOVon 12-08-2023 CNOV Office Visit (NESLBO ) ANGELIQUE WYNNE ([id number]) 1970 F Date Time Provider Department 12/08/23 10:00 AM JESUS ORTIZ During your visit today, we recorded the following information about you: Pulse Blood pressure Weight Height 79/minute 123/79 81.6 kg 1.499 m Jesus Ortiz MD 12/08/2023 10:05 AM Signed [facility] New Patient Evaluation PATIENT NAME: Angelique Wynne DATE OF SERVICE: December 08, 2023 CONSULTING PROVIDER: Rachel Mcmillan [address] [facility] [address] REASON FOR CONSULT: Rachel Mcmillan sends the [...] difference.) Physical T-Score 50.8 Mental T-Score 53.3 [place] Sleepiness Scale Sitting and Reading? no chance [...] HISTORY OF (more content not included)... Normal [facility] ALKALINE PHOSPHATASE ISOENZY MES (P)on 12-05-2023 ALK PHOS BONE % 45.3 % Normal 10.7-68.3 [facility] Comment on above: Order Comment: Speci men Type: BLOOD SPECIMENOrdering Facility: [facility] Address: [address] [place] [address] Performed By: #### A LKISOP ####[facility] [id number] [place] [address] [place] ALK PHOS LIVER % 54.7 % Normal 26.0-86.2 [facility] Comment on above: Order Comment: Speci men Type: BLOOD SPECIMENOrdering Facility: [facility] Address: [address] [place] [address] Performed By: #### A LKISOP ####[facility] [id number] [place] [address] [place] BONE FRACTION 39.4 U/L Normal 12.9-52.6 [facility] Comment on above: Order Comment: Speci men Type: BLOOD SPECIMENOrdering Facility: [facility] Address: [address] [place] [address] Performed By: #### A LKISOP ####[facility] [id number] [place] [address] [place] INTESTINE FRACTION 0.0 U/L Normal 0.0-16.3 [facility] Comment on above: Order Comment: Speci men Type: BLOOD SPECIMENOrdering Facility: [facility] Address: [address] [place] [address] Performed By: #### A LKISOP ####[facility] [id number] [place] [address] [place] LIVER FRACTION 47.6 U/L Normal 16.0-69.3 [facility] Comment on above: Order Comment: Speci men Type: BLOOD SPECIMENOrdering Facility: [facility] Address: [address] [place] [address] Performed By: #### A LKISOP ####[facility] [id number] [place] [address] [place] Neutrophils/100 WBC (Bld) 0.0 % Normal 0.0-24.2 [facility] Comment on above: Order Comment: Speci men Type: BLOOD SPECIMENOrdering Facility: [facility] Address: [address] [place] [address] Performed By: #### A LKISOP ####[facility] [id number] [place] [address] [place] ALP SerPl-cCncon 12-05-2023 ALP [Catalytic activity/Vol] 87 U/L Normal 34-123 [facility] Comment on above: Order Comment: Speci men Type: BLOOD SPECIMENOrdering Facility: [facility] Address: [address] [place] [address] Performed By: #### 6 768-6 ####[facility] [id number] [address] [address] [place] CNOVon 12-05-2023 CNOV Office Visit (FAMPWS ) RICCIANGELIQUE ([id number]) 1970 F Date Time Provider Department 12/05/23 10:00 AM LUIS STALEY FAMPWS During your visit today, we recorded the [...] Abs Lymph 1.00 - 4.00 k/uL 2.51 [place]% % 5.2 Abs [place] <0.87 k/uL 0.45 Eosin% % 2.9 Abs [...] ALLERGIES Allergen Reactions Oxaliplatin Anaphylaxis Went to [facility] ER 02/08/08 PAST MEDICAL HISTORY [...] Daughter Soci (more content not included)... Normal [facility] Jasmyne 12-02-2023 CNPN Telephone ([facility]) ANGELIQUE WYNNE ([id number]) 1970 F Date Time Provider Department 12/02/23 [facility] During your visit today, we recorded the [...] 02/22/2008 10 - Anaphylaxis Comments: Went to [facility] ER 02/08/08 Date Reviewed: 11/28/2023 Reviewed by: Rolf Patino RD - Fully Assessed Reason for Visit: Results [95] Primary Visit Diagnosis:Elevated alkaline phosphatase level [R74.8] Order(s):ALK PHOS ISOENZYM BL [SQALKISO] Order #: [id number] FUTURE Prescriptions as of 12/02/2023 - lisinopril [...] by LUZ MARINA LEUNG on 12/02/23 Normal [facility] ALBUMIN/CREATININE RATIO, UR MICHAELon 12-01-2023 Albumin DL <= 20 mg/L (U) [Mass/Vol] mg/dL Normal [facility] Comment on above: Order Comment: Speci men Type: URINE SPECIMENOrdering Facility: [facility] Address: [address] [place] [address] Performed By: #### U ACR ####[facility] [id number] [place] [address] [place] Albumin/Creatinine (U) [Mass ratio] <10 Normal <30 [facility] Comment on above: Order Comment: Speci men Type: URINE SPECIMENOrdering Facility: [facility] Address: [address] [place] [address] Result Comment: Adul t Male and Female Nephrotic Criteria: <30 mg/g is considered normal to mildly increased 30-300 mg/g is considered moderately increased >300 mg/g is considered severely increased KDIGO. (2013). KDIGO 2012 Clinical Practice Guideline for the Evaluation and Management of Chronic Kidney Disease. Official Journal of the International Society of Nephrology, 3(1), 1-150. Performed By: #### U ACR ####[facility] [id number] [place] [address] [place] Creatinine (U) [Mass/Vol] 121.4 mg/dL Normal 20.0-300.0 [facility] Comment on above: Order Comment: Speci men Type: URINE SPECIMENOrdering Facility: [facility] Address: [address] [place] [address] Performed By: #### U ACR ####[facility] [id number] [place] [address] [place] CBC W Auto Differential pane l (Bld)on 12-01-2023 Basophils (Bld) [#/Vol] 0.06 10*3/uL Normal <0.11 [facility] Comment on above: Order Comment: Speci men Type: BLOOD SPECIMENOrdering Facility: [facility] Address: [address] [place] [address] Performed By: #### 5 7021-8 ####[facility] [id number] [place] [address] [place] Basophils/100 WBC (Bld) 0.7 % Normal [facility] Comment on above: Order Comment: Speci men Type: BLOOD SPECIMENOrdering Facility: [facility] Address: [address] [place] [address] Performed By: #### 5 7021-8 ####[facility] [id number] [place] [address] [place] Differential cell count method Nom (Bld) Auto Normal [facility] Comment on above: Order Comment: Speci men Type: BLOOD SPECIMENOrdering Facility: [facility] Address: [address] [place] [address] Performed By: #### 5 7021-8 ####[facility] [id number] [place] [address] [place] Eosinophils (Bld) [#/Vol] 0.25 10*3/uL Normal <0.46 [facility] Comment on above: Order Comment: Speci men Type: BLOOD SPECIMENOrdering Facility: [facility] Address: [address] [place] [address] Performed By: #### 5 7021-8 ####[facility] [id number] [place] [address] [place] Eosinophils/100 WBC (Bld) 2.9 % Normal [facility] Comment on above: Order Comment: Speci men Type: BLOOD SPECIMENOrdering Facility: [facility] Address: [address] [place] [address] Performed By: #### 5 7021-8 ####[facility] [id number] [place] [address] [place] Erythrocyte distribution width (RBC) [Ratio] 12.4 % Normal 11.5-15.0 [facility] Comment on above: Order Comment: Speci men Type: BLOOD SPECIMENOrdering Facility: [facility] Address: [address] [place] [address] Performed By: #### 5 7021-8 ####[facility] [id number] [place] [address] [place] Hematocrit (Bld) [Volume fraction] 42.1 % Normal 36.0-46.0 [facility] Comment on above: Order Comment: Speci men Type: BLOOD SPECIMENOrdering Facility: [facility] Address: [address] [place] [address] Performed By: #### 5 7021-8 ####[facility] [id number] [place] [address] [place] Hemoglobin (Bld) [Mass/Vol] 13.6 g/dL Normal 11.5-15.5 [facility] Comment on above: Order Comment: Speci men Type: BLOOD SPECIMENOrdering Facility: [facility] Address: [address] [place] [address] Performed By: #### 5 7021-8 ####[facility] [id number] [place] [address] [place] Immature granulocytes (Bld) [#/Vol] 0.03 10*3/uL Normal <0.10 [facility] Comment on above: Order Comment: Speci men Type: BLOOD SPECIMENOrdering Facility: [facility] Address: [address] [place] [address] Performed By: #### 5 7021-8 ####[facility] [id number] [place] [address] [place] Immature granulocytes/100 WBC (Bld) 0.3 % Normal [facility] Comment on above: Order Comment: Speci men Type: BLOOD SPECIMENOrdering Facility: [facility] Address: [address] [place] [address] Performed By: #### 5 7021-8 ####[facility] [id number] [place] [address] [place] Lymphocytes (Bld) [#/Vol] 2.51 10*3/uL Normal 1.00-4.00 [facility] Comment on above: Order Comment: Speci men Type: BLOOD SPECIMENOrdering Facility: [facility] Address: [address] [place] [address] Performed By: #### 5 7021-8 ####[facility] [id number] [place] [address] [place] Lymphocytes/100 WBC (Bld) 29.1 % Normal [facility] Comment on above: Order Comment: Speci men Type: BLOOD SPECIMENOrdering Facility: [facility] Address: [address] [place] [address] Performed By: #### 5 7021-8 ####[facility] [id number] [place] [address] [place] MCH (RBC) [Entitic mass] 28.0 pg Normal 26.0-34.0 [facility] Comment on above: Order Comment: Speci men Type: BLOOD SPECIMENOrdering Facility: [facility] [facility] Address: [address] [place] [address] Performed By: #### 5 7021-8 ####[facility] LABIA [id number] [place] [address] [place] MCHC (RBC) [Mass/Vol] 32.3 g/dL Normal 30.5-36.0 [facility] Comment on above: Order Comment: Speci men Type: BLOOD SPECIMENOrdering Facility: [facility] Address: [address] [place] [address] Performed By: #### 5 7021-8 ####[facility] LABIA [id number] [place] [address] [place] MCV (RBC) [Entitic vol] 86.6 fL Normal 80.0-100.0 [facility] Comment on above: Order Comment: Speci men Type: BLOOD SPECIMENOrdering Facility: [facility] Address: [address] [place] [address] Performed By: #### 5 7021-8 ####[facility] LABIA [id number] [place] [address] [place] Monocytes (Bld) [#/Vol] 0.45 10*3/uL Normal <0.87 [facility] Comment on above: Order Comment: Speci men Type: BLOOD SPECIMENOrdering Facility: [facility] Address: [address] [place] [address] Performed By: #### 5 7021-8 ####[facility] LABCLIA [id number] [place] [address] [place] Monocytes/100 WBC (Bld) 5.2 % Normal [facility] Comment on above: Order Comment: Speci men Type: BLOOD SPECIMENOrdering Facility: [facility] Address: [address] [place] [address] Performed By: #### 5 7021-8 ####[facility] LABCLIA [id number] [place] [address] [place] Neutrophils (Bld) [#/Vol] 5.33 10*3/uL Normal 1.45-7.50 [facility] Comment on above: Order Comment: Speci men Type: BLOOD SPECIMENOrdering Facility: [facility] Address: [address] [place] [address] Performed By: #### 5 7021-8 ####[facility] LABCLIA [id number] [place] [address] [place] Neutrophils/100 WBC (Bld) 61.8 % Normal [facility] Comment on above: Order Comment: Speci men Type: BLOOD SPECIMENOrdering Facility: [facility] Address: [address] [place] [address] Performed By: #### 5 7021-8 ####[facility] LABCLIA [id number] [place] [address] [place] Nucleated RBC (Bld) [#/Vol] 10*3/uL Normal <0.01 [facility] Comment on above: Order Comment: Speci men Type: BLOOD SPECIMENOrdering Facility: [facility] Address: [address] [place] [address] Performed By: #### 5 7021-8 ####[facility] LABCLIA [id number] [place] [address] [place] Nucleated RBC/100 WBC (Bld) [Ratio] 0.0 /100 WBC Normal [facility] Comment on above: Order Comment: Speci men Type: BLOOD SPECIMENOrdering Facility: [facility] Address: [address] [place] [address] Performed By: #### 5 7021-8 ####[facility] LABCLIA [id number] [place] [address] [place] Platelet mean volume (Bld) [Entitic vol] 11.6 fL Normal 9.0-12.7 [facility] Comment on above: Order Comment: Speci men Type: BLOOD SPECIMENOrdering Facility: [facility] Address: [address] [place] [address] Performed By: #### 5 7021-8 ####[facility] LABIA [id number] [place] [address] [place] Platelets (Bld) [#/Vol] 273 10*3/uL Normal 150-400 [facility] Comment on above: Order Comment: Speci men Type: BLOOD SPECIMENOrdering Facility: [facility] Address: [address] [place] [address] Performed By: #### 5 7021-8 ####[facility] LABCLIA [id number] [place] [address] [place] RBC (Bld) [#/Vol] 4.86 10*6/uL Normal 3.90-5.20 [facility] Comment on above: Order Comment: Speci men Type: BLOOD SPECIMENOrdering Facility: [facility] Address: [address] [place] [address] Performed By: #### 5 7021-8 ####[facility] LABIA [id number] [address] [id number] [address] [place] WBC (Bld) [#/Vol] 8.63 10*3/uL Normal 3.70-11.00 [facility] Comment on above: Order Comment: Speci men Type: BLOOD SPECIMENOrdering Facility: [facility] Address: [address] [place] [address] Performed By: #### 5 7021-8 ####[facility] LABCLIA [id number] [place] [address] [place] CEA SerPl-ncon 12-01-2023 Carcinoembryonic Ag [Mass/Vol] 0.6 ng/mL Normal <=2.9 [facility] Comment on above: Order Comment: Speci men Type: BLOOD SPECIMENOrdering Facility: [facility] Address: [address] [place] [address] Result Comment: Carc inoembryonic antigen test is used as an aid in monitoring response to treatment or recurrence in patients with established colorectal, breast, lung, prostatic, pancreatic, and ovarian carcinomas. Clinical correlation is required. The Carcinoembryonic antigen test was performed using the Juan [employer] Raú[employer] DXI paramagnetic particle chemiluminescent immunoassay method. Results obtained with different assay methods or kits cannot be used interchangeably. Performed By: #### 2 039-6 ####[facility] LABCLIA [id number] [place] [address] [place] Comprehensive metabolic 2000 panelon 12-01-2023 Albumin [Mass/Vol] 4.3 g/dL Normal 3.9-4.9 [facility] Comment on above: Order Comment: Speci men Type: BLOOD SPECIMENOrdering Facility: [facility] Address: [address] [place] [address] Performed By: #### 2 4323-8, 52427-0 ####[facility] LABCLIA [id number] [place] [address] [place] ALP [Catalytic activity/Vol] 146 U/L High 34-123 [facility] Comment on above: Order Comment: Speci men Type: BLOOD SPECIMENOrdering Facility: [facility] Address: [address] [place] [address] Performed By: #### 2 4323-8, 13628-4 ####[facility] LABCLIA [id number] [place] [address] [place] ALT [Catalytic activity/Vol] 25 U/L Normal 7-38 [facility] Comment on above: Order Comment: Speci men Type: BLOOD SPECIMENOrdering Facility: [facility] Address: [address] [place] [address] Performed By: #### 2 4323-8, 49775-6 ####[facility] LABCLIA [id number] [place] [address] [place] Anion gap [Moles/Vol] 13 mmol/L Normal 8-15 [facility] Comment on above: Order Comment: Speci men Type: BLOOD SPECIMENOrdering Facility: [facility] Address: [address] [place] [address] Performed By: #### 2 4323-8, 55390-9 ####[facility] LABCLIA [id number] [place] [address] [place] AST [Catalytic activity/Vol] 25 U/L Normal 13-35 [facility] Comment on above: Order Comment: Speci men Type: BLOOD SPECIMENOrdering Facility: [facility] Address: [address] [place] [address] Performed By: #### 2 4323-8, 30631-8 ####[facility] LABCLIA [id number] [place] [address] [place] Bilirubin [Mass/Vol] 0.3 mg/dL Normal 0.2-1.3 [facility] Comment on above: Order Comment: Speci men Type: BLOOD SPECIMENOrdering Facility: [facility] Address: [address] [place] [address] Performed By: #### 2 4323-8, 63831-6 ####[facility] LABCLIA [id number] [address] [address] [place] Calcium [Mass/Vol] 10.2 mg/dL Normal 8.5-10.2 [facility] Comment on above: Order Comment: Speci men Type: BLOOD SPECIMENOrdering Facility: [facility] Address: [address] [place] [address] Performed By: #### 2 4323-8, 28595-4 ####[facility] LABCLIA [id number] [place] [address] [place] Chloride [Moles/Vol] 106 mmol/L Normal 98-107 [facility] Comment on above: Order Comment: Speci men Type: BLOOD SPECIMENOrdering Facility: [facility] Address: [address] [place] [address] Performed By: #### 2 4323-8, 87553-0 ####[facility] LABCLIA [id number] [place] [address] [place] CO2 [Moles/Vol] 22 mmol/L Normal 22-30 [facility] Comment on above: Order Comment: Speci men Type: BLOOD SPECIMENOrdering Facility: [facility] Address: [address] [place] [address] Performed By: #### 2 4323-8, 39170-9 ####[facility] LABCLIA [id number] [place] [address] [place] Creatinine [Mass/Vol] 0.73 mg/dL Normal 0.58-0.96 [facility] Comment on above: Order Comment: Speci men Type: BLOOD SPECIMENOrdering Facility: [facility] Address: [address] [place] [address] Performed By: #### 2 4323-8, 10503-1 ####[facility] LABCLIA [id number] [place] [address] [place] Creatinine and Glomerular filtration rate.predicted panel (S/P/Bld) 97 mL/min/1.73m??? Normal >=60 [facility] Comment on above: Order Comment: Yolande dodge Type: BLOOD SPECIMENOrdering Facility: [facility] Address: [address] [place] [address] Result Comment: Patricia mated Glomerular Filtration Rate [...] actual GFR. Performed By: #### 2 4323-8, 52458-9 ####[facility] LABCLIA [id number] [place] [address] [place] Glucose [Mass/Vol] 91 mg/dL Normal 74-99 [facility] Comment on above: Order Comment: Yolande dodge Type: BLOOD SPECIMENOrdering Facility: [facility] Address: [address] [place] [address] Result Comment: The [place] Diabetes Association (ADA) provides guidance for cutoff [...] Standards of Medical Care in Diabetes 2016, [place] [employer]. Diabetes Care. 2016.39(Suppl 1). Performed By: #### 2 4323-8, 77306-6 ####[facility] LABCLIA [id number] [place] [address] [place] Potassium [Moles/Vol] 4.2 mmol/L Normal 3.7-5.1 [facility] Comment on above: Order Comment: Speci men Type: BLOOD SPECIMENOrdering Facility: [facility] Address: [address] [place] [address] Performed By: #### 2 4323-8, 38544-5 ####[facility] LABCLIA [id number] [place] [address] [place] Protein [Mass/Vol] 6.8 g/dL Normal 6.3-8.0 [facility] Comment on above: Order Comment: Speci men Type: BLOOD SPECIMENOrdering Facility: [facility] Address: [address] [place] [address] Performed By: #### 2 4323-8, 60424-4 ####[facility] LABCLIA [id number] [place] [address] [place] Sodium [Moles/Vol] 141 mmol/L Normal 136-144 [facility] Comment on above: Order Comment: Speci men Type: BLOOD SPECIMENOrdering Facility: [facility] Address: [address] [place] [address] Performed By: #### 2 4323-8, 99542-0 ####[facility] LABCLIA [id number] [place] [address] [place] Urea nitrogen [Mass/Vol] 14 mg/dL Normal 7-21 [facility] Comment on above: Order Comment: Speci men Type: BLOOD SPECIMENOrdering Facility: [facility] Address: [address] [place] [address] Performed By: #### 2 4323-8, 66440-3 ####[facility] LABCLIA [id number] [place] [address] [place] HbA1c (Bld)on 12-01-2023 Average glucose Estimated from glycated hemoglobin (Bld) [Mass/Vol] 123 mg/dL Normal [facility] Comment on above: Order Comment: Speci men Type: BLOOD SPECIMENOrdering Facility: [facility] Address: [address] [place] [address] Result Comment: eAG: (Estimated average glucose) is a calculated value from HgbA1c and is sales account representative of the average blood glucose level in the last 2-3 month period. Performed By: #### 5 5454-3 ####[facility] LABCLIA [id number] [place] [address] [place] HbA1c (Bld) [Mass fraction] 5.9 % High 4.3-5.6 [facility] Comment on above: Order Comment: Speci men Type: BLOOD SPECIMENOrdering Facility: [facility] Address: [address] [place] [address] Result Comment: [place] Diabetes Association guidelines indicate that patients with HgbA1c in the range 5.7-6.4% are at increased risk for development of diabetes, and intervention by lifestyle modification may be beneficial. HgbA1c greater or equal to 6.5% is considered diagnostic of diabetes. Performed By: #### 5 5454-3 ####[facility] LABCLIA [id number] [place] [address] [place] Lipid 1996 panelon 4 Cholesterol [Mass/Vol] 111 mg/dL Normal <200 [facility] Comment on above: Order Comment: Yolande dodge Type: BLOOD SPECIMENOrdering Facility: [facility] Address: [address] [place] [address] Result Comment: <200 mg/dL, Desirable 200-239 mg/dL, Borderline high >239 mg/dL, High Performed By: #### 2 4323-8, 23899-6 ####[facility] LABIA [id number] [place] [address] [place] Cholesterol in HDL [Mass/Vol] 55 mg/dL Normal >39 [facility] Comment on above: Order Comment: Yolande men Type: BLOOD SPECIMENOrdering Facility: [facility] Address: [address] [place] [address] Result Comment: 40-5 9 mg/dL, Acceptable >59 mg/dL, High: Negative risk factor for coronary heart disease <40 mg/dL, Low: Positive risk factor for coronary heart disease Performed By: #### 2 4323-8, 87571-3 ####[facility] LABCLIA [id number] [address] STATES OF [facility] Cholesterol in LDL [Mass/Vol] 27 mg/dL Normal <100 [facility] Comment on above: Order Comment: Speci men Type: BLOOD SPECIMENOrdering Facility: [facility] Address: [address] [place] [address] Result Comment: <100 mg/dL, Optimal 100-129 mg/dL, Near optimal/above optimal 130-159 mg/dL, Borderline high 160-189 mg/dL, High >189 mg/dL, Very high Secondary prevention optimal LDL Cholesterol levels are recommended to be < 70 mg/dL Performed By: #### 2 4323-8, 13578-9 ####[facility] LABCLIA [id number] [address] Cholesterol in LDL/Cholesterol in HDL [Mass ratio] 0.49 {ratio} Normal <2.54 [facility] Comment on above: Order Comment: Speci men Type: BLOOD SPECIMENOrdering Facility: [facility] Address: [address] [place] [address] Result Comment: Refe rence: 1. National Cholesterol Education Program ATP III Guideline At-A-Glance Quick Desk Reference: National Heart, Lung, and Blood [place]. National Institutes of Health. 2001: NIH Publication No. 01-3305. 2. An International Atherosclerosis Society position paper: global recommendations for the management of dyslipidemia: executive summary, Atherosclerosis. 2014: 232(2):410-413. Performed By: #### 2 4323-8, 56197-9 ####[facility] LABCLIA [id number] [address] [place] Cholesterol in VLDL [Mass/Vol] 29 mg/dL Normal <30 [facility] Comment on above: Order Comment: Speci men Type: BLOOD SPECIMENOrdering Facility: [facility] Address: [address] [place] [id number] Performed By: #### 2 4323-8, 98499-8 ####[facility] LABCLIA [id number] [place] [id number] [place] Cholesterol non HDL [Mass/Vol] 56 mg/dL Normal <130 [facility] Comment on above: Order Comment: Speci men Type: BLOOD SPECIMENOrdering Facility: [facility] Address: [address] [place] [address] Result Comment: <130 mg/dL, Optimal 130-159 mg/dL, Near optimal/above optimal 160-189 mg/dL, Borderline high 190-219 mg/dL, High >219 mg/dL, Very high Secondary prevention optimal non HDL Cholesterol levels are recommended to be <100 mg/dL Performed By: #### 2 4323-8, 54835-4 ####[facility] LABCLIA [id number] [place] [address] [place] Cholesterol.total/Cho lesterol in HDL [Mass ratio] 2.02 {ratio} Normal <5.10 [facility] Comment on above: Order Comment: Speci men Type: BLOOD SPECIMENOrdering Facility: [facility] Address: [address] [place] [address] Performed By: #### 2 4323-8, 25776-4 ####[facility] LABCLIA [id number] [place] [address] [place] FASTING TIME 12 hrs Normal [facility] Comment on above: Order Comment: Speci men Type: BLOOD SPECIMENOrdering Facility: [facility] Address: [address] [place] [address] Performed By: #### 2 4323-8, 95929-2 ####[facility] LABCLIA [id number] [place] [address] [place] Triglyceride [Mass/Vol] 145 mg/dL Normal <150 [facility] Comment on above: Order Comment: Speci men Type: BLOOD SPECIMENOrdering Facility: [facility] Address: [address] [place] [address] Result Comment: <150 mg/dL, Normal 150-199 mg/dL, Borderline high 200-499 mg/dL, High >499 mg/dL, Very high Performed By: #### 2 4323-8, 29595-0 ####[facility] LABCLIA [id number] [id number] [id number] [facility] [id number] 11-13-2023 [id number] HNO ID: [id number] Author: NAILA NAVARRO, CARIDAD Service: ? Author Type: Registered Nurse Type: [id number] Filed: 11/13/2023 09:41 Note Text: The patient received a copy of EGD discharge instructions that contain information for how to contact the physician who performed the procedure and when to seek medical care. Normal [facility] EGD Study observation Narrat chirag 11-13-2023 [facility] Gastrointestinal Endoscopy Patient Name: Angelique Wynne Procedure [...] be scheduled. Procedure Code(s): --- Professional --- 83993, Esophagogastroduodenos copy, flexible, transoral; with biopsy, single or multiple Diagnosis Code(s): --- Professional --- Z01.818, Encounter for other preprocedural examination E66.01, Morbid (severe) obesity due to excess calories CPT copyright 2020 [place] [employer]. All rights reserved. The codes documented in this report are preliminary and upon engineering faculty review may be revised to meet current compliance requirements. Attending Participation: I personally performed the entire procedure. Scope In: 9:24:15 AM Scope Out: 9:28:13 AM MD Higinio Bailey MD 11/13/2023 9:34:13 AM This report has been signed electronically by Iván (more content not included)... PROVATION [facility] Radiology Study observation (narrative) [facility] HISTORY PHYSICALon HISTORY PHYSICAL HNO ID: [id number] Author: HIGINIO CAMPUZANO MD Service: General Surgery [...] her job soon. [facility] [...] ALLERGIES Allergen Reactions Oxaliplatin Anaphylaxis Went to [facility] ER 02/08/08 FAMILY HISTORY: FAMILY [...] (98 ?F) (Temporal) Ht 149.9 cm (4' 11.02) Wt 81.6 kg (180 lb) LMP 09/19/2017 SpO2 95% BMI 36.34 kg/m? General appearance: Morbidly obese Skin: Skin color, texture, turgor normal, no suspicious rashes or lesions He (more content not included)... Normal [facility] NURSING PROGon 11-13-2023 NURSING PROG HNO ID: [id number] Author: NAILA NAVARRO RN Service: ? Author Type: Registered Nurse Type: Nursing Progress Note Filed: 11/13/2023 09:44 Note Text: Pt. arrived to phase 2 resting on left side. SR up x 2, call light in reach. Naila Navarro RN Normal [facility] SURGICAL PATHOLOGYon 024 CASE REPORT Normal [facility] Comment on above: Order Comment: Speci men Type: TISSUE SPECIMENOrdering Facility: [facility] Address: [address] [place] [address] Result Comment: Surg ica Pathology Report Case: [id number] Authorizing Provider: Higinio Campuzano MD Collected: 11/13/2023 09:24 AM Ordering Location: Ambulatory Surgery Received: 11/13/2023 03:33 PM Pathologist: Jose Alberto Martinez MD Specimens: A) - Small Bowel, Duodenum, Biopsy B) - Stomach, Antrum, Biopsy, Antral bx for H/H C) - Esophagus, Distal, Biopsy D) - Esophagus, Mid, Biopsy Performed By: #### S ####[facility] LABIA [id number] [place] [address] [place] CLINICAL HISTORY Normal [facility] Comment on above: Order Comment: Speci men Type: TISSUE SPECIMENOrdering Facility: [facility] Address: [address] [place] [address] Performed By: #### S ####[facility] LABCLIA [id number] [place] [address] [place] FINAL DIAGNOSIS Normal [facility] Comment on above: Order Comment: Speci men Type: TISSUE SPECIMENOrdering Facility: [facility] Address: [address] [place] [address] Result Comment: A. S mall bowel, duodenum, [...] limits. PB/dkm 11/17/2023 Performed By: #### S ####[facility] LABCLIA [id number] [place] [address] [place] FINAL PERFORMING LAB Normal [facility] Comment on above: Order Comment: Speci men Type: TISSUE SPECIMENOrdering Facility: [facility] Address: [address] [place] [address] Result Comment: Diag nostic interpretation performed at [facility], [address] [place] [address] CLIA# [id number] [employer]: Robbin Asher M.D. Performed By: #### S ####[facility] LABCLIA [id number] [address] [place] GROSS DESCRIPTION Normal [facility] Comment on above: Order Comment: Speci men Type: TISSUE SPECIMENOrdering Facility: [facility] Address: [address] [place] [address] Result Comment: A. S mall Bowel, Duodenum, [...] in one cassette. Gross examination performed at [facility], [address] [place] [address] KK November 13, 2023 10:51 PM Performed By: #### S ####[facility] LABCLIA [id number] [id number] [place] [id number] [facility] Upper GI endoscopyon 11-12- 024 Upper GI endoscopy [facility] Gastrointestinal Endoscopy Patient Name: Angelique Wynne Procedure [...] be scheduled. Procedure Code(s): --- Professional --- 01429, Esophagogastroduodenos copy, flexible, transoral; with biopsy, single or multiple Diagnosis Code(s): --- Professional --- Z01.818, Encounter for other preprocedural examination E66.01, Morbid (severe) obesity due to excess calories CPT copyright 2020 [place] [employer]. All rights reserved. The codes documented in this report are preliminary and upon engineering faculty review may be revised to meet current [...] minimal. Estimated blood loss was minimal. Normal [facility] CNOVon 10-21-2023 CNOV Office Visit ([id number] ) ANGELIQUE WYNNE ([id number]) 1970 F Date Time Provider Department 10/21/23 8:30 AM BRODERICK ANSARI [id number] During your visit today, we recorded the following information about you: Temperature Pulse Blood pressure Weight 98 degrees 76/minute 149/74 81.6 kg Height 1.499 m Yaw Alas RN 10/21/2023 9:[address] Ansari has requested a pre operative upper endoscopy (EGD) for your bariatric surgery. This procedure is to examine your stomach and small intestines. To schedule an Upper Endoscopy (EGD): Call [phone] -Select Option to schedule an appointment -Request to schedule an upper endoscopy -There are multiple [facility] locations to choose from and the material scheduler will assist with appointment for procedure. [...] is especially important if you have had ibnex-ulybekpmq-gvsiw surgery in the past. How is an [...] be notified. (more content not included)... Normal [facility] 25(OH)D3 [facility] 25-hydroxyvitamin D3 [Mass/Vol] 32.9 ng/mL Normal 31.0-80.0 [facility] Comment on above: Order Comment: Speci men Type: BLOOD SPECIMENOrdering Facility: [facility] Address: [address] [place] [address] Result Comment: Clas sification of 25 [place] Vitamin D status: Deficiency/Insufficiency: < or = 30 ng/ml. Sufficiency/Optimal Levels: 31-80 ng/mL Toxicity: > 100 ng/mL. Test performed by chemiluminescent immunoassay. Performed By: #### 1 989-3 ####[facility] LABCLIA [id number] [place] [address] [place] CBC W Auto Differential pane l (Bld)on 10-17-2023 Basophils (Bld) [#/Vol] 0.07 10*3/uL Normal <0.11 [facility] Comment on above: Order Comment: Speci men Type: BLOOD SPECIMENOrdering Facility: [facility] Address: [address] [place] [address] Performed By: #### 5 7021-8 ####[facility] [id number] [place] [address] [place] Basophils/100 WBC (Bld) 1.0 % Normal [facility] Comment on above: Order Comment: Speci men Type: BLOOD SPECIMENOrdering Facility: [facility] Address: [address] [place] [address] Performed By: #### 5 7021-8 ####[facility] [id number] [place] [address] [place] Differential cell count method Nom (Bld) Auto Normal [facility] Comment on above: Order Comment: Speci men Type: BLOOD SPECIMENOrdering Facility: [facility] Address: [address] [place] [address] Performed By: #### 5 7021-8 ####[facility] MILLWNCLIA [id number] [place] [address] [place] Eosinophils (Bld) [#/Vol] 0.17 10*3/uL Normal <0.46 [facility] Comment on above: Order Comment: Speci men Type: BLOOD SPECIMENOrdering Facility: [facility] Address: [address] [place] [address] Performed By: #### 5 7021-8 ####[facility] GENERALLIA [id number] [place] [address] [place] Eosinophils/100 WBC (Bld) 2.3 % Normal [facility] Comment on above: Order Comment: Speci men Type: BLOOD SPECIMENOrdering Facility: [facility] Address: [address] [place] [address] Performed By: #### 5 7021-8 ####[facility] GENERALLIA [id number] [place] [address] [place] Erythrocyte distribution width (RBC) [Ratio] 12.4 % Normal 11.5-15.0 [facility] Comment on above: Order Comment: Speci men Type: BLOOD SPECIMENOrdering Facility: [facility] Address: [address] [place] [address] Performed By: #### 5 7021-8 ####[facility] HOSPITALNCLIA [id number] [place] [address] [place] Hematocrit (Bld) [Volume fraction] 43.6 % Normal 36.0-46.0 [facility] Comment on above: Order Comment: Speci men Type: BLOOD SPECIMENOrdering Facility: [facility] Address: [address] [place] [address] Performed By: #### 5 7021-8 ####[facility] GENERALLIA [id number] [place] [address] [place] Hemoglobin (Bld) [Mass/Vol] 14.5 g/dL Normal 11.5-15.5 [facility] Comment on above: Order Comment: Speci men Type: BLOOD SPECIMENOrdering Facility: [facility] Address: [address] [place] [address] Performed By: #### 5 7021-8 ####[facility]ITALWVALIA [id number] [place] [address] [place] Immature granulocytes (Bld) [#/Vol] 10*3/uL Normal <0.10 [facility] Comment on above: Order Comment: Speci men Type: BLOOD SPECIMENOrdering Facility: [facility] Address: [address] [place] [address] Performed By: #### 5 7021-8 ####[facility] SYSTEMSA [id number] [place] [address] [place] Immature granulocytes/100 WBC (Bld) 0.3 % Normal [facility] Comment on above: Order Comment: Speci men Type: BLOOD SPECIMENOrdering Facility: [facility] Address: [address] [place] [address] Performed By: #### 5 7021-8 ####[facility] GENERALLIA [id number] [place] [address] [place] Lymphocytes (Bld) [#/Vol] 2.19 10*3/uL Normal 1.00-4.00 [facility] Comment on above: Order Comment: Speci men Type: BLOOD SPECIMENOrdering Facility: [facility] Address: [address] [place] [address] Performed By: #### 5 7021-8 ####[facility] HOSPITALNCLIA [id number] [place] [address] [place] Lymphocytes/100 WBC (Bld) 29.9 % Normal [facility] Comment on above: Order Comment: Speci men Type: BLOOD SPECIMENOrdering Facility: [facility] Address: [address] [place], [place] [address] Performed By: #### 5 7021-8 ####[facility] JUANRAUL [id number] [place] [address] [place] MCH (RBC) [Entitic mass] 28.2 pg Normal 26.0-34.0 [facility] Comment on above: Order Comment: Speci men Type: BLOOD SPECIMENOrdering Facility: [facility] Address: [address] [place], [place] [address] Performed By: #### 5 7021-8 ####[facility] HOSPITALNCLAINEY [id number] [place] [address] [place] MCHC (RBC) [Mass/Vol] 33.3 g/dL Normal 30.5-36.0 [facility] Comment on above: Order Comment: Speci men Type: BLOOD SPECIMENOrdering Facility: [facility] Address: [address] [place], [place] [address] Performed By: #### 5 7021-8 ####[facility] HOSPITALNCA [id number] [place] [address] [place] MCV (RBC) [Entitic vol] 84.7 fL Normal 80.0-100.0 [facility] Comment on above: Order Comment: Speci men Type: BLOOD SPECIMENOrdering Facility: [facility] Address: [address] [place], [place] [address] Performed By: #### 5 7021-8 ####[facility] SYSTEMSA [id number] [place] [address] [place] Monocytes (Bld) [#/Vol] 0.38 10*3/uL Normal <0.87 [facility] Comment on above: Order Comment: Speci men Type: BLOOD SPECIMENOrdering Facility: [facility] Address: [address] [place], [place] [address] Performed By: #### 5 7021-8 ####[facility] MILLWNCLIA [id number] [place] [address] [place] Monocytes/100 WBC (Bld) 5.2 % Normal [facility] Comment on above: Order Comment: Speci men Type: BLOOD SPECIMENOrdering Facility: [facility] Address: [address] [place] [address] Performed By: #### 5 7021-8 ####[facility] HOSPITALNCLIA [id number] [place] [address] [place] Neutrophils (Bld) [#/Vol] 4.50 10*3/uL Normal 1.45-7.50 [facility] Comment on above: Order Comment: Speci men Type: BLOOD SPECIMENOrdering Facility: [facility] Address: [address] [place] [address] Performed By: #### 5 7021-8 ####[facility] GENERALLIA [id number] [place] [address] [place] Neutrophils/100 WBC (Bld) 61.3 % Normal [facility] Comment on above: Order Comment: Speci men Type: BLOOD SPECIMENOrdering Facility: [facility] Address: [address] [place] [address] Performed By: #### 5 7021-8 ####[facility] HOSPITALNCLIA [id number] [place] [address] [place] Nucleated RBC (Bld) [#/Vol] 10*3/uL Normal <0.01 [facility] Comment on above: Order Comment: Speci men Type: BLOOD SPECIMENOrdering Facility: [facility] Address: [address] [place] [address] Performed By: #### 5 7021-8 ####[facility] HOSPITALNCLIA [id number] [place] [id number] [place] Nucleated RBC/100 WBC (Bld) [Ratio] 0.0 /100 WBC Normal [facility] Comment on above: Order Comment: Speci men Type: BLOOD SPECIMENOrdering Facility: [facility] Address: [address] [place] [address] Performed By: #### 5 7021-8 ####[facility] HOSPITALNCJOSEA [id number] [place] [address] [place] Platelet mean volume (Bld) [Entitic vol] 10.3 fL Normal 9.0-12.7 [facility] Comment on above: Order Comment: Speci men Type: BLOOD SPECIMENOrdering Facility: [facility] Address: [address] [place] [address] Performed By: #### 5 7021-8 ####[facility] HOSPITALNCA [id number] [place] [address] [place] Platelets (Bld) [#/Vol] 303 10*3/uL Normal 150-400 [facility] Comment on above: Order Comment: Speci men Type: BLOOD SPECIMENOrdering Facility: [facility] Address: [address] [place] [address] Performed By: #### 5 7021-8 ####[facility] HOSPITALNCLIA [id number] [place] [address] [place] RBC (Bld) [#/Vol] 5.15 10*6/uL Normal 3.90-5.20 [facility] Comment on above: Order Comment: Speci men Type: BLOOD SPECIMENOrdering Facility: [facility] Address: [address] [place] [address] Performed By: #### 5 7021-8 ####[facility] HOSPITALNCLIA [id number] [place] [address] [place] WBC (Bld) [#/Vol] 7.33 10*3/uL Normal 3.70-11.00 [facility] Comment on above: Order Comment: Speci men Type: BLOOD SPECIMENOrdering Facility: [facility] Address: [place] [address] Performed By: #### 5 7021-8 ####[facility] JELANI SINGH [id number] [place] [id number] [place] [address] OF [facility] CNNURSEon 10-17-2023 CNNURSE Nurse Visit (FAMPWS) ANGELIQUE WYNNE ([id number]) 1970 F Date Time Provider Department 10/17/23 11:30 AM [place] [facility] During your visit today, we recorded the following information about you: Earline Zabala LPN 10/17/2023 11:30 AM Signed Patient presents for EKG per Rachel Mcmillan CNP. Denies any problems at this time. Tolerated procedure well. Earline Zabala LPN Referring Provider: RACHEL MCMILLAN [[id number]] Allergies As of Date: 10/17/2023 Noted Allergy Reaction OXALIPLATIN 02/22/2008 10 - Anaphylaxis Comments: Went to [facility] ER 02/08/08 Date Reviewed: 10/07/2023 Reviewed by: Rachel Escalante PSYD - Fully Assessed Reason for Visit: EKG [793] Visit Diagnosis:Class 2 severe obesity with serious comorbidity and body mass index (BMI) of 35.0 to 35.9 in adult, unspecified obesity type (HCC) [E66.01, Z68.35] Order(s):ECG COMPLETE [ECG01] Order #: [id number] Prescriptions as of 10/17/2023 - lisinopril (ZESTRIL) [...] Status:Closed by EARLINE ZABALA on 10/17/23 Normal [facility] Comprehensive metabolic 2000 panelon 10-17-2023 Albumin [Mass/Vol] 4.4 g/dL Normal 3.9-4.9 [facility] Comment on above: Order Comment: Speci men Type: BLOOD SPECIMENOrdering Facility: [facility] Address: [address] [place] [address] Performed By: #### 2 4323-8 ####[facility] MILLWNCLIA [id number] [place] [address] [place] ALP [Catalytic activity/Vol] 80 U/L Normal 34-123 [facility] Comment on above: Order Comment: Speci men Type: BLOOD SPECIMENOrdering Facility: [facility] Address: [address] [place] [address] Performed By: #### 2 4323-8 ####[facility] HOSPITALNCLIA [id number] [place] [address] [place] ALT [Catalytic activity/Vol] 18 U/L Normal 7-38 [facility] Comment on above: Order Comment: Speci men Type: BLOOD SPECIMENOrdering Facility: [facility] Address: [address] [place] [address] Performed By: #### 2 4323-8 ####[facility] GENERALLIA [id number] [place] [address] [place] Anion gap [Moles/Vol] 4 mmol/L Low 9-18 [facility] Comment on above: Order Comment: Speci men Type: BLOOD SPECIMENOrdering Facility: [facility] Address: [address] [place] [address] Performed By: #### 2 4323-8 ####[facility] MILLTOWNCLIA [id number] [place] [address] [place] AST [Catalytic activity/Vol] 15 U/L Normal 13-35 [facility] Comment on above: Order Comment: Speci men Type: BLOOD SPECIMENOrdering Facility: [facility] Address: [address] [place] [address] Performed By: #### 2 4323-8 ####[facility] TRAVISSLIM [id number] [place] [address] [place] Bilirubin [Mass/Vol] 0.6 mg/dL Normal 0.2-1.3 [facility] Comment on above: Order Comment: Speci men Type: BLOOD SPECIMENOrdering Facility: [facility] Address: [address] [place] [address] Performed By: #### 2 4323-8 ####[facility] HOSPITALSLIM [id number] [place] [address] [place] Calcium [Mass/Vol] 10.1 mg/dL Normal 8.5-10.2 [facility] Comment on above: Order Comment: Speci men Type: BLOOD SPECIMENOrdering Facility: [facility] Address: [address] [place] [address] Performed By: #### 2 4323-8 ####[facility] HOSPITALSLIM [id number] [place] [address] [place] Chloride [Moles/Vol] 103 mmol/L Normal 97-105 [facility] Comment on above: Order Comment: Speci men Type: BLOOD SPECIMENOrdering Facility: [facility] Address: [address] [place] [address] Performed By: #### 2 4323-8 ####[facility] HOSPITALSOOLIA [id number] [place] [address] [place] CO2 [Moles/Vol] 32 mmol/L High 22-30 [facility] Comment on above: Order Comment: Speci men Type: BLOOD SPECIMENOrdering Facility: [facility] Address: [address] [place] [address] Performed By: #### 2 4323-8 ####[facility] HOSPITALNCLIA [id number] [place] [address] [place] Creatinine [Mass/Vol] 0.86 mg/dL Normal 0.58-0.96 [facility] Comment on above: Order Comment: Yolande dodge Type: BLOOD SPECIMENOrdering Facility: [facility] Address: [address] [place] [address] Performed By: #### 2 4323-8 ####[facility] [id number] [place] [address] [place] Creatinine and Glomerular filtration rate.predicted panel (S/P/Bld) 80 mL/min/1.73m??? Normal >=60 [facility] Comment on above: Order Comment: Yolande dodge Type: BLOOD SPECIMENOrdering Facility: [facility] Address: [address] [place] [address] Result Comment: Patricia mated Glomerular Filtration Rate [...] actual GFR. Performed By: #### 2 4323-8 ####[facility] HOSPITALNCLI [id number] [place] [address] [place] Glucose [Mass/Vol] 152 mg/dL High 74-99 [facility] Comment on above: Order Comment: Yolande dodge Type: BLOOD SPECIMENOrdering Facility: [facility] Address: [address] [place] [address] Result Comment: The [place] Diabetes Association (ADA) provides guidance for cutoff [...] Standards of Medical Care in Diabetes 2016, [place] [employer] Association. Diabetes Care. 2016.39(Suppl 1). Performed By: #### 2 4323-8 ####[facility] MILLWSOOLIA [id number] [place] [address] [place] Potassium [Moles/Vol] 4.4 mmol/L Normal 3.7-5.1 [facility] Comment on above: Order Comment: Yolande dodge Type: BLOOD SPECIMENOrdering Facility: [facility] Address: [address] [place] [address] Performed By: #### 2 4323-8 ####[facility] HOSPITALSOOLIA [id number] [place] [address] [place] Protein [Mass/Vol] 7.5 g/dL Normal 6.3-8.0 [facility] Comment on above: Order Comment: Yolande dodge Type: BLOOD SPECIMENOrdering Facility: [facility] Address: [address] [place] [address] Performed By: #### 2 4323-8 ####[facility] GENERALLIA [id number] [place] [address] [place] Sodium [Moles/Vol] 139 mmol/L Normal 136-144 [facility] Comment on above: Order Comment: Yolande dodge Type: BLOOD SPECIMENOrdering Facility: [facility] Address: [address] [place] [address] Performed By: #### 2 4323-8 ####[facility] HOSPITALWNCLIA [id number] [place] [address] [place] Urea nitrogen [Mass/Vol] 13 mg/dL Normal 7-21 [facility] Comment on above: Order Comment: Speci men Type: BLOOD SPECIMENOrdering Facility: [facility] Address: [address] [place] [address] Performed By: #### 2 4323-8 ####[facility] JELANI MARTINEZRED [facility]KE IN[facility] HOSPITALMichael [id number] [place] [address] [place] [id number] 10-17-2023 ECG01 Ventricular Rate : 7 7 BPM Atrial Rate : 77 BPM P-R Interval : 132 ms QRS Duration : 68 ms Q-T Interval : 374 ms QTC Calculation(Bazett) : 423 ms Calculated P [place] : 17 degrees Calculated R [place] : 75 degrees Calculated T [place] : 40 degrees NORMAL SINUS RHYTHM NORMAL ECG Confirmed by MD BONILLA GREGORY () on 10/20/2023 8:30:23 AM NAME : ANGELIQUE WYNNE PID : [id number] : 1970 Gender : Female Race : ORD : Procedure Date : Oct 17 2023 11:40:18 Edit Date : Oct 20 2023 08:30:25 Diagnosis: NORMAL SINUS RHYTHM NORMAL ECG Confirmed by MD BONILLA GREGORY () on 10/20/2023 8:30:23 AM Test Reason : Location : 185 : [facility] Overread By : MD BONILLA GREGORY Edited By : MD BONILLA GREGORY Referred By : RACHEL MCMILLAN Acquired by : EARLINE ZABALA Normal [facility] Ferritin SerPl-mCncon 2023 Ferritin [Mass/Vol] 126.0 ng/mL Normal 14.7-205.1 [facility] Comment on above: Order Comment: Speci men Type: BLOOD SPECIMENOrdering Facility: [facility] Address: [address] [place] [address] Performed By: #### 2 132-9, 2276-4, 2284-8 ####[facility] LABCLIA [id number] [facility] [id number] [address] [place] Folate SerPl-mCncon 10-17-19 24 Folate [Mass/Vol] 12.7 ng/mL Normal >4.[address] [facility] Comment on above: Order Comment: Speci men Type: BLOOD SPECIMENOrdering Facility: [facility] Address: [address] [place] [address] Performed By: #### 2 132-9, 2276-4, 2284-8 ####[facility] LABCLIA [id number] [place] [address] [place] HbA1c (Bld)on 10-17-2023 Average glucose Estimated from glycated hemoglobin (Bld) [Mass/Vol] 151 mg/dL Normal [facility] Comment on above: Order Comment: Yolande dodge Type: BLOOD SPECIMENOrdering Facility: [facility] Address: [address] [place] [address] Result Comment: eAG: (Estimated average glucose) is a calculated value from HgbA1c and is sales account representative of the average blood glucose level in the last 2-3 month period. Performed By: #### 5 5454-3 ####[facility] LABCLIA [id number] [place] [address] [place] HbA1c (Bld) [Mass fraction] 6.9 % High 4.3-5.6 [facility] Comment on above: Order Comment: Yolande dodge Type: BLOOD SPECIMENOrdering Facility: [facility] Address: [address] [place] [address] Result Comment: [place] Diabetes Association guidelines indicate that patients with HgbA1c in the range 5.7-6.4% are at increased risk for development of diabetes, and intervention by lifestyle modification may be beneficial. HgbA1c greater or equal to 6.5% is considered diagnostic of diabetes. Performed By: #### 5 5454-3 ####[facility] LABCLIA [id number] [place] [address] [place] Iron and Iron binding capaci ty panelon 10-17-2023 Iron [Mass/Vol] 83 ug/dL Normal 41-186 [facility] Comment on above: Order Comment: Yolande dodge Type: BLOOD SPECIMENOrdering Facility: [facility] Address: [address] [place] [address] Performed By: #### 3 016-3, 55711-2, 83526-5 ####[facility] LABCLIA [id number] [place] [address] [place]#### 74829-2 ####[facility] LABCLIA [id number] [id number] [place] [address] [place] Iron binding capacity [Mass/Vol] 279 ug/dL Normal 232-386 [facility] Comment on above: Order Comment: Speci men Type: BLOOD SPECIMENOrdering Facility: [facility] Address: [address] [place] [address] Performed By: #### 3 016-3, 65020-0, 18119-8 ####[facility] LABCLIA [id number] [place] [address] [place]#### 43809-9 ####[facility] LABCLIA [id number] [address] [id number] [place] [address] [place] Iron/TIBC [Molar ratio] 29.7 % Normal 15.0-57.0 [facility] Comment on above: Order Comment: Speci men Type: BLOOD SPECIMENOrdering Facility: [facility] Address: [address] [place] [id number] Performed By: #### 3 016-3, 61234-7, 32742-0 ####[facility] LABCLIA [id number] [place] [address] [place]#### 49562-3 ####[facility] LABCLIA [id number] [place] AV[address]EDES[id number] [id number] [place] [address] [place] Lipid 1996 panelon 4 Cholesterol [Mass/Vol] 189 mg/dL Normal <200 [facility] Comment on above: Order Comment: Speci men Type: BLOOD SPECIMENOrdering Facility: [facility] Address: [address] [place] [address] Result Comment: <200 mg/dL, Desirable 200-239 mg/dL, Borderline high >239 mg/dL, High Performed By: #### 3 016-3, 23853-9, 94357-3 ####[facility] LABCLIA [id number] [place] [address] [place]#### 92546-4 ####[facility] LABCLIA [id number] [address] [id number] [place] [address] [place] Cholesterol in HDL [Mass/Vol] 55 mg/dL Normal >39 [facility] Comment on above: Order Comment: Speci men Type: BLOOD SPECIMENOrdering Facility: [facility] Address: [address] [place] [address] Result Comment: 40-5 9 mg/dL, Acceptable >59 mg/dL, High: Negative risk factor for coronary heart disease <40 mg/dL, Low: Positive risk factor for coronary heart disease Performed By: #### 3 016-3, 79826-8, 58763-7 ####[facility] LABCLIA [id number] [place] [address] [place]#### 65881-5 ####[facility] LABCLIA [id number] [address] [id number] [place] [address] [place] [facility] Cholesterol in LDL [Mass/Vol] 115 mg/dL High <100 [facility] Comment on above: Order Comment: Speci men Type: BLOOD SPECIMENOrdering Facility: [facility] Address: [address] [place] [address] Result Comment: <100 mg/dL, Optimal 100-129 mg/dL, Near optimal/above optimal 130-159 mg/dL, Borderline high 160-189 mg/dL, High >189 mg/dL, Very high Secondary prevention optimal LDL Cholesterol levels are recommended to be < 70 mg/dL Performed By: #### 3 016-3, 21527-0, 86893-2 ####[facility] LABCLIA [id number] [address] [place]#### 36562-1 ####[facility]CLIA [id number] [address] OF [facility] [id number] [address] STATES OF [facility] Cholesterol in LDL/Cholesterol in HDL [Mass ratio] 2.09 {ratio} Normal <2.54 [facility] Comment on above: Order Comment: Hectori men Type: BLOOD SPECIMENOrdering Facility: [facility] Address: [address] [place] [address] Result Comment: Johanne russ: 1. National Cholesterol Education Program ATP III Guideline At-A-Glance Quick Desk Reference: National Heart, Lung, and Blood [place]. National Institutes of Health. 2001: NIH Publication No. 01-3305. 2. An International Atherosclerosis Society position paper: global recommendations for the management of dyslipidemia: executive summary, Atherosclerosis. 2014: 232(2):410-413. Performed By: #### 3 016-3, 65781-9, 81003-2 ####[facility] LABCLIA [id number] [address] [place]#### 01644-2 ####[facility]CLIA [id number] [address] [id number] [address] [place] Cholesterol in VLDL [Mass/Vol] 19 mg/dL Normal <30 [facility] Comment on above: Order Comment: Speci men Type: BLOOD SPECIMENOrdering Facility: [facility] Address: [address] [place] [address] Performed By: #### 3 016-3, 50489-8, 29630-0 ####[facility] LABCLIA [id number] [place] [address] [place]#### 14254-1 ####[facility]CLIA [id number] [address] STATES OF [facility] [id number] [place] [address] [place] Cholesterol non HDL [Mass/Vol] 134 mg/dL High <130 [facility] Comment on above: Order Comment: Speci men Type: BLOOD SPECIMENOrdering Facility: [facility] Address: [address] [place] [address] Result Comment: <130 mg/dL, Optimal 130-159 mg/dL, Near optimal/above optimal 160-189 mg/dL, Borderline high 190-219 mg/dL, High >219 mg/dL, Very high Secondary prevention optimal non HDL Cholesterol levels are recommended to be <100 mg/dL Performed By: #### 3 016-3, 05299-7, 35436-4 ####[facility] LABCLIA [id number] [place] [address] [place]#### 96118-4 ####[facility]CLIA [id number] [place] [address] [place] [facility] [id number] [place] [address] [place] Cholesterol.total/Cho lesterol in HDL [Mass ratio] 3.44 {ratio} Normal <5.10 [facility] Comment on above: Order Comment: Speci men Type: BLOOD SPECIMENOrdering Facility: [facility] Address: [address] [place], [place] [address] Performed By: #### 3 016-3, 42227-5, 27031-5 ####[facility]CLIA [id number] [place] [address] [place]#### 99176-1 ####[facility]CLIA [id number] [address] STATES [facility] [id number] [place] [address] [place] FASTING TIME 12 hrs Normal [facility] Comment on above: Order Comment: Speci men Type: BLOOD SPECIMENOrdering Facility: [facility] Address: [address] [place] [address] Performed By: #### 3 016-3, 96294-8, 19599-0 ####[facility] LABCLIA [id number] [place] [address] [place]#### 19117-4 ####[facility] LABCLIA [id number] [place] [id number] [place] [facility] [id number] [place] [address] [place] Triglyceride [Mass/Vol] 97 mg/dL Normal <150 [facility] Comment on above: Order Comment: Speci men Type: BLOOD SPECIMENOrdering Facility: [facility] Address: [address] [place], [place] [address] Result Comment: <150 mg/dL, Normal 150-199 mg/dL, Borderline high 200-499 mg/dL, High >499 mg/dL, Very high Performed By: #### 3 016-3, 83447-8, 49192-4 ####[facility] LABCLIA [id number] [place] [address] [place]#### 74376-9 ####[facility] LABCLIA [id number] [address] [id number] [place] [address] [place] NT[facility]16 Natriuretic peptide.B prohormone N-Terminal [Mass/Vol] <36 Normal <125 [facility] Comment on above: Order Comment: Speci men Type: BLOOD SPECIMENOrdering Facility: [facility] Address: [address] [place] [address] Performed By: #### 3 016-3, 77652-8, 86653-2 ####[facility] LABCLIA [id number] [place] [address] [place]#### 18577-7 ####[facility]CLIA [id number] [id number] [place] [address] [place] TSH SerPl-aCncon 10-17-2023 TSH Qn 1.370 m[IU]/L Normal 0.270-4.200 [facility] Comment on above: Order Comment: Speci men Type: BLOOD SPECIMENOrdering Facility: [facility] Address: [address] [place] [address] Performed By: #### 3 016-3, 06183-2, 78833-2 ####[facility] LABCLIA [id number] [place] [address] [place]#### 81727-1 ####[facility] LABCLIA [id number] [address] STATES OF [facility] [id number] [place] [id number] [place] US ABD RIGHT UPPER QUADRANTo n 10-17-2023 US ABD RIGHT UPPER QUADRANT * * *Final Report* * * DATE OF EXAM: Oct 17 2023 10:50AM [facility]U 1032 - US ABD RIGHT UPPER QUADRANT [...] No hydronephrosis. Ascites: None. IMPRESSION: Hepatic steatosis. Advertising Operations Coordinator: ROYA Transcribe Date/Time: Oct 18 2023 6:43P Dictated by : SHAE MAZARIEGOS DO This examination was interpreted and the report reviewed and electronically signed by: SHAE MAZARIEGOS DO on Oct 18 2023 6:45PM EST [id number] Normal [facility] VITAMIN B1 (THIAMINE), WHOLE BLOODon 10-17-2023 Thiamine (Bld) [Moles/Vol] 136.8 nmol/L Normal 84.3-213.3 [facility] Comment on above: Order Comment: Speci men Type: BLOOD SPECIMENOrdering Facility: [facility] Address: [address] [place] [address] Result Comment: This assay measures the concentration of thiamine diphosphate (TDP), the primary active form of vitamin B1. Approximately 90 percent of vitamin B1 present in whole blood is TDP. Thiamine and thiamine monophosphate, which comprise the remaining 10 percent, are not measured. This test was developed and its performance characteristics determined by [facility]'s Gregorio Devlin [facility] Pathology and Laboratory Medicine [place] ([facility]). It has not been cleared or approved by the FDA. [facility] is regulated under CLIA as qualified to perform high-complexity testing. This test is used for clinical purposes. It should not be regarded as investigational or for research. Performed By: #### B 1WB ####[facility] [id number] [address] OF [place] Vit B12 [facility] 024 Cobalamin (Vitamin B12) [Mass/Vol] 257 pg/mL Normal 232-1245 [facility] Comment on above: Order Comment: Speci men Type: BLOOD SPECIMENOrdering Facility: [facility] Address: [address] [place] [address] Performed By: #### 2 132-9, 2276-4, 2284-8 ####[facility] [id number] [address] STATES OF [facility] XR CHEST 2V FRONTAL/LATon XR CHEST 2V [...] the spine. IMPRESSION: No acute radiographic abnormality. Advertising Operations Coordinator: ROYA Transcribe Date/Time: Oct 17 2023 3:07P Dictated by : AMELIA SR MD This examination was interpreted and the report reviewed and electronically signed by: AMELIA SR MD on Oct 17 2023 3:08PM EST [id number] Normal [facility] XR Chest PA and Lateralon IMPRESSION: No acute radiographic abnormality. Advertising Operations Coordinator: [facility] Transcribe Date/Time: Oct 17 2023 3:07P Dictated by : AMELIA SR MD This examination was interpreted and the report reviewed and electronically signed by: AMELIA SR MD on Oct 17 2023 3:08PM EST DIVISION OF RADIOLOGY * * *Final Report* [...] in the spine. DIVISION OF RADIOLOGY Provider, [facility] - 10/17/2023 * * *Final Report* [...] spine. IMPRESSION IMPRESSION: No acute radiographic abnormality. Advertising Operations Coordinator: PSCB Transcribe Date/Time: Oct 17 2023 3:07P Dictated by : AMELIA SR MD This examination was interpreted and the report reviewed and electronically signed by: AMELIA SR MD on Oct 17 2023 3:08PM EST [facility] Radiology Study observation (narrative) [facility] XR Chest PA and LateralOrder ed By: [facility] Provider on 10-17-2023 [facility] GUICHO SCREENINGon 06-17-2022 [facility] Vital Signs Date Time Vital Sign Value Performing Clinician Facility 07-13-2024 13:10-0500 Body mass index (BMI) [Ratio] 36.96 kg/m2 Linda Menjivar APRN.CNP Work Phone: [facility] 07-13-2024 13:10-0500 Body weight 83.01 kg Linda Menjivar APRN.CNP Work Phone: [facility] 07-13-2024 13:10-0500 Diastolic blood pressure 80 mm[Hg] Linda Menjivar APRN.CNP Work Phone: [facility] 07-13-2024 13:10-0500 Heart rate 75 /min Linda Menjivar APRN.CNP Work Phone: [facility] 07-13-2024 13:10-0500 Systolic blood pressure 132 mm[Hg] Linda Paxton LEE Work Phone: [facility] 06-09-2024 09:35-0500 Diastolic blood pressure 74 mm[Hg] Luis Staley MD Work Phone: [facility] 06-09-2024 09:35-0500 Systolic blood pressure 138 mm[Hg] Luis Staley MD Work Phone: [facility] 06-09-2024 09:03-0500 Body height 149.9 cm Luis Staley MD Work Phone: [facility] 06-09-2024 09:03-0500 Body mass index (BMI) [Ratio] 37.37 kg/m2 Luis Staley MD Work Phone: [facility] 06-09-2024 09:03-0500 Body weight 83.92 kg Luis Staley MD Work Phone: [facility] 06-09-2024 09:03-0500 Heart rate 85 /min Luis Staley MD Work Phone: [facility] 06-09-2024 09:03-0500 SaO2% (BldA) [Mass fraction] 96 % Luis Staley MD Work Phone: [facility] 05-05-2024 08:42-0500 Body height 149.[address] Work Phone: [facility] 05-05-2024 08:42-0500 Body mass index (BMI) [Ratio] 37.41 kg/m2 Rolfdonta Yai RD Work Phone: [facility] 05-05-2024 08:42-0500 Body weight 84.[address] Work Phone: [facility] 04-20-2024 13:49-0500 Body height 149.9 cm Broderick Ansari MD Work Phone: [facility] 04-20-2024 13:49-0500 Body mass index (BMI) [Ratio] 37.38 kg/m2 Broderick Ansari MD Work Phone: [facility] 04-20-2024 13:49-0500 Body temperature 97.5 [degF] Broderick Ansari MD Work Phone: [facility] 04-20-2024 13:49-0500 Body weight 84 kg Broderick Ansari MD Work Phone: [facility] 04-20-2024 13:49-0500 Diastolic blood pressure 79 mm[Hg] Broderick Ansari MD Work Phone: [facility] 04-20-2024 13:49-0500 Heart rate 90 /min Broderick Ansari MD Work Phone: [facility] 04-20-2024 13:49-0500 SaO2% (BldA) [Mass fraction] 96 % Broderick Ansari MD Work Phone: [facility] 04-20-2024 13:49-0500 Systolic blood pressure 134 mm[Hg] Broderick Ansari MD Work Phone: [facility] 12-08-2023 09:35-0400 Body height 149.9 cm Jesus Ortiz MD Work Phone: [facility] 12-08-2023 09:35-0400 Body mass index (BMI) [Ratio] 36.36 kg/m2 Jesus Ortiz MD Work Phone: [facility] 12-08-2023 09:35-0400 Body weight 81.65 kg Jesus Ortiz MD Work Phone: [facility] 12-08-2023 09:35-0400 Diastolic blood pressure 79 mm[Hg] Jesus Ortiz MD Work Phone: [facility] 12-08-2023 09:35-0400 Heart rate 79 /min Jesus Ortiz MD Work Phone: [facility] 12-08-2023 09:35-0400 SaO2% (BldA) [Mass fraction] 97 % Jesus Ortiz MD Work Phone: [facility] 12-08-2023 09:35-0400 Systolic blood pressure 123 mm[Hg] Jesus Ortiz MD Work Phone: [facility] 12-05-2023 09:58-0400 Body mass index (BMI) [Ratio] 37.14 kg/m2 Luis Staley MD Work Phone: [facility] 12-05-2023 09:58-0400 Body weight 83.46 kg Luis Staley MD Work Phone: [facility] 12-05-2023 09:58-0400 Diastolic blood pressure 75 mm[Hg] Luis Staley MD Work Phone: [facility] 12-05-2023 09:58-0400 Heart rate 81 /min Luis Staley MD Work Phone: [facility] 12-05-2023 09:58-0400 SaO2% (BldA) [Mass fraction] 98 % Luis Staley MD Work Phone: [facility] 12-05-2023 09:58-0400 Systolic blood pressure 118 mm[Hg] Luis Staley MD Work Phone: [facility] 11-28-2023 09:05-0400 Body height 149.[address] Work Phone: [facility] 11-28-2023 09:05-0400 Body mass index (BMI) [Ratio] 36.37 kg/m2 Rolf Patino RD Work Phone: [facility] 11-28-2023 09:05-0400 Body weight 81.[address] Work Phone: [facility] Comment on above: verbal, per patient 11-13-2023 10:05-0400 Diastolic blood pressure 80 mm[Hg] Higinio Campuzano MD Work Phone: [facility] 11-13-2023 10:05-0400 Heart rate 86 /min Higinio Campuzano MD Work Phone: [facility] 11-13-2023 10:05-0400 Respiratory rate 16 /min Higinio Campuzano MD Work Phone: [facility] 11-13-2023 10:05-0400 SaO2% (BldA) [Mass fraction] 97 % Higinio Campuzano MD Work Phone: [facility] 11-13-2023 10:05-0400 Systolic blood pressure 129 mm[Hg] Higinio Campuzano MD Work Phone: [facility] 11-13-2023 08:30-0400 Body temperature 97.11 [degF] Higinio Campuzano MD Work Phone: [facility] 11-06-2023 07:50-0400 Body height 149.[address] Work Phone: [facility] 11-06-2023 07:50-0400 Body mass index (BMI) [Ratio] 36.33 kg/m2 Rolf Patino RD Work Phone: [facility] 11-06-2023 07:50-0400 Body weight 81.[address] Work Phone: [facility] Comment on above: verbal, per patient 10-21-2023 08:27-0400 Body height 149.9 cm Broderick Ansari MD Work Phone: [facility] 10-21-2023 08:27-0400 Body mass index (BMI) [Ratio] 36.34 kg/m2 Broderick Ansari MD Work Phone: [facility] 10-21-2023 08:27-0400 Body temperature 98.01 [degF] Broderick Ansari MD Work Phone: [facility] 10-21-2023 08:27-0400 Body weight 81.65 kg Broderick Ansari MD Work Phone: [facility] 10-21-2023 08:27-0400 Diastolic blood pressure 74 mm[Hg] Broderick Ansari MD Work Phone: [facility] 10-21-2023 08:27-0400 Heart rate 76 /min Broderick Ansari MD Work Phone: [facility] 10-21-2023 08:27-0400 SaO2% (BldA) [Mass fraction] 95 % Broderick Ansari MD Work Phone: [facility] 10-21-2023 08:27-0400 Systolic blood pressure 149 mm[Hg] Broderick Ansari MD Work Phone: [facility] 10-02-2023 08:54-0400 Body height 149.9 cm Rachel Mcmillan BLEACH CHLORINATOR.VEGETABLE WORKER Work Phone: [facility] 10-02-2023 08:54-0400 Body mass index (BMI) [Ratio] 35.95 kg/m2 Rachel Mcmillan BLEACH CHLORINATOR.VEGETABLE WORKER Work Phone: [facility] 10-02-2023 08:54-0400 Body weight 80.74 kg Rachel Mcmillan BLEACH CHLORINATOR.VEGETABLE WORKER Work Phone: [facility] 12-13-2022 10:46-0400 Body height 152.4 cm Luis Staley MD Work Phone: [facility] 12-13-2022 10:46-0400 Body weight 82.56 kg Luis Staley MD Work Phone: [facility] 12-13-2022 10:46-0400 Diastolic blood pressure 76 mm[Hg] Luis Staley MD Work Phone: [facility] 12-13-2022 10:46-0400 Heart rate 84 /min Luis Staley MD Work Phone: [facility] 12-13-2022 10:46-0400 SaO2% (BldA) [Mass fraction] 97 % Luis Staley MD Work Phone: [facility] 12-13-2022 10:46-0400 Systolic blood pressure 130 mm[Hg] Luis Staley MD Work Phone: [facility] 12-19-2021 09:36-0400 Body weight 83.01 kg Luis Staley MD Work Phone: [facility] 12-19-2021 09:36-0400 Diastolic blood pressure 80 mm[Hg] Luis Staley MD Work Phone: [facility] 12-19-2021 09:36-0400 Heart rate 80 /min Luis Staley MD Work Phone: [facility] 12-19-2021 09:36-0400 Respiratory rate 16 /min Luis Staley MD Work Phone: [facility] 12-19-2021 09:36-0400 Systolic blood pressure 118 mm[Hg] Luis Staley MD Work Phone: [facility] Encounters Encounter Date Encounter Type Care Provider Facility Start: 09-11-2024 End: 09-17-2024 Follow-up encounter Luis Staley MD Work Phone: [facility] Start: 09-10-2024 End: 09-10-2024 ambulatory LUIS STALEY Facility:[facility] Start: 08-10-2024 End: 08-10-2024 ambulatory LINDA A SUPPAN Facility:[facility] Start: 08-10-2024 End: 08-10-2024 Office outpatient visit 15 minutes Linda A Suppan BLEACH CHLORINATOR.VEGETABLE WORKER Work Phone: [facility] Comment on above: Obesity, Class II, B NH 35-39.9 (Primary Dx); Diabetes mellitus without complication (HCC) Start: 07-13-2024 End: 07-13-2024 ambulatory LINDA A SUPPAN Facility:[facility] Start: 07-13-2024 End: 07-13-2024 Office outpatient visit 15 minutes Linda A Suppan BLEACH CHLORINATOR.VEGETABLE WORKER Work Phone: [facility] Comment on above: Diabetes mellitus wi thout complication (HCC) Start: 06-28-2024 End: 06-28-2024 ambulatory Linda A Suppan BLEACH CHLORINATOR.VEGETABLE WORKER Work Phone: [facility] [place] Comment on above: Medication - Trulici ty Start: 06-10-2024 End: 06-10-2024 Telephone encounter Do Mcclain BLEACH CHLORINATOR.VEGETABLE WORKER Work Phone: NEUROLOGY Comment on above: Sleep PAP (Complianc e report) Start: 06-09-2024 End: 06-09-2024 ambulatory LUIS Francesco REBEKA Facility:[facility] Start: 06-09-2024 End: 06-09-2024 Patient encounter procedure Luis Staley MD Work Phone: [facility] [place] Comment on above: Mixed hyperlipidemia (Primary Dx); Essential hypertension; Diabetes mellitus without complication (HCC); Personal history of rectal cancer; Obesity, Class II, BMI 35-39.9; Encounter for screening mammogram for malignant neoplasm of breast Start: 06-01-2024 End: 06-01-2024 Telephone encounter Luis Staley MD Work Phone: [facility] [place] Comment on above: Orders Start: 06-01-2024 End: 06-01-2024 ambulatory LUIS STALEY Facility:[facility] Start: 05-10-2024 End: 05-11-2024 Admission to same day surgery center Broderick Ansari MD Work Phone: General Surgery Comment on above: Upcoming surgery Start: 05-10-2024 End: 05-11-2024 ambulatory Do Mcclain BLEACH CHLORINATOR.VEGETABLE WORKER Work Phone: Neurology Comment on above: JANA (obstructive sle ep apnea) (Primary Dx) Start: 05-10-2024 End: 05-10-2024 Telemedicine consultation with patient Do Mcclain APRN.VEGETABLE WORKER Work Phone: Neurology Start: 05-05-2024 End: 05-05-2024 Admission to same day surgery center Rolf Patino RD Work Phone: General Surgery Comment on above: Reassessment; Patien t Education Start: 05-05-2024 End: 05-05-[address] Work Phone: General Surgery Start: 04-27-2024 End: 04-27-2024 ambulatory LUIS Maya REBEKA Facility:[facility] Start: 04-24-2024 End: 04-24-2024 [facility] Start: 04-24-2024 Encounter for other preprocedural examination LUIS STALEY [facility] Start: 04-21-2024 End: 05-11-2024 Telephone encounter Broderick Ansari MD Work Phone: General Surgery Comment on above: Schedule Surgery; Ca re Coordinator - Other Start: 04-20-2024 End: 04-20-2024 ambulatory LUIS STALEY Facility:[facility] Start: 04-20-2024 End: 04-20-2024 Patient encounter procedure Broderick Ansari MD Work Phone: General Surgery Comment on above: Obesity, Class II, B NH 35-39.9 (Primary Dx) Start: 04-06-2024 End: 04-06-2024 ambulatory [facility] Start: 03-29-2024 End: 03-30-2024 Emergency department patient visit Luis Rebeka Facility:[facility] Start: 03-23-2024 End: 04-21-2024 Patient Outreach Luis Staley MD Work Phone: [facility] Comment on above: Transition Of Care ( [facility] DISCHARGE 03/22 BOWEL OBSTRUCTION S) Received Outside Med ical Records Start: 03-21-2024 End: 03-21-2024 ambulatory Shira Hernandez Facility:[facility] Start: 03-20-2024 End: 03-20-2024 ambulatory Shivam Robinson Facility:[facility] Start: 03-20-2024 ambulatory [facility] Facilit y:[facility] Start: 03-20-2024 End: 03-22-2024 Evaluation and management of inpatient [facility] Facility:[facility] Start: 03-17-2024 End: 04-08-2024 Telephone encounter Broderick Ansari MD Work Phone: General Surgery Comment on above: Schedule Surgery Start: 02-04-2024 End: 02-04-2024 Refill Luis Staley MD Work Phone: [facility] Comment on above: Refill Request Start: 01-19-2024 End: 02-04-2024 Admission to same day surgery center Broderick Ansari MD Work Phone: General Surgery Comment on above: Insurance denial Start: 01-19-2024 End: 02-04-2024 ambulatory Broderick Ansari MD Work Phone: General Surgery Start: 01-08-[address] [facility] Broderick Ansari MD Work Phone: General Surgery Comment on above: Insurance Authorizat ion Start: 01-08-2024 ambulatory Broderick Ansari MD Work Phone: General Surgery Start: 12-08-2023 End: 02-12-2024 ambulatory [facility] Facility:[facility] Start: 12-08-2023 End: 12-08-2023 Patient encounter procedure Jesus Ortiz MD Work Phone: Neurology Comment on above: JANA (obstructive sle ep apnea) (Primary Dx); Class 2 severe obesity with serious comorbidity and body mass index (BMI) of 35.0 to 35.9 in adult, unspecified obesity type (HCC) Start: 12-05-2023 End: 12-05-2023 ambulatory [facility] Facility:[facility] Start: 12-05-2023 End: 12-05-2023 Patient encounter procedure Luis Staley MD Work Phone: [facility] Comment on above: Mixed hyperlipidemia (Primary Dx); Essential hypertension; Diabetes mellitus without complication (HCC); Class 2 severe obesity with serious comorbidity and body mass index (BMI) of 35.0 to 35.9 in adult, unspecified obesity type (HCC); Personal history of rectal cancer Start: 12-02-2023 Telephone encounter Luis Staley MD Work Phone: [facility] Medicine [place] Comment on above: Results Start: 12-01-2023 End: 12-01-2023 ambulatory [facility] Facility:[facility] Start: 11-28-2023 End: 11-28-2023 ambulatory [facility] Facility:[facility] Start: 11-28-2023 End: 11-28-2023 Patient encounter procedure Rolf Patino RD Work Phone: [facility] Comment on above: Obesity, Class II, B NH 35-39.9 (Primary Dx); Dietary counseling and surveillance Start: 11-28-2023 End: 11-28-2023 Telemedicine consultation with patient Rolf Patino RD Work Phone: [facility] Start: 11-18-2023 ambulatory Luis Staley MD Work Phone: [facility] Comment on above: Blood work Start: 11-13-2023 End: 11-13-2023 ambulatory LUIS Maya REBEKA Facility:[facility] Start: 11-13-2023 End: 11-13-2023 Subsequent hospital visit by physician Higinio Campuzano MD Work Phone: Ambulatory Surgery Comment on above: Class 2 severe obesi ty with serious comorbidity and body mass index (BMI) of 35.0 to 35.9 in adult, unspecified obesity type (HCC) [E66.01, Z68.35] Start: 11-07-2023 End: 11-07-2023 ambulatory LUIS STALEY Facility:[facility] Start: 11-06-2023 End: 11-06-2023 [facility] Facility:[facility] Start: 11-06-2023 End: 11-06-2023 Patient encounter procedure Rolf Patino RD Work Phone: [facility] Comment on above: Diabetes mellitus wi thout complication (HCC) (Primary Dx); Obesity, Class II, BMI 35-39.9; Dietary counseling and surveillance Start: 11-06-2023 End: 11-06-2023 Telemedicine consultation with patient Rolf Yashamir SHAH Work Phone: [facility] Start: 11-05-2023 End: 11-06-2023 ambulatory RACHEL YANCEY Facility:[facility] Start: 10-24-[address] [facility] Broderick Ansari MD Work Phone: General Surgery Comment on above: Endoscope medication Start: 10-24-2023 ambulatory Broderick Ansari MD Work Phone: General Surgery Start: 10-21-2023 End: 10-21-2023 ambulatory LUIS STALEY Facility:[facility] Start: 10-21-2023 End: 10-21-2023 Patient encounter procedure Broderick Ansari MD Work Phone: General Surgery Comment on above: Class 2 severe obesi ty with serious comorbidity and body mass index (BMI) of 35.0 to 35.9 in adult, unspecified obesity type (HCC) (Primary Dx) Start: 10-17-2023 End: 10-17-2023 Nursing evaluation of patient and report Mi Nurse Work Phone: [facility] [place] Comment on above: Class 2 severe obesi ty with serious comorbidity and body mass index (BMI) of 35.0 to 35.9 in adult, unspecified obesity type (HCC) Start: 10-17-2023 End: 10-17-2023 ambulatory RACHEL YANCEY Facility:[facility] Start: 10-17-2023 End: 10-17-2023 ambulatory RACHEL YANCEY Facility:[facility] Start: 10-17-2023 End: 10-17-2023 Subsequent hospital visit by physician [facility] [place] Mob Work Phone: Radiology Comment on above: Class 2 severe obesi ty with serious comorbidity and body mass index (BMI) of 35.0 to 35.9 in adult, unspecified obesity type (HCC) [E66.01, Z68.35] Start: 10-17-2023 End: 10-17-2023 Subsequent hospital visit by physician [facility] [place] W[facility] Mob 2 Work Phone: Radiology Comment on above: Class 2 severe obesi ty with serious comorbidity and body mass index (BMI) of 35.0 to 35.9 in adult, unspecified obesity type (HCC) [E66.01, Z68.35] Start: 10-17-2023 End: 10-17-2023 ambulatory RACHEL Hu YANCEY Facility:[facility] Start: 10-15-2023 End: 10-16-2023 ambulatory LUIS STALEY Facility:[facility] Start: 10-14-2023 Chart abstracting [facility] Work Phone: Neurology Start: 10-07-2023 End: 10-07-2023 ambulatory LUIS STALEY Facility:[facility] Start: 10-02-2023 End: 10-02-2023 Admission to same day surgery center Rachel Mcmillan APRN.VEGETABLE WORKER Work Phone: General Surgery BMI Comment on above: Class 2 severe obesi ty with serious comorbidity and body mass index (BMI) of 35.0 to 35.9 in adult, unspecified obesity type (HCC) (Primary Dx) Start: 10-02-2023 End: 10-02-2023 ambulatory LUIS STALEY Facility:[facility] Start: 10-02-2023 End: 10-02-2023 Telemedicine consultation with patient Rachel Mcmillan APRN.TIGRE Work Phone: General Surgery BMI Start: 09-08-2023 Documentation procedure Mammog anjali Coordinator [facility] Start: 09-08-2023 Letter encounter Mammography Coordinator [facility] Department Start: 09-05-2023 End: 09-05-2023 Subsequent hospital visit by physician Screen Mammo [facility] Mammogram Comment on above: Screening breast exa mination [Z12.39] Start: 08-13-2023 Refill Oscar Saez on PA-C Work Phone: [facility] [place] Comment on above: Refill Request Start: 02-07-2023 Refill Luis Staley MD Work Phone: [facility] [place] Comment on above: Refill Request Start: 12-13-2022 End: 12-13-2022 Patient encounter procedure Luis Staley MD Work Phone: [facility] [place] Comment on above: Essential hypertensi on (Primary Dx); Mixed hyperlipidemia; Personal history of rectal cancer; Diabetes mellitus without complication (HCC); Vitamin D deficiency; Obesity, Class II, BMI 35-39.9 Start: 08-08-2022 Refill Luis Staley MD Work Phone: [facility] [place] Comment on above: Refill Request Start: 06-17-2022 End: 06-17-2022 Subsequent hospital visit by physician Screen Mammo [facility] Mammogram Comment on above: Encounter for screen ing mammogram for breast cancer [Z12.31] Start: 12-19-2021 ambulatory Luis Staley MD Work Phone: [facility] [place] Comment on above: Trulicty - A1C Start: 12-19-2021 End: 12-19-2021 Patient encounter procedure Luis Staley MD Work Phone: Family Medicine [place] Comment on above: Essential hypertensi on (Primary Dx); Diabetes mellitus without complication (HCC); Mixed hyperlipidemia; Malignant neoplasm of colon, unspecified part of colon (HCC) Start: 11-28-2021 ambulatory Luis Staley MD Work Phone: Internal Medicine Main [place] Procedures Date Procedure Procedure Detail Performing Clinician Start: 11-13-2023 Esophagogastroduodenoscopy transoral diagnostic Broderick Ansari MD Work Phone: Start: 11-07-2023 Adult depression screening assessment Broderick Ansari MD Work Phone: Start: 10-17-2023 Radiologic exam chest 2 views Rachel lira APRN.VEGETABLE WORKER Work Phone: Start: 06-17-2022 End: 06-17-2022 Mammography Bulk Order Provider Start: 03-06-2020 Mammography Luis Staley MD Work Phone: Start: 01-06-2020 Colonoscopy Luis Staley MD Work Phone: Plan of Treatment Date Care Activity Detail Author Start: 09-05-2025 MG Breast Screening GUICHO SCREENING Radiology Routine Encounter for screening mammogram for malignant neoplasm of breast Expected: 09/05/2025 [facility] Comment on above: Expected: 09/05/2025 Start: 08-10-2025 Annual PCP Team Chronic Disease Visit Annual PCP Team Chronic Disease Visit [facility] Start: 07-13-2025 Annual PCP Team Chronic Disease Visit Annual PCP Team Chronic Disease Visit [facility] Start: 06-09-2025 Annual PCP Team Chronic Disease Visit Annual PCP Team Chronic Disease Visit [facility] Start: 06-09-2025 Covid-19 Vaccine ( season) Covid-19 Vaccine () [facility] Comment on above: Postponed from 02/01/2024 (Declined at t his time) Start: 06-09-2025 Diabetic foot examination Diabetic Foot Exam [facility] Start: 06-09-2025 Pneumococcal Vaccine: 50+ (1 of 2 - PCV) Pneumococcal Vaccine: 50+ (1 of 2 - PCV) [facility] Comment on above: Postponed from 1987 (Declined at t his time) Start: 06-09-2025 Shingrix Vaccine (1 of 2) Shingrix Vaccine (1 of 2) [facility] Comment on above: Postponed from 2018 (Declined at t his time) Start: 06-09-2025 Urine microalbumin profile DTaP,Tdap,Td Vaccine (1 - Tdap) [facility] Comment on above: Postponed from 1987 (Declined at t his time) Start: 05-11-2025 Glaucoma screening Dilated Retinal Exam [facility] Start: 01-05-2025 Colonoscopy COLONOSCOPY [facility] Start: 01-05-2025 COLORECTAL CANCER SCREENING COLORECTAL CANCER SCREENING [facility] Start: 01-05-2025 Screening for malignant neoplasm of colon [facility] Start: 12-11-2024 End: 2025 Hemoglobin A1c in Blood HEMOGLOBIN A1C Lab Routine Diabetes mellitus without complication (HCC) Expected: 12/11/2024, Expires: 2025 [facility] Work Phone: Comment on above: Expected: 12/11/2024, Expires: Start: 12-10-2024 Hemoglobin A1c measurement HbA1C [facility] Start: 12-07-2024 BP Controlled (<130/80) BP Controlled (<130/80) [facility] Start: 12-04-2024 Annual PCP Team Chronic Disease Visit Annual PCP Team Chronic Disease Visit [facility] Start: 12-04-2024 BP Controlled (<130/80) BP Controlled (<130/80) [facility] Start: 11-30-2024 Hepatitis B screening Urine Albumin:Creatinine Ratio [facility] Start: 11-30-2024 Hepatitis B surface antibody level LDL Cholesterol [facility] Start: 11-06-2024 Anxiety Screening Anxiety Screening [facility] Start: 11-06-2024 Depression Screening Depression Screening [facility] Start: 10-16-2024 Hepatitis B surface antibody level LDL Cholesterol [facility] Start: 09-07-2024 End: 12-07-2024 Hemoglobin A1c in Blood HEMOGLOBIN A1C Lab Routine Diabetes mellitus without complication (HCC) Expected: 09/07/2024, Expires: 12/07/2024 [facility] Work Phone: Comment on above: Expected: 09/07/2024, Expires: Start: 09-04-2024 Screening for malignant neoplasm of breast Mammogram Screening [facility] Start: 08-30-2024 Hemoglobin A1c measurement HbA1C [facility] Start: 08-20-2024 End: 08-20-2024 Admission to same day surgery center 08/20/2024 8:00 AM EDT [facility] Surgery [address] [place] [address] [place] [address] post op three months/ lap sleeve gastrectomy 05/19/2024 General Surgery Comment on above: post op three months/ lap sleeve gastrec leonidas 05/19/2024 Start: 08-17-2024 End: 08-17-2024 Admission to same day surgery center 08/17/2024 9:00 AM EDT [facility] General Surgery [address] [place] [address] Andra Russell, BLEACH CHLORINATOR.VEGETABLE WORKER [address] [place] [address] post op three months / lap sleeve gastrectomy 05/29/2024 General Surgery Comment on above: post op three months / lap sleeve gastre ctomy 05/29/2024 Start: 08-10-2024 End: 08-10-2024 Follow-up encounter 08/10/2024 9:00 AM EDT [facility] [place] [address] [place] [address] Linda Menjivar BLEACH CHLORINATOR.VEGETABLE WORKER [address] [place] [address] 1 mo follow up; DM medication [facility] [place] Comment on above: 1 mo follow up; DM medication Start: 07-13-2024 End: 07-13-2024 Patient encounter procedure 07/13/2024 1:20 PM EST Office Visit [facility] [place] [address] [place] [address] Linda Menjivar, BLEACH CHLORINATOR.VEGETABLE WORKER [address] [place] [address] 4 week follow up. Started on Trulicity. A1c prior [facility] [place] Comment on above: 4 week follow up. Started on Trulicity. A1c prior Start: 06-21-2024 End: 06-21-2024 Patient encounter procedure 06/21/2024 11:00 AM EST Office Visit General Surgery [address] [facility] [place] [address] Andra Russell, BLEACH CHLORINATOR.VEGETABLE WORKER [address] [place] [address] post op one month/ lap sleeve gasrectomy General Surgery Comment on above: post op one month/ lap sleeve gasrectomy Start: 06-13-2024 Annual PCP Team Chronic Disease Visit Annual PCP Team Chronic Disease Visit [facility] Start: 06-13-2024 BP Controlled (<130/80) BP Controlled (<130/80) [facility] in Start: 06-13-2024 Diabetic foot examination Diabetic Foot Exam [facility] Start: 06-09-2024 End: 06-09-2024 Admission to same day surgery center 06/09/2024 11:00 AM EST Education General Surgery [address] [place] [address] [place] [address] post op refresher General Surgery Comment on above: post op refresher Start: 06-07-2024 End: 06-07-2024 Patient encounter procedure 06/07/2024 10:00 AM EST Office Visit Family Harshil Palomares [address] [place] [address] Luis Staley MD [address] [place] [address] 6 month follow up Family Harshil [facility]oma[facility] Comment on above: 6 month follow up Start: 06-02-2024 Hemoglobin A1c measurement HbA1C [facility] Start: 06-01-2024 End: 08-31-2024 Carcinoembryonic Ag [Mass/volume] in Serum or Plasma [facility] Comment on above: Expected: 06/01/2024, Expires: Start: 06-01-2024 End: 08-31-2024 Hemoglobin A1c in Blood [facility] Work Phone: Comment on above: Expected: 06/01/2024, Expires: Start: 05-24-2024 End: 05-24-2024 Patient encounter procedure 05/24/2024 8:30 AM EST Office Visit General Surgery [address] [place] [address] Andra Russell APRN.VEGETABLE WORKER [address] [place] [address] post 7-10 day/ lap sleeve gastrectomy 05/19/2024 General Surgery Comment on above: post 7-10 day/ lap sleeve gastrectomy Start: 05-19-2024 End: 05-19-2024 Admission to same day surgery center 05/19/2024 10:45 AM EST - 05/19/2024 1:00 PM EST Surgery [facility] Operating Room [address] [place] [address] Broderick Ansari MD [address] [place] [address] LAPAROSCOPIC LONGITUDINAL GASTRECTOMY, GASTRIC RESTRICTIVE PROCEDURE [facility] Operating Room Comment on above: LAPAROSCOPIC LONGITUDINAL GASTRECTOMY, G ASTRIC RESTRICTIVE PROCEDURE Start: 05-19-2024 End: 05-19-2024 Laps gstrc rstrictiv px longitudinal gastrectomy LAPAROSCOPIC LONGITUDINAL GASTRECTOMY, GASTRIC RESTRICTIVE PROCEDURE Obesity, Class II, BMI 35-39.9 05/19/2024 10:45 AM EST [facility] OR Start: 05-19-2024 Subsequent hospital visit by physician [facility] Operating Room Comment on above: Obesity, Class II, BMI 35-39.9 [E66.9] Start: 05-18-2024 End: 05-18-2024 Patient encounter procedure 05/18/2024 2:15 PM EST Office [facility] [address] [place] [address] [place] [address] [facility] [address] [place] [address] preop/ lap sleeve gastrectomy 05/19/2024 General Surgery Comment on above: preop/ lap sleeve gastrectomy 05/19/2024 Start: 05-18-2024 End: 05-18-2024 Anesthesia consultation 05/18/2024 11:40 AM EST PAT Pre Anesthesia [address] [facility] [address] [place] [address] preop/ lap sleeve gastrectomy 05/19/2024 Pre Anesthesia Comment on above: preop/ lap sleeve gastrectomy 05/19/2024 Start: 05-10-2024 End: 05-10-2024 ambulatory Neurology Comment on above: f/u w/[facility] Start: 05-10-2024 End: 05-10-2024 Patient encounter procedure 05/10/2024 8:00 AM EST Office Visit Neurology [address] [place] [address] Do Mcclain APRN.VEGETABLE WORKER [address] [facility] [address] [place] [address] f/u w/[facility] Neurology Comment on above: f/u w/[facility] Start: 05-05-2024 End: 05-05-2024 Admission to same day surgery center 05/05/2024 9:00 AM EST Education General Surgery [address] [place] [address] [place], [place] [id number] preop refresher General Surgery Comment on above: preop refresher Start: 04-27-2024 End: 04-27-2024 Patient encounter procedure 04/27/2024 11:45 AM EST Office [place] [address] preop/ lap sleeve gastrectomy 05/19/2024 [employer] Screening Comment on above: preop/ lap sleeve gastrectomy 05/19/2024 Start: 04-20-2024 End: 04-20-2024 Patient encounter procedure 04/20/2024 2:00 PM EST Office Visit General Surgery [address] [place] [id number] [place] [address] [address] Est: BMI- discuss LRYGB feasibility s/p extensive CRESCENCIO 03/20/24 General Surgery Comment on above: Est: BMI- discuss LRYGB feasibility s/p extensive CRESCENCIO 03/20/24 Start: 04-18-2024 Hemoglobin A1c measurement HbA1C [facility] Start: 03-16-2024 End: 03-16-2024 ambulatory 03/16/2024 4:00 PM EDT [facility] Neurology [address] [place] [address] Do Mcclain APRN.VEGETABLE WORKER [address] [place], [place] [id number] f/u w/[facility] Neurology Comment on above: f/u w/[facility] Start: 02-15-2024 Subsequent hospital visit by physician 02/15/2024 Hospital Encounter [facility] Operating Room [address] [place] [address] [place] [address] [place] [address] Obesity, Class II, BMI 35-39.9 [E66.9] [facility] Operating Room Comment on above: Obesity, Class II, BMI 35-39.9 [E66.9] Start: 02-12-2024 End: 02-12-2024 ambulatory 02/12/2024 3:30 PM EDT [facility] Neurology [address] [place] [address] Puja Greene APRN.VEGETABLE WORKER, PhD [address] [place] [address] sleep study group [facility] [place] [facility] Comment on above: sleep study group [facility] [place] Start: 02-01-2024 Covid-19 Vaccine ( season) Covid-19 Vaccine () [facility] Start: 02-01-2024 Influenza vaccination Influenza Vaccine (#1) [facility] Start: 12-14-2023 ANNUAL PCP TEAM CHRONIC DISEASE VISIT ANNUAL PCP TEAM CHRONIC DISEASE VISIT [facility] Start: 12-14-2023 PNEUMOCOCCAL (1 - PCV) PNEUMOCOCCAL (1 - PCV) [facility] ic Comment on above: Postponed from 1974 (Declined at t his time) Start: 12-14-2023 [facility]neum[facility] Comment on above: Postp[facility] from 1974 (Declined at t his time) Start: 12-14-2023 SHINGRIX VACCINE (1 of 2) SHINGRIX VACCINE (1 of 2) [facility] Comment on above: Postponed from 2018 (Declined at t his time) Start: 12-14-2023 Urine microalbumin profile [facility] Comment on above: Postponed from 1987 (Declined at t his time) Start: 12-08-2023 End: 12-08-2023 Patient encounter procedure 12/08/2023 10:00 AM EDT Office Visit Neurology [address] [place] [address] Jesus Ortiz MD [address] [facility] [address] [place] [address] Class 2 severe obesity with serious comorbidity and body mass index (BMI) of 35.... Neurology Comment on above: Class 2 severe obesity with serious lili rbidity and body mass index (BMI) of 35.... Start: 12-07-2023 Hepatitis B screening URINE ALBUMIN:CREATININE RATIO [facility] Start: 12-07-2023 Hepatitis B surface antibody level LDL CHOLESTEROL [facility] Start: 12-05-2023 Hemoglobin A1c measurement HbA1C [facility] Start: 12-05-2023 End: 12-05-2023 Patient encounter procedure 12/05/2023 10:00 AM EDT Office Visit Family Medicine [place] [address] [place] [address] Luis Staley MD [address] [place], [place] [address] 6 mth f/u [facility] [place] Comment on above: 6 mth f/u Start: 12-02-2023 End: 03-02-2024 ALK PHOS ISOENZYM BL ALK PHOS ISOENZYM BL Lab Routine Elevated alkaline phosphatase level Expected: 12/02/2023, Expires: 03/02/2024 [facility] Work Phone: Comment on above: Expected: 12/02/2023, Expires: Start: 11-28-2023 End: 11-28-2023 Patient encounter procedure 11/28/2023 8:00 AM EDT [facility] BMI [facility] [address] [place], [place] [phone] Rolf Patino, RD [address] [place], [place] [id number] Red/Ansari/0 Diet/MMO BMI [facility] Comment on above: Red/Ansari/0 Diet/MMO Start: 11-18-2023 End: 02-17-2024 Carcinoembryonic Ag [Mass/volume] in Serum or Plasma CARCINOEMBRYONIC ANTIGEN Lab Routine Personal history of rectal cancer Expected: 11/18/2023, Expires: 02/17/2024 [facility] Work Phone: Comment on above: Expected: 11/18/2023, Expires: 4 Start: 11-13-2023 End: 11-13-2023 Patient encounter procedure Ambulatory Surgery Comment on above: Class 2 severe obesity with serious lili rbidity and body mass index (BMI) of 35.... Start: 11-06-2023 End: 11-06-2023 Patient encounter procedure Endocrinology BMI Comment on above: Red/Ansari/0 Diet/MMO [employer] Start: 10-21-2023 End: 10-21-2023 Patient encounter procedure 10/21/2023 8:30 AM EDT Office Visit General Surgery [address] [place] [address] [place] [address] [place] [address] Red/Ansari/0 Diet/MMO General Surgery Comment on above: Red/Ansari/0 Diet/MMO Start: 10-17-2023 End: 10-17-2023 Nursing evaluation of patient and report 10/17/2023 11:30 AM EDT Nurse Visit Family [facility] [place] [address] [place] [address] Nurse, [place] [address] [place], [place] [id number] E66.01,Z68.35 (ICD-10-CM) - Class 2 severe obesity with serious comorbidity and body mass index (BMI) of 35.0 to 35.9 in adult, unspecified obesity type (HCC) [facility] [place] Comment on above: E66.01,Z68.35 (ICD-10-CM) - Class [...] 10/17/2023 9:15 AM EDT Results Only Jelani Millington [facility], [facility] [address] [place] [address] [facility], [facility] Start: 10-16-2023 End: 10-16-2023 Patient encounter procedure 10/16/2023 10:00 AM EDT Office Visit Neurology [address] [place] [address] [facility] Neurology Comment on above: [facility] Start: 10-02-2023 End: 01-01-2024 25-hydroxyvitamin D3 [Mass/volume] in Serum or Plasma VITAMIN D 25 HYDROXY Lab Routine Class 2 severe obesity with serious comorbidity and body mass index (BMI) of 35.0 to 35.9 in adult, unspecified obesity type (HCC) Expected: 10/02/2023, Expires: 01/01/2024 [facility] Comment on above: Expected: 10/02/2023, Expires: Start: 10-02-2023 End: 01-01-2024 CBC W Auto Differential panel - Blood COMPLETE BLOOD COUNT AND DIFFERENTIAL Lab Routine Class 2 severe obesity with serious comorbidity and body mass index (BMI) of 35.0 to 35.9 in adult, unspecified obesity type (HCC) Expected: 10/02/2023, Expires: 01/01/2024 [facility] Work Phone: Comment on above: Expected: 10/02/2023, Expires: Start: 10-02-2023 End: 01-01-2024 Cobalamin (Vitamin B12) [Mass/volume] in Serum or Plasma VITAMIN B12 Lab Routine Class 2 severe obesity with serious comorbidity and body mass index (BMI) of 35.0 to 35.9 in adult, unspecified obesity type (HCC) Expected: 10/02/2023, Expires: 01/01/2024 [facility] Comment on above: Expected: 10/02/2023, Expires: Start: 10-02-2023 End: 01-01-2024 Comprehensive metabolic 2000 panel - Serum or Plasma COMPREHENSIVE METABOLIC PANEL Lab Routine Class 2 severe obesity with serious comorbidity and body mass index (BMI) of 35.0 to 35.9 in adult, unspecified obesity type (HCC) Expected: 10/02/2023, Expires: 01/01/2024 [facility] Comment on above: Expected: 10/02/2023, Expires: Start: 10-02-2023 End: 01-01-2024 Ferritin [Mass/volume] in Serum or Plasma FERRITIN Lab Routine Class 2 severe obesity with serious comorbidity and body mass index (BMI) of 35.0 to 35.9 in adult, unspecified obesity type (HCC) Expected: 10/02/2023, Expires: 01/01/2024 [facility] Comment on above: Expected: 10/02/2023, Expires: Start: 10-02-2023 End: 01-01-2024 Folate [Mass/volume] in Serum or Plasma FOLATE, SERUM Lab Routine Class 2 severe obesity with serious comorbidity and body mass index (BMI) of 35.0 to 35.9 in adult, unspecified obesity type (HCC) Expected: 10/02/2023, Expires: 01/01/2024 [facility] Comment on above: Expected: 10/02/2023, Expires: Start: 10-02-2023 End: 01-01-2024 Hemoglobin A1c in Blood HEMOGLOBIN A1C Lab Routine Class 2 severe obesity with serious comorbidity and body mass index (BMI) of 35.0 to 35.9 in adult, unspecified obesity type (HCC) Expected: 10/02/2023, Expires: 01/01/2024 [facility] Comment on above: Expected: 10/02/2023, Expires: Start: 10-02-2023 End: 01-01-2024 Iron and Iron binding capacity panel - Serum or Plasma IRON AND TIBC Lab Routine Class 2 severe obesity with serious comorbidity and body mass index (BMI) of 35.0 to 35.9 in adult, unspecified obesity type (HCC) Expected: 10/02/2023, Expires: 01/01/2024 [facility] Comment on above: Expected: 10/02/2023, Expires: Start: 10-02-2023 End: 01-01-2024 Lipid 1996 panel - Serum or Plasma LIPID PANEL BASIC Lab Routine Class 2 severe obesity with serious comorbidity and body mass index (BMI) of 35.0 to 35.9 in adult, unspecified obesity type (HCC) Expected: 10/02/2023, Expires: 01/01/2024 [facility] Comment on above: Expected: 10/02/2023, Expires: Start: 10-02-2023 End: 01-01-2024 Natriuretic peptide.B prohormone N-Terminal [Mass/volume] in Serum or Plasma NT PRO BNP Lab Routine Class 2 severe obesity with serious comorbidity and body mass index (BMI) of 35.0 to 35.9 in adult, unspecified obesity type (HCC) Expected: 10/02/2023, Expires: 01/01/2024 [facility] Comment on above: Expected: 10/02/2023, Expires: Start: 10-02-2023 End: 01-01-2024 Thyrotropin [Units/volume] in Serum or Plasma THYROID STIMULATING HORMONE Lab Routine Class 2 severe obesity with serious comorbidity and body mass index (BMI) of 35.0 to 35.9 in adult, unspecified obesity type (HCC) Expected: 10/02/2023, Expires: 01/01/2024 [facility] Comment on above: Expected: 10/02/2023, Expires: Start: 10-02-2023 End: 01-01-2024 VITAMIN B1 (THIAMINE), WHOLE BLOOD VITAMIN B1 (THIAMINE), WHOLE BLOOD Lab Routine Class 2 severe obesity with serious comorbidity and body mass index (BMI) of 35.0 to 35.9 in adult, unspecified obesity type (HCC) Expected: 10/02/2023, Expires: 01/01/2024 [facility] Comment on above: Expected: 10/02/2023, Expires: 4 Start: 06-17-2023 3 comp foot exam completed DIABETIC FOOT EXAM [facility] Start: 06-17-2023 ANNUAL PCP TEAM CHRONIC DISEASE VISIT ANNUAL PCP TEAM CHRONIC DISEASE VISIT [facility] Start: 06-17-2023 BP CONTROLLED (<130/80) BP CONTROLLED (<130/80) [facility] inic Start: 06-17-2023 Mammography [facility] Start: 06-17-2023 Screening for malignant neoplasm of breast Mammogram Screening [facility] Start: 06-15-2023 End: 08-15-2023 Hemoglobin A1c in Blood HGB A1C Lab Routine Diabetes mellitus without complication (HCC) Expected: 06/15/2023, Expires: 08/15/2023 [facility] Work Phone: Comment on above: Expected: 06/15/2023, Expires: Start: 06-08-2023 Hemoglobin A1c/Hemoglobin.total in Blood HBA1C [facility] Start: 01-31-2023 Covid-19 Vaccine (5 - 2023-24 season) Covid-19 Vaccine () [facility] Start: 01-31-2023 Influenza vaccination [facility] Start: 12-19-2022 ANNUAL PCP TEAM CHRONIC DISEASE VISIT ANNUAL PCP TEAM CHRONIC DISEASE VISIT [facility] Start: 12-19-2022 Hepatitis B screening URINE ALBUMIN:CREATININE RATIO [facility] Start: 12-14-2022 Hepatitis B surface antibody level LDL CHOLESTEROL [facility] Start: 12-08-2022 Hemoglobin A1c/Hemoglobin.total in Blood HBA1C [facility] Start: 11-19-2022 HPV TESTING HPV TESTING [facility] Start: 11-19-2022 PAP TESTING PAP TESTING [facility] Start: 11-19-2022 Screening for malignant neoplasm of cervix [facility] Start: 06-21-2022 End: 08-21-2022 Carcinoembryonic Ag [Mass/volume] in Serum or Plasma CEA BLD Lab Routine Malignant neoplasm of colon, unspecified part of colon (HCC) Expected: 06/21/2022, Expires: 08/21/2022 [facility] Work Phone: Comment on above: Expected: 06/21/2022, Expires: 3 Start: 06-21-2022 End: 08-21-2022 Hemoglobin A1c in Blood HGB A1C Lab Routine Diabetes mellitus without complication (HCC) Expected: 06/21/2022, Expires: 08/21/2022 [facility] Work Phone: Comment on above: Expected: 06/21/2022, Expires: 3 Start: 06-21-2022 Hemoglobin A1c/Hemoglobin.total in Blood HBA1C [facility] Start: 06-20-2022 3 comp foot exam completed DIABETIC FOOT EXAM [facility] Start: 06-20-2022 ANNUAL PCP TEAM CHRONIC DISEASE VISIT ANNUAL PCP TEAM CHRONIC DISEASE VISIT [facility] Start: 06-20-2022 BP CONTROLLED (<130/80) BP CONTROLLED (<130/80) [facility] in Start: 06-08-2022 Hepatitis B surface antibody level LDL CHOLESTEROL [facility] Start: 06-02-2022 DEPRESSION ASSESSMENT DEPRESSION ASSESSMENT [facility] Start: 02-21-2022 Glaucoma screening Dilated Retinal Exam [facility] Start: 02-21-2022 Hepatitis C antibody, confirmatory test DILATED RETINAL EXAM [facility] Start: 01-31-2022 Influenza vaccination INFLUENZA (#1) [facility] Start: 12-19-2021 End: 02-18-2022 ALBUMIN/CREAT RATIO RND UR [facility] Work Phone: Comment on above: Expected: 12/19/2021, Expires: 2 Start: 12-19-2021 End: 02-18-2022 CBC W Auto Differential panel - Blood [facility] Work Phone: Comment on above: Expected: 12/19/2021, Expires: 2 Start: 12-19-2021 End: 02-18-2022 Comprehensive metabolic 2000 panel - Serum or Plasma [facility] Work Phone: Comment on above: Expected: 12/19/2021, Expires: 2 Start: 12-19-2021 End: 02-18-2022 Hemoglobin A1c in Blood [facility] Work Phone: Comment on above: Expected: 12/19/2021, Expires: 2 Start: 12-09-2021 Hepatitis B screening URINE ALBUMIN:CREATININE RATIO [facility] Start: 12-06-2021 Hemoglobin A1c/Hemoglobin.total in Blood HBA1C [facility] Start: 09-12-2021 COVID-19 VACCINE (4 - Booster for Moderna series) COVID-19 VACCINE (4 - Booster for Moderna series) [facility] Start: 03-06-2021 Mammography MAMMOGRAM [facility] Start: 2018 SHINGRIX VACCINE (1 of 2) SHINGRIX VACCINE (1 of 2) [facility] Start: 2013 COLOGUARD (FIT-DNA) COLOGUARD (FIT-DNA) [facility] Start: [address] COLONOGRAPHY [facility] Start: 2013 FECAL OCCULT BLOOD FECAL OCCULT BLOOD [facility] Start: 2013 Screening for malignant neoplasm of colon [facility] Start: 2013 SIGMOIDOSCOPY SIGMOIDOSCOPY [facility] Start: 1987 HEPATITIS B (1 of 3 - Risk 3-dose series) HEPATITIS B (1 of 3 - Risk 3-dose series) [facility] Start: 1987 Pneumococcal Vaccine: 50+ (1 of 2 - PCV) Pneumococcal Vaccine: 50+ (1 of 2 - PCV) [facility] Start: 1987 Urine microalbumin profile [facility] Start: 1986 Anxiety Screening Anxiety Screening [facility] Start: 1986 BP CONTROLLED (<130/80) BP CONTROLLED (<130/80) [facility] in Start: 1986 Depression Screening Depression Screening [facility] Start: 1986 HEPATITIS C SCREENING HEPATITIS C SCREENING [facility] Start: 1986 HIV SCREENING HIV SCREENING [facility] Start: 1974 PNEUMOCOCCAL (1 - PCV) PNEUMOCOCCAL (1 - PCV) [facility] Start: 1974 Pneumococcal vaccination Pneumococcal Vaccine (1 of 2 - PCV) [facility] Start: 1968 HEPATITIS B (1 of 3 - 3-dose series) HEPATITIS B (1 of 3 - 3-dose series) [facility] End: 10-01-2024 ECG COMPLETE ECG COMPLETE ECG Routine Class 2 severe obesity with serious comorbidity and body mass index (BMI) of 35.0 to 35.9 in adult, unspecified obesity type (HCC) 1 Occurrences starting 10/02/2023 until 10/01/2024 [facility] Comment on above: 1 Occurrences starting 10/02/2023 until 10/01/2024 End: 10-19-2024 EGD DIAGNOSTIC EGD DIAGNOSTIC Endoscopy Routine Class 2 severe obesity with serious comorbidity and body mass index (BMI) of 35.0 to 35.9 in adult, unspecified obesity type (HCC) 1 Occurrences starting 10/21/2023 until 10/19/2024 [facility] Work Phone: Comment on above: 1 Occurrences starting 10/21/2023 until 10/19/2024 End: 10-01-2024 HOME SLEEP APNEA TEST ([facility]AT) HOME SLEEP APNEA TEST ([facility]AT) Procedures Routine Class 2 severe obesity with serious comorbidity and body mass index (BMI) of 35.0 to 35.9 in adult, unspecified obesity type (HCC) 1 Occurrences starting 10/02/2023 until 10/01/2024 [facility] Comment on above: 1 Occurrences starting 10/02/2023 until 10/01/2024 Laps gstr rstcv px w /byp myrtle-en-y limb <150 cm LAPAROSCOPIC GASTRIC RESTRICTIVE SURG W/ BYPASS & MYRTLE-EN-Y 150CM OR LESS Obesity, Class II, BMI 35-39.9 FV OR Laps gstrc rstrictiv px longitudinal gastrectomy LAPAROSCOPIC LONGITUDINAL GASTRECTOMY, GASTRIC RESTRICTIVE PROCEDURE Obesity, Class II, BMI 35-39.9 FV OR MG Breast Screening GUICHO SCREENIN G Radiology Routine Screening breast examination 09/05/2023 9:33 AM EDT [facility] Work Phone: End: 12-28-2022 Screening mammography bi 2-view breast inc cad GUICHO SCREENING Radiology Routine Encounter for screening mammogram for breast cancer 1 Occurrences starting 11/28/2021 until 12/28/2022 [facility] Work Phone: Comment on above: 1 Occurrences starting 11/28/2021 until 12/28/2022 SURGICAL PATHOLOGY [facility] Work Phone: Comment on above: Release Upon Ordering for 1 Occurrences starting 11/13/2023, 1 completed End: 10-31-2024 US Abdomen RUQ US ABD RIGHT UPPER QUADRANT Radiology Routine Class 2 severe obesity with serious comorbidity and body mass index (BMI) of 35.0 to 35.9 in adult, unspecified obesity type (HCC) 1 Occurrences starting 10/02/2023 until 10/31/2024 [facility] Comment on above: 1 Occurrences starting 10/02/2023 until 10/31/2024 US Abdomen RUQ US ABD RIGHT UPP ER QUADRANT Radiology Routine Class 2 severe obesity with serious comorbidity and body mass index (BMI) of 35.0 to 35.9 in adult, unspecified obesity type (HCC) 10/17/2023 10:50 AM EDT [facility] Work Phone: End: 10-31-2024 XR Chest PA and Lateral XR CHEST 2V FRONTAL/LAT Radiology Routine Class 2 severe obesity with serious comorbidity and body mass index (BMI) of 35.0 to 35.9 in adult, unspecified obesity type (HCC) 1 Occurrences starting 10/02/2023 until 10/31/2024 [facility] Comment on above: 1 Occurrences starting 10/02/2023 until 10/31/2024 [facility] Immunizations Immunization Date Immunization Notes Care Provider Bernard coffeyaldo 03-21-2024 influenza, seasonal, injectable, preservative free Luis Staley MD Work Phone: [facility] 06-13-2023 COVID-19 vaccine, ag e 12+ yr, season (PFIZER-BIONTECH) NA Porfirio CHAVEZ Work Phone: [facility] 06-13-2023 influenza, injectabl e, quadrivalent, contains preservative NA Porfirio CHAVEZ Work Phone: [facility] 06-13-2023 influenza virus vacc ine, unspecified formulation Luis Staley MD Work Phone: [facility] 06-17-2022 COVID-19 booster vaccine, age 12+ yr, bivalent (PFIZER-BIONTECH) Luis Staley MD Work Phone: [facility] 06-17-2022 influenza, injectabl e, quadrivalent, contains preservative Luis Staley MD Work Phone: [facility] 06-17-2022 influenza virus vacc ine, unspecified formulation Screen Wstr [facility] 09-07-2020 COVID-19 vaccine, fu ll dose (MODERNA) Luis Staley MD Work Phone: [facility] 08-11-2020 COVID-19 vaccine, fu ll dose (MODERNA) Luis Staley MD Work Phone: [facility] Payers Date Payer Category Payer [facility] [id number] 2024 Unknown [id number] 2024 Self-pay 2022 Private Health Insurance 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 2018 Unknown [id number] 2018 Unknown [id number] Unknown [id number] Unknown [id number] Unknown [id number] Unknown [id number] Unknown [id number] Unknown [id number] Unknown [id number] Unknown [id number] Unknown [id number] Unknown [id number] Unknown [id number] Social History Date Type Detail Facility Start: 06-17-2022 Tobacco smoking stat us MDIS Never smoked tobacco [facility] Start: 06-20-2021 End: 07-13-2024 Alcohol intake Current drinker of alcohol (finding) [facility] Start: 06-20-2021 End: 06-11-2022 History SDOH Alcohol Frequency 2 [facility] Start: 06-20-2021 End: 06-11-2022 History SDOH Alcohol Std Drinks 1 [facility] Start: 06-20-2021 End: 06-11-2022 History SDOH Social Connections Phone 5 [facility] Start: 12-04-2019 End: 06-11-2022 History SDOH Social Connections Meetings 3 [facility] Start: 12-03-2019 Education 17 [facility] Start: 1970 Sex Assigned At Female [facility] Start: 12-09-2021 End: 12-19-2021 Exposure to SARS-CoV-2 (event) Not sure [facility] Start: 06-17-2022 Tobacco use and exposure Smoke less tobacco non-user [facility] Start: 06-11-2022 History SDOH Social Connections Zoroastrian 98 [facility] Start: 06-10-2022 End: 12-13-2022 History of Social function [place] [facility] Start: 06-10-2022 End: 12-13-2022 Social connection and isolation panel [facility] How often do you att end synagogue or holiness services? Patient refused [facility] Do you belong to any clubs or organizations such as synagogue groups, unions, fraternal or athletic groups, or school groups? Yes [facility] Are you now , , , , never or living with a partner? [facility] How often to you hav e a drink containing alcohol? Monthly or less [facility] How many standard dr inks containing alcohol do you have on a typical day? 1 or 2 [facility] How often do you hav e 6 or more drinks on 1 occasion? Never [facility] Do you feel stress - tense, restless, nervous, or anxious, or unable to sleep at night because your mind is troubled all the time - these days [OSQ] Only a little [facility] (I/We) worried teresa er (my/our) food would run out before (I/we) got money to buy more. Never true [facility] In the past 12 month s, was there a time when you were not able to pay the mortgage or rent on time? No [facility] Start: 12-03-2019 Gender identity Identifies as female gender (finding) [facility] Start: 12-03-2019 Sexual orientation Heterosexual (alin barriga) [facility] Medical Equipment Procedure Code Equipment Code Equipment Origin al Text Equipment Identifier Dates [id number], [id number], [id number] Start: 03-06-2020 End: 06-09-2024 Comment on above: Use with blood gluco se test once daily, Insulin Dep? No Use with blood gluco se test once daily. Insulin Dep? Yes Goals Date Patient Goal Desired Activity /State Personal health goal Functional Status Date Assessment Result Facility 12-27-2014 Are you deaf, or do you have serious difficulty hearing No 12/27/2014 2:42 PM EDT Ananya Gilman Ma, [place] No [facility] 12-27-2014 Are you blind, or do you have serious difficulty seeing, even when wearing glasses No 12/27/2014 2:42 PM AVRILT Ananya Gilman Ma, [place] No [facility] 12-27-2014 Do you have serious difficulty walking or climbing stairs No 12/27/2014 2:42 PM EDT Ananya Gilman Ma, [place] No [facility] 12-27-2014 Do you have difficul ty dressing or bathing No 12/27/2014 2:42 PM EDT Ananya Gilman Ma, [place] No [facility] 12-27-2014 Because of a physica l, mental, or emotional condition, do you have difficulty doing errands alone such as visiting a physician's office or shopping No 12/27/2014 2:42 PM EDT Ananya Gilman Ma, [place] No [facility] Mental Status Date Assessment Result Facility 12-27-2014 Because of a physica l, mental, or emotional condition, do you have serious difficulty concentrating, remembering, or making decisions No 12/27/2014 2:42 PM EDT Ananya Gilman Ma, MA No [facility] Clinical Notes 10-03-2010 to 08-10-2024 Patient InstructionsLinda Menjivar APRN.CNP - 08/10/2024 9:21 AM EDTPatient InstructionsLinda Menjivar APRN.CNP - 07/13/2024 1:17 PM Luis Ruvalcaba MD - 06/09/2024 9:03 AM EST Note Date & Type Note Facility 08-10-2024 Instructions Linda Menjivar APRN.CNP - 08/10/2024 9:30 AM EDT 1) Increase Trulicity to 3 mg weekly 2) Follow up in 1 month- check BP and weight before appt. documented in this encounter [facility] 08-10-2024 Note HNO ID: [id number] Author: LINDA MENJIVAR APRN.CNP Service: ? Author Type: Nurse Practitioner Type: Progress Notes Filed: 08/10/2024 09:30 Note Text: VIRTUAL VISIT PROGRESS NOTE This is a virtual visit using [employer] Video Visit. It required patient-provider interaction for the medical decision making as documented below. I have communicated my name and active licensure. The patient's identity and physical location were verified at the time of this visit. Either the patient or their legal sales account representative has been informed of the risks and benefits of -- and alternatives to -- treatment through a remote evaluation and consents to proceed with the evaluation remotely. Angelique Wynne is a 54 year old female seen for Diabetes follow up. 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 Other and unspecified hyperlipidemia Personal history of malignant neoplasm of rectum, rectosigmoid junction, and anus PAST SURGICAL HISTORY Procedure Laterality Date COLECTOMY PARTIAL W/ANASTOMOSIS 10/01/2007 low anterior resection 31ceea anastamosis COLON SURGERY HX COLONOSCOPY FLX DX W/COLLJ SPEC WHEN PFRMD 10/03/2008 clean anastamosis COLONOSCOPY FLX DX W/COLLJ SPEC WHEN PFRMD 10/23/09, 11/05/11 clean anastamosis - recommend 3 year follow up COLONOSCOPY FLX DX W/COLLJ SPEC WHEN PFRMD 01/03/2015 clean anastamosis - recommend 5 year follow up COLONOSCOPY FLX DX W/COLLJ SPEC WHEN PFRMD 01/06/2020 Colonoscopy COLONOSCOPY W/BIOPSY SINGLE/MULTIPLE 09/02/2007 EGD TRANSORAL BIOPSY SINGLE/MULTIPLE 09/02/2007 EGD TRANSORAL BIOPSY SINGLE/MULTIPLE 10/03/2008 [facility] TUNNELED CTR VAD W/SUBQ PORT AGE 5 YR/> 11/20/2007 Left Subclavian REMOVED PAST SURGICAL HISTORY OF 2005 needle biopsy of the left breast PAST SURGICAL HISTORY OF lysis of adhesions due to SBO FAMILY HISTORY Adopted: Yes Problem Relation Age of Onset Diabetes Father Heart Father 62 from [place] Hypertension Father Heart Sister cancer--possible heart attack with chemo other (Crohn's Disease) Daughter Social History Tobacco Use Smoking status: Never Smokeless tobacco: Never Vaping Use Vaping status: Never Used Substance Use Topics Alcohol use: Yes Comment: Rarely Drug use: No Current Outpatient Medications Medication Sig dulaglutide (TRULICITY) 1.5 mg/0.5 mL pen injector Inject 1.5 mg subcutaneously one time a week. blood sugar diagnostic test strip Use with blood glucose test once daily, Insulin Dep? No Lancets Use with blood glucose test once daily. Insulin Dep? Yes CPAP/BIPAP/OTHER Type .CPAPSettings into a note to see current settings/supplies/DME information. atorvastatin (LIPITOR) 40 mg tablet Take 1 tablet by mouth daily at bedtime. For cholesterol. lisinopril (ZESTRIL) 20 mg tablet Take 1 tablet by mouth once daily. CPAP/BIPAP/OTHER Type .CPAPSettings into a note to see current settings/supplies/DME information. vitamin B complex (B COMPLEX ORAL) Take by mouth once daily. No current facility-administered medications for this visit. ALLERGIES Allergen Reactions Oxaliplatin Anaphylaxis Went to [facility] ER 02/08/08 Metformin Diarrhea Severe diarrhea. DM: Reports overall feeling well. Medication side effects: No. Home sugar checks: 160 Hypoglycemic spells: No. Watching diet: Yes. Unexpected weight loss: No. Polyuria, polydipsia: No. Vision Changes: No. Foot lesions or numbness or pain: Neuropathy from chemo. Weight 183 PHYSICAL EXAMINATION: VIDEO EXAM: (if completed, performed via video enabled technology) GENERAL: alert and appropriate, in no distress and unable to get camera to view ASSESSMENT and PLAN: ASSESSMENT/PLAN: 1. Obesity, Class II, BMI 35-39.9 - ICD9: 278.00, ICD10: E66.812 (primary diagnosis) Increase Trulicity to 3 mg weekly Reassess in 1 month 2. Diabetes mellitus without complication (HCC) - ICD9: 250.00, ICD10: E11.9 - Uncontrolled - Increase dulaglutide (Trulicity) - DULAGLUTIDE 3 MG/0.5 ML SUBCUTANEOUS PEN INJECTOR Discussed treatment plan and patient voices understanding. Patient's questions answered appropriately. Medications and potential side effects were discussed and patient voices understanding. Return to the office as scheduled or as needed for worsening/no improvement. Morbid Obesity Class 3 There are no Patient Instructions on file for this visit. I spent a total of 10 minutes on the date of the service which included preparing to see the patient, [id number] patient care, completing clinical documentation, obtaining and/or reviewing separately obtained history, performing a medically appropriate examination, c (more content not included)... [facility] 08-10-2024 History of Presen t illness Narrative VIRTUAL VISIT PROGRESS NOTE This is a virtual visit using [facility] [employer] [facility] Z[facility] Video Visit. It required patient-provider interaction for the medical decision making as documented below. I have communicated my name and active licensure. The patient's identity and physical location were verified at the time of this visit. Either the patient or their legal sales account representative has been informed of the risks and benefits of -- and alternatives to -- treatment through a remote evaluation and consents to proceed with the evaluation remotely. Angelique Wynne is a 54 year old female seen for Diabetes follow up. 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 Other and unspecified hyperlipidemia Personal history of malignant neoplasm of rectum, rectosigmoid junction, and anus PAST SURGICAL HISTORY Procedure Laterality Date COLECTOMY PARTIAL W/ANASTOMOSIS 10/01/2007 low anterior resection 31ceea anastamosis COLON SURGERY HX COLONOSCOPY FLX DX W/COLLJ SPEC WHEN PFRMD 10/03/2008 clean anastamosis COLONOSCOPY FLX DX W/COLLJ SPEC WHEN PFRMD 10/23/09, 11/05/11 clean anastamosis - recommend 3 year follow up COLONOSCOPY FLX DX W/COLLJ SPEC WHEN PFRMD 01/03/2015 clean anastamosis - recommend 5 year follow up COLONOSCOPY FLX DX W/COLLJ SPEC WHEN PFRMD 01/06/2020 Colonoscopy COLONOSCOPY W/BIOPSY SINGLE/MULTIPLE 09/02/2007 EGD TRANSORAL BIOPSY SINGLE/MULTIPLE 09/02/2007 EGD TRANSORAL BIOPSY SINGLE/MULTIPLE 10/03/2008 [facility] TUNNELED CTR VAD W/SUBQ PORT AGE 5 YR/> 11/20/2007 Left Subclavian REMOVED PAST SURGICAL HISTORY OF 2004 needle biopsy of the left breast PAST SURGICAL HISTORY OF lysis of adhesions due to SBO FAMILY HISTORY Adopted: Yes Problem Relation Age of Onset Diabetes Father Heart Father 62 [place] Hypertension Father Heart Sister cancer--possible heart attack with chemo other (Crohn's Disease) Daughter Social History Tobacco Use Smoking status: Never Smokeless tobacco: Never Vaping Use Vaping status: Never Used Substance Use Topics Alcohol use: Yes Comment: Rarely Drug use: No Current Outpatient Medications Medication Sig dulaglutide (TRULICITY) 1.5 mg/0.5 mL pen injector Inject 1.5 mg subcutaneously one time a week. blood sugar diagnostic test strip Use with blood glucose test once daily, Insulin Dep? No Lancets Use with blood glucose test once daily. Insulin Dep? Yes CPAP/BIPAP/OTHER Type .CPAPSettings into a note to see current settings/supplies/DME information. atorvastatin (LIPITOR) 40 mg tablet Take 1 tablet by mouth daily at bedtime. For cholesterol. lisinopril (ZESTRIL) 20 mg tablet Take 1 tablet by mouth once daily. CPAP/BIPAP/OTHER Type .CPAPSettings into a note to see current settings/supplies/DME information. vitamin B complex (B COMPLEX ORAL) Take by mouth once daily. No current facility-administered medications for this visit. ALLERGIES Allergen Reactions Oxaliplatin Anaphylaxis Went to [facility] ER 02/08/08 Metformin Diarrhea Severe diarrhea. DM: Reports overall feeling well. Medication side effects: No. Home sugar checks: 160 Hypoglycemic spells: No. Watching diet: Yes. Unexpected weight loss: No. Polyuria, polydipsia: No. Vision Changes: No. Foot lesions or numbness or pain: Neuropathy from chemo. Weight 183 PHYSICAL EXAMINATION: VIDEO EXAM: (if completed, performed via video enabled technology) GENERAL: alert and appropriate, in no distress and unable to get camera to view ASSESSMENT and PLAN: ASSESSMENT/PLAN: 1. Obesity, Class II, BMI 35-39.9 - ICD9: 278.00, ICD10: E66.812 (primary diagnosis) Increase Trulicity to 3 mg weekly Reassess in 1 month 2. Diabetes mellitus without complication (HCC) - ICD9: 250.00, ICD10: E11.9 - Uncontrolled - Increase dulaglutide (Trulicity) - DULAGLUTIDE 3 MG/0.5 ML SUBCUTANEOUS PEN INJECTOR Discussed treatment plan and patient voices understanding. Patient's questions answered appropriately. Medications and potential side effects were discussed and patient voices understanding. Return to the office as scheduled or as needed for worsening/no improvement. Morbid Obesity Class 3 There are no Patient Instructions on file for this visit. I spent a total of 10 minutes on the date of the service which included preparing to see the patient, [id number] patient care, completing clinical documentation, obtaining and/or reviewing separately obtained history, performing a medically appropriate examination, counseling and educating the patient/family/caregiver, and ordering medications, tests, or procedures Linda Menjivar APRN.TIGRE documented in this encounter [facility] 07-13-2024 Instructions Linda Menjivar APRN.CNP - 07/13/2024 1:26 PM EST 1) Increase Trulicity 1.5 mg weekly 2) Follow up in 1 month documented in this encounter [facility] 07-13-2024 Note HNO ID: [id number] Author: LINDA MENJIVAR APRN.CNP Service: ? Author Type: Nurse Practitioner Type: Progress Notes Filed: 07/13/2024 13:26 Note Text: This is a 54 year old female who presents today with: Patient presents with: Medication Follow-up HISTORY OF PRESENT ILLNESS: Angelique Wynne is a 54 year old female. Patient presents with: Medication Follow-up No problems with Trulicity. BSS 162- 235 No nausea or vomiting No diarrhea. Was on Trulicity before and did fine. 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 Other and unspecified hyperlipidemia Personal history of malignant neoplasm of rectum, rectosigmoid junction, and anus PAST SURGICAL HISTORY Procedure Laterality Date COLECTOMY PARTIAL W/ANASTOMOSIS 10/01/2007 low anterior resection 31ceea anastamosis COLON SURGERY HX COLONOSCOPY FLX DX W/COLLJ SPEC WHEN PFRMD 10/03/2008 clean anastamosis COLONOSCOPY FLX DX W/COLLJ SPEC WHEN PFRMD 10/23/09, 11/05/11 clean anastamosis - recommend 3 year follow up COLONOSCOPY FLX DX W/COLLJ SPEC WHEN PFRMD 01/03/2015 clean anastamosis - recommend 5 year follow up COLONOSCOPY FLX DX W/COLLJ SPEC WHEN PFRMD 01/06/2020 Colonoscopy COLONOSCOPY W/BIOPSY SINGLE/MULTIPLE 09/02/2007 EGD TRANSORAL BIOPSY SINGLE/MULTIPLE 09/02/2007 EGD TRANSORAL BIOPSY SINGLE/MULTIPLE 10/03/2008 [facility] TUNNELED CTR VAD W/SUBQ PORT AGE 5 YR/> 11/20/2007 Left Subclavian REMOVED PAST SURGICAL HISTORY OF 2004 needle biopsy of the left breast PAST SURGICAL HISTORY OF lysis of adhesions due to SBO ALLERGIES Oxaliplatin and Metformin MEDICATIONS Current Outpatient Medications Medication Sig dulaglutide (TRULICITY) 0.75 mg/0.5 mL pen injector Inject 0.75 mg subcutaneously one time a week. blood sugar diagnostic test strip Use with blood glucose test once daily, Insulin Dep? No Lancets Use with blood glucose test once daily. Insulin Dep? Yes CPAP/BIPAP/OTHER Type .CPAPSettings into a note to see current settings/supplies/DME information. atorvastatin (LIPITOR) 40 mg tablet Take 1 tablet by mouth daily at bedtime. For cholesterol. lisinopril (ZESTRIL) 20 mg tablet Take 1 tablet by mouth once daily. CPAP/BIPAP/OTHER Type .CPAPSettings into a note to see current settings/supplies/DME information. vitamin B complex (B COMPLEX ORAL) Take by mouth once daily. No current facility-administered medications for this visit. FAMILY HISTORY Adopted: Yes Problem Relation Age of Onset Diabetes Father Heart Father 62 [place] Hypertension Father Heart Sister cancer--possible heart attack with chemo other (Crohn's Disease) Daughter Social History Tobacco Use Smoking status: Never Smokeless tobacco: Never Vaping Use Vaping status: Never Used Substance Use Topics Alcohol use: Yes Comment: Rarely Drug use: No EXAM: BP 132/80 Pulse 75 Wt 83 kg (183 lb) LMP 09/19/2017 BMI 36.96 kg/m? PHYSICAL EXAM: Physical Exam Vitals reviewed. Constitutional: Appearance: Normal appearance. Cardiovascular: Rate and Rhythm: Normal rate and regular rhythm. Pulses: Normal pulses. Heart sounds: Normal heart sounds. Pulmonary: Effort: Pulmonary effort is normal. Breath sounds: Normal breath sounds. Musculoskeletal: General: Normal range of motion. Comments: Moves all ext. And walks w/o assistive device Neurological: Mental Status: She is alert and oriented to person, place, and time. LABS: ASSESSMENT/PLAN: 1. Diabetes mellitus without complication (HCC) - ICD9: 250.00, ICD10: E11.9 - Controlled - Continue current medications - DULAGLUTIDE 1.5 MG/0.5 ML SUBCUTANEOUS PEN INJECTOR Discussed treatment plan and patient voices understanding. Patient's questions answered appropriately. Medications and potential side effects were discussed and patient voices understanding. Return to the office as scheduled or as needed for worsening/no improvement. Linda Menjivar, BLEACH CHLORINATOR.[facility] 07-13-2024 History of Presen t illness Narrative This is a 54 year old female who presents today with: Patient presents with: Medication Follow-up HISTORY OF PRESENT ILLNESS: Angelique Wynne is a 54 year old female. Patient presents with: Medication Follow-up No problems with Trulicity. BSS 162- 235 No nausea or vomiting No diarrhea. Was on Trulicity before and did fine. 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 Other and unspecified hyperlipidemia Personal history of malignant neoplasm of rectum, rectosigmoid junction, and anus PAST SURGICAL HISTORY Procedure Laterality Date COLECTOMY PARTIAL W/ANASTOMOSIS 10/01/2007 low anterior resection 31ceea anastamosis COLON SURGERY HX COLONOSCOPY FLX DX W/COLLJ SPEC WHEN PFRMD 10/03/2008 clean anastamosis COLONOSCOPY FLX DX W/COLLJ SPEC WHEN PFRMD 10/23/09, 11/05/11 clean anastamosis - recommend 3 year follow up COLONOSCOPY FLX DX W/COLLJ SPEC WHEN PFRMD 01/03/2015 clean anastamosis - recommend 5 year follow up COLONOSCOPY FLX DX W/COLLJ SPEC WHEN PFRMD 01/06/2020 Colonoscopy COLONOSCOPY W/BIOPSY SINGLE/MULTIPLE 09/02/2007 EGD TRANSORAL BIOPSY SINGLE/MULTIPLE 09/02/2007 EGD TRANSORAL BIOPSY SINGLE/MULTIPLE 10/03/2008 [facility] TUNNELED CTR VAD W/SUBQ PORT AGE 5 YR/> 11/20/2007 Left Subclavian REMOVED PAST SURGICAL HISTORY OF 2004 needle biopsy of the left breast PAST SURGICAL HISTORY OF lysis of adhesions due to SBO ALLERGIES Oxaliplatin and Metformin MEDICATIONS Current Outpatient Medications Medication Sig dulaglutide (TRULICITY) 0.75 mg/0.5 mL pen injector Inject 0.75 mg subcutaneously one time a week. blood sugar diagnostic test strip Use with blood glucose test once daily, Insulin Dep? No Lancets Use with blood glucose test once daily. Insulin Dep? Yes CPAP/BIPAP/OTHER Type .CPAPSettings into a note to see current settings/supplies/DME information. atorvastatin (LIPITOR) 40 mg tablet Take 1 tablet by mouth daily at bedtime. For cholesterol. lisinopril (ZESTRIL) 20 mg tablet Take 1 tablet by mouth once daily. CPAP/BIPAP/OTHER Type .CPAPSettings into a note to see current settings/supplies/DME information. vitamin B complex (B COMPLEX ORAL) Take by mouth once daily. No current facility-administered medications for this visit. FAMILY HISTORY Adopted: Yes Problem Relation Age of Onset Diabetes Father Heart Father 62 [place] Hypertension Father Heart Sister cancer--possible heart attack with chemo other (Crohn's Disease) Daughter Social History Tobacco Use Smoking status: Never Smokeless tobacco: Never Vaping Use Vaping status: Never Used Substance Use Topics Alcohol use: Yes Comment: Rarely Drug use: No EXAM: BP 132/80 Pulse 75 Wt 83 kg (183 lb) LMP 09/19/2017 BMI 36.96 kg/m PHYSICAL EXAM: Physical Exam Vitals reviewed. Constitutional: Appearance: Normal appearance. Cardiovascular: Rate and Rhythm: Normal rate and regular rhythm. Pulses: Normal pulses. Heart sounds: Normal heart sounds. Pulmonary: Effort: Pulmonary effort is normal. Breath sounds: Normal breath sounds. Musculoskeletal: General: Normal range of motion. Comments: Moves all ext. And walks w/o assistive device Neurological: Mental Status: She is alert and oriented to person, place, and time. LABS: ASSESSMENT/PLAN: 1. Diabetes mellitus without complication (HCC) - ICD9: 250.00, ICD10: E11.9 - Controlled - Continue current medications - DULAGLUTIDE 1.5 MG/0.5 ML SUBCUTANEOUS PEN INJECTOR Discussed treatment plan and patient voices understanding. Patient's questions answered appropriately. Medications and potential side effects were discussed and patient voices understanding. Return to the office as scheduled or as needed for worsening/no improvement. Linda Menjivar APRN.CNP documented in this encounter [facility] 06-10-2024 Telephone encounter Note Images from the original note were not included. [facility] 06-10-2024 Miscellaneous Notes Images from the original note were not included. documented in this encounter [facility] 06-09-2024 Note HNO ID: [id number] Author: LUIS STALEY MD Service: ? Author Type: Physician Type: Progress Notes Filed: 06/09/2024 09:38 Note Text: Patient presents with: 6 Month Exam HPI: Patient presents today for office visit for routine 6 month follow up. DM: Has not been testing her sugars at home. Has been off Ozempic for about 3 months. A1c up at 9.6 Was to have gastric bypass surgery in mar/apr. Ended up having emergent bowel obstruction surgery. Gastric bypass postponed to 05/19/24. Opted out of surgery at that time. Watches diet. Sugars are much higher. She liked trulicity much better. Cannot tolerated metformin. Wants to retry. Does not have strips and lancets. HLD: No myalgias Watches diet. HTN: Monitors BP occ Denies chest pain and shortness of breath Denies headaches and dizziness Denies palpitations and syncope Denies edema JANA: Using CPAP nightly. No snoring. Sleeping well through the night when she wears CPAP. Feels rested when waking. No daytime fatigue. Benefiting from use and should continue therapy. Latest Ref Rng 06/01/2024 Hemoglobin A1C 4.3 - 5.6 % 9.6 (H) Estimated Average Glucose mg/dL 229 CEA <=2.9 ng/mL 0.6 CEA has been stable for years. Will follow. Was in the hospital in the fall for sbo. Was to follow up after but never did. Underwent lysis of adhesions by Dr García at [facility] MEDICATIONS: Current Outpatient Medications Medication Sig CPAP/BIPAP/OTHER Type .CPAPSettings into a note to see current settings/supplies/DME information. atorvastatin (LIPITOR) 40 mg tablet Take 1 tablet by mouth daily at bedtime. For cholesterol. lisinopril (ZESTRIL) 20 mg tablet Take 1 tablet by mouth once daily. CPAP/BIPAP/OTHER Type .CPAPSettings into a note to see current settings/supplies/DME information. vitamin B complex (B COMPLEX ORAL) Take by mouth once daily. semaglutide (OZEMPIC) 0.25 mg or 0.5 mg (2 mg/3 mL) pen Inject 0.5 mg subcutaneously one time a week. (Patient not taking: Reported on 04/20/2024) Lancets lancets Use with blood glucose test once daily. Insulin Dep? Yes (Patient not taking: Reported on 04/20/2024) blood sugar diagnostic test strip Use with blood glucose test once daily, Insulin Dep? No (Patient not taking: Reported on 04/20/2024) Blood-Glucose Meter Test One time a day. (Patient not taking: Reported on 04/20/2024) Blood Glucose Control, Normal soln Use as directed (Patient not taking: Reported on 04/20/2024) No current facility-administered medications for this visit. ALLERGIES: ALLERGIES Allergen Reactions Oxaliplatin Anaphylaxis Went to [facility] ER 02/08/08 PAST MEDICAL HISTORY [...] Never Smokeless tobacco: Never Vaping Use Vaping status: Never Used Substance Use Topics Alcohol use: Yes Comment: Rarely Drug use: No Reviewed current medications, allergies, past medical history, surgical history, family history and social history today. REVIEW OF SYSTEMS No current gi issues. All other reviewed and negative other than HPI. HEALTH MAINTENANCE: Reviewed health maintenance issues today and recommended the following in detail. BP Controlled (<130/80) Never done DTaP,Tdap,Td Vaccine(1 - Tdap) Never done Pneumococcal Vaccine: 50+(1 of 2 - PCV) Never done Shingrix Vaccine(1 of 2) Never done Dilated Retinal Exam due on 02/21/2022 Cervical Cancer Screening due on 11/19/2022 Covid-19 Vaccine(2023- season) due on 02/01/2024 Diabetic Foot Exam due on (more content not included)... [facility] 06-09-2024 History of Presen t illness Narrative Patient presents with: 6 Month Exam HPI: Patient presents today for office visit for routine 6 month follow up. DM: Has not been testing her sugars at home. Has been off Ozempic for about 3 months. A1c up at 9.6 Was to have gastric bypass surgery in mar/apr. Ended up having emergent bowel obstruction surgery. Gastric bypass postponed to 05/19/24. Opted out of surgery at that time. Watches diet. Sugars are much higher. She liked trulicity much better. Cannot tolerated metformin. Wants to retry. Does not have strips and lancets. HLD: No myalgias Watches diet. HTN: Monitors BP occ Denies chest pain and shortness of breath Denies headaches and dizziness Denies palpitations and syncope Denies edema JANA: Using CPAP nightly. No snoring. Sleeping well through the night when she wears CPAP. Feels rested when waking. No daytime fatigue. Benefiting from use and should continue therapy. Latest Ref Rng 06/01/2024 Hemoglobin A1C 4.3 - 5.6 % 9.6 (H) Estimated Average Glucose mg/dL 229 CEA <=2.9 ng/mL 0.6 CEA has been stable for years. Will follow. Was in the hospital in the fall for sbo. Was to follow up after but never did. Underwent lysis of adhesions by Dr García at [facility] MEDICATIONS: Current Outpatient Medications Medication Sig CPAP/BIPAP/OTHER Type .CPAPSettings into a note to see current settings/supplies/DME information. atorvastatin (LIPITOR) 40 mg tablet Take 1 tablet by mouth daily at bedtime. For cholesterol. lisinopril (ZESTRIL) 20 mg tablet Take 1 tablet by mouth once daily. CPAP/BIPAP/OTHER Type .CPAPSettings into a note to see current settings/supplies/DME information. vitamin B complex (B COMPLEX ORAL) Take by mouth once daily. semaglutide (OZEMPIC) 0.25 mg or 0.5 mg (2 mg/3 mL) pen Inject 0.5 mg subcutaneously one time a week. (Patient not taking: Reported on 04/20/2024) Lancets lancets Use with blood glucose test once daily. Insulin Dep? Yes (Patient not taking: Reported on 04/20/2024) blood sugar diagnostic test strip Use with blood glucose test once daily, Insulin Dep? No (Patient not taking: Reported on 04/20/2024) Blood-Glucose Meter Test One time a day. (Patient not taking: Reported on 04/20/2024) Blood Glucose Control, Normal soln Use as directed (Patient not taking: Reported on 04/20/2024) No current facility-administered medications for this visit. ALLERGIES: ALLERGIES Allergen Reactions Oxaliplatin Anaphylaxis Went to [facility] ER 02/08/08 PAST MEDICAL HISTORY [...] Never Smokeless tobacco: Never Vaping Use Vaping status: Never Used Substance Use Topics Alcohol use: Yes Comment: Rarely Drug use: No Reviewed current medications, allergies, past medical history, surgical history, family history and social history today. REVIEW OF SYSTEMS No current gi issues. All other reviewed and negative other than HPI. HEALTH MAINTENANCE: Reviewed health maintenance issues today and recommended the following in detail. BP Controlled (<130/80) Never done DTaP,Tdap,Td Vaccine(1 - Tdap) Never done Pneumococcal Vaccine: 50+(1 of 2 - PCV) Never done Shingrix Vaccine(1 of 2) Never done Dilated Retinal Exam due on 02/21/2022 Cervical Cancer Screening due on 11/19/2022 Covid-19 Vaccine() due on 02/01/2024 Diabetic Foot Exam due on 06/13/2024 Mammogram Screening due on 09/04/2024 VITALS: BP 138/74 Pulse 85 Ht 149.9 cm (4' 11) Wt 83.9 kg (185 lb) LMP 09/19/2017 SpO2 96% BMI 37.37 kg/m Last 4 Encounter Wt Readings: Date: Wt: 05/05/2024 84.1 kg (185 lb 4.8 oz) 04/20/2024 84 kg (185 lb 3 oz) 12/08/2023 81.6 kg (180 lb) 12/05/2023 83.5 kg (184 lb) PHYSICAL EXAMINATION: General appearance: Well appearing, [...] Feet:Shoes and socks removed, No deformities, ulcers, calluses, normal distal pulses, and sensitive to 10 gm monofilament ASSESSMENT/PLAN: 1. Mixed hyperlipidemia - ICD9: 272.2, ICD10: E78.2 (primary diagnosis) - Continue current medications - Counseled on healthy diet and regular exercise 2. Essential hypertension - ICD9: 401.9, ICD10: I10 - Controlled - Continue current medications 3. Diabetes mellitus without complication (HCC) - ICD9: 250.00, ICD10: E11.9 - Worsening control - try trulicity again. Did well with it in the past. She had adhesions causing her gi issues but I think would be ok to try again. Discussed risks and benefits of new medication with the patient. Advised them to call if any side effects or questions. Watch diet. Follow sugars. A1c in three months but follow up with us in one month. - BLOOD SUGAR DIAGNOSTIC STRIPS - LANCETS - DULAGLUTIDE 0.75 MG/0.5 ML SUBCUTANEOUS PEN INJECTOR - HEMOGLOBIN A1C 4. Personal history of rectal cancer - ICD9: V10.06, ICD10: Z85.048 - stable. 5. Obesity, Class II, BMI 35-39.9 - ICD9: 278.00, ICD10: E66.812 - follow progress. 6. Encounter for screening mammogram for malignant neoplasm of breast - ICD9: V76.12, ICD10: Z12.31 - Follow up for annual exam in one year. - GUICHO SCREENING Luis Staley MD documented in this encounter [facility] 06-01-2024 Telephone encounter Note placed [facility] 06-01-2024 Miscellaneous Notes placed Patient at lab now, has 6 month appt next week Does she need anything completed? documented in this encounter [facility] 06-01-2024 Telephone encounter Note Patient at lab now, has 6 month appt next week Does she need anything completed? [facility] 05-10-2024 Instructions Do Mcclain APRN.VEGETABLE WORKER - 05/10/2024 8:18 AM EST Patient Instructions: JANA: Continue PAP therapy at current settings Order will be sent to DME for supplies: [facility] [employer]. Please get PAP download. Will see back in 1 month. Insurance: Face to face examination completed 05/10/2024. Patient has fulfilled the insurance requirement within a 31-90 day period after starting PAP therapy. I'm not sure if patient has met standard compliance measures. Please send PAP download. Please send patient PAP supplies as covered by insurance. [facility]. Follow up as discussed in 4 weeks to check compliance. Do Mcclain APRN.VEGETABLE WORKER PAP Supply Guidelines Below are the guidelines for reordering your supplies. You will be responsible for your deductible, co-payments, and out of pocket expenses. Item Medicare & Commercial Insurance Medicaid & HCAP Nasal Mask (no headgear) 1 every 3 months 1 per year Nasal Mask Cushion 1 every month 2 per year Full Face Mask (no headgear) 1 every 3 months 1 per year Full Face Mask Cushion 1 every month *Self-Pay Nasal Pillows 2 every month 2 per year Headgear 1 every 6 months 1 per year Chin Strap 1 every 6 months 2 per year Tubing 1 every 3 months 1 per year Filters: Reusable 1 every 6 months 4 per year Filters: Disposable 2 every month 1 per month Humidifier Chamber(disposable) 1 every 6 months *Self-Pay documented in this encounter [facility] 05-10-2024 History of Presen t illness Narrative Images from the original note were not included. [facility] Virtual Visit Follow Up/ Established Patient Visit PATIENT NAME: Angelique Wynne [facility] Rules (O.A.C. ): This visit was conducted as a Virtual Visit, with patient's permission, via Zoom. It required patient-provider interaction for the medical decision making as documented below. Patient stated first & last name: Angelique Wynne Patient stated : 1970 Patient stated current location: [place] [id number] I have communicated my name, Do Mcclain APRN.CNP, and active licensure Adult Certified Nurse Practitioner in the Sleep Medicine Center at [facility]. The patient's identity and physical location were verified at the time of this visit. Either the patient or their legal sales account representative has been informed of the risks and benefits of -- and alternatives to -- treatment through a remote evaluation and consents to proceed with the evaluation remotely. Virtual visits are a convenient way for us to meet, but there are some situations in which an in-person evaluation may be required at a later time. I want to check in to confirm your consent to be seen virtually today. Consent given: Yes <Assessment/Plan from LAST VISIT> Date of last visit : 12/08/2023 IMPRESSION/PLAN: Obstructive Sleep Apnea - Will start Auto CPAP 5-18 cmH2O with a comfortable mask . - I will have a prescription sent to a [employer] company - [facility] [phone] who will be calling you in the next 1-2 weeks or so. Please call them directly or us if you do not hear from them in this time frame. - You should be eligible for new supplies approximately every 3-6 months, depending on your insurance coverage. - If your mask doesn't fit well, call the DME company before 30 days are up to [...] which included preparing to see the patient, [id number] patient care, completing clinical documentation, performing a medically appropriate examination, counseling and educating the patient/family/caregiver, ordering medications, tests, or procedures, communicating results to the patient/family/caregiver, and care coordination (not separately reported). Jesus Ortiz MD <End Assessment/Plan from last visit> CURRENT VISIT: 05/10/2024 Interval history: May have gotten device end of December 2023. Still having some difficult nights. Will remove it. Next night will wear it. Noticeable benefits. No snoring. Not waking up as much. Less tossing and turning. Getting a deeper sleep than ever before. Less EDS. Follow up visit for JANA (start PAP) . Relevant study results reviewed as noted below, if applicable. A Home Sleep Test (HST) performed on 11/06/2023 revealed an AHI of 16.3; supine index of 12.4; and a minimum oxygen saturation of 81%. SLEEP APNEA Sleep apnea type : JANA, Most Recent Apnea-Hypopnea Index (AHI): Total AHI 16.3, Supine AHI 12.4 Treatment : PAP therapy DME: [facility] PAP History: Uses AutoPAP for 6 hours per night, 7 nights per week. Current PAP settin-18 cm H2O. Pressure is comfortable. Difficulties with AutoPAP: None Reviewed objective PAP compliance data: Mask type: Nasal mask Mask issues: No issues. Uses chin strap: No Uses ramp function: Yes, Protocol: Auto Uses humidity: Yes, Protocol: Distilled water. There is a perceived benefit by the patient: Yes Observers report abolition of snoring with AutoPAP use. SLEEP HYGIENE QUESTIONS: Bedtime : 4917-5672 Wake up Time : 7791-9479 Time it takes to fall sleep : 15-20 minutes Activities in bed before falling asleep : None Number of times patient wakes up per night : 0-1 Reason (s) why patient wakes up during the night : Void Estimated total sleep time ( in a 24 hour period of time) : 7 Naps : No OTHER RELEVANT LABS AND STUDIES: Ferritin Date Value Ref Range Status 10/17/2023 126.0 14.7 - 205.1 ng/mL Final 03/14/2008 51.2 9.0 - 150.0 ng/mL Final Transferrin Saturation Date Value Ref Range Status 10/17/2023 29.7 15.0 - 57.0 % Final 03/14/2008 11 11 - 46 % Final Hemoglobin Date Value Ref Range Status 04/24/2024 14.1 11.5 - 15.5 g/dL Final 12/01/2023 13.6 11.5 - 15.5 g/dL Final Iron Date Value Ref Range Status 10/17/2023 83 41 - 186 ug/dL Final 03/14/2008 36 30 - 140 ug/dL Final TIBC Date Value Ref Range Status 10/17/2023 279 232 - 386 ug/dL Final 03/14/2008 319 210 - 415 ug/dL Final No results found. PATIENT-ENTERED QUESTIONNAIRE SLEEP SCORES 05/03/2024 Sleep Questions Reason for visit: Sleep apnea Accidents or near accidents due to drowsy drivin 12/01/2023 05/03/2024 [place] Sleepiness Scale Score 0 (No clinically significant daytime sleepiness) 1 (No clinically significant daytime sleepiness) 12/01/2023 05/03/2024 PROMIS CAT Sleep Disturbance PROMIS Sleep Disturbance T-Score 44 (within normal limits) 46 (within normal limits) PROMIS Sleep Disturbance Percentile 73 66 09/30/2023 10/31/2023 12/01/2023 PHQ-9 Score 0 0 0 06/09/2023 09/30/2023 05/03/2024 PROMIS Global Health - (T-Scores - the mean of general population = 50. Five points is a clinically meaningful difference.) Physical T-Score 54.1 50.8 57.7 Mental T-Score 45.8 53.3 56 CURRENT MEDICATIONS: CPAP/BIPAP/OTHER Type .CPAPSettings into a note to see current settings/supplies/DME information. atorvastatin (LIPITOR) 40 mg tablet Take 1 tablet by mouth daily at bedtime. For cholesterol. lisinopril (ZESTRIL) 20 mg tablet Take 1 tablet by mouth once daily. CPAP/BIPAP/OTHER Type .CPAPSettings into a note to see current settings/supplies/DME information. vitamin B complex (B COMPLEX ORAL) Take by mouth once daily. semaglutide (OZEMPIC) 0.25 mg or 0.5 mg (2 mg/3 mL) pen Inject 0.5 mg subcutaneously one time a week. (Patient not taking: Reported on 04/20/2024) Lancets lancets Use with blood glucose test once daily. Insulin Dep? Yes (Patient not taking: Reported on 04/20/2024) blood sugar diagnostic test strip Use with blood glucose test once daily, Insulin Dep? No (Patient not taking: Reported on 04/20/2024) Blood-Glucose Meter Test One time a day. (Patient not taking: Reported on 04/20/2024) Blood Glucose Control, Normal soln Use as directed (Patient not taking: Reported on 04/20/2024) Review of Systems Constitutional: Negative. Respiratory: Negative. Cardiovascular: Negative. Genitourinary: Positive for nocturia. VITAL SIGNS: Deferred due to virtual visit. PHYSICAL EXAMINATION: Constitutional: Appearance: Well groomed. Well nourished FEMALE. Very pleasant. Neurological: General: No focal deficit present. Mental Status: A&OX3 (person, place, and time). Speech: Clear, projects well. Memory: Intact, responses appropriate. Mood and Affect: Mood normal. Behavior: Behavior normal Assessment & Plan Diagnosis: Jana (obstructive sleep apnea) (primary encounter diagnosis) Overview: Angelique Wynne is a 54 year old year old female with a PMH as noted who presents via Virtual Visit for JANA (start PAP). - Doing well with PAP therapy. May have gotten device end of December 2023. Still having some difficult nights. Will remove it. Next night will wear it. Noticeable benefits. No snoring. Not waking up as much. Less tossing and turning. Getting a deeper sleep than ever before. Less EDS. - Denies mask or pressure intolerance. - No PAP download available to review with patient. - Compliant and benefiting from treatment. - Face to face examination completed May 10, 2024 - Angelique Wynne has fulfilled her insurance requirement with an annual visit for PAP therapy, average usage is 3-6 hours, and compliancy of >70 %. Compliance Report: 90 Day >= 4 hours - 52/ (57%) Average # hours nights used - 3 hours 44 minute Pressure 90th % - N/A Average time in large leak per day - 5.86 Residual AHI - 0.48 Plan: JANA: Continue PAP therapy at current settings Order will be sent to DME for supplies: [facility] [employer]. Please get PAP download. Will see back in 1 month. Insurance: Face to face examination completed 05/10/2024. Patient has fulfilled the insurance requirement within a 31-90 day period after starting PAP therapy. I'm not sure if patient has met standard compliance measures. Please send PAP download. Please send patient PAP supplies as covered by insurance. [facility]. Follow up as discussed in 4 weeks to check compliance. I spent a total of 35 minutes. This was a new patient to me on the date of the service which included preparing to see the patient, [id number] patient care, completing clinical documentation, counseling and educating the patient/family/caregiver and ordering medications, tests, or procedures. Do Mcclain APRN.CNP Activity Duration Pre-charting 10 minutes Current session 24 minutes Total time: 35 minutes documented in this encounter [facility] 05-10-2024 Note HNO ID: [id number] Author: DO MCCLAIN APRN.CNP Service: ? Author Type: Nurse Practitioner Type: Progress Notes Filed: 05/10/2024 08:19 Note Text: [facility] Virtual Visit Follow Up/ Established Patient Visit PATIENT NAME: Angelique Wynne [place] Telehealth Rules (O.A.C. ): This visit was conducted as a Virtual Visit, with patient's permission, via Zoom. It required patient-provider interaction for the medical decision making as documented below. Patient stated first AND last name: Angelique Wynne Patient stated : 1970 Patient stated current location: [place] [id number] I have communicated my name, Do McclainLESLIE.TIGRE, and active licensure Adult Certified Nurse Practitioner in the Sleep Medicine Center at [facility]. The patient's identity and physical location were verified at the time of this visit. Either the patient or their legal sales account representative has been informed of the risks and benefits of -- and alternatives to -- treatment through a remote evaluation and consents to proceed with the evaluation remotely. Virtual visits are a convenient way for us to meet, but there are some situations in which an in-person evaluation may be required at a later time. I want to check in to confirm your consent to be seen virtually today. Consent given: Yes Date of last visit : 12/08/2023 IMPRESSION/PLAN: Obstructive Sleep Apnea - Will start Auto CPAP 5-18 cmH2O with a comfortable mask . - I will have a prescription sent to a [employer] company - [facility] [employer] [phone] who will be calling you in the next 1-2 weeks or so. Please call them directly or us if you do not hear from them in this time frame. - You should be eligible for new supplies approximately every 3-6 months, depending on your insurance coverage. - If your mask doesn't fit well, call the [employer] company before 30 days are up to [...] which included preparing to see the patient, [id number] patient care, completing clinical documentation, performing a medically appropriate examination, counseling and educating the patient/family/caregiver, ordering medications, tests, or procedures, communicating results to the patient/family/caregiver, and care coordination (not separately reported). Jesus Ortiz MD CURRENT VISIT: 05/10/2024 Interval history: May have gotten device end of December 2023. Still having some difficult nights. Will remove it. Next night will wear it. Noticeable benefits. No snoring. Not waking up as much. Less tossing and turning. Getting a deeper sleep than ever before. Less EDS. Follow up visit for JANA (start PAP) . Relevant study results reviewed as noted below, if applicable. A Home Sleep Test (HST) performed on 11/06/2023 revealed an AHI of 16.3; supine index of 12.4; and a minimum oxygen saturation of 81%. SLEEP APNEA Sleep apnea type : JANA, Most Recent Apnea-Hypopnea Index (AHI): Total AHI 16.3, Supine AHI 12.4 Treatment : PAP therapy DME: [facility] [place] History: Uses AutoPAP for 6 hours per night, 7 nights per week. Current PAP settin-18 cm H2O. Pressure is comfortable. Difficulties with AutoPAP: None Reviewed objective PAP compliance data: Mask type: Nasal mask Mask issues: No issues. Uses chin strap: No Uses ramp function: Yes, Protocol: Auto Uses humidity: Yes, Protocol: Distilled water. There is a perceived benefit by the patient: Yes Observers report abolition of snoring with AutoPAP use. SLEEP HYGIENE QUESTIONS: Bedtime : 2484-8728 Wake up Time : 4738-5848 Time it takes to fall sleep : 15-20 minutes Activities in bed before falling asleep : None Number of times patient wakes up per night : 0-1 Reason (s) why patient wakes up during the night : Void Estimated total sleep time ( in a 24 hour period of time) : 7 Naps : No OTHER RELEVANT LABS AND STUDIES: Ferritin Date Value Ref Range Status 10/17/2023 126.0 14.7 - 205.1 ng/mL Final 03/14/2008 51.2 9.0 - 150.0 ng/mL Final Transferrin Saturation Date Value Ref Range Status 10/17/2023 29.7 15.0 - 57.0 % Final 03/14/2008 11 11 - 46 % Final Hemoglobin Date Value Ref Range Status 04/24/2024 14.1 11.5 - 15.5 g/dL Final 12/01/2023 13.6 11.5 - 15.5 g/dL Final Iron Date Value Ref Range Status 10/17/2023 83 41 - 186 ug/dL Final 03/14/2008 36 30 - 140 ug/dL Final TIBC Date Value Ref Range Status 10/17/2023 279 232 - 386 ug/dL Final (more content not included)... [facility] 05-05-[address] - 05/05/2024 9:47 AM EST Instructions for Liquid Diet before surgery 1. Start the full liquid diet 2 weeks before surgery - Use only the approved protein shakes: 4.5 bottles/day Slim Fast Advanced Nutrition OR 5.5 packets/day Light Start Fountain Breakfast Essentials mixed with 1% or skim milk OR 5 bottles/day Atkins Protein Shake (15 gm protein version) OR 4.5 bottles/day Boost Glucose Control OR 4.5 bottles/day OWYN (20 gm protein and 180 calories version) - Drink at least 64 oz of fluid per day (no calories, no caffeine, no carbonation) - Other clear liquids you can include: clear broth, sugar free jello or popsicles, decaffeinated coffee or tea, no sugar added flavoring packets such as Crystal Lite - Take a Super B Complex vitamin (75-100 mg of Thiamin) daily during the liquid diet 2. Day before surgery: - Finish your last protein shake before 6 pm - Drink at least 64 oz of fluid per day (no calories, no caffeine, no carbonation) - Drink 28-32 fl oz of regular sports drink (Gatorade, Powerade, etc.) 3. Day of surgery: - Drink 12-20 fl oz of regular sports drink - Stop drinking liquids 2 hours before scheduled arrival time 4. Advance diet as tolerated after surgery: - Phase 1- Clear liquids (only in the hospital) - Phase 2- Full liquids. Try to consume at least 60 grams of protein per day in the form of a liquid, high protein shake. Aim to drink 4-8 fl oz of protein shake 3 times per day. Try to drink at least 64 oz per day of water or other clear liquids between shakes. - Phase 3- Soft, high protein foods. Try to consume 3-4 oz of protein 3 times per day from poultry, beef, fish, seafood, eggs, cheese, Polish yogurt, cottage cheese, beans, lentils, tofu. Choose meat products that are tender, shredded and/or ground to increase tolerance. Remember to chew food well, eat slow, take small bites Nutrition Monitoring & Evaluation: Follow pre op diet and fluid guidelines Criteria: weight check Need for Follow up: 2 weeks post op documented in this encounter [facility] 05-05-2024 History of Presen t illness Narrative TOPIC: LIFE STYLE CHANGES: Pre-op weight loss surgery (LSG): Diet and Exercise PROGRESS: Nutrition Intervention (date of last encounter 11/28/23): 1.Starting ~3 weeks after surgery take daily bariatric vitamins Some examples of vitamins/mineral companies: - Bariatric Fusion: 4 Complete Multivitamin chewables per day OR 1 Multivitamin capsule and 6876-0221 mg calcium citrate per day OR 2 Multivitamin soft chews per day + 3 calcium citrate soft chews + 1 iron soft chew per day [email or web address] - Pro[employer] Health: 1 Bariatric Multivitamin w/ iron (capsule or chewable) and 3790-7530 mg calcium citrate per day [email or web address] - Bariatric Choice: 1 Once Daily Bariatric Multivitamin capsule and 7783-7327 mg calcium citrate per day OR 4 All-in-One Bariatric Multivitamin chewables per day [email or web address] - Bariatric Advantage: 1 Ultra Solo multivitamin w/ iron (chewable or capsule) OR 2 chewable Advanced Multi EA w/ iron and 4596-9218 mg calcium citrate per day OR 2 Multi Chewy Bites and 2879-7864 mg calcium citrate and 45-60 mg iron per day [email or web address] - Bariatric Pal: 1 Multivitamin One (chewable or capsule) and 9059-5968 mg calcium citrate per day OR 4 All-in-One Multivitamin chewables per day [email or web address] [email or web address] - Barilife: 1 Just One Bariatric Multivitamin w/ iron (chewable or capsule) and 4964-0291 mg calcium citrate per day [email or web address] - Barimelts: 2 Multivitamin w/ iron tablets and 1565-6231 mg calcium citrate per day [email or web address] 2. Protein goal: 68 grams protein/day 3. [...] Advanced Nutrition OR 5.5 packets Light Start Fountain Breakfast Essentials mixed with 1% or skim milk OR 5 Atkins Protein Shakes (15 gm protein version) OR 4.5 bottles Glucose Controlled Boost OR 4.5 bottles OWYN (20 gm protein version) 7. Advance diet as tolerated after surgery. Use the Your Guide to Surgery for guidance and meal plans CHANGES IN TREATMENT: Patient met goal(s): Partially Diagnosis: has not changed. Allergies: Oxaliplatin Anthropometrics: Height: Last 1 Encounter Ht Readings: Date: Ht: 04/20/2024 149.9 cm (4' 11.02) Weight: Last 1 Encounter Wt Readings: Date: Wt: 04/20/2024 84 kg (185 lb 3 oz) Body mass index is 37.41 kg/m . Resting Metabolic Rate: 1339 Malnutrition Screening Significant unintentional weight loss? No [...] limitations affecting learning: None Likelihood of Adherence: Moderate Patient participated in preop bariatric surgery shared nutrition appointment. Patient participated actively in group. She is scheduled for surgery (LSG) 05/19/24 and directed to start the pre-op diet 05/05/24. She will follow the full liquid diet and is using appropriate protein shakes. Patient has all appropriate beverages and super B complex supplement. Nutrition Diagnosis: Overweight/obesity, related to, decreased energy needs, as evidenced by BMI above normative standard for age and gender. Nutrition Intervention 05/05/2024: Instructions for Liquid Diet before surgery 1. Start the full liquid diet 2 weeks before surgery - Use only the approved protein shakes: 4.5 bottles/day Slim Fast Advanced Nutrition OR 5.5 packets/day Light Start Fountain Breakfast Essentials mixed with 1% or skim milk OR 5 bottles/day Atkins Protein Shake (15 gm protein version) OR 4.5 bottles/day Boost Glucose Control OR 4.5 bottles/day OWYN (20 gm protein and 180 calories version) - Drink at least 64 oz of fluid per day (no calories, no caffeine, no carbonation) - Other clear liquids you can include: clear broth, sugar free jello or popsicles, decaffeinated coffee or tea, no sugar added flavoring packets such as Crystal Lite - Take a Super B Complex vitamin (75-100 mg of Thiamin) daily during the liquid diet 2. Day before surgery: - Finish your last protein shake before 6 pm - Drink at least 64 oz of fluid per day (no calories, no caffeine, no carbonation) - Drink 28-32 fl oz of regular sports drink (Gatorade, Powerade, etc.) 3. Day of surgery: - Drink 12-20 fl oz of regular sports drink - Stop drinking liquids 2 hours before scheduled arrival time 4. Advance diet as tolerated after surgery: - Phase 1- Clear liquids (only in the hospital) - Phase 2- Full liquids. Try to consume at least 60 grams of protein per day in the form of a liquid, high protein shake. Aim to drink 4-8 fl oz of protein shake 3 times per day. Try to drink at least 64 oz per day of water or other clear liquids between shakes. - Phase 3- Soft, high protein foods. Try to consume 3-4 oz of protein 3 times per day from poultry, beef, fish, seafood, eggs, cheese, Polish yogurt, cottage cheese, beans, lentils, tofu. Choose meat products that are tender, shredded and/or ground to increase tolerance. Remember to chew food well, eat slow, take small bites Nutrition Monitoring & Evaluation: Follow pre op diet and fluid guidelines Criteria: weight check Need for Follow up: 2 weeks post op Appointment Start Time: 9:00 AM Appointment End Time: 9:35 AM Time Spent on Consult: 35 minutes - Group SIGNATURE: Rolf Patino RD PATIENT NAME: Angelique Wynne DATE: 05/05/2024 TIME: 8:15 AM PAGER: N/A documented in this encounter [facility] 05-05-2024 Note Education (BMINO) ANGELIQUE WYNNE ([id number]) 1970 F Date Time Provider Department 05/05/24 9:00 AM ROLF PATINO BMINO Reason for Visit: Reassessment [674] Patient Education [91] Primary Visit Diagnosis:Obesity, Class II, BMI 35-39.9 [E66.812] Other Visit Diagnosis:Dietary counseling and surveillance [Z71.3] During your visit today, we recorded the following information about you: Weight Height 84.1 kg 1.499 m Allergies As of Date: 05/05/2024 Noted Allergy Reaction OXALIPLATIN 02/22/2008 10 - Anaphylaxis Comments: Went to [facility] ER 02/08/08 Date Reviewed: 05/05/2024 Reviewed by: Rolf Patino RD - Fully Assessed Prescriptions as of 05/05/2024 - atorvastatin (LIPITOR) 40 mg tablet Take 1 tablet by mouth daily at bedtime. For cholesterol. - lisinopril (ZESTRIL) 20 mg tablet Take 1 tablet by mouth once daily. - CPAP/BIPAP/OTHER Type .CPAPSettings into a note to see current settings/supplies/DME information. - vitamin B complex (B COMPLEX ORAL) Take by mouth once daily. - semaglutide (OZEMPIC) 0.25 mg or 0.5 mg (2 mg/3 mL) pen Inject 0.5 mg subcutaneously one time a week. - Lancets lancets Use with blood glucose test once daily. Insulin Dep? Yes - blood sugar diagnostic test strip Use with blood glucose test once daily, Insulin Dep? No - Blood-Glucose Meter Test One time a day. - Blood Glucose Control, Normal soln Use as directed Encounter Status:Closed by ROLF PATINO on 05/05/24 [facility] 05-05-2024 Note HNO ID: [id number] Author: ROLF PATINO RD Service: ? Author Type: Registered Dietitian Type: Progress Notes Filed: 05/05/2024 09:47 Note Text: TOPIC: LIFE STYLE CHANGES: Pre-op weight loss surgery (LSG): Diet and Exercise PROGRESS: Nutrition Intervention (date of last encounter 11/28/23): 1.Starting ~3 weeks after surgery take daily bariatric vitamins Some examples of vitamins/mineral companies: - Bariatric Fusion: 4 Complete Multivitamin chewables per day OR 1 Multivitamin capsule and 4588-3684 mg calcium citrate per day OR 2 Multivitamin soft chews per day + 3 calcium citrate soft chews + 1 iron soft chew per day [email or web address] - Procare Health: 1 Bariatric Multivitamin w/ iron (capsule or chewable) and 5316-5907 mg calcium citrate per day [email or web address] - Bariatric Choice: 1 Once Daily Bariatric Multivitamin capsule and 0692-7514 mg calcium citrate per day OR 4 All-in-One Bariatric Multivitamin chewables per day [email or web address] - Bariatric Advantage: 1 Ultra Solo multivitamin w/ iron (chewable or capsule) OR 2 chewable Advanced Multi EA w/ iron and 8406-6785 mg calcium citrate per day OR 2 Multi Chewy Bites and 3085-2848 mg calcium citrate and 45-60 mg iron per day [email or web address] - Bariatric Pal: 1 Multivitamin One (chewable or capsule) and 4213-4881 mg calcium citrate per day OR 4 All-in-One Multivitamin chewables per day [email or web address]colle ctions/bariatric-vitamins - Barilife: 1 Just One Bariatric Multivitamin w/ iron (chewable or capsule) and 2254-3967 mg calcium citrate per day www.[employer] - Barimelts: 2 Multivitamin w/ iron tablets and 0674-2297 mg calcium citrate per day [email or web address] 2. Protein goal: 68 grams protein/day 3. [...] Advanced Nutrition OR 5.5 packets Light Start Fountain Breakfast Essentials mixed with 1% or skim milk OR 5 Atkins Protein Shakes (15 gm protein version) OR 4.5 bottles Glucose Controlled Boost OR 4.5 bottles OWYN (20 gm protein version) 7. Advance diet as tolerated after surgery. Use the Your Guide to Surgery for guidance and meal plans CHANGES IN TREATMENT: Patient met goal(s): Partially Diagnosis: has not changed. Allergies: Oxaliplatin Anthropometrics: Height: Last 1 Encounter Ht Readings: Date: Ht: 04/20/2024 149.9 cm (4' 11.02) Weight: Last 1 Encounter Wt Readings: Date: Wt: 04/20/2024 84 kg (185 lb 3 oz) Body mass index is 37.41 kg/m?. Resting Metabolic Rate: 1339 Malnutrition Screening Significant unintentional weight loss? No [...] limitations affecting learning: None Likelihood of Adherence: Moderate Patient participated in preop bariatric surgery shared nutrition appointment. Patient participated actively in group. She is scheduled for surgery (LSG) 05/19/24 and directed to start the pre-op diet 05/05/24. She will follow the full liquid diet and is using appropriate protein shakes. Patient has all appropriate beverages and super B complex supplement. Nutrition Diagnosis: Overweight/obesity, related to, decreased energy needs, as evidenced by BMI above normative standard for age and gender. Nutrition Intervention 05/05/2024: Instructions for Liquid Diet before surgery 1. Start the full liquid diet 2 weeks before surgery - Use only the approved protein shakes: 4.5 bottles/day Slim Fast Advanced Nutrition OR 5.5 packets/day Light Start Fountain Breakfast Essentials mixed with 1% or skim milk OR 5 bottles/day Atkins Protein Shake (15 gm protein version) OR 4.5 bottles/day Boost Glucose Control OR 4.5 bottles/day OWYN (20 gm protein and 180 calories version) - Drink at least 64 oz of fluid per day (no calories, no caffeine, no carbonation) - Other clear liquids you can include: clear broth, sugar free jello or popsicles, decaffeinated coffee or tea, no sugar added flavoring packets such as Crystal Lite - Take a Supe (more content not included)... [facility] 04-21-2024 Note HNO ID: [id number] Author: ?, ?, ? Service: ? Author Type: ? Type: Progress Notes Filed: 04/21/2024 11:51 Note Text: [facility] SPECIALTY CARE COORDINATION SURGERY SCHEDULING Received e-mail confirmation of insurance approval for Gastric Bypass. Surgery type changed from LRYGB to LSG due to recent surgery. Pending update of authorization for LSG. Confirmed surgery date of May 19 2024 with patient. Surgical episode request sent to [facility] surgery scheduling. [facility] message sent to patient with all pre op instructions. Patient case reviewed. All nutrition appointments completed, psychology clearance obtained, surgeon visit and procedure type verified, and all testing completed by bariatrician. 01/02/2024 Medical optimization letter completed 11/07/2023 Psychology clearance letter completed Creatinine level 0.73 Medication List reviewed Sleep apnea requiring treatment? Yes, Patient tolerating C-PAP and advised to bring C-PAP mask and tubing DOS. If you have been diagnosed with moderate/severe sleep apnea you must wear CPAP/BIPAP a minimum of 4 hours nightly 2 weeks before surgery,. It is very important to treat JANA pre op as well as continuing to use the CPAP post operatively- Do not stop using the machine without prior testing. - Melba video assigned. - Introduced Bariatric firepot operator and tender Yes Yaw Alas [facility] 04-20-2024 History of Presen t illness Narrative Images from the original note were not included. Assessment ESTABLISHED PATIENT INTERVAL HPI: Angelique Wynne is a 54 year old female who was initially seen on 10/21/2023 in the office for evaluation for Bariatric surgery. She has a history of Anterior proctosigmoidectomy, low colorectal anastomosis (2007). Dr Ansari discussed in detail the surgical options including sleeve gastrectomy and Myrtle-en-Y gastric bypass. The patient was a candidate for a gastric bypass and the risks and benefits of the surgery were discussed. Since then, the patient was admitted after she went to the ED in March for small bowel obstruction and underwent a diagnostic laparoscopy with lysis of adhesions. She was discharged home and recovered well, however, she had another painful episode shortly after with negative imaging in the ED. She is here today to discuss the feasibility of the scheduled RYGB given her last surgery for SBO. She has no active concerns. No longer on blood thinners. Denies any abdominal surgeries other than the proctosigmoidectomy. PAST MEDICAL HISTORY Diagnosis Date Acute gastritis [...] 2005 needle biopsy of the left breast 03/20/2024 Operative Report PHYSICAL EXAMINATION: BP 134/79 Pulse 90 Temp 36.4 C (97.5 F) (Temporal) Ht 149.9 cm (4' 11.02) Wt 84 kg (185 lb 3 oz) LMP 09/19/2017 SpO2 96% BMI 37.38 kg/m General Appearance: Well appearing, alert, in no acute distress, well-hydrated, well nourished.. Skin: Skin color, texture, turgor normal, no suspicious rashes or lesions. Abdomen: Normal abdominal exam, Abdomen soft, non-tender. Bowel sounds normal. No masses, organomegaly. IMPRESSION: Morbid obesity PLAN: Patient recently underwent a diagnostic lap and extensive lysis of adhesions. I have discussed this with her general surgeon who noted significant adhesions of the small intestine. Adhesions were cleared to the point of bowel obstruction but she still has a lot of adhesions. I have discussed this with Tana. We have decided to proceed sleeve. If she does need conversion to open, we will perform an open gastric bypass. She does not have any premorbid acid reflux and is not on any medications for the same. Proceed with a sleeve gastrectomy, possible open gastric bypass Risk-benefit and alternatives of surgery discussed I spent a total of 20 minutes on the date of the service which included preparing to see the patient, [id number] patient care, completing clinical documentation, obtaining and/or reviewing separately obtained history, performing a medically appropriate examination, counseling and educating the patient/family/caregiver, ordering medications, tests, or procedures, communicating with other HCPs (not separately reported), independently interpreting results (not separately reported), communicating results to the patient/family/caregiver, and care coordination (not separately reported). Broderick Ansari MD documented in this encounter [facility] 04-20-2024 Note HNO ID: [id number] Author: BRODERICK ANSARI MD Service: ? Author Type: Physician Type: Progress Notes Filed: 04/20/2024 14:54 Note Text: Assessment ESTABLISHED PATIENT INTERVAL HPI: Angelique Wynne is a 54 year old female who was initially seen on 10/21/2023 in the office for evaluation for Bariatric surgery. She has a history of Anterior proctosigmoidectomy, low colorectal anastomosis (2007). Dr Ansari discussed in detail the surgical options including sleeve gastrectomy and Myrtle-en-Y gastric bypass. The patient was a candidate for a gastric bypass and the risks and benefits of the surgery were discussed. Since then, the patient was admitted after she went to the ED in March for small bowel obstruction and underwent a diagnostic laparoscopy with lysis of adhesions. She was discharged home and recovered well, however, she had another painful episode shortly after with negative imaging in the ED. She is here today to discuss the feasibility of the scheduled RYGB given her last surgery for SBO. She has no active concerns. No longer on blood thinners. Denies any abdominal surgeries other than the proctosigmoidectomy. PAST MEDICAL HISTORY Diagnosis Date Acute gastritis [...] WHEN PFRMD 01/06/2020 Colonoscopy COLONOSCOPY W/BIOPSY SINGLE/MULTIPLE 4/2/08 EGD TRANSORAL BIOPSY SINGLE/MULTIPLE 09/02/07 EGD TRANSORAL BIOPSY SINGLE/MULTIPLE INSJ TUNNELED CTR VAD W/SUBQ PORT AGE 5 YR/> 11/20/2007 Left Subclavian REMOVED PAST SURGICAL HISTORY OF 2005 needle biopsy of the left breast 03/20/2024 Operative Report PHYSICAL EXAMINATION: BP 134/79 Pulse 90 Temp 36.4 ?C (97.5 ?F) (Temporal) Ht 149.9 cm (4' 11.02) Wt 84 kg (185 lb 3 oz) LMP 09/19/2017 SpO2 96% BMI 37.38 kg/m? General Appearance: Well appearing, alert, in no acute distress, well-hydrated, well nourished.. Skin: Skin color, texture, turgor normal, no suspicious rashes or lesions. Abdomen: Normal abdominal exam, Abdomen soft, non-tender. Bowel sounds normal. No masses, organomegaly. IMPRESSION: Morbid obesity PLAN: Patient recently underwent a diagnostic lap and extensive lysis of adhesions. I have discussed this with her general surgeon who noted significant adhesions of the small intestine. Adhesions were cleared to the point of bowel obstruction but she still has a lot of adhesions. I have discussed this with Tana. We have decided to proceed sleeve. If she does need conversion to open, we will perform an open gastric bypass. She does not have any premorbid acid reflux and is not on any medications for the same. Proceed with a sleeve gastrectomy, possible open gastric bypass Risk-benefit and alternatives of surgery discussed I spent a total of 20 minutes on the date of the service which included preparing to see the patient, [id number] patient care, completing clinical documentation, obtaining and/or reviewing separately obtained history, performing a medically appropriate examination, counseling and educating the patient/family/caregiver, ordering medications, tests, or procedures, communicating with other HCPs (not separately reported), independently interpreting results (not separately reported), communicating results to the patient/family/caregiver, and care coordination (not separately reported). Broderick Ansari MD [facility] 04-20-2024 Nurse Note What is the reason for your visit today? BMI discuss feasibility for LRYGB 03/20/24 s/p extensive crescencio Who is your referring physician? Are you having poor oral intake? NO Have you had unintentional weight loss of 15 lbs/7 Kg in the last 3-6 months? NO Bowels: regular Wound: Temperature: No Drains: No [facility] 04-20-2024 Nurse Note What is the reason for your visit today? BMI discuss feasibility for LRYGB 03/20/24 s/p extensive crescencio Who is your referring physician? Are you having poor oral intake? NO Have you had unintentional weight loss of 15 lbs/7 Kg in the last 3-6 months? NO Bowels: regular Wound: Temperature: No Drains: No documented in this encounter [facility] 03-23-2024 Note HNO ID: [id number] Author: MARIA TERESA VELASQUEZ LPN Service: ? Author Type: LICENSED NURSE Type: Progress Notes Filed: 03/23/2024 15:59 Note Text: TRANSITION CARE MANAGEMENT (TCM) INITIAL CONTACT Housekeeping Attendant Outreach Provider Action/FYI: Attempt #1 left message Patient returned call completed below and scheduled appt Initial contact with patient post discharge, spoke to patient. Patient identified by name and . TRANSITION CARE MANAGEMENT INITIAL OUTREACH DOCUMENTATION: No data to display SUMMARY: -Pt discharged from [facility] on 03/22/24. S/P laparoscopy with lysis of adhesions -Admitted for: Small Bowel Obstruction, partial vs complete Do you have a hospital follow up appointment with your PCP? Appointment on 03/24/2024 with Stephanie Darden NP . MEDICATIONS: Many patients have questions or concerns about their medications once they are home. Were you prescribed any new medications? Yes If yes, what are those medications? Oxycodone 5 mg She did not fill that rx, she is taking tylenol as needed Were you told to hold any medications? No Were any of your medications discontinued? No Do you have any questions about getting or taking your medications? No Your discharge instructions/After visit Summary (AVS) are important in guiding you through the recovery process. Is there anything I might help you understand? No Do you have all the necessary equipment and supplies at home? No, Medical records from recent hospitalization: Care Everywhere [facility] 03-23-2024 History of Presen t illness Narrative Images from the original note were not included. TRANSITION CARE MANAGEMENT (TCM) INITIAL CONTACT Housekeeping Attendant Outreach Provider Action/FYI: Attempt #1 left message Patient returned call completed below and scheduled appt Initial contact with patient post discharge, spoke to patient. Patient identified by name and . TRANSITION CARE MANAGEMENT INITIAL OUTREACH DOCUMENTATION: No data to display SUMMARY: -Pt discharged from [facility] on 03/22/24. S/P laparoscopy with lysis of adhesions -Admitted for: Small Bowel Obstruction, partial vs complete Do you have a hospital follow up appointment with your PCP? Appointment on 03/24/2024 with Stephanie Darden NP . MEDICATIONS: Many patients have questions or concerns about their medications once they are home. Were you prescribed any new medications? Yes If yes, what are those medications? Oxycodone 5 mg She did not fill that rx, she is taking tylenol as needed Were you told to hold any medications? No Were any of your medications discontinued? No Do you have any questions about getting or taking your medications? No Your discharge instructions/After visit Summary (AVS) are important in guiding you through the recovery process. Is there anything I might help you understand? No Do you have all the necessary equipment and supplies at home? No, Medical records from recent hospitalization: Care Everywhere documented in this encounter [facility] 03-23-2024 Note HNO ID: [id number] Author: ?, ?, ? Service: ? Author Type: ? Type: Progress Notes Filed: 03/23/2024 13:21 Note Text: [facility] 03-23-2024 History of Presen t illness Narrative Images from the original note were not included. documented in this encounter [facility] 03-23-2024 Note Patient Outreach (FA MPWS) ANGELIQUE WYNNE ([id number]) 1970 F Date Time Provider Department 03/23/24 LUIS STALEY During your visit today, we recorded the following information about you: Maria Teresa Velasquez LPN 03/23/2024 3:59 PM Signed TRANSITION CARE MANAGEMENT (TCM) INITIAL CONTACT Housekeeping Attendant Outreach Provider Action/I: Attempt #1 left message Patient returned call completed below and scheduled appt Initial contact with patient post discharge, spoke to patient. Patient identified by name and . TRANSITION CARE MANAGEMENT INITIAL OUTREACH DOCUMENTATION: No data to display SUMMARY: -Pt discharged from [facility] on 03/22/24. S/P laparoscopy with lysis of adhesions -Admitted for: Small Bowel Obstruction, partial vs complete Do you have a hospital follow up appointment with your PCP? Appointment on 03/24/2024 with Stephanie Darden NP . MEDICATIONS: Many patients have questions or concerns about their medications once they are home. Were you prescribed any new medications? Yes If yes, what are those medications? Oxycodone 5 mg She did not fill that rx, she is taking tylenol as needed Were you told to hold any medications? No Were any of your medications discontinued? No Do you have any questions about getting or taking your medications? No Your discharge instructions/After visit Summary (AVS) are important in guiding you through the recovery process. Is there anything I might help you understand? No Do you have all the necessary equipment and supplies at home? No, Medical records from recent hospitalization: Care Everywhere Allergies As of Date: 03/23/2024 Noted Allergy Reaction OXALIPLATIN 02/22/2008 10 - Anaphylaxis Comments: Went to [facility] ER 02/08/08 Date Reviewed: 12/08/2023 Reviewed by: Petra Adams MA - Fully Assessed Reason for Visit: Transition Of Care [0771] Cmt: [facility] DISCHARGE 03/22 BOWEL OBSTRUCTION S Prescriptions as of 03/23/2024 - atorvastatin (LIPITOR) 40 mg tablet Take 1 tablet by mouth daily at bedtime. For cholesterol. - lisinopril (ZESTRIL) 20 mg tablet Take 1 tablet by mouth once daily. - CPAP/BIPAP/OTHER Type .CPAPSettings into a note to see current settings/supplies/DME information. - vitamin B complex (B COMPLEX ORAL) Take by mouth once daily. - semaglutide (OZEMPIC) 0.25 mg or 0.5 mg (2 mg/3 mL) pen Inject 0.5 mg subcutaneously one time a week. - Lancets lancets Use with blood glucose test once daily. Insulin Dep? Yes - blood sugar diagnostic test strip Use with blood glucose test once daily, Insulin Dep? No - Blood-Glucose Meter Test One time a day. - Blood Glucose Control, Normal soln Use as directed Problem List As Of Date 03/23/2024 Noted Resolved MIXED HYPERLIPIDEMIA [E78.2] 02/28/2006 Essential [...] [Z85.048] 06/28/2014 Obesity, Class II, BMI 35-39.9 [E66.812] 12/13/2022 Encounter Status:Closed by MARIA TERESA VELASQUEZ on 03/23/24 [facility] 03-22-2024 Note [facility] Medical Records Department [address] [place] [address] Discharge Summary 03/22/24 1353 MR#: [id number] Acct: [id number] Name: ANGELIQUE WYNNE Rep #: [id number] : 1970 54 From: Merle Moore DO PCP: Dr. Luis Staley MD Status:ADM IN Location: [place] [address] Providers Date of Admission: 03/20/24 Date of Discharge: 03/22/24 Primary Care Physician: Dr. Luis Staley MD Consultations 03/20/24 02:01 Consult: General Surgery Routine Consulting Provider: Connie Hendrix Reason for Consult: Bowel obstruction EMERGENT Consult: No MD Notified: Yes Date Notified: 03/20/24 Time Notified: 01:19 Method of Notification: ED Physician Initiated Reason For Visit: BOWEL OBSTRUCTION Diagnosis Discharge Diagnosis (1) S/P laparoscopy with lysis of adhesions: Status: Acute Code(s): Z98.890 - Other specified postprocedural states (2) Small bowel obstruction: Status: Acute Code(s): K56.609 - Unspecified intestinal obstruction, unspecified as to partial versus complete obstruction Medications at Discharge Home Medications lisinopril 10 mg tablet 10 mg PO DAILY #30 tabs 04/29/17 atorvastatin 40 mg tablet 40 mg PO QHS cholesterol 03/19/24 semaglutide 0.25 mg or 0.5 mg (2 mg/3 mL) subcutaneous pen injector (Ozempic) 0.5 mg subcut QWEEK weight loss 03/19/24 oxycodone 5 mg capsule 5 mg PO Q6H PRN pain 3 days #10 caps 03/22/24 Hospital Course Operations - (Laparoscopic extensive lysis of adhesion release of small bowel obstruction) Procedures - (CT abdomen pelvis/KUB) Summary of Care Provided Minutes Spent on Discharge: 38 Hospital Course: Patient is a 54-year-old female who presents emergency department was commenced on 03/20/2024 with a chief complaint abdominal pain, nausea, vomiting, and decreased bowel movements. Symptoms started about 2 days prior to presentation the emergency department and initially consisted of supraumbilical abdominal discomfort and eventually moved to the periumbilical area where it remained. She had ongoing nausea and emesis with bilious vomitus. Denied any coffee-ground emesis. Last bowel movement was a day on presentation however appeared to be very small. She does have a history of bowel obstruction with open abdominal surgery for colorectal cancer about 16 years ago. Vital signs on presentation were overtly unremarkable. CBC showed an elevated white count at 19.0. Hemoglobin was stable at 14.9. Glucose was elevated at 276 and patient is a known diabetic. Her UA was unremarkable. CMP was otherwise unremarkable. CT of the abdomen pelvis showed proximal small bowel obstruction located within the left side of the abdomen suggestive of the closed-loop obstruction secondary to adhesions or internal hernia. She is given IV fluids antiemetics and pain medication the emergency department and the case was discussed with general surgery. Symptoms persisted through the night and patient was taken the OR for diagnostic laparoscopy with extensive [place] and release of small bowel obstruction. This was done on 03/20/2024. Postoperatively she has slowly improved. Patient had flatus postoperatively and clear liquid diet was started on 03/21/2024. She tolerated this diet well and she was advance to transitional diet on 03/22/2024 of which she tolerated well and was only having periumbilical pain. She had no worsening abdominal pain and has good bowel sounds at the time of discharge. Given her improvement in bowel function she was discharged home in stable condition on 03/22/2024. She was given as needed pain medication by general surgery and she needs to follow-up with Dr. Hendrix in 2 weeks MS that she follow-up with her primary care physician within the next month as able. Discharge diagnoses: Small bowel obstruction status post laparoscopic lysis of adhesions and release of small bowel Leukocytosis-resolved DM-2 Essential hypertension Hyperlipidemia Obesity History of colorectal cancer Physical Exam Const alert, oriented x3, no apparent distress, no limitations, healthy appearing and well nourished; Negative for average body habitus Constitutional Narrative: Middle-aged, white female, sitting up in a chair at the bedside, family at bedside, patient appears well, nontoxic appearing General Appearance: cooperative, comfortable, well kempt and well developed Orientation / Consciousness: awake, oriented to person, oriented to place and oriented to time Exam Limitations: no limitations Nutritional Appearance: obese HEENT normocephalic, head/scalp atraumatic, hearing grossly normal bilaterally and moist oral mucous membranes HEENT Narrative: Mallampati 2, no thrush, dentition is good Eyes PERRL, EOMs intact bilaterally and conjunctivae normal Eyes Narrative: No scleral icterus Neck no lymphadenopathy and supple Neck Narrative: Tra (more content not included)... [facility] 03-17-2024 Miscellaneous Notes Phoned patient to discuss scheduling surgery. Patient states she has received insurance approval from her insurance company and from the [employer]. Advised patient that Dr. Ansari's nurse will be back in the office on Friday at which point I will let her know that she is ready for scheduling. Patient very pleasant and understands the plan to be scheduled next week. Keon Anderson RN BSN Boat Tender for Dr. García/ Covering for Dr. Ansari Patient calling to schedule bariatric surgery. She received the approval and was told to call if not given surgery date within certain time frame. CB# [phone] documented in this encounter [facility] 03-17-2024 Telephone encounter Note Phoned patient to discuss scheduling surgery. Patient states she has received insurance approval from her insurance company and from the [employer]. Advised patient that Dr. Ansari's nurse will be back in the office on Friday at which point I will let her know that she is ready for scheduling. Patient very pleasant and understands the plan to be scheduled next week. Keon Anderson RN BSN Boat Tender for Dr. García/ Covering for Dr. Ansari [facility] 03-17-2024 Telephone encounter Note Patient calling to schedule bariatric surgery. She received the approval and was told to call if not given surgery date within certain time frame. # [phone] [facility] 02-04-2024 Telephone encounter Note Prescription Refill Information [...] Nogueira LPN February 04, 2024 11:10 AM [facility] 02-04-2024 Miscellaneous Notes Prescription Refill Information The [...] 2024 11:10 AM documented in this encounter [facility] 01-08-2024 Note HNO ID: [id number] Author: ?, ?, ? Service: ? Author Type: ? Type: Progress Notes Filed: 01/08/2024 16:00 Note Text: 02/15/2024 is a pseudo date for insurance approval purposes only. This is not an actual procedure date. Yaw Alas [facility] 01-08-2024 History of Presen t illness Narrative 02/15/2024 is a pseudo date for insurance approval purposes only. This is not an actual procedure date. Yaw Alas documented in this encounter [facility] 12-08-2023 Note HNO ID: [id number] Author: JESUS ORTIZ MD Service: ? Author Type: Physician Type: Progress Notes Filed: 12/08/2023 10:05 Note Text: [facility] New Patient Evaluation PATIENT NAME: Angelique Wynne DATE OF SERVICE: December 08, 2023 CONSULTING PROVIDER: Rachel Mcmillan [address] [facility] [place] [address] REASON FOR CONSULT: Rachel Mcmillan sends the [...] difference.) Physical T-Score 50.8 Mental T-Score 53.3 [place] Sleepiness Scale Sitting and Reading? no chance [...] Body Mass In (more content not included)... [facility] 12-08-2023 History of Presen t illness Narrative Images from the original note were not included. [facility] New Patient Evaluation PATIENT NAME: Angelique Wynne DATE OF SERVICE: December 08, 2023 CONSULTING PROVIDER: Rachel Mcmillan [address] [facility] [address] REASON FOR CONSULT: Rachel Mcmillan sends the [...] difference.) Physical T-Score 50.8 Mental T-Score 53.3 [place] Sleepiness Scale Sitting and Reading? no chance [...] will have a prescription sent to a [employer] medical [employer]) company - [phone] who will be calling you in the next 1-2 weeks or so. Please call them directly or us if you do not hear from them in this time frame. - You should be eligible for new supplies approximately every 3-6 months, depending on your insurance coverage. - If your mask doesn't fit well, call the [employer] company before 30 days are up to [...] which included preparing to see the patient, [id number] patient care, completing clinical documentation, performing a medically appropriate examination, counseling and educating the patient/family/caregiver, ordering medications, tests, or procedures, communicating results to the patient/family/caregiver, and care coordination (not separately reported). Jesus Ortiz MD documented in this encounter [facility] 12-05-2023 Note HNO ID: [id number] Author: LUIS STALEY MD Service: ? Author [...] Abs Lymph 1.00 - 4.00 k/uL 2.51 Berrien% % 5.2 Abs Berrien <0.87 k/uL 0.45 Eosin% % 2.9 Abs [...] ALLERGIES Allergen Reactions Oxaliplatin Anaphylaxis Went to [facility] ER 02/08/08 PAST MEDICAL HISTORY [...] past medical history, (more content not included)... [facility] 12-05-2023 History of Presen t illness Narrative [...] Abs Lymph 1.00 - 4.00 k/uL 2.51 Berrien% % 5.2 Abs Berrien <0.87 k/uL 0.45 Eosin% % 2.9 Abs [...] ALLERGIES Allergen Reactions Oxaliplatin Anaphylaxis Went to [facility] ER 02/08/08 PAST MEDICAL HISTORY [...] WHEN PFRMD 01/06/2020 Colonoscopy COLONOSCOPY W/BIOPSY SINGLE/MULTIPLE 4/2/08 EGD TRANSORAL BIOPSY SINGLE/MULTIPLE 09/02/07 EGD TRANSORAL [...] Luis Staley MD documented in this encounter [facility] 12-02-2023 Telephone encounter Note Patient informed and verbalized understanding. Luz Marina Leung MA [facility] 12-02-2023 Miscellaneous Notes Patient informed and verbalized understanding. Luz Marina Leung MA Labs are all ok. Only thing slightly abnormal is a mildly increased alk phos. A blood enzyme that can occur from a number of sources and may be a benign finding in many people. I would simply repeat it in a few weeks and break it down. documented in this encounter [facility] 12-02-2023 Telephone encounter Note Labs are all ok. Only thing slightly abnormal is a mildly increased alk phos. A blood enzyme that can occur from a number of sources and may be a benign finding in many people. I would simply repeat it in a few weeks and break it down. [facility] 11-28-2023 Instructions Rolf Patino, RD - 11/28/2023 9:13 AM EDT Please call [phone], option 5. Leave a message for the navigation team when you are finished with all clearances (nutrition, psychology, medical, surgeon) 1.Starting ~3 weeks after surgery take daily bariatric vitamins Some examples of vitamins/mineral companies: - Bariatric Fusion: 4 Complete Multivitamin chewables per day OR 1 Multivitamin capsule and 4873-5041 mg calcium citrate per day OR 2 Multivitamin soft chews per day + 3 calcium citrate soft chews + 1 iron soft chew per day www.bariatricfusion.com - ProcSidekick Games Health: 1 Bariatric Multivitamin w/ iron (capsule or chewable) and 1074-6818 mg calcium citrate per day www.BestSecret.com - Bariatric Choice: 1 Once Daily Bariatric Multivitamin capsule and 6032-3281 mg calcium citrate per day OR 4 All-in-One Bariatric Multivitamin chewables per day www.Applied Proteomics.Remixation, Inc. - Bariatric Advantage: 1 Ultra Solo multivitamin w/ iron (chewable or capsule) OR 2 chewable Advanced Multi EA w/ iron and 9043-8462 mg calcium citrate per day OR 2 Multi Chewy Bites and 9723-2392 mg calcium citrate and 45-60 mg iron per day www.bariatricadSaaSAssurance.Remixation, Inc. - Bariatric Pal: 1 Multivitamin One (chewable or capsule) and 1632-5305 mg calcium citrate per day OR 4 All-in-One Multivitamin chewables per day www.DraftKingsbariatricpal.Remixation, Inc./colle ctions/bariatric-vitamins - Barilife: 1 Just One Bariatric Multivitamin w/ iron (chewable or capsule) and 0385-5746 mg calcium citrate per day www.Mozilla.Remixation, Inc. - Barimelts: 2 Multivitamin w/ iron tablets and 9724-1892 mg calcium citrate per day www.barimelts.Remixation, Inc. 2. Protein goal: 68 grams protein/day 3. [...] Advanced Nutrition OR 5.5 packets Light Start Fountain Breakfast Essentials mixed with 1% or skim [...] 2 weeks pre-op documented in this encounter [facility] 11-28-2023 History of Presen t illness Narrative AMBULATORY PATIENT EDUCATION NOTE- Shared [employer] I have communicated my name and active licensure. The patient's identity and physical location were verified at the time of this visit. Either the patient or their legal sales account representative has been informed of the risks [...] Your Guide to Surgery by next session [email or web address]? la=en 2. Do not skip meals. 3. Use protein shake 1x per day to replace any skipped meals or for breakfast -Start to try the approved pre-op protein shake options: Slim Fast Advanced Nutrition OR Light Start Fountain Breakfast Essentials mixed with 1% or skim [...] per day OR 1 Multivitamin capsule and 8889-1668 mg calcium citrate per day OR 2 Multivitamin soft chews per day + 3 calcium citrate soft chews + 1 iron soft chew per day www.bariatricfusion.Remixation, Inc. - Procare Health: 1 Bariatric Multivitamin w/ iron (capsule or chewable) and 9165-9857 mg calcium citrate per day www.CrowdEngineering.Remixation, Inc. - Bariatric Choice: 1 Once Daily Bariatric Multivitamin capsule and 0716-2332 mg calcium citrate per day OR 4 All-in-One Bariatric Multivitamin chewables per day www.bariatricchoice.Remixation, Inc. - Bariatric Advantage: 1 Ultra Solo multivitamin w/ iron (chewable or capsule) OR 2 chewable Advanced Multi EA w/ iron and 2950-1943 mg calcium citrate per day OR 2 Multi Chewy Bites and 5876-3216 mg calcium citrate and 45-60 mg iron per day www.bariatricadvantage.Remixation, Inc. - Bariatric Pal: 1 Multivitamin One (chewable or capsule) and 8255-0918 mg calcium citrate per day OR 4 All-in-One Multivitamin chewables per day www.simplifyMD.bariatricpal.com/colle ctions/bariatric-vitamins - Barilife: 1 Just One Bariatric Multivitamin w/ iron (chewable or capsule) and 5524-7518 mg calcium citrate per day www.Gibi Technologies - Barimelts: 2 Multivitamin w/ iron tablets and 6092-5873 mg calcium citrate per day www.White Plume Technologies.Remixation, Inc. Pre-op goal weight: maintain current weight Protein [...] intake at meals and snacks Please call [phone], option 5. Leave a message for the navigation team when you are finished with all clearances (nutrition, psychology, medical, surgeon) 1.Starting ~3 weeks after surgery take daily bariatric vitamins Some examples of vitamins/mineral companies: - Bariatric Fusion: 4 Complete Multivitamin chewables per day OR 1 Multivitamin capsule and 5819-3577 mg calcium citrate per day OR 2 Multivitamin soft chews per day + 3 calcium citrate soft chews + 1 iron soft chew per day www.bariatricfusion.Remixation, Inc. - SureWaves Health: 1 Bariatric Multivitamin w/ iron (capsule or chewable) and 5306-0342 mg calcium citrate per day www.BestSecret.com - Bariatric Choice: 1 Once Daily Bariatric Multivitamin capsule and 3362-0254 mg calcium citrate per day OR 4 All-in-One Bariatric Multivitamin chewables per day www.bariatricchoBio-Key International.Remixation, Inc. - Bariatric Advantage: 1 Ultra Solo multivitamin w/ iron (chewable or capsule) OR 2 chewable Advanced Multi EA w/ iron and 1243-8386 mg calcium citrate per day OR 2 Multi Chewy Bites and 9109-8415 mg calcium citrate and 45-60 mg iron per day www.bariatricadEyeScienceage.Remixation, Inc. - Bariatric Pal: 1 Multivitamin One (chewable or capsule) and 4002-0633 mg calcium citrate per day OR 4 All-in-One Multivitamin chewables per day www.simplifyMD.bariatricpal.Remixation, Inc./colle ctions/bariatric-vitamins - Barilife: 1 Just One Bariatric Multivitamin w/ iron (chewable or capsule) and 4379-7628 mg calcium citrate per day www.Mozilla.Remixation, Inc. - Barimelts: 2 Multivitamin w/ iron tablets and 7494-6303 mg calcium citrate per day www.barimelts.Remixation, Inc. 2. Protein goal: 68 grams protein/day 3. [...] Advanced Nutrition OR 5.5 packets Light Start Fountain Breakfast Essentials mixed with 1% or skim [...] Rolf Patino RD documented in this encounter [facility] 11-28-2023 Note HNO ID: [id number] Author: ROLF PATINO RD Service: ? Author Type: Registered Dietitian Type: Progress Notes Filed: 11/28/2023 09:13 Note Text: AMBULATORY PATIENT EDUCATION NOTE- Shared [employer] I have communicated my name and active licensure. The patient's identity and physical location were verified at the time of this visit. Either the patient or their legal sales account representative has been informed of the risks [...] Your Guide to Surgery by next session [email or web address] /[email or web address]/files/org/[email or web address]/[email or web address]?la=en 2. Do not skip meals. 3. Use protein shake 1x per day to replace any skipped meals or for breakfast -Start to try the approved pre-op protein shake options: Slim Fast Advanced Nutrition OR Light Start Fountain Breakfast Essentials mixed with 1% or skim [...] per day OR 1 Multivitamin capsule and 8167-7270 mg calcium citrate per day OR 2 Multivitamin soft chews per day + 3 calcium citrate soft chews + 1 iron soft chew per day www.bariatricfusion.com - Procare Health: 1 Bariatric Multivitamin w/ iron (capsule or chewable) and 3946-0221 mg calcium citrate per day www.BestSecret.com - Bariatric Choice: 1 Once Daily Bariatric Multivitamin capsule and 6736-2928 mg calcium citrate per day OR 4 All-in-One Bariatric Multivitamin chewables per day www.bariatricchoice.Remixation, Inc. - Bariatric Advantage: 1 Ultra Solo multivitamin w/ iron (chewable or capsule) OR 2 chewable Advanced Multi EA w/ iron and 5250-0064 mg calcium citrate per day OR 2 Multi Chewy Bites and 7132-5905 mg calcium citrate and 45-60 mg iron per day www.bariatricadEyeScienceage.com - Bariatric Pal: 1 Multivitamin One (chewable or capsule) and 7992-7109 mg calcium citrate per day OR 4 All-in-One Multivitamin chewables per day www.Black Pearl Studio/colle ctions/bariatric-vitamins - Barilife: 1 Just One Bariatric Multivitamin w/ iron (chewable or capsule) and 5445-7623 mg calcium citrate per day www.bariProfitBricks.Remixation, Inc. - Barimelts: 2 Multivitamin w/ iron tablets and 1515-0872 mg calcium citrate per day www.barimeltsBASE Inc Pre-op goal weight: maintain current weight Protein [...] appointment. Patient participate (more content not included)... [facility] 11-18-2023 Telephone encounter Note ordered [facility] 11-18-2023 Miscellaneous Notes ordered Please review pt message. Appears that all labs have been completed other than a CEA BLD test. Please advise if needing any other labs. Alyssia Godinez MA documented in this encounter [facility] 11-18-2023 Telephone encounter Note Please review pt message. Appears that all labs have been completed other than a CEA BLD test. Please advise if needing any other labs. Alyssia Godinez MA [facility] 11-13-2023 Nurse Note Pt. arrived to phase 2 resting on left side. SR up x 2, call light in reach. Naila Navarro RN [facility] 11-13-2023 Nurse Note Pt. arrived to phase 2 resting on left side. SR up x 2, call light in reach. Naila Navarro RN documented in this encounter [facility] 11-13-2023 Note Formatting of this n ote might be different from the original. The patient received a copy of EGD discharge instructions that contain information for how to contact the physician who performed the procedure and when to seek medical care. [facility] 11-13-2023 Miscellaneous Notes The patient received a copy of EGD discharge instructions that contain information for how to contact the physician who performed the procedure and when to seek medical care. documented in this encounter [facility] 11-13-2023 History and physical note PATIENT NAME: [...] her job soon. [facility] [...] ALLERGIES Allergen Reactions Oxaliplatin Anaphylaxis Went to [facility] ER 02/08/08 FAMILY HISTORY: FAMILY [...] (98 F) (Temporal) Ht 149.9 cm (4' 11.02) Wt 81.6 kg (180 lb) LMP 09/19/2017 [...] masses, organomegaly. Large midline laparotomy scar from 2007 Extremities: No deformities, edema, skin discoloration, clubbing [...] goal weight prior to liquid fast: Per commanding officer homicide squad Surgically Cleared with completion of the below: [...] DATE: November 13, 2023 TIME: 8:43 AM [facility] 11-13-2023 History and physical note PATIENT NAME: [...] her job soon. She has been in [facility] for her DM for few years and [...] ALLERGIES Allergen Reactions Oxaliplatin Anaphylaxis Went to [facility] ER 02/08/08 FAMILY HISTORY: FAMILY [...] (98 F) (Temporal) Ht 149.9 cm (4' 11.02) Wt 81.6 kg (180 lb) LMP 09/19/2017 [...] masses, organomegaly. Large midline laparotomy scar from 2007 Extremities: No deformities, edema, skin discoloration, clubbing [...] goal weight prior to liquid fast: Per commanding officer homicide squad Surgically Cleared with completion of the below: [...] TIME: 8:43 AM documented in this encounter [facility] 11-10-2023 Note HNO ID: [id number] Author: ?, ?, ? Service: ? Author Type: ? Type: Progress Notes Filed: 11/10/2023 12:39 Note Text: Sleep Study Check-In Documentation Date: November 10, 2023 Name: Angelique Vega Ricci Comments: HST was returned in working order without all sleep questionnaires Patient was contacted and sleep questionnaires were completed telephonically Betsy Diez [facility] 11-10-2023 History of Presen t illness Narrative Sleep Study Check-In Documentation Date: November 10, 2023 Name: Angelique Silvia Wynne Comments: HST was returned in working order without all sleep questionnaires Patient was contacted and sleep questionnaires were completed telephonically Betsy Diez Nomad # [id number] , date shipped out 11-05-23 [employer] only Tracking mailout: [id number] Tracking return: [id number] Rescheduled 11/05. Sleep Study Check-In Documentation Date: October 21, 2023 Name: Angelique Wynne Comments: HST was returned in work order. Study failed due to the belts,Pt sent a MC to [facility]. Romi Clark Nomad# [id number] +gps Date shipped out 10/14 [employer] - [employer] RETURN Tracking Mailout: [id number] Tracking Return: [id number] October 14, 2023 Standing PSG Orders signed in the last 90 days None Future PSG Orders signed in the last 90 days Ordered Auth. provider HOME SLEEP APNEA TEST (HSAT) [[id number]] 10/02/23 Rachel Mcmillan APRN.[employer]GET[employer] WORK[employer] Assoc. diagnoses: Class 2 severe obesity with [...] No CONSULT TO SLEEP MEDICINE - ADULT [[id number]] 10/02/23 Rachel Mcmillan APRN.[employer]GETABLE WORKER Assoc. diagnoses: Class 2 severe obesity with [...] (HSAT) Special instructions: None-follow laboratory protocol Katiana Butt Tech - Sleep Medicine Staff Note: I have read the above protocol, edited as needed, and agree to the plan. Vero Segundo III, PhD 8:05 PM, 10/14/2023 October 14, 2023 An order has been received for Home Sleep Apnea Test (HSAT) from Rachel Gracia, BLEACH CHLORINATOR.TIGRE , michael Pyle. [facility] Staff. Visit prep complete. Comments :No The sleep study is scheduled for 10/18. Insurance: Payor: MMO / Plan: MMO SUPERMED PPO / Product Type: PPO / Payer/Plan Subscr Sex Relation Sub. Ins. ID Effective Group Num 1. MMO - MMO SUP* ANGELIQUE WYNNE 1970 Female Self [id number] 11/30/18 [id number] [address] Anali Polanco documented in this encounter [facility] 11-07-2023 Note HNO ID: [id number] Author: RACHEL ESCALANTE PSYD Service: ? Author Type: Psychologist Type: Progress Notes Filed: 11/07/2023 12:38 Note Text: [facility] Bariatric Behavioral Services Progress Note Patient Name: Angelique Wynne 11/07/2023 Cost Center: [facility] Billing codes: Rory BMI Surgical Pathway Visit type: Psychology Visit CPT Code: 91066 Brief Emotional/Behavioral Assessment with scoring/documentation [id number] Virtual Psychotherapy 38-52 minutes 11:00AM to 11:40AM The following visit was completed virtually and informed consent obtained via [facility] (see consent dated 09/30/23); the behavioral health [...] visit. Either the patient or their legal sales account representative has been informed of the risks [...] of Virtual Visit: [place] [address] [place] [address] Emergency Contact: Chuck Wynne (Spouse) at [phone] Of note, Pt briefly lost connection to [...] had MBS Patient follows up with this fiction and nonfiction prose writer today to discuss emotional preparation for [...] 1 beer since last visit with this fiction and nonfiction prose writer (her first drink in 6 months) and demonstrated appropriate understanding of post-op risks. She continues to deny recent tobacco or illicit drug use. Interventions: 1). Review of behavioral progress 2). Education on RYGB risks and behavioral changes 3). Relapse prevention 4). Discussion of monitoring progress post-op and long-term weight manag (more content not included)... [facility] 11-06-2023 Instructions Rolf Patino, PABLO - 11/06/2023 8:23 AM EDT 1. Read Nutritional Guidelines Section of Your Guide to Surgery by next session [email or web address] /[email or web address]/[email or web address]/[email or web address]? la=en 2. Do not skip meals. 3. Use protein shake 1x per day to replace any skipped meals or for breakfast -Start to try the approved pre-op protein shake options: Slim Fast Advanced Nutrition OR Light Start Fountain Breakfast Essentials mixed with 1% or skim [...] per day OR 1 Multivitamin capsule and 9855-1421 mg calcium citrate per day OR 2 Multivitamin soft chews per day + 3 calcium citrate soft chews + 1 iron soft chew per day www.bariatricfusion.com - AgBiome: 1 Bariatric Multivitamin w/ iron (capsule or chewable) and 5906-6368 mg calcium citrate per day www.DropifinoBardakovka.Remixation, Inc. - Bariatric Choice: 1 Once Daily Bariatric Multivitamin capsule and 3647-8736 mg calcium citrate per day OR 4 All-in-One Bariatric Multivitamin chewables per day www.bariatricchoice.Remixation, Inc. - Bariatric Advantage: 1 Ultra Solo multivitamin w/ iron (chewable or capsule) OR 2 chewable Advanced Multi EA w/ iron and 2601-2806 mg calcium citrate per day OR 2 Multi Chewy Bites and 3009-5161 mg calcium citrate and 45-60 mg iron per day www.bariatricadvantage.Remixation, Inc. - Bariatric Pal: 1 Multivitamin One (chewable or capsule) and 0963-4274 mg calcium citrate per day OR 4 All-in-One Multivitamin chewables per day www.Black Pearl Studio/colle ctions/bariatric-vitamins - Barilife: 1 Just One Bariatric Multivitamin w/ iron (chewable or capsule) and 9245-4061 mg calcium citrate per day www.barilife.Remixation, Inc. - Barimelts: 2 Multivitamin w/ iron tablets and 9721-4079 mg calcium citrate per day www.barimelts.Remixation, Inc. Pre-op goal weight: maintain current weight Protein needs: 68 gm per day Nutrition Monitoring & Evaluation: 1-2 pounds weight loss per week Need for Follow up: 3-4 weeks, [phone] documented in this encounter [facility] 11-06-2023 Note HNO ID: [id number] Author: ROLF PATINO RD Service: ? Author Type: Registered Dietitian Type: Progress Notes Filed: 11/06/2023 08:26 Note Text: The [facility] Nutrition Therapy: Virtual Consult - Initial Assessment I have communicated my name and active licensure. The patient?s identity and physical location were verified at the time of this visit. Either the patient or their legal sales account representative has been informed of the risks [...] Your Guide to Surgery by next session [email or web address].[email or web address] /[email or web address]/files/org/[email or web address] [email or web address]?la=en 2. Do not skip meals. 3. Use protein shake 1x per day to replace any skipped meals or for breakfast -Start to try the approved pre-op protein shake options: Slim Fast Advanced Nutrition OR Light Start Fountain Breakfast Essentials mixed with 1% or skim [...] per day OR 1 Multivitamin capsule and 3578-6574 mg calcium citrate per day OR 2 Multivitamin soft chews per day + 3 calcium citrate soft chews + 1 iron soft chew per day www.bariatricfusion.com - SureWaves Health: 1 Bariatric Multivitamin w/ iron (capsule or chewable) and 9201-3073 mg calcium citrate per day www.BestSecret.com - Bariatric Choice: 1 Once Daily Bariatric Multivitamin capsule and 8200-6633 mg calcium citrate per day OR 4 All-in-One Bariatric Multivitamin chewables per day www.bariatricchoBio-Key International.Remixation, Inc. - Bariatric Advantage: 1 Ultra Solo multivitamin w/ iron (chewable or capsule) OR 2 chewable Advanced Multi EA w/ iron and 2471-4635 mg calcium citrate per day OR 2 Multi Chewy Bites and 1456-7571 mg calcium citrate and 45-60 mg iron per day www.bariatricadSaaSAssurance.com - Bariatric Pal: 1 Multivitamin One (chewable or capsule) and 5531-5448 mg calcium citrate per day OR 4 All-in-One Multivitamin chewables per day www.[employer]/colle ctions/bariatric-vitamins - Barilife: 1 Just One Bariatric Multivitamin w/ iron (chewable or capsule) and 0058-8690 mg calcium citrate per day www.Gibi Technologies - Barimelts: 2 Multivitamin w/ iron tablets and 4347-0952 mg calcium citrate per day www.barimelts.Remixation, Inc. Pre-op goal weight: maintain current weight Protein needs: 68 gm per day Nutrition Monitoring AND Evaluation: 1-2 pounds weight loss per week Need for Follow up: 3-4 weeks, [phone] Patient presents for initial MNT consult in [...] to SSBs a (more content not included)... [facility] 11-06-2023 History of Presen t illness Narrative The [facility] Nutrition Therapy: Virtual Consult - Initial Assessment I have communicated my name and active licensure. The patient s identity and physical location were verified at the time of this visit. Either the patient or their legal sales account representative has been informed of the risks [...] Your Guide to Surgery by next session https://[email or web address].[email or web address]/- /scassets/files/org/[email or web address]/gu ides/[email or web address]? la=en 2. Do not skip meals. 3. Use protein shake 1x per day to replace any skipped meals or for breakfast -Start to try the approved pre-op protein shake options: Slim Fast Advanced Nutrition OR Light Start Fountain Breakfast Essentials mixed with 1% or skim [...] per day OR 1 Multivitamin capsule and 9746-8122 mg calcium citrate per day OR 2 Multivitamin soft chews per day + 3 calcium citrate soft chews + 1 iron soft chew per day www.bariatricfusion.com - [employer] Health: 1 Bariatric Multivitamin w/ iron (capsule or chewable) and 2334-4437 mg calcium citrate per day www.BestSecret.com - Bariatric Choice: 1 Once Daily Bariatric Multivitamin capsule and 9409-3736 mg calcium citrate per day OR 4 All-in-One Bariatric Multivitamin chewables per day www.bariatricchoBio-Key International.Remixation, Inc. - Bariatric Advantage: 1 Ultra Solo multivitamin w/ iron (chewable or capsule) OR 2 chewable Advanced Multi EA w/ iron and 9474-7286 mg calcium citrate per day OR 2 Multi Chewy Bites and 1414-3763 mg calcium citrate and 45-60 mg iron per day www.Openplay.Remixation, Inc. - Bariatric Pal: 1 Multivitamin One (chewable or capsule) and 0519-7674 mg calcium citrate per day OR 4 All-in-One Multivitamin chewables per day www.[employer]/colle ctions/bariatric-vitamins - Barilife: 1 Just One Bariatric Multivitamin w/ iron (chewable or capsule) and 7524-8363 mg calcium citrate per day www.bariProfitBricks.Remixation, Inc. - Barimelts: 2 Multivitamin w/ iron tablets and 8952-1389 mg calcium citrate per day www.barimelts.Remixation, Inc. Pre-op goal weight: maintain current weight Protein needs: 68 gm per day Nutrition Monitoring & Evaluation: 1-2 pounds weight loss per week Need for Follow up: 3-4 weeks, [phone] Patient presents for initial MNT consult in [...] although suspect low in intensity and duration. Milroy body weight: 124 lbs. Excess body weight: [...] Readings: Date: Ht: 11/06/2023 149.9 cm (4' 11.02) Weight: Last 1 Encounter Wt Readings: Date: [...] AM PAGER: N/A documented in this encounter [facility] 11-05-2023 Note HNO ID: [id number] Author: ?, ?, ? Service: ? Author Type: ? Type: Progress Notes Filed: 11/10/2023 12:39 Note Text: Nomad # [id number] , date shipped out 11-05-23 Fed Ex only Tracking mailout: [id number] Tracking return: [id number] [facility] 10-21-2023 Note HNO ID: [id number] Author: ?, ?, ? Service: ? Author Type: ? Type: Progress Notes Filed: 11/10/2023 12:39 Note Text: Rescheduled 11/05. [facility] 10-21-2023 Note HNO ID: [id number] Author: ?, ?, ? Service: ? Author Type: ? Type: Progress Notes Filed: 11/10/2023 12:39 Note Text: Sleep Study Check-In Documentation Date: October 21, 2023 Name: Angelique Wynne Comments: HST was returned in work order. 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 Romi Clark [facility] 10-21-2023 History of Presen t illness Narrative [...] her job soon. [facility] for few [...] ALLERGIES Allergen Reactions Oxaliplatin Anaphylaxis Went to [facility] ER 02/08/08 FAMILY HISTORY: FAMILY [...] (89 F) (Temporal) Ht 149.9 cm (4' 11.02) Wt 81.6 kg (180 lb) LMP 09/19/2017 [...] masses, organomegaly. 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 Author [...] her job soon. She has been in [facility] for her DM for few years and [...] ALLERGIES Allergen Reactions Oxaliplatin Anaphylaxis Went to [facility] ER 02/08/08 FAMILY HISTORY: FAMILY [...] (89 ?F) (Temporal) Ht 149.9 cm (4' 11.02) Wt 81.6 kg (180 lb) LMP 09/19/2017 SpO2 95% BMI 36.34 kg/m? General appearance: Morbidly obese Skin: Skin color, texture, turgor normal, no suspicious rashes or lesions Head: Normocephalic, no masses, lesions, tenderness or abnormalities Eyes: Anicteric sclera. Pupils (more content not included)... [facility] 10-21-2023 Nurse Note What is the reason for your visit today? New BMI Who is your referring physician? Program Are you having poor oral intake? NO Have you had unintentional weight loss of 15 lbs/7 Kg in the last 3-6 months? NO Bowels: vary Wound: Temperature: No Drains: No [facility] 10-21-2023 Nurse Note What is the reason for your visit today? New BMI Who is your referring physician? Program Are you having poor oral intake? NO Have you had unintentional weight loss of 15 lbs/7 Kg in the last 3-6 months? NO Bowels: vary Wound: Temperature: No Drains: No documented in this encounter [facility] 10-20-2023 Instructions Yaw Alas RN - 10/20/2023 2:[address] Ansari has requested a pre operative upper endoscopy (EGD) for your bariatric surgery. This procedure is to examine your stomach and small intestines. To schedule an Upper Endoscopy (EGD): Call [phone] -Select Option to schedule an appointment -Request to schedule an upper endoscopy -There are multiple [facility] locations to choose from and the material scheduler will assist with appointment for procedure. [...] is especially important if you have had hvtgq-jcnqhitdv-jsicw surgery in the past. How is an [...] black coffee, black tea, apple juice, jarrett asul, 7UP , sam, John-Aid , Gatorade , [...] at least 8 hours after the procedure. Yaw Gray RN documented in this encounter [facility] 10-17-2023 Note HNO ID: [id number] Author: EARLINE ZABALA LPN Service: ? Author Type: LICENSED NURSE Type: Progress Notes Filed: 10/17/2023 11:30 Note Text: Patient presents for EKG per Rachel Mcmillan CNP. Denies any problems at this time. Tolerated procedure well. Earline Zabala LPN [facility] 10-17-2023 History of Presen t illness Narrative Patient presents for EKG per Rachel Mcmillan CNP. Denies any problems at this time. Tolerated procedure well. Earline Zabala LPN documented in this encounter [facility] 10-17-2023 History of Presen t illness Narrative [...] PATIENT PRESENTS WITH AN IMPLANTABLE OR ATTACHED SAP TECHNICAL ARCHITECT: No RADIOLOGY DEPARTMENT: General X-ray: Exam(s) Completed: Chest X-Ray PERIPHERAL IV DATA: Not applicable SIGNED BY: RT Jose(Mallika) October 17, 2023 10:37 AM documented in this encounter [facility] 10-17-2023 Note HNO ID: [id number] Author: CHIDI CONNER RT(Mallika) Service: ? Author Type: Matrix Inspector Type: Progress Notes Filed: 10/17/2023 10:45 Note [...] PATIENT PRESENTS WITH AN IMPLANTABLE OR ATTACHED SAP TECHNICAL ARCHITECT: No RADIOLOGY DEPARTMENT: General X-ray: Exam(s) Completed: Chest X-Ray PERIPHERAL IV DATA: Not applicable SIGNED BY: RT Jose(R) October 17, 2023 10:37 AM [facility] 10-17-2023 History of Presen t illness [...] PATIENT PRESENTS WITH AN IMPLANTABLE OR ATTACHED SAP TECHNICAL ARCHITECT: No RADIOLOGY DEPARTMENT: Ultrasound PERIPHERAL IV DATA: Not applicable SIGNED BY: Joseline Jaquez RDMS RVT October 17, 2023 2:55 PM documented in this encounter [facility] 10-17-2023 Note HNO ID: [id number] Author: JOSELINE JAQUEZ RDMS Service: ? Author Type: [facility] Home [facility] Aides Teacher Type: Progress Notes Filed: 10/17/2023 14:55 Note [...] PATIENT PRESENTS WITH AN IMPLANTABLE OR ATTACHED SAP TECHNICAL ARCHITECT: No RADIOLOGY DEPARTMENT: Ultrasound PERIPHERAL IV DATA: Not applicable SIGNED BY: Joseline Jaquez RDMS RVT October 17, 2023 2:55 PM [facility] 10-15-2023 Note HNO ID: [id number] Author: ?, ?, ? Service: ? Author Type: ? Type: Progress Notes Filed: 11/10/2023 12:39 Note Text: Nomad# [id number] +gps Date shipped out 10/14 SENT [employer] - [employer] RETURN Tracking Mailout: [id number] Tracking Return: [id number] [facility] 10-14-2023 Note HNO ID: [id number] Author: VERO SEGUNDO III, PhD Service: ? Author Type: Physician Type: Progress Notes Filed: 11/10/2023 12:39 Note Text: October 14, 2023 Standing PSG Orders signed in the last 90 days None Future PSG Orders signed in the last 90 days Ordered Auth. provider HOME SLEEP APNEA TEST (HSAT) [[id number]] 10/02/23 Rachel Mcmillan APRN.VEGETABLE WORKER Assoc. diagnoses: Class 2 severe obesity with [...] No CONSULT TO SLEEP MEDICINE - ADULT [[id number]] 10/02/23 Rachel Mcmilaln APRN.VEGETABLE WORKER Assoc. diagnoses: Class 2 severe obesity with [...] Vero Segundo III, PhD 8:05 PM, 10/14/2023 [facility] 10-14-2023 Note HNO ID: [id number] Author: ?, ?, ? Service: ? Author Type: ? Type: Progress Notes Filed: 11/10/2023 12:39 Note Text: October 14, 2023 An order has been received for Home Sleep Apnea Test (HSAT) from Rachel Gracia, LESLIE.VEGETABLE WORKER , a [facility] Staff. Visit prep complete. Comments :No The sleep study is scheduled for 10/18. Insurance: Payor: MMO / Plan: MMO SUPERMED PPO / Product Type: PPO / Payer/Plan Subscr Sex Relation Sub. Ins. ID Effective Group Num 1. MMO - MMO SUP* ANGELIQUE WYNNE 1970 Female Self [id number] 11/30/18 [id number] [address] Aanli Polanco [facility] 10-06-2023 Note HNO ID: [id number] Author: RACHEL ESCALANTE PSYD Service: ? Author Type: Psychologist Type: Progress Notes Filed: 10/08/2023 08:53 Note Text: [facility] BARIATRIC SURGERY BEHAVIORAL HEALTH EVALUATION DATE OF SERVICE: 10/07/2023 TIME OF SERVICE: 8:30AM to 9:36AM COST CENTER: [facility] CPT CODE: - 70504 Brief Emotional/Behavioral Assessment with scoring/documentation [id number] Virtual Psych Diagnostic Eval BILLING CODE: ENDO PSYL MAIN Fink BMI Surgical Pathway Visit type: Psychology Visit SESSION #: 1 The patient signed the Informed Consent for Psychological Evaluation AND Care Form via [facility] (see consent dated 09/30/23), and the [facility] insurance benefits, fees for service, emergency procedures, and the limits of confidentiality that may pertain with any given case were discussed with the patient. The patient was given a copy of the consent form via [facility]. I have communicated my name and active licensure. The patient's identity and physical location were verified at the time of this visit. Either the patient or their legal sales account representative has been informed of the risks [...] Time of Virtual Visit: Pt work at [address] [place], [place] [id number] Emergency Contact: Chuck Wynne (Spouse) at [phone] IDENTIFYING INFORMATION Ms. Angelique Wynne is a 53 year old female. She was referred by Dr. Ansari. Ms. Wynne is seeking unsure surgery (leaning towards gastric bypass) for Class II obesity. COLLATERAL PARTIES PRESENT: none. MOTIVATION FOR SURGERY / UNDERSTANDING OF PROCEDURE / EXPECTATIONS: Ms. Wynne notes she is motivated for surgery by reducing medications and improving quality of life (prior to long term). The patient has a fair to good understanding of the surgery, risks, and benefits. She has talked with other people who have undergone the procedure (several friends, coworker). Specific areas of understanding that should be addressed include nutrition after surgery and risks associated with surgery. The patient has not attended a weight loss surgery support group but is watching patients on [employer]. The patient initially denied any specific weight [...] Control, Normal soln (more content not included)... [facility] 10-02-2023 History of Presen t illness Narrative BMI Obesity Medicine Initial Bariatric Surgery Consult Virtual visit Virtual Visit (Audio/Visual)I have discussed the nature of this visit with the patient which will occur via [facility] (Phone, Virtual Visit) and she agrees to proceed with this interaction. I have communicated my name and active licensure. The patient's identity and physical location were verified at the time of this visit. Either the patient or their legal sales account representative has been informed of the risks [...] NO ; CPAP NO Quality:poor, Few awakenings Audio Director Work? NO STOP BANG Criteria: Snoring Hypertension [...] ALLERGIES Allergen Reactions Oxaliplatin Anaphylaxis Went to [facility] ER 02/08/08 PAST SURGICAL HISTORY [...] of a mobility device Psychiatric: negative Endocrine: +[id number] Neuro: No history of headaches, syncope, paralysis, seizures or tremors Physical Exam:(VIRTUAL) Ht 149.9 cm (4' 11) Wt 80.7 kg (178 lb) LMP 09/19/2017 [...] which included preparing to see the patient, giux-gb-jtlj patient care, completing clinical documentation, obtaining and/or reviewing separately obtained history, performing a medically appropriate examination, counseling and educating the patient/family/caregiver, ordering medications, tests, or procedures, and independently interpreting results (not separately reported). Rachel Mcmillan APRN.CNP documented in this encounter [facility] 10-02-2023 Note HNO ID: [id number] Author: RACHEL MCMILLAN APRN.CNP Service: ? Author Type: Nurse Practitioner Type: Progress Notes Filed: 10/02/2023 09:09 Note Text: BMI Obesity Medicine Initial Bariatric Surgery Consult Virtual visit Virtual Visit (Audio/Visual)I have discussed the nature of this visit with the patient which will occur via [facility] (Phone, Virtual Visit) and she agrees to proceed with this interaction. I have communicated my name and active licensure. The patient's identity and physical location were verified at the time of this visit. Either the patient or their legal sales account representative has been informed of the risks [...] Watchers Slim Fast shakes Previous AOM Rx: simin Diez Exercise: Regular exercise: 3x/week walks at work (on lunch and breaks) Barriers to regular exercise? None Stress test: no Functional Status: Do heavy work around the house, such as scrubbing floors, lifting or moving heavy furniture (8.00 METs) Patient denies any chest pain or undue shortness of breath with the above physical activity. ?Sleep: JANA NO ; CPAP NO Quality:poor, Few awakenings Audio Director Work? NO STOP BANG Criteria: Snoring Hypertension [...] ALLERGIES Allergen Reactions Oxaliplatin Anaphylaxis Went to [facility] ER 02/08/08 PAST SURGICAL HISTORY [...] Heart Father dec (more content not included)... [facility] 09-08-2023 Miscellaneous Notes September 09, 2023 PID: [id number] Angelique Wynne [address] [place] [address] Dear Ms. Wynne, We are pleased to [...] report will be kept on file at [facility] as part of your permanent medical record and are available for your continuing care. Thank you for allowing us to help in meeting your health care needs. Sincerely, Dr. Mekhail Interpreting Radiologist [facility] (Normal over 40) documented in this encounter [facility] 09-05-2023 History of Presen t illness Narrative [...] PATIENT PRESENTS WITH AN IMPLANTABLE OR ATTACHED SAP TECHNICAL ARCHITECT: No RADIOLOGY DEPARTMENT: Mammography PERIPHERAL IV DATA: Not applicable SIGNED BY: RT Jazmin(R) September 05, 2023 9:32 AM documented in this encounter [facility] 08-13-2023 Miscellaneous Notes Patient has been identified by name and date of : Yes Requested Prescriptions Pending Prescriptions Disp Refills lisinopril (ZESTRIL) 20 mg tablet 90 tablet 1 Sig: Take 1 tablet by mouth once daily. RX INSTRUCTIONS: Patient aware RX will be sent to pharmacy. No need to notify patient. PARUL 06/13/23 Scheduled 12/05/23 Taty Walker LPN documented in this encounter [facility] 02-07-2023 Miscellaneous Notes Last office visit: 12/13/22 F/u scheduled: 06/13/23 Merle Fuentes Ma documented in this encounter [facility] 12-13-2022 History of Presen t illness Narrative [...] Abs Lymph 1.00 - 4.00 k/uL 2.74 Berrien% % 5.5 Abs Berrien <0.87 k/uL 0.56 Eosin% % 1.8 Abs [...] ALLERGIES Allergen Reactions Oxaliplatin Anaphylaxis Went to [facility] ER 02/08/08 PAST MEDICAL HISTORY [...] Luis Staley MD documented in this encounter [facility] 08-08-2022 Miscellaneous Notes Patient has been identified by name and date of : Yes Requested Prescriptions Pending Prescriptions Disp Refills lisinopril (ZESTRIL) 20 mg tablet 90 tablet 1 Sig: Take 1 tablet by mouth once daily. PARUL 06/17/22 RX INSTRUCTIONS: Patient aware RX will be sent to pharmacy. No need to notify patient. Carola Malagon Ma documented in this encounter [facility] 06-17-2022 History of Presen t illness Narrative [...] 2022 9:27 AM documented in this encounter [facility] 12-19-2021 History of Presen t illness Narrative [...] ALLERGIES Allergen Reactions Oxaliplatin Anaphylaxis Went to [facility] ER 02/08/08 PAST MEDICAL HISTORY [...] months and prn. documented in this encounter [facility] 12-21-2010 History of Past i llness Narrative [...] of this encounter (statuses as of 12/13/2022) [facility] History of Past illness Narrative* Problem Noted [...] of this encounter (statuses as of 02/08/2023) [facility] History of Past illness Narrative* Problem Noted [...] of this encounter (statuses as of 04/06/2023) [facility] History of Past illness Narrative* Problem Noted [...] of this encounter (statuses as of 08/13/2023) [facility] History of Past illness Narrative* Problem Noted [...] of this encounter (statuses as of 09/06/2023) [facility] History of Past illness Narrative* Problem Noted [...] of this encounter (statuses as of 09/10/2023) [facility] History of Past illness Narrative* Problem Noted Date Resolved Date Dysmetabolic syndrome 10/03/2010 11/03/2013 Unspecified vitamin D deficiency 07/09/2010 12/18/2020 Personal history of malignan t neoplasm of rectum, rectosigmoid junction, and anus 08/15/2008 12/18/2020 Blood in stool 08/10/2007 12/18/2020 Sebaceous cyst 03/13/2007 12/18/2020 documented as of this encounter (statuses as of 12/03/2021) [facility] History of Past illness Narrative* Problem Noted Date Resolved Date Dysmetabolic syndrome 10/03/2010 11/03/2013 Unspecified vitamin D deficiency 07/09/2010 12/18/2020 Personal history of malignan t neoplasm of rectum, rectosigmoid junction, and anus 08/15/2008 12/18/2020 Blood in stool 08/10/2007 12/18/2020 Sebaceous cyst 03/13/2007 12/18/2020 documented as of this encounter (statuses as of 12/19/2021) [facility]05[facility] History of Past illness Narrative* Problem Noted Date Resolved Date Dysmetabolic syndrome 10/03/2010 11/03/2013 Unspecified vitamin D deficiency 07/09/2010 12/18/2020 Personal history of malignan t neoplasm of rectum, rectosigmoid junction, and anus 08/15/2008 12/18/2020 Blood in stool 08/10/2007 12/18/2020 Sebaceous cyst 03/13/2007 12/18/2020 documented as of this encounter (statuses as of 12/20/2021) [facility]-2011 History of Past illness Narrative* Problem Noted Date Resolved Date Dysmetabolic syndrome 10/03/2010 11/03/2013 Unspecified vitamin D deficiency 07/09/2010 12/18/2020 Personal history of malignan t neoplasm of rectum, rectosigmoid junction, and anus 08/15/2008 12/18/2020 Blood in stool 08/10/2007 12/18/2020 Sebaceous cyst 03/13/2007 12/18/2020 documented as of this encounter (statuses as of 08/08/2022) [facility] note* Diagnosis Encounter for screening mammogram for breast cancer documented in this encounter [facility] note* Diagnosis Essential hypertension- Primary Unspecified essential hypertension Diabetes mellitus without complication (HCC) Type II or unspecified type diabetes mellitus without mention of complication, not stated as uncontrolled Mixed hyperlipidemia Malignant neoplasm of colon, unspecified part of colon (HCC) documented in this encounter [facility] note* Diagnosis Diabetes mellitus without complication (HCC) Type II or unspecified type diabetes mellitus without mention of complication, not stated as uncontrolled documented in this encounter [facility] note* Diagnosis Essential hypertension Unspecified essential hypertension documented in this encounter [facility] note* Diagnosis Essential hypertension- Primary Unspecified [...] 35-39.9 Obesity, unspecified documented in this encounter [facility] note* Diagnosis Essential hypertension Unspecified essential hypertension documented in this encounter [facility] note* Diagnosis Encounter for screening mammogram for breast cancer documented in this encounter [facility] note* Diagnosis Essential hypertension Unspecified essential hypertension documented in this encounter [facility] note* Diagnosis Screening breast examination Breast screening, unspecified documented in this encounter [facility] note* Diagnosis Class 2 severe obesity with serious comorbidity and body mass index (BMI) of 35.0 to 35.9 in adult, unspecified obesity type (HCC)- Primary documented in this encounter [facility] note* Diagnosis Class 2 severe obesity with serious comorbidity and body mass index (BMI) of 35.0 to 35.9 in adult, unspecified obesity type (HCC) documented in this encounter [facility] note* Diagnosis Class 2 severe obesity with serious comorbidity and body mass index (BMI) of 35.0 to 35.9 in adult, unspecified obesity type (HCC) documented in this encounter [facility] note* Diagnosis Class 2 severe obesity with serious comorbidity and body mass index (BMI) of 35.0 to 35.9 in adult, unspecified obesity type (HCC) documented in this encounter [facility] note* Diagnosis Class 2 severe obesity with serious comorbidity and body mass index (BMI) of 35.0 to 35.9 in adult, unspecified obesity type (HCC)- Primary documented in this encounter [facility] note* Diagnosis Diabetes mellitus without complication (HCC)- Primary Type II or unspecified type diabetes mellitus without mention of complication, not stated as uncontrolled Obesity, Class II, BMI 35-39.9 Obesity, unspecified Dietary counseling and surveillance Dietary surveillance and counseling documented in this encounter [facility] note* Diagnosis Obesity, Class II, BMI 35-39.9- Primary Obesity, unspecified Class 2 severe obesity with serious comorbidity and body mass index (BMI) of 35.0 to 35.9 in adult, unspecified obesity type (HCC) documented in this encounter [facility] note* Diagnosis Personal history of rectal cancer- Primary Personal history of malignant neoplasm of rectum, rectosigmoid junction, and anus documented in this encounter [facility] note* Diagnosis Obesity, Class II, BMI 35-39.9- Primary Obesity, unspecified Dietary counseling and surveillance Dietary surveillance and counseling documented in this encounter [facility] note* Diagnosis Elevated alkaline phosphatase level- Primary Other nonspecific abnormal serum enzyme levels documented in this encounter [facility] note* Diagnosis Mixed hyperlipidemia- Primary Essential [...] junction, and anus documented in this encounter [facility] note* Diagnosis JANA (obstructive sleep apnea)- Primary Obstructive sleep apnea (adult) (pediatric) Class 2 severe obesity with serious comorbidity and body mass index (BMI) of 35.0 to 35.9 in adult, unspecified obesity type (HCC) documented in this encounter [facility] note* Diagnosis Obesity, Class II, BMI 35-39.9- Primary Obesity, unspecified documented in this encounter [facility] note* Diagnosis Mixed hyperlipidemia Essential hypertension Unspecified essential hypertension documented in this encounter [facility] note* Diagnosis Obesity, Class II, BMI 35-39.9- Primary Obesity, unspecified Dietary counseling and surveillance Dietary surveillance and counseling Obesity, Class II, BMI 35-39.9 Obesity, unspecified documented in this encounter [facility] note* Diagnosis JANA (obstructive sleep apnea)- Primary Obstructive sleep apnea (adult) (pediatric) Obesity, Class II, BMI 35-39.9 Obesity, unspecified documented in this encounter [facility] note* Diagnosis Essential hypertension- Primary Unspecified essential hypertension Personal history of rectal cancer Personal history of malignant neoplasm of rectum, rectosigmoid junction, and anus Diabetes mellitus without complication (HCC) Type II or unspecified type diabetes mellitus without mention of complication, not stated as uncontrolled documented in this encounter [facility] note* Diagnosis Mixed hyperlipidemia- Primary Essential hypertension Unspecified essential hypertension Diabetes mellitus without complication (HCC) Type II or unspecified type diabetes mellitus without mention of complication, not stated as uncontrolled Personal history of rectal cancer Personal history of malignant neoplasm of rectum, rectosigmoid junction, and anus Obesity, Class II, BMI 35-39.9 Obesity, unspecified Encounter for screening mammogram for malignant neoplasm of breast Other screening mammogram documented in this encounter [facility] note* Diagnosis Diabetes mellitus without complication (HCC) Type II or unspecified type diabetes mellitus without mention of complication, not stated as uncontrolled [facility] Diagnosis Diabetes mellitus without complication (HCC) Type II or unspecified type diabetes mellitus without mention of complication, not stated as uncontrolled [facility] Diagnosis Obesity, Class II, BMI 35-39.9- Primary Obesity, unspecified Diabetes mellitus without complication (HCC) Type II or unspecified type diabetes mellitus without mention of complication, not stated as uncontrolled [facility] Diagnosis Diabetes mellitus without complication (HCC)- Primary Type II or unspecified type diabetes mellitus without mention of complication, not stated as uncontrolled documented in this encounter [facility] for referral (narrative)* Diagnostic Procedure Only (Routine) - Pending Review Specialty Diagnoses / Procedures Referred By Lilliam man Referred To Contact [facility] Diagnoses Encounter for screening mammogram for breast cancer Procedures GUICHO SCREENING SCREENING MAMMOGRAPHY BI 2-VIEW BREAST INC Luis Saenz MD [address] [place] [address] [facility] [address] [address] Referral ID Status Reason Start Date Expiration Date Visits Requested Visits Authorized [id number] Pending Review Auto-Generat ed Referral 11/28/2021 12/28/2022 1 1 [facility] for referral (narrative)* Diagnostic Procedure Only (Routine) - Closed Specialty Diagnoses / Procedures Referred By Lilliam man Referred To Contact [facility] Diagnoses Encounter for screening mammogram for breast cancer Procedures GUICHO SCREENING SCREENING MAMMOGRAPHY BI 2-VIEW BREAST INC Luis Saenz MD [address] [place] [address] [facility] [address] [address] Referral ID Status Reason Start Date Expiration Date V isits Requested Visits Authorized [id number] Closed Auto-Generate d Referral 11/28/2021 12/28/2022 1 1 [facility] for referral (narrative)* Outpatient Procedure (Routine) - Authorized Specialty Diagnoses / Procedures Referred By Lilliam t Referred To Contact [facility] [place] Diagnoses Class 2 severe obesity with serious comorbidity and body mass index (BMI) of 35.0 to 35.9 in adult, unspecified obesity type (HCC) Procedures EGD DIAGNOSTIC ESOPHAGOGASTRODUODENOSC OPY [place] [address] [address] [address] [facility] [place] [address] [place] [address] Referral ID Status Reason Start Date Expiration Date Visits Requested Visits Authorized [id number] Authorized Auto-Generat ed Referral 10/21/2023 10/19/2024 1 1 T [facility] for referral (narrative)* Outpatient Procedure (Routine) - Closed Specialty Diagnoses / Procedures Referred By Lilliam t Referred To [facility] Diagnoses Class 2 severe obesity with serious comorbidity and body mass index (BMI) of 35.0 to 35.9 in adult, unspecified obesity type (HCC) Procedures EGD DIAGNOSTIC ESOPHAGOGASTRODUODENOSC OPY [place] [address] [address] [facility] [address] [place] [address] Referral ID Status Reason Start Date Expiration Date V isits Requested Visits Authorized [id number] Closed Auto-Generate d Referral 10/21/2023 10/19/2024 1 1 T [facility] for referral (narrative)* Diagnostic Procedure Only (Routine) - New Request Specialty Diagnoses / Procedures Referred By Lilliam t Referred To Contact [facility] Diagnoses Encounter for screening mammogram for malignant neoplasm of breast Procedures GUICHO SCREENING SCREENING MAMMOGRAPHY BI 2-VIEW BREAST INC CAD Luis Staley MD [address] [place] [address] [facility] [address] [place] [address] Referral ID Status Reason Start Date Expiration Date Visits Requested Visits Authorized [id number] New Request Auto-Generat ed Referral 06/09/2024 07/09/2025 1 1 [facility] for visit Narrative* Diagnostic Procedure Only (Routine) - Closed Specialty Diagnoses / Procedures Referred By Lilliam man Referred To Contact [facility] Diagnoses Encounter for screening mammogram for breast cancer Procedures GUICHO SCREENING SCREENING MAMMOGRAPHY BI 2-VIEW BREAST INC Luis Saenz MD [address] [place] [address] [facility] [address] [place] [address] Referral ID Status Reason Start Date Expiration Date V isits Requested Visits Authorized [id number] Closed Auto-Generate d Referral 11/28/2021 12/28/2022 1 1 [facility] for visit Narrative* Diagnostic Procedure Only (Routine) - Closed Specialty Diagnoses / Procedures Referred By Lilliam man Referred To Contact [facility] Diagnoses Screening breast examination Procedures GUICHO SCREENING SCREENING MAMMOGRAPHY BI 2-VIEW BREAST INC Luis Saenz MD [address] [place] [address] [facility] [address] [place] [address] Referral ID Status Reason Start Date Expiration Date V isits Requested Visits Authorized [id number] Closed Auto-Generate d Referral 06/13/2023 07/12/2024 1 1 [facility] for visit Narrative* Outpatient Procedure (Routine) - Closed Specialty Diagnoses / Procedures Referred By Lilliam man Referred To [facility] Diagnoses Class 2 severe obesity with serious comorbidity and body mass index (BMI) of 35.0 to 35.9 in adult, unspecified obesity type (HCC) Procedures EGD DIAGNOSTIC ESOPHAGOGASTRODUODENOSC OPY TR[place] [address] [address] [address] [facility] [place] [address] [place] [address] Referral ID Status Reason Start Date Expiration Date V isits Requested Visits Authorized [id number] Closed Auto-Generate d Referral 10/21/2023 10/19/2024 1 1 [facility] Advance Directives Documents on File Type Date Recorded Patient End Trimmer Expl anation Advance Directive(s) Advance Directive(s) 01/06/2020 6:46 AM Advance Directive(s) 12/28/2019 2:58 PM Documents on File Type Date Recorded Patient End Trimmer Expl anation Advance Directive(s) Advance Directive(s) 01/06/2020 6:46 AM Advance Directive(s) 12/28/2019 2:58 PM Reason for Referral Specialty Diagnoses / Procedures Referred By Contac t Referred To Contact Diagnoses Class 2 severe obesity with serious comorbidity and body mass index (BMI) of 35.0 to 35.9 in adult, unspecified obesity type (HCC) Procedures CONSULT TO SLEEP MEDICINE - ADULT OFFICE/OUTPATIENT [facility] 60 MINUTES Rachel Mcmillan APRN.VEGETABLE WORKER [address] [place] [address] Referral ID Status Reason Start Date Expiration Date Visits Requested Visits Authorized [id number] Authorized PCP Requested Referral 10/02/2023 12/31/2023 1 1 Specialty Diagnoses / Procedures Referred By Contac t Referred To [facility] Diagnoses Class 2 severe obesity with serious comorbidity and body mass index (BMI) of 35.0 to 35.9 in adult, unspecified obesity type (HCC) Procedures HOME SLEEP APNEA TEST (HSAT) SLEEP STD AIRFLOW HRT RATE&O2 SAT EFFORT UNATT Rachel Mcmillan, BLEACH CHLORINATOR.VEGETABLE WORKER [address] [place] [address] [facility] [place] [id number] Referral ID Status Reason Start Date Expiration Date Visits Requested Visits Authorized [id number] Authorized Auto-Generat ed Referral 10/02/2023 10/01/2024 1 1 Specialty Diagnoses / Procedures Referred By Contac t Referred To Contact [facility] Diagnoses Class 2 severe obesity with serious comorbidity and body mass index (BMI) of 35.0 to 35.9 in adult, unspecified obesity type (HCC) Procedures US ABD RIGHT UPPER QUADRANT US ABDOMINAL REAL TIME W/IMAGE LIMITED Rachel Mcmillan, LESLIE.VEGETABLE WORKER [address] [place] [address] [facility] [address] Referral ID Status Reason Start Date Expiration Date Visits Requested Visits Authorized [id number] Authorized Auto-Generat ed Referral 10/02/2023 10/31/2024 1 1 Specialty Diagnoses / Procedures Referred By Contac t Referred [facility] Diagnoses Class 2 severe obesity with serious comorbidity and body mass index (BMI) of 35.0 to 35.9 in adult, unspecified obesity type (HCC) Procedures ECG COMPLETE ECG ROUTINE ECG W/LEAST 12 LDS W/I&R Rachel Mcmlilan, BLEACH CHLORINATOR.VEGETABLE WORKER [address] [place] [address] [facility] [place] [address] [place] [address] Referral ID Status Reason Start Date Expiration Date Visits Requested Visits Authorized [id number] Authorized Auto-Generat ed Referral 10/02/2023 10/01/2024 1 1 Summary Purpose Family History No Family History Records FoundNo Family History Records Found Additional Source Comments Source Comments (unrecognize d section and content) In the event this informatio n is protected by the Federal Confidentiality of Alcohol and Drug Abuse Patient Records regulations: The Federal rules restrict any use of the information to criminally investigate or prosecute any alcohol or drug abuse patient.[facility] the event this information is protected by the Federal Confidentiality of Alcohol and Drug Abuse Patient Records regulations: The Federal rules restrict any use of the information to criminally investigate or prosecute any alcohol or drug abuse patient.[facility] the event this information is protected by the Federal Confidentiality of Alcohol and Drug Abuse Patient Records regulations: The Federal rules restrict any use of the information to criminally investigate or prosecute any alcohol or drug abuse patient.[facility] the event this information is protected by the Federal Confidentiality of Alcohol and Drug Abuse Patient Records regulations: The Federal rules restrict any use of the information to criminally investigate or prosecute any alcohol or drug abuse patient.[facility] the event this information is protected by the Federal Confidentiality of Alcohol and Drug Abuse Patient Records regulations: The Federal rules restrict any use of the information to criminally investigate or prosecute any alcohol or drug abuse patient.[facility] the event this information is protected by the Federal Confidentiality of Alcohol and Drug Abuse Patient Records regulations: The Federal rules restrict any use of the information to criminally investigate or prosecute any alcohol or drug abuse patient.[facility] the event this information is protected by the Federal Confidentiality of Alcohol and Drug Abuse Patient Records regulations: The Federal rules restrict any use of the information to criminally investigate or prosecute any alcohol or drug abuse patient.[facility] the event this information is protected by the Federal Confidentiality of Alcohol and Drug Abuse Patient Records regulations: The Federal rules restrict any use of the information to criminally investigate or prosecute any alcohol or drug abuse patient.[facility] the event this information is protected by the Federal Confidentiality of Alcohol and Drug Abuse Patient Records regulations: The Federal rules restrict any use of the information to criminally investigate or prosecute any alcohol or drug abuse patient.[facility] the event this information is protected by the Federal Confidentiality of Alcohol and Drug Abuse Patient Records regulations: The Federal rules restrict any use of the information to criminally investigate or prosecute any alcohol or drug abuse patient.[facility] the event this information is protected by the Federal Confidentiality of Alcohol and Drug Abuse Patient Records regulations: The Federal rules restrict any use of the information to criminally investigate or prosecute any alcohol or drug abuse patient.[facility] the event this information is protected by the Federal Confidentiality of Alcohol and Drug Abuse Patient Records regulations: The Federal rules restrict any use of the information to criminally investigate or prosecute any alcohol or drug abuse patient.[facility] the event this information is protected by the Federal Confidentiality of Alcohol and Drug Abuse Patient Records regulations: The Federal rules restrict any use of the information to criminally investigate or prosecute any alcohol or drug abuse patient.[facility] the event this information is protected by the Federal Confidentiality of Alcohol and Drug Abuse Patient Records regulations: The Federal rules restrict any use of the information to criminally investigate or prosecute any alcohol or drug abuse patient.[facility] the event this information is protected by the Federal Confidentiality of Alcohol and Drug Abuse Patient Records regulations: The Federal rules restrict any use of the information to criminally investigate or prosecute any alcohol or drug abuse patient.[facility] the event this information is protected by the Federal Confidentiality of Alcohol and Drug Abuse Patient Records regulations: The Federal rules restrict any use of the information to criminally investigate or prosecute any alcohol or drug abuse patient.[facility] the event this information is protected by the Federal Confidentiality of Alcohol and Drug Abuse Patient Records regulations: The Federal rules restrict any use of the information to criminally investigate or prosecute any alcohol or drug abuse patient.[facility] the event this information is protected by the Federal Confidentiality of Alcohol and Drug Abuse Patient Records regulations: The Federal rules restrict any use of the information to criminally investigate or prosecute any alcohol or drug abuse patient.[facility] the event this information is protected by the Federal Confidentiality of Alcohol and Drug Abuse Patient Records regulations: The Federal rules restrict any use of the information to criminally investigate or prosecute any alcohol or drug abuse patient.[facility] the event this information is protected by the Federal Confidentiality of Alcohol and Drug Abuse Patient Records regulations: The Federal rules restrict any use of the information to criminally investigate or prosecute any alcohol or drug abuse patient.[facility] the event this information is protected by the Federal Confidentiality of Alcohol and Drug Abuse Patient Records regulations: The Federal rules restrict any use of the information to criminally investigate or prosecute any alcohol or drug abuse patient.[facility] the event this information is protected by the Federal Confidentiality of Alcohol and Drug Abuse Patient Records regulations: The Federal rules restrict any use of the information to criminally investigate or prosecute any alcohol or drug abuse patient.[facility] the event this information is protected by the Federal Confidentiality of Alcohol and Drug Abuse Patient Records regulations: The Federal rules restrict any use of the information to criminally investigate or prosecute any alcohol or drug abuse patient.[facility] the event this information is protected by the Federal Confidentiality of Alcohol and Drug Abuse Patient Records regulations: The Federal rules restrict any use of the information to criminally investigate or prosecute any alcohol or drug abuse patient.[facility] the event this information is protected by the Federal Confidentiality of Alcohol and Drug Abuse Patient Records regulations: The Federal rules restrict any use of the information to criminally investigate or prosecute any alcohol or drug abuse patient.[facility] the event this information is protected by the Federal Confidentiality of Alcohol and Drug Abuse Patient Records regulations: The Federal rules restrict any use of the information to criminally investigate or prosecute any alcohol or drug abuse patient.[facility] the event this information is protected by the Federal Confidentiality of Alcohol and Drug Abuse Patient Records regulations: The Federal rules restrict any use of the information to criminally investigate or prosecute any alcohol or drug abuse patient.[facility]In the event this information is protected by the Federal Confidentiality of Alcohol and Drug Abuse Patient Records regulations: The Federal rules restrict any use of the information to criminally investigate or prosecute any alcohol or drug abuse patient.[facility]hillIn the event this information is protected by the Federal Confidentiality of Alcohol and Drug Abuse Patient Records regulations: The Federal rules restrict any use of the information to criminally investigate or prosecute any alcohol or drug abuse patient.[facility]hillIn the event this information is protected by the Federal Confidentiality of Alcohol and Drug Abuse Patient Records regulations: The Federal rules restrict any use of the information to criminally investigate or prosecute any alcohol or drug abuse patient.[facility]hillIn the event this information is protected by the Federal Confidentiality of Alcohol and Drug Abuse Patient Records regulations: The Federal rules restrict any use of the information to criminally investigate or prosecute any alcohol or drug abuse patient.[facility]hillIn the event this information is protected by the Federal Confidentiality of Alcohol and Drug Abuse Patient Records regulations: The Federal rules restrict any use of the information to criminally investigate or prosecute any alcohol or drug abuse patient.[facility]hillIn the event this information is protected by the Federal Confidentiality of Alcohol and Drug Abuse Patient Records regulations: The Federal rules restrict any use of the information to criminally investigate or prosecute any alcohol or drug abuse patient.[facility]hillIn the event this information is protected by the Federal Confidentiality of Alcohol and Drug Abuse Patient Records regulations: The Federal rules restrict any use of the information to criminally investigate or prosecute any alcohol or drug abuse patient.[facility]hillIn the event this information is protected by the Federal Confidentiality of Alcohol and Drug Abuse Patient Records regulations: The Federal rules restrict any use of the information to criminally investigate or prosecute any alcohol or drug abuse patient.[facility]hillIn the event this information is protected by the Federal Confidentiality of Alcohol and Drug Abuse Patient Records regulations: The Federal rules restrict any use of the information to criminally investigate or prosecute any alcohol or drug abuse patient.[facility]hillIn the event this information is protected by the Federal Confidentiality of Alcohol and Drug Abuse Patient Records regulations: The Federal rules restrict any use of the information to criminally investigate or prosecute any alcohol or drug abuse patient.[facility]hillIn the event this information is protected by the Federal Confidentiality of Alcohol and Drug Abuse Patient Records regulations: The Federal rules restrict any use of the information to criminally investigate or prosecute any alcohol or drug abuse patient.[facility]hillIn the event this information is protected by the Federal Confidentiality of Alcohol and Drug Abuse Patient Records regulations: The Federal rules restrict any use of the information to criminally investigate or prosecute any alcohol or drug abuse patient.[facility]hillIn the event this information is protected by the Federal Confidentiality of Alcohol and Drug Abuse Patient Records regulations: The Federal rules restrict any use of the information to criminally investigate or prosecute any alcohol or drug abuse patient.[facility]hillIn the event this information is protected by the Federal Confidentiality of Alcohol and Drug Abuse Patient Records regulations: The Federal rules restrict any use of the information to criminally investigate or prosecute any alcohol or drug abuse patient.[facility]hillIn the event this information is protected by the Federal Confidentiality of Alcohol and Drug Abuse Patient Records regulations: The Federal rules restrict any use of the information to criminally investigate or prosecute any alcohol or drug abuse patient.[facility] Care Teams (unrecognized sec tion and content) Pinmaker Relationship Specialty Start Date End Date Luis Staley MD [address] [place], [place] [address] PCP - General Family Practice 08/27/13 Pinmaker Relationship Specialty Start Date End Date Luis Staley MD [address] [place], [place] [address] PCP - General Family Practice 08/27/13 Pinmaker Relationship Specialty Start Date End Date Luis Staley MD [address] [place] [address] PCP - General Family Practice 08/27/13 Pinmaker Relationship Specialty Start Date End Date Luis Staley MD [address] [place], [place] [address] PCP - General Family Medicine 08/27/13 Pinmaker Relationship Specialty Start Date End Date Luis Staley MD [address] [place], [place] [address] PCP - General Family Medicine 08/27/13 Pinmaker Relationship Specialty Start Date End Date Luis Staley MD [address] [place] [address] PCP - General Family Medicine 08/27/13 Pinmaker Relationship Specialty Start Date End Date Luis Staley MD [address] [place] [address] PCP - General Family Medicine 08/27/13 Pinmaker Relationship Specialty Start Date End Date Luis Staley MD [address] [place] [address] PCP - General Family Medicine 08/27/13 Pinmaker Relationship Specialty Start Date End Date Luis Staley MD [address] [place] [address] PCP - General Family Medicine 08/27/13 Pinmaker Relationship Specialty Start Date End Date Luis Staley MD [address] [place] [address] PCP - General Family Medicine 08/27/13 Pinmaker Relationship Specialty Start Date End Date Luis Staley MD [address] [place] [address] PCP - General Family Medicine 08/27/13 Pinmaker Relationship Specialty Start Date End Date Luis Staley MD [address] [place], [place] [address] PCP - General Family Medicine 08/27/13 Pinmaker Relationship Specialty Start Date End Date Luis Staley MD [address] [place], [place] [address] PCP - General Family Medicine 08/27/13 Pinmaker Relationship Specialty Start Date End Date Luis Staley MD [address] [place] [address] PCP - General Family Medicine 08/27/13 Pinmaker Relationship Specialty Start Date End Date Luis Staley MD [address] [place] [address] PCP - General Family Medicine 08/27/13 Pinmaker Relationship Specialty Start Date End Date Luis Staley MD [address] [place] [address] PCP - General Family Medicine 08/27/13 Pinmaker Relationship Specialty Start Date End Date Luis Staley MD [address] [place] [address] PCP - General Family Medicine 08/27/13 Pinmaker Relationship Specialty Start Date End Date Luis Staley MD [address] [place] [address] PCP - General Family Medicine 08/27/13 Pinmaker Relationship Specialty Start Date End Date Luis Staley MD [address] [place] [address] PCP - General Family Medicine 08/27/13 Pinmaker Relationship Specialty Start Date End Date Luis Staley MD [address] [place] [address] PCP - General Family Medicine 08/27/13 Pinmaker Relationship Specialty Start Date End Date Luis Staley MD [address] [place], [place] [address] PCP - General Family Medicine 08/27/13 Pinmaker Relationship Specialty Start Date End Date Luis Staley MD [address] [facility] [place] [address] PCP - General Family Medicine 08/27/13 Pinmaker Relationship Specialty Start Date End Date Luis Staley MD [address] [facility] [place] [address] PCP - General Family Medicine 08/27/13 Stephanie Darden APRN.VEGETABLE WORKER [address] [place] [address] Pelt Inspector Family Medicine 05/10/24 Linda Menjivar BLEACH CHLORINATOR.VEGETABLE WORKER [address] [place] [address] Pelt Inspector Family Medicine 05/10/24 Pinmaker Relationship Specialty Start Date End Date Luis Staley MD [address] [facility] [place] [place] [address] PCP - General Family Medicine 08/27/13 Stephanie Darden APRN.VEGETABLE WORKER [address] [place] [address] Pelt Inspector Family Medicine 05/10/24 Linda Menjivar BLEACH CHLORINATOR.VEGETABLE WORKER [address] [facility] [place] [address] Pelt Inspector Family Medicine 05/10/24 Pinmaker Relationship Specialty Start Date End Date Luis Staley MD [address] [place] [address] PCP - General Family Medicine 08/27/13 Stephanie Darden BLEACH CHLORINATOR.VEGETABLE WORKER [address] [place] [address] Pelt Inspector Family Medicine 05/10/24 Linda Menjivar BLEACH CHLORINATOR.VEGETABLE WORKER [address] [place] [address] Pelt Inspector Family [facility] 05/10/24 Pinmaker Relationship Specialty Start Date End Date Luis Staley MD [address] [place] [address] PCP - General Family Medicine 08/27/13 Stephanie Darden BLEACH CHLORINATOR.VEGETABLE WORKER [address] [place] [address] Pelt Inspector Family Medicine 05/10/24 Linda Menjivar BLEACH CHLORINATOR.VEGETABLE WORKER [address] [place] [address] [facility]24 Pinmaker Relationship Specialty Start Date End Date Luis Staley MD [address] [place] [address] PCP - General Family Medicine 08/27/13 Stephanie Darden BLEACH CHLORINATOR.VEGETABLE WORKER [address] [place] [address] [facility] Family Medicine 05/10/24 Linda Menjivar BLEACH CHLORINATOR.VEGETABLE WORKER [address] [place] [address] [facility] 05/10/24 Pinmaker Relationship Specialty Start Date End Date Luis Staley MD [address] [facility] [place] [address] PCP - General Family Medicine 08/27/13 Stephanie Darden APRN.VEGETABLE WORKER [address] [place] [address] Pelt Inspector Family Medicine 05/10/24 Linda Menjivar BLEACH CHLORINATOR.VEGETABLE WORKER [address] [place] [place] [address] Pelt Inspector Family Medicine 05/10/24 Pinmaker Relationship Specialty Start Date End Date Luis Staley MD [address] [place] [place] [address] PCP - General Family Medicine 08/27/13 Stephanie Darden BLEACH CHLORINATOR.VEGETABLE WORKER [address] [facility] [place] [place] [address] Pelt Inspector Family Medicine 05/10/24 Linda Menjivar BLEACH CHLORINATOR.VEGETABLE WORKER [address] [facility] [place] [address] Pelt Inspector Family Medicine 05/10/24 Pinmaker Relationship Specialty Start Date End Date Luis Staley MD [address] [place] [place] [address] PCP - General Family Medicine 08/27/13 Stephanie Darden APRN.VEGETABLE WORKER [address] [place] [address] Pelt Inspector Family Medicine 05/10/24 Linda Menjivar BLEACH CHLORINATOR.VEGETABLE WORKER [address] [place] [address] Pelt Inspector Family Medicine 05/10/24 Reason for Visit (unrecogniz ed section and [...] ECG W/LEAST 12 LDS W/I&R Rachel Mcmillan, BLEACH CHLORINATOR.VEGETABLE WORKER [address] [place] [address] [facility] [place] [id number] [place] [address] Referral ID Status Reason Start Date Expiration Date V isits Requested Visits Authorized [id number] Closed Auto-Generate d Referral 10/02/2023 10/01/2024 1 1 Reason Comments Radiology US Specialty Diagnoses / Procedures Referred By Contac t Referred To Contact US IMAGING Diagnoses Class 2 severe obesity with serious comorbidity and body mass index (BMI) of 35.0 to 35.9 in adult, unspecified obesity type (HCC) Procedures US ABD RIGHT UPPER QUADRANT US ABDOMINAL REAL TIME W/IMAGE LIMITED Rachel Mcmillan, BLEACH CHLORINATOR.VEGETABLE WORKER [address] [place] [address] [facility] [place] [address] Referral ID Status Reason Start Date Expiration Date V isits Requested Visits Authorized [id number] Closed Auto-Generate d Referral 10/02/2023 10/31/2024 1 [...] OFFICE/OUTPATIENT NEW HIGH MDM 60 MINUTES Rachel Mcmillan APRN.VEGETABLE WORKER [address] [place] [address] Referral ID Status Reason Start Date Expiration Date V isits Requested Visits Authorized [id number] Closed PCP Requested Referral 10/02/2023 12/31/2023 1 1 Reason Comments Insurance Authorization Reason Onset Date Comments Refill Request 02/04/2024 Reason Onset Date Comments Transition Of Care 03/23/2024 [facility] DISCHARGE 03/22 BOWEL OBSTRUCTION S Reason Comments Schedule Surgery Reason Comments Follow Up BMI discuss feasibil ity for LRYGB 03/20/24 s/p extensive crescencio Reason Comments Received Outside Medical Records Reason Comments Sleep Apnea 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 [employer] provides no warranty or guarantee of the accuracy or completeness of information in this document.
[2024-11-23] MEDS: Morphine 4 MG/ML Syringe IV (01:41)
[2024-11-23] MEDS: Ondansetron 4 MG/2 ML Vial IV ×2 (01:41→06:35)
[2024-11-23 02:41] LABS: Magnesium 1.8 mg/dL (1.5-2.2); Thyroid Stim Hormone (TSH) 0.928 uIU/mL (0.300-4.200)
[2024-11-23 03:19] LABS: Lactic Acid 1.6 mmol/L (0.0-2.0)
[2024-11-23 03:22] LABS: Mucous, Urine 0 SEEN /hpf (<or=2+); Red Blood Cells-Urine 0 SEEN /hpf (0-5)
[2024-11-23] MEDS: 0.9% Normal Saline (1000mL) 1,000 ML 125 ML IV (03:40)
[2024-11-23] MEDS: Ketorolac 15 MG/ML Vial IV (03:41)
[2024-11-23] MEDS: Pantoprazole Sodium 40 MG in 0.9% Normal Saline (100mL MB+) 100 ML 330 MG IV ×2 (03:41→22:07)
[2024-11-23 03:57] LABS: Color, Urine Straw (Yellow); Glucose, Dipstick 250 mg/dl (Normal); Ketone-Dipstick 15 mg/dl (Negative); Leukocyte Esterase-Dipstick Negative /ul (Negative); Nitrite-Dipstick Negative (Negative); Occult Blood-Urine Negative /ul (Negative); Protein-Dipstick 15 mg/dl (Negative); Specific Gravity, Urine 1.015 (1.002-1.030); Urine Bilirubin Dipstick Negative (Negative); Urine Clarity Clear (Clear); Urine Urobilinogen Normal (Normal)
[2024-11-23 04:08] LABS: Bacteria 1+ /hpf (None Seen); Squamous Epithelial Cells - UA 0-5 SEEN /hpf (5-10); White Blood Cells 0-5 SEEN /hpf (0-5)
--- NOTE | 2024-11-23 05:35 | RAD_ITS ---
PROCEDURE: ABDOMEN SINGLE VIEW (PORTABLE) 11/23/2024 REASON FOR EXAM: SUSPECTED SBO. TECHNIQUE: ABDOMEN SINGLE VIEW (PORTABLE) COMPARISON: 11/22/2024. FINDINGS: Mild decrease in the gaseous dilatation of the small bowel in the left upper quadrant. Normal visualized lung bases. There is no demonstrated free abdominal air. Normal visualized liver. Normal visualized spleen. Normal visualized kidneys. The soft tissue structures of the pelvis are unremarkable. Mild diffuse spondylosis. Contrast is noted in the bladder. RAD/Abdomen Single View (Portable) IMPRESSION: Mild decrease in the gaseous dilatation of the small bowel in the left upper qu adrant. [facility]
[2024-11-23 06:29] LABS: Absolute Lymphocyte Count 0.86 X10^3/uL (0.83-4.51); Absolute Neutrophil Count 11.7 X10^3/uL (2.0-7.7); Basophil# 0.04 X10^3/uL; Basophil% 0.3 % (0-1); Hematocrit 39.8 % (37-47); Hemoglobin 13.2 g/dL (12.0-15.0); Lymphocyte # 0.86 X10^3/ul (0.83-4.51); Lymphocyte % 6.6 % (19-41); Mean Corp Hgb Conc 33.2 g/dL (32-36); Mean Corpuscular Hgb 28.4 pg (27.0-32.0); Mean Corpuscular Volume 85.6 fL (81-99); Mean Platelet Vol. 11.2 fl (6.2-12.0); Monocyte# 0.29 X10^3/uL; Monocyte% 2.2 % (0-10); NRBC Flagged by Analyzer 0 % (0-5); Neutrophil # 11.71 X10^3/uL (2.7-7.7); Neutrophil % 90.4 % (47-70); Platelet Count 301 K/mm3 (150-450); RBC Distribution Width CV 12.5 % (11.6-14.6); RBC Distribution Width SD 38.8 fl (35.1-43.9); Red Blood Count 4.65 M/mm3 (4.2-5.4)
[2024-11-23] MEDS: Morphine 2 MG/ML Syringe IV ×2 (06:35→11:36)
[2024-11-23 06:44] LABS: ALB/GLOB Ratio 1.5 RATIO (0.9-2.4); AST(SGOT) 25 U/L (<=31); Alanine Aminotransfer ALT/SGPT 33 U/L (<=34); Albumin, Serum 4.1 g/dL (3.5-5.0); Alkaline Phosphatase 83 U/L (35-104); Anion Gap 13 (5-15); BUN 11 mg/dL (4-19); BUN/Creat Ratio 12.6 RATIO (10-20); Calcium,Total 9.1 mg/dL (7.6-11.0); Chloride 99 mmol/L (98-108); Creatinine, Serum 0.83 mg/dL (0.70-1.20); EST Glomerular Filtration Rate 83 (>60); Estimated Creatinine Clearance 79.12 ml/min (50-250); Globulin 2.8 g/dL (2.2-4.2); Glucose 323 mg/dL (70-99); Phosphorus 4.1 mg/dL (2.7-4.5); Potassium 4.3 mmol/L (3.3-5.1); Protein, Total 6.8 g/dL (5.9-8.4); Sodium Level 136 mmol/L (133-145); Total Bilirubin 0.49 mg/dL (0.00-1.30)
--- NOTE | 2024-11-23 07:18 | CON.PCM.SX_ITS ---
Assessment & Plan Assessment/Plan (1) Partial small bowel obstruction: (2) Nausea and vomiting: QUALIFIERS: Vomiting type: bilious vomiting Qualified Code(s): R 11.14 - Bilious vomiting (3) Abdominal pain: QUALIFIERS: Abdominal location: periumbilical Qualified Code(s): R10.33 - Periumbilical pain PLAN: Plan I have been consulted in conjunction with Dr. Guerrero. He has independently evaluated this patient. Patient is a 54 y/o F with a 1 day history of abdominal pain with associated nausea and vomiting. Personal history of small bowel obstruction in March 2024 which required surgical intervention. She has a history of rectal cancer that was treated at [facility]. CT scan demonstrates wall thickening of a segment of small bowel with dilated small bowel proximal to this. Patient was offered an NG tube in the ED and declined at that time. Patient will continue with IV hydration with fluids, NPO and conservative measures. I have also discussed completing small bowel follow- through today to better assess the area of concern on the CT scan. I have discussed with the patient that she may need an NG tube placed if she is unable to tolerate the contrast that she will be required to drink for the imaging. Patient is agreeable to the plan. If small bowel follow-through is abnormal, surgical intervention will need to be discussed with the patient. Patient has had the opportunity to ask and have questions answered. Patient verbally understands and agrees with the proposed plan. Thank you for allowing us to participate in this patient's care. HPI Consult Data Date of Consult: 11/23/24 HPI Narrative Reason for Consultation: Abdominal pain HPI Narrative: GEOFFREY TERRAZAS, is a 54 F who presents with a 1 day history of worsening abdominal pain, nausea, vomiting. Patient states nausea and abdominal pain started yesterday around 2:00 pm. She noted vomiting small bilious amounts prior to presenting to the ED. Patient states she had similar symptoms last March. At that time, she was diagnosed with a closed loop small bowel obstruction. Dr. Hendrix performed a laparoscopic lysis of adhesions to release small bowel obstruction on 03/20/24. Patient states since that time she had not had any concerns. She notes her last bowel movement was yesterday morning and was normal for her. She is not currently passing flatus. She describes her abdominal pain as crampy, intermittent waves. She states her last colonoscopy was approximately 2-3 years ago at [facility]. Patient has a history of rectal cancer 16 years ago. She notes having a surgical resection at that time. She also had chemotherapy following her resection. Patient is currently on Trulicity for diabetes for a couple of months now. She states her diabetes are somewhat controlled. She denies being around any sick contacts. She denies any recent picnics or buffet- style gatherings. She notes a history of sleep apnea. She denies any cardiac or pulmonary history. CT scan of the ab/pel was obtained in the ED and demonstrated: IMPRESSION: 1. There is wall thickening involving a segment of small bowel, which may be the result of infectious or inflammatory bowel disease, with neoplasm also possible. Dilated small bowel proximal to this, in the left upper quadrant of the abdomen, could be the result of a developing obstruction. Consider Surgical consultation. 2. Hepatic steatosis KUB from this morning demonstrated: IMPRESSION: Mild decrease in the gaseous dilatation of the small bowel in the left upper quadrant. [facility] Medical History Complete small bowel obstruction Obesity Diabetes mellitus, type 2 HLD (hyperlipidemia) Hypertension Colorectal cancer Home Medications ?Medication ?Instructions ?Recorded ?Last Taken ?Type lisinopril 10 mg tablet 10 mg PO DAILY #30 tabs 11/2 01/1603/18/24 Rx atorvastatin 40 mg tablet 40 mg PO QHS cholesterol 03/18/24 History dulaglutide 4.5 mg/0.5 mL 4.5 mg subcut QWEEK 11/22/24 Unknown History subcutaneous pen injector (Trulicity) Allergy/AdvReac Type Severity Reaction Status Date / Time oxaliplatin Allergy Anaphylaxis Verified 11/22/24 19:20 Family History Father Diabetes Hypertension ETOH abuse Surgical History S/P laparoscopy with lysis of adhesions History of colon resection Social History household members: spouse Smoking Status: Never smoker alcohol intake: never substance use type: does not use ROS Constitutional Constitutional: Reports systems reviewed and no addt'l complaints, except as documented Eyes Eyes: Reports systems reviewed and no addt'l complaints, except as documented ENT HEENT: Reports systems reviewed and no addt'l complaints, except as documented Cardiovascular Cardiovascular: Reports systems reviewed and no addt'l complaints, except as documented Respiratory/Chest Respiratory/Chest: Reports systems reviewed and no addt'l complaints, except as documented Gastrointestinal Gastrointestinal: Reports systems reviewed and no addt'l complaints, except as documented Genitourinary Genitourinary: Reports systems reviewed and no addt'l complaints, except as documented Musculoskeletal Musculoskeletal: Reports systems reviewed and no addt'l complaints, except as documented Integumentary Integumentary: Reports systems reviewed and no addt'l complaints, except as documented Neurologic Neurologic: Reports systems reviewed and no addt'l complaints, except as documented Psychiatric Psychiatric: Reports systems reviewed and no addt'l complaints, except as documented Endocrine Endocrinology: Reports systems reviewed and no addt'l complaints, except as documented Hematologic/Lymphatic Hematologic/Lymphatic: Reports systems reviewed and no addt'l complaints, except as documented Allergic/Immunologic Allergic/Immunologic: Reports systems reviewed and no addt'l complaints, except as documented Physical Exam Const alert and oriented x3 HEENT normocephalic and head/scalp atraumatic Eyes PERRL Neck full ROM Resp normal respiratory effort and clear to auscultation bilaterally Cardio regular rate and regular rhythm GI GI Narrative: Abdomen- soft, distended, pain with palpation to the left upper quadrant, slight tenderness to the epigastric region, otherwise negative exam. Hypoactive bowel sounds. no CVA tenderness Back/Spine no CVA tenderness Extremity normal to inspection Skin no rashes or lesions noted Neuro no focal motor deficits and no sensory deficits noted Psych mental status grossly normal, thought process normal and cooperative Lab / Micro Data 11/23/24 05:06 11/23/24 05:06 Labs: Laboratory Results - last 24 hr 11/22/24 20:14: WBC 11.9 H, RBC 4.74, Hgb 13.5, Hct 40.1, MCV 84.6, MCH 28.5, MCHC 33.7, RDW Std Deviation 37.2, RDW Coeff of Prema 12.1, Plt Count 292, MPV 10.7, Immature Gran % (Auto) 0.600, Neut % (Auto) 76.0 H, Lymph % (Auto) 16.3 L, Starke % (Auto) 5.4, Eos % (Auto) 1.3, Baso % (Auto) 0.4, Absolute Neuts (auto) 9.1 H, Absolute Lymphs (auto) 1.94, Nucleated RBC % 0, Sodium 138, Potassium 4.1, Chloride 98, Carbon Dioxide 25.6, Anion Gap 14, BUN 9, Creatinine 0.90, Estim Creat Clear Calc 74.87, Est GFR (MDRD) Non-Af 75, BUN/Creatinine Ratio 10.1, Glucose 223 H, Calcium 9.7, Magnesium 1.8, Total Bilirubin 0.57, AST 29, A LT 38 H, Alkaline Phosphatase 87, Total Protein 7.2, Albumin 4.2, Globulin 3.0, Albumin/Globulin Ratio 1.4, Lipase 28, TSH 0.928 11/23/24 02:50: Lactic Acid 1.6 11/23/24 03:15: Urine Color Straw, Urine Clarity Clear, Urine pH 8.0, Ur Specific S [place] 1.015, Urine Protein 15 H, Urine Glucose (UA) 250 H, Urine Ketones 15 H, Urine Occult Blood Negative, Urine Nitrite Negative, Urine Bilirubin Negative, Urine Urobilinogen Normal, Ur Leukocyte Esterase Negative, Urine RBC 0 SEEN, Urine WBC 0-5 SEEN, Ur Squamous Epith Cells 0-5 SEEN, Urine Bacteria 1+, Urine Mucus 0 SEEN 11/23/24 05:06: WBC 13.0 H, RBC 4.65, Hgb 13.2, Hct 39.8, MCV 85.6, MCH 28.4, MCHC 33.2, RDW Std Deviation 38.8, RDW Coeff of Prema 12.5, Plt Count 301, MPV 11.2, Immature Gran % (Auto) 0.500, Neut % (Auto) 90.4 H, Lymph % (Auto) 6.6 L, Starke % (Auto) 2.2, Eos % (Auto) 0.0, Baso % (Auto) 0.3, Absolute Neuts (auto) 11.7 H, Absolute Lymphs (auto) 0.86, Nucleated RBC % 0, Sodium 136, Potassium 4.3, Chloride 99, Carbon Dioxide 24.0, Anion Gap 13, BUN 11, Creatinine 0.83, Estim Creat Clear Calc 79.12, Est GFR (MDRD) Non-Af 83, BUN/Creatinine Ratio 12.6, Glucose 323 H, Calcium 9.1, Phosphorus 4.1, Total Bilirubin 0.49, AST 25, ALT 33, Alkaline Phosphatase 83, Total Protein 6.8, Albumin 4.1, Globulin 2.8, Albumin/Globulin Ratio 1.5 Imaging Radiology Impression KUB X-Ray 11/22/24 19:30 IMPRESSION: No radiographic evidence of bowel obstruction. Reading Location: [facility] Abdomen/Pelvis CT 11/22/24 21:02 IMPRESSION: 1. There is wall thickening involving a segment of small bowel, which may be the result of infectious or inflammatory bowel disease, with neoplasm also possible. Dilated small bowel proximal to this, in the left upper quadrant of the abdomen, could be the result of a developing obstruction. Consider Surgical consultation. 2. Hepatic steatosis. Reading Location: [facility] KUB X-Ray 11/23/24 05:35 IMPRESSION: Mild decrease in the gaseous dilatation of the small bowel in the left upper quadrant. Reading Location: [facility] Charges/Coding Visit Charges Inpatient E&M: 31676 Init Hosp L2
--- NOTE | 2024-11-23 09:37 | EKG12_ITS ---
Test Reason : pre op Blood Pressure : */* mmHG Vent. Rate : 81 BPM Atrial Rate : 81 BPM P-R Int : 146 ms QRS Dur : 70 ms QT Int : 372 ms P-R-T Axes : 55 66 48 degrees QTcB Int : 432 ms Normal sinus rhythm Normal ECG When compared with ECG of 21-Mar-2024 06:10, No significant change was found Confirmed by SPENCER LANDEROS MD ([id number]), web editor JESUSITA SOTO ([id number]) on 11/23/2024 1:55:23 PM Also confirmed by SPENCER LANDEROS MD ([id number]), web editor JESUSITA SOTO ([id number]) on 11/23/2024 1:56:28 PM Referred By: Confirmed By: SPENCER LANDEROS MD
[2024-11-23 10:07] LABS: Hemoglobin A1c 8.6 % (<=5.6)
--- NOTE | 2024-11-23 10:20 | CASEMGMT ---
CARIDAD GREEN Assessment: Face to Face with pt for initial transition planning/care coordination assessment. RN NORMA introduced self and role at [facility], pt voices understanding and consents to assessment. Pt is A&O x4 and answers all questions appropriately at this time. Pt lying in bed in no distress. Care providers, pharmacy, and demographics verified/updated. Admitting Dx: suspected SBO, n/v, abd pain Strata Score: 2 PCP:Andreina Specialists:Denies Preferred Pharmacy:[facility] Insurance: [employer] Pres[employer] Benefit: yes LNOK: Gregorio Wynne, ; Piper Wynne, dtr Living Arrangements: Pt lives with , two sons and dtr in a two story home with FFSU and 4-5 steps to enter. Pt reports she is I in ADL/IADLs and denies concerns at home. Transportation: Pt drives self and denies concerns with transportation. DME:CPAP, BGM with sufficient strips and lancets HHC/SNF: Denies hx of Pt states no concerns with going home at time of dc. Pt states no further concerns/needs. CM to follow. Advised pt to ask CM if any further questions/concerns/needs arise, voices understanding. Pt Goal: Home Plan: Home Bruno MCLEAN CM
--- NOTE | 2024-11-23 11:34 | PCM.HOSP.N ---
Hospitalist Note Patient admitted early this morning for return for small bowel obstruction. She was seen by general surgery this morning. She attempted to complete a small bowel follow-through study but had significant vomiting with this. Plan is to take the patient for surgery this afternoon around 3 PM. Patient was reporting mild abdominal pain currently that has improved thus far with pain medication. No other acute concerns. Full progress note to follow tomorrow.
[2024-11-23] MEDS: Insulin Lispro 100 UNIT/ML INSULN.PEN SC (11:37)
[2024-11-23] MEDS: 0.9% Saline Lock 10 ML Syringe IV ×2 (11:37→22:07)
[2024-11-23 11:45] LABS: Bedside Glucose 245 mg/dL (74-106)
[2024-11-23 14:49] LABS: Bedside Glucose 211 mg/dL (74-106)
[2024-11-23] MEDS: Lactated Ringers 1,000 ML 15 ML IV (14:49)
--- NOTE | 2024-11-23 14:55 | PRE.ANES_ITS ---
ASA Classification* ASA Classification ASA Classification: 2 and E Assessment & Plan Anesthesia* Anesthesia Assessment Anesthesia Assessment: Discussed sedation and/or anesthesia options, risks, benefits, and alternatives with patient/parents/legal guardian/POA. Questions invited. The patient/parents/legal guardian/POA seems to understand and agrees to proceed with anesthesia plan. Reviewed the physical assessment, medical history, allergy history and patient home medications list prior to surgery/procedure/anesthetic and documented any changes. Performed airway and anesthesia risk assessments. Anesthesia Type Anesthesia Type: General History Source History Obtained from:: Patient and Chart Anesthesia Focused Assessment* Temperature: 97.9 F Pulse Rate: 81 Blood Pressure: 154/80 Respiratory Rate: 18 Pulse Ox: 96 Oxygen Delivery Method: Room Air Airway Assessment Mouth opens: >3 cm Mallampati Score: II Teeth Condition: Intact Neck Range of motion (ROM): Limited ROM (Slight decrease in extension) Labs Anesthesia Preop lab: CBC WBC 13.0 K/mm3 (4.4-11.0) H 11/23/24 05:06 5 RBC 4.65 M/mm3 (4.2-5.4) 11/23/24 05:06 11/23/24 Hgb 13.2 g/dL (12.0-15.0) 11/23/24 05:06 11/23/24 Hct 39.8 % (37-47) 11/23/24 05:06 11/23/24 Plt Count 301 K/mm3 (150-450) 11/23/24 05:06 11/23/24 CHEMISTRY Potassium 4.3 mmol/L (3.3-5.1) 11/23/24 05:06 11/23/24 Sodium 136 mmol/L (133-145) 11/23/24 05:06 11/23/24 Magnesium 1.8 mg/dL (1.5-2.2) 11/22/24 20:14 11/22/24 Phosphorus 4.1 mg/dL (2.7-4.5) 11/23/24 05:06 11/23/24 BUN 11 mg/dL (4-19) 11/23/24 05:06 11/23/24 Creatinine 0.83 mg/dL (0.70-1.20) 11/23/24 05:06 11/23/24 Glucose 323 mg/dL (70-99) H 11/23/24 05:06 11/23/24 POC Glucose 211 mg/dL (74-106) H 11/23/24 14:25 11/23/24 TSH 0.928 uIU/mL (0.300-4.200) 11/22/24 20:14 06/08/24 COAG Pre-Assessment Diagnosis/Proposed Procedure Planned Operative Procedure(s): Exploratory laparoscopy, possible laparotomy, possible conversion to open, possible bowel resection. 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 When Was Last Pacemaker Check QUESTION #4 FULL TEXT: You/Your Family Experience fever (hyperthermia) with Anesthesia Last Oral Intake Last Oral intake: Last Oral Intake NPO since 00:00 11/23/24 14:35 Meds taken in AM with sips of water? Meds patient instructed to take am of surgery PONV PONV - logistics center manager: PONV - logistics center manager Female HX of Motion Sickness HX of N/V After Surgery Non-Smoker Duration of Surgery greater than 60 minutes Number of Risk Factors PONV Score Height & Weight Height & Weight: Anesthesia: Height & Weight Height 5 ft 4.96 in 11/23/24 14:35 Weight: 83.5 kg 11/23/24 14:35 Body Mass Index (BMI) 30.7 11/23/24 14:35 Respiratory Assessment Respiratory Assessment - logistics center manager: Respiratory Tract Infection Hx - logistics center manager Hx Respiratory Tract Infection No 11/23/24 03:32 STOP Sleep Apnea STOP Sleep Apnea - logistics center manager: STOP Sleep Apnea - logistics center manager Hx Hypertension Yes 11/23/24 12:11 Hx Sleep Apnea Yes 11/23/24 03:22 CPAP Yes 11/23/24 03:22 BIPAP No 11/23/24 03:22 Do you snore loudly (louder than talking or can be heard Do you often feel tired/ fatigued/ sleepy during daytime? Has anyone observed you stop breathing during sleep? STOP Results Positive 11/23/24 03:22 QUESTION #5 FULL TEXT : Do you snore loudly (louder than talking or can be heard through closed doors)? 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 Specify any problems Hx of Preganancy in last 3 N/A 11/23/24 03:22 Months Nurse Filling Out Transfusion CSIGNORIN 11/23/24 03:22 & Questions: Date: 11/23/24 11/23/24 03:22 Time: 03:23 11/23/24 03:22 Patient unable to answer at this time (ie. confused, unrespo /Reproduction History /Reproductive History - logistics center manager: /Reproductive Hx- logistics center manager Hx Now No 11/23/24 03:32 Gestational Age (in weeks): EDC: Hx Hx Para Hx Section SAB No 11/23/24 03:32 Active Medications Active Medications: Current Medications Generic Name Dose Route Start Last Admin Trade Name Freq PRN Reason Stop Dose Admin Glucagon 1 mg 11/23/24 08:01 Glucagon 1 Mg/Ml Syringe IM X1 PRN Hypoglycemia Protocol Hydralazine HCl 10 mg 11/23/24 08:02 Hydralazine 20 Mg/Ml Vial IV Q4H PRN PRN SBP GREATER THAN 170 Protocol Pantoprazole Sodium 40 mg/ 100 mls @ 330 mls/hr 11/23/24 00:48 11/23/24 04:14 Sodium Chloride IV Infused 2200 MELVIN Infusion Sodium Chloride 1,000 mls @ 125 mls/hr 11/23/24 00:50 11/23/24 09:41 IV 11/23/24 16:49 125 mls/hr .Q8H MELVIN Infusion Sodium Chloride 250 mls @ 15 mls/hr 11/23/24 02:59 IV .[id number] PRN Saline Flush Sodium Chloride 250 mls @ 15 mls/hr 11/23/24 02:59 IV .[id number] PRN Additional IVPB Infusion Dextrose 250 mls @ 0 mls/hr 11/23/24 08:01 Dextrose 10%-Water IV .Q0M PRN HYPOGLYCEMIA Protocol As Directed Cefotetan Disodium 2 gm/ 100 mls @ 200 mls/hr 11/23/24 16:30 Sodium Chloride IV 11/23/24 16:59 INTRAOP ONE Lactated Ringer's 1,000 mls @ 15 mls/hr 11/23/24 14:45 11/23/24 14:49 IV 15 mls/hr .Q48H MELVIN Administration Insulin Human Lispro 0 unit 11/23/24 12:00 11/23/24 11:37 Insulin Lispro 100 Unit/Ml Insuln.Pen SC 4 units Q6 MELVIN Administration Protocol Ketorolac Tromethamine 15 mg 11/23/24 02:57 11/23/24 03:41 Ketorolac 15 Mg/Ml Vial IV 11/26/24 02:58 15 mg Q8H PRN PRN Administration Pain 1-5/10 or Fever Morphine Sulfate 2 mg 11/23/24 02:57 11/23/24 11:36 Morphine 2 Mg/Ml Syringe IV 2 mg Q4H PRN PRN Administration Pain Score 6-10 Ondansetron HCl 4 mg 11/23/24 08:03 Ondansetron 4 Mg/2 Ml Vial IV Q8H PRN PRN NAUSEA/VOMITING Promethazine HCl 12.5 mg 11/23/24 02:57 Promethazine 25 Mg/Ml Syringe IM Q4H PRN PRN BREAKTHROUGH NAUSEA Sodium Chloride 10 - 40 ml 11/23/24 02:59 11/23/24 11:37 0.9% Saline Lock 10 Ml Syringe IV 10 ml UD PRN Administration SALINE FLUSH PFSH Medical History Complete small bowel obstruction Obesity Diabetes mellitus, type 2 HLD (hyperlipidemia) Hypertension Colorectal cancer Home Medications ?Medication ?Instructions ?Recorded ?Last Taken ?Type lisinopril 10 mg tablet 10 mg PO DAILY #30 tabs 04/0303/18/24 Rx atorvastatin 40 mg tablet 40 mg PO QHS cholesterol 03/18/24 History dulaglutide 4.5 mg/0.5 mL 4.5 mg subcut QWEEK 11/22/24 Unknown History subcutaneous pen injector (Trulicity) Allergy/AdvReac Type Severity Reaction Status Date / Time oxaliplatin Allergy Anaphylaxis Verified 11/22/24 19:20 Family History Father Diabetes Hypertension ETOH abuse Surgical History S/P laparoscopy with lysis of adhesions History of colon resection Social History household members: spouse Smoking Status: Never smoker alcohol intake: never substance use type: does not use Review of Systems (Anesthesia) ROS Narrative System reviewed and no additional complaints, except as documented.
[2024-11-23] MEDS: Cefotetan 2 GM in 0.9% Normal Saline (100mL MB+) 100 ML IV (18:58)
[2024-11-23] MEDS: Bupiv/Epi 0.25% 30 ML Vial (20:26)
--- NOTE | 2024-11-23 20:31 | PCM.OPRPT ---
Operative Report (Standard) Operative Information Date of Procedure: 11/23/24 Pre-Operative Diagnosis: Small bowel obstruction Post-Operative Diagnosis: Small bowel obstruction Surgery/Procedure Performed: Exploratory laparoscopy converted to laparotomy with small bowel lysis of adhesions chief design engineer: Yes Grocery Caddy: Libby Marcial Tasks completed by sampler first: Opening, Closing and Retracting Type of Anesthesia: General/Regional RN Documented Start/Stop Times: Operation Date: 11/23/24 16:30 Case Time Into Pre-Op 11/23/24 14:41 Out of Pre-Op 11/23/24 18:39 Anesthesia Start 11/23/24 18:42 Into Room 11/23/24 18:42 Procedure Start 11/23/24 19:01 Procedure Start Time: 19:01 Procedure Stop Time: 20:35 Select all DRAINS/GRAFTS/IMPLANTS that apply: None Estimated Blood Loss: 10 Specimen collected: No Description of surgery: Patient was brought to the operating room and general anesthesia was induced. The abdomen was prepped and draped in usual sterile fashion. An incision was made in the right upper quadrant and the abdomen was entered using Visiport technique. The abdomen was insufflated to 15 mmHg. It was inspected and there was dense scar tissue throughout the abdomen. There was especially dense scar tissue at her midline incision. The scar tissue at the midline incision was taken down bluntly after placing another 5 mm port in the right lower quadrant. The bowel was inspected and there were 2 dense of adhesions to do anything laparoscopically. Her midline incision was reopened using scalpel and electrocautery dissection until the fascia was reached and divided. A wound protector was placed. Next over the course of an hour the adhesions were taken down to the small bowel. The area that was thickened was identified and there was edema around it and it had a tight loop. I freed this up in the trapped enteric contents were able to pass freely. Next the abdomen was irrigated and suctioned dry. The wound protector was removed. The midline fascia was closed with a running #1 PDS suture from the top and bottom meeting in the middle. Local was injected. The skin was stapled at the midline. The two 5 mm ports were closed with 4-0 Monocryl suture. Steri-Strips were applied to these port sites. Dressing was applied to the main incision. Patient was extubated and brought to PACU in stable condition. Surgical Findings: Dense adhesions throughout the abdomen Complications Complications: No Admit VTE Documentation VTE Mechan Device Prophylaxis: SCD's
--- NOTE | 2024-11-23 20:50 | PCM.POST.ANE ---
Anesthesia: Postop Eval I Current Vital Signs Temperature: 98.2 F Pulse Rate: 84 Blood Pressure: 164/85 Respiratory Rate: 16 Pulse Ox: 93 Oxygen Delivery Method: Nasal Cannula Oxygen Flow Rate (L/min): 3 Assessment Airway patent: Yes Spontaneous unlabored respirations: Yes Mental status: Asleep nausea: No Vomiting: No Anesthesia Complication: No Fluid Hydration Crystalloid volume administer (ml): 800 Total IV fluid infused: 800 Progress Note Anesthesia document: Postop Eval 1 completed: Yes
[2024-11-23 21:13] LABS: Bedside Glucose 249 mg/dL (74-106)
[2024-11-23] MEDS: 0.9% Normal Saline (250mL Bag) 250 ML 15 ML IV (22:07)
--- NOTE | 2024-11-23 22:40 | POSTOPAN2_ITS ---
Anesthesia Postop Eval I Sum Postop Eval Completion status Anesthesia document: Postop Eval 1 completed: Yes Anesthesia Postop Eval I Summary Anesthesia Postop Eval I Summary: Anesthesia Postop Eval I: Assessment Summary Airway patent Yes 11/23/24 20:56 HAND [email or web address] Spontaneous unlabored Yes 11/23/24 20:56 HAND [email or web address].CSIR respirations Mental status Asleep 11/23/24 20:56 HAND [email or web address].CSIR nausea No 11/23/24 20:56 HAND [email or web address].CSIR Vomiting No 11/23/24 20:56 HAND [email or web address].CSIR Anesthesia Postop Eval I: Fluid Summary Crystalloid volume administer 800 11/23/24 20:56 HAND [email or web address].CSIR (ml) Colloids volume administered ( ml) Blood Product volume administered (ml) Total IV fluid infused 800 11/23/24 20:56 HAND [email or web address].CSIR Anesthesia Postop Eval I: Summary Notes Anesthesia Complication No 11/23/24 20:56 HAND [email or web address].CSIR Anesthesia Complication Comment: Post-operative progress note Anesthesia: Postop Eval II Evaluation Mental status: Awake and Calm Pain Level: 1 nausea: No Vomiting: No Complications Anesthesia Complication: No
--- NOTE | 2024-11-23 22:40 | PCM.POSTANE2 ---
Anesthesia Postop Eval I Sum Postop Eval Completion status Anesthesia document: Postop Eval 1 completed: Yes Anesthesia Postop Eval I Summary Anesthesia Postop Eval I Summary: Anesthesia Postop Eval I: Assessment Summary Airway patent Yes 11/23/24 20:56 EVENT OPERATIONS MANAGER.CSIR Spontaneous unlabored Yes 11/23/24 20:56 EVENT OPERATIONS MANAGER.CSIR respirations Mental status Asleep 11/23/24 20:56 EVENT OPERATIONS MANAGER.CSIR nausea No 11/23/24 20:56 EVENT OPERATIONS MANAGER.CSIR Vomiting No 11/23/24 20:56 EVENT OPERATIONS MANAGER.CSIR Anesthesia Postop Eval I: Fluid Summary Crystalloid volume administer 800 11/23/24 20:56 EVENT OPERATIONS MANAGER.CSIR (ml) Colloids volume administered ( ml) Blood Product volume administered (ml) Total IV fluid infused 800 11/23/24 20:56 EVENT OPERATIONS MANAGER.CSIR Anesthesia Postop Eval I: Summary Notes Anesthesia Complication No 11/23/24 20:56 EVENT OPERATIONS MANAGER.CSIR Anesthesia Complication Comment: Post-operative progress note Anesthesia: Postop Eval II Evaluation Mental status: Awake and Calm Pain Level: 1 nausea: No Vomiting: No Complications Anesthesia Complication: No
[2024-11-24] VITALS (7 sets, daily range): BP systolic 132–185; BP diastolic 70–85; PULSE 89–103; RESP 16–18; TEMP 36.6–36.9; O2SAT 93–95; BMI 30.9
[2024-11-24] MEDS: Insulin Lispro 100 UNIT/ML INSULN.PEN SC ×5 (00:17→22:53)
[2024-11-24 00:42] LABS: Bedside Glucose 291 mg/dL (74-106)
[2024-11-24 05:49] LABS: Hemoglobin 12.9 g/dL (12.0-15.0); Mean Corp Hgb Conc 33.1 g/dL (32-36); Mean Corpuscular Hgb 28.8 pg (27.0-32.0); Mean Corpuscular Volume 87.1 fL (81-99); Mean Platelet Vol. 10.5 fl (6.2-12.0); Platelet Count 276 K/mm3 (150-450); RBC Distribution Width CV 12.7 % (11.6-14.6); RBC Distribution Width SD 40.1 fl (35.1-43.9); Red Blood Count 4.48 M/mm3 (4.2-5.4); White Blood Count 13.3 K/mm3 (4.4-11.0)
[2024-11-24] MEDS: Ketorolac 15 MG/ML Vial IV ×2 (06:12→23:04)
[2024-11-24 06:36] LABS: Anion Gap 11 (5-15); BUN 12 mg/dL (4-19); BUN/Creat Ratio 12.7 RATIO (10-20); Calcium,Total 8.5 mg/dL (7.6-11.0); Carbon Dioxide 23.1 mmol/L (21.0-32.0); Chloride 105 mmol/L (98-108); Creatinine, Serum 0.95 mg/dL (0.70-1.20); EST Glomerular Filtration Rate 71 (>60); Estimated Creatinine Clearance 69.46 ml/min (50-250); Glucose 294 mg/dL (70-99); Potassium 4.5 mmol/L (3.3-5.1); Sodium Level 139 mmol/L (133-145)
--- NOTE | 2024-11-24 07:15 | PN.SURG_ITS ---
Subjective Subjective Patient reports he is comfortable this morning. Denies any nausea or vomiting Objective Data Objective Data Vital Signs: Vital Signs Temp Pulse Resp BP Pulse Ox O2 Del Method O2 Flow Rate 98.1 F 93 18 132/70 H 94 Nasal Cannula 2 11/24/24 06:14 11/24/24 06:14 11/24/24 06:14 11/24/24 06:14 11/24/24 06:14 11/24/24 06:14 11/24/24 06:14 Oxygen Flow Rate (L/min) 2 Oxygen Delivery Method Nasal Cannula Weight: 185 lb 13.595 oz Body Mass Index (BMI) 30.9 Intake & Output: Intake and Output for Last 24 Hours 11/22/24 11/23/24 11/24/24 23:59 23:59 23:59 Intake Total 1200.00 / 1200.00 0 / 0 Output Total 710 / 710 300 / 300 Balance 490.00 / 490.00 -300 / -300 Lab / Micro Data 11/24/24 05:36 11/24/24 05:36 Labs: Laboratory Results - last 24 hr 11/23/24 05:06: Hemoglobin A1c 8.6 H 11/23/24 11:27: POC Glucose 245 H 11/23/24 14:25: POC Glucose 211 H 11/23/24 20:55: POC Glucose 249 H 11/24/24 00:17: POC Glucose 291 H 11/24/24 05:36: WBC 13.3 H, RBC 4.48, Hgb 12.9, Hct 39.0, MCV 87.1, MCH 28.8, MCHC 33.1, RDW Std Deviation 40.1, RDW Coeff of Prema 12.7, Plt Count 276, MPV 10.5, Sodium 139, Potassium 4.5, Chloride 105, Carbon Dioxide 23.1, Anion Gap 11, BUN 12, Creatinine 0.95, Estim Creat Clear Calc 69.46, Est GFR (MDRD) Non-Af 71, BUN/Creatinine Ratio 12.7, Glucose 294 H, Calcium 8.5 Physical Exam Const oriented x3 and no apparent distress Resp normal respiratory effort GI soft to palpation Palpation: tender Extremity normal to inspection Assessment & Plan Assessment/Plan (1) Partial small bowel obstruction: PLAN: Patient had laparotomy yesterday for small bowel obstruction. She had extensive lysis of adhesions so I expect postoperative ileus. Continue n.p.o. and IV fluids until bowel function. Rafael Guerrero MD Pager: [facility] [address] [place] [address] [address] [place] [address] Office:
[2024-11-24 07:23] LABS: Bedside Glucose 274 mg/dL (74-106)
[2024-11-24] MEDS: 0.9% Normal Saline (1000mL) 1,000 ML 100 ML IV ×2 (08:08→17:21)
--- NOTE | 2024-11-24 12:10 | PN.HOSP_ITS ---
Reason for Visit Reason for Visit: Diagnoses Obesity, class 1 (11/23/24) Hypertensive urgency (11/23/24) Partial intestinal obstruction, unspecified as to cause (11/23/24) Fatty (change of) liver, not elsewhere classified (11/23/24) Periumbilical pain (11/23/24) Unspecified abdominal pain (11/23/24) Bilious vomiting (11/23/24) Nausea with vomiting, unspecified (11/23/24) Acquired absence of other specified parts of digestive tract (11/23/24) Other specified postprocedural states (11/23/24) Subjective Subjective Saw patient at bedside this morning. Patient was sitting back comfortably in bedside chair, in no acute distress. Was seen by surgery this morning who is keeping her n.p.o. until she begins to pass flatus. She reports mild abdominal distention but no pain or discomfort this morning. No other new concerns today. Objective Data Objective Data Vital Signs: Vital Signs Temp Pulse Resp BP Pulse Ox O2 Del Method O2 Flow Rate 98.1 F 93 18 132/70 H 93 Nasal Cannula 2 11/24/24 06:14 11/24/24 06:14 11/24/24 06:14 11/24/24 06:14 11/24/24 06:40 11/24/24 06:40 11/24/24 06:40 Oxygen Flow Rate (L/min) 2 Oxygen Delivery Method Nasal Cannula Weight: 84.3 kg Body Mass Index (BMI) 30.9 Intake & Output: Intake and Output for Last 24 Hours 11/22/24 11/23/24 11/24/24 23:59 23:59 23:59 Intake Total 1200.00 / 1200.00 248.25 / 248.25 Output Total 710 / 710 300 / 300 Balance 490.00 / 490.00 -51.75 / -51.75 Lab / Micro Data 11/24/24 05:36 11/24/24 05:36 Labs: Laboratory Results - last 24 hr 11/23/24 14:25: POC Glucose 211 H 11/23/24 20:55: POC Glucose 249 H 11/24/24 00:17: POC Glucose 291 H 11/24/24 05:36: WBC 13.3 H, RBC 4.48, Hgb 12.9, Hct 39.0, MCV 87.1, MCH 28.8, MCHC 33.1, RDW Std Deviation 40.1, RDW Coeff of Prema 12.7, Plt Count 276, MPV 10.5, Sodium 139, Potassium 4.5, Chloride 105, Carbon Dioxide 23.1, Anion Gap 11, BUN 12, Creatinine 0.95, Estim Creat Clear Calc 69.46, Est GFR (MDRD) Non-Af 71, BUN/Creatinine Ratio 12.7, Glucose 294 H, Calcium 8.5 11/24/24 06:24: POC Glucose 274 H Physical Exam Const alert, oriented x3 and no apparent distress Constitutional Narrative: Middle-aged female, class I obesity, sitting back comfortably in bedside chair, conversing normally, in no acute distress. General Appearance: cooperative and comfortable HEENT normocephalic, head/scalp atraumatic, hearing grossly normal bilaterally, nasal mucous membranes and turbinates normal and moist oral mucous membranes Eyes PERRL, EOMs intact bilaterally and conjunctivae normal Neck full ROM Chest inspection of chest normal Resp normal respiratory effort, normal air movement, no use of accessory muscles and clear to auscultation bilaterally Cardio regular rate, regular rhythm, no murmurs and peripheral pulses 2+ throughout GI GI Narrative: Abdomen mildly distended but otherwise soft and nontender to palpation. Back/Spine normal ROM Extremity normal to inspection, full ROM and no pedal edema Skin no rashes or lesions noted Psych mental status grossly normal Assessment & Plan Assessment/Plan (1) Partial small bowel obstruction: PLAN: Plan Patient is a 54-year-old female who presented to [facility] ED on 11/23/2024 with abdominal pain and nausea with vomiting. 1. Partial small bowel obstruction, history of SBO s/p laparoscopy with lysis of adhesions in 2023, history of colorectal cancer s/p resection ? General Surgery following. Presented with abdominal pain and nausea with vomiting. CT abdomen pelvis showed wall thickening involving segment of small bowel with dilated small bowel proximal to this and left upper quadrant concerning for partial SBO. Refused NG placement in the ED. Unable to complete small bowel follow-through due to vomiting. S/p ex lap converted to open laparotomy with small bowel lysis of adhesions. Patient tolerated procedure well. Per surgery, continue n.p.o. status until patient passes flatus. Diet will be advanced per surgery recommendations. 2. Hypertension, hyperlipidemia ? Continue home statin. Holding home lisinopril for now, restart as able. 3. Type 2 diabetes mellitus ? A1c 8.6% on admit. Only on dulaglutide at home. Blood sugars elevated to the high 200s postoperatively. Treating with Lantus 15 units daily and sliding scale insulin with meals every 6 hours for now, adjust as needed. 4. Class I obesity ? BMI 31 on admit. Complicates hospital course, care and prognosis. DVT prophylaxis: Lovenox CODE STATUS: Full code, verified Expected disposition: Home, TBD Total clinical time spent by myself addressing the patient's medical issues, reviewing all the data, and collaborating with patient's care team: 35 minutes. Charges/Coding Visit Charges Inpatient E&M: 60449 Subs Hosp L2
[2024-11-24] MEDS: Insulin Glargine-YFGN 100 UNIT/ML Pen 15 UNIT SC (12:25)
[2024-11-24 12:42] LABS: Bedside Glucose 249 mg/dL (74-106)
[2024-11-24 21:44] LABS: Bedside Glucose 178 mg/dL (74-106)
[2024-11-24] MEDS: Pantoprazole Sodium 40 MG in 0.9% Normal Saline (100mL MB+) 100 ML 330 MG IV (22:37)
[2024-11-24] MEDS: hydrALAZINE 20 MG/ML Vial 10 MG IV (22:53)
[2024-11-24] MEDS: 0.9% Saline Lock 10 ML Syringe IV (23:04)
[2024-11-24 23:18] LABS: Bedside Glucose 153 mg/dL (74-106)
[2024-11-25 03:50] VITALS: BP 145/69; PULSE 70; RESP 16; TEMP 36.7; O2SAT 98
[2024-11-25] MEDS: 0.9% Normal Saline (1000mL) 1,000 ML 100 ML IV (04:42)
[2024-11-25 05:30] VITALS: BP 145/69; PULSE 70; RESP 16; TEMP 36.7; O2SAT 98
[2024-11-25 05:49] VITALS: BMI 30.7
[2024-11-25] MEDS: Insulin Lispro 100 UNIT/ML INSULN.PEN SC ×2 (06:23→11:36)
[2024-11-25 06:56] LABS: Bedside Glucose 158 mg/dL (74-106)
[2024-11-25 06:57] LABS: Absolute Lymphocyte Count 2.13 X10^3/uL (0.83-4.51); Absolute Neutrophil Count 7.8 X10^3/uL (2.0-7.7); Basophil# 0.02 X10^3/uL; Basophil% 0.2 % (0-1); Eosinophil# 0.04 X10^3/uL; Eosinophils% 0.4 % (0-5); Hematocrit 34.2 % (37-47); Hemoglobin 11.3 g/dL (12.0-15.0); Lymphocyte # 2.13 X10^3/ul (0.83-4.51); Mean Corpuscular Volume 87.9 fL (81-99); Mean Platelet Vol. 10.7 fl (6.2-12.0); Monocyte% 4.7 % (0-10); NRBC Flagged by Analyzer 0 % (0-5); Neutrophil # 7.84 X10^3/uL (2.7-7.7); Neutrophil % 73.7 % (47-70); Platelet Count 230 K/mm3 (150-450); RBC Distribution Width SD 41.5 fl (35.1-43.9); Red Blood Count 3.89 M/mm3 (4.2-5.4); White Blood Count 10.6 K/mm3 (4.4-11.0)
[2024-11-25 07:30] LABS: Anion Gap 11 (5-15); BUN 14 mg/dL (4-19); BUN/Creat Ratio 17.4 RATIO (10-20); Calcium,Total 8.2 mg/dL (7.6-11.0); Carbon Dioxide 22.7 mmol/L (21.0-32.0); Chloride 110 mmol/L (98-108); EST Glomerular Filtration Rate 87 (>60); Estimated Creatinine Clearance 82.18 ml/min (50-250); Glucose 156 mg/dL (70-99); Potassium 3.9 mmol/L (3.3-5.1); Sodium Level 143 mmol/L (133-145)
[2024-11-25 08:15] VITALS: BP 123/61; PULSE 75; RESP 16; TEMP 36.6; O2SAT 97
--- NOTE | 2024-11-25 08:20 | PN.SURG_ITS ---
Subjective Subjective Patient evaluated resting comfortably in the chair. She notes very minimal amount of incisional discomfort. She denies any nausea, vomiting, fever. She notes passing flatus over night. Negative bowel movement. Objective Data Objective Data Vital Signs: Vital Signs Temp Pulse Resp BP Pulse Ox O2 Del Method O2 Flow Rate 97.8 F 75 16 123/61 H 97 Room Air 2 11/25/24 08:15 11/25/24 08:15 11/25/24 08:15 11/25/24 08:15 11/25/24 08:15 11/25/24 08:15 11/24/24 06:40 Oxygen Flow Rate (L/min) 2 Oxygen Delivery Method Room Air Weight: 184 lb 8.43 oz Body Mass Index (BMI) 30.7 Intake & Output: Intake and Output for Last 24 Hours 11/23/24 11/24/24 11/25/24 23:59 23:59 23:59 Intake Total 1200.00 / 1200.00 1519.92 / 1519.92 1000 / 1000 Output Total 710 / 710 300 / 300 Balance 490.00 / 490.00 1219.92 / 1219.92 1000 / 1000 Lab / Micro Data 11/25/24 06:26 11/25/24 06:26 Labs: Laboratory Results - last 24 hr 11/24/24 12:23: POC Glucose 249 H 11/24/24 16:47: POC Glucose 178 H 11/24/24 22:52: POC Glucose 153 H 11/25/24 06:22: POC Glucose 158 H 11/25/24 06:26: WBC 10.6, RBC 3.89 L, Hgb 11.3 L, Hct 34.2 L, MCV 87.9, MCH 29.0, MCHC 33.0, RDW Std Deviation 41.5, RDW Coeff of Prema 13.0, Plt Count 230, MPV 10.7, Immature Gran % (Auto) 1.000 H, Neut % (Auto) 73.7 H, Lymph % (Auto) 20.0, [place] % (Auto) 4.7, Eos % (Auto) 0.4, Baso % (Auto) 0.2, Absolute Neuts (auto) 7.8 H, Absolute Lymphs (auto) 2.13, Nucleated RBC % 0, Sodium 143, Potassium 3.9, Chloride 110 H, Carbon Dioxide 22.7, Anion Gap 11, BUN 14, Creatinine 0.80, Estim Creat Clear Calc 82.18, Est GFR (MDRD) Non-Af 87, BUN/Creatinine Ratio 17.4, Glucose 156 H, Calcium 8.2 Physical Exam GI GI Narrative: Abdomen- soft, nontender. Incisions c/d/i. No erythema or infection noted. Hypoactive bowel sounds. Assessment & Plan Assessment/Plan (1) Partial small bowel obstruction: PLAN: I am following this patient in conjunction with Dr. Marion in Dr. Guerrero's absence. He has independently evaluated this patient. Labs reviewed. WBC decreased to normal Will start clear liquid diet without carbonation Patient to remain on clear liquids until bowel movement has occurred Patient is progressing very well postoperatively We will continue to monitor this patient Charges/Coding Visit Charges Inpatient E&M: 98249 Subs Hosp L1 (no charge; post-op)
[2024-11-25] MEDS: Insulin Glargine-YFGN 100 UNIT/ML Pen 15 UNIT SC (08:39)
[2024-11-25] MEDS: Enoxaparin 40 MG/0.4 ML Syringe SC (08:39)
[2024-11-25 11:55] LABS: Bedside Glucose 210 mg/dL (74-106)
[2024-11-25 14:34] VITALS: BP 152/64; PULSE 85; RESP 16; TEMP 36.4; O2SAT 96
--- NOTE | 2024-11-25 16:32 | PN.HOSP_ITS ---
Reason for Visit Reason for Visit: Diagnoses Obesity, class 1 (11/23/24) Hypertensive urgency (11/23/24) Partial intestinal obstruction, unspecified as to cause (11/23/24) Fatty (change of) liver, not elsewhere classified (11/23/24) Periumbilical pain (11/23/24) Unspecified abdominal pain (11/23/24) Bilious vomiting (11/23/24) Nausea with vomiting, unspecified (11/23/24) Acquired absence of other specified parts of digestive tract (11/23/24) Other specified postprocedural states (11/23/24) Objective Data Objective Data Vital Signs: Vital Signs Temp Pulse Resp BP Pulse Ox O2 Del Method O2 Flow Rate 97.6 F L 85 16 152/64 H 96 Room Air 2 11/25/24 14:34 11/25/24 14:34 11/25/24 14:34 11/25/24 14:34 11/25/24 14:34 11/25/24 14:34 11/24/24 06:40 Oxygen Flow Rate (L/min) 2 Oxygen Delivery Method Room Air Weight: 184 lb 8.43 oz Body Mass Index (BMI) 30.7 Intake & Output: Intake and Output for Last 24 Hours 11/23/24 11/24/24 11/25/24 23:59 23:59 23:59 Intake Total 1200.00 / 1200.00 1519.92 / 1519.92 1698.33 / 1698.33 Output Total 710 / 710 300 / 300 Balance 490.00 / 490.00 1219.92 / 1219.92 1698.33 / 1698.33 Lab / Micro Data 11/25/24 06:26 11/25/24 06:26 Labs: Laboratory Results - last 24 hr 11/24/24 16:47: POC Glucose 178 H 11/24/24 22:52: POC Glucose 153 H 11/25/24 06:22: POC Glucose 158 H 11/25/24 06:26: WBC 10.6, RBC 3.89 L, Hgb 11.3 L, Hct 34.2 L, MCV 87.9, MCH 29.0, MCHC 33.0, RDW Std Deviation 41.5, RDW Coeff of Prema 13.0, Plt Count 230, MPV 10.7, Immature Gran % (Auto) 1.000 H, Neut % (Auto) 73.7 H, Lymph % (Auto) 20.0, [place] % (Auto) 4.7, Eos % (Auto) 0.4, Baso % (Auto) 0.2, Absolute Neuts (auto) 7.8 H, Absolute Lymphs (auto) 2.13, Nucleated RBC % 0, Sodium 143, Potassium 3.9, Chloride 110 H, Carbon Dioxide 22.7, Anion Gap 11, BUN 14, Creatinine 0.80, Estim Creat Clear Calc 82.18, Est GFR (MDRD) Non-Af 87, BUN/Creatinine Ratio 17.4, Glucose 156 H, Calcium 8.2 11/25/24 11:35: POC Glucose 210 H Physical Exam Narrative Seen and examined Patient is passing gas but has not moved bowel yet. She feels like gurgling sound in the bowel. No fever. Blood pressure acceptable. Physical exam General: Alert, Oriented x3, Cooperative HEENT: Atraumatic, PERRLA, EOMI, Normocephalic. Oral: No Gingival or Mucosal Lesions/ Ulcerations Neck: Supple, No JVD, Negative Carotid Bruits Chest wall/Lungs: Air entry equal in bilateral lung bases. No crepitation/rhonchi Cardiovascular: Regular rate and rhythm, Normal S1,S2, No M/G/R Abdomen: Bowel Sounds sluggish, Soft, Non Tender, Non-Distended. Lap ports dressings dry. : No dysuria. No renal angle tenderness. No suprapubic tenderness. Extremities: No edema, Capillary Refill Less than 3 Seconds Skin: No rashes, No breakdown Musculoskeletal: No Tenderness to Palpation of Joints or Extremities Neurological: Cranial nerves II-XII grossly intact, DTR 2+/4. No acute focal neurological deficit. Psych/Mental Status: Normal Affect, Appropriate. Assessment & Plan Assessment/Plan (1) Partial small bowel obstruction: PLAN: Plan Patient is a 54-year-old female who presented to [facility] ED on 11/23/2024 with abdominal pain and nausea with vomiting. 1. Partial small bowel obstruction, history of SBO s/p laparoscopy with lysis of adhesions in 2023, history of colorectal cancer s/p resection ? General Surgery following. Presented with abdominal pain and nausea with vomiting. CT abdomen pelvis showed wall thickening involving segment of small bowel with dilated small bowel proximal to this and left upper quadrant concerning for partial SBO. Refused NG placement in the ED. Unable to complete small bowel follow-through due to vomiting. On 11/23, s/p ex lap converted to open laparotomy with small bowel lysis of adhesions. 11/25: Patient passing flatus but did not had bowel movement. She had extensive laparoscopic surgery. Trial of sips of clear liquid diet. 2. Hypertension, hyperlipidemia ? Continue home statin. Holding home lisinopril for now, restart as able. 3. Type 2 diabetes mellitus ? A1c 8.6% on admit. Only on dulaglutide at home. Blood sugars elevated to the high 200s postoperatively. Treating with Lantus 15 units daily and sliding scale insulin with meals every 6 hours for now, adjust as needed. 11/25: Glucose 110 and BMP. 150s to 170s. 4. Class I obesity ? BMI 31 on admit. Complicates hospital course, care and prognosis. DVT prophylaxis: Lovenox CODE STATUS: Full code, verified Expected disposition: Home, TBD Laboratory Results 11/24/24 16:47: POC Glucose 178 H 11/24/24 22:52: POC Glucose 153 H 11/25/24 06:22: POC Glucose 158 H 11/25/24 06:26: WBC 10.6, RBC 3.89 L, Hgb 11.3 L, Hct 34.2 L, MCV 87.9, MCH 29.0, MCHC 33.0, RDW Std Deviation 41.5, RDW Coeff of Prema 13.0, Plt Count 230, MPV 10.7, Immature Gran % (Auto) 1.000 H, Neut % (Auto) 73.7 H, Lymph % (Auto) 20.0, [place] % (Auto) 4.7, Eos % (Auto) 0.4, Baso % (Auto) 0.2, Absolute Neuts (auto) 7.8 H, Absolute Lymphs (auto) 2.13, Nucleated RBC % 0, Sodium 143, Potassium 3.9, Chloride 110 H, Carbon Dioxide 22.7, Anion Gap 11, BUN 14, Creatinine 0.80, Estim Creat Clear Calc 82.18, Est GFR (MDRD) Non-Af 87, BUN/Creatinine Ratio 17.4, Glucose 156 H, Calcium 8.2 11/25/24 11:35: POC Glucose 210 H Charges/Coding Visit Charges Inpatient E&M: 33837 Subs Hosp L2
[2024-11-25 17:07] LABS: Bedside Glucose 119 mg/dL (74-106)
[2024-11-25] MEDS: Pantoprazole Sodium 40 MG in 0.9% Normal Saline (100mL MB+) 100 ML 330 MG IV (22:12)
[2024-11-25] MEDS: Atorvastatin Calcium 40 MG Tablet PO (22:13)
[2024-11-25 22:18] VITALS: BP 173/71; PULSE 83; RESP 16; TEMP 36.8; O2SAT 97
[2024-11-25 22:25] VITALS: BP 173/71; PULSE 83
[2024-11-25] MEDS: hydrALAZINE 20 MG/ML Vial 10 MG IV (22:25)
[2024-11-26 04:55] VITALS: BP 177/76; PULSE 76; RESP 16; TEMP 36.4; O2SAT 95
[2024-11-26 04:57] VITALS: BP 177/76; PULSE 76
[2024-11-26] MEDS: hydrALAZINE 20 MG/ML Vial 10 MG IV (04:57)
[2024-11-26 05:44] VITALS: BMI 31.4
[2024-11-26 06:24] VITALS: BP 160/65
[2024-11-26 06:49] LABS: Absolute Lymphocyte Count 2.59 X10^3/uL (0.83-4.51); Absolute Neutrophil Count 5.7 X10^3/uL (2.0-7.7); Basophil# 0.04 X10^3/uL; Basophil% 0.4 % (0-1); Eosinophil# 0.21 X10^3/uL; Eosinophils% 2.3 % (0-5); Hematocrit 35.3 % (37-47); Hemoglobin 11.4 g/dL (12.0-15.0); Lymphocyte # 2.59 X10^3/ul (0.83-4.51); Lymphocyte % 28.5 % (19-41); Mean Corp Hgb Conc 32.3 g/dL (32-36); Mean Corpuscular Hgb 28.3 pg (27.0-32.0); Mean Corpuscular Volume 87.6 fL (81-99); Mean Platelet Vol. 11.2 fl (6.2-12.0); Monocyte# 0.54 X10^3/uL; Monocyte% 5.9 % (0-10); NRBC Flagged by Analyzer 0 % (0-5); Neutrophil # 5.65 X10^3/uL (2.7-7.7); Neutrophil % 62.2 % (47-70); Platelet Count 260 K/mm3 (150-450); RBC Distribution Width CV 12.9 % (11.6-14.6); RBC Distribution Width SD 41.1 fl (35.1-43.9); Red Blood Count 4.03 M/mm3 (4.2-5.4); White Blood Count 9.1 K/mm3 (4.4-11.0)
--- NOTE | 2024-11-26 07:14 | PCM.PN.SRG ---
Subjective Subjective Patient reports she is passing flatus. She feels the need to have a bowel movement. She denies any nausea or vomiting with clear liquids. Objective Data Objective Data Vital Signs: Vital Signs Temp Pulse Resp BP Pulse Ox O2 Del Method O2 Flow Rate 97.6 F L 76 16 160/65 H 95 Room Air 2 11/26/24 04:55 11/26/24 04:57 11/26/24 04:55 11/26/24 06:24 11/26/24 04:55 11/26/24 04:55 11/24/24 06:40 Oxygen Flow Rate (L/min) 2 Oxygen Delivery Method Room Air Weight: 188 lb 11.451 oz Body Mass Index (BMI) 31.4 Intake & Output: Intake and Output for Last 24 Hours 11/24/24 11/25/24 11/26/24 23:59 23:59 23:59 Intake Total 1519.92 / 1519.92 1798.33 / 1997.33 350 / 350 Output Total 300 / 300 Balance 1219.92 / 1219.92 1798.33 / 1997. 350 / 350 Lab / Micro Data 11/26/24 05:15 11/25/24 06:26 Labs: Laboratory Results - last 24 hr 11/25/24 06:26: Sodium 143, Potassium 3.9, Chloride 110 H, Carbon Dioxide 22.7, Anion Gap 11, BUN 14, Creatinine 0.80, Estim Creat Clear Calc 82.18, Est GFR (MDRD) Non-Af 87, BUN/Creatinine Ratio 17.4, Glucose 156 H, Calcium 8.2 11/25/24 11:35: POC Glucose 210 H 11/25/24 16:43: POC Glucose 119 H 11/26/24 05:15: WBC 9.1, RBC 4.03 L, Hgb 11.4 L, Hct 35.3 L, MCV 87.6, MCH 28.3, MCHC 32.3, RDW Std Deviation 41.1, RDW Coeff of Prema 12.9, Plt Count 260, MPV 11.2, Immature Gran % (Auto) 0.700, Neut % (Auto) 62.2, Lymph % (Auto) 28.5, [place] % (Auto) 5.9, Eos % (Auto) 2.3, Baso % (Auto) 0.4, Absolute Neuts (auto) 5.7, Absolute Lymphs (auto) 2.59, Nucleated RBC % 0 Physical Exam Const oriented x3 and no apparent distress Resp normal respiratory effort GI soft to palpation and non-tender Assessment & Plan Assessment/Plan (1) Partial small bowel obstruction: PLAN: Patient seems comfortable. She tolerated clear liquids yesterday with no nausea or vomiting. I will try to advance her to full liquids today. Rafael Guerrero MD Pager: [facility] [address] [place] [address], [address] [place] [address] Office:
[2024-11-26 07:16] LABS: Anion Gap 11 (5-15); BUN 8 mg/dL (4-19); BUN/Creat Ratio 10.6 RATIO (10-20); Calcium,Total 8.6 mg/dL (7.6-11.0); Carbon Dioxide 23.8 mmol/L (21.0-32.0); Chloride 107 mmol/L (98-108); Creatinine, Serum 0.71 mg/dL (0.70-1.20); EST Glomerular Filtration Rate 101 (>60); Estimated Creatinine Clearance 93.66 ml/min (50-250); Glucose 122 mg/dL (70-99); Potassium 3.5 mmol/L (3.3-5.1); Sodium Level 141 mmol/L (133-145)
[2024-11-26 08:08] VITALS: BP 151/71; PULSE 83; RESP 16; TEMP 36.4; O2SAT 98
--- NOTE | 2024-11-26 08:21 | PN.HOSP_ITS ---
Reason for Visit Reason for Visit: Diagnoses Obesity, class 1 (11/23/24) Hypertensive urgency (11/23/24) Partial intestinal obstruction, unspecified as to cause (11/23/24) Fatty (change of) liver, not elsewhere classified (11/23/24) Periumbilical pain (11/23/24) Unspecified abdominal pain (11/23/24) Bilious vomiting (11/23/24) Nausea with vomiting, unspecified (11/23/24) Acquired absence of other specified parts of digestive tract (11/23/24) Other specified postprocedural states (11/23/24) Objective Data Objective Data Vital Signs: Vital Signs Temp Pulse Resp BP Pulse Ox O2 Del Method O2 Flow Rate 97.6 F L 83 16 151/71 H 98 Room Air 2 11/26/24 08:08 11/26/24 08:08 11/26/24 08:08 11/26/24 08:08 11/26/24 08:08 11/26/24 08:08 11/24/24 06:40 Oxygen Flow Rate (L/min) 2 Oxygen Delivery Method Room Air Weight: 188 lb 11.451 oz Body Mass Index (BMI) 31.4 Intake & Output: Intake and Output for Last 24 Hours 11/24/24 11/25/24 11/26/24 23:59 23:59 23:59 Intake Total 1519.92 / 1519.92 1798.33 / 1997.33 350 / 350 Output Total 300 / 300 Balance 1219.92 / 1219.92 1798.33 / 1997.33 350 / 350 Lab / Micro Data 11/26/24 05:15 11/26/24 05:15 Labs: Laboratory Results - last 24 hr 11/25/24 11:35: POC Glucose 210 H 11/25/24 16:43: POC Glucose 119 H 11/26/24 05:15: WBC 9.1, RBC 4.03 L, Hgb 11.4 L, Hct 35.3 L, MCV 87.6, MCH 28.3, MCHC 32.3, RDW Std Deviation 41.1, RDW Coeff of Prema 12.9, Plt Count 260, MPV 11.2, Immature Gran % (Auto) 0.700, Neut % (Auto) 62.2, Lymph % (Auto) 28.5, [place] % (Auto) 5.9, Eos % (Auto) 2.3, Baso % (Auto) 0.4, Absolute Neuts (auto) 5.7, Absolute Lymphs (auto) 2.59, Nucleated RBC % 0, Sodium 141, Potassium 3.5, Chloride 107, Carbon Dioxide 23.8, Anion Gap 11, BUN 8, Creatinine 0.71, Estim Creat Clear Calc 93.66, Est GFR (MDRD) Non-Af 101, BUN/Creatinine Ratio 10.6, G lucose 122 H, Calcium 8.6 Physical Exam Narrative Seen and examined Patient is passing gas but has not moved bowel yet. No fever. Blood pressure acceptable. She has not moved bowels yet. Physical exam General: Alert, Oriented x3, Cooperative HEENT: Atraumatic, PERRLA, EOMI, Normocephalic. Oral: No Gingival or Mucosal Lesions/ Ulcerations Neck: Supple, No JVD, Negative Carotid Bruits Chest wall/Lungs: Air entry equal in bilateral lung bases. No crepitation/rhonchi Cardiovascular: Regular rate and rhythm, Normal S1,S2, No M/G/R Abdomen: Bowel Sounds absent. Soft, Non Tender, Non-Distended. Lap ports dressings dry. : No dysuria. No renal angle tenderness. No suprapubic tenderness. Extremities: No edema, Capillary Refill Less than 3 Seconds Skin: No rashes, No breakdown Musculoskeletal: No Tenderness to Palpation of Joints or Extremities Neurological: Cranial nerves II-XII grossly intact, DTR 2+/4. No acute focal neurological deficit. Psych/Mental Status: Normal Affect, Appropriate. Assessment & Plan Assessment/Plan (1) Partial small bowel obstruction: PLAN: Plan Patient is a 54-year-old female who presented to [facility] ED on 11/23/2024 with abdominal pain and nausea with vomiting. 1. Partial small bowel obstruction, history of SBO s/p laparoscopy with lysis of adhesions in 2023, history of colorectal cancer s/p resection ? General Surgery following. Presented with abdominal pain and nausea with vomiting. CT abdomen pelvis showed wall thickening involving segment of small bowel with dilated small bowel proximal to this and left upper quadrant concerning for partial SBO. Refused NG placement in the ED. Unable to complete small bowel follow-through due to vomiting. On 11/23, s/p ex lap converted to open laparotomy with small bowel lysis of adhesions. 11/25: Patient passing flatus but did not had bowel movement. She had extensive laparoscopic surgery. Trial of sips of clear liquid diet. 11/26: Patient has not moved the bowel yet. Diet advanced to full liquid. 2. Hypertension, hyperlipidemia ? Continue home statin. Holding home lisinopril for now, restart as able. 3. Type 2 diabetes mellitus ? A1c 8.6% on admit. Only on dulaglutide at home. Blood sugars elevated to the high 200s postoperatively. Treating with Lantus 15 units daily and sliding scale insulin with meals every 6 hours for now, adjust as needed. 11/25: Glucose 110 and BMP. 150s to 170s. 4. Class I obesity ? BMI 31 on admit. Complicates hospital course, care and prognosis. DVT prophylaxis: Lovenox CODE STATUS: Full code, verified Expected disposition: Home, TBD Laboratory Results 11/26/24 05:15: WBC 9.1, RBC 4.03 L, Hgb 11.4 L, Hct 35.3 L, MCV 87.6, MCH 28.3, MCHC 32.3, RDW Std Deviation 41.1, RDW Coeff of Prema 12.9, Plt Count 260, MPV 11.2, Immature Gran % (Auto) 0.700, Neut % (Auto) 62.2, Lymph % (Auto) 28.5, [place] % (Auto) 5.9, Eos % (Auto) 2.3, Baso % (Auto) 0.4, Absolute Neuts (auto) 5.7, Absolute Lymphs (auto) 2.59, Nucleated RBC % 0, Sodium 141, Potassium 3.5, Chloride 107, Carbon Dioxide 23.8, Anion Gap 11, BUN 8, Creatinine 0.71, Estim Creat Clear Calc 93.66, Est GFR (MDRD) Non-Af 101, BUN/Creatinine Ratio 10.6, G lucose 122 H, Calcium 8.6 11/26/24 11:11: POC Glucose 198 H Charges/Coding Visit Charges Inpatient E&M: 72972 Subs Hosp L2
[2024-11-26] MEDS: Insulin Glargine-YFGN 100 UNIT/ML Pen 15 UNIT SC (08:28)
[2024-11-26] MEDS: Enoxaparin 40 MG/0.4 ML Syringe SC (08:28)
[2024-11-26] MEDS: Lisinopril 10 MG Tablet PO (08:29)
[2024-11-26] MEDS: Insulin Lispro 100 UNIT/ML INSULN.PEN SC ×2 (11:12→21:30)
[2024-11-26 11:31] LABS: Bedside Glucose 198 mg/dL (74-106)
[2024-11-26 14:03] VITALS: BP 168/81; PULSE 92; RESP 16; TEMP 36.4; O2SAT 97
[2024-11-26] MEDS: Atorvastatin Calcium 40 MG Tablet PO (21:23)
[2024-11-26] MEDS: Pantoprazole Sodium 40 MG in 0.9% Normal Saline (100mL MB+) 100 ML 330 MG IV (21:24)
[2024-11-26 21:38] VITALS: BP 177/78; PULSE 77; RESP 18; TEMP 36.6; O2SAT 98
[2024-11-26 21:51] LABS: Bedside Glucose 174 mg/dL (74-106)
--- NOTE | 2024-11-26 22:25 | NURSING ---
pt refused apresoline for bp in 170s. pt stated she doesnt like it and does not want any meds for it at this time
[2024-11-27 06:00] VITALS: BMI 31.4
[2024-11-27 06:12] VITALS: BP 160/68; PULSE 73; RESP 17; TEMP 36.9; O2SAT 97
[2024-11-27 06:13] LABS: Absolute Lymphocyte Count 2.25 X10^3/uL (0.83-4.51); Basophil# 0.04 X10^3/uL; Basophil% 0.5 % (0-1); Eosinophil# 0.29 X10^3/uL; Eosinophils% 3.6 % (0-5); Hematocrit 36.2 % (37-47); Hemoglobin 11.8 g/dL (12.0-15.0); Lymphocyte # 2.25 X10^3/ul (0.83-4.51); Mean Corp Hgb Conc 32.6 g/dL (32-36); Mean Corpuscular Hgb 28.3 pg (27.0-32.0); Mean Corpuscular Volume 86.8 fL (81-99); Mean Platelet Vol. 10.6 fl (6.2-12.0); Monocyte# 0.42 X10^3/uL; Monocyte% 5.2 % (0-10); NRBC Flagged by Analyzer 0 % (0-5); Neutrophil # 4.98 X10^3/uL (2.7-7.7); Neutrophil % 62.1 % (47-70); Platelet Count 275 K/mm3 (150-450); RBC Distribution Width CV 12.5 % (11.6-14.6); Red Blood Count 4.17 M/mm3 (4.2-5.4)
[2024-11-27 06:25] LABS: Bedside Glucose 158 mg/dL (74-106)
[2024-11-27 06:45] LABS: Anion Gap 10 (5-15); BUN 5 mg/dL (4-19); BUN/Creat Ratio 6.5 RATIO (10-20); Calcium,Total 8.9 mg/dL (7.6-11.0); Carbon Dioxide 25.3 mmol/L (21.0-32.0); Chloride 105 mmol/L (98-108); Creatinine, Serum 0.74 mg/dL (0.70-1.20); EST Glomerular Filtration Rate 95 (>60); Estimated Creatinine Clearance 89.81 ml/min (50-250); Glucose 154 mg/dL (70-99); Sodium Level 141 mmol/L (133-145)
[2024-11-27 06:57] VITALS: O2SAT 96
[2024-11-27] MEDS: Lisinopril 10 MG Tablet PO (07:37)
[2024-11-27 08:24] VITALS: BP 132/66; PULSE 59; RESP 16; TEMP 36.6; O2SAT 98
--- NOTE | 2024-11-27 11:07 | DCINST_ITS ---
Discharge Instructions Diet Discharge Diet: Soft diet (Soft diet for next few days.) DC O2, CPAP, BIPAP needs Home O2 Discharge instructions: No Dressing / Incision Discharge Activity: Return to Normal Activity Weight Bearing Status: Weight bearing as tolerated Dressing / Incision Call your doctor if you observe: Fever of 101 or Higher, Coldness, Increased Pain, Numbness or Tingling, Change in Color, Inability to urinate, Inability to have a bowel movement, Shortness of breath, Dizziness, Fainting spells, Swelling in the ankles, Chest pain, Prolonged hiccupping, Increased palpitations (irregular heartbeat) and Calf discomfort Follow Up Care When: IN 2 WEEKS Test Results: Test results from this visit will be discussed in further detail at your follow- up appointment, if applicable. Discharge Plan Admission Admit Date/Time: 11/23/24 00:40 Primary Reason for Your Visit: Small bowel obstruction Attending Provider: Jaden Nicholson Primary Care Provider: Luis Hdz Consulting Providers: Rafael Guerrero; Rai Casas; Itz Zelaya Discharge Orders/Prescriptions Prescriptions: Continued lisinopril 10 MG tablet 10 mg PO DAILY Qty: 30 1RF Trulicity 4.5 mg/0.5 mL pen injector 4.5 mg subcut QWEEK atorvastatin 40 mg tablet 40 mg PO QHS Referrals / Follow Up: Rafael Guerrero MD [Med Staff - Active Staff] - Within 2 Weeks Luis Hdz MD [Primary Care Provider] - Disposition Disposition (needs filled in before D/C Order can be placed): Home, Self Care
--- NOTE | 2024-11-27 11:12 | PCM.DC.SUM ---
Providers Date of Admission: 11/23/24 Date of Discharge: 11/27/24 Primary Care Physician: Dr. Luis Hdz MD Consultations 11/23/24 02:57 Consult: General Surgery Routine Consulting Provider: Rafael Guerrero Reason for Consult: Partial SBO. EMERGENT Consult: No MD Notified: Yes Date Notified: 11/23/24 Time Notified: 00:44 Method of Notification: ED Physician Initiated Reason For Visit: SUSPECTED SBO, N/VABDOMINAL PAIN AND Diagnosis Discharge Diagnosis (1) Partial small bowel obstruction: Status: Acute Code(s): K56.600 - Partial intestinal obstruction, unspecified as to cause Plan Patient is a 54-year-old female who presented to [facility] ED on 11/23/2024 with abdominal pain and nausea with vomiting. 1. Partial small bowel obstruction, history of SBO s/p laparoscopy with lysis of adhesions in 2023, history of colorectal cancer s/p resection ? General Surgery following. Presented with abdominal pain and nausea with vomiting. CT abdomen pelvis showed wall thickening involving segment of small bowel with dilated small bowel proximal to this and left upper quadrant concerning for partial SBO. Refused NG placement in the ED. Unable to complete small bowel follow-through due to vomiting. On 11/23, s/p ex lap converted to open laparotomy with small bowel lysis of adhesions. 11/25: Patient passing flatus but did not had bowel movement. She had extensive laparoscopic surgery. Trial of sips of clear liquid diet. 11/26: Patient has not moved the bowel yet. Diet advanced to full liquid. 11/27: Patient more bowel movement several times. She is already set to go home. Patient discharged home. 2. Hypertension, hyperlipidemia ? Continue home statin. Holding home lisinopril for now, restart as able. 3. Type 2 diabetes mellitus ? A1c 8.6% on admit. Only on dulaglutide at home. Blood sugars elevated to the high 200s postoperatively. Treating with Lantus 15 units daily and sliding scale insulin with meals every 6 hours for now, adjust as needed. 11/25: Glucose 110 and BMP. 150s to 170s. 11/27: Discussed about her hyperglycemia and she said usually her glucose is controlled on Trulicity at home. She did not want any further oral medications metformin and glipizide therefore advised follow with PCP 4. Class I obesity ? BMI 31 on admit. Complicates hospital course, care and prognosis. DVT prophylaxis: Lovenox CODE STATUS: Full code, verified Living will/advanced directive/end of life care: Patient does not have living will or advanced directive. After discussion of benefits/risks procedures involved with full code, DNR CC arrest and DNR CC, the patient opted for full code. Follow-up surgery within 2 weeks Patient does want artificial life support including intubation, tube feed, ventilator and/chest compression, central venous catheter, vasopressor and DC shock if needed Total time spent in [id number] encounter in discussion of advanced directive 17 minutes. Laboratory Results 11/26/24 05:15: WBC 9.1, RBC 4.03 L, Hgb 11.4 L, Hct 35.3 L, MCV 87.6, MCH 28.3, MCHC 32.3, RDW Std Deviation 41.1, RDW Coeff of Prema 12.9, Plt Count 260, MPV 11.2, Immature Gran % (Auto) 0.700, Neut % (Auto) 62.2, Lymph % (Auto) 28.5, Sherman % (Auto) 5.9, Eos % (Auto) 2.3, Baso % (Auto) 0.4, Absolute Neuts (auto) 5.7, Absolute Lymphs (auto) 2.59, Nucleated RBC % 0, Sodium 141, Potassium 3.5, Chloride 107, Carbon Dioxide 23.8, Anion Gap 11, BUN 8, Creatinine 0.71, Estim Creat Clear Calc 93.66, Est GFR (MDRD) Non-Af 101, BUN/Creatinine Ratio 10.6, Glucose 122 H, Calcium 8.6 11/26/24 11:11: POC Glucose 198 H Medications at Discharge Home Medications lisinopril 10 mg tablet 10 mg PO DAILY #30 tabs 04/29/17 atorvastatin 40 mg tablet 40 mg PO QHS cholesterol 03/19/24 dulaglutide 4.5 mg/0.5 mL subcutaneous pen injector (Trulicity) 4.5 mg subcut QWEEK 11/22/24 Physical Exam Narrative Seen and examined Patient moved bowels several times. She wants to go home and watch handball game of her grandson. Physical exam General: Alert, Oriented x3, Cooperative HEENT: Atraumatic, PERRLA, EOMI, Normocephalic. Oral: No Gingival or Mucosal Lesions/ Ulcerations Neck: Supple, No JVD, Negative Carotid Bruits Chest wall/Lungs: Air entry equal in bilateral lung bases. No crepitation/rhonchi Cardiovascular: Regular rate and rhythm, Normal S1,S2, No M/G/R Abdomen: Bowel Sounds present. Soft, Non Tender, Non-Distended. Lap ports dressings dry. : No dysuria. No renal angle tenderness. No suprapubic tenderness. Extremities: No edema, Capillary Refill Less than 3 Seconds Skin: No rashes, No breakdown Musculoskeletal: No Tenderness to Palpation of Joints or Extremities Neurological: Cranial nerves II-XII grossly intact, DTR 2+/4. No acute focal neurological deficit. Psych/Mental Status: Normal Affect, Appropriate. Weight / BMI Weight Weight: 188 lb 7.924 oz Body Mass Index (BMI) 31.4 ABG / Lab / Microbiology Data 11/27/24 05:53 11/27/24 05:53 Laboratory: Laboratory Results - last 24 hr 11/26/24 21:29: POC Glucose 174 H 11/27/24 05:53: WBC 8.0, RBC 4.17 L, Hgb 11.8 L, Hct 36.2 L, MCV 86.8, MCH 28.3, MCHC 32.6, RDW Std Deviation 39.0, RDW Coeff of Prema 12.5, Plt Count 275, MPV 10.6, Immature Gran % (Auto) 0.600, Neut % (Auto) 62.1, Lymph % (Auto) 28.0, Sherman % (Auto) 5.2, Eos % (Auto) 3.6, Baso % (Auto) 0.5, Absolute Neuts (auto) 5.0, Absolute Lymphs (auto) 2.25, Nucleated RBC % 0, Sodium 141, Potassium 4.0, Chloride 105, Carbon Dioxide 25.3, Anion Gap 10, BUN 5, Creatinine 0.74, Estim Creat Clear Calc 89.81, Est GFR (MDRD) Non-Af 95, BUN/Creatinine Ratio 6.5 L, Glucose 154 H, Calcium 8.9 11/27/24 06:07: POC Glucose 158 H D/C Instructions Discharge Diet: Soft diet (Soft diet for next few days.) Weight Bearing Status: Weight bearing as tolerated Call your doctor if you observe: Fever of 101 or Higher, Coldness, Increased Pain, Numbness or Tingling, Change in Color, Inability to urinate, Inability to have a bowel movement, Shortness of breath, Dizziness, Fainting spells, Swelling in the ankles, Chest pain, Prolonged hiccupping, Increased palpitations (irregular heartbeat) and Calf discomfort DC O2, CPAP, BIPAP Needs Home O2 Discharge instructions: No When: IN 2 WEEKS Meaningful Use Info Meaningful Use Meaningful Use Diagnoses (Choose all that apply): None applicable Ischemic Stroke Statin Dosing Therapy Reference: STATIN DOSE THERAPY REFERENCE: * Patients > 75 years receive moderate or high dose statin therapy. * Patients 75 years or YOUNGER should receive HIGH intensity statin dose unless contraindicated. You will be required to document reason for non-treatment if statin daily dose does not meet guidelines. HIGH DOSE STATIN THERAPY DAILY Atorvastatin > than or = to 40 mg Rosuvastatin > than or = to 20 mg Amlodipine + Atorvastatin > than or = to 2.5/40 mg Ezetimibe + Simvastatin 10/80 mg Simvastatin 80mg Discharge Plan Admission Admit Date/Time: 11/23/24 00:40 Primary Reason for Your Visit: Small bowel obstruction Attending Provider: Jaden Nicholson Primary Care Provider: Luis Hdz Consulting Providers: Rafael Guerrero; Rai Casas; Itz Zelaya Discharge Orders/Prescriptions Prescriptions: Continued lisinopril 10 MG tablet 10 mg PO DAILY Qty: 30 1RF Trulicity 4.5 mg/0.5 mL pen injector 4.5 mg subcut QWEEK atorvastatin 40 mg tablet 40 mg PO QHS Referrals / Follow Up: Rafael Guerrero MD [Med Staff - Active Staff] - Within 2 Weeks Luis Hdz MD [Primary Care Provider] - Disposition Disposition (needs filled in before D/C Order can be placed): Home, Self Care Charges/Coding Visit Charges Inpatient E&M: 13433 Disch Hosp >30min
[2024-11-27 11:30] VITALS: BP 168/80; PULSE 86; RESP 16; TEMP 36.2; O2SAT 99
== END 2024-11-27 11:24 | disposition home or self-care (01) | DRG 337 ==
LOC: ED 23:18 → MS3 11-23 00:51
PROVIDERS: Hospitalist; Physician Assistant; Surgery; Admitting Provider Internal Medicine; Emergency Provider Emergency Medicine; PCP Family Medicine; Visit Provider Internal Medicine
PROC: 0DN80ZZ Release Small Intestine, Open Approach (ICD-10-PCS; CPT 44202; principal; 2024-11-23 16:10)
DX: K56.51 Intestinal adhesions [bands], with partial obstruction (principal); I16.0 Hypertensive urgency; E11.65 Type 2 diabetes mellitus with hyperglycemia; K76.0 Fatty (change of) liver, not elsewhere classified; Z68.31 Body mass index [BMI] 31.0-31.9, adult; I10 Essential (primary) hypertension; E78.5 Hyperlipidemia, unspecified; E66.811 Obesity, class 1; Z90.49 Acquired absence of other specified parts of digestive tract; Z79.85 Long-term (current) use of injectable non-insulin antidiabetic drugs; Z79.899 Other long term (current) drug therapy; Z85.038 Personal history of other malignant neoplasm of large intestine; Z53.31 Laparoscopic surgical procedure converted to open procedure
CPT/HCPCS: 36415; 74018; 74177; 80048; 80053; 81001; 82962; 83036; 83605; 83690; 83735; 84100; 84443; 85025; 85027; 93005; 94668; 99285; Q9967; A4216; J2405